=== PATIENT | male | born 1975 | race Caucasian/White ===

== ENCOUNTER 2017-02-02 01:02 | Emergency (ER) | payer OTHER ==
[~2017-02-02] VITALS: Ht 182.9 cm; Wt 96.9 kg
[~2017-02-02 01:02] MED LIST: ABL/5 PO; CTP1 PO; INSU100I2 SC; INSUINJ4 SC; INSUINJ4 SQ; KLN1X PO; LISI-787 PO; METF-384 PO; OMEP40CA PO; PRAZ1CAP28 PO; PRZ/40 PO
[2017-02-02 01:06] VITALS: TEMP 36.8; Ht 182.9 cm; Wt 96.9 kg
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
[2017-02-02 03:45] VITALS: BP 154/105; PULSE 104; O2SAT 98
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
== END 2017-02-02 03:46 | disposition home or self-care (01) ==
LOC: C.EDB 01:04
DX: S89.91XA Unspecified injury of right lower leg, initial encounter (principal); V39.3XXA Occupant (driver) (passenger) of three-wheeled motor vehicle injured in unspecified nontraffic accident, initial encounter; H53.8 Other visual disturbances; E11.9 Type 2 diabetes mellitus without complications; I10 Essential (primary) hypertension; E78.5 Hyperlipidemia, unspecified; F31.9 Bipolar disorder, unspecified; G89.29 Other chronic pain; F17.200 Nicotine dependence, unspecified, uncomplicated; Z86.73 Personal history of transient ischemic attack (TIA), and cerebral infarction without residual deficits; Z86.19 Personal history of other infectious and parasitic diseases; Z87.828 Personal history of other (healed) physical injury and trauma; Z91.81 History of falling; Z79.4 Long term (current) use of insulin; Z79.899 Other long term (current) drug therapy; Z83.3 Family history of diabetes mellitus; Z80.9 Family history of malignant neoplasm, unspecified; Z82.49 Family history of ischemic heart disease and other diseases of the circulatory system

== ENCOUNTER 2017-07-01 21:52 | Emergency (ER) | payer OTHER ==
[~2017-07-01] VITALS: Ht 182.9 cm; Wt 83.1 kg
[2017-07-01 21:54] VITALS: TEMP 36.8; Ht 182.9 cm; Wt 83.1 kg
[2017-07-01] MEDS ORDERED: KETOROLAC TROMETHAMINE 30 MG/ML VIAL IV STA (22:16)
[2017-07-01] MEDS ORDERED: MAGNESIUM SULFATE 1GM / D5W 1 GM BAG IV STA (22:16)
[2017-07-01] MEDS ORDERED: DiphenhydrAMINE HCL 50 MG/ML VIAL IV STA (22:16)
[2017-07-01] MEDS ORDERED: PROCHLORPERAZINE 5 MG/ML 2 ML VIAL IV STA (22:16)
[2017-07-01] MEDS ORDERED: ASPI-390 PO (22:47)
[2017-07-01] MEDS ORDERED: PRLSR20 PO (22:47)
[2017-07-01] MEDS ORDERED: DIPH25CA5 PO (22:47)
[2017-07-01] MEDS ORDERED: MELA1CAP PO (22:47)
[2017-07-01] MEDS ORDERED: PROCHLORPERAZINE INJ 10 MG in SYRINGE 8 ML IV STA (22:51)
[2017-07-01] MEDS ORDERED: DEXAMETHASONE INJ 10 MG in SYRINGE 0 ML IV STA (23:35)
[2017-07-01] MEDS ORDERED: DEXAMETHASONE **PF** INJ 10 MG/ML VIAL ONE (23:48)
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
[2017-07-02 00:01] VITALS: BP 161/106; PULSE 104; O2SAT 96
== END 2017-07-02 00:02 | disposition home or self-care (01) ==
LOC: C.EDB 21:52 → C.EDC 07-02 00:02
DX: R51 Headache (principal); Z86.73 Personal history of transient ischemic attack (TIA), and cerebral infarction without residual deficits; E11.49 Type 2 diabetes mellitus with other diabetic neurological complication; I10 Essential (primary) hypertension; G45.9 Transient cerebral ischemic attack, unspecified; Z83.3 Family history of diabetes mellitus; Z82.49 Family history of ischemic heart disease and other diseases of the circulatory system; Z79.82 Long term (current) use of aspirin

== ENCOUNTER 2017-08-28 12:37 | Emergency (ER) | payer OTHER ==
[~2017-08-28] VITALS: Ht 182.9 cm; Wt 84.0 kg
[~2017-08-28 12:37] MED LIST changes: -ABL/5 PO; +ASPI-390 PO; -CTP1 PO; +DIPH25CA5 PO; -INSU100I2 SC; -INSUINJ4 SC; -INSUINJ4 SQ; -KLN1X PO; -LISI-787 PO; +MELA1CAP PO; -METF-384 PO; -OMEP40CA PO; -PRAZ1CAP28 PO; +PRLSR20 PO; -PRZ/40 PO
[2017-08-28 12:39] VITALS: TEMP 36.7; Ht 182.9 cm; Wt 84.0 kg
--- NOTE | 2017-08-28 14:25 | DIAGNOSTIC IMAGING REPORT ---
ABDOMEN LIMITED (US) HISTORY: Mass Left flank. COMPARISON: None. FINDINGS: Ultrasonic evaluation of the posterior left flank confirms presence of a slightly heterogeneous 7 x 6 x 3 cm masslike process. This is reasonably well-circumscribed. It potentially relates to a lipoma. IMPRESSION: Palpable nodule relates to a 7 x 6 x 3 cm masslike process in the subcutaneous tissues. This potentially relates to a lipoma The above report was generated using voice recognition software. It may contain grammatical, syntax or spelling errors. Electronically signed by: Teofilo Colvin M.D. 08/28/2017 2:23 PM Dictated Date/Time: 08/28/2017 2:22 PM
[2017-08-28 14:49] VITALS: BP 139/102; PULSE 118; O2SAT 96
--- NOTE | 2017-08-28 17:54 | EMERGENCY ROOM VISIT NOTE ---
History First contact with patient: 12:59 Chief Complaint: BACK PAIN Stated Complaint: PAINFUL LUMP ON BACK History of Present Illness The patient is a 42 year old white male who presents to the Emergency Room with complaints of a painful lump on his left flank. He thinks it has been present for over 2 weeks but it just became painful over the last 2 days. He denies any trauma to the area. He denies any bites or stings. He is not sure what it is. His mother accompanies him today. He notes that it is painful when he lays on it or sits against it. No prior history of similar mass. No other complaints at this time. No treatment yet. Review of Systems REVIEW OF SYSTEM: HEENT: No dizziness, visual problems, hearing loss, or tinnitus. There is no difficulty swallowing and no oral lesions are present. PULMONARY: No cough, shortness of breath, sputum production or hemoptysis. CARDIOVASCULAR: No chest pain, palpitations, shortness of breath or peripheral edema. GASTROINTESTINAL: No diarrhea, constipation, nausea, vomiting, or abdominal pain. GENITOURINARY: No dysuria, frequency, urgency or nocturia. NEUROLOGIC: No weakness, muscle tenderness, epilepsy or history of neurological problems. MUSCULOSKELETAL: No history of joint tenderness/swelling. Positive history of chronic back pain. SKIN: No rashes or lesions. PSYCHIATRIC: Positive history of depression and suicidal ideation. ENDOCRINE: No history of diabetes, thyroid disorders, or abnormal hair growth. Past Medical/Surgical History Medical Problems: (1) Acute CVA (cerebrovascular accident) (2) Ankle pain (3) Back pain (4) Back pain (5) Back pain (6) Back strain (7) Bilateral anterior knee pain (8) Bilateral chronic knee pain (9) Bipolar depression (10) Burn from the sun (11) Cellulitis of arm, right (12) Chronic dental pain (13) Contusion of foot (14) Contusion of right knee and lower leg (15) Contusion of right shoulder (16) Dental caries (17) Depression (18) Depressive Disorder Nec (19) Diabetes mellitus type 2 (20) DM (diabetes mellitus) type II controlled, neurological manifestation (21) Fall (22) Headache (23) Headache (24) Headache (25) Homicidal ideations (26) HTN (hypertension) (27) HTN (hypertension) (28) HTN (hypertension) (29) HTN (hypertension) (30) Hyperglycemia (31) Hyperglycemia (32) Hyperlipidemia Nec/Nos (33) Hypertension (34) Hypertension (35) Hypertension Nos (36) Hypoglycemia (37) Left knee pain (38) Low back pain (39) Migraine (40) Migraine (41) Migraine (42) Migraine (43) Migraine (44) Migraine (45) Migraine (46) Migraine (47) Migraine (48) Migraine Unspecified W/O Intract Mgrn W/O Status Migrainosus (49) Mood disorder (50) Mood disorder (51) Mood disorder (52) Mood disorder (53) Multiple abrasions (54) Nausea vomiting and diarrhea (55) Noncompliance with medication regimen (56) Numbness and tingling (57) Pain, dental (58) Pain, dental (59) Pain, dental (60) Right ankle pain (61) Right knee pain (62) Suicidal ideation (63) Suicidal ideation (64) TIA (transient ischemic attack) (65) Tobacco Use Disorder (66) Uncontrolled hypertension (67) Uncontrolled hypertension (68) Uncontrolled hypertension Family History Diabetes mellitus FH: cancer Hypertension Social History Smoking Status: Never Smoker Smokeless Tobacco Use: No Alcohol Use: none Drug Use: none Marital Status: single Housing Status: lives alone Occupation Status: unemployed Current/Historical Medications Scheduled Wzrcodl-Dmrlnfmmhiewd-Grocksgh (Excedrin Migraine), 2 MG PO DAILY Diphenhydramine Hcl (Benadryl), 25-50 MG PO PRN UD Scheduled PRN Melatonin (Melatonin), 1 CAP PO HS PRN for Sleep Omeprazole (Prilosec), 20 MG PO DAILY PRN for ACID REFLEX Physical Exam Vital Signs Date Time Temp Pulse Resp B/P (MAP) Pulse Ox O2 Delivery O2 Flow Rate FiO2 08/28/17 14:49 118 20 139/102 96 08/28/17 12:39 36.7 125 18 141/101 98 Room Air Physical Exam General: Well-developed, well-nourished, middle-aged white male, in obvious discomfort. No acute distress. Sitting on the bed. Alert and oriented. Skin: Warm and dry with good turgor. Extensive tattoos. No rashes or lesions. No ecchymosis or erythema. The patient is not diaphoretic. No abrasions. He has a large firm mass present over the left flank. It is approximately 8 cm x 8 cm. Firm, tender to touch, feels consistent with lipoma. Nonfluctuant. No central core. It is superficial. Musculoskeletal: Good range of motion of the back. Full range of motion of the upper and lower extremities. No pain with palpation over the left paraspinal musculature. Neurologic: Gross sensation is intact across the left flank by soft touch. Medical Decision & Procedures ER Provider Diagnostic Interpretation: Soft tissue ultrasound obtained today was reviewed by me and read by radiology. He has a soft tissue mass that is 7 cm x 6 cm x 3 cm. It is consistent with lipoma. ED Course Patient and his mother were educated regarding today's findings. Conservative care measures were discussed. He was informed that it is likely a lipoma. Soft tissue ultrasound was obtained that is consistent with this. He was instructed to use oral anti-inflammatories as needed for discomfort. Supplement with Tylenol every 6 hours. Ice to the area intermittently until pain resolves. Follow-up with general surgery if he would like to have it excised. Return to the ED for any other concerns. He is currently hypertensive. This is his baseline. He should have it rechecked with his PCP. Patient is aware. Medical Decision Possibility of lipoma, tumor, abscess, and cyst were considered. Medication Reconcilliation Current Medication List: was personally reviewed by me Blood Pressure Screening Blood pressure disposition: Elevated BP felt to be situational Impression Primary Impression: Lipoma of back Departure Information Dispostion Home / Self-Care Condition FAIR Referrals Juan A Kirkpatrick M.D. Forms HOME CARE DOCUMENTATION FORM, MOTRIN USE, TYLENOL USE, IMPORTANT VISIT INFORMATION Patient Instructions [employer] Additional Instructions Apply ice intermittently as needed for discomfort, 3 days, then use moist heat Motrin every 6 hours as needed for discomfort Avoid prolonged pressure over the area until discomfort resolves Follow-up with your PCP as needed Call Dr. Kirkpatrick to discuss surgical removal if desired
== END 2017-08-28 14:51 | disposition home or self-care (01) ==
LOC: C.EDB 12:38 → C.EDD 14:51
DX: D17.1 Benign lipomatous neoplasm of skin and subcutaneous tissue of trunk (principal); G89.29 Other chronic pain; M54.9 Dorsalgia, unspecified; Z86.73 Personal history of transient ischemic attack (TIA), and cerebral infarction without residual deficits; F31.9 Bipolar disorder, unspecified; E11.9 Type 2 diabetes mellitus without complications; I10 Essential (primary) hypertension; Z83.3 Family history of diabetes mellitus; Z80.9 Family history of malignant neoplasm, unspecified; Z82.49 Family history of ischemic heart disease and other diseases of the circulatory system; Z79.82 Long term (current) use of aspirin

== ENCOUNTER 2022-06-16 08:06 | Observation (INO) ==
[2022-06-16] MEDS ORDERED: MIDAZOLAM HCL 1 MG/ML 2ML VIAL ONE (09:43)
[2022-06-16] MEDS ORDERED: niCARdipine HCL INJ 2.5 MG/ML 10 ML AMP ONE (09:43)
[2022-06-16] MEDS ORDERED: HEPARIN (PORCINE) 1000 UNIT/ML 10 ML (CATH LAB USE ONLY) ONE (09:43)
[2022-06-16] MEDS ORDERED: fentaNYL citrate 100 MCG/2 ML VIAL ONE (09:43)
[2022-06-16] MEDS ORDERED: NITROGLYCERIN/D5W 100MCG/ML 20ML SYR ONE (09:44)
--- NOTE | 2022-06-16 09:44 | History & Physical Bridge Note ---
Date of Service June 16, 2022 History & Physical Bridge Note I have examined the patient, reviewed the History & Physical and in the interval since the performance of the History & Physical I have noted the following changes of clinical significance: no changes noted
--- NOTE | 2022-06-16 09:44 | Pre Anesthesia Assessment ---
Date of Service June 16, 2022 Pre Sedation Assessment Vital Signs Temp Pulse Resp BP Pulse Ox O2 Del Method 06/16/22 08:22 36.8 C 89 16 164/99 H 100 Room Air Cardiovascular RRR, no murmur, no edema + S1 normal and + S2 normal; no murmur + femoral pulses present and + radial pulses present; no JVD Respiratory normal respiratory effort, lungs clear to auscultation Pre-Sedation Airway Assessment Smoking Status: Former smoker Hx Sleep Apnea: No Short, Thick Neck: No Thyromental Distance: > or= 3.5 Finger Breadths Oral Cavity: + WNL Mallampati Class: III ASA: ASA4 NPO Status Date of Last Intake of Fluids: 06/16/22 Time of Last Intake of Fluids: 04:00 Last Oral Intake of Fluids Comment: sip with meds Date of Last Intake of Solid Food: 06/13/22 Notes The planned sedation has been discussed with the patient. Informed Consent was obtained. I have identified the patient, determined the appropriateness of sedation and have assessed the patient immediately prior to the procedure. All medicine(s) and interventions are by my order.
--- NOTE | 2022-06-16 10:30 | Cardiac Catheterization ---
Cardiac Cath Procedure Brief Procedure Date June 16, 2022 Pre-Procedure Diagnosis Pre-Procedure Diagnosis: Angina AUC Score AUC Score: 7 Post-Procedure Diagnosis Post-Procedure Diagnosis: Severe CAD Procedure(s) Performed Procedure(s) Performed: Coronary Angiography, Left Heart Cath and LV Angiography Room Service Clerk Andrea Alford MD Senior Java Developer(s) Joelle Ignacio Estimated Blood Loss Estimated Blood Loss: <15cc Medication(s) Medication(s): Fentanyl (12.5 mcg IV), Heparin (5000 units IV), Lidocaine 1% (Local infiltration access site), Nicardipine (250 mcg intra-arterial after arterial sheath insertion) and Versed (1 mg IV) Preliminary Findings Impression: Right dominant coronary anatomy Coronary artery disease moderate diffuse with 90% circumflex obtuse marginal, large vessel likely symptom culprit vessel. Left anterior descending has a smooth 6070 % stenosis possibly more significant after first diagonal Minimal hypokinesis inferior wall with preserved LV function otherwise EF greater than 55% Recommendations Recommendations: PCI without planned CABG Specimens Specimens: None Fluids (cc crystalloids) Fluids (cc crystalloids): 50 Anesthesia Start time: 956, stop time: 1015 Procedural Complication(s) None Disposition Patient referred for PCI same setting
[2022-06-16] MEDS ORDERED: ADENOSINE IV SOLN 3 MG/ML 20 ML VIAL IV ONE (10:46)
[2022-06-16] MEDS ORDERED: hydrALAZINE HCL 20 MG/ML VIAL ONE (10:52)
--- NOTE | 2022-06-16 10:56 | Cardiac Catheterization ---
Cardiac Cath Procedure Full Procedure Date June 16, 2022 Pre-Procedure Diagnosis Pre-Procedure Diagnosis: Angina AUC Score AUC Score: 7 Post-Procedure Diagnosis Post-Procedure Diagnosis: Severe CAD Procedure(s) Performed Procedure(s) Performed: Coronary Angiography, Left Heart Cath and LV Angiography Industrial Hygiene Manager Andrea Alford MD Short Filler Bunch Machine Operator(s) Joelle Ignacio Estimated Blood Loss Estimated Blood Loss: <15cc Medication(s) Medication(s): Fentanyl (12.5 mcg IV), Heparin (5000 units IV), Lidocaine 1% (Local infiltration access site), Nicardipine (250 mcg intra-arterial after arterial sheath insertion) and Versed (1 mg IV) Summary of Findings Impression: Right dominant coronary anatomy Coronary artery disease moderate diffuse with 90% circumflex obtuse marginal, large vessel likely symptom culprit vessel. Left anterior descending has a smooth 6070 % stenosis possibly more significant after second diagonal Minimal hypokinesis inferior wall with preserved LV function otherwise EF greater than 55% Recommendations: Patient referred for coronary intervention left circumflex and FFR interrogation left anterior descending Procedure: Left heart catheterization coronary, LV angiography Access: Right radial Catheters: 6 Czech long glide sheath, 5 Czech [place] 5 Czech straight pigtail Complications: None Coronary angiography: Right dominant anatomy Left main: Moderate caliber and length with minimal calcification Left anterior descending: Type III in distribution. It gives rise to an early diagonal branch followed by a larger second diagonal branch all within its very proximal third. It then courses giving rise to a trivial third diagonal branch before reaching beyond the apex. Within the left anterior descending there is diffuse luminal irregularities with a long 60 to 70% stenosis after the second diagonal branch. The apical segment has serial stenoses of 70 to 80% with thin caliber vessel. Left circumflex: Large but nondominant vessel. Gives rise to a large multi branching obtuse marginal then continues as a very modest caliber vessel giving rise to a single posterolateral branch. The obtuse marginal has a 90% discrete stenosis in its proximal portion. There is an additional 50% stenosis in its midportion Right coronary artery: Moderately large dominant vessel. Gives rise to 2 trivial RV branches in its midportion. At the AV groove it gives rise to a long posterior descending artery modest in caliber and along the AV groove 3 posterior ventricular branches. There is mild luminal irregularities in the proximal midportion of the right coronary artery and a long 60% stenosis at the AV groove. The origin of the posterior descending artery is narrowed by 50%. There is a 6070 % stenosis in its very distal portion (thin caliber) LV angiography: There is very subtle hypokinesis of the inferior wall EF 60% there is no mitral sufficiency Hemodynamics Rest Ao:: 167/101/134 Final Ao: 169/94/122 LV: 169/0/16 Recommendations Recommendations: PCI without planned CABG Specimens Specimens: None Radiation Exposure (mGy) 549 Contrast (mls) 75 Fluids (cc crystalloids) Fluids (cc crystalloids): 50 Anesthesia Start time: 956, stop time: 1015 Procedural Complication(s) None Disposition Patient referred for PCI same setting I attest to the content of the Intraoperative Record and any orders documented therein. Any exceptions are noted below. ACC Data: Senior Grants Officer Cardiac Status Clinical evaluation leading to the procedure 46-year-old male diabetic with multiple cardiovascular risk factors of hypertension and hyperlipidemia in addition to above who presented with symptoms consistent with exertional angina and an increasing pattern. Echocardiogram d emonstrated wall motion abnormality/cardiomyopathy. Patient referred for coronary angiography CAD Presenation: Stable angina Anginal Classification: CCS III Heart Failure: No Cardiogenic Shock within 24 Hours: No Cardiac Arrest within 24 Hours: No Imaging Studies Past 6 Months: Yes Stress Studies Past 6 Months: No Standard Exercise Test: No Stress Echocardiogram: No Stress Testing w/SPECT MPI: No Cardiac CTA: No Coronary Anatomy Dominant: Right Left Main (% Stenosis): Mid (Minimal luminal irregularities) LAD (% Stenosis): Mid (60-70) and Distal (Serial 70-80 in its apical portion, thin caliber) D1 (% Stenosis): Normal D2 (% Stenosis): Proximal (50) Circumflex (% Stenosis): Mid (Moderate irregularities with modest caliber vessel after large obtuse marginal) OM1 (% Stenosis): Proximal (90%) and Mid (50%) RCA (% Stenosis): Distal (60) R PDA (% Stenosis): Ostial (50) and Distal (60) R PL1 (% Stenosis): Normal R PL2 (% Stenosis): Normal Left Ventricular Angiography EF (%): 60 Mitral Regurgitation: None Diagnostic Physicians Name: Andrea Alford MD Status: Elective Closure Device Percutaneous Entry Location: Radial Recommendations: PCI without planned CABG
[2022-06-16] MEDS ORDERED: TICAGRELOR 90 MG TAB ONE (10:59)
--- NOTE | 2022-06-16 11:20 | Post Anesthesia Assessment ---
Date of Service June 16, 2022 Post Sedation Assessment Vital Signs Temp Pulse Resp BP Pulse Ox O2 Del Method 06/16/22 08:22 36.8 C 89 16 164/99 H 100 Room Air Recovery Score Activity: Moves 4 extremities Respiration: Deep Breath/Cough Circulation: +/-20% PreAnes Value Consciousness: Fully Awake Oxygen Saturation: > 92% On Room Air Discharge Sedation Level of Care: Phase I Post Sedation Plan On clinical assessment, the patient appears to have tolerated the sedation without complications. Patient is recovering as anticipated. Patient will continue to be monitored by nursing and may be discharged when carrington tion discharge criteria are met per below protocol. Upon Completions of procedure up to 15 minutes continue every 5 minute vital signs and the P.A.R. score; then discharge to a Phase I or Fast Track to Phase II per the following guidelines: * Discharge Patient to appropriate Phase II area if PAR is 8 or greater or return to pre- procedure baseline. The post - procedure orders will be as directed. * If PAR score is less than 8 or not return to pre-procedure baseline then patient will follow Phase I monitoring till PAR is reached for Phase II. The Phase I may be done in procedure room or may call to secure a Phase I area. * If naloxone or flumazenil are used for reversal, hold in Phase I for continued monitoring from when last reversal dose was given for a minimum of 60 minutes or longer pending the nurse and/or physician discretion of patient condition before discharge to Phase II. Please call the Sedation Physician to re-evaluate and complete post-note for discharge to Phase II area. Do NOT discharge from procedure sedation or Phase 1 until post- sedation evaluation note is complete by procedure /sedation MD Sedation Discharge Instructions to be given to the patient at discharge to home. [facility] Procedure Codes (Charges) Indication for Procedure Indication for procedure: unstable angina Sedation/Anesthesia Procedure 1: Sedation/Anesthesia: 85859 Mod Sedation by a different physician ;Init15 Min Child Age 5&Up (15 mins) Total Sedation Time (minutes): 15
--- NOTE | 2022-06-16 11:23 | Cardiac Catheterization ---
ACC Data: Long Lines Operator Cardiac Status Clinical evaluation leading to the procedure CAD Presenation: Unstable angina Anginal Classification: CCS III Heart Failure: No Cardiogenic Shock within 24 Hours: No Cardiac Arrest within 24 Hours: No Coronary Anatomy LAD (% Stenosis): Mid (Late mid through early distal long eccentric 50 to 70% stenosis) OM1 (% Stenosis): Proximal (90%) and Mid (50%) Diagnostic Physicians Name: Juan Carlos Rojas MD, PhD Closure Device Percutaneous Entry Location: Radial Closure Device: Radial Band Recommendations: PCI without planned CABG PCI Indication: Unstable Angina Lesion Segment Name: Proximal through mid OM1. Culprit Artery: Yes Stenosis Prior to Rx (%): 90% Chronic Total Occlusion: No Pre-Procedure SARTHAK Flow: 3 Previously Treated Lesion: No Lesion Complexity: Non-High/Non-C Lesion Length (mm): 18 mm Thrombus Present: No Bifurcation Lesion: No Guidewire Across Lesion: Yes Lesion #2 Segment Name: Mid to distal LAD Culprit Artery: No Stenosis Prior to Rx (%): 50 to 70% Chronic Total Occlusion: No FFR: Yes Ratio: greater than 0.75% Guidewire Across Lesion: Yes Cardiac Cath Procedure Full Procedure Date June 16, 2022 Pre-Procedure Diagnosis Pre-Procedure Diagnosis: Acute Coronary Syndrome (unstable angina) AUC Score AUC Score: 7 Post-Procedure Diagnosis Post-Procedure Diagnosis: Severe CAD and Successful PCI Procedure(s) Performed Procedure(s) Performed: Drug Eluting Stent and Fractional Flow [place] Sewing Machine Operator Juan Carlos Rojas MD, PhD Freight Handler(s) RT Brina Estimated Blood Loss Estimated Blood Loss: <15cc Medication(s) Medication(s): Fentanyl, Heparin, Hydralazine and Versed Summary of Findings Brief description: Patient had just undergone diagnostic coronary angiography performed by Dr. Andrea Alford. See his report for details. Patient was provided additional sedation including IV fentanyl and Versed. He was provided IV hydralazine for hypertension. An ACT was checked and additional IV heparin was provided as needed to maintain therapeutic anticoagulation. PCI was undertaken using a 6 [place] EBU 3.0 guide catheter. Through this, a BMW reversal guidewire was advanced and positioned distally in the obtuse marginal branch of the circumflex. Lesion was predilated with a 2.0 x 12 mm balloon up to 12 sophy multiple times. Balloon was removed. A 2.25 x 15 mm drug-eluting stent was then advanced and positioned such that its distal end was beyond the distal portion of the lesion. This was then deployed at 12 sophy. Stent balloon was removed. A 2.5 x 8 mm Scott drug-eluting stent was then advanced over the guidewire and positioned just proximal to the initial stent with its distal edge overlapped with the proximal portion of the initial stent. This was then deployed at 14 sophy. Balloon was removed. The entire stent train (except the most distal portion)was postdilated using a 2.5 x 9 mm NC sprinter balloon in order to taper the proximal to distal diame ter. Balloon was removed and sales vice president angiography was performed. Guidewire was pulled back into the guide catheter and we next proceeded with FFR analysis of the LAD lesion. Transaq versa guidewire was redirected into the LAD and positioned in the distal vessel. Over this, the Navvus catheter was advanced and positioned with its transducer just distal to the guide catheter tip. Pressures were equalized. The Navvus catheter was then advanced and positioned distal to the LAD lesion. Adenosine was then infused at 140 mcg/kg/min for 3 minutes. Continuous FFR analysis was performed. Peak FFR was recorded. Adenosine was discontinued and the FFR catheter was then removed. The guidewire was removed and final angiographic evaluation was performed. The guide catheter was then removed. Radial artery sheath was removed and hemostasis was obtained using a TR band. Patient was hemodynamically stable and asymptomatic. He was returned to the recovery area. This ended the case. FFR and PCI findings: 1. FFR of LAD equals 0.82., Therefore, this is not hemodynamically significant. 2. PCI of OM (90% stenosis) with 2 overlapped drug-eluting stents resulting in 0% residual stenosis post PCI 3. SARTHAK-3 flow post PCI 4. There is no evidence of dissection or perforation in the LAD or the OM post FFR and PCI respectively. Summary: 1. Successful PCI with implantation of 2 overlapped drug-eluting stents to the OM. FFR analysis of the angiographically borderline LAD stenosis reveals this does not meet hemodynamic significance. 2. Patient will remain on dual antiplatelet therapy for 1 to 2 years. 3. Guideline directed medical therapy for secondary prevention of coronary disease to include; low-dose aspirin, high intensity statin therapy, beta- vera, plus or minus REJI inhibitor/ARB as tolerated. Hemodynamics Rest Ao:: 180/105 mmHg, mean 137 mmHg Final Ao: 126/76 mmHg, mean 99 mmHg LV: Performed during diagnostic by Dr. Alford Recommendations Recommendations: PCI without planned CABG Specimens Specimens: None Radiation Exposure (mGy) 2006 mGy, 14.6 minutes fluoroscopy time (combined diagnostic and interventi Contrast (mls) 215 mL (combined diagnostic and interventional procedures) Procedural Complication(s) None Disposition Recovery Room\PACU I attest to the content of the Intraoperative Record and any orders documented therein. Any exceptions are noted below. [facility] Card Cath Procedure Codes Cardiac Catheterization Procedure 1: Cardiovascular Cath Procedures: 23513 (Doppler) Pressure Wire (LAD) Procedure 2: Cardiovascular Cath Procedures: 00130 Pharmacologic agent admin & hemodynamics Moderate Sedation Procedure 1: Sedation/Anesthesia: 93297 Mod Sedation by a different physician ;Init15 Min Child Age 5&Up (15 minutes) Stenting Procedure 1: Cardiovascular Stent Procedures: 68087 Perc transcatheter placement of intracoronary stent(s), with ang (Left circumflex) PG Care Time/CCT Total # of Minutes Spent Total Time Spent with Patient: Total time spent is greater than 50% in coordination of care (as documented) at patient's floor/unit and/or counseling patient:
--- NOTE | 2022-06-16 15:37 | Electrocardiogram Report ---
Test Reason : Blood Pressure : / mmHG Vent. Rate : 100 BPM Atrial Rate : 100 BPM P-R Int : 156 ms QRS Dur : 092 ms QT Int : 364 ms P-R-T Axes : 029 -08 035 degrees QTc Int : 469 ms Normal sinus rhythm Normal ECG When compared with ECG of 13-JUL-2015 12:21, No significant change was found Confirmed by Yosi Flores ([id number]) on 06/16/2022 3:37:24 PM Referred By: Zach Arevalo Confirmed By:Yosi Flores
[2022-06-16] MEDS ORDERED: GLUCOSE 40% GEL 15 GM TUBE PO PRN (16:28)
[2022-06-16] MEDS ORDERED: DEXTROSE 50% 50 ML SYRINGE IV PRN (16:28)
[2022-06-16] MEDS ORDERED: GLUCAGON FOR INJ 1 MG VIAL SQ PRN (16:28)
[2022-06-16] MEDS ORDERED: CARBOHYDRATES FOR HYPOGLYCEMIA PO PRN (16:28)
[2022-06-16] MEDS ORDERED: GLUCOSE 10 TAB/TUBE PO PRN (16:28)
--- NOTE | 2022-06-16 16:34 | Hospitalist Consultation ---
Date of Consultation June 16, 2022 Assessment & Plan (1) S/P cardiac catheterization: (2) History of percutaneous coronary intervention: (3) Type 2 diabetes mellitus: (4) Hypertension: (5) Hyperlipidemia: (6) Systolic congestive heart failure: (7) Mood disorder: This is a 46-year-old male with PMH of hypertension, type 2 diabetes, dyslipidemia, HFrEF, mood disorder, history of noncompliance and other medical problems listed below who presented this morning as a scheduled cardiac catheterization and is s/p PCI with POLY x [address] Rojas. Follows with Dr. Arevalo in clinic was found to have an abnormal stress echocardiogram in May 2022 showing mild global hypokinesis with an EF of 45% Underwent diagnostic cardiac catheterization today by Dr. Alford and then required intervention by Dr. Rojas with POLY x2 to OM History of Present Illness Reason for Consultation: Post cath medical management Attending Physician: Andrea Alford MD History of Present Illness This is a 46-year-old male with PMH of hypertension, type 2 diabetes, dyslipidemia, HFrEF, mood disorder, history of noncompliance and other medical problems listed below who presented this morning as a scheduled cardiac catheterization. Follows with Dr. Arevalo in clinic was found to have an abnormal stress echocardiogram in May 2022 showing mild global hypokinesis with an EF of 45%. Had been having some left-sided chest and shoulder pain for the past few months. Underwent diagnostic cardiac catheterization today by Dr. Alford and then required intervention by Dr. Rojas with POLY x2 to OM. Allergies Allergy/AdvReac Type Severity Reaction Status Date / Time adhesive Allergy Intermediate Contact Verified 06/16/22 08:39 dermatitis latex Allergy Mild RASH Verified 06/16/22 08:39 tramadol Allergy Unknown n/v Verified 06/16/22 08:39 Home Medications Medication Instructions Recorded Confirmed Type amlodipine 5 mg-benazepril 20 mg 1 cap PO DAILY 06/16/22 06/16/22 History capsule (Lotrel) aspirin 81 mg tablet,delayed 81 mg PO DAILY 06/16/22 06/16/22 History release atorvastatin 20 mg tablet 20 mg PO DAILY 06/16/22 06/16/22 History duloxetine 30 mg capsule,delayed 30 mg PO DAILY 06/16/22 06/16/22 History release gabapentin 300 mg capsule 300 mg PO TID 06/16/22 06/16/22 History insulin degludec 100 unit/mL (3 10 unit subcut BID 06/16/22 06/16/22 History mL) subcutaneous pen (Tresiba FlexTouch U-100 insulin) inulin 2,500 mg-vitamin D3 500 1 tab PO DAILY 06/16/22 06/16/22 History unit chewable tablet (Fiber Gummies with Vitamin D3) metformin 500 mg tablet 1,000 mg PO BID 06/16/22 06/16/22 History metoprolol succinate 50 mg 50 mg PO DAILY 06/16/22 06/16/22 History tablet,extended release 24 hr montelukast 10 mg tablet 10 mg PO DAILY 06/16/22 06/16/22 History pantoprazole 40 mg tablet,delayed 40 mg PO DAILY 06/16/22 06/16/22 History release Patient History Medical History (Updated 06/16/22 @ 16:41 by Carly Jones PA-C) Bipolar 1 disorder, depressed Central retinal artery occlusion, left eye Diabetic peripheral neuropathy Hyperlipidemia Hypertension Ischemic cardiomyopathy Mood disorder Noncompliance Systolic congestive heart failure Type 2 diabetes mellitus Surgical History History of dental surgery S/P arthroscopic knee surgery Family History Other Cancer Diabetes Hypertension Social History Smoking Status: Former smoker Smoking End Date: 2019; Hx Alcohol Use: No Hx Substance Use: No Preferred Language: [place] Rican Current Living Situation: Family Feels Safe at Home: Yes Review of Systems Review of Systems: At least ten systems reviewed and negative except as noted in the HPI. Results & Data Results & Data ([facility]) Vital Signs (Past 12 Hours) Vital Signs Temp Pulse Resp BP Pulse Ox O2 Del Method 06/16/22 16:15 95 H 14 170/98 H 98 Room Air 06/16/22 15:30 98 H 16 174/122 H 98 Room Air 06/16/22 15:00 98 H 16 174/122 H 98 Room Air 06/16/22 14:50 98 H 14 147/120 H 98 Room Air 06/16/22 14:30 99 H 14 172/108 H 99 Room Air 06/16/22 14:15 99 H 16 143/113 H 99 Room Air 06/16/22 14:00 102 H 14 153/99 H 98 Room Air 06/16/22 13:45 103 H 14 179/113 H 98 Room Air 06/16/22 13:30 100 H 14 154/104 H 98 Room Air 06/16/22 13:15 101 H 14 163/112 H 98 Room Air 06/16/22 13:00 101 H 14 166/106 H 98 Room Air 06/16/22 12:45 73 14 148/101 H 98 Room Air 06/16/22 12:13 75 14 162/108 H 98 Room Air 06/16/22 11:45 72 16 155/118 H 98 Room Air 06/16/22 11:30 70 16 170/107 H 98 Room Air 06/16/22 11:15 70 16 176/107 H 98 Room Air 06/16/22 11:04 70 16 105/54 L 98 Room Air 06/16/22 08:22 36.8 C 89 16 164/99 H 100 Room Air
--- NOTE | 2022-06-16 17:17 | History & Physical Report ---
Date of Service June 16, 2022 Assessment & Plan (1) S/P cardiac catheterization: (2) Ischemic cardiomyopathy: (3) History of percutaneous coronary intervention: Plan: This is a 46-year-old male with PMH of hypertension, type 2 diabetes, dyslipidemia, HFrEF, mood disorder, history of noncompliance and other medical problems listed below who presented this morning as a scheduled cardiac catheterization and is s/p POLY x [address] Rojas. History 3 months constant left upper CP, had abnormal stress echocardiogram in May 2022 showing mild global hypokinesis with an EF of 45% Underwent diagnostic cardiac catheterization today by Dr. Alford and then requi red intervention by Dr. Rojas with POLY x2 to OM Resting comfortably post procedure Will remain on dual antiplatelet therapy for 1 to 2 years, per cards Continue baby aspirin, beta vera, increase to high intensity statin, plus or minus REJI inhibitor/ARB as tolerated Cardiology consulted (4) Type 2 diabetes mellitus: Plan: May 2022 a1c 7.5 Hold home agents Basal/bolus insulin while admitted [facility] (5) Hypertension: Plan: BP currently 142/78. Reportedly has been elevated around 160s/100s at home. Current BP regimen amlodipine-benazepril and Topril 50mg daily, also currently on 0.5" ntg paste Q6H (6) Hyperlipidemia: Plan: Increasing atorvastatin to 40mg daily (7) Mood disorder: Plan: H/o bipolar disorder and MED. Stable mood, per patient. Currently on Cymbalta, looking to establish with psychiatrist Code status: FULL PCP: Dr. Gordillo Dispo: Observation PCU Patient seen in collaboration with Dr. Damon. Please see addendum. Admission and Anticipated Discharge Date Admission Date: June 16, 2022 History of Present Illness Chief Complaint: Status post cath Primary Care Provider: NO PCP This is a 46-year-old male with PMH of hypertension, type 2 diabetes, dyslipidemia, HFrEF, mood disorder, history of noncompliance and other medical problems listed below who presented this morning as a scheduled cardiac catheterization. Was referred to Dr. Arevalo last month due to ongoing upper left chest/shoulder pain that was constant in nature and aching. States that pain did radiate into his upper back but not down his arm or jaw. Denies any associated shortness of breath, nausea or vomiting. Was found to have an abnormal stress echocardiogram in May 2022 showing mild global hypokinesis with an EF of 45%. Underwent diagnostic cardiac catheterization today by Dr. Alford and then required intervention by Dr. Rojas with POLY x2 to OM. Currently feeling comfortable with pain in left upper chest almost completely resolved. No shortness of breath, nausea or vomiting. No fever, chills, lightheadedness, nausea, vomiting, abdominal pain, dysuria, diarrhea constipation. Patient lives with his parents manages his own medication. Been less anxious now after procedure. History of bipolar disorder, taking Cymbalta. Quit smoking cigarettes in 2019 but smokes marijuana daily. Allergies Allergy/AdvReac Type Severity Reaction Status Date / Time adhesive Allergy Intermediate Contact Verified 06/16/22 08:39 dermatitis latex Allergy Mild RASH Verified 06/16/22 08:39 tramadol Allergy Unknown n/v Verified 06/16/22 08:39 Home Medications Medication Instructions Recorded Confirmed Type amlodipine 5 mg-benazepril 20 mg 1 cap PO DAILY 06/16/22 06/16/22 History capsule (Lotrel) aspirin 81 mg tablet,delayed 81 mg PO DAILY 06/16/22 06/16/22 History release atorvastatin 20 mg tablet 20 mg PO DAILY 06/16/22 06/16/22 History duloxetine 30 mg capsule,delayed 30 mg PO DAILY 06/16/22 06/16/22 History release gabapentin 300 mg capsule 300 mg PO TID 06/16/22 06/16/22 History insulin degludec 100 unit/mL (3 10 unit subcut BID 06/16/22 06/16/22 History mL) subcutaneous pen (Tresiba FlexTouch U-100 insulin) inulin 2,500 mg-vitamin D3 500 1 tab PO DAILY 06/16/22 06/16/22 History unit chewable tablet (Fiber Gummies with Vitamin D3) metformin 500 mg tablet 1,000 mg PO BID 06/16/22 06/16/22 History metoprolol succinate 50 mg 50 mg PO DAILY 06/16/22 06/16/22 History tablet,extended release 24 hr montelukast 10 mg tablet 10 mg PO DAILY 06/16/22 06/16/22 History pantoprazole 40 mg tablet,delayed 40 mg PO DAILY 06/16/22 06/16/22 History release Past Med/Surg History Medical History Bipolar 1 disorder, depressed Central retinal artery occlusion, left eye Diabetic peripheral neuropathy Hyperlipidemia Hypertension Ischemic cardiomyopathy Mood disorder Noncompliance Systolic congestive heart failure Type 2 diabetes mellitus Surgical History History of dental surgery S/P arthroscopic knee surgery Family History Other Cancer Diabetes Hypertension Social History Smoking Status: Former smoker Smoking End Date: 2019; Hx Alcohol Use: No Hx Substance Use: No Preferred Language: Latvian Current Living Situation: Family Feels Safe at Home: Yes Review of Systems Review of Systems: At least ten systems reviewed and negative except as noted in the HPI. Physical Exam Physical Exam: General Appearance: WD/WN, vitals as above, NAD, sitting up in bed, pleasant, conversing easily Head: normocephalic, atraumatic Eyes: normal inspection, PERRL, conjunctivae normal, anicteric sclerae ENT: external ear and nose normal, oropharynx normal Neck: normal visual inspection, trachea midline, no thyromegaly Respiratory: normal respiratory effort, lungs clear to auscultation, no wheeze, rales, rhonchi. No accessory muscle use Cardiovascular: Tachycardic rate, regular rhythm, no murmur, normal peripheral pulses, no BLE edema. Vessels: no JVD Chest: normal inspection of chest Abdomen/GI: normal bowel sounds, soft, nontender, no hepatosplenomegaly Extremities/Musculoskeletal: no cyanosis or clubbing, extremities motor strength 5/5 Neurologic: PERRL, EOMI, accommodation nl, no face palsy, no dysarthria, CN's II-XI intact bilaterally and moves all extremities Psychiatric: A+Ox3, euthymic affect Skin: no rashes, normal color, warm/dry Results & Data Results & Data ([facility]) Vital Signs (Past 12 Hours) Vital Signs Temp Pulse Resp BP Pulse Ox O2 Del Method 06/16/22 16:15 95 H 14 170/98 H 98 Room Air 06/16/22 15:30 98 H 16 174/122 H 98 Room Air 06/16/22 15:00 98 H 16 174/122 H 98 Room Air 06/16/22 14:50 98 H 14 147/120 H 98 Room Air 06/16/22 14:30 99 H 14 172/108 H 99 Room Air 06/16/22 14:15 99 H 16 143/113 H 99 Room Air 06/16/22 14:00 102 H 14 153/99 H 98 Room Air 06/16/22 13:45 103 H 14 179/113 H 98 Room Air 06/16/22 13:30 100 H 14 154/104 H 98 Room Air 06/16/22 13:15 101 H 14 163/112 H 98 Room Air 06/16/22 13:00 101 H 14 166/106 H 98 Room Air 06/16/22 12:45 73 14 148/101 H 98 Room Air 06/16/22 12:13 75 14 162/108 H 98 Room Air 06/16/22 11:45 72 16 155/118 H 98 Room Air 06/16/22 11:30 70 16 170/107 H 98 Room Air 06/16/22 11:15 70 16 176/107 H 98 Room Air 06/16/22 11:04 70 16 105/54 L 98 Room Air 06/16/22 08:22 36.8 C 89 16 164/99 H 100 Room Air Medications Administered Current Inpatient Medications Amlodipine Besylate (Amlodipine Besylate 5 Mg Tab) 5 mg PO DAILY MAE Stop: 07/17/22 08:59 Aspirin (Aspirin 81 Mg Ectab) 81 mg PO DAILY MAE Stop: 07/17/22 08:59 Atorvastatin Calcium (Atorvastatin 40 Mg Tab) 40 mg PO DAILY MAE Stop: 07/17/22 08:59 Calcium Polycarbophil (Calcium Polycarbophil 625mg Tab) 625 mg PO DAILY MAE Stop: 07/17/22 08:59 Clopidogrel Bisulfate (Clopidogrel Bisulfate 300 Mg Tab) 300 mg PO NOW ONE Stop: 06/17/22 01:01 Dextrose (Dextrose 50% 50 Ml Syringe) 25 - 50 ml IV UD PRN; Protocol PRN Reason: Hypoglycemia Protocol Stop: 07/16/22 16:27 Duloxetine HCl (Duloxetine Hcl 30 Mg Cap) 30 mg PO DAILY MAE Stop: 07/17/22 08:59 Enalapril Maleate (Enalapril Maleate 10 Mg Tab) 20 mg PO DAILY MAE Stop: 07/17/22 08:59 Gabapentin (Gabapentin 300 Mg Cap) 300 mg PO BID [facility] Stop: 07/16/22 20:59 Glucagon (Glucagon For Inj 1 Mg Vial) 1 mg SQ UD PRN; Protocol PRN Reason: Hypoglycemia Protocol Stop: 07/16/22 16:27 Glucose (Glucose 40% Gel 15 Gm Tube) 15 - 30 gm PO UD PRN; Protocol PRN Reason: Hypoglycemia Protocol Stop: 07/16/22 16:27 Glucose (Glucose 10 Tab/Tube) 4 - 8 tab PO UD PRN; Protocol PRN Reason: Hypoglycemia Treatment Stop: 07/16/22 16:27 Insulin Aspart (Insulin Aspart Per Unit) 0 units SC ACHS MAE Stop: 07/16/22 16:29 Last Admin: 06/16/22 17:20 Dose: Not Given Insulin Glargine (Lantus Per Unit Charge) 0 - 10 units SQ BID MAE Stop: 07/16/22 20:59 Miscellaneous (Carbohydrates For Hypoglycemia ) 15 - 30 gm PO UD PRN PRN Reason: Hypoglycemia Protocol Stop: 07/16/22 16:27 Montelukast Sodium (Montelukast Sodium 10 Mg Tablet) 10 mg PO DAILY MAE Stop: 07/17/22 08:59 Nitroglycerin (Nitroglycerin 2% Ointment 30gm Tube) 0.5 inch EXT Q6H MAE Stop: 07/16/22 12:14 Last Admin: 06/16/22 18:36 Dose: 0.5 inch Pantoprazole Sodium (Pantoprazole 40 Mg Tab) 40 mg PO DAILY MAE Stop: 07/17/22 08:59 Vitamin D (Cholecalciferol 1,000 Units 25 Mcg Tab) 1,000 units PO DAILY MAE Stop: 07/17/22 08:59 Code Status & VTE Plan VTE Prophylaxis Plan VTE Prophylaxis will be ordered: No Reason for no VTE drug order: Treatment not indicated Supervising Physician Co-Signing Physician Notes I have seen and examined the patient and have discussed the case with the provider above. I agree with the assessment and plan as stated. The patient is a 46-year-old man With type 2 diabetes who actively smokes marijuana presents with persistent chest discomfort and further work-up with a cardiac catheterization after an abnormal stress echocardiogram in the outpatient setting. The resting study revealed mild global hypokinesis with an EF of 45% and the stress portion was canceled. His pain before the catheterization was described as left chest pain with radiation to the back that have been ongoing for 5 months. Post catheterization he reports no chest pain trouble breathing or other issues. He denies any pain in his right wrist after a right radial artery approach. He denies any pain in his back. We discussed the importance of quitting smoking altogether and he verbalized understanding. Physical exam reveals a well-nourished well-developed man in no acute distress. He has normal respiratory effort and clear lungs throughout. Cardiac auscultation reveals S1/S2 with no evidence of murmurs gallops or rubs. He has no peripheral edema and is euvolemic. Extremities are warm and well-perfused and right radial pulse is 2+. There is no gross focal neuromuscular deficits and abdomen exam is unremarkable. Cardiac catheterization today required intervention with 2 drug-eluting stents to the OM. He continues on medical management including clopidogrel with load, Nitropaste every 6 hours, baby aspirin, atorvastatin 40 mg daily, enalapril 20 mg daily. His glucose is around goal at 185 and he continues on basal bolus insulin in the hospital with metformin held. Most recent A1c is 7.5 on 06/02/2022 per outpatient record review. Continue monitoring in PCU setting wi th a.m. labs in a.m. and discharge when appropriate per cardiology. DO Nelson
[2022-06-16] MEDS: NITROGLYCERIN 2% OINTMENT 30GM TUBE EXT SCH ×2 (17:19→18:36)
[2022-06-16] MEDS: INSULIN ASPART PER UNIT SC SCH ×2 (17:20→20:51)
[2022-06-16] MEDS: LANTUS PER UNIT CHARGE SQ SCH (20:52)
[2022-06-16] MEDS: GABAPENTIN 300 MG CAP PO SCH (20:58)
[2022-06-17] MEDS: NITROGLYCERIN 2% OINTMENT 30GM TUBE EXT SCH ×3 (00:11→12:38)
[2022-06-17] MEDS ORDERED: METOPROLOL TARTRATE 1 MG/ML VIAL IV STA (00:23)
[2022-06-17] MEDS ORDERED: CLOPIDOGREL BISULFATE 300 MG TAB PO ONE (01:00)
[2022-06-17 06:03] LABS: Hematocrit (blood only) 38.6 % (40.1-51.0); Hemoglobin 13.4 g/dl (14.0-18.0); Mean Corpuscular Hemoglobin 28.7 pg (25.0-34.0); Mean Corpuscular Hgb Conc 34.7 g/dL (32.0-36.0); Mean Corpuscular Volume 82.7 fL (80.0-100.0); Mean Platelet Volume 10.3 fL (9.4-12.4); Platelet Count 356 K/uL (130-400); RDW Coefficient of Variation 12.3 % (11.5-14.5); RDW Standard Deviation 37.5 fL (36.4-46.3); Red Blood Count 4.67 M/uL (4.63-6.08); White Blood Count 11.89 K/ul (4.8-10.8)
[2022-06-17 06:49] LABS: BUN Creatinine Ratio 12.5 (10-20); Calcium 8.9 mg/dl (8.5-10.1); Est GFR (Non-African American) 107.9 ml/min; Potassium 3.6 mmol/L (3.5-5.1)
[2022-06-17] MEDS: INSULIN ASPART PER UNIT SC SCH ×2 (08:31→12:30)
[2022-06-17] MEDS: LANTUS PER UNIT CHARGE SQ SCH (08:31)
[2022-06-17] MEDS: GABAPENTIN 300 MG CAP PO SCH (08:32)
[2022-06-17] MEDS ORDERED: CHOLECALCIFEROL 1,000 UNITS 25 MCG TAB PO SCH (09:00)
[2022-06-17] MEDS ORDERED: ATORVASTATIN 40 MG TAB PO SCH (09:00)
[2022-06-17] MEDS ORDERED: DULoxetine HCL 30 MG CAP PO SCH (09:00)
[2022-06-17] MEDS ORDERED: ASPIRIN 81 MG ECTAB PO SCH (09:00)
[2022-06-17] MEDS ORDERED: CALCIUM POLYCARBOPHIL 625MG TAB PO SCH (09:00)
[2022-06-17] MEDS ORDERED: ENALAPRIL MALEATE 10 MG TAB PO SCH ×2 (09:00)
[2022-06-17] MEDS ORDERED: AMLODIPINE BENAZEPRIL PO SCH (09:00)
[2022-06-17] MEDS ORDERED: PANTOprazole 40 MG TAB PO SCH (09:00)
[2022-06-17] MEDS ORDERED: MONTELUKAST SODIUM 10 MG TABLET PO SCH (09:00)
[2022-06-17] MEDS ORDERED: amLODIPine BESYLATE 5 MG TAB PO SCH (09:00)
--- NOTE | 2022-06-17 09:05 | Cardiology Progress Note ---
Date of Service June 17, 2022 Assessment & Plan (1) CAD (coronary artery disease): Plan S/p PCI to large OM branch nonobstructive LAD lesion with FFR of 0.82 will require outpatient stress testing as an outpatient in 1 month to determine if ischemia is present in the LAD territory DAPT for 12 months then asa lifelong ok to d/c to home from cardiac standpoint, my office will call to arrange f/u Patient's mother reports that he's been suffering from recurrent syncope which the patient denied previously they appear to be orthostatic with patient admitting to not drinking fluids regularly increased fluid intake recommended will start metoprolol succinate 25 mg daily and obtain outpatient zio patch monitor will decrease amlodipine to 2.5 mg daily continue enalapril and atorvastatin Admission and Anticipated Discharge Date Admission Date: June 16, 2022 Subjective Pt seen and examined. Chart reviewed. Telemetry reviewed. Review of Systems Review of Systems: All systems reviewed & are unremarkable except as noted in HPI & below Physical Exam Physical Exam: General: Awake, alert and oriented x 3. No acute distress. HEENT: Normocephalic, atraumatic. Pupils equal, round and reactive to light and accommodation. Extraocular muscles are intact. Anicteric sclera. Moist mucous membranes. Neck: No JVD. No bruit. Cardiovascular: Regular. Positive S-4. Normal S-1 and S-2. No S-3. No murmurs or rubs. Pulmonary: Clear to auscultation B/L. No rales, rhonchi or wheezing Abdomen: Bowel sounds x 4, soft. No rebound, guarding or tenderness. No organomegaly. Extremities: No clubbing, cyanosis or edema. +2 pedal pulses bilaterally. Skin: Warm and dry. Results & Data ([facility]) Vital Signs (Past 12 Hours) Vital Signs Temp Pulse Pulse Resp BP BP Pulse Ox 06/17/22 07:40 37.1 C 101 H 18 103/72 96 06/17/22 07:38 102 H 06/17/22 05:47 103 H 96/62 L 06/17/22 02:16 37.0 C 98 H 18 129/80 97 06/17/22 01:16 104 H 122/89 06/17/22 00:42 105 H 170/110 H 06/17/22 00:41 105 H 170/110 H 06/17/22 00:18 101 H 190/130 H 06/16/22 22:10 102 H 06/16/22 22:26 36.8 C 101 H 18 136/91 99 O2 Del Method 06/17/22 07:40 Room Air 06/17/22 07:38 06/17/22 05:47 06/17/22 02:16 Room Air 06/17/22 01:16 06/17/22 00:42 06/17/22 00:41 06/17/22 00:18 06/16/22 22:10 06/16/22 22:26 Room Air
[2022-06-17] MEDS ORDERED: CLOPIDOGREL BISULFATE 75 MG TAB PO ONE (13:35)
--- NOTE | 2022-06-17 13:41 | Discharge Summary ---
Date of Service June 17, 2022 Admission HPI Per Admitting Provider This is a 46-year-old male with PMH of hypertension, type 2 diabetes, dyslipidemia, HFrEF, mood disorder, history of noncompliance and other medical problems listed below who presented this morning as a scheduled cardiac catheterization. Was referred to Dr. Arvealo last month due to ongoing upper left chest/shoulder pain that was constant in nature and aching. States that pain did radiate into his upper back but not down his arm or jaw. Denies any associated shortness of breath, nausea or vomiting. Was found to have an abnormal stress echocardiogram in May 2022 showing mild global hypokinesis with an EF of 45%. Underwent diagnostic cardiac catheterization today by Dr. Alford and then required intervention by Dr. Rojas with POLY x2 to OM. Currently feeling comfortable with pain in left upper chest almost completely resolved. No shortness of breath, nausea or vomiting. No fever, chills, lightheadedness, nausea, vomiting, abdominal pain, dysuria, diarrhea constipation. Patient lives with his parents manages his own medication. Been less anxious now after procedure. History of bipolar disorder, taking Cymbalta. Quit smoking cigarettes in 2019 but smokes marijuana daily. Admission Exam Per Admitting Provider General Appearance:WD/WN, vitals as above, NAD, sitting up in bed, pleasant, conversing easily Head: normocephalic, atraumatic Eyes:normal inspection, PERRL, conjunctivae normal, anicteric sclerae ENT: external ear and nose normal, oropharynx normal Neck: normal visual inspection, trachea midline, no thyromegaly Respiratory:normal respiratory effort, lungs clear to auscultation, no wheeze, rales, rhonchi. No accessory muscle use Cardiovascular:Tachycardic rate, regular rhythm, no murmur, normal peripheral pulses, no BLE edema. Vessels: no JVD Chest: normal inspection of chest Abdomen/GI: normal bowel sounds, soft, nontender, no hepatosplenomegaly Extremities/Musculoskeletal: no cyanosis or clubbing, extremities motor strength 5/5 Neurologic: PERRL, EOMI, accommodation nl, no face palsy, no dysarthria, CN's II-XI intact bilaterally and moves all extremities Psychiatric:A+Ox3, euthymic affect Skin: no rashes, normal color, warm/dry Principal Diagnosis Status postcardiac catheterization Ischemic cardiomyopathy Severe Coronary artery disease Discharge Exam GENERAL: Alert and oriented x3. NAD, on RA. HEENT: No pallor, no icterus. Pupils equal, round and reactive to light. Oral mucosa moist. NECK: No JVD, no neck masses. HEART: S1 and S2 heard. Regular rate and rhythm. No murmur, no gallop. RESPIRATORY SYSTEM: Normal AP diameter. No accessory muscle use. No wheezing, no crackles. ABDOMEN: Soft, bowel sounds present, nontender, no distention. CENTRAL NERVOUS SYSTEM: No facial droop. Speech is clear. Obeys simple commands. Moves extremities. EXTREMITIES: No edema, no erythema seen. Discharge Data Allergies Allergy/AdvReac Type Severity Reaction Status Date / Time adhesive Allergy Intermediate Contact Verified 06/16/22 08:39 dermatitis latex Allergy Mild RASH Verified 06/16/22 08:39 tramadol Allergy Unknown n/v Verified 06/16/22 08:39 Consultations 06/16/22 12:05 Consult Hospitalist Routine 06/16/22 17:15 Consult Cardiology Routine Procedures Performed Operation Date: 06/16/22 09:30 Actual Procedures p Cineradiography w/Routine Exam - Andrea Alford MD p Cath, Left with Cors and Vent - Andrea Alford MD s Drug Eluting Stent SGl Vessel - Juan Carlos Rojas MD, PhD s Fraction Flow [place] SGL Ves - Juan Carlos Rojas MD, PhD Ordered Studies 06/16/22 09:30 CL Cath Imgs for PACS use only Routine Hospital Course (1) S/P cardiac catheterization: (2) Ischemic cardiomyopathy: (3) History of percutaneous coronary intervention: This is a 46-year-old male with PMH of hypertension, type 2 diabetes, dyslipidemia, HFrEF, mood disorder, history of noncompliance and other medical problems listed below who presented this morning as a scheduled cardiac cat heterization and is s/p POLY x [address] Rojas on 06/16/2022. He was managed for the following: Status postcardiac catheterization Ischemic cardiomyopathy Severe Coronary artery disease History 3 months constant left upper CP, had abnormal stress echocardiogram in May 2022 showing mild global hypokinesis with an EF of 45% Underwent diagnostic cardiac catheterization today by Dr. Alford and then required intervention by Dr. Rojas with POLY x2 to OM on 06/16/2022 Resting comfortably and no chest pain. Will remain on dual antiplatelet therapy for 1 years f/b asa lifelong. Continue baby aspirin, beta vera, increase to high intensity statin, plus REJI inhibitor Cardio f/u as OP, stress test and zio patch monitoring as OP. (4) Type 2 diabetes mellitus: May 2022 a1c 7.5 Hold home agents Basal/bolus insulin while admitted [facility] (5) Hypertension: BP currently 142/78. Reportedly has been elevated around 160s/100s at home. Current BP regimen amlodipine-benazepril and Topril 50mg daily, also currently on 0.5" ntg paste Q6H (6) Hyperlipidemia: Increasing atorvastatin to 40mg daily (7) Mood disorder: H/o bipolar disorder and MED. Stable mood, per patient. Currently on Cymbalta, looking to establish with psychiatrist Code status: FULL PCP: Dr. Rand Lei: Observation PCU Plan Patient being discharged home with following instruction at the point of discharge: Follow-up with your primary care physician within a week time and likely you will need labs CBC/CMP/magnesium/phosphorus. Follow-up with your cardiology as an outpatient in 1 to 2 weeks time, you might need outpatient stress testing in a month time. Encourage fluid intake and protein intake. You will likely need outpatient Zio patch monitoring, coordinate with the cardiology office. After you underwent cardiac catheterization, you received 2 stents to your heart artery by the name of " OM". Take your medications as prescribed. Home Health Attestation I certify that this patient is under my care and that I, or a physicians information assistant working with me, had a face to-face encounter that meets the home health [id number] encounter requirements with this patient. The encounter with the patient was in whole, or in part, for the following medical condition, which is the primary reason for home health care (list medical condition): I certify that, based on my findings, the following services are medically necessary home health services: My clinical findings support the need for the above services because: Further, I certify that my clinical findings support that this patient is homebound (i.e. absences from home require considerable and taxing effort and are for medical reasons or cheondoism services or infrequently or of short duration when for other reasons) because: Certification for Home Health Services: Based on the above findings, I certify that this patient is confined to the home and needs intermittent fdc care, physical therapy and/or speech therapy or continues to need occupational therapy. The patient is under my care, and I have initiated the establishment of the plan of care. This patient will be followed by a physician who will periodically review the plan of care. Total Time Total Time Spent Total Time Spent (In Minutes): 45 Discharge Plan Discharge Items Patient Disposition: Home - Self-Care Reason For Visit: STATUS POST CORE INTERVENTION Discharge Diagnosis: Status postcardiac catheterization Ischemic cardiomyopathy Severe Coronary artery disease Activity: As commented below Non-emergency contact: Primary Care Provider Call non-emergency contact if: you have any medication questions, your symptoms worsen and your temperature is above 101 Follow-up/Referrals: Ruben Gordillo MD [Primary Care Provider] - (Date & Time 06/23/2022 11:20 AM Provider Ruben Gordillo MD [facility] ) Diet: Heart Healthy and Low Sodium (2gm) Addtl Attending Provider Instructions: Follow-up with your primary care physician within a week time and likely you will need labs CBC/CMP/magnesium/phosphorus. Follow-up with your cardiology as an outpatient in 1 to 2 weeks time, you might need outpatient stress testing in a month time. Encourage fluid intake and protein intake. You will likely need outpatient Zio patch monitoring, coordinate with the cardiology office. After you underwent cardiac catheterization, you received 2 stents to your heart artery by the name of " OM". Take your medications as prescribed. Addtl Floor Representative Provider Instructions: ACTIVITY RECOMMENDATIONS: Excess manipulation of the wrist should be avoided for the next 24-48 hours. * No lifting over 2 pounds (approximately a 1/2 gallon of milk) with the utilized arm for 24 hours. * No strenuous activity such as bowling or tennis for 3 days. * Keep the site of the procedure covered with a bandage for 24 hours. *You may shower the day after the procedure. Do not take a tub bath or submerge the puncture site in water for the next 3 days. *Do not operate any motorized equipment for 3 days. SPECIAL CARE INSTRUCTIONS: The site may be slightly bruised and sore following your procedure. Should any of the following occur, contact the Dr. who performed your procedure. 1. Redness/inflammation, swelling, chills, or fever, or colored drainage at procedure site within 3-7 days after your procedure. 2. Coldness, discoloration, ongoing numbness, severe pain, or swelling. Expect mild tingling of hand and tenderness at the puncture site for up to three days. If this persists beyond three days, or other symptoms develop, notify the Dr. who performed your procedure. BLEEDING: If the procedure site on your wrist begins to bleed, do not panic 1. Place 1 or 2 fingers firmly just slightly above the insertion site to stop the bleeding. You may be able to feel your pulse as you hold pressure. 2. Lift your finger after 5 minutes to see if the bleeding has stopped. 3. Once the bleeding has stopped, gently wipe the wrist area clean with a bandage. * If the bleeding from your wrist does not stop after 10 minutes, or if there is a large amount of bleeding or spurting, call 911 (do not drive yourself to the hospital). SKIN IRRITATION: * You may experience some redness and/or swelling in the area where radiation was administered. If any skin irritation occurs, please contact your family physician. FOLLOW UP VISIT: Keep any scheduled doctor appointments. Pending Studies at Discharge: No Stand-Alone Forms: [facility], Smoking Cessation Medications and DC Order Prescriptions: New atorvastatin 40 mg Tablet 40 mg PO DAILY Qty: 30 0RF metoprolol succinate 25 mg tablet extended release 24 hr 25 mg PO DAILY Qty: 30 0RF amlodipine 2.5 mg tablet 2.5 mg PO DAILY Qty: 30 0RF enalapril maleate 10 mg Tablet 20 mg PO DAILY Qty: 60 0RF clopidogrel 75 mg tablet 75 mg PO DAILY Qty: 30 0RF Continued metformin 500 mg Tablet 1,000 mg PO BID pantoprazole 40 mg Tablet,Delayed Release (Dr/Ec) 40 mg PO DAILY gabapentin 300 mg Capsule 300 mg PO TID montelukast 10 mg Tablet 10 mg PO DAILY duloxetine 30 mg Capsule,Delayed Release(Dr/Ec) 30 mg PO DAILY insulin degludec [Tresiba FlexTouch U-100] 100 unit/mL (3 mL) Insulin Pen 10 unit SUBCUT BID Fiber Gummies with Vitamin D3 2,500 mg- 500 unit Tablet,Chewable 1 tab PO DAILY aspirin 81 mg Tablet,Delayed Release (Dr/Ec) 81 mg PO DAILY Qty: 30 0RF Discontinued atorvastatin 20 mg Tablet 20 mg PO DAILY metoprolol succinate 50 mg Tablet Extended Release 24 Hr 50 mg PO DAILY amlodipine-benazepril [Lotrel] 5-20 mg Capsule 1 cap PO DAILY Discharge Orders: Discharge Order (Routine); Ordered 06/17/22 Ordered By: Carol Nielsen Admission Data Admit Date/Time: 06/16/22 12:00 Attending Provider: Andrea Alford Admit Provider: Andrea Alford Primary Care Provider: Ruben Gordillo Other Providers: Stephanie Walker ; Brandy Green I. ; Jonathan Terrazas ; Radha Gunter ; Dahiana Mcdaniel ; Constnace Tapia ; Carly Jones ; Yovanny Lo ; Israel Issa ; Maged Mauricio ; Nadia Damon ; Daron Negron ; Mary Laboy ; Mari Montgomery ; Jose Dietrich ; Nancy Weinberg ; Willa Mccloud ; Zoya Reddy ; Barby Christy I. ; Po Verma ; Max Grier ; Carol Nielsen ; Ishan Ocampo ; Freeman Townsend ; Erwin Colindres ; Juan Carlos Purvis ; Duran Soto ; Jessica Jauregui ; Andrea Alford
== END 2022-06-17 14:35 | disposition home or self-care (01) ==
LOC: CC 08:06 → 2E 08:06

== ENCOUNTER 2022-12-28 10:10 | Inpatient (IN) ==
[2022-12-28 12:35] LABS: Basophils # (auto) 0.17 K/uL (0-0.2); Eosinophils # (auto) 0.91 K/uL (0-0.50); Eosinophils % (auto) 5.6 %; Hematocrit (blood only) 39.3 % (42.0-52.0); Hemoglobin 13.3 g/dl (14.0-18.0); Immature Granulocytes # (auto) 0.14 K/uL (0.01-0.20); Immature Granulocytes % (auto) 0.9 %; Lymphocytes % (auto) 27.5 %; Mean Corpuscular Hemoglobin 28.7 pg (25.0-34.0); Mean Corpuscular Hgb Conc 33.8 g/dL (32.0-36.0); Mean Corpuscular Volume 84.7 fL (80.0-100.0); Monocytes # (auto) 1.42 K/uL (0.11-0.59); Monocytes % (auto) 8.7 %; Neutrophils % (auto) 56.3 %; Platelet Count 370 K/uL (130-400); RDW Coefficient of Variation 13.4 % (11.5-14.5); RDW Standard Deviation 41.3 fL (36.4-46.3); Red Blood Count 4.64 M/uL (4.70-6.10); White Blood Count 16.34 K/ul (4.8-10.8)
[2022-12-28 12:50] LABS: Alanine Aminotransferase 12 U/L (7-52); Albumin Globulin Ratio 1.4 (0.9-2); Albumin Level 4.1 gm/dl (3.4-5.0); Alkaline Phosphatase 119 U/L (34-104); Anion Gap 9 (3-11); Aspartate Aminotransferase 11 U/L (13-39); BUN Creatinine Ratio 22.1 (10-20); Bilirubin,Total 1.3 mg/dl (0.2-1.0); Blood Urea Nitrogen 19 mg/dl (6-23); Calcium 9.7 mg/dl (8.6-10.3); Carbon Dioxide 27 mmol/L (21-32); Chloride 102 mmol/L (98-107); Est GFR (African American) 120.5 ml/min; Glucose 140 mg/dl (70-99(Fasting)); Potassium 4.2 mmol/L (3.5-5.1); Sodium 138 mmol/L (136-145); Total Protein 7.1 gm/dl (6.0-8.3)
--- NOTE | 2022-12-28 13:29 | XRay Report ---
XR lumbar spine min 4V routine CLINICAL HISTORY: Fall. Low back pain. COMPARISON STUDY: Lumbar spine 02/02/2017. FINDINGS: Minimal anterior wedging at T12 and L1 remains unchanged. This is likely chronic. No acute fracture or subluxation within the lumbar spine. Disc spaces are preserved. Moderate to severe facet degenerative changes again noted within the lower lumbar spine. This remains unchanged. The visualize d sacrum is intact. Increased density overlying the right sacroiliac joint is likely due to the overl jorge bowel. IMPRESSION: No acute fracture or subluxation within the lumbar spine. ACT 112: Negative or not required by law. Electronically signed by: Quinton Cooper M.D. 12/28/2022 1:28 PM
--- NOTE | 2022-12-28 13:49 | XRay Report ---
XR hip LT 2V w pelvis CLINICAL HISTORY: Fall, hip pain COMPARISON: CT of the abdomen and pelvis February 15, 2018. FINDINGS: Sacroiliac joints and symphysis pubis are intact. The left femoral neck is foreshortened. There is a band of sclerosis within the left femoral neck. This is new since CT of February 15, 2018 . This suggests an impacted left femoral subcapital fracture. There is moderate bilateral hip osteoar thritis. No additional fractures are present. IMPRESSION: 1. Impacted left femoral subcapital fracture. This fracture may be subacute given sclerosis. A CT of the left hip could be obtained for confirmation. 2. Moderate bilateral hip osteoarthritis. ACT 112: Negative or not required by law. Electronically signed by: German Hood M.D. 12/28/2022 1:47 PM
[2022-12-28] MEDS ORDERED: ALUMINUM/MAGNESIUM SUSP 30 ML UDC PO PRN (14:09)
[2022-12-28] MEDS ORDERED: MAGNESIUM HYDROXIDE SUSP 30 ML UDC PO PRN ×2 (14:09→14:40)
[2022-12-28] MEDS ORDERED: POLYETHYLENE (MIRALAX) 17 GM PACK PO PRN (14:09)
[2022-12-28] MEDS ORDERED: ONDANSETRON INJ 2 MG/ML 2 ML VIAL IV PRN (14:09)
--- NOTE | 2022-12-28 14:15 | History & Physical Report ---
Date of Service December 28, 2022 Assessment & Plan (1) Closed left femoral fracture: (2) Type 2 diabetes mellitus with diabetic neuropathy, unspecified: (3) Hypertension: (4) Hyperlipidemia: (5) CAD (coronary artery disease): (6) Systolic congestive heart failure: (7) Mood disorder: Plan Mr. Moctezuma is a 47 year old male that presents to the ED today for uncontrolled pain in his left hip. He was walking to the kitchen two weeks ago when he fell and blacked out. He did not hit his head. His mother got him a wheelchair and he has been sedentary for the past few weeks but the pain became unbearable. Head CT negative; Hip pelvis X-ray indicates left femoral subcapital fracture. He had a recent admission in June where he had a scheduled cardiac catheterization by Dr. Rojas with 2 POLY and is now on Plavix. hip/pelvis x-ray did indicate to obtain a hip CT to further evaluate the fracture; results indicate: Impacted nondisplaced left femoral subcapital fracture. This fracture is subacute to acute. Ortho consult with pain control Close left femoral fracture: Hip pelvis X-ray indicates left femoral subcapital fracture Hip CT: Impacted nondisplaced left femoral subcapital fracture. This fracture is subacute to acute. Ortho Consult for evaluation Pain control with Tramadol Will hold Plavix until eval by Ortho today Type II by diabetes mellitus with diabetic neuropathy: Takes Jardiance and Metformin; hold while inpt Last A1C 05/28: 7.5; recheck while here FSBS ACHS SSI HTN: Takes amlodipine, enalapril, metoprolol; continue Did not take any antihypertensives this morning BP at home 160/90-100 HLD: Takes atorvastatin; continue CAD: Systolic HFrEF: Echo May 2022 showing mild global hypokinesis with an EF of 45% Takes ASA; continue Mood disorder: Challenges with MED and bipolar disorder Takes Cymbalta; continue Disposition: PCP:Dr. Gordillo CODE STATUS: Full code VTE prophylaxis: Sc Heparin- hold after midnight for possible procedure tomorrow. I spent a total of 88 minutes coordinating, documenting, and providing care for this patient excluding time spent in the performance of separately billed services. All of the aforementioned completed while collaborating with the assigned attending physician for a full treatment plan. Please see their addendum for further details. History of Present Illness Chief Complaint: Fall Primary Care Provider: Ruben Gordillo MD Mr. Moctezuma is a 47 year old male that presents to the ED today for uncontrolled pain in his left hip. He was walking to the kitchen two weeks ago when he fell and blacked out. He did not hit his head. His mother got him a wheelchair and he has been sedentary for the past few weeks but the pain became unbearable. Head CT negative; Hip pelvis X-ray indicates left femoral subcapital fracture. He had a recent admission in June where he had a scheduled cardiac catheterization by Dr. Rojas with 2 POLY and is now on Plavix. hip/pelvis x-ray did indicate to obtain a hip CT to further evaluate the fracture; results indicate: Impacted nondisplaced left femoral subcapital fracture. This fracture is subacute to acute. PMH of hypertension, type 2 diabetes, dyslipidemia, HFrEF, mood disorder, history of noncompliance. Some leukocytosis noted WBC 16.34; otherwise labs unremarkable. HTN in ED; did not take his AM medications. Pt will be admitted for further evaluation and management. Please see A/P for further details. Allergies Allergy/AdvReac Type Severity Reaction Status Date / Time adhesive Allergy Intermediate Contact Verified 12/28/22 08:48 dermatitis latex Allergy Mild RASH Verified 12/28/22 08:48 tramadol Allergy Unknown n/v Verified 12/28/22 08:48 Home Medications Medication Instructions Recorded Confirmed Type duloxetine 30 mg capsule,delayed 30 mg PO DAILY 06/16/22 12/28/22 History release gabapentin 300 mg capsule 300 mg PO TID 06/16/22 12/28/22 History inulin 2,500 mg-vitamin D3 500 1 tab PO DAILY 06/16/22 12/28/22 History unit chewable tablet (Fiber Gummies with Vitamin D3) metformin 500 mg tablet 1,000 mg PO BID 06/16/22 12/28/22 History montelukast 10 mg tablet 10 mg PO DAILY 06/16/22 12/28/22 History pantoprazole 40 mg tablet,delayed 40 mg PO DAILY 06/16/22 12/28/22 History release amlodipine 2.5 mg tablet 2.5 mg PO DAILY #30 tabs 06/17/22 12/28/22 Rx aspirin 81 mg tablet,delayed 81 mg PO DAILY #30 tabs 06/17/22 12/28/22 Rx release atorvastatin 40 mg tablet 40 mg PO DAILY #30 tabs 06/17/22 12/28/22 Rx clopidogrel 75 mg tablet 75 mg PO DAILY #30 tabs 06/17/22 12/28/22 Rx enalapril maleate 10 mg tablet 20 mg PO DAILY #60 tabs 06/17/22 12/28/22 Rx metoprolol succinate 25 mg 25 mg PO DAILY #30 tabs 06/17/22 12/28/22 Rx tablet,extended release 24 hr empagliflozin 25 mg tablet 25 mg PO DAILY 11/23/22 12/28/22 History (Jardiance) Past Med/Surg History Medical History Bipolar 1 disorder, depressed Central retinal artery occlusion, left eye Closed left femoral fracture Diabetic peripheral neuropathy Hyperlipidemia Hypertension Ischemic cardiomyopathy Mood disorder Noncompliance Systolic congestive heart failure Type 2 diabetes mellitus Surgical History History of dental surgery S/P arthroscopic knee surgery Family History Other Cancer Diabetes Hypertension Social History Smoking Status: Never smoker Hx Alcohol Use: No Hx Substance Use: No Preferred Language: Spanish Communication Ability: Effective Current Living Situation: Family Feels Safe at Home: Yes Assistive Devices: Cane Review of Systems Review of Systems: Neuro: (-) Falls, trauma, slurred speech HEENT: (-) SMART, dizziness, dysphagia, visual or auditory changes CV: (-) CP, palpitations, swelling Resp: (-) SOB GI: (-) appetite changes, N/V/D, bowel changes : (-) urinary changes Skin: (-) rashes Psych: (-) anxiety, depression Physical Exam Physical Exam: Neuro: AAOx4, PERRLA, no aphagia, memory changes, CNII-XII grossly intact HEENT: head normocephalic, moist mucus membranes CV: S1/S2, (-) M/G/R, (-) edema, cap refill < 3 seconds Resp: Lungs CTA in all choi. On RA GI: Abdomen S/NT/ND, Ax4 bowel sounds, (-) CVA tenderness Musculoskeletal: 5/5 B/L UE strength, 5/5 B/L LE strength. No gait disturbance Skin: (-) rashes , (-) erythema. Psych: euthymic mood Results & Data Results & Data Vital Signs (Past 12 Hours) Vital Signs Temp Pulse Pulse Resp BP BP Pulse Ox 12/28/22 14:09 93 H 18 165/111 H 96 12/28/22 11:55 88 18 158/105 H 98 12/28/22 10:14 36.8 C 100 H 20 104/79 97 O2 Del Method 12/28/22 14:09 Room Air 12/28/22 11:55 12/28/22 10:14 Room Air Laboratory Results Short CBC 12/28/22 Range/Units 11:51 WBC 16.34 H (4.8-10.8) K/ul Hgb 13.3 L (14.0-18.0) g/dl Hct 39.3 L (42.0-52.0) % Plt Count 370 (130-400) K/uL BMP 12/28/22 11:51 Sodium 138 Potassium 4.2 Chloride 102 Carbon Dioxide 27 BUN 19 Creatinine 0.86 Glucose 140 H Calcium 9.7 Liver Function 12/28/22 Range/Units 11:51 Total Bilirubin 1.3 H (0.2-1.0) mg/dl AST 11 L (13-39) U/L ALT 12 (7-52) U/L Alkaline Phosphatase 119 H (34-104) U/L Albumin 4.1 (3.4-5.0) gm/dl Diagnostic Findings Hip/Pelvis X-Ray 12/28/22 11:08 XR hip LT 2V w pelvis CLINICAL HISTORY: Fall, hip pain COMPARISON: CT of the abdomen and pelvis February 15, 2018. FINDINGS: Sacroiliac joints and symphysis pubis are intact. The left femoral neck is foreshortened. There is a band of sclerosis within the left femoral neck. This is new since CT of February 15, 2018. This suggests an impacted left femoral subcapital fracture. There is moderate bilateral hip osteoarthritis. No additional fractures are present. IMPRESSION: 1. Impacted left femoral subcapital fracture. This fracture may be subacute given sclerosis. A CT of the left hip could be obtained for confirmation. 2. Moderate bilateral hip osteoarthritis. ACT 112: Negative or not required by law. Electronically signed by: German Hood M.D. 12/28/2022 1:47 PM Lumbar Spine X-Ray 12/28/22 11:08 XR lumbar spine min 4V routine CLINICAL HISTORY: Fall. Low back pain. COMPARISON STUDY: Lumbar spine 02/02/2017. FINDINGS: Minimal anterior wedging at T12 and L1 remains unchanged. This is likely chronic. No acute fracture or subluxation within the lumbar spine. Disc spaces are preserved. Moderate to severe facet degenerative changes again noted within the lower lumbar spine. This remains unchanged. The visualized sacrum is intact. Increased density overlying the right sacroiliac joint is likely due to the overlying bowel. IMPRESSION: No acute fracture or subluxation within the lumbar spine. ACT 112: Negative or not required by law. Electronically signed by: Quinton Cooper M.D. 12/28/2022 1:28 PM Code Status & VTE Plan Code Status Full Code in the event of cardiac or respiratory arrest VTE Prophylaxis Plan VTE Prophylaxis will be ordered: Yes Supervising Physician Co-Signing Physician Notes Patient was seen and examined independently at bedside. Chart reviewed. Case discussed with Brandy CUMMINS and agree with the documentation above. In summary, this is a 47 year old male who presented to the ED today for evaluation of left hip pain. He fell down two weeks ago and has been using crutches since. He states he was seen by ortho couple days after the fall for steroid injection of his knees but the hip did not bother him and he did not mention about the hip. He was at the wound care clinic today and they recommended his left hip evaluation for which he came to the ED. He takes aleve 1-2 times a day for the past 2 weeks for the hip pain. He states his BP was low due to dehydration and poor oral intake prompting the fall. He had fallx2, the last one was witnessed by his mom. No seizure like activities. No chest pain, palpitations, SOB, N/V. Denies drinking alcohol recently- last drink was 6 months ago. Quit smoking many years back. Uses marijuana once weekly but denies any other drug use. On exam, vitals stable. AAO. Lying comfortably in bed, not in acute distress, chest clear, heart sounds normal,abd benign, no ecchymoses noted. Imaging show non displaced subcapital left hip fracture. Agree with tele monitoring, bed rest, analgesics, ortho eval. Agree with holding plavix and continuing aspirin (he is 6 months out of his stent in June). NPO after midnight.Rest as per the note above.
[2022-12-28] MEDS ORDERED: NALOXONE HCL 0.4 MG/1 ML VIAL/CARP IV PRN (14:40)
[2022-12-28] MEDS ORDERED: bisacodyL 10 MG SUPP PR PRN (14:40)
--- NOTE | 2022-12-28 14:52 | Electrocardiogram Report ---
Test Reason : Blood Pressure : / mmHG Vent. Rate : 093 BPM Atrial Rate : 093 BPM P-R Int : 164 ms QRS Dur : 092 ms QT Int : 346 ms P-R-T Axes : 030 000 046 degrees QTc Int : 430 ms Normal sinus rhythm Normal ECG When compared with ECG of 16-JUN-2022 11:50, No significant change was found Confirmed by Yosi Flores ([id number]) on 12/28/2022 2:51:39 PM Referred By: REFERRED SELF Confirmed By:Yosi Flores
--- NOTE | 2022-12-28 16:13 | CT Scan Report ---
LEFT HIP CT WITHOUT CONTRAST CLINICAL HISTORY: Left femoral fracture. COMPARISON STUDY: Pelvis and left hip radiographs performed earlier today. TECHNIQUE: Axial images of the left hip were obtained without IV contrast. Sagittal and coronal recon structions were viewed. Automated exposure control was utilized for the study. A dose lowering techn ique was utilized adhering to the principles of ALARA. FINDINGS: The bladder is moderately distended. There is fluid within the left iliopsoas bursa. Note i s made of an impacted nondisplaced left femoral subcapital fracture. The fracture margins are sclerot ic. No additional fractures are identified on this exam. There is moderate left hip osteoarthritis. T here is no left inguinal lymphadenopathy. IMPRESSION: 1. Impacted nondisplaced left femoral subcapital fracture. This fracture is subacute to acute. 2. Moderate left hip osteoarthritis. ACT 112: Negative or not required by law. Electronically signed by: German Hood M.D. 12/28/2022 4:12 PM
[2022-12-28] MEDS ORDERED: CARBOHYDRATES FOR HYPOGLYCEMIA PO PRN (16:34)
[2022-12-28] MEDS ORDERED: GLUCAGON FOR INJ 1 MG VIAL SQ PRN (16:34)
[2022-12-28] MEDS ORDERED: PHARMACY GLYCEMIC MGMT CONSULT PRN (16:34)
[2022-12-28] MEDS ORDERED: GLUCOSE 10 TAB/TUBE PO PRN (16:34)
[2022-12-28] MEDS ORDERED: GLUCOSE 40% GEL 15 GM TUBE PO PRN (16:34)
[2022-12-28] MEDS ORDERED: DEXTROSE 50% 50 ML SYRINGE IV PRN (16:34)
[2022-12-28] MEDS: METOPROLOL SUCC 25MG EXT REL TAB PO SCH (17:16)
[2022-12-28] MEDS: ENALAPRIL MALEATE 10 MG TAB PO SCH (17:16)
[2022-12-28] MEDS: INSULIN ASPART PER UNIT CHARGE SC SCH ×2 (17:17→21:06)
--- NOTE | 2022-12-28 18:26 | Pharmacy Report ---
Pharmacy Glycemic Short Note 2 - Date of Service December 28, 2022 - Glycemic Short BSG Results (Last 24 hours): 12/28/22 12/28/22 11:51 17:10 Glucose 140 H POC Glucose 125 H OUTPATIENT ANTIDIABETIC REGIMEN: * Metformin 1000 mg PO BID * Jardiance 25 mg PO AM * HbA1c pending ASSESSMENT: * 47 yo M admitted on 12/28/22 secondary to left hip pain and found to have subacute to acute fracture. Pharmacy has been consulted to assist with inpatient glycemic management. Patient is a controlled Type 2 diabetic as an outpatient. Please refer to outpatient regimen and most recent HbA1c above. * BSG in the ED was 140 mg/dL. Upon transfer to the floor, BSG was was 125 mg/dL. Confirmed with floor RN that patient was going to eat dinner. * For now, will order bolus insulin only based on weight/stress of 2. Hold off on basal insulin. Possibility that patient goes NPO after midnight for surgery tomorrow. PLAN FOR INPATIENT GLYCEMIC CONTROL: * Hold outpatient oral diabetes medications * Basal insulin * Hold * Bolus insulin * NovoLog per scale ACHS or Q6hrs while NPO * Goal Range: Low 110 mg/dL - High 140 mg/dL * Correction Factor: 30 mg/dL/unit * Nutritional / Prandial insulin per carb ratio of 1 unit per 10 grams CHO consumed
--- NOTE | 2022-12-28 19:20 | Emergency Department Note ---
Impression & Plan Fracture of femoral neck, left, closed ED Provider Note CHIEF COMPLAINT: Left hip pain HISTORY OF PRESENT ILLNESS: This 47-year-old male patient , bipolar disorder, CHF, ischemic cardiomyopathy, hyperlipidemia, hypertension, diabetes past medical history of CAD presents to the emergency department with complaints of left hip pain. He states 2 weeks ago his "blood pressure dropped" and he fell x2. He did fall onto a hardwood floor. His mother was able to come help him up and "clean up the mess." Patient has been experiencing left hip pain since this time. He has been using a wheelchair around his apartment. He presented to the wound care clinic today due to diabetic foot ulcer and was advised to come to the emergency department for evaluation as he had not yet had x-rays. The left hip is mostly painful when bearing weight. Patient did experience some vomiting several days ago which resolved in 24 hours. He denies hitting his head but does take Plavix and aspirin. REVIEW OF SYSTEMS: A review of systems was performed with positives and pertinent negatives listed in the history of present illness. 10 systems were reviewed and are otherwise negative. ALLERGIES: see below MEDICATIONS: see below PMH: see below SOCIAL HISTORY: see below DDx: Fracture, subluxation, dislocation, contusion, ligamentous injury, neurovascular, compartment syndrome, rhabdomyolysis, as well as other pathologies. PHYSICAL EXAM: Vital signs reviewed. General: Chronically ill-appearing 47-year-old male, in no significant distress. HEENT: No scleral icterus, PERRLA, neck supple. Atraumatic. Cardiovascular: Regular rate and rhythm, no extra sounds. Pulmonary: Clear to auscultation bilaterally, normal work of breathing. Abdomen: Soft, nontender, nondistended, positive bowel sounds. Musculoskeletal: Atraumatic, no peripheral edema. Pain to palpation of the left hip and proximal femur. Pain with straight leg raise. Neurovascularly intact distally. Neurologic: Patient awake alert and oriented x 3, speech is clear Skin: Warm, dry, no rash. Multiple tattoos to the bilateral upper extremities/hands. EMERGENCY DEPARTMENT COURSE/MDM: This patient was evaluated and appeared to be in no significant distress. IV access was obtained and laboratory work was drawn. External medical records were reviewed. The patient was placed on the acupressure therapist noted to be in a normal sinus rhythm. Patient was hydrated with normal saline solution. Analgesics were not required at the time of my evaluation as the patient was resting and did not have significant pain. X-ray of the left hip and LS-spine were performed, revealing a left impacted femoral neck fracture. Case was discussed with the hospitalist service who will evaluate the patient for admission, orthopedic consultation and further management. Patient is aware of the plan and agrees. RADIOLOGY: X-ray of the left hip to my interpretation reveals an impacted left femoral neck fracture. Otherwise defer to radiology. Lumbar spine x-rays to my interpretation reveal no evidence of acute fracture or malalignment. Otherwise defer to radiology. EKG: To my interpretation reveals a normal sinus rhythm at 93 bpm. QTc is 430. No PVC, no PAC. No significant change was found from previous dated June 16, 2022. DISPOSITION: Admission Past Med/Surg History Medical History Bipolar 1 disorder, depressed Central retinal artery occlusion, left eye Closed left femoral fracture Diabetic peripheral neuropathy Hyperlipidemia Hypertension Ischemic cardiomyopathy Mood disorder Noncompliance Systolic congestive heart failure Type 2 diabetes mellitus Surgical History History of dental surgery S/P arthroscopic knee surgery Family History Other Cancer Diabetes Hypertension Social History Smoking Status: Never smoker Hx Alcohol Use: No Hx Substance Use: No Preferred Language: Amharic Communication Ability: Effective Current Living Situation: Family Feels Safe at Home: Yes Assistive Devices: Crutches Allergies Allergies Allergy/AdvReac Type Severity Reaction Status Date / Time adhesive Allergy Intermediate Contact Verified 12/28/22 08:48 dermatitis latex Allergy Mild RASH Verified 12/28/22 08:48 tramadol Allergy Unknown n/v Verified 12/28/22 08:48 Home Meds Home Medications Medication Instructions Recorded Confirmed duloxetine 30 mg capsule,delayed 30 mg PO DAILY 06/16/22 12/28/22 release gabapentin 300 mg capsule 300 mg PO TID 06/16/22 12/28/22 inulin 2,500 mg-vitamin D3 500 1 tab PO DAILY 06/16/22 12/28/22 unit chewable tablet (Fiber Gummies with Vitamin D3) metformin 500 mg tablet 1,000 mg PO BID 06/16/22 12/28/22 montelukast 10 mg tablet 10 mg PO DAILY 06/16/22 12/28/22 pantoprazole 40 mg tablet,delayed 40 mg PO DAILY 06/16/22 12/28/22 release empagliflozin 25 mg tablet 25 mg PO DAILY 11/23/22 12/28/22 (Jardiance) Previous Rx's Medication Instructions Recorded amlodipine 2.5 mg tablet 2.5 mg PO DAILY #30 tabs 06/17/22 aspirin 81 mg tablet,delayed 81 mg PO DAILY #30 tabs 06/17/22 release atorvastatin 40 mg tablet 40 mg PO DAILY #30 tabs 06/17/22 clopidogrel 75 mg tablet 75 mg PO DAILY #30 tabs 06/17/22 enalapril maleate 10 mg tablet 20 mg PO DAILY #60 tabs 06/17/22 metoprolol succinate 25 mg 25 mg PO DAILY #30 tabs 06/17/22 tablet,extended release 24 hr Results & Data (ED) Vital Signs Vital Signs - 24 hr 12/28/22 10:14 12/28/22 11:55 Temperature 36.8 C Temperature Source Temporal Artery Scan Pulse Rate 100 H Pulse Rate [Right Finger] 88 Respiratory Rate 20 18 Respiratory Effort / Characteristics Non-Labored Spontaneous Respiratory Depth Normal Blood Pressure 104/79 Blood Pressure [Right Arm] 158/105 H Blood Pressure Mean 87 Blood Pressure Mean [Right Arm] 122 Pulse Oximetry 97 98 Oxygen Delivery Method Room Air Sepsis Recent Fever Within 48 Hours No Sepsis New/Unexplained Change in Mental Status No Sepsis Action Taken by Nursing No Action Required Home Medications Current Medication List: was personally reviewed by me Laboratory Data Attestation: I reviewed the patient's lab results. 12/28/22 11:51 12/28/22 11:51 Lab Results 12/28/22 12/28/22 12/28/22 Range/Units 11:51 11:51 14:00 WBC 16.34 H (4.8-10.8) K/ul RBC 4.64 L (4.70-6.10) M/uL Hgb 13.3 L (14.0-18.0) g/dl Hct 39.3 L (42.0-52.0) % MCV 84.7 (80.0-100.0) fL MCH 28.7 (25.0-34.0) pg MCHC 33.8 (32.0-36.0) g/dL RDW Std Deviation 41.3 (36.4-46.3) fL RDW Coeff of Pancho 13.4 (11.5-14.5) % Plt Count 370 (130-400) K/uL MPV 11.0 (9.4-12.4) fL Immature Gran % (Auto) 0.9 % Neut % (Auto) 56.3 % Lymph % (Auto) 27.5 % Benson % (Auto) 8.7 % Eos % (Auto) 5.6 % Baso % (Auto) 1.0 % Neut # (Auto) 9.20 H (1.40-6.50) K/uL Lymph # (Auto) 4.50 H (1.2-3.4) K/uL Benson # (Auto) 1.42 H (0.11-0.59) K/uL Eos # (Auto) 0.91 H (0-0.50) K/uL Baso # (Auto) 0.17 (0-0.2) K/uL Immature Gran # (Auto) 0.14 (0.01-0.20) K/uL Sodium 138 (136-145) mmol/L Potassium 4.2 (3.5-5.1) mmol/L Chloride 102 (98-107) mmol/L Carbon Dioxide 27 (21-32) mmol/L Anion Gap 9 (3-11) BUN 19 (6-23) mg/dl Creatinine 0.86 (0.6-1.4) mg/dl Est Cr Clr Drug Dosing Not Reportable Est GFR ( Amer) 120.5 ml/min Est GFR (Non-Af Amer) 104.0 ml/min BUN/Creatinine Ratio 22.1 H (10-20) Glucose 140 H (70-99(Fasting)) mg/dl Calcium 9.7 (8.6-10.3) mg/dl Total Bilirubin 1.3 H (0.2-1.0) mg/dl AST 11 L (13-39) U/L ALT 12 (7-52) U/L Alkaline Phosphatase 119 H (34-104) U/L Total Protein 7.1 (6.0-8.3) gm/dl Albumin 4.1 (3.4-5.0) gm/dl Globulin 3.0 (2.5-4.0) gm/dl Albumin/Globulin Ratio 1.4 (0.9-2) SARS-CoV-2, RNA, NAAT NEGATIVE (NEGATIVE) Administered Medications Acetaminophen (Acetaminophen 325 Mg Tab) 650 mg PO Q4H PRN PRN Reason: Pain or Fever Stop: 01/27/23 14:08 Last Admin: 12/28/22 21:07 Dose: 650 mg Documented By: TNK Amlodipine Besylate (Amlodipine Besylate 5 Mg Tab) 2.5 mg PO DAILY [facility] Stop: 01/28/23 08:59 Last Admin: 12/29/22 08:30 Dose: 2.5 mg Documented By: [id number] Aspirin (Aspirin 81 Mg Ectab) 81 mg PO DAILY [facility] Stop: 01/28/23 08:59 Last Admin: 12/29/22 08:30 Dose: 81 mg Documented By: [id number] Atorvastatin Calcium (Atorvastatin 40 Mg Tab) 40 mg PO DAILY [facility] Stop: 01/28/23 08:59 Last Admin: 12/29/22 08:30 Dose: 40 mg Documented By: [id number] Duloxetine HCl (Duloxetine Hcl 30 Mg Cap) 30 mg PO DAILY [facility] Stop: 01/28/23 08:59 Last Admin: 12/29/22 08:30 Dose: 30 mg Documented By: [id number] Enalapril Maleate (Enalapril Maleate 10 Mg Tab) 20 mg PO DAILY [facility] Stop: 01/27/23 16:14 Last Admin: 12/29/22 08:30 Dose: 20 mg Documented By: [id number] Admin: 12/28/22 17:16 Dose: 20 mg Documented By: WILL Gabapentin (Gabapentin 300 Mg Cap) 300 mg PO TID [facility] Stop: 01/27/23 20:59 Last Admin: 12/29/22 08:29 Dose: 300 mg Documented By: [id number] Admin: 12/28/22 21:08 Dose: 300 mg Documented By: TNK Insulin Aspart (Insulin Aspart Per Unit Charge) [address] [facility]; Protocol Stop: 01/27/23 16:59 Last Admin: 12/29/22 12:07 Dose: Not Given Documented By: [id number] Admin: 12/29/22 08:27 Dose: Not Given Documented By: [id number] Admin: 12/28/22 21:06 Dose: 2 units Documented By: SARAH Co-signed By: ADOLFO Admin: 12/28/22 17:17 Dose: Not Given Documented By: WILL Co-signed By: MORENITA Metoprolol Succinate (Metoprolol Succ 25mg Ext Rel Tab) 25 mg PO DAILY MAE Stop: 01/27/23 16:14 Last Admin: 12/29/22 08:30 Dose: 25 mg Documented By: [id number] Admin: 12/28/22 17:16 Dose: 25 mg Documented By: WILL Montelukast Sodium (Montelukast Sodium 10 Mg Tablet) 10 mg PO DAILY MAE Stop: 01/28/23 08:59 Last Admin: 12/29/22 08:30 Dose: 10 mg Documented By: [id number] Morphine Sulfate (Morphine Sulfate 2 Mg/Ml Carp) 2 mg IV Q4H PRN PRN Reason: Pain Stop: 01/11/23 21:20 Last Admin: 12/29/22 11:59 Dose: 2 mg Documented By: [id number] Pantoprazole Sodium (Pantoprazole 40 Mg Tab) 40 mg PO DAILY MAE Stop: 01/28/23 08:59 Last Admin: 12/29/22 08:30 Dose: 40 mg Documented By: [id number] Senna/Docusate Sodium (Docusate Sodium/Senna 50/8.6mg Tab) 2 tab PO HS MAE Stop: 01/27/23 20:59 Last Admin: 12/28/22 21:08 Dose: 2 tab Documented By: SARAH Discontinued Medications Heparin Sodium (Porcine) (Heparin Sod 5,000 Unit/0.5 Ml Vial) 5,000 units SQ Q8 MAE Stop: 12/29/22 00:01 Last Admin: 12/28/22 21:08 Dose: 5,000 units Documented By: SARAH Morphine Sulfate (Morphine Sulfate 2 Mg/Ml Carp) 1 mg IV Q6H PRN PRN Reason: Pain Stop: 01/11/23 21:20 Last Admin: 12/29/22 08:38 Dose: 1 mg Documented By: [id number] Admin: 12/28/22 23:32 Dose: 1 mg Documented By: SARAH Morphine Sulfate (Morphine Sulfate 2 Mg/Ml Carp) 2 mg IV NOW STA Stop: 12/29/22 03:59 Last Admin: 12/29/22 04:03 Dose: 2 mg Documented By: TNK Imaging Data Radiologist's Impression: Hip/Pelvis X-Ray 12/28/22 11:08 XR hip LT 2V w pelvis CLINICAL HISTORY: Fall, hip pain COMPARISON: CT of the abdomen and pelvis February 15, 2018. FINDINGS: Sacroiliac joints and symphysis pubis are intact. The left femoral neck is foreshortened. There is a band of sclerosis within the left femoral neck. This is new since CT of February 15, 2018. This suggests an impacted left femoral subcapital fracture. There is moderate bilateral hip osteoarthritis. No additional fractures are present. IMPRESSION: 1. Impacted left femoral subcapital fracture. This fracture may be subacute given sclerosis. A CT of the left hip could be obtained for confirmation. 2. Moderate bilateral hip osteoarthritis. ACT 112: Negative or not required by law. Electronically signed by: German Hood M.D. 12/28/2022 1:47 PM Lumbar Spine X-Ray 12/28/22 11:08 XR lumbar spine min 4V routine CLINICAL HISTORY: Fall. Low back pain. COMPARISON STUDY: Lumbar spine 02/02/2017. FINDINGS: Minimal anterior wedging at T12 and L1 remains unchanged. This is likely chronic. No acute fracture or subluxation within the lumbar spine. Disc spaces are preserved. Moderate to severe facet degenerative changes again noted within the lower lumbar spine. This remains unchanged. The visualized sacrum is intact. Increased density overlying the right sacroiliac joint is likely due to the overlying bowel. IMPRESSION: No acute fracture or subluxation within the lumbar spine. ACT 112: Negative or not required by law. Electronically signed by: Quinton Cooper M.D. 12/28/2022 1:28 PM Discharge Plan Visit Data Chief Complaint: Leg Injury/Pain Stated Complaint: LT LEG PAIN ED Provider: Sharita Leonard Discharge Problem: Fracture of femoral neck, left, closed Patient Disposition: Admitted As Inpatient Discharge Instructions Interventions: ED Discharge Assessment Last Done: 12/28/22 15:53
[2022-12-28] MEDS ORDERED: LANTUS PER UNIT CHARGE SQ SCH (21:00)
[2022-12-28] MEDS: ACETAMINOPHEN 325 MG TAB PO PRN (21:07)
[2022-12-28] MEDS: DOCUSATE SODIUM/SENNA 50/8.6MG TAB PO SCH (21:08)
[2022-12-28] MEDS: GABAPENTIN 300 MG CAP PO SCH (21:08)
[2022-12-28] MEDS ORDERED: HEPARIN SOD 5,000 UNIT/0.5 ML VIAL SQ SCH (22:00)
[2022-12-28] MEDS: MoRPHine SULFATE 2 MG/ML CARP IV PRN (23:32)
[2022-12-29] MEDS ORDERED: MoRPHine SULFATE 2 MG/ML CARP IV STA (03:58)
[2022-12-29] MEDS ORDERED: TRANEXAMIC ACID / 0.7% NACL 1,000 MG/100 ML BAG IV SCH ×2 (06:00→06:30)
--- NOTE | 2022-12-29 07:20 | Hospitalist Progress Note ---
Date of Service December 29, 2022 Assessment & Plan (1) Closed left femoral fracture: (2) Type 2 diabetes mellitus with diabetic neuropathy, unspecified: (3) Hypertension: (4) Hyperlipidemia: (5) CAD (coronary artery disease): (6) Systolic congestive heart failure: (7) Mood disorder: Plan Mr. Moctezuma is a 47 year old male that presents to the ED today for uncontrolled pain in his left hip. He was walking to the kitchen two weeks ago when he fell and blacked out. He did not hit his head. His mother got him a wheelchair and he has been sedentary for the past few weeks but the pain became unbearable. Head CT negative; Hip pelvis X-ray indicates left femoral subcapital fracture. He had a recent admission in June where he had a scheduled cardiac catheterization by Dr. Rojas with 2 POLY and is now on Plavix. hip/pelvis x-ray did indicate to obtain a hip CT to further evaluate the fracture; results indicate: Impacted nondisplaced left femoral subcapital fracture. This fracture is subacute to acute. Ortho consult with pain control Close left femoral fracture: Hip pelvis X-ray indicates left femoral subcapital fracture Hip CT: Impacted nondisplaced left femoral subcapital fracture. This fracture is subacute to acute. Ortho Consult for evaluation Pain control with morphine Will hold Plavix until eval by Ortho Per orthopedics - plan for ORIF of the left subcapital femur fx with the Synthes femoral neck system tmrw 12/30/22 NPO after MN His Plavix is currently being held but he is still on aspirin. Medicine and potentially cardiology input on anticoagulation from cardiac stents done in June appreciated. Type II by diabetes mellitus with diabetic neuropathy: Takes Jardiance and Metformin; hold while inpt Last A1C 05/28: 7.5; recheck while here FSBS ACHS SSI HTN: Takes amlodipine, enalapril, metoprolol; continue monitor BP HLD: Takes atorvastatin; continue CAD: Systolic HFrEF: POLY x2 in June on ASA and plavix, now plavix held (he is 6 months out of his stent in June) Echo May 2022 showing mild global hypokinesis with an EF of 45% Pt had 2 falls / pre-syncopal episodes - will check echo pre-op Mood disorder: Challenges with MED and bipolar disorder Takes Cymbalta; continue Disposition: PCP:Dr. Gordillo CODE STATUS: Full code VTE prophylaxis: Sc Heparin- hold after midnight for possible procedure tomorrow. Admission and Anticipated Discharge Date Admission Date: December 28, 2022 Subjective Pt seen in follow up of hip fracture Patient states he fell twice, he feels that he was dehydrated and his blood pressure was low and that is why he fell Denies any chest pain or shortness of breath He did have cardiac cath and POLY placed in June. Currently lying in bed, in no acute distress, besides some hip pain. Denies fevers chills, denies chest pain or shortness of breath, denies abdominal pain nausea vomiting Review of Systems Review of Systems: All systems reviewed & are unremarkable except as noted in Subjective Physical Exam Physical Exam: General: WD/WN M i n NAD HEENT: head normocephalic, rosa m st mucus membranes CV: S1/S2, (-) M/ G/R, (-) edema Res p: Lungs CTA in al l choi. On RA GI : Abdomen S/NT/ND, Ax4 bowel sounds, (-) CVA tendernes s Musculoskeletal: moves extremities Neuro: AAOx3, PER RL, speech fluent, no facial asymmet ry, answers approp riately, moves ext remities Skin: (-) rashes , (-) eryt radha. multiple tat toos Results & Data Results & Data Vital Signs (Past 12 Hours) Vital Signs Temp Pulse Pulse Resp BP Pulse Ox O2 Del Method 12/29/22 04:09 36.9 C 87 18 163/100 H 98 Room Air 12/29/22 01:15 96 H 12/28/22 22:45 36.9 C 97 H 18 159/106 H 96 Room Air 12/28/22 19:38 36.7 C 91 H 18 150/101 H 99 Room Air Laboratory Results 12/29/22 12/29/22 12/29/22 Range/Units 16:40 12:06 07:00 WBC (4.8-10.8) K/ul RBC (4.70-6.10) M/uL Hgb (14.0-18.0) g/dl Hct (42.0-52.0) % MCV (80.0-100.0) fL MCH (25.0-34.0) pg MCHC (32.0-36.0) g/dL RDW Std Deviation (36.4-46.3) fL RDW Coeff of Pancho (11.5-14.5) % Plt Count (130-400) K/uL MPV (9.4-12.4) fL Sodium 139 (136-145) mmol/L Potassium 4.2 (3.5-5.1) mmol/L Chloride 102 (98-107) mmol/L Carbon Dioxide 27 (21-32) mmol/L Anion Gap 10 (3-11) BUN 18 (6-23) mg/dl Creatinine 0.79 (0.6-1.4) mg/dl Est Cr Clr Drug Dosing 128.2 ml/min Est GFR ( Amer) 124.8 ml/min Est GFR (Non-Af Amer) 107.7 ml/min BUN/Creatinine Ratio 22.8 H (10-20) Glucose 98 (70-99(Fasting)) mg/dl POC Glucose 152 H 88 (70-99) mg/dl Estimat Average Glucose mg/dl Hemoglobin A1c (4.5-5.6) % Calcium 9.2 (8.6-10.3) mg/dl Total Bilirubin 1.5 H (0.2-1.0) mg/dl AST 10 L (13-39) U/L ALT 10 (7-52) U/L Alkaline Phosphatase 109 H (34-104) U/L Total Protein 6.5 (6.0-8.3) gm/dl Albumin 3.8 (3.4-5.0) gm/dl Globulin 2.7 (2.5-4.0) gm/dl Albumin/Globulin Ratio 1.4 (0.9-2) 12/29/22 12/29/22 12/29/22 Range/Units 07:00 07:00 06:18 WBC 14.54 H (4.8-10.8) K/ul RBC 4.58 L (4.70-6.10) M/uL Hgb 13.0 L (14.0-18.0) g/dl Hct 39.1 L (42.0-52.0) % MCV 85.4 (80.0-100.0) fL MCH 28.4 (25.0-34.0) pg MCHC 33.2 (32.0-36.0) g/dL RDW Std Deviation 41.4 (36.4-46.3) fL RDW Coeff of Pancho 13.4 (11.5-14.5) % Plt Count 367 (130-400) K/uL MPV 11.0 (9.4-12.4) fL Sodium (136-145) mmol/L Potassium (3.5-5.1) mmol/L Chloride (98-107) mmol/L Carbon Dioxide (21-32) mmol/L Anion Gap (3-11) BUN (6-23) mg/dl Creatinine (0.6-1.4) mg/dl Est Cr Clr Drug Dosing ml/min Est GFR ( Amer) ml/min Est GFR (Non-Af Amer) ml/min BUN/Creatinine Ratio (10-20) Glucose (70-99(Fasting)) mg/dl POC Glucose 97 (70-99) mg/dl Estimat Average Glucose 163 mg/dl Hemoglobin A1c 7.3 H (4.5-5.6) % Calcium (8.6-10.3) mg/dl Total Bilirubin (0.2-1.0) mg/dl AST (13-39) U/L ALT (7-52) U/L Alkaline Phosphatase (34-104) U/L Total Protein (6.0-8.3) gm/dl Albumin (3.4-5.0) gm/dl Globulin (2.5-4.0) gm/dl Albumin/Globulin Ratio (0.9-2) // Range/Units 20:21 WBC (4.8-10.8) K/ul RBC (4.70-6.10) M/uL Hgb (14.0-18.0) g/dl Hct (42.0-52.0) % MCV (80.0-100.0) fL MCH (25.0-34.0) pg MCHC (32.0-36.0) g/dL RDW Std Deviation (36.4-46.3) fL RDW Coeff of Pancho (11.5-14.5) % Plt Count (130-400) K/uL MPV (9.4-12.4) fL Sodium (136-145) mmol/L Potassium (3.5-5.1) mmol/L Chloride (98-107) mmol/L Carbon Dioxide (21-32) mmol/L Anion Gap (3-11) BUN (6-23) mg/dl Creatinine (0.6-1.4) mg/dl Est Cr Clr Drug Dosing ml/min Est GFR ( Amer) ml/min Est GFR (Non-Af Amer) ml/min BUN/Creatinine Ratio (10-20) Glucose (70-99(Fasting)) mg/dl POC Glucose 113 H (70-99) mg/dl Estimat Average Glucose mg/dl Hemoglobin A1c (4.5-5.6) % Calcium (8.6-10.3) mg/dl Total Bilirubin (0.2-1.0) mg/dl AST (13-39) U/L ALT (7-52) U/L Alkaline Phosphatase (34-104) U/L Total Protein (6.0-8.3) gm/dl Albumin (3.4-5.0) gm/dl Globulin (2.5-4.0) gm/dl Albumin/Globulin Ratio (0.9-2) Medications Administered Current Inpatient Medications Acetaminophen (Acetaminophen 325 Mg Tab) 650 mg PO Q4H PRN PRN Reason: Pain or Fever Stop: 01/27/23 14:08 Last Admin: 12/28/22 21:07 Dose: 650 mg Al Hydrox/Mg Hydrox/Simethicone (Aluminum/Magnesium Susp 30 Ml Udc) 15 ml PO Q4H PRN PRN Reason: Dyspepsia Stop: 01/27/23 14:08 Amlodipine Besylate (Amlodipine Besylate 5 Mg Tab) 2.5 mg PO DAILY MAE Stop: 01/28/23 08:59 Aspirin (Aspirin 81 Mg Ectab) 81 mg PO DAILY [facility]E Stop: 01/28/23 08:59 Atorvastatin Calcium (Atorvastatin 40 Mg Tab) 40 mg PO DAILY [facility]E Stop: 01/28/23 08:59 Bisacodyl (Bisacodyl 10 Mg Supp) 10 mg OH DAILY PRN PRN Reason: Constipation Stop: 01/27/23 14:39 Dextrose (Dextrose 50% 50 Ml Syringe) 25 - 50 ml IV UD PRN; Protocol PRN Reason: Hypoglycemia Protocol Stop: 01/27/23 16:33 Duloxetine HCl (Duloxetine Hcl 30 Mg Cap) 30 mg PO DAILY MAE Stop: 01/28/23 08:59 Enalapril Maleate (Enalapril Maleate 10 Mg Tab) 20 mg PO DAILY [facility] Stop: 01/27/23 16:14 Last Admin: 12/28/22 17:16 Dose: 20 mg Gabapentin (Gabapentin 300 Mg Cap) 300 mg PO TID [facility] Stop: 01/27/23 20:59 Last Admin: 12/28/22 21:08 Dose: 300 mg Glucagon (Glucagon For Inj 1 Mg Vial) 1 mg SQ UD PRN; Protocol PRN Reason: Hypoglycemia Protocol Stop: 01/27/23 16:33 Glucose (Glucose 10 Tab/Tube) 4 - 8 tab PO UD PRN; Protocol PRN Reason: Hypoglycemia Treatment Stop: 01/27/23 16:33 Glucose (Glucose 40% Gel 15 Gm Tube) 15 - 30 gm PO UD PRN; Protocol PRN Reason: Hypoglycemia Protocol Stop: 01/27/23 16:33 Insulin Aspart (Insulin Aspart Per Unit Charge) 0 units SC ACHS [facility]; Protocol Stop: 01/27/23 16:59 Last Admin: 12/28/22 21:06 Dose: 2 units Magnesium Hydroxide (Magnesium Hydroxide Susp 30 Ml Udc) 30 ml PO Q12H PRN PRN Reason: Constipation Stop: 01/27/23 14:08 Magnesium Hydroxide (Magnesium Hydroxide Susp 30 Ml Udc) 30 ml PO DAILY PRN PRN Reason: Constipation Stop: 01/27/23 14:39 Metoprolol Succinate (Metoprolol Succ 25mg Ext Rel Tab) 25 mg PO DAILY [facility] Stop: 01/27/23 16:14 Last Admin: 12/28/22 17:16 Dose: 25 mg Miscellaneous (Carbohydrates For Hypoglycemia ) 15 - 30 gm PO UD PRN PRN Reason: Hypoglycemia Protocol Stop: 01/27/23 16:33 Miscellaneous Information (Pharmacy Glycemic Mgmt Consult) 1 each N/A UD PRN PRN Reason: Consult Stop: 01/27/23 16:33 Montelukast Sodium (Montelukast Sodium 10 Mg Tablet) 10 mg PO DAILY [facility] Stop: 01/28/23 08:59 Morphine Sulfate (Morphine Sulfate 2 Mg/Ml Carp) 1 mg IV Q6H PRN PRN Reason: Pain Stop: 01/11/23 21:20 Last Admin: 12/28/22 23:32 Dose: 1 mg Naloxone HCl (Naloxone Hcl 0.4 Mg/1 Ml Vial/Carp) 0.1 mg IV UD PRN PRN Reason: Opiate Overdose Stop: 01/27/23 14:39 Ondansetron HCl (Ondansetron Inj 2 Mg/Ml 2 Ml Vial) 4 mg IV Q6H PRN PRN Reason: Nausea Stop: 01/27/23 14:08 Pantoprazole Sodium (Pantoprazole 40 Mg Tab) 40 mg PO DAILY MAE Stop: 01/28/23 08:59 Polyethylene Glycol (Polyethylene (Miralax) 17 Gm Pack) 17 gm PO DAILY PRN PRN Reason: Constipation Stop: 01/27/23 14:08 Senna/Docusate Sodium (Docusate Sodium/Senna 50/8.6mg Tab) 2 tab PO HS [facility] Stop: 01/27/23 20:59 Last Admin: 12/28/22 21:08 Dose: 2 tab
[2022-12-29 07:53] LABS: Estimated Average Glucose 163 mg/dl; Hemoglobin A1C 7.3 % (4.5-5.6)
[2022-12-29 07:55] LABS: Hematocrit (blood only) 39.1 % (42.0-52.0); Mean Corpuscular Hemoglobin 28.4 pg (25.0-34.0); Mean Corpuscular Hgb Conc 33.2 g/dL (32.0-36.0); Mean Corpuscular Volume 85.4 fL (80.0-100.0); Platelet Count 367 K/uL (130-400); RDW Coefficient of Variation 13.4 % (11.5-14.5); RDW Standard Deviation 41.4 fL (36.4-46.3); Red Blood Count 4.58 M/uL (4.70-6.10); White Blood Count 14.54 K/ul (4.8-10.8)
[2022-12-29] MEDS: INSULIN ASPART PER UNIT CHARGE SC SCH ×4 (08:27→20:52)
[2022-12-29 08:29] LABS: Albumin Globulin Ratio 1.4 (0.9-2); Albumin Level 3.8 gm/dl (3.4-5.0); BUN Creatinine Ratio 22.8 (10-20); Bilirubin,Total 1.5 mg/dl (0.2-1.0); Calcium 9.2 mg/dl (8.6-10.3); Creatinine Clr Calc Pharmacy 128.2 ml/min; Est GFR (African American) 124.8 ml/min; Est GFR (Non-African American) 107.7 ml/min; Globulin 2.7 gm/dl (2.5-4.0); Potassium 4.2 mmol/L (3.5-5.1); Total Protein 6.5 gm/dl (6.0-8.3)
[2022-12-29] MEDS: GABAPENTIN 300 MG CAP PO SCH ×3 (08:29→20:53)
[2022-12-29] MEDS: DULoxetine HCL 30 MG CAP PO SCH (08:30)
[2022-12-29] MEDS: MONTELUKAST SODIUM 10 MG TABLET PO SCH (08:30)
[2022-12-29] MEDS: METOPROLOL SUCC 25MG EXT REL TAB PO SCH (08:30)
[2022-12-29] MEDS: ASPIRIN 81 MG ECTAB PO SCH (08:30)
[2022-12-29] MEDS: ENALAPRIL MALEATE 10 MG TAB PO SCH (08:30)
[2022-12-29] MEDS: amLODIPine BESYLATE 5 MG TAB PO SCH (08:30)
[2022-12-29] MEDS: PANTOprazole 40 MG TAB PO SCH (08:30)
[2022-12-29] MEDS: ATORVASTATIN 40 MG TAB PO SCH (08:30)
[2022-12-29] MEDS: MoRPHine SULFATE 2 MG/ML CARP IV PRN ×4 (08:38→20:52)
--- NOTE | 2022-12-29 11:31 | Communication Note ---
Date of Service: December 29, 2022 I reviewed radiographs and history and physical examination notes. It's likely he would benefit from cannulated screw fixation. Discuss with Dr. Colunga who may consider Surgical fixation tomorrow.Would appreciate input from the hospitalist as the whether or not he is cleared for surgery given recent stents. . Would also appreciate advice on whether or not he's able to hold his anticoagulation.
--- NOTE | 2022-12-29 12:54 | Orthopedic Consultation ---
Date of Consultation December 29, 2022 Assessment & Plan (1) Subcapital fracture of left femur: CT results were reviewed with the patient. I have also discussed the findings with Dr. Vasquez and Dr. Colunga. The plan will be for ORIF of the left subcapital femur fx with the Synthes femoral neck system on 12.30.[address] Colunga's clinic day. All potential risks, benefits, complications, alternatives, and rehab have been discussed with the patient and he wishes to proceed. He will be given his diet today and be kept NPO after midnight tonight. His Plavix is currently being held but he is still on aspirin. Medicine and potentially cardiology input on anticoagulation from cardiac stents done in [place] appreciated. We will follow with the patient post operatively. History of Present Illness Reason for Consultation: Left hip pain Attending Physician: Po Verma MD History of Present Illness This is a patient with a hx of a fall ~2-3 weeks ago. States he had some left hip and a lot of bruising after the fall but figured it was just a bruise of the area that hit the ground. Over the past couple of weeks, he has had some worsening left hip pain and difficulty with ambulation. He was using a wheelchair to get around. He then came to [facility] ER where x-rays noted a subcapital left femur fx. Orthopedics was consulted for evaluation. Allergies Allergy/AdvReac Type Severity Reaction Status Date / Time adhesive Allergy Intermediate Contact Verified 12/28/22 08:48 dermatitis latex Allergy Mild RASH Verified 12/28/22 08:48 tramadol Allergy Unknown n/v Verified 12/28/22 08:48 Home Medications Medication Instructions Recorded Confirmed Type duloxetine 30 mg capsule,delayed 30 mg PO DAILY 06/16/22 12/28/22 History release gabapentin 300 mg capsule 300 mg PO TID 06/16/22 12/28/22 History inulin 2,500 mg-vitamin D3 500 1 tab PO DAILY 06/16/22 12/28/22 History unit chewable tablet (Fiber Gummies with Vitamin D3) metformin 500 mg tablet 1,000 mg PO BID 06/16/22 12/28/22 History montelukast 10 mg tablet 10 mg PO DAILY 06/16/22 12/28/22 History pantoprazole 40 mg tablet,delayed 40 mg PO DAILY 06/16/22 12/28/22 History release amlodipine 2.5 mg tablet 2.5 mg PO DAILY #30 tabs 06/17/22 12/28/22 Rx aspirin 81 mg tablet,delayed 81 mg PO DAILY #30 tabs 06/17/22 12/28/22 Rx release atorvastatin 40 mg tablet 40 mg PO DAILY #30 tabs 06/17/22 12/28/22 Rx clopidogrel 75 mg tablet 75 mg PO DAILY #30 tabs 06/17/22 12/28/22 Rx enalapril maleate 10 mg tablet 20 mg PO DAILY #60 tabs 06/17/22 12/28/22 Rx metoprolol succinate 25 mg 25 mg PO DAILY #30 tabs 06/17/22 12/28/22 Rx tablet,extended release 24 hr empagliflozin 25 mg tablet 25 mg PO DAILY 11/23/22 12/28/22 History (Jardiance) Patient History Medical History Bipolar 1 disorder, depressed Central retinal artery occlusion, left eye Closed left femoral fracture Diabetic peripheral neuropathy Hyperlipidemia Hypertension Ischemic cardiomyopathy Mood disorder Noncompliance Systolic congestive heart failure Type 2 diabetes mellitus Surgical History History of dental surgery S/P arthroscopic knee surgery Family History Other Cancer Diabetes Hypertension Social History Smoking Status: Never smoker Hx Alcohol Use: No Hx Substance Use: No Preferred Language: Kyrgyz Communication Ability: Effective Current Living Situation: Family Feels Safe at Home: Yes Assistive Devices: Crutches Physical Exam Constitutional: WD/WN, vitals as above no acute distress (lying comfortably in bed.) ENMT: external ear and nose normal, oropharynx normal Neck: trachea midline Musculoskeletal: Hip: + joint line tenderness (left groin and lateral hip), + DAR test positive (left) and + log roll test positive (left); no skin erythema, no ecchymosis and no surgical incision Skin: no rashes, warm and dry Trauma: no evidence of skin trauma Neurologic: normal touch/pain/proprioception Psychiatric: A+Ox3, euthymic affect Speech: normal rate/rhythm/volume of speech Results & Data Vital Signs (Past 12 Hours) Vital Signs Temp Pulse Pulse Resp BP Pulse Ox O2 Del Method 12/29/22 11:26 37 C 94 H 20 158/100 H 98 Room Air 12/29/22 08:10 36.9 C 89 19 155/95 H 97 Room Air 12/29/22 07:33 86 12/29/22 04:09 36.9 C 87 18 163/100 H 98 Room Air 12/29/22 01:15 96 H Diagnostic Findings Plain film x-rays and CT of the left hip reviewed. CT suggests subacute subc apital left femur fx. There is impaction of the fx.
[2022-12-29] MEDS: ACETAMINOPHEN 325 MG TAB PO PRN ×2 (13:21→18:15)
--- NOTE | 2022-12-29 17:30 | Anesthesiology Consultation ---
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 initiated History Surgery Operation Date: 12/30/22 08:10 Proposed Procedures p Left Hip Femoral Neck Bruce - Franklin Colunga DO Height/Weight Height: 6 ft Weight: 84.5 kg Allergies Allergy/AdvReac Type Severity Reaction Status Date / Time adhesive Allergy Intermediate Contact Verified 12/28/22 08:48 dermatitis latex Allergy Mild RASH Verified 12/28/22 08:48 tramadol Allergy Unknown n/v Verified 12/28/22 08:48 Medications Home Medications Medication Instructions Recorded Confirmed Last Taken duloxetine 30 mg capsule,delayed 30 mg PO DAILY 06/16/22 12/28/22 Unknown release gabapentin 300 mg capsule 300 mg PO TID 06/16/22 12/28/22 Unknown inulin 2,500 mg-vitamin D3 500 1 tab PO DAILY 06/16/22 12/28/22 Unknown unit chewable tablet (Fiber Gummies with Vitamin D3) metformin 500 mg tablet 1,000 mg PO BID 06/16/22 12/28/22 06/13/22 montelukast 10 mg tablet 10 mg PO DAILY 06/16/22 12/28/22 Unknown pantoprazole 40 mg tablet,delayed 40 mg PO DAILY 06/16/22 12/28/22 Unknown release amlodipine 2.5 mg tablet 2.5 mg PO DAILY #30 tabs 06/17/22 12/28/22 Unknown aspirin 81 mg tablet,delayed 81 mg PO DAILY #30 tabs 06/17/22 12/28/22 Unknown release atorvastatin 40 mg tablet 40 mg PO DAILY #30 tabs 06/17/22 12/28/22 Unknown clopidogrel 75 mg tablet 75 mg PO DAILY #30 tabs 06/17/22 12/28/22 Unknown enalapril maleate 10 mg tablet 20 mg PO DAILY #60 tabs 06/17/22 12/28/22 Unknown metoprolol succinate 25 mg 25 mg PO DAILY #30 tabs 06/17/22 12/28/22 Unknown tablet,extended release 24 hr empagliflozin 25 mg tablet 25 mg PO DAILY 11/23/22 12/28/22 Unknown (Jardiance) Active Medications Generic Name Dose Route Start Last Admin Trade Name Freq PRN Reason Stop Dose Admin Acetaminophen 650 mg 12/28/22 14:09 07/25/23 13:21 Acetaminophen 325 Mg Tab PO 08/23/23 14:08 650 mg Q4H PRN Administration Pain or Fever Amlodipine Besylate 2.5 mg 12/29/22 09:00 12/29/22 08:30 Amlodipine Besylate 5 Mg Tab PO 01/28/23 08:59 2.5 mg DAILY MAE Administration Aspirin 81 mg 12/29/22 09:00 12/29/22 08:30 Aspirin 81 Mg Ectab PO 01/28/23 08:59 81 mg DAILY MAE Administration Atorvastatin Calcium 40 mg 12/29/22 09:00 12/29/22 08:30 Atorvastatin 40 Mg Tab PO 01/28/23 08:59 40 mg DAILY MAE Administration Duloxetine HCl 30 mg 12/29/22 09:00 12/29/22 08:30 Duloxetine Hcl 30 Mg Cap PO 01/28/23 08:59 30 mg DAILY MAE Administration Enalapril Maleate 20 mg 12/28/22 16:15 12/29/22 08:30 Enalapril Maleate 10 Mg Tab PO 01/27/23 16:14 20 mg DAILY MAE Administration Gabapentin 300 mg 12/28/22 21:00 12/29/22 13:21 Gabapentin 300 Mg Cap PO 01/27/23 20:59 300 mg TID MAE Administration Insulin Aspart 0 units 12/28/22 17:00 12/29/22 17:07 Insulin Aspart Per Unit Charge SC 01/27/23 16:59 8 units ACHS MAE Administration Protocol Metoprolol Succinate 25 mg 12/28/22 16:15 12/29/22 08:30 Metoprolol Succ 25mg Ext Rel Tab PO 01/27/23 16:14 25 mg DAILY MAE Administration Montelukast Sodium 10 mg 12/29/22 09:00 12/29/22 08:30 Montelukast Sodium 10 Mg Tablet PO 01/28/23 08:59 10 mg DAILY MAE Administration Morphine Sulfate 2 mg 12/29/22 11:46 12/29/22 16:02 Morphine Sulfate 2 Mg/Ml Carp IV 01/11/23 21:20 2 mg Q4H PRN Administration Pain Pantoprazole Sodium 40 mg 12/29/22 09:00 12/29/22 08:30 Pantoprazole 40 Mg Tab PO 01/28/23 08:59 40 mg DAILY MAE Administration Senna/Docusate Sodium 2 tab 12/28/22 21:00 12/28/22 21:08 Docusate Sodium/Senna 50/8.6mg Tab PO 01/27/23 20:59 2 tab HS MAE Administration Past Medical History Medical History Bipolar 1 disorder, depressed Central retinal artery occlusion, left eye Closed left femoral fracture Diabetic peripheral neuropathy Hyperlipidemia Hypertension Ischemic cardiomyopathy Mood disorder Noncompliance Systolic congestive heart failure Type 2 diabetes mellitus Past Family History Family History Other Cancer Diabetes Hypertension Past Surgical History Surgical History History of dental surgery S/P arthroscopic knee surgery Social History Smoking Status: Never smoker Hx Alcohol Use: No Hx Substance Use: No substance use type: does not use and marijuana Physical Exam Vital Signs Last Vital Signs Temp 98.8 F 12/29/22 15:47 Pulse 93 H 12/29/22 15:47 Resp 20 12/29/22 15:47 BP 150/95 H 12/29/22 15:47 Pulse Ox 97 12/29/22 15:47 O2 Del Method Room Air 12/29/22 15:47 Testing Laboratory Results 12/29/22 07:00 12/29/22 07:00 Hemoglobin A1c 7.3 % (4.5-5.6) H 12/29/22 07:00 12/29/22 12/29/22 12/29/22 16:40 12:06 06:18 POC Glucose 152 H 88 97 Electrocardiogram Date: 12/28/22 Normal sinus rhythm, rate 93 bpm Normal ECG When compared with ECG of 16-JUN-2022 11:50, No significant change was found Confirmed by Yosi Flores ([id number]) on 12/28/2022 2:51:39 PM Echocardiogram Date: 05/20/22 EF 45% Mild diffuse LV hypokinesis LV wall thickness is moderately increased No significant valvular disease is present A small left pleural effusion is present Cardiac Catheterization Date: 06/16/22 Summary: 1. Successful PCI with implantation of 2 overlapped drug-eluting stents to the OM. FFR analysis of the angiographically borderline LAD stenosis reveals this does not meet hemodynamic significance. 2. Patient will remain on dual antiplatelet therapy for 1 to 2 years. 3. Guideline directed medical therapy for secondary prevention of coronary disease to include; low-dose aspirin, high intensity statin therapy, beta- vera, plus or minus REJI inhibitor/ARB as tolerated.
[2022-12-29] MEDS: DOCUSATE SODIUM/SENNA 50/8.6MG TAB PO SCH (20:53)
[2022-12-30] MEDS: MoRPHine SULFATE 2 MG/ML CARP IV PRN ×4 (02:58→22:16)
[2022-12-30] MEDS: ACETAMINOPHEN 325 MG TAB PO PRN (06:08)
[2022-12-30 06:50] LABS: Hematocrit (blood only) 37.8 % (42.0-52.0); Mean Corpuscular Hgb Conc 34.4 g/dL (32.0-36.0); Mean Corpuscular Volume 84.2 fL (80.0-100.0); Mean Platelet Volume 10.6 fL (9.4-12.4); Platelet Count 358 K/uL (130-400); RDW Coefficient of Variation 13.4 % (11.5-14.5); RDW Standard Deviation 41.6 fL (36.4-46.3); Red Blood Count 4.49 M/uL (4.70-6.10); White Blood Count 13.96 K/ul (4.8-10.8)
[2022-12-30 07:15] LABS: BUN Creatinine Ratio 21.4 (10-20); Calcium 9.1 mg/dl (8.6-10.3); Creatinine Clr Calc Pharmacy 120.6 ml/min; Est GFR (African American) 121.7 ml/min; Magnesium 1.7 mg/dl (1.7-2.4); Phosphorus 3.7 mg/dl (2.5-4.9); Potassium 4.1 mmol/L (3.5-5.1)
[2022-12-30] MEDS: INSULIN ASPART PER UNIT CHARGE SC SCH ×4 (08:22→21:00)
[2022-12-30] MEDS: amLODIPine BESYLATE 5 MG TAB PO SCH (08:26)
[2022-12-30] MEDS: ATORVASTATIN 40 MG TAB PO SCH (08:29)
[2022-12-30] MEDS: DULoxetine HCL 30 MG CAP PO SCH (08:30)
[2022-12-30] MEDS: ENALAPRIL MALEATE 10 MG TAB PO SCH (08:31)
[2022-12-30] MEDS: GABAPENTIN 300 MG CAP PO SCH ×3 (08:34→21:05)
[2022-12-30] MEDS: METOPROLOL SUCC 25MG EXT REL TAB PO SCH (08:37)
[2022-12-30] MEDS: MONTELUKAST SODIUM 10 MG TABLET PO SCH (08:38)
[2022-12-30] MEDS: PANTOprazole 40 MG TAB PO SCH (08:39)
[2022-12-30] MEDS: ASPIRIN 81 MG ECTAB PO SCH ×2 (08:52→21:04)
[2022-12-30] MEDS: D5W AND NSS 1,000 ML IV SCH ×2 (10:04→22:19)
--- NOTE | 2022-12-30 12:33 | Hospitalist Progress Note ---
Date of Service December 30, 2022 Assessment & Plan (1) Closed left femoral fracture: (2) Type 2 diabetes mellitus with diabetic neuropathy, unspecified: (3) Hypertension: (4) Hyperlipidemia: (5) CAD (coronary artery disease): (6) Systolic congestive heart failure: (7) Mood disorder: Plan per Dr. Verma's notes with addendum: Mr. Moctezuma is a 47 year old male that presents to the ED today for uncontrolled pain in his left hip. He was walking to the kitchen two weeks ago when he fell and blacked out. He did not hit his head. His mother got him a wheelchair and he has been sedentary for the past few weeks but the pain became unbearable. Head CT negative; Hip pelvis X-ray indicates left femoral subcapital fracture. He had a recent admission in June where he had a scheduled cardiac catheterization by Dr. Rojas with 2 POLY and is now on Plavix. hip/pelvis x-ray did indicate to obtain a hip CT to further evaluate the fracture; results indicate: Impacted nondisplaced left femoral subcapital fracture. This fracture is subacute to acute. Ortho consult with pain control Close left femoral fracture: Hip pelvis X-ray indicates left femoral subcapital fracture Hip CT: Impacted nondisplaced left femoral subcapital fracture. This fracture is subacute to acute. Ortho Consult for evaluation Pain control with morphine Will hold Plavix until eval by Ortho Per orthopedics - plan for ORIF of the left subcapital femur fx with the Synthes femoral neck system tmrw 12/30/22 NPO after MN His Plavix is currently being held but he is still on aspirin. Medicine and potentially cardiology input on anticoagulation from cardiac stents done in June appreciated. 12/30 stable overall for ORIF today Syncopal Episode likely from Dehydration IV fluids ordered will benefit from Zio Patch monitor also to r/o arrythmia Type II by diabetes mellitus with diabetic neuropathy: Takes Jardiance and Metformin; hold while inpt Last A1C 05/28: 7.5; recheck while here FSBS ACHS SSI a1c 7.3 HTN: Takes amlodipine, enalapril, metoprolol; continue monitor BP HLD: Takes atorvastatin CAD: Systolic HFrEF: POLY x2 in June on ASA and plavix, now plavix held (he is 6 months out of his stent in June) Echo May 2022 showing mild global hypokinesis with an EF of 45% Pt had 2 falls / pre-syncopal episodes echo noted: Gr 1 Diastolic CHF Mood disorder: Challenges with MED and bipolar disorder Takes Cymbalta; continue Disposition: PCP:Dr. Gordillo CODE STATUS: Full code VTE prophylaxis: Sc Heparin Admission and Anticipated Discharge Date Admission Date: December 28, 2022 Subjective ff up for L femoral fracture, etc seen resting in bed, comfortable hungry L hip pain well controlled no chest pain, dyspnea, palpitations, dizziness no other new symptoms Review of Systems Review of Systems: all noted and negative except for above Physical Exam Physical Exam: General- oriented x 3, not in distress, speaks in sentences with no effort or accessory muscle use Eyes- anicteric Neck- no JVD Lungs- clear breath sounds bilaterally, no rales/wheezes Heart- normal rate, regular rhythm; no murmurs Abdomen- normal bowel sounds, nondistended, soft, nontender Extremities- no pretibial edema, no calf tenderness L hip- no hematoma, erythema; mild tenderness Neuro- alert, oriented x 3; no gross focal neurologic deficits Skin- warm & dry Results & Data Results & Data Vital Signs (Past 12 Hours) Vital Signs Temp Pulse Pulse Pulse Resp BP Pulse Ox 12/30/22 11:30 36.5 C 97 H 18 144/82 H 99 12/30/22 07:56 89 12/30/22 07:34 37.0 C 93 H 18 140/93 99 12/30/22 03:00 36.8 C 79 20 149/94 H 99 O2 Del Method 12/30/22 11:30 Room Air 12/30/22 07:56 12/30/22 07:34 Room Air 12/30/22 03:00 Room Air all noted and reviewed including below
[2022-12-30] MEDS ORDERED: LIDOCAINE 2% 2 ML VIAL/AMP(20MG/ML) INFIL ONE (15:39)
[2022-12-30] MEDS ORDERED: ONDANSETRON INJ 2 MG/ML 2 ML VIAL ONE (15:39)
[2022-12-30] MEDS ORDERED: fentaNYL citrate PF 100 MCG/2 ML VIAL ONE ×2 (15:39→17:35)
[2022-12-30] MEDS ORDERED: MIDAZOLAM HCL 1 MG/ML 2ML VIAL ONE (15:39)
[2022-12-30] MEDS ORDERED: PROPOFOL IV EMULSION 10 MG/ML 20 ML VIAL IV ONE (15:39)
[2022-12-30] MEDS ORDERED: ceFAZolin 2,000 MG/15 ML IV PUSH IV ONE (16:08)
[2022-12-30] MEDS ORDERED: ceFAZolin 330 MG/ML 1 GM VIAL IM STA (16:09)
[2022-12-30] MEDS ORDERED: ceFAZolin 2000MG 2,000 MG/15 ML SYR IV SCH (16:15)
[2022-12-30] MEDS ORDERED: ePHEDrine sulfate 50 MG/ML AMP IV PRN (16:19)
[2022-12-30] MEDS ORDERED: fentaNYL citrate PF 100 MCG/2 ML VIAL IV PRN (16:19)
[2022-12-30] MEDS ORDERED: ATROPINE SULFATE 0.1 MG/ML 10ML SYR IV PRN (16:19)
[2022-12-30] MEDS ORDERED: ONDANSETRON INJ 2 MG/ML 2 ML VIAL IV PRN (16:19)
--- NOTE | 2022-12-30 16:19 | History & Physical Bridge Note ---
Date of Service December 30, 2022 History & Physical Bridge Note I have examined the patient, reviewed the History & Physical and in the interval since the performance of the History & Physical I have noted the following changes of clinical significance: no changes noted. Met with pateint discussed risks/benefits of left femoral neck system/orif. After reviewing he elected to procedure with surgery and written consent was obtained.
--- NOTE | 2022-12-30 17:41 | Post Operative Brief Note ---
Immediate Post Op Note v1 Date of Surgery December 30, 2022 Pre & Post Diagnosis Operation Date: 12/30/22 08:10 Pre-Op Diagnosis: Closed left femoral fracture Post-Op Diagnosis: Closed left femoral fracture I identified the patient and participated in the time-out.: Yes Procedure Operation Date: 12/30/22 08:10 Actual Procedures p Left Hip Femoral Neck System(Left) - Franklin Colunga DO Surgeon Franklin Colunga DO Radiation Therapist none Estimated Blood Loss 20 Findings Consistent with Post-Op Diagnosis see dictation Complications none
[2022-12-30] MEDS ORDERED: SODIUM CHLORIDE 0.9% 1000ML 1,000 ML IV SCH (17:45)
--- NOTE | 2022-12-30 17:46 | Operative Report ---
Post Operative Report Pre & Post Diagnosis Operation Date: 12/30/22 08:10 Pre-Op Diagnosis: Closed left femoral fracture Post-Op Diagnosis: Closed left femoral fracture I identified the patient and participated in the time-out.: Yes Procedure Operation Date: 12/30/22 08:10 Actual Procedures p Left Hip Femoral Neck System(Left) - Franklin Colunga DO Surgeon Franklin Colunga DO Video Editor none Estimated Blood Loss 20 Findings Consistent with Post-Op Diagnosis see dictation Specimens none Complications none Indications 47-year-old male presenting 2 weeks after sustaining a fall onto his left side with difficulty ambulating and pain. Radiographs were obtained and demonstrated a nondisplaced left femoral neck fracture. Patient was admitted to medical service and orthopedics was consulted for operative management. I met with the patient preoperatively and we had a lengthy discussion regarding risk benefits potential complications of left femoral neck system for his femoral neck fracture. After reviewing risk benefits and complications he elected proceed with surgical intervention and written consent was obtained. Description of Procedure Implants: Synthes Femoral System plate 1 hole, 100 mm antirotational screw, 100 mm bolt, 5 mm x 46 mm starDrive locking screw Patient was appropriate identified in the preoperative holding area and the left lower extremity was marked. He was then taken back to the operative suite where he received antibiotics per protocol as well as anesthesia. He was positioned on the manual fracture table in the supine position. Using the assistance of C arm fluoroscopy he was positioned in a satisfactory position. Fracture was noted to be nondisplaced. Morphology of the femur did somewhat resemble changes that could be seen with an untreated slipped capital femoral epiphysis. Patient was then prepped and draped in the standard orthopedic fashion and timeout was then performed. A 3 cm incision over the lateral aspect of the femur was then made through the skin subcutaneous tissue and IT band fascia. A 130 degree guide was then placed next to bone and a threaded guidewire was inserted into the lateral cortex and advanced into the femoral head and a center center position. Position was confirmed on AP and lateral fluoroscopy and was noted to be satisfactory. Length was then measured and 100 mm was selected for the implant. Bold reamer was then used to ream over the guidewire. 100 mm bolt and 1 hole plate was then inserted over the guidewire and tapped into position. Guidewire was then removed. A sleeve was then attached for the locking screw and a drill was used to drill bicortically. A 5 mm x 46 mm locking screw was then inserted through the hole in the plate. Lastly drill was then used to drill for the antirotation open and 100 mm antirotation hole screw was then placed and locked into the plate. Outrigger was then removed and final radiographs were obtained demonstrating satisfactory position of the implant. Wounds were then copiously irrigated using normal saline solution. Deep fascia was closed using 1-0 Vicryl followed by 2-0 Vicryl for subcutaneous tissue and diana for skin. Sterile dressing of Xeroform 4 x 4 gauze and Tegaderm was then applied. The patient tolerated the procedure well and was taken the recovery room in hemodynamically stable condition. I attest to the content of the Intraoperative Record and any orders documented therein. Any exceptions are noted below.
--- NOTE | 2022-12-30 18:06 | Anesthesiology Progress Note ---
Date of Service December 30, 2022 Anesthesia Post Procedure Vital Signs Vital Signs: Temp Pulse Pulse Pulse Resp BP Pulse Ox 12/30/22 18:00 102 H 17 138/102 H 100 12/30/22 17:50 101 H 16 158/83 H 100 12/30/22 17:41 36.6 C 106 H 15 130/97 100 12/30/22 15:56 37 C 97 H 18 154/112 H 100 12/30/22 15:31 37 C 97 H 20 147/104 H 98 12/30/22 11:30 36.5 C 97 H 18 144/82 H 99 12/30/22 07:56 89 12/30/22 07:34 37.0 C 93 H 18 140/93 99 12/30/22 03:00 36.8 C 79 20 149/94 H 99 12/30/22 00:23 89 12/29/22 22:00 36.7 C 100 H 20 106/73 97 12/29/22 19:41 36.9 C 93 H 18 129/83 98 O2 Del Method O2 Flow Rate 12/30/22 18:00 Oxymask 2 12/30/22 17:50 Oxymask 4 12/30/22 17:41 Oxymask 6 12/30/22 15:56 Room Air 12/30/22 15:31 Room Air 12/30/22 11:30 Room Air 12/30/22 07:56 12/30/22 07:34 Room Air 12/30/22 03:00 Room Air 12/30/22 00:23 12/29/22 22:00 Room Air 12/29/22 19:41 Room Air Pain Intensity Left Hip: Pain Intensity: 3 Transfer of Care Handoff Completed per policy Notes Mental Status: alert / awake / arousable Patient Amnestic to Procedure: Yes Nausea / Vomiting: adequately controlled Pain: adequately controlled Airway Patency, RR, SpO2: stable & adequate BP & HR: stable & adequate Hydration State: stable & adequate Anesthetic Complications: no major complications apparent and Pt Satisfied with anesthetic care
--- NOTE | 2022-12-30 19:02 | Fluoroscopy Report ---
FL hip LT 2-3V CLINICAL HISTORY: LEFT HIP FEMORAL NECK PINNING COMPARISON STUDY: Left hip radiographs and CT of the left hip December 28, 2022. FLUOROSCOPY TIME: 42.8 seconds. Ka, r: 8.82 mGy FLUOROSCOPIC IMAGES: 4 FINDINGS: Fluoroscopy was provided during fixation of the left femoral neck fracture with femoral nec k pinning. The hardware is intact. Fracture alignment appears anatomic. IMPRESSION: Fluoroscopy provided during fixation of the left femoral neck fracture. ACT 112: Negative or not required by law. Electronically signed by: German Hood M.D. 12/30/2022 7:00 PM
[2022-12-30] MEDS: DOCUSATE SODIUM/SENNA 50/8.6MG TAB PO SCH (21:05)
[2022-12-31] MEDS: ceFAZolin 2000MG 2,000 MG/15 ML SYR IV SCH ×2 (00:33→08:25)
[2022-12-31] MEDS: ACETAMINOPHEN 325 MG TAB PO PRN ×2 (00:39→23:12)
[2022-12-31] MEDS: MoRPHine SULFATE 2 MG/ML CARP IV PRN ×4 (04:35→20:38)
[2022-12-31 06:58] LABS: Basophils # (auto) 0.14 K/uL (0-0.2); Basophils % (auto) 0.9 %; Eosinophils # (auto) 0.56 K/uL (0-0.50); Eosinophils % (auto) 3.7 %; Hematocrit (blood only) 33.6 % (42.0-52.0); Hemoglobin 11.2 g/dl (14.0-18.0); Immature Granulocytes # (auto) 0.11 K/uL (0.01-0.20); Immature Granulocytes % (auto) 0.7 %; Lymphocytes # (auto) 4.42 K/uL (1.2-3.4); Lymphocytes % (auto) 29.6 %; Mean Corpuscular Hemoglobin 28.3 pg (25.0-34.0); Mean Corpuscular Hgb Conc 33.3 g/dL (32.0-36.0); Mean Corpuscular Volume 84.8 fL (80.0-100.0); Mean Platelet Volume 10.5 fL (9.4-12.4); Monocytes % (auto) 16.1 %; Neutrophils # (auto) 7.32 K/uL (1.40-6.50); Platelet Count 320 K/uL (130-400); RDW Coefficient of Variation 13.3 % (11.5-14.5); RDW Standard Deviation 41.1 fL (36.4-46.3); Red Blood Count 3.96 M/uL (4.70-6.10); White Blood Count 14.95 K/ul (4.8-10.8)
[2022-12-31 07:16] LABS: BUN Creatinine Ratio 16.9 (10-20); Calcium 8.6 mg/dl (8.6-10.3); Creatinine Clr Calc Pharmacy 113.8 ml/min; Est GFR (African American) 118.8 ml/min; Est GFR (Non-African American) 102.5 ml/min; Potassium 3.8 mmol/L (3.5-5.1)
[2022-12-31] MEDS: INSULIN ASPART PER UNIT CHARGE SC SCH ×4 (08:24→20:37)
[2022-12-31] MEDS: ENALAPRIL MALEATE 10 MG TAB PO SCH (08:29)
[2022-12-31] MEDS: DULoxetine HCL 30 MG CAP PO SCH (08:29)
[2022-12-31] MEDS: GABAPENTIN 300 MG CAP PO SCH ×3 (08:30→20:37)
[2022-12-31] MEDS: MONTELUKAST SODIUM 10 MG TABLET PO SCH (08:30)
[2022-12-31] MEDS: ASPIRIN 81 MG ECTAB PO SCH ×2 (08:30→20:36)
[2022-12-31] MEDS: PANTOprazole 40 MG TAB PO SCH (08:30)
[2022-12-31] MEDS: amLODIPine BESYLATE 5 MG TAB PO SCH (08:30)
[2022-12-31] MEDS: ATORVASTATIN 40 MG TAB PO SCH (08:30)
[2022-12-31] MEDS: METOPROLOL SUCC 25MG EXT REL TAB PO SCH (08:31)
[2022-12-31] MEDS ORDERED: LANTUS PER UNIT CHARGE SC SCH (09:00)
--- NOTE | 2022-12-31 10:49 | Pharmacy Report ---
Pharmacy Glycemic Short Note 2 - Date of Service December 31, 2022 - Glycemic Short BSG Results (Last 24 hours): 12/30/22 12/30/22 12/30/22 11:52 15:56 17:43 Glucose POC Glucose 121 H 140 H 125 H 12/30/22 12/31/22 12/31/22 20:10 06:41 07:32 Glucose 163 H POC Glucose 210 H 151 H OUTPATIENT ANTIDIABETIC REGIMEN: * Metformin 1000 mg PO BID * Jardiance 25 mg PO AM * HbA1c = 7.3% ON 12/29/22 ASSESSMENT: 12/31/22: * Patient had hip surgery yesterday. He was NPO but diet resumed with dinner yesterday. * BSGs yesterday were [phone] mg/dl. BSG above 200 mg/dl at HS yesterday is most likely from having dinner late yesterday and not covered by insulin. * Basal insulin low dose initiated this morning. Novolog carb ratio tightened slightly as well. 12/28/22: * 47 yo M admitted on 12/28/22 secondary to left hip pain and found to have subacute to acute fracture. Pharmacy has been consulted to assist with inpatient glycemic management. Patient is a controlled Type 2 diabetic as an outpatient. Please refer to outpatient regimen and most recent HbA1c above. * BSG in the ED was 140 mg/dL. Upon transfer to the floor, BSG was was 125 mg/dL. Confirmed with floor RN that patient was going to eat dinner. * For now, will order bolus insulin only based on weight/stress of 2. Hold off on basal insulin. Possibility that patient goes NPO after midnight for surgery tomorrow. PLAN FOR INPATIENT GLYCEMIC CONTROL: * Hold outpatient oral diabetes medications * Basal insulin * Lantus 5 units SQ QAM * Bolus insulin * NovoLog per scale ACHS or Q6hrs while NPO * Goal Range: Low 110 mg/dL - High 140 mg/dL * Correction Factor: 30 mg/dL/unit * Nutritional / Prandial insulin per carb ratio of 1 unit per 9 grams CHO c onsumed
[2022-12-31] MEDS: D5W AND NSS 1,000 ML IV SCH (11:51)
--- NOTE | 2022-12-31 16:38 | Hospitalist Progress Note ---
Date of Service December 31, 2022 Assessment & Plan (1) Closed left femoral fracture: (2) Type 2 diabetes mellitus with diabetic neuropathy, unspecified: (3) Hypertension: (4) Hyperlipidemia: (5) CAD (coronary artery disease): (6) Systolic congestive heart failure: (7) Mood disorder: Plan per Dr. Verma's notes with addendum: Mr. Moctezuma is a 47 year old male that presents to the ED today for uncontrolled pain in his left hip. He was walking to the kitchen two weeks ago when he fell and blacked out. He did not hit his head. His mother got him a wheelchair and he has been sedentary for the past few weeks but the pain became unbearable. Head CT negative; Hip pelvis X-ray indicates left femoral subcapital fracture. He had a recent admission in June where he had a scheduled cardiac catheterization by Dr. Rojas with 2 POLY and is now on Plavix. hip/pelvis x-ray did indicate to obtain a hip CT to further evaluate the fracture; results indicate: Impacted nondisplaced left femoral subcapital fracture. This fracture is subacute to acute. Ortho consult with pain control Close left femoral fracture: Hip pelvis X-ray indicates left femoral subcapital fracture Hip CT: Impacted nondisplaced left femoral subcapital fracture. This fracture is subacute to acute. Ortho Consult for evaluation Pain control with morphine Will hold Plavix until eval by Ortho Per orthopedics - plan for ORIF of the left subcapital femur fx with the Synthes femoral neck system tmrw 12/30/22 NPO after MN His Plavix is currently being held but he is still on aspirin. Medicine and potentially cardiology input on anticoagulation from cardiac stents done in June appreciated. 12/31 Postop day #1 Continue pain control Continue PT OT Aspirin 81 mg twice daily started Resume Plavix tomorrow Syncopal Episode likely from Dehydration IV fluids ordered will benefit from Zio Patch monitor also to r/o arrythmia Type II by diabetes mellitus with diabetic neuropathy: Takes Jardiance and Metformin; hold while inpt Last A1C 05/28: 7.5; recheck while here FSBS ACHS SSI a1c 7.3 HTN: Takes amlodipine, enalapril, metoprolol; continue monitor BP HLD: Takes atorvastatin CAD: Systolic HFrEF: POLY x2 in June on ASA and plavix, now plavix held (he is 6 months out of his stent in June) Echo May 2022 showing mild global hypokinesis with an EF of 45% Pt had 2 falls / pre-syncopal episodes echo noted: Gr 1 Diastolic CHF Resume Plavix tomorrow Mood disorder: Challenges with MED and bipolar disorder Takes Cymbalta; continue Disposition: PCP:Dr. Gordillo CODE STATUS: Full code VTE prophylaxis: Sc Heparin Admission and Anticipated Discharge Date Admission Date: December 28, 2022 Subjective Follow-up for status post left hip fracture surgery, etc. Seen resting in bed, comfortable, not in distress States his left hip pain is well controlled no chest pain, dyspnea, palpitations, dizziness No other new symptom Review of Systems Review of Systems: all noted and negative except for above Physical Exam Physical Exam: General- oriented x 3, not in distress, speaks in sentences with no effort or accessory muscle use Eyes- anicteric Neck- no JVD Lungs- clear breath sounds bilaterally, no rales/wheezes Heart- normal rate, regular rhythm; no murmurs Abdomen- normal bowel sounds, nondistended, soft, nontender Extremities- no pretibial edema, no calf tenderness Left hip: Mild edema, no no hematoma Dressing placed-no bleeding or discharge Neuro- alert, oriented x 3; no gross focal neurologic deficits Skin- warm & dry Results & Data Results & Data Vital Signs (Past 12 Hours) Vital Signs Temp Pulse Pulse Resp BP Pulse Ox O2 Del Method 12/31/22 14:55 36.6 C 81 16 130/87 96 Room Air 12/31/22 15:14 102 H 12/31/22 12:06 37.0 C 105 H 16 152/91 H 99 Room Air 12/31/22 08:00 Room Air 12/31/22 08:15 36.7 C 99 H 16 143/87 H 97 Room Air 12/31/22 07:18 97 H all noted and reviewed including below
[2022-12-31] MEDS: DOCUSATE SODIUM/SENNA 50/8.6MG TAB PO SCH (20:37)
[2023-01-01] MEDS: MoRPHine SULFATE 2 MG/ML CARP IV PRN (03:56)
[2023-01-01] MEDS: amLODIPine BESYLATE 5 MG TAB PO SCH (08:16)
[2023-01-01] MEDS: ASPIRIN 81 MG ECTAB PO SCH (08:27)
[2023-01-01] MEDS: ATORVASTATIN 40 MG TAB PO SCH (08:28)
[2023-01-01] MEDS: ENALAPRIL MALEATE 10 MG TAB PO SCH (08:29)
[2023-01-01] MEDS: DULoxetine HCL 30 MG CAP PO SCH (08:29)
[2023-01-01] MEDS: GABAPENTIN 300 MG CAP PO SCH ×2 (08:31→13:23)
[2023-01-01] MEDS: METOPROLOL SUCC 25MG EXT REL TAB PO SCH (08:32)
[2023-01-01] MEDS: MONTELUKAST SODIUM 10 MG TABLET PO SCH (08:33)
[2023-01-01] MEDS: PANTOprazole 40 MG TAB PO SCH (08:34)
[2023-01-01] MEDS ORDERED: CLOPIDOGREL BISULFATE 75 MG TAB PO SCH (09:00)
[2023-01-01] MEDS ORDERED: LANTUS PER UNIT CHARGE SC SCH (09:00)
[2023-01-01] MEDS ORDERED: CHOLECALCIFEROL 1,000 UNITS 25 MCG TAB PO SCH (09:00)
[2023-01-01] MEDS: INSULIN ASPART PER UNIT CHARGE SC SCH ×2 (09:07→12:32)
--- NOTE | 2023-01-01 09:38 | Pharmacy Report ---
Pharmacy Glycemic Short Note 2 - Date of Service January 01, 2023 - Glycemic Short BSG Results (Last 24 hours): 12/31/22 12/31/22 12/31/22 11:31 16:55 19:54 POC Glucose 154 H 165 H 96 01/01/23 07:45 POC Glucose 166 H OUTPATIENT ANTIDIABETIC REGIMEN: * Metformin 1000 mg PO BID * Jardiance 25 mg PO AM * HbA1c = 7.3% ON 12/29/22 ASSESSMENT: 01/01/23: * BSGs yesterday were [phone] mg/dl. Patient received 5 units of basal insulin and 22 units of bolus. * Fasting BSG today = 166 mg/dl. Basal insulin dose increased to 10 units daily this AM. * Novolog parameters continued the same as yesterday. 12/31/22: * Patient had hip surgery yesterday. He was NPO but diet resumed with dinner yesterday. * BSGs yesterday were [phone] mg/dl. BSG above 200 mg/dl at HS yesterday is most likely from having dinner late yesterday and not covered by insulin. * Basal insulin low dose initiated this morning. Novolog carb ratio tightened slightly as well. 12/28/22: * 47 yo M admitted on 12/28/22 secondary to left hip pain and found to have subacute to acute fracture. Pharmacy has been consulted to assist with inpatient glycemic management. Patient is a controlled Type 2 diabetic as an outpatient. Please refer to outpatient regimen and most recent HbA1c above. * BSG in the ED was 140 mg/dL. Upon transfer to the floor, BSG was was 125 mg/dL. Confirmed with floor RN that patient was going to eat dinner. * For now, will order bolus insulin only based on weight/stress of 2. Hold off on basal insulin. Possibility that patient goes NPO after midnight for surgery tomorrow. PLAN FOR INPATIENT GLYCEMIC CONTROL: * Hold outpatient oral diabetes medications * Basal insulin * Lantus 10 units SQ QAM * Bolus insulin * NovoLog per scale ACHS or Q6hrs while NPO * Goal Range: Low 110 mg/dL - High 140 mg/dL * Correction Factor: 30 mg/dL/unit * Nutritional / Prandial insulin per carb ratio of 1 unit per 9 grams CHO consumed
[2023-01-01] MEDS: HYDROCODONE/ACETAMOPHEN 5/325MG TAB PO PRN ×2 (09:57→15:09)
--- NOTE | 2023-01-01 12:39 | Hospitalist Progress Note ---
Date of Service January 01, 2023 Assessment & Plan (1) Closed left femoral fracture: (2) Type 2 diabetes mellitus with diabetic neuropathy, unspecified: (3) Hypertension: (4) Hyperlipidemia: (5) CAD (coronary artery disease): (6) Systolic congestive heart failure: (7) Mood disorder: Plan per Dr. Verma's notes with addendum: Mr. Moctezuma is a 47 year old male that presents to the ED today for uncontrolled pain in his left hip. He was walking to the kitchen two weeks ago when he fell and blacked out. He did not hit his head. His mother got him a wheelchair and he has been sedentary for the past few weeks but the pain became unbearable. Head CT negative; Hip pelvis X-ray indicates left femoral subcapital fracture. He had a recent admission in June where he had a scheduled cardiac catheterization by Dr. Rojas with 2 POLY and is now on Plavix. hip/pelvis x-ray did indicate to obtain a hip CT to further evaluate the fracture; results indicate: Impacted nondisplaced left femoral subcapital fracture. This fracture is subacute to acute. Ortho consult with pain control Close left femoral fracture: Hip pelvis X-ray indicates left femoral subcapital fracture Hip CT: Impacted nondisplaced left femoral subcapital fracture. This fracture is subacute to acute. Ortho Consult for evaluation Pain control with morphine Will hold Plavix until eval by Ortho Per orthopedics - plan for ORIF of the left subcapital femur fx with the Synthes femoral neck system tmrw 12/30/22 NPO after MN His Plavix is currently being held but he is still on aspirin. Medicine and potentially cardiology input on anticoagulation from cardiac stents done in June appreciated. 01/01 Postop day #2 Patient doing well overall Continue pain control, PT and OT Aspirin 81 mg twice daily x1 month then resume usual daily dose Follow-up with orthopedic surgeon Dr. Franklin Colunga in 1 week Syncopal Episode likely from Dehydration IV fluids ordered will benefit from Zio Patch monitor also to r/o arrhythmia Type II by diabetes mellitus with diabetic neuropathy: Takes Jardiance and Metformin a1c 7.3 HTN: Continue amlodipine, enalapril, metoprolol monitor BP HLD: Takes atorvastatin CAD: Systolic HFrEF: POLY x2 in June on ASA and plavix, now plavix held (he is 6 months out of his stent in June) Echo May 2022 showing mild global hypokinesis with an EF of 45% Pt had 2 falls / pre-syncopal episodes echo noted: Gr 1 Diastolic CHF Plavix resumed Mood disorder: Challenges with MED and bipolar disorder Takes Cymbalta; continue Disposition: PCP:Dr. Gordillo CODE STATUS: Full code VTE prophylaxis: Aspirin twice daily per orthopedic service Follow-up with orthopedic surgeon Dr. Franklin Colunga in 1 week Admission and Anticipated Discharge Date Admission Date: December 28, 2022 Subjective Follow-up for status post left hip fracture surgery, etc. Seen resting in bed, comfortable, not in distress States he feels fine overall Left hip pain improving, well controlled no chest pain, dyspnea, palpitations, dizziness No other symptoms Review of Systems Review of Systems: all noted and negative except for above Physical Exam Physical Exam: General- oriented x 3, not in distress, speaks in sentences with no effort or accessory muscle use Eyes- anicteric Neck- no JVD Lungs- clear breath sounds bilaterally, no rales/wheezes Heart- normal rate, regular rhythm; no murmurs Abdomen- normal bowel sounds, nondistended, soft, nontender Extremities- no pretibial edema, no calf tenderness Left hip: Mild edema, small area of hematoma, no active bleeding or discharge Neuro- alert, oriented x 3; no gross focal neurologic deficits Skin- warm & dry Results & Data Results & Data Vital Signs (Past 12 Hours) Vital Signs Temp Pulse Pulse Pulse Resp BP BP 01/01/23 12:01 36.5 C 104 H 93 H 16 144/92 H 144/94 H 01/01/23 11:40 36.5 C 104 H 16 144/94 H 01/01/23 08:00 101 H 01/01/23 08:00 01/01/23 08:06 36.7 C 102 H 18 144/92 H 01/01/23 04:00 37.0 C 92 H 18 143/84 H 01/01/23 00:59 94 H Pulse Ox O2 Del Method 01/01/23 12:01 97 01/01/23 11:40 97 Room Air 01/01/23 08:00 01/01/23 08:00 Room Air 01/01/23 08:06 98 Room Air 01/01/23 04:00 98 Room Air 01/01/23 00:59 all noted and reviewed including below
--- NOTE | 2023-01-01 12:52 | Discharge Summary ---
Discharge Summary Date of Service January 01, 2023 Notes For Next Care Provider Medication Changes From Visit Aspirin 81 mg increased to twice daily x1 month then resume daily dosing Bath as needed Docusate at bedtime Admission HPI Per Admitting Provider Mr. Moctezuma is a 47 year old male that presents to the ED today for uncontrolled pain in his left hip. He was walking to the kitchen two weeks ago when he fell and blacked out. He did not hit his head. His mother got him a wheelchair and he has been sedentary for the past few weeks but the pain became unbearable. Head CT negative; Hip pelvis X-ray indicates left femoral subcapital fracture. He had a recent admission in June where he had a scheduled cardiac catheterization by Dr. Rojas with 2 POLY and is now on Plavix. hip/pelvis x-ray did indicate to obtain a hip CT to further evaluate the fracture; results indicate: Impacted nondisplaced left femoral subcapital fracture. This fracture is subacute to acute. PMH of hypertension, type 2 diabetes, dyslipidemia, HFrEF, mood disorder, history of noncompliance. Some leukocytosis noted WBC 16.34; otherwise labs unremarkable. HTN in ED; did not take his AM medications. Pt will be admitted for further evaluation and management. Please see A/P for further details. Admission Exam Per Admitting Provider Neuro: AAOx4, PERRLA, no aphagia, memory changes, CNII-XII grossly intact HEENT: head normocephalic, moist mucus membranes CV: S1/S2, (-) M/G/R, (-) edema, cap refill < 3 seconds Resp: Lungs CTA in all choi. On RA GI: Abdomen S/NT/ND, Ax4 bowel sounds, (-) CVA tenderness Musculoskeletal: 5/5 B/L UE strength, 5/5 B/L LE strength. No gait disturbance Skin: (-) rashes , (-) erythema. Psych: euthymic mood Principal Dx & Hospital Course #1 = Principal Diagnosis (1) Closed left femoral fracture: (2) Type 2 diabetes mellitus with diabetic neuropathy, unspecified: (3) Hypertension: (4) Hyperlipidemia: (5) CAD (coronary artery disease): (6) Systolic congestive heart failure: (7) Mood disorder: Plan per Dr. Verma's notes with addendum: Mr. Moctezuma is a 47 year old male that presents to the ED today for uncontrolled pain in his left hip. He was walking to the kitchen two weeks ago when he fell and blacked out. He did not hit his head. His mother got him a wheelchair and he has been sedentary for the past few weeks but the pain became unbearable. Head CT negative; Hip pelvis X-ray indicates left femoral subcapital fracture. He had a recent admission in June where he had a scheduled cardiac catheterization by Dr. Rojas with 2 POLY and is now on Plavix. hip/pelvis x-ray did indicate to obtain a hip CT to further evaluate the fracture; results indicate: Impacted nondisplaced left femoral subcapital fracture. This fracture is subacute to acute. Ortho consult with pain control Close left femoral fracture: Hip pelvis X-ray indicates left femoral subcapital fracture Hip CT: Impacted nondisplaced left femoral subcapital fracture. This fracture is subacute to acute. 12/30 status post Left Hip Femoral Neck System(Left) - Franklin Colunga, DO 01/01 Postop day #2 Patient doing well overall Continue pain control, PT and OT Aspirin 81 mg twice daily x1 month then resume usual daily dose Follow-up with orthopedic surgeon Dr. Franklin Colunga in 1 week Syncopal Episode likely from Dehydration IV fluids ordered will benefit from Zio Patch monitor also to r/o arrhythmia Type II by diabetes mellitus with diabetic neuropathy: Takes Jardiance and Metformin a1c 7.3 HTN: Continue amlodipine, enalapril, metoprolol monitor BP HLD: Takes atorvastatin CAD: Systolic HFrEF: POLY x2 in June on ASA and plavix, now plavix held (he is 6 months out of his stent in June) Echo May 2022 showing mild global hypokinesis with an EF of 45% Pt had 2 falls / pre-syncopal episodes echo noted: Gr 1 Diastolic CHF Plavix resumed Mood disorder: Challenges with MED and bipolar disorder Takes Cymbalta; continue Disposition: PCP:Dr. Gordillo CODE STATUS: Full code VTE prophylaxis: Aspirin twice daily per orthopedic service Follow-up with orthopedic surgeon Dr. Franklin Colunga in 1 week Discharge Exam General- oriented x 3, not in distress, speaks in sentences with no effort or accessory muscle use Eyes- anicteric Neck- no JVD Lungs- clear breath sounds bilaterally, no rales/wheezes Heart- normal rate, regular rhythm; no murmurs Abdomen- normal bowel sounds, nondistended, soft, nontender Extremities- no pretibial edema, no calf tenderness Left hip: Mild edema, small area of hematoma, no active bleeding or discharge Neuro- alert, oriented x 3; no gross focal neurologic deficits Skin- warm & dry Updated Medication List Medication Instructions Recorded Confirmed Type duloxetine 30 mg capsule,delayed 30 mg PO DAILY 06/16/22 12/28/22 History release gabapentin 300 mg capsule 300 mg PO TID 06/16/22 12/28/22 History inulin 2,500 mg-vitamin D3 500 1 tab PO DAILY 06/16/22 12/28/22 History unit chewable tablet (Fiber Gummies with Vitamin D3) metformin 500 mg tablet 1,000 mg PO BID 06/16/22 12/28/22 History montelukast 10 mg tablet 10 mg PO DAILY 06/16/22 12/28/22 History pantoprazole 40 mg tablet,delayed 40 mg PO DAILY 06/16/22 12/28/22 History release amlodipine 2.5 mg tablet 2.5 mg PO DAILY #30 tabs 06/17/22 12/28/22 Rx aspirin 81 mg tablet,delayed 81 mg PO DAILY #30 tabs 06/17/22 12/28/22 Rx release atorvastatin 40 mg tablet 40 mg PO DAILY #30 tabs 06/17/22 12/28/22 Rx clopidogrel 75 mg tablet 75 mg PO DAILY #30 tabs 06/17/22 12/28/22 Rx enalapril maleate 10 mg tablet 20 mg PO DAILY #60 tabs 06/17/22 12/28/22 Rx metoprolol succinate 25 mg 25 mg PO DAILY #30 tabs 06/17/22 12/28/22 Rx tablet,extended release 24 hr empagliflozin 25 mg tablet 25 mg PO DAILY 11/23/22 12/28/22 History (Jardiance) cholecalciferol (vitamin D3) 25 1,000 unit PO QAM 60 days #60 caps 01/01/23 Rx mcg (1,000 unit) capsule hydrocodone 5 mg-acetaminophen 325 1 tab PO Q4H PRN pain #10 tabs 01/01/23 Rx mg tablet sennosides 8.6 mg-docusate sodium 2 tab PO HS 14 days #28 tabs 07/28/23 Rx 50 mg tablet (Senokot-S) Hospital Stay Data Consultations 12/28/22 14:40 Consult Orthopedic Surgery Routine Procedures Performed Operation Date: 12/30/22 08:10 Actual Procedures p Left Hip Femoral Neck System(Left) - Franklin Colunga DO Diagnostic Imagining Performed Hip/Pelvis X-Ray 12/28/22 11:08 XR hip LT 2V w pelvis CLINICAL HISTORY: Fall, hip pain COMPARISON: CT of the abdomen and pelvis February 15, 2018. FINDINGS: Sacroiliac joints and symphysis pubis are intact. The left femoral neck is foreshortened. There is a band of sclerosis within the left femoral neck. This is new since CT of February 15, 2018. This suggests an impacted left femoral subcapital fracture. There is moderate bilateral hip osteoarthritis. No additional fractures are present. IMPRESSION: 1. Impacted left femoral subcapital fracture. This fracture may be subacute given sclerosis. A CT of the left hip could be obtained for confirmation. 2. Moderate bilateral hip osteoarthritis. ACT 112: Negative or not required by law. Electronically signed by: German Hood M.D. 12/28/2022 1:47 PM Lumbar Spine X-Ray 12/28/22 11:08 XR lumbar spine min 4V routine CLINICAL HISTORY: Fall. Low back pain. COMPARISON STUDY: Lumbar spine 02/02/2017. FINDINGS: Minimal anterior wedging at T12 and L1 remains unchanged. This is likely chronic. No acute fracture or subluxation within the lumbar spine. Disc spaces are preserved. Moderate to severe facet degenerative changes again noted within the lower lumbar spine. This remains unchanged. The visualized sacrum is intact. Increased density overlying the right sacroiliac joint is likely due to the overlying bowel. IMPRESSION: No acute fracture or subluxation within the lumbar spine. ACT 112: Negative or not required by law. Electronically signed by: Quinton Cooper M.D. 12/28/2022 1:[address] 12/28/22 14:[address] WITHOUT CONTRAST CLINICAL HISTORY: Left femoral fracture. COMPARISON STUDY: Pelvis and left hip radiographs performed earlier today. TECHNIQUE: Axial images of the left hip were obtained without IV contrast. Sagittal and coronal reconstructions were viewed. Automated exposure control was utilized for the study. A dose lowering technique was utilized adhering to the principles of ALARA. FINDINGS: The bladder is moderately distended. There is fluid within the left i liopsoas bursa. Note is made of an impacted nondisplaced left femoral subcapital fracture. The fracture margins are sclerotic. No additional fractures are identified on this exam. There is moderate left hip osteoarthritis. There is no left inguinal lymphadenopathy. IMPRESSION: 1. Impacted nondisplaced left femoral subcapital fracture. This fracture is subacute to acute. 2. Moderate left hip osteoarthritis. ACT 112: Negative or not required by law. Electronically signed by: German Hood M.D. 12/28/2022 4:12 PM Hip X-Ray 12/30/22 00:00 FL hip LT 2-3V CLINICAL HISTORY: LEFT HIP FEMORAL NECK PINNING COMPARISON STUDY: Left hip radiographs and CT of the left hip December 28, 2022. FLUOROSCOPY TIME: 42.8 seconds. Ka, r: 8.82 mGy FLUOROSCOPIC IMAGES: 4 FINDINGS: Fluoroscopy was provided during fixation of the left femoral neck fracture with femoral neck pinning. The hardware is intact. Fracture alignment appears anatomic. IMPRESSION: Fluoroscopy provided during fixation of the left femoral neck fracture. ACT 112: Negative or not required by law. Electronically signed by: German Hood M.D. 12/30/2022 7:00 PM Pending Results Patient Have Any Pending Studies at Discharge: No Discharge Instructions Given to Patient (Per Discharging Provider) Please refer to accompanying hospital discharge summary for further details. Total Time Total Time Spent Total Time Spent (In Minutes): >30 minutes
--- NOTE | 2023-01-01 13:31 | Orthopedic Progress Note ---
Date of Service January 01, 2023 Assessment & Plan (1) Subcapital fracture of left femur: Plan: POD 2 ORIF left Subcap hip fx Progressing well with PT DVT prophylaxis - ASA bid Pain management as written. Pt planning for dc. Ortho signing off at this time. Instructions placed in dc section. Admission and Anticipated Discharge Date Admission Date: December 28, 2022 Subjective POD 2 Pt just starting his PT session when seen this AM. Doing very well. State he has been ambulating in the hallways. Pain is controlled. No complaints at this time. Physical Exam Physical Exam: Dressings are C/D/I. No erythema around the dressing area. Minimal swelling. NV intact. Currenlty ambulating in room with walker. Results & Data Vital Signs (Past 12 Hours) Vital Signs Temp Pulse Pulse Pulse Resp BP BP 01/01/23 12:01 36.5 C 104 H 93 H 16 144/92 H 144/94 H 01/01/23 11:40 36.5 C 104 H 16 144/94 H 01/01/23 08:00 101 H 01/01/23 08:00 01/01/23 08:06 36.7 C 102 H 18 144/92 H 01/01/23 04:00 37.0 C 92 H 18 143/84 H Pulse Ox O2 Del Method 01/01/23 12:01 97 01/01/23 11:40 97 Room Air 01/01/23 08:00 01/01/23 08:00 Room Air 01/01/23 08:06 98 Room Air 01/01/23 04:00 98 Room Air
== END 2023-01-01 15:30 | DRG 481 ==
LOC: ED 10:10 → 2N 14:04 → SUATTDRO 14:04 → 2N 15:53

== ENCOUNTER 2023-01-31 17:25 | Inpatient (IN) ==
[2023-01-31] MEDS ORDERED: ONDANSETRON INJ 2 MG/ML 2 ML VIAL IV STA (17:32)
--- NOTE | 2023-01-31 17:38 | Emergency Department Note ---
History of Present Illness General Chief complaint: Illness Time Seen by Provider: 01/31/23 17:29 History of Present Illness 47-year-old male presents to the emergency department via EMS with a 2-day history of nausea vomiting diarrhea. Patient denies abdominal pain. Patient is status post hip surgery 2 months ago he states he is been doing very well. Patient denies any diabetic foot ulcers. Patient denies any lesions on his skin. Patient denies fever or sick contacts. Patient denies specific abdominal pain chest pain shortness of breath. Patient states general malaise. Feels like he was dehydrated. There are no other mitigating or alleviating factors. Patient does state that he is been taking his insulin and his oral hypoglycemics Home Medications Medication Instructions Recorded Confirmed Type gabapentin 300 mg capsule 300 mg PO TID 06/16/22 01/31/23 History inulin 2,500 mg-vitamin D3 500 1 tab PO DAILY 06/16/22 01/31/23 History unit chewable tablet (Fiber Gummies with Vitamin D3) montelukast 10 mg tablet 10 mg PO DAILY 06/16/22 01/31/23 History pantoprazole 40 mg tablet,delayed 40 mg PO DAILY 06/16/22 01/31/23 History release atorvastatin 40 mg tablet 40 mg PO DAILY #30 tabs 06/17/22 01/31/23 Rx clopidogrel 75 mg tablet 75 mg PO DAILY #30 tabs 06/17/22 01/31/23 Rx hydrocodone 5 mg-acetaminophen 325 1 tab PO Q4H PRN pain #10 tabs 01/01/23 01/31/23 Rx mg tablet amlodipine 10 mg-benazepril 20 mg 1 cap PO DAILY 01/31/23 01/31/23 History capsule aspirin 81 mg tablet,delayed 81 mg PO BID 01/31/23 01/31/23 History release bupropion HCl 150 mg 24 hr tablet, 150 mg PO DAILY 01/31/23 01/31/23 History extended release buspirone 10 mg tablet 10 mg PO BID 01/31/23 01/31/23 History cholecalciferol (vitamin D3) 25 25 mcg PO DAILY 01/31/23 01/31/23 History mcg (1,000 unit) capsule (Vitamin D3) duloxetine 60 mg capsule,delayed 60 mg PO QAM 01/31/23 01/31/23 History release empagliflozin 10 mg tablet 10 mg PO DAILY 01/31/23 01/31/23 History (Jardiance) insulin degludec 100 unit/mL (3 0 unit subcut DAILY PRN BLOOD 01/31/23 01/31/23 History mL) subcutaneous pen (Tresiba SUGER HIGHER THAN 200 FlexTouch U-100 insulin) metformin 500 mg tablet,extended 1,000 mg PO BID 01/31/23 01/31/23 History release 24 hr metoprolol succinate 25 mg 25 mg PO BID 01/31/23 01/31/23 History tablet,extended release 24 hr naloxone 4 mg/actuation nasal spray 1 spray intranasal DIRECTED 01/31/23 01/31/23 History nystatin 100,000 unit/gram topical 1 applic topical DAILY PRN Rash 01/31/23 01/31/23 History powder (Nyamy) Allergies Allergy/AdvReac Type Severity Reaction Status Date / Time adhesive Allergy Intermediate Contact Verified 01/31/23 18:10 dermatitis latex Allergy Mild RASH Verified 01/31/23 18:10 tramadol Allergy Unknown n/v Verified 01/31/23 18:10 Past Med/Surg History Medical History Bipolar 1 disorder, depressed Central retinal artery occlusion, left eye Closed left femoral fracture Diabetic peripheral neuropathy Hyperlipidemia Hypertension Ischemic cardiomyopathy Mood disorder Noncompliance Systolic congestive heart failure Type 2 diabetes mellitus Surgical History History of dental surgery S/P arthroscopic knee surgery Family History Other Cancer Diabetes Hypertension Social History Smoking Status: Former smoker Hx Alcohol Use: No Hx Substance Use: No Preferred Language: Armenian Communication Ability: Effective Current Living Situation: Family Feels Safe at Home: Yes Assistive Devices: Crutches Review of Systems A total of 10 systems reviewed and were otherwise negative Gastrointestinal: + nausea, + vomiting and + diarrhea/loose stools Physical Exam Vital Signs Vital Signs - 24 hr 01/31/23 17:48 01/31/23 17:07 01/31/23 18:32 Temperature 36.9 C Temperature Source Oral Pulse Rate 106 H 107 H 110 H Pulse Rhythm Regular Regular Pulse Strength Normal Respiratory Rate 18 19 Respiratory Effort / Characteristics Non-Labored Spontaneous Respiratory Depth Normal Respiratory Pattern Regular Blood Pressure 174/107 H Blood Pressure Mean 129 Blood Pressure Position Lying Pulse Oximetry 98 100 Oxygen Delivery Method Room Air Room Air Sepsis Recent Fever Within 48 Hours No Sepsis New/Unexplained Change in Mental Status N/A Sepsis Action Taken by Nursing No Action Required GENERAL: Patient is awake alert in no acute distress patient is resting comfortably and showing no signs of anxiety EYES: The conjunctivae are clear. The pupils are round and reactive. EARS, NOSE, MOUTH AND THROAT: The nose is without any evidence of any deformity. Mucous membranes are moist. Tongue is midline. NECK: The neck is nontender and supple. RESPIRATORY: Normal respiratory effort is noted there is no evidence of wheezing rhonchi or rales CARDIOVASCULAR: Regular rate and rhythm noted there no murmurs rubs or gallops normal S1 normal S2. GASTROINTESTINAL: The abdomen is soft. Abdomen is nontender. No rebound rigidity or guarding BACK: No midline tenderness or or step-off noted range of motion in flexion extension as well as rotation no signs of muscle spasm noted MUSCULOSKELETAL/EXTREMITIES: There is no evidence of gross deformity full range of motion is noted in the hips and shoulders. SKIN: There is no obvious evidence of any rash. There are no petechiae, pallor or cyanosis noted. NEUROLOGIC: Patient is awake alert and oriented x3 strength is symmetric Course Reevaluation(s) Reevaluation #1: Patient on my repeat examination states he still has some nausea he still feels dehydrated. He states that he lives with his parents and does not think that he is going to be able to take care of them and himself. Patient has no other complaints such as abdominal pain at this time. Time: 19:05 Consultations Consultation #1: Case was discussed with the [facility] at 1900 hrs. for admission Time: 19:06 Administered Medications Discontinued Medications Sodium Chloride (Nss 1000ml) 1,000 mls @ 999 mls/hr IV .Q1H1M MAE Stop: 01/31/23 18:45 Last Infusion: 01/31/23 18:48 Dose: 0 mls/hr Documented By: Admin: 01/31/23 17:43 Dose: 999 mls/hr Documented By: ERNESTO Ondansetron HCl (Ondansetron Inj 2 Mg/Ml 2 Ml Vial) 4 mg IV NOW STA Stop: 01/31/23 17:33 Last Admin: 01/31/23 17:43 Dose: 4 mg Documented By: ERNESTO Medical Decision Making Medical Records Attestation: I reviewed the patient's medical records. Home Medications Current Medication List: was personally reviewed by wi Laboratory Data Attestation: I reviewed the patient's lab results. Lab results interpreted by me patient has a leukocytosis he typically does have a leukocytosis on further review of his prior labs, patient has a an elevated BUN of 34 and a bicarb of 17 which are new in review of his old labs as well as hyperglycemia 01/31/23 17:38 01/31/23 17:38 Lab Results 01/31/23 01/31/23 01/31/23 Range/Units 17:37 17:38 17:38 WBC 14.34 H (4.8-10.8) K/ul RBC 4.77 (4.70-6.10) M/uL Hgb 13.8 L (14.0-18.0) g/dl Hct 40.5 L (42.0-52.0) % MCV 84.9 (80.0-100.0) fL MCH 28.9 (25.0-34.0) pg MCHC 34.1 (32.0-36.0) g/dL RDW Std Deviation 41.1 (36.4-46.3) fL RDW Coeff of Pancho 13.2 (11.5-14.5) % Plt Count 288 (130-400) K/uL MPV 10.9 (9.4-12.4) fL Immature Gran % (Auto) 0.7 % Neut % (Auto) 76.8 % Lymph % (Auto) 16.9 % [place] % (Auto) 4.7 % Eos % (Auto) 0.1 % Baso % (Auto) 0.8 % Neut # (Auto) 11.01 H (1.40-6.50) K/uL Lymph # (Auto) 2.43 (1.20-3.40) K/uL [place] # (Auto) 0.67 H (0.11-0.59) K/uL Eos # (Auto) 0.02 (0.00-0.50) K/uL Baso # (Auto) 0.11 (0.00-0.20) K/uL Immature Gran # (Auto) 0.10 (0.01-0.20) K/uL Sodium 136 (136-145) mmol/L Potassium 3.8 (3.5-5.1) mmol/L Chloride 100 (98-107) mmol/L Carbon Dioxide 17 L (21-32) mmol/L Anion Gap 19 H (3-11) BUN 34 H (6-23) mg/dl Creatinine 0.85 (0.6-1.4) mg/dl Est Cr Clr Drug Dosing 119.2 ml/min Est GFR ( Amer) 121.1 ml/min Est GFR (Non-Af Amer) 104.5 ml/min BUN/Creatinine Ratio 40.0 H (10-20) Glucose 226 H (70-99(Fasting)) mg/dl POC Glucose 196 H (70-99) mg/dl Calcium 9.0 (8.6-10.3) mg/dl Total Bilirubin 2.0 H (0.2-1.0) mg/dl AST 11 L (13-39) U/L ALT 10 (7-52) U/L Alkaline Phosphatase 104 (34-104) U/L Total Protein 7.0 (6.0-8.3) gm/dl Albumin 4.1 (3.4-5.0) gm/dl Globulin 2.9 (2.5-4.0) gm/dl Albumin/Globulin Ratio 1.4 (0.9-2) Lipase 26 (11-82) U/L Urine Color Urine Appearance (Clear) Urine pH (4.5-7.5) Ur Specific [place] (1.000-1.030) Urine Protein (Negative) Urine Glucose (UA) (Negative) Urine Ketones (Negative) Urine Blood (Negative) Urine Nitrite (Negative) Urine Bilirubin (Negative) Urine Urobilinogen (Negative) Ur Leukocyte Esterase (Negative) SARS-CoV-2, RNA, NAAT (NEGATIVE) 01/31/23 01/31/23 Range/Units 18:40 18:55 WBC (4.8-10.8) K/ul RBC (4.70-6.10) M/uL Hgb (14.0-18.0) g/dl Hct (42.0-52.0) % MCV (80.0-100.0) fL MCH (25.0-34.0) pg MCHC (32.0-36.0) g/dL RDW Std Deviation (36.4-46.3) fL RDW Coeff of Pancho (11.5-14.5) % Plt Count (130-400) K/uL MPV (9.4-12.4) fL Immature Gran % (Auto) % Neut % (Auto) % Lymph % (Auto) % [place] % (Auto) % Eos % (Auto) % Baso % (Auto) % Neut # (Auto) (1.40-6.50) K/uL Lymph # (Auto) (1.20-3.40) K/uL [place] # (Auto) (0.11-0.59) K/uL Eos # (Auto) (0.00-0.50) K/uL Baso # (Auto) (0.00-0.20) K/uL Immature Gran # (Auto) (0.01-0.20) K/uL Sodium (136-145) mmol/L Potassium (3.5-5.1) mmol/L Chloride (98-107) mmol/L Carbon Dioxide (21-32) mmol/L Anion Gap (3-11) BUN (6-23) mg/dl Creatinine (0.6-1.4) mg/dl Est Cr Clr Drug Dosing ml/min Est GFR ( Amer) ml/min Est GFR (Non-Af Amer) ml/min BUN/Creatinine Ratio (10-20) Glucose (70-99(Fasting)) mg/dl POC Glucose (70-99) mg/dl Calcium (8.6-10.3) mg/dl Total Bilirubin (0.2-1.0) mg/dl AST (13-39) U/L ALT (7-52) U/L Alkaline Phosphatase (34-104) U/L Total Protein (6.0-8.3) gm/dl Albumin (3.4-5.0) gm/dl Globulin (2.5-4.0) gm/dl Albumin/Globulin Ratio (0.9-2) Lipase (11-82) U/L Urine Color Yellow Urine Appearance Clear (Clear) Urine pH 5.5 (4.5-7.5) Ur Specific [place] 1.037 H (1.000-1.030) Urine Protein Negative (Negative) Urine Glucose (UA) 3+ H (Negative) Urine Ketones 3+ H (Negative) Urine Blood Negative (Negative) Urine Nitrite Negative (Negative) Urine Bilirubin Negative (Negative) Urine Urobilinogen Negative (Negative) Ur Leukocyte Esterase Negative (Negative) SARS-CoV-2, RNA, NAAT NEGATIVE (NEGATIVE) MDM Narrative Medical decision making differential diagnosis includes gastroenteritis, dehydration, electrolyte abnormality, viral syndrome, diabetic ketoacidosis, hyperglycemia Plan is to check labs, give IV fluids, Zofran External medical records were reviewed by me Patient was started on IV fluids patient has an elevated BUN patient has dehydra tion elevated blood sugar and anion gap however I do not the patient to be in diabetic ketoacidosis at this time Plan is to admit Impression & Plan Dehydration, Nausea vomiting and diarrhea, Acute hyperglycemia Discharge Plan Visit Data Chief Complaint: Illness ED Provider: Zach Murry Discharge Problem: Dehydration, Nausea vomiting and diarrhea, Acute hyperglycemia Patient Disposition: Admitted As Inpatient Forms Stand Alone Forms: My [facility] Prescriptions Prescriptions: No Action hydrocodone-acetaminophen 5-325 mg Tablet 1 tab PO Q4H PRN (Reason: pain) Qty: 10 0RF pantoprazole 40 mg Tablet,Delayed Release (Dr/Ec) 40 mg PO DAILY gabapentin 300 mg Capsule 300 mg PO TID montelukast 10 mg Tablet 10 mg PO DAILY Fiber Gummies with Vitamin D3 2,500 mg- 500 unit Tablet,Chewable 1 tab PO DAILY atorvastatin 40 mg Tablet 40 mg PO DAILY Qty: 30 0RF clopidogrel 75 mg tablet 75 mg PO DAILY Qty: 30 0RF buspirone 10 mg tablet 10 mg PO BID nystatin [Nyamyc] 100,000 unit/gram powder 1 applic TOPICAL DAILY PRN (Reason: Rash) metformin 500 mg tablet extended release 24 hr 1,000 mg PO BID cholecalciferol (vitamin D3) [Vitamin D3] 25 mcg (1,000 unit) capsule 25 mcg PO DAILY amlodipine-benazepril 10-20 mg capsule 1 cap PO DAILY bupropion HCl 150 mg tablet extended release 24 hr 150 mg PO DAILY duloxetine 60 mg capsule,delayed release(DR/EC) 60 mg PO QAM insulin degludec [Tresiba FlexTouch U-100] 100 unit/mL (3 mL) insulin pen 0 unit SUBCUT DAILY PRN (Reason: BLOOD SUGER HIGHER THAN 200) Rx Instructions: Pt doesn't remember the max unit he's allowed to inject Jardiance 10 mg tablet 10 mg PO DAILY naloxone 4 mg/actuation spray,non-aerosol 1 spray INTRANASAL DIRECTED aspirin 81 mg tablet,delayed release (DR/EC) 81 mg PO BID Rx Instructions: Twice a day x1 month then daily metoprolol succinate 25 mg tablet extended release 24 hr 25 mg PO BID Referrals Referrals: Ruben Gordillo MD [Primary Care Provider] -
[2023-01-31] MEDS ORDERED: SODIUM CHLORIDE 0.9% 1000ML 1,000 ML IV SCH (17:45)
[2023-01-31 17:53] LABS: Basophils # (auto) 0.11 K/uL (0.00-0.20); Basophils % (auto) 0.8 %; Eosinophils # (auto) 0.02 K/uL (0.00-0.50); Eosinophils % (auto) 0.1 %; Hematocrit (blood only) 40.5 % (42.0-52.0); Hemoglobin 13.8 g/dl (14.0-18.0); Immature Granulocytes % (auto) 0.7 %; Lymphocytes # (auto) 2.43 K/uL (1.20-3.40); Lymphocytes % (auto) 16.9 %; Mean Corpuscular Hemoglobin 28.9 pg (25.0-34.0); Mean Corpuscular Hgb Conc 34.1 g/dL (32.0-36.0); Mean Corpuscular Volume 84.9 fL (80.0-100.0); Mean Platelet Volume 10.9 fL (9.4-12.4); Monocytes # (auto) 0.67 K/uL (0.11-0.59); Monocytes % (auto) 4.7 %; Neutrophils # (auto) 11.01 K/uL (1.40-6.50); Neutrophils % (auto) 76.8 %; Platelet Count 288 K/uL (130-400); RDW Coefficient of Variation 13.2 % (11.5-14.5); RDW Standard Deviation 41.1 fL (36.4-46.3); Red Blood Count 4.77 M/uL (4.70-6.10); White Blood Count 14.34 K/ul (4.8-10.8)
[2023-01-31 18:14] LABS: Albumin Globulin Ratio 1.4 (0.9-2); Albumin Level 4.1 gm/dl (3.4-5.0); Creatinine Clr Calc Pharmacy 119.2 ml/min; Est GFR (African American) 121.1 ml/min; Est GFR (Non-African American) 104.5 ml/min; Globulin 2.9 gm/dl (2.5-4.0); Potassium 3.8 mmol/L (3.5-5.1)
[2023-01-31 19:23] LABS: Appearance Urine Clear (Clear); Bilirubin Urine Negative (Negative); Blood Urine Negative (Negative); Color Urine Yellow; Glucose Urine UA 3+ (Negative); Ketones Urine 3+ (Negative); Leukocyte Esterase Urine Negative (Negative); Nitrite Urine Negative (Negative); Protein Urine Negative (Negative); Specific Gravity Urine 1.037 (1.000-1.030); Urobilinogen Urine Negative (Negative); pH Urine 5.5 (4.5-7.5)
--- NOTE | 2023-01-31 19:32 | History & Physical Report ---
Date of Service January 31, 2023 Assessment & Plan (1) Nausea vomiting and diarrhea: (2) Dehydration: Plan: Patient is 47 y/o M with PMH HTN, dyslipidemia, CAD s/p stent, DM II, anxiety, bipolar disorder presented to ER with c/o N/V/D x 2 days. Denies fever/chills, abdominal pain In ER afebrile, P: 107, RR: 18, BP 174/107, 98% on room air WBC: 14. (Baseline WBC 14-16), BUN: 34,Cr: 0.8, T. bili: 2.0 (baseline 1.5 per chart review), AST ALT alk phos without elevation In ER given 1L NSS, Zofran without any recurrent vomiting and reported improved nausea DDx: Gastroenteritis, cholecystitis Continue gentle IVF Antiemetics as needed Stool cultures, C. difficile if recurrent diarrhea Clear liquid diet as tolerated Patient without abdominal pain and no pain on palpation. RUQ ultrasound pending to rule out cholecystitis, choledocholithiasis with elevated T. bili, however is chronically elevated If would develop abdominal pain consider further abdominal imaging CBC, CMP in a.m. (3) Sinus tachycardia: Plan: EKG: Sinus tachycardia, rate [address] changes per my interpretation Sinus tachycardia likely secondary to dehydration and missed beta-blockers IV fluids and resuming beta-blockers as above Monitor on telemetry (4) Hyperglycemia: (5) Type 2 diabetes mellitus: Plan: Random glucose: 226 A1c: 7.3 on 12/29/2022 Hold home Jardiance metformin Basal bolus insulin per protocol (6) Hypertension: Plan: Hypertensive in ER. Has missed medications for 2 days Resume home amlodipine, enalapril, metoprolol succinate (7) Hyperlipidemia: Plan: Continue atorvastatin (8) CAD (coronary artery disease): Plan: S/p POLY x2 in 06/2022 History systolic heart failure Echo 12/29/2022: EF: 65-70%, grade 1 diastolic dysfunction Continue aspirin, Plavix, metoprolol succinate Monitor volume status, currently dehydrated (9) Bipolar 1 disorder, depressed: (10) Mood disorder: Plan: Continue duloxetine, bupropion, buspirone DVT Prophylaxis SCDs Full Code as per discussion with pt Follows with Dr Gordillo for routine care Pt was seen and care coordinated with Dr Damon. See addendum (11) Metabolic acidosis: History of Present Illness Chief Complaint: N/V/D Primary Care Provider: Ruben Gordillo MD Patient is 47 y/o M with PMH HTN, dyslipidemia, CAD s/p stent, DM II, anxiety, bipolar disorder presented to ER with c/o N/V/D x 2 days. History obtained from patient as well as inpatient and outpatient chart review states onset of nausea 2 days ago with numerous episodes vomiting. Describes emesis as yellowish in coloration. When tried to drink would vomit. Didn't take medications for 2 days secondary to nausea and fear of vomiting. 2 episodes watery diarrhea reported. Denies hematemesis, abdominal pain. Denies prior food intolerances, indigestion. States been on Jardiance for 2-3 months. Denies ill contacts, recent travel, eating undercooked foods. Denies fever/chills, diaphoresis, SMART, dizziness, recent syncope, vision changes, neck pain, CP, SOB, palpitations, cough, sore throat, choking, otalgia, rhinorrhea, paresthesias, weakness, extremity edema, rashes, urinary symptoms. History left femoral fracture s/p repair 12/2022. Denied ETOH or drug use to this provider. Allergies Allergy/AdvReac Type Severity Reaction Status Date / Time adhesive Allergy Intermediate Contact Verified 01/31/23 18:10 dermatitis latex Allergy Mild RASH Verified 01/31/23 18:10 tramadol Allergy Unknown n/v Verified 01/31/23 18:10 Home Medications Medication Instructions Recorded Confirmed Type gabapentin 300 mg capsule 300 mg PO TID 06/16/22 01/31/23 History inulin 2,500 mg-vitamin D3 500 1 tab PO DAILY 06/16/22 01/31/23 History unit chewable tablet (Fiber Gummies with Vitamin D3) montelukast 10 mg tablet 10 mg PO DAILY 06/16/22 01/31/23 History pantoprazole 40 mg tablet,delayed 40 mg PO DAILY 06/16/22 01/31/23 History release atorvastatin 40 mg tablet 40 mg PO DAILY #30 tabs 06/17/22 01/31/23 Rx clopidogrel 75 mg tablet 75 mg PO DAILY #30 tabs 06/17/22 01/31/23 Rx hydrocodone 5 mg-acetaminophen 325 1 tab PO Q4H PRN pain #10 tabs 01/01/23 01/31/23 Rx mg tablet amlodipine 10 mg-benazepril 20 mg 1 cap PO DAILY 01/31/23 01/31/23 History capsule aspirin 81 mg tablet,delayed 81 mg PO BID 01/31/23 01/31/23 History release bupropion HCl 150 mg 24 hr tablet, 150 mg PO DAILY 01/31/23 01/31/23 History extended release buspirone 10 mg tablet 10 mg PO BID 01/31/23 01/31/23 History cholecalciferol (vitamin D3) 25 25 mcg PO DAILY 01/31/23 01/31/23 History mcg (1,000 unit) capsule (Vitamin D3) duloxetine 60 mg capsule,delayed 60 mg PO QAM 01/31/23 01/31/23 History release empagliflozin 10 mg tablet 10 mg PO DAILY 01/31/23 01/31/23 History (Jardiance) insulin degludec 100 unit/mL (3 0 unit subcut DAILY PRN BLOOD 01/31/23 01/31/23 History mL) subcutaneous pen (Tresiba SUGER HIGHER THAN 200 FlexTouch U-100 insulin) metformin 500 mg tablet,extended 1,000 mg PO BID 01/31/23 01/31/23 History release 24 hr metoprolol succinate 25 mg 25 mg PO BID 01/31/23 01/31/23 History tablet,extended release 24 hr naloxone 4 mg/actuation nasal spray 1 spray intranasal DIRECTED 01/31/23 01/31/23 History nystatin 100,000 unit/gram topical 1 applic topical DAILY PRN Rash 01/31/23 01/31/23 [facility] Past Med/Surg History Medical History Bipolar 1 disorder, depressed Central retinal artery occlusion, left eye Closed left femoral fracture Diabetic peripheral neuropathy Hyperlipidemia Hypertension Ischemic cardiomyopathy Mood disorder Noncompliance Systolic congestive heart failure Type 2 diabetes mellitus Surgical History History of dental surgery S/P arthroscopic knee surgery Family History Other Cancer Diabetes Hypertension Social History Smoking Status: Former smoker Hx Alcohol Use: No Hx Substance Use: No Preferred Language: Montserratian Communication Ability: Effective Current Living Situation: Family Feels Safe at Home: Yes Assistive Devices: Crutches Review of Systems Review of Systems: All systems reviewed & are unremarkable except as noted in HPI & below Physical Exam Physical Exam: General: no distress, WDWN Head: normocephalic, atraumatic Eyes: PERRL, EOM's intact, conjunctiva non-injected, anicteric ENT: normal inspection external ears, nose, mucous membranes dry Neck: supple, trachea midline, non-tender Lungs: clear, no respiratory distress, no wheezing/rhonchi/rales CV: +tachycardia, regular rhythm, rate 116, no murmur, no pretibial edema Abd: normal BS, soft, non-tender to palpation Ext: no cyanosis, no calf tenderness Neuro: A&O x 3, no focal deficits noted, normal affect Skin: warm, dry Results & Data Results & Data Vital Signs (Past 12 Hours) Vital Signs Temp Pulse Resp BP Pulse Ox O2 Del Method 01/31/23 18:32 110 H 19 100 Room Air 01/31/23 17:07 36.9 C 107 H 18 174/107 H 98 Room Air 01/31/23 17:48 106 H Laboratory Results Short CBC 01/31/23 Range/Units 17:38 WBC 14.34 H (4.8-10.8) K/ul Hgb 13.8 L (14.0-18.0) g/dl Hct 40.5 L (42.0-52.0) % Plt Count 288 (130-400) K/uL BMP 01/31/23 17:38 Sodium 136 Potassium 3.8 Chloride 100 Carbon Dioxide 17 L BUN 34 H Creatinine 0.85 Glucose 226 H Calcium 9.0 Liver Function 01/31/23 Range/Units 17:38 Total Bilirubin 2.0 H (0.2-1.0) mg/dl AST 11 L (13-39) U/L ALT 10 (7-52) U/L Alkaline Phosphatase 104 (34-104) U/L Albumin 4.1 (3.4-5.0) gm/dl Urine 01/31/23 Range/Units 18:55 Urine Color Yellow Urine Appearance Clear (Clear) Urine pH 5.5 (4.5-7.5) Ur Specific [place] 1.037 H (1.000-1.030) Urine Protein Negative (Negative) Urine Glucose (UA) 3+ H (Negative) Supervising Physician Co-Signing Physician Notes I have seen and examined the patient and have discussed the case with the provider above. I agree with the assessment and plan as stated. Patient is a 47-year-old man presenting with nausea vomiting and diarrhea for 2 days. He reports smoking medical marijuana and states he has been vomiting like this once a month. He has not smoked medical marijuana in approximately 1 month since he had his hip surgery. He is still ambulating with his walker. He also reports intermittent syncopal episodes that are possibly related to positional change. He denies any abdominal pain and physical exam reveals a well-nourished well-developed adult man in no acute distress. Intermittent dry heaves are present with no bilious or bloody vomiting noted. Abdomen is soft nontender nondistended. Lungs are clear to auscultation bilaterally. Work-up in the ER today reveals a mild leukocytosis of 14 K, normal H&H of 13.8/40.5. Chemistry panel reveals a high anion gap metabolic acidosis. Evidence of dehydration present with BUN of 34 creatinine of 0.85. Glucose is elevated to 26. He has a mildly elevated total bili of 2.0 with normal LFTs. Urinalysis reveals no evidence of infection with glucosuria and ketonuria. Serum osm, blood pH, lactate, salicylate level, APAP level, and urine tox screen are pending. This was signed out to trade analyst provider to follow-up on. Acute GI symptoms may be multifactorial inclduing viral vs cannabis use vs other. There is no evidence of obstructive jaundice or concerning abdominal findings at this point. There is no evidence of sepsis. Agree [facility] supportive therapies, stool studies as needed for ongoing diarrhea, and rehydration efforts. This will likely fix the acidosis. Although screening for intoxication, he doesn't appear altered or intoxicated at thist delilah and is mentaitng clearly and breathing normally making this low likelihood. Nelson,
[2023-01-31] MEDS ORDERED: METOPROLOL SUCC 25MG EXT REL TAB PO STA (19:48)
[2023-01-31] MEDS ORDERED: amLODIPine BESYLATE 5 MG TAB PO ONE (19:48)
[2023-01-31] MEDS ORDERED: PROMETHAZINE HCL 25 MG in SODIUM CHLORIDE 0.9% 50 ML IV STA (20:26)
[2023-01-31] MEDS ORDERED: FAMOTIDINE 20 MG in SYRINGE 3 ML IV ONE (20:45)
[2023-01-31] MEDS ORDERED: ENALAPRIL MALEATE 5 MG TAB PO STA (21:09)
[2023-01-31 21:32] LABS: Base Excess VBG -4.8 mEq/L; HCO3 VBG 20 mmol/L; Oxygen Saturation VBG < 60.0 %; PCO2 VBG 34 mmHg (38-50); PO2 VBG 28 mmHg; pH VBG 7.37 (7.36-7.41)
[2023-01-31 21:44] LABS: Acetaminophen < 3 ug/ml (10-30); Salicylate < 3.0 mg/dl (3.0-30)
[2023-01-31 21:51] LABS: Amphetamines+Metham, Urine Neg (Neg); Barbiturates, Urine Neg (Neg); Benzodiazepine, Urine Pos (Neg); Cocaine, Urine Neg (Neg); MDMA (Ecstacy), Urine Pos (Neg); Methadone, Urine Neg (Neg); Opiate, Urine Neg (Neg); Phencyclidine, Urine Neg (Neg)
[2023-01-31] MEDS ORDERED: GLUCOSE 10 TAB/TUBE PO PRN (22:46)
[2023-01-31] MEDS ORDERED: GLUCAGON FOR INJ 1 MG VIAL SQ PRN (22:46)
[2023-01-31] MEDS ORDERED: GLUCOSE 40% GEL 15 GM TUBE PO PRN (22:46)
[2023-01-31] MEDS ORDERED: DEXTROSE 50% 50 ML SYRINGE IV PRN (22:46)
[2023-01-31] MEDS ORDERED: ACETAMINOPHEN 325 MG TAB PO PRN (22:46)
[2023-01-31] MEDS ORDERED: PROMETHAZINE HCL 12.5 MG in SODIUM CHLORIDE 0.9% 50 ML IV PRN (22:46)
[2023-01-31] MEDS ORDERED: CARBOHYDRATES FOR HYPOGLYCEMIA PO PRN (22:46)
[2023-01-31] MEDS ORDERED: SODIUM CHLOR 0.45% + 20MEQ KCL 20 MEQ/1,000 ML BAG IV SCH (23:00)
[2023-01-31] MEDS: ASPIRIN 81 MG ECTAB PO SCH (23:13)
[2023-01-31] MEDS: INSULIN ASPART PER UNIT CHARGE SC SCH (23:13)
[2023-01-31] MEDS: GABAPENTIN 300 MG CAP PO SCH (23:13)
[2023-01-31] MEDS: busPIRone 5 MG TAB PO SCH (23:13)
[2023-01-31] MEDS: LANTUS PER UNIT CHARGE SQ SCH (23:14)
--- NOTE | 2023-02-01 01:26 | Ultrasound Report ---
Exam(s): US LIVER EXAM: US Abdomen Limited, Right Upper Quadrant CLINICAL HISTORY: Reason for exam: n/v, elevated bili r/o issa/stone. TECHNIQUE: Real-time ultrasound of the right upper quadrant with image documentation. COMPARISON: No relevant prior studies available. FINDINGS: Liver: Unremarkable. No mass. No intrahepatic bile duct dilation. Gallbladder: Gallbladder stones. No wall thickening or pericholecystic fluid. Common bile duct: Common bile duct 2 mm. No stones. No dilation. Pancreas: Pancreas not visualized due to overlying bowel gas. Right kidney: 6 mm right renal cyst. No stones. No hydronephrosis. IMPRESSION: Cholelithiasis without evidence of acute cholecystitis. Electronically signed by: Seema Shukla M.D. 02/01/23 01:25 AM
[2023-02-01 07:08] LABS: Hematocrit (blood only) 35.3 % (42.0-52.0); Hemoglobin 11.9 g/dl (14.0-18.0); Mean Corpuscular Hemoglobin 28.5 pg (25.0-34.0); Mean Corpuscular Hgb Conc 33.7 g/dL (32.0-36.0); Mean Corpuscular Volume 84.4 fL (80.0-100.0); Mean Platelet Volume 10.7 fL (9.4-12.4); Platelet Count 253 K/uL (130-400); RDW Coefficient of Variation 13.4 % (11.5-14.5); RDW Standard Deviation 41.6 fL (36.4-46.3); Red Blood Count 4.18 M/uL (4.70-6.10); White Blood Count 13.64 K/ul (4.8-10.8)
[2023-02-01 07:34] LABS: Albumin Globulin Ratio 1.5 (0.9-2); Albumin Level 3.7 gm/dl (3.4-5.0); BUN Creatinine Ratio 27.6 (10-20); Bilirubin,Total 1.8 mg/dl (0.2-1.0); Calcium 8.5 mg/dl (8.6-10.3); Creatinine Clr Calc Pharmacy 128.3 ml/min; Est GFR (Non-African American) 103.5 ml/min; Globulin 2.5 gm/dl (2.5-4.0); Potassium 3.8 mmol/L (3.5-5.1); Total Protein 6.2 gm/dl (6.0-8.3)
[2023-02-01 07:35] LABS: Acanthocytes 1+; Basophils # (auto) 0.19 K/uL (0.00-0.20); Basophils % (auto) 1.4 %; Eosinophils # (auto) 0.27 K/uL (0.00-0.50); Immature Granulocytes # (auto) 0.06 K/uL (0.01-0.20); Immature Granulocytes % (auto) 0.4 %; Lymphocytes # (auto) 5.66 K/uL (1.20-3.40); Lymphocytes % (auto) 41.5 %; Monocytes # (auto) 1.62 K/uL (0.11-0.59); Monocytes % (auto) 11.9 %; Neutrophils # (auto) 5.84 K/uL (1.40-6.50); Neutrophils % (auto) 42.8 %
[2023-02-01] MEDS: INSULIN ASPART PER UNIT CHARGE SC SCH ×4 (09:41→21:33)
[2023-02-01] MEDS: ASPIRIN 81 MG ECTAB PO SCH ×2 (09:42→21:00)
[2023-02-01] MEDS: ATORVASTATIN 40 MG TAB PO SCH (09:42)
[2023-02-01] MEDS: CLOPIDOGREL BISULFATE 75 MG TAB PO SCH (09:43)
[2023-02-01] MEDS: GABAPENTIN 300 MG CAP PO SCH ×3 (09:43→21:31)
[2023-02-01] MEDS: DULoxetine HCL 60 MG CAP PO SCH (09:43)
[2023-02-01] MEDS: ENALAPRIL MALEATE 10 MG TAB PO SCH (09:43)
[2023-02-01] MEDS: PANTOprazole 40 MG TAB PO SCH (09:44)
[2023-02-01] MEDS: METOPROLOL SUCC 25MG EXT REL TAB PO SCH ×2 (09:44→21:00)
[2023-02-01] MEDS: amLODIPine BESYLATE 5 MG TAB PO SCH (09:44)
[2023-02-01] MEDS: MONTELUKAST SODIUM 10 MG TABLET PO SCH (09:44)
[2023-02-01] MEDS: buPROPion XL 150 MG TABCR PO SCH (09:44)
[2023-02-01] MEDS: busPIRone 5 MG TAB PO SCH ×2 (09:45→21:01)
[2023-02-01] MEDS: LANTUS PER UNIT CHARGE SQ SCH ×2 (09:53→21:33)
--- NOTE | 2023-02-01 16:50 | Hospitalist Progress Note ---
Date of Service February 01, 2023 Assessment & Plan (1) Nausea vomiting and diarrhea: (2) Dehydration: Plan: Patient is a 47 yr male with H/O HTN, dyslipidemia, CAD s/p stent, DM II, anxiety, bipolar disorder presented to ER with c/o N/V/D x 2 days. Denies fever/chills, abdominal pain Nausea, vomiting, diarrhea DDx: Gastroenteritis Vs marijuana use Toxicology screen positive for benzodiazepines, marijuana Stool studies pending Continue IV fluids as needed Advance diet as tolerated Hold antibiotics for now Needs abstinence from drug use Cholelithiasis -Liver USD:Cholelithiasis without evidence of acute cholecystitis. Normal LFTs Denies any abdominal pain Chronic leukocytosis Elevated lymphocytes, monocytes on differential Check peripheral smear Drug abuse Continuous Improvement Intern to quit marijuana use Mood Disorder Continue home meds (3) Sinus tachycardia: Plan: Missed metoprolol due to nausea, vomiting Resume metoprolol Monitor (4) Hyperglycemia: (5) Type 2 diabetes mellitus: Plan: Random glucose: 226 A1c: 7.3 on 12/29/2022 Hold home Jardiance metformin Continue insulin while hospitalized Monitor blood glucose levels (6) Hypertension: Plan: Hypertensive in ER. Has missed medications for 2 days Resume amlodipine, enalapril, metoprolol succinate Monitor BP (7) Hyperlipidemia: Plan: Continue atorvastatin (8) CAD (coronary artery disease): Plan: S/p POLY x2 in 06/2022 History systolic heart failure Echo 12/29/2022: EF: 65-70%, grade 1 diastolic dysfunction Continue aspirin, Plavix, metoprolol succinate (9) Bipolar 1 disorder, depressed: (10) Mood disorder: Plan: Continue duloxetine, bupropion, buspirone DVT Px SCDs for now Encouraged to ambulate CODE STATUS Full Code (11) Metabolic acidosis: Admission and Anticipated Discharge Date Admission Date: January 31, 2023 Subjective Patient is seen and examined at bedside Nausea, vomiting, diarrhea resolved Denies any abdominal pain, dizziness, chest pain, dyspnea Tolerating current diet No other complaints Review of Systems Review of Systems: All systems reviewed & are unremarkable except as noted in Subjective Physical Exam Physical Exam: Physical Exam: Vitals signs as noted above General Appearance:Moderately built and nourished, no apparent distress Head: normocephalic, Atraumatic Eyes: normal inspection, EOMI Neck: supple, Trachea midline Respiratory/Chest: Normal breath sounds, CTA, No accessory muscle use Cardiovascular: S1, S2, No murmur Abdomen/GI:Soft, Non tender, Bowel sounds present Extremities/Musculoskeletal:normal inspection, no edema Neurologic/Psych:AAOX3, grossly no focal neurological deficits Skin: normal color, warm,+ multiple tattoos Results & Data Results & Data Vital Signs (Past 12 Hours) Vital Signs Temp Pulse Pulse Resp BP Pulse Ox O2 Del Method 02/01/23 15:42 85 02/01/23 15:16 36.7 C 88 16 119/79 99 Room Air 02/01/23 11:18 37.4 C 87 16 112/61 98 Room Air 02/01/23 10:06 93 H 02/01/23 07:30 37.4 C 83 16 155/94 H 97 Room Air Laboratory Results Short CBC 01/31/23 02/01/23 Range/Units 17:38 06:32 WBC 14.34 H 13.64 H (4.8-10.8) K/ul Hgb 13.8 L 11.9 L (14.0-18.0) g/dl Hct 40.5 L 35.3 L (42.0-52.0) % Plt Count 288 253 (130-400) K/uL BMP 01/31/23 02/01/23 17:38 06:32 Sodium 136 137 Potassium 3.8 3.8 Chloride 100 105 Carbon Dioxide 17 L 27 BUN 34 H 24 H Creatinine 0.85 0.87 Glucose 226 H 154 H Calcium 9.0 8.5 L Liver Function 01/31/23 02/01/23 Range/Units 17:38 06:32 Total Bilirubin 2.0 H 1.8 H (0.2-1.0) mg/dl AST 11 L 10 L (13-39) U/L ALT 10 8 (7-52) U/L Alkaline Phosphatase 104 86 (34-104) U/L Albumin 4.1 3.7 (3.4-5.0) gm/dl Urine 01/31/23 Range/Units 18:55 Urine Color Yellow Urine Appearance Clear (Clear) Urine pH 5.5 (4.5-7.5) Ur Specific [place] 1.037 H (1.000-1.030) Urine Protein Negative (Negative) Urine Glucose (UA) 3+ H (Negative)
--- NOTE | 2023-02-01 21:57 | Electrocardiogram Report ---
Test Reason : Blood Pressure : / mmHG Vent. Rate : 114 BPM Atrial Rate : 114 BPM P-R Int : 156 ms QRS Dur : 086 ms QT Int : 346 ms P-R-T Axes : 027 004 071 degrees QTc Int : 476 ms Sinus tachycardia Otherwise normal ECG When compared with ECG of 28-DEC-2022 11:31, No significant change was found Confirmed by Erwin Boggs ([id number]) on 02/01/2023 9:57:05 PM Referred By: REFERRED SELF Confirmed By:Erwin Boggs
[2023-02-02 06:36] LABS: Hematocrit (blood only) 37.3 % (42.0-52.0); Hemoglobin 12.8 g/dl (14.0-18.0); Mean Corpuscular Hemoglobin 28.4 pg (25.0-34.0); Mean Corpuscular Hgb Conc 34.3 g/dL (32.0-36.0); Mean Corpuscular Volume 82.7 fL (80.0-100.0); Platelet Count 271 K/uL (130-400); RDW Coefficient of Variation 13.2 % (11.5-14.5); RDW Standard Deviation 39.8 fL (36.4-46.3); Red Blood Count 4.51 M/uL (4.70-6.10); White Blood Count 12.46 K/ul (4.8-10.8)
[2023-02-02 06:58] LABS: BUN Creatinine Ratio 22.5 (10-20); Calcium 9.3 mg/dl (8.6-10.3); Creatinine Clr Calc Pharmacy 138.7 ml/min; Est GFR (African American) 124.2 ml/min; Est GFR (Non-African American) 107.1 ml/min; Magnesium 1.8 mg/dl (1.7-2.4); Potassium 3.9 mmol/L (3.5-5.1)
[2023-02-02] MEDS: busPIRone 5 MG TAB PO SCH (09:01)
[2023-02-02] MEDS: amLODIPine BESYLATE 5 MG TAB PO SCH (09:01)
[2023-02-02] MEDS: GABAPENTIN 300 MG CAP PO SCH ×2 (09:01→13:00)
[2023-02-02] MEDS: MONTELUKAST SODIUM 10 MG TABLET PO SCH (09:02)
[2023-02-02] MEDS: buPROPion XL 150 MG TABCR PO SCH (09:03)
[2023-02-02] MEDS: ASPIRIN 81 MG ECTAB PO SCH (09:03)
[2023-02-02] MEDS: CLOPIDOGREL BISULFATE 75 MG TAB PO SCH (09:03)
[2023-02-02] MEDS: DULoxetine HCL 60 MG CAP PO SCH (09:03)
[2023-02-02] MEDS: METOPROLOL SUCC 25MG EXT REL TAB PO SCH (09:03)
[2023-02-02] MEDS: ATORVASTATIN 40 MG TAB PO SCH (09:03)
[2023-02-02] MEDS: PANTOprazole 40 MG TAB PO SCH (09:03)
[2023-02-02] MEDS: ENALAPRIL MALEATE 10 MG TAB PO SCH (09:04)
[2023-02-02] MEDS: INSULIN ASPART PER UNIT CHARGE SC SCH ×2 (09:14→12:59)
[2023-02-02] MEDS: LANTUS PER UNIT CHARGE SQ SCH (09:15)
[2023-02-02] MEDS ORDERED: hydrALAZINE HCL 20 MG/ML VIAL IV PRN (09:41)
--- NOTE | 2023-02-02 12:33 | Hospitalist Progress Note ---
Date of Service February 02, 2023 Assessment & Plan (1) Nausea vomiting and diarrhea: (2) Dehydration: Plan: Patient is a 47 yr male with H/O HTN, dyslipidemia, CAD s/p stent, DM II, anxiety, bipolar disorder presented to ER with c/o N/V/D x 2 days. Denies fever/chills, abdominal pain Nausea, vomiting, diarrhea DDx: Gastroenteritis Vs marijuana use Toxicology screen positive for benzodiazepines, marijuana Stool studies pending Continue IV fluids as needed Hold antibiotics for now Needs abstinence from drug use GI symptoms resolved Tolerated regular diet Plan to discharge home today Cholelithiasis -Liver USD:Cholelithiasis without evidence of acute cholecystitis. Normal LFTs Denies any abdominal pain Chronic leukocytosis Elevated lymphocytes, monocytes on differential Peripheral smear reviewed Flow cytometry testing pending Advised to follow-up with oncology as outpatient Drug abuse Sec Accountant to quit marijuana use Mood Disorder Continue home meds (3) Sinus tachycardia: Plan: Missed metoprolol due to nausea, vomiting Resume metoprolol Monitor (4) Hyperglycemia: (5) Type 2 diabetes mellitus: Plan: Random glucose: 226 A1c: 7.3 on 12/29/2022 Hold home Jardiance metformin Continue insulin while hospitalized Monitor blood glucose levels (6) Hypertension: Plan: Hypertensive in ER. Has missed medications for 2 days Resumed amlodipine, enalapril, metoprolol succinate Monitor BP (7) Hyperlipidemia: Plan: Continue atorvastatin (8) CAD (coronary artery disease): Plan: S/p POLY x2 in 06/2022 History systolic heart failure Echo 12/29/2022: EF: 65-70%, grade 1 diastolic dysfunction Continue aspirin, Plavix, metoprolol succinate (9) Bipolar 1 disorder, depressed: (10) Mood disorder: Plan: Continue duloxetine, bupropion, buspirone DVT Px SCDs for now Encouraged to ambulate CODE STATUS Full Code (11) Metabolic acidosis: Admission and Anticipated Discharge Date Admission Date: January 31, 2023 Subjective Patient is seen and examined at bedside States feeling well today No new complaints No recurrence of Nausea, vomiting, diarrhea Tolerated regular diet Denies any abdominal pain, dizziness, chest pain, dyspnea Plan to discharge home Review of Systems Review of Systems: All systems reviewed & are unremarkable except as noted in Subjective Physical Exam Physical Exam: Physical Exam: Vitals signs as noted above General Appearance:Moderately built and nourished, no apparent distress Head: normocephalic, Atraumatic Eyes: normal inspection, EOMI Neck: supple, Trachea midline Respiratory/Chest: Normal breath sounds, CTA, No accessory muscle use Cardiovascular: S1, S2, No murmur Abdomen/GI:Soft, Non tender, Bowel sounds present Extremities/Musculoskeletal:normal inspection, no edema Neurologic/Psych:AAOX3, grossly no focal neurological deficits Skin: normal color, warm,+ multiple tattoos Results & Data Results & Data Vital Signs (Past 12 Hours) Vital Signs Temp Pulse Resp BP Pulse Ox O2 Del Method 02/02/23 11:10 36.9 C 83 18 142/96 H 100 Room Air 02/02/23 07:36 36.7 C 81 18 173/116 H 99 Room Air 02/02/23 04:51 36.7 C 84 20 157/106 H 98 Room Air Laboratory Results Short CBC 02/02/23 Range/Units 05:59 WBC 12.46 H (4.8-10.8) K/ul Hgb 12.8 L (14.0-18.0) g/dl Hct 37.3 L (42.0-52.0) % Plt Count 271 (130-400) K/uL BMP 02/02/23 05:59 Sodium 138 Potassium 3.9 Chloride 105 Carbon Dioxide 27 BUN 18 Creatinine 0.80 Glucose 160 H Calcium 9.3
--- NOTE | 2023-02-02 12:38 | Discharge Summary ---
Date of Service February 02, 2023 Admission HPI Per Admitting Provider Patient is 47 y/o M with PMH HTN, dyslipidemia, CAD s/p stent, DM II, anxiety, bipolar disorder presented to ER with c/o N/V/D x 2 days. History obtained from patient as well as inpatient and outpatient chart review states onset of nausea 2 days ago with numerous episodes vomiting. Describes emesis as yellowish in coloration. When tried to drink would vomit. Didn't take medications for 2 days secondary to nausea and fear of vomiting. 2 episodes watery diarrhea reported. Denies hematemesis, abdominal pain. Denies prior food intolerances, indigestion. States been on Jardiance for 2-3 months. Denies ill contacts, recent travel, eating undercooked foods. Denies fever/chills, diaphoresis, SMART, dizziness, recent syncope, vision changes, neck pain, CP, SOB, palpitations, cough, sore throat, choking, otalgia, rhinorrhea, paresthesias, weakness, extremity edema, rashes, urinary symptoms. History left femoral fracture s/p repair 12/2022. Denied ETOH or drug use to this provider. Principal Diagnosis Nausea, vomiting, diarrhea Elevated white blood cell count Marijuana use Discharge Exam General: no distress, WDWN Head: normocephalic, atraumatic Eyes: PERRL, EOM's intact, conjunctiva non-injected, anicteric ENT: normal inspection external ears, nose, mucous membranes dry Neck: supple, trachea midline, non-tender Lungs: clear, no respiratory distress, no wheezing/rhonchi/rales CV: +tachycardia, regular rhythm, rate 116, no murmur, no pretibial edema Abd: normal BS, soft, non-tender to palpation Ext: no cyanosis, no calf tenderness Neuro: A&O x 3, no focal deficits noted, normal affect Skin: warm, dry Discharge Data Allergies Allergy/AdvReac Type Severity Reaction Status Date / Time adhesive Allergy Intermediate Contact Verified 01/31/23 18:10 dermatitis latex Allergy Mild RASH Verified 01/31/23 18:10 tramadol Allergy Unknown n/v Verified 01/31/23 18:10 Consultations 01/31/23 19:04 ED Decision to Admit Stat Procedures Performed Laboratory Results WBC 12.46 K/ul (4.8-10.8) H 02/02/23 05:59 RBC 4.51 M/uL (4.70-6.10) L 02/02/23 05:59 Hgb 12.8 g/dl (14.0-18.0) L 02/02/23 05:59 Hct 37.3 % (42.0-52.0) L 02/02/23 05:59 MCV 82.7 fL (80.0-100.0) 02/02/23 05:59 MCH 28.4 pg (25.0-34.0) 02/02/23 05:59 MCHC 34.3 g/dL (32.0-36.0) 02/02/23 05:59 RDW Std Deviation 39.8 fL (36.4-46.3) 02/02/23 05:59 RDW Coeff of [place] 13.2 % (11.5-14.5) 02/02/23 05:59 Plt Count 271 K/uL (130-400) 02/02/23 05:59 MPV 11.0 fL (9.4-12.4) 02/02/23 05:59 Immature Gran % (Auto) 0.4 % 02/01/23 06:32 Neut % (Auto) 42.8 % 02/01/23 06:32 Lymph % (Auto) 41.5 % 02/01/23 06:32 [place] % (Auto) 11.9 % 02/01/23 06:32 Eos % (Auto) 2.0 % 02/01/23 06:32 Baso % (Auto) 1.4 % 02/01/23 06:32 Neut # (Auto) 5.84 K/uL (1.40-6.50) 02/01/23 06:32 Lymph # (Auto) 5.66 K/uL (1.20-3.40) H 02/01/23 06:32 [place] # (Auto) 1.62 K/uL (0.11-0.59) H 02/01/23 06:32 Eos # (Auto) 0.27 K/uL (0.00-0.50) 02/01/23 06:32 Baso # (Auto) 0.19 K/uL (0.00-0.20) 02/01/23 06:32 Immature Gran # (Auto) 0.06 K/uL (0.01-0.20) 02/01/23 06:32 Acanthocytes (Spur) 1+ 02/01/23 06:32 Peripher Smr Path Cons 02/02/23 05:59 VBG pH 7.37 (7.36-7.41) 01/31/23 21:03 VBG pCO2 34 mmHg (38-50) L 01/31/23 21:03 VBG pO2 28 mmHg 01/31/23 21:03 VBG HCO3 20 mmol/L 01/31/23 21:03 VBG O2 Saturation < 60.0 % 01/31/23 21:03 VBG Base Excess -4.8 mEq/L 01/31/23 21:03 Sodium 138 mmol/L (136-145) 02/02/23 05:59 Potassium 3.9 mmol/L (3.5-5.1) 02/02/23 05:59 Chloride 105 mmol/L (98-107) 02/02/23 05:59 Carbon Dioxide 27 mmol/L (21-32) 02/02/23 05:59 Anion Gap 6 (3-11) 02/02/23 05:59 BUN 18 mg/dl (6-23) 02/02/23 05:59 Creatinine 0.80 mg/dl (0.6-1.4) 02/02/23 05:59 Est Cr Clr Drug Dosing 138.7 ml/min 02/02/23 05:59 Est GFR ( Amer) 124.2 ml/min 02/02/23 05:59 Est GFR (Non-Af Amer) 107.1 ml/min 02/02/23 05:59 BUN/Creatinine Ratio 22.5 (10-20) H 02/02/23 05:59 Glucose 160 mg/dl (70-99(Fasting)) H 02/02/23 05:59 POC Glucose 125 mg/dl (70-99) H 02/02/23 11:56 Osmolality 296 mOsm/kg (280-300) 01/31/23 21:03 Lactate 1.4 mmol/L (0.4-2.0) 01/31/23 21:03 Calcium 9.3 mg/dl (8.6-10.3) 02/02/23 05:59 Magnesium 1.8 mg/dl (1.7-2.4) 02/02/23 05:59 Total Bilirubin 1.8 mg/dl (0.2-1.0) H 02/01/23 06:32 AST 10 U/L (13-39) L 02/01/23 06:32 ALT 8 U/L (7-52) 02/01/23 06:32 Alkaline Phosphatase 86 U/L (34-104) 02/01/23 06:32 Total Protein 6.2 gm/dl (6.0-8.3) 02/01/23 06:32 Albumin 3.7 gm/dl (3.4-5.0) 02/01/23 06:32 Globulin 2.5 gm/dl (2.5-4.0) 02/01/23 06:32 Albumin/Globulin Ratio 1.5 (0.9-2) 02/01/23 06:32 Lipase 26 U/L (11-82) 01/31/23 17:38 Urine Color Yellow 01/31/23 18:55 Urine Appearance Clear (Clear) 01/31/23 18:55 Urine pH 5.5 (4.5-7.5) 01/31/23 18:55 Ur Specific [place] 1.037 (1.000-1.030) H 01/31/23 18:55 Urine Protein Negative (Negative) 01/31/23 18:55 Urine Glucose (UA) 3+ (Negative) H 01/31/23 18:55 Urine Ketones 3+ (Negative) H 01/31/23 18:55 Urine Blood Negative (Negative) 01/31/23 18:55 Urine Nitrite Negative (Negative) 01/31/23 18:55 Urine Bilirubin Negative (Negative) 01/31/23 18:55 Urine Urobilinogen Negative (Negative) 01/31/23 18:55 Ur Leukocyte Esterase Negative (Negative) 01/31/23 18:55 Salicylates < 3.0 mg/dl (3.0-30) L 01/31/23 21:03 Urine Opiates Screen Neg (Neg) 01/31/23 18:55 Ur Methadone, Qual Neg (Neg) 01/31/23 18:55 Acetaminophen < 3 ug/ml (10-30) L 01/31/23 21:03 Urine Barbiturates Neg (Neg) 01/31/23 18:55 Ur Phencyclidine (PCP) Neg (Neg) 01/31/23 18:55 U Amphetamin/Meth Scrn Neg (Neg) 01/31/23 18:55 MDMA (Ecstasy) Screen Pos (Neg) H 01/31/23 18:55 U Benzodiazepines Scrn Pos (Neg) H 01/31/23 18:55 Ur Cocaine Metabolite Neg (Neg) 01/31/23 18:55 U Marijuana (THC) Screen Pos (Neg) H 01/31/23 18:55 SARS-CoV-2, RNA, NAAT NEGATIVE (NEGATIVE) 01/31/23 18:40 Impressions Liver Ultrasound 01/31/23 22:46 Exam(s): US LIVER EXAM: US Abdomen Limited, Right Upper Quadrant CLINICAL HISTORY: Reason for exam: n/v, elevated bili r/o issa/stone. TECHNIQUE: Real-time ultrasound of the right upper quadrant with image documentation. COMPARISON: No relevant prior studies available. FINDINGS: Liver: Unremarkable. No mass. No intrahepatic bile duct dilation. Gallbladder: Gallbladder stones. No wall thickening or pericholecystic fluid. Common bile duct: Common bile duct 2 mm. No stones. No dilation. Pancreas: Pancreas not visualized due to overlying bowel gas. Right kidney: 6 mm right renal cyst. No stones. No hydronephrosis. IMPRESSION: Cholelithiasis without evidence of acute cholecystitis. Electronically signed by: Seema Shukla M.D. 02/01/23 01:25 AM Ordered Studies 01/31/23 22:46 US RUQ [US liver] Urgent Hospital Course (1) Nausea vomiting and diarrhea: (2) Dehydration: Patient is a 47 yr male with H/O HTN, dyslipidemia, CAD s/p stent, DM II, anxiety, bipolar disorder presented to ER with c/o N/V/D x 2 days. Denies fever/chills, abdominal pain Nausea, vomiting, diarrhea DDx: Gastroenteritis Vs marijuana use Toxicology screen positive for benzodiazepines, marijuana Stool studies pending Continue IV fluids as needed Hold antibiotics for now Needs abstinence from drug use GI symptoms resolved Tolerated regular diet Plan to discharge home today Cholelithiasis -Liver USD:Cholelithiasis without evidence of acute cholecystitis. 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 Has missed medications for 2 days Resumed amlodipine, enalapril, metoprolol succinate Monitor BP (7) Hyperlipidemia: Continue atorvastatin (8) CAD (coronary artery disease): S/p POLY x2 in 06/2022 History systolic heart failure Echo 12/29/2022: EF: 65-70%, grade 1 diastolic dysfunction Continue aspirin, Plavix, metoprolol succinate (9) Bipolar 1 disorder, depressed: (10) Mood disorder: Continue duloxetine, bupropion, buspirone DVT Px SCDs for now Encouraged to ambulate CODE STATUS Full Code (11) Metabolic acidosis: Total Time Total Time Spent Total Time Spent (In Minutes): 56 minutes Discharge Plan Discharge Items Patient Disposition: Home - Self-Care Reason For Visit: DEHYDRATION Discharge Diagnosis: Nausea, vomiting, diarrhea Elevated white blood cell count Marijuana use Activity: Per Instructions section Exercise/Sports: Gradually increase as tolerated Non-emergency contact: Primary Care Provider Call non-emergency contact if: you have any medication questions, your symptoms worsen, your pain is concerning for you and you have a fever Follow-up/Referrals: Ruben Gordillo MD [Primary Care Provider] - (Date & Time 02/09/2023 11:20 AM Provider Ruben Gordillo MD [facility] ) Diet: Carb Consistent or DM2 Addtl Attending Provider Instructions: Follow-up with your primary care physician Dr. Gordillo in 1 week --Your Blood test:Flow cytometry study is pending at the time of discharge. Follow-up with your physician for results. -- Quit using marijuana as advised. Seek immediate medical attention if your symptoms reoccur or worsen Please take all medications as instructed on discharge list below. Please call if you have any questions or problems. You can reach a [facility] hospitalist on duty at [facility] 24 hours a day by calling [phone] Pending Studies at Discharge: Yes (Flow cytometry study ) Stand-Alone Forms: My [facility], Smoking Cessation Medications and DC Order Prescriptions: Continued hydrocodone-acetaminophen 5-325 mg Tablet 1 tab PO Q4H PRN (Reason: pain) Qty: 10 0RF pantoprazole 40 mg Tablet,Delayed Release (Dr/Ec) 40 mg PO DAILY gabapentin 300 mg Capsule 300 mg PO TID montelukast 10 mg Tablet 10 mg PO DAILY Fiber Gummies with Vitamin D3 2,500 mg- 500 unit Tablet,Chewable 1 tab PO DAILY atorvastatin 40 mg Tablet 40 mg PO DAILY Qty: 30 0RF clopidogrel 75 mg tablet 75 mg PO DAILY Qty: 30 0RF buspirone 10 mg tablet 10 mg PO BID nystatin [Nyamyc] 100,000 unit/gram powder 1 applic TOPICAL DAILY PRN (Reason: Rash) metformin 500 mg tablet extended release 24 hr 1,000 mg PO BID cholecalciferol (vitamin D3) [Vitamin D3] 25 mcg (1,000 unit) capsule 25 mcg PO DAILY amlodipine-benazepril 10-20 mg capsule 1 cap PO DAILY bupropion HCl 150 mg tablet extended release 24 hr 150 mg PO DAILY duloxetine 60 mg capsule,delayed release(DR/EC) 60 mg PO QAM insulin degludec [Tresiba FlexTouch U-100] 100 unit/mL (3 mL) insulin pen 0 unit SUBCUT DAILY PRN (Reason: BLOOD SUGER HIGHER THAN 200) Rx Instructions: Pt doesn't remember the max unit he's allowed to inject Jardiance 10 mg tablet 10 mg PO DAILY naloxone 4 mg/actuation spray,non-aerosol 1 spray INTRANASAL DIRECTED aspirin 81 mg tablet,delayed release (DR/EC) 81 mg PO BID Rx Instructions: Twice a day x1 month then daily metoprolol succinate 25 mg tablet extended release 24 hr 25 mg PO BID Discharge Orders: Discharge Order (Routine); Ordered 02/02/23 Ordered By: Daron Negron Admission Data Admit Date/Time: 01/31/23 19:46 Attending Provider: Daron Negron Admit Provider: Nadia Damon Primary Care Provider: Ruben Gordillo Other Providers: Nadia Damon
== END 2023-02-02 13:45 | disposition home health service (06) | DRG 392 ==
LOC: ED 17:25 → SUATTDRO 19:46 → 2N 19:46
DX: E86.0 Dehydration; Z82.49 Family history of ischemic heart disease and other diseases of the circulatory system; Z79.82 Long term (current) use of aspirin; E11.65 Type 2 diabetes mellitus with hyperglycemia; I11.0 Hypertensive heart disease with heart failure; D72.829 Elevated white blood cell count, unspecified; Z87.891 Personal history of nicotine dependence; Z79.899 Other long term (current) drug therapy; K80.20 Calculus of gallbladder without cholecystitis without obstruction; Z79.4 Long term (current) use of insulin; Z83.3 Family history of diabetes mellitus; I25.10 Atherosclerotic heart disease of native coronary artery without angina pectoris; Z79.02 Long term (current) use of antithrombotics/antiplatelets; Z88.5 Allergy status to narcotic agent; E87.20 Acidosis, unspecified; Z91.048 Other nonmedicinal substance allergy status; F12.90 Cannabis use, unspecified, uncomplicated; R00.0 Tachycardia, unspecified; F31.9 Bipolar disorder, unspecified; Z91.138 Patient's unintentional underdosing of medication regimen for other reason; Z95.5 Presence of coronary angioplasty implant and graft; Z79.84 Long term (current) use of oral hypoglycemic drugs; E11.42 Type 2 diabetes mellitus with diabetic polyneuropathy; K52.9 Noninfective gastroenteritis and colitis, unspecified; E78.5 Hyperlipidemia, unspecified; Z91.040 Latex allergy status; I50.20 Unspecified systolic (congestive) heart failure; I25.5 Ischemic cardiomyopathy

== ENCOUNTER 2023-10-19 11:56 | Inpatient (IN) ==
[2023-10-19 12:43] LABS: Basophils # (auto) 0.14 K/uL (0.00-0.20); Basophils % (auto) 1.2 %; Eosinophils # (auto) 0.41 K/uL (0.00-0.50); Eosinophils % (auto) 3.4 %; Hematocrit (blood only) 42.8 % (42.0-52.0); Hemoglobin 13.7 g/dl (14.0-18.0); Immature Granulocytes # (auto) 0.12 K/uL (0.01-0.20); Lymphocytes # (auto) 2.63 K/uL (1.20-3.40); Lymphocytes % (auto) 21.9 %; Mean Corpuscular Hemoglobin 27.4 pg (25.0-34.0); Mean Corpuscular Volume 85.6 fL (80.0-100.0); Mean Platelet Volume 11.5 fL (9.4-12.4); Monocytes # (auto) 1.21 K/uL (0.11-0.59); Monocytes % (auto) 10.1 %; Neutrophils % (auto) 62.4 %; Platelet Count 334 K/uL (130-400); RDW Coefficient of Variation 13.7 % (11.5-14.5); RDW Standard Deviation 42.8 fL (36.4-46.3); White Blood Count 12.01 K/ul (4.8-10.8)
[2023-10-19 12:54] LABS: Alanine Aminotransferase 26 U/L (7-52); Albumin Globulin Ratio 1.4 (0.9-2); Albumin Level 4.1 gm/dl (3.4-5.0); Alkaline Phosphatase 93 U/L (34-104); Anion Gap 8 (3-11); Aspartate Aminotransferase 16 U/L (13-39); BUN Creatinine Ratio 12.8 (10-20); Bilirubin,Total 0.8 mg/dl (0.2-1.0); Blood Urea Nitrogen 30 mg/dl (6-23); Calcium 8.8 mg/dl (8.6-10.3); Carbon Dioxide 27 mmol/L (21-32); Chloride 102 mmol/L (98-107); Est GFR (African American) 36.8 ml/min; Est GFR (Non-African American) 31.8 ml/min; Glucose 252 mg/dl (70-99(Fasting)); Potassium 4.4 mmol/L (3.5-5.1); Sodium 137 mmol/L (136-145); Total Protein 7.1 gm/dl (6.0-8.3)
[2023-10-19 12:59] LABS: Appearance Urine Cloudy (Clear); Bacteria Urine Automated None Seen (None Seen); Bilirubin Urine Negative (Negative); Blood Urine 3+ (Negative); Color Urine Dark Yellow; Glucose Urine UA 3+ (Negative); Ketones Urine Negative (Negative); Leukocyte Esterase Urine 1+ (Negative); Nitrite Urine Negative (Negative); Protein Urine 2+ (Negative); RBC Urine Automated >20 /hpf (0-2); Specific Gravity Urine 1.019 (1.000-1.030); Urobilinogen Urine Negative (Negative); WBC Urine Automated 21-50 /hpf (0-5)
--- NOTE | 2023-10-19 14:34 | Emergency Department Note ---
Impression & Plan SAMANTHA (acute kidney injury), Acute urinary retention, Leukocytosis ED Provider Note NAME: LISANDRA VALENZUELA AGE: 48 SEX: M : 1975 ARRIVES VIA: Walk-In INFORMANT: Patient ED PROVIDER(S): Alon Arredondo DO CHIEF COMPLAINT: Urinary incontinence HPI: Patient is a 48-year-old male with past medical history of diabetes, CAD, ischemic cardiomyopathy, hypertension hyperlipidemia who presents to the ER referred in by his PCP for urinary incontinence. He notes this has been going on for quite some time where he has been waking up and being covered in urine. He notes he has this throughout the day as well. No new back pain. No new weakness or numbness in the arms or legs. No chest pain or shortness of breath. No nausea, vomiting, or diarrhea. No dysuria, urgency, or frequency. ADDITIONAL HISTORY OBTAINED: Per HPI Chronic Medical/Social Conditions Affecting Care: Per HPI PAST MEDICAL HISTORY:See Below PAST SURGICAL HISTORY:See Below FAMILY HISTORY:See Below SOCIAL HISTORY:See Below HOME MEDICATIONS:See Below ALLERGIES:See Below VITALS:See Below PHYSICAL EXAMINATION: GENERAL: Sitting up in bed, alert, well appearing, well nourished, no distress, non-toxic EYE EXAM: normal conjunctiva. PERRL and EOM's grossly intact. OROPHARYNX: mucous membranes are moist NECK: supple, no nuchal rigidity, no adenopathy, non-tender LUNGS: Clear to auscultation. Normal chest wall mechanics HEART: no murmurs, S1 normal and S2 normal ABDOMEN: abdomen soft, non-tender, normo-active bowel sounds, no masses, no rebound or guarding. UPPER EXTREMITIES: upper extremities are grossly normal. LOWER EXTREMITIES: No pitting edema. NEURO EXAM: Normal sensorium, cranial nerves II-XII grossly intact, normal speech, no gross weakness of arms, no gross weakness of legs. MEDICAL DECISION MAKING: Patient is a 48-year-old male who presents ER for above-stated complaint. IV was established blood was obtained. Labs show mild leukocytosis 12,000. No significant anemia. BMP with creatinine 2.3 up from baseline of 1. LFTs bilirubin was unremarkable. UA was contaminated. Bladder scan was greater than 700. Medrano was placed. Do favor the SAMANTHA is likely secondary to urinary retention. CT abdomen pelvis showed no acute pathology. Patient was updated bedside and given 2 L of IV fluids and discussed case with the hospitalist for further evaluation management treatment. Consults/Care Managements Discussions: Per MDM Triage Nursing notes reviewed. Limited review of prior medical records performed Vital Signs: reviewed and remarkable for no significant abnormalities Differential diagnosis: Differential diagnoses includes but is not limited to gastritis, peptic ulcer disease, GERD, gallbladder disease, pancreatitis, small bowel obstruction, appendicitis, diverticulitis, hernia, urinary tract infection, torsion, perforation, trauma, infectious. ER treatment provided: See below Diagnostics interpreted by me include EKG and cardiac monitoring as listed below: -Cardiac Monitoring: An order was placed for continuous cardiac monitoring. The monitor shows a rate of 90 with sinus rhythm. -ECG: none -Laboratory studies:Interpreted by me as stated above in MDM and shown below. Imaging studies: Xrays: As interpreted by me:none CTs show: CT abdomen pelvis per my prelim interpretation shows no obvious bowel obstruction CT of the pelvis per radiology shows no acute Procedures:none Critical Care: None Past Med/Surg History Problem List (Updated 10/19/23 @ 18:18 by Alon Arredondo DO) Leukocytosis (Acute) Acute urinary retention (Acute) SAMANTHA (acute kidney injury) (Acute) SAMANTHA (acute kidney injury) Hydronephrosis Urinary retention Lumbar spinal stenosis Metabolic acidosis Hyperglycemia Sinus tachycardia Dehydration (Acute) Nausea vomiting and diarrhea (Acute) Acute hyperglycemia (Acute) Subcapital fracture of left femur Closed left femoral fracture Personal history of diabetic foot ulcer Type 2 diabetes mellitus with diabetic neuropathy, unspecified CAD (coronary artery disease) Mood disorder History of percutaneous coronary intervention S/P cardiac catheterization Bipolar 1 disorder, depressed Systolic congestive heart failure Ischemic cardiomyopathy Hyperlipidemia Hypertension Type 2 diabetes mellitus Medical History Noncompliance Central retinal artery occlusion, left eye Diabetic peripheral neuropathy Surgical History S/P arthroscopic knee surgery History of dental surgery Family History Other Cancer Diabetes Hypertension Social History (Updated 10/19/23 @ 15:30 by Mari Montgomery PA-C) Smoking Status: Former smoker Do You Dip or Chew Tobacco: Yes; Hx Alcohol Use: No Hx Substance Use: Yes Last Used Substance Other:: Urine tox came back positive for ecstasy, benzos, and marijuana Preferred Language: [place]i Communication Ability: Effective Clinical Social Work Therapist Required: No Beliefs That Will Affect Care: None Current Living Situation: Parent Current Living Situation Comment: Lives at home with mom Feels Safe at Home: Yes Assistive Devices: Walker Allergies Allergies Allergy/AdvReac Type Severity Reaction Status Date / Time adhesive Allergy Intermediate Contact Verified 10/19/23 15:10 dermatitis latex Allergy Mild RASH Verified 10/19/23 15:10 tramadol Allergy Unknown n/v Verified 10/19/23 15:10 Home Meds Home Medications Medication Instructions Recorded Confirmed gabapentin 300 mg capsule 300 mg PO TID 06/16/22 10/19/23 montelukast 10 mg tablet 10 mg PO QAM 06/16/22 10/19/23 pantoprazole 40 mg tablet,delayed 40 mg PO QAM 06/16/22 10/19/23 release aspirin 81 mg tablet,delayed 81 mg PO QAM 01/31/23 10/19/23 release buspirone 10 mg tablet 10 mg PO BID 01/31/23 10/19/23 cholecalciferol (vitamin D3) 25 25 mcg PO QDL 01/31/23 10/19/23 mcg (1,000 unit) capsule (Vitamin D3) duloxetine 60 mg capsule,delayed 60 mg PO QAM 01/31/23 10/19/23 release empagliflozin 10 mg tablet 10 mg PO QAM 01/31/23 10/19/23 (Jardiance) naloxone 4 mg/actuation nasal spray 1 spray intranasal DIRECTED 01/31/23 10/19/23 amlodipine 5 mg-benazepril 20 mg 1 cap PO DAILY 10/19/23 10/19/23 capsule atorvastatin 40 mg tablet 40 mg PO QAM 10/19/23 10/19/23 bupropion HCl 450 mg 24 hr tablet, 450 mg PO QAM 10/19/23 10/19/23 extended release clonazepam 0.5 mg tablet 0.5 mg PO BID PRN Anxiety 10/19/23 10/19/23 clopidogrel 75 mg tablet 75 mg PO DAILYBL 10/19/23 10/19/23 dulaglutide 1.5 mg/0.5 mL 1.5 mg subcut TU 10/19/23 10/19/23 subcutaneous pen injector (Trulicity) duloxetine 30 mg capsule,delayed 30 mg PO QAM 10/19/23 10/19/23 release magnesium oxide 400 mg (241.3 mg 400 mg PO QAM 10/19/23 10/19/23 magnesium) tablet metformin 500 mg tablet,extended 500 mg PO BID 10/19/23 10/19/23 release 24 hr metoprolol succinate 25 mg 25 mg PO BID 10/19/23 10/19/23 tablet,extended release 24 hr oxybutynin chloride 10 mg 10 mg PO QAM 10/19/23 10/19/23 tablet,extended release 24 hr ramelteon 8 mg tablet 8 mg PO HS PRN Sleep 10/19/23 10/19/23 Results & Data (ED) Vital Signs Vital Signs - 24 hr 10/19/23 12:07 10/19/23 14:52 10/19/23 15:35 Temperature 36.9 C Temperature Source Oral Pulse Rate 93 H 93 H Pulse Rate [Left Finger] 91 H Respiratory Rate 20 20 Respiratory Effort / Characteristics Non-Labored Spontaneous Respiratory Depth Normal Blood Pressure 102/63 Blood Pressure [Left Arm] 134/93 Blood Pressure Mean 76 Blood Pressure Mean [Left Arm] 106 Pulse Oximetry 97 97 Oxygen Delivery Method Room Air Room Air Sepsis Recent Fever Within 48 Hours No Sepsis New/Unexplained Change in Mental Status No Sepsis Action Taken by Nursing No Action Required Laboratory Data 10/19/23 12:15 10/19/23 12:15 Lab Results 10/19/23 10/19/23 10/19/23 Range/Units 12:15 12:20 14:45 WBC 12.01 H (4.8-10.8) K/ul RBC 5.00 (4.70-6.10) M/uL Hgb 13.7 L (14.0-18.0) g/dl Hct 42.8 (42.0-52.0) % MCV 85.6 (80.0-100.0) fL MCH 27.4 (25.0-34.0) pg MCHC 32.0 (32.0-36.0) g/dL RDW Std Deviation 42.8 (36.4-46.3) fL RDW Coeff of Pancho 13.7 (11.5-14.5) % Plt Count 334 (130-400) K/uL MPV 11.5 (9.4-12.4) fL Immature Gran % (Auto) 1.0 % Neut % (Auto) 62.4 % Lymph % (Auto) 21.9 % Gregory % (Auto) 10.1 % Eos % (Auto) 3.4 % Baso % (Auto) 1.2 % Neut # (Auto) 7.50 H (1.40-6.50) K/uL Lymph # (Auto) 2.63 (1.20-3.40) K/uL Gregory # (Auto) 1.21 H (0.11-0.59) K/uL Eos # (Auto) 0.41 (0.00-0.50) K/uL Baso # (Auto) 0.14 (0.00-0.20) K/uL Immature Gran # (Auto) 0.12 (0.01-0.20) K/uL Sodium 137 (136-145) mmol/L Potassium 4.4 (3.5-5.1) mmol/L Chloride 102 (98-107) mmol/L Carbon Dioxide 27 (21-32) mmol/L Anion Gap 8 (3-11) BUN 30 H (6-23) mg/dl Creatinine 2.35 H (0.6-1.4) mg/dl Est Cr Clr Drug Dosing Not Reportable Est GFR ( Amer) 36.8 ml/min Est GFR (Non-Af Amer) 31.8 ml/min BUN/Creatinine Ratio 12.8 (10-20) Glucose 252 H (70-99(Fasting)) mg/dl Calcium 8.8 (8.6-10.3) mg/dl Total Bilirubin 0.8 (0.2-1.0) mg/dl AST 16 (13-39) U/L ALT 26 (7-52) U/L Alkaline Phosphatase 93 (34-104) U/L Total Protein 7.1 (6.0-8.3) gm/dl Albumin 4.1 (3.4-5.0) gm/dl Globulin 3.0 (2.5-4.0) gm/dl Albumin/Globulin Ratio 1.4 (0.9-2) Urine Color Dark Yellow Urine Appearance Cloudy A (Clear) Urine pH 6.0 (4.5-7.5) Ur Specific Vowinckel 1.019 (1.000-1.030) Urine Protein 2+ H (Negative) Urine Glucose (UA) 3+ H (Negative) Urine Ketones Negative (Negative) Urine Blood 3+ H (Negative) Urine Nitrite Negative (Negative) Urine Bilirubin Negative (Negative) Urine Urobilinogen Negative (Negative) Ur Leukocyte Esterase 1+ H (Negative) Urine WBC (Auto) 21-50 H (0-5) /hpf Urine RBC (Auto) >20 H (0-2) /hpf U Hyaline Cast (Auto) 6-10 H (0-2) /lpf U Epithel Cells (Auto) 3-5 H (0-2) /hpf Urine Bacteria (Auto) None Seen (None Seen) Ur Random Creatinine 31.2 mg/dl U Random Total Protein 517.1 H (0-11.9) mg/dl Protein/Creatinin Ratio 16.6 H (0-0.2) Administered Medications Discontinued Medications Sodium Chloride (Nss) 1,000 mls @ 999 mls/hr IV .Q1H1M MAE Stop: 10/19/23 16:45 Last Infusion: 10/19/23 15:48 Dose: Infused Documented By: Admin: 10/19/23 14:48 Dose: 999 mls/hr Documented By: Infusion: 10/19/23 14:48 Dose: Infused Documented By: Admin: 10/19/23 14:48 Dose: 999 mls/hr Documented By: ML Imaging Data Radiologist's Impression: Abdomen/Pelvis CT 10/19/23 16:[address] WITHOUT CONTRAST CT DOSE: 1315.23 mGy.cm HISTORY: Acute kidney injury with reported renal retention SAMANTHA, retention TECHNIQUE: Multiaxial CT images of the abdomen and pelvis were performed without contrast. A dose lowering technique was utilized adhering to the principles of ALARA. COMPARISON STUDY: CT abdomen and pelvis 02/15/2018 FINDINGS: No acute lower thoracic abnormality. There is no free air. Unremarkable unenhanced spleen, pancreas and adrenal glands. Cholelithiasis. The liver is within normal limits. There is symmetric moderate bilateral hydroureteronephrosis with bilateral perinephric stranding. No renal or ureteral calculi identified. Decompressed urinary bladder with circumferential wall thickening and Medrano catheter in place. Debris and air within the bladder lumen. Perivesicular inflammatory stranding. The prostate is mildly enlarged.. Atherosclerosis of aorta and branch vessels. No lymphadenopathy. Debris-filled stomach. No bowel obstruction or bowel wall thickening. Moderate colonic fecal retention. Noninflamed appendix. Left proximal femoral ORIF hardware. No acute fracture. IMPRESSION: 1. A Medrano catheter is present within a decompressed urinary bladder. Circumferential urinary bladder wall thickening with intraluminal debris/possible blood products. Correlate with urinalysis. 2. Moderate generally symmetric bilateral hydroureteronephrosis may be secondary to the reported urinary bladder retention. No urolith identified. 3. No bowel obstruction or bowel wall thickening. 4. Cholelithiasis. ACT 112: Negative or not required by law. The above report was generated using voice recognition software. It may contain grammatical, syntax or spelling errors. Electronically signed by: Franklin Polanco M.D. 10/19/2023 4:31 PM Discharge Plan Visit Data Chief Complaint: Urinary Symptoms Stated Complaint: CATHETER PUT IN, KIDNEY CHECK, UTI ED Provider: Alon Arredondo Discharge Problem: SAMANTHA (acute kidney injury), Acute urinary retention, Leukocytosis Forms Stand Alone Forms: My [facility] Prescriptions Prescriptions: No Action pantoprazole 40 mg Tablet,Delayed Release (Dr/Ec) 40 mg PO QAM gabapentin 300 mg Capsule 300 mg PO TID montelukast 10 mg Tablet 10 mg PO QAM buspirone 10 mg tablet 10 mg PO BID cholecalciferol (vitamin D3) [Vitamin D3] 25 mcg (1,000 unit) capsule 25 mcg PO QDL duloxetine 60 mg capsule,delayed release(DR/EC) 60 mg PO QAM Jardiance 10 mg tablet 10 mg PO QAM naloxone 4 mg/actuation spray,non-aerosol 1 spray INTRANASAL DIRECTED aspirin 81 mg tablet,delayed release (DR/EC) 81 mg PO QAM duloxetine 30 mg capsule,delayed release(DR/EC) 30 mg PO QAM Trulicity 1.5 mg/0.5 mL pen injector 1.5 mg SUBCUT TU Rx Instructions: take on TUESDAYS bupropion HCl 450 mg tablet extended release 24 hr 450 mg PO QAM clonazepam 0.5 mg tablet 0.5 mg PO BID PRN (Reason: Anxiety) magnesium oxide 400 mg (241.3 mg magnesium) tablet 400 mg PO QAM oxybutynin chloride 10 mg tablet extended release 24hr 10 mg PO QAM atorvastatin 40 mg tablet 40 mg PO QAM clopidogrel 75 mg tablet 75 mg PO DAILYBL ramelteon 8 mg tablet 8 mg PO HS PRN (Reason: Sleep) metoprolol succinate 25 mg tablet extended release 24 hr 25 mg PO BID metformin 500 mg tablet extended release 24 hr 500 mg PO BID amlodipine-benazepril 5-20 mg capsule 1 cap PO DAILY Referrals Referrals: Ruben Gordillo MD [Primary Care Provider] - Discharge Problem: Leukocytosis Qualifiers: Leukocytosis type: unspecified Qualified Code(s): D72.829 - Elevated white blood cell count, unspecified
[2023-10-19] MEDS: SODIUM CHLORIDE 0.9% 1,000 ML IV SCH ×2 (14:48→19:39)
--- NOTE | 2023-10-19 14:56 | History & Physical Report ---
Date of Service October 19, 2023 Assessment & Plan (1) Lumbar spinal stenosis: (2) Urinary retention: (3) Hydronephrosis: (4) SAMANTHA (acute kidney injury): (5) Type 2 diabetes mellitus with diabetic neuropathy, unspecified: (6) CAD (coronary artery disease): (7) Bipolar 1 disorder, depressed: Plan This is a 48-year-old male who has significant past medical history of CAD with hx of POLY x 2 06/2022, T2DM, diabetic neuropathy, HTN, HLD, chronic HFrEF, history of ischemic cardiomyopathy, history of left central retinal artery occlusion, bipolar depression, generalized anxiety, history of tobacco abuse who presents to ED at the referral of PCP due to abnormal MRI results. Urinary retention Hydronephrosis SAMANTHA admit to med tele under OBS pierce placed in ED, now with hematuria ? if due to trauma of insertion Bladder/renal US ordered consult urology pt prescribed oxybutnin 2 months ago due to incontinence w/o improvement, will d/c for now Pt with chronic back pain Outpt MRI revealed LSS "Mild multilevel, multifactorial degenerative changes of the lumbar spine superimposed on congenital spinal canal stenosis with varying degrees of spinal canal and neural foraminal stenosis as described, most prominent at L3-L4 and L4-L5." Uncertain if retention in setting of LSS, diabetic neuropathy or other Discussed with Joselyn who was going to push images of L spine to [place] SAMANTHA likely post renal in setting of hydronephrosis outpt chart review revealed cr in august was 2.2 IVF given in ED, will continue gentle hydration and repeat bmp in am. 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 Jade on Asa, statin, metoprolol and benazepril as OP T2DM controlled on metformin, trulicity and jardiance will hold OP meds in favor of lantus/novolog scale last a1c 5.9 in June, update a1c in a.m. Bipolar depression EMD continue cymbalta, wellbutrin, buspar Diabetic neuropathy continue gabapentin follows Joselyn neurology DVT ppx: SCds fro now given hematuria FULL CODE PCP: Ruben Gordillo Dispo: admit under obs to med tele Pt was seen and examined in collaboration with Dr. walker, please see addendum A total of 65 minutes was spent coordinating, documenting, and providing care for this patient excluding time spent in the performance of separately billed services. This included personally viewing all current laboratories and imaging studies, medication reconciliation, outpatient chart review, and discussion with specialists. History of Present Illness Chief Complaint: Referral by PCP due to abnormal MRI. Primary Care Provider: Ruben Gordillo MD This is a 48-year-old male who has significant past medical history of CAD with hx of POLY x 2 06/2022, T2DM, diabetic neuropathy, HTN, HLD, chronic HFrEF, history of ischemic cardiomyopathy, history of left central retinal artery occlusion, bipolar depression, generalized anxiety, history of tobacco abuse who presents to ED at the referral of PCP due to abnormal MRI results. He recently underwent an MRI of his lumbar spine per neurology due to progressing urinary incontinence which showed spinal stenosis, distended bladder and hydronephrosis. MRI was performed in early October. He also had abnormal lab work in August which showed an elevated creatinine at 2.2. Outpatient provider reached out to ask a doc urology who recommended patient have a Pierce placed.Of note patient is following with neurology due to diabetic neuropathy, gait and balance and now with new urinary incontinence. He was last hospitalized in January 2023 due to gastroenteritis versus GI symptoms in setting of marijuana use. He reports he has been experiencing falls for a few months. He has been working with [facility] for therapy. The past few months he legs would go completely and he would fall. His left is worse than his right. It goes down to his toes. It starts from his back down to toes. He has also been having incontinence. He would not know it was even coming out. His urine would just leak out. He denies any dysuria or urgency. He has noticed some blood. He has been on oxybutynin for a few months w/o improvement. He has chronic back pain in his lower back. He has prior hx of back fracture. His pain is getting worse and to the point when he walks he has to take a break. He does have obsessional constipation. He denies f/c/s, chest pain, sob, longo, palpitations, n/v/d, abd pain. He no longer smokes cigarettes but he chews 1/2 can a chew tobacco. He drinks 1- 2 beers a day. He states he has quit marijuana and since then he has drank a little bit more. Allergies Allergy/AdvReac Type Severity Reaction Status Date / Time adhesive Allergy Intermediate Contact Verified 10/19/23 15:10 dermatitis latex Allergy Mild RASH Verified 10/19/23 15:10 tramadol Allergy Unknown n/v Verified 10/19/23 15:10 Home Medications Medication Instructions Recorded Confirmed Type gabapentin 300 mg capsule 300 mg PO TID 06/16/22 10/19/23 History montelukast 10 mg tablet 10 mg PO QAM 06/16/22 10/19/23 History pantoprazole 40 mg tablet,delayed 40 mg PO QAM 06/16/22 10/19/23 History release aspirin 81 mg tablet,delayed 81 mg PO QAM 01/31/23 10/19/23 History release buspirone 10 mg tablet 10 mg PO BID 01/31/23 10/19/23 History cholecalciferol (vitamin D3) 25 25 mcg PO QDL 01/31/23 10/19/23 History mcg (1,000 unit) capsule (Vitamin D3) duloxetine 60 mg capsule,delayed 60 mg PO QAM 01/31/23 10/19/23 History release empagliflozin 10 mg tablet 10 mg PO QAM 01/31/23 10/19/23 History (Jardiance) naloxone 4 mg/actuation nasal spray 1 spray intranasal DIRECTED 01/31/23 10/19/23 History amlodipine 5 mg-benazepril 20 mg 1 cap PO DAILY 10/19/23 10/19/23 History capsule atorvastatin 40 mg tablet 40 mg PO QAM 10/19/23 10/19/23 History bupropion HCl 450 mg 24 hr tablet, 450 mg PO QAM 10/19/23 10/19/23 History extended release clonazepam 0.5 mg tablet 0.5 mg PO BID PRN Anxiety 10/19/23 10/19/23 History clopidogrel 75 mg tablet 75 mg PO DAILYBL 10/19/23 10/19/23 History dulaglutide 1.5 mg/0.5 mL 1.5 mg subcut TU 10/19/23 10/19/23 History subcutaneous pen injector (Trulicity) duloxetine 30 mg capsule,delayed 30 mg PO QAM 10/19/23 10/19/23 History release magnesium oxide 400 mg (241.3 mg 400 mg PO QAM 10/19/23 10/19/23 History magnesium) tablet metformin 500 mg tablet,extended 500 mg PO BID 10/19/23 10/19/23 History release 24 hr metoprolol succinate 25 mg 25 mg PO BID 10/19/23 10/19/23 History tablet,extended release 24 hr oxybutynin chloride 10 mg 10 mg PO QAM 10/19/23 10/19/23 History tablet,extended release 24 hr ramelteon 8 mg tablet 8 mg PO HS PRN Sleep 10/19/23 10/19/23 History Past Med/Surg History Problem List (Updated 10/19/23 @ 15:29 by Mari Montgomery PA-C) SAMANTHA (acute kidney injury) Hydronephrosis Urinary retention Lumbar spinal stenosis Metabolic acidosis Hyperglycemia Sinus tachycardia Dehydration (Acute) Nausea vomiting and diarrhea (Acute) Acute hyperglycemia (Acute) Subcapital fracture of left femur Closed left femoral fracture Personal history of diabetic foot ulcer Type 2 diabetes mellitus with diabetic neuropathy, unspecified CAD (coronary artery disease) Mood disorder History of percutaneous coronary intervention S/P cardiac catheterization Bipolar 1 disorder, depressed Systolic congestive heart failure Ischemic cardiomyopathy Hyperlipidemia Hypertension Type 2 diabetes mellitus Medical History Noncompliance Central retinal artery occlusion, left eye Diabetic peripheral neuropathy Surgical History S/P arthroscopic knee surgery History of dental surgery Family History Other Cancer Diabetes Hypertension Social History (Updated 10/19/23 @ 15:30 by Mari Montgomery PA-C) Smoking Status: Former smoker Do You Dip or Chew Tobacco: Yes; Hx Alcohol Use: No Hx Substance Use: Yes Last Used Substance Other:: Urine tox came back positive for ecstasy, benzos, and marijuana Preferred Language: Bruneian Communication Ability: Effective Toe Laster Required: No Beliefs That Will Affect Care: None Current Living Situation: Parent Current Living Situation Comment: Lives at home with mom Feels Safe at Home: Yes Assistive Devices: Walker Review of Systems Review of Systems: All systems reviewed & are unremarkable except as noted in HPI & below Physical Exam Physical Exam: please refer to Dr. walker addendum for physical exam findings. Results & Data Results & Data Vital Signs (Past 12 Hours) Vital Signs Temp Pulse Resp BP Pulse Ox O2 Del Method 10/19/23 12:07 36.9 C 93 H 20 102/63 97 Room Air Diagnostic Findings Lumbar Spine MRI 10/08/23: 1. Mild multilevel, multifactorial degenerative changes of the lumbar spine superimposed on congenital spinal canal stenosis with varying degrees of spinal canal and neural foraminal stenosis as described, most prominent at L3-L4 and L4-L5. 2. Distended bladder. Bilateral hydroureter and hydronephrosis. Clinical cor relation is recommended. A CT of the abdomen and pelvis may be performed for further evaluation. 3. Additional findings as described above. Medications Administered Medication List Sodium Chloride (Nss) 1,000 mls @ 999 mls/hr IV .Q1H1M MAE Stop: 10/19/23 16:45 Last Admin: 10/19/23 14:48 Dose: 999 mls/hr Documented By: Infusion: 10/19/23 14:48 Dose: Infused Documented By: Admin: 10/19/23 14:48 Dose: 999 mls/hr Documented By: ML COVID-19 Results Results COVID-19 Adm Lab Results: RBC 5.00 M/uL (4.70-6.10) 10/19/23 WBC 12.01 K/ul (4.8-10.8) H 10/19/23 Hgb 13.7 g/dl (14.0-18.0) L 10/19/23 Hct 42.8 % (42.0-52.0) 10/19/23 Plt Count 334 K/uL (130-400) 10/19/23 Neutrophils (%) (Auto) 62.4 % 10/19/23 Lymphocytes (%) (Auto) 21.9 % 10/19/23 Monocytes # (Auto) 1.21 K/uL (0.11-0.59) H 10/19/23 Eosinophils # (Auto) 0.41 K/uL (0.00-0.50) 10/19/23 Immature Granulocyte % (Auto) 1.0 % 10/19/23 Neutrophils # (Auto) 7.50 K/uL (1.40-6.50) H 10/19/23 Lymphocytes # (Auto) 2.63 K/uL (1.20-3.40) 10/19/23 Monocytes # (Auto) 1.21 K/uL (0.11-0.59) H 10/19/23 Eosinophils # (Auto) 0.41 K/uL (0.00-0.50) 10/19/23 Basophils # (Auto) 0.14 K/uL (0.00-0.20) 10/19/23 Immature Granulocyte # (Auto) 0.12 K/uL (0.01-0.20) 4 Na 137 mmol/L (136-145) 10/19/23 K 4.4 mmol/L (3.5-5.1) 10/19/23 Cl 102 mmol/L (98-107) 10/19/23 CO2 27 mmol/L (21-32) 10/19/23 Anion Gap 8 (3-11) 10/19/23 BUN 30 mg/dl (6-23) H 10/19/23 Creatinine 2.35 mg/dl (0.6-1.4) H 10/19/23 BUN/Creatinine Ratio 12.8 (10-20) 10/19/23 Glucose Level 252 mg/dl (70-99(Fasting)) H 10/19/23 Ca 8.8 mg/dl (8.6-10.3) 10/19/23 Total Bilirubin 0.8 mg/dl (0.2-1.0) 10/19/23 AST/SGOT 16 U/L (13-39) 10/19/23 ALT/SGPT 26 U/L (7-52) 10/19/23 Alkaline Phosphatase 93 U/L (34-104) 10/19/23 Total Protein 7.1 gm/dl (6.0-8.3) 10/19/23 Albumin 4.1 gm/dl (3.4-5.0) 10/19/23 Globulin 3.0 gm/dl (2.5-4.0) 10/19/23 Albumin/Globulin Ratio 1.4 (0.9-2) 10/19/23 Code Status & VTE Plan Code Status FULL CODE Supervising Physician Co-Signing Physician Notes I have seen and discussed the case with the collaborating advanced practitioner. I agree with the above H&P. I have reviewed and confirmed the patients medical history, the findings on physical examination, and the patients diagnosis and treatment plan with Valentina CROCKER and agree with the information documented. In short, is a 48 year old gentleman with history of CAD with hx of POLY x 2 06/2022, T2DM, diabetic neuropathy, HTN, HLD, chronic HFrEF, history of ischemic cardiomyopathy, history of left central retinal artery occlusion, bipolar depression, generalized anxiety, history of tobacco abuse who is admitted for management and evelaution of urinary retention, samantha, and spinal stensis contributing. Patient denies saddle anesthesia or bowel incontinence, but reports over 2 weeks of urinary dribbling/incontinence. He states he still feels the sensation of needing to urinate and thinks he has been emptying his bladder. He reports history of back fracture and progressive lumbar pain that was marked by leg weakeness and falls. He denies recent falls, but states he has notable neuropathy, mostly in feet, R>L. GENERAL APPEARANCE: AxOx4, chronically ill appearing gentleman, no acute distress. HEENT: NC, AT. MMM. EOMI, clear conjunctiva, oropharynx clear. NECK: Supple without lymphadenopathy. No stiffness or restricted ROM. HEART: Normal rate and regular rhythm, normal S1/S1, no m/r/g LUNGS: CTAB, moving air well. No crackles or wheezes are heard. ABDOMEN: Soft, nontender, nondistended with good bowel sounds heard. EXTREMITIES: Without cyanosis, clubbing or edema. NEUROLOGICAL: Grossly nonfocal. Alert and oriented, moving all 4 extremities. CN not formally tested but appear grossly intact. strength 5/5 in lower extremities, some back pain elucidated on exam : gross hematuria Skin: Warm and dry without any rash. : #Severe lumbar stenosis -requesting MRI imaging to be fowarded to [facility] -Orthospine consult -Question if neurogenic bladder from severe stenosis #Urinary incontinence #Gross hematuria -started on oxybutinin, no help reports over 2 weeks of dribbling/incontinence pierce in place Hematuria likely iso severe retention/pierce placement urology consult (continue plavix, holding dvt ppx, trend hgb) #SAMANTHA #Bilateral hydroureteronephrosis #Prostatomegaly likely obstructive 2/2 urinary retention Repeat BMP in am for trend, consider Nephrology if uptrending despite resolution of obstruction pierce in place d/c oxybutynin rest of plan as above I spent a total of 35 minutes coordinating, documenting, and providing care for this patient excluding time spent in the performance of separately billed services. All of the aforementioned completed outside of collaborating with the assigned advanced practitioner for a full treatment plan. I have reviewed the advanced practitioner's documentation, and I agree with, and take responsibility for the plan of care
[2023-10-19 16:32] LABS: Creatinine Urine Random 31.2 mg/dl; Protein Creatinine Ratio Urine 16.6 (0-0.2); Total Protein Urine Random 517.1 mg/dl (0-11.9)
--- NOTE | 2023-10-19 16:33 | CT Scan Report ---
ABDOMEN AND PELVIS CT WITHOUT CONTRAST CT DOSE: 1315.23 mGy.cm HISTORY: Acute kidney injury with reported renal retention SAMANTHA, retention TECHNIQUE: Multiaxial CT images of the abdomen and pelvis were performed without contrast. A dose lo wering technique was utilized adhering to the principles of ALARA. COMPARISON STUDY: CT abdomen and pelvis 02/15/2018 FINDINGS: No acute lower thoracic abnormality. There is no free air. Unremarkable unenhanced spleen, pancreas and adrenal glands. Cholelithiasis. The liver is within normal limits. There is symmetric mo derate bilateral hydroureteronephrosis with bilateral perinephric stranding. No renal or ureteral sang culi identified. Decompressed urinary bladder with circumferential wall thickening and Medrano catheter in place. Debris and air within the bladder lumen. Perivesicular inflammatory stranding. The prostat e is mildly enlarged.. Atherosclerosis of aorta and branch vessels. No lymphadenopathy. Debris-filled stomach. No bowel obst ruction or bowel wall thickening. Moderate colonic fecal retention. Noninflamed appendix. Left proxim al femoral ORIF hardware. No acute fracture. IMPRESSION: 1. A Medrano catheter is present within a decompressed urinary bladder. Circumferential urinary bladder wall thickening with intraluminal debris/possible blood products. Correlate with urinalysis. 2. Moderate generally symmetric bilateral hydroureteronephrosis may be secondary to the reported urin carlos bladder retention. No urolith identified. 3. No bowel obstruction or bowel wall thickening. 4. Cholelithiasis. ACT 112: Negative or not required by law. The above report was generated using voice recognition software. It may contain grammatical, syntax o r spelling errors. Electronically signed by: Franklin Polanco M.D. 10/19/2023 4:31 PM
--- NOTE | 2023-10-19 17:25 | Urology Consultation ---
<Statement entered by Martín Lin MD - 10/19/23 18:09> I have discussed Mr. Moctezuma's case with PLACIDO Savage and agree with the above documentation. Unclear etiology for hematuria at this time, may be related to traumatic catheter or rapid decompression of a full bladder. Would be reasonable to consider full hematuria workup in the future. In the short-ter m, would recommend maintaining catheter in place and monitoring output. If catheter becomes obstructed, would hand irrigate to clear from clots. If he has persistent bleeding with clotting, could consider continuous bladder irrigation. Urine culture pending, would consider empiric antibiotics and narrowing coverage as culture data becomes available. -Martín Lin MD. Date of Consultation October 19, 2023 Assessment & Plan (1) Urinary retention: (2) Hydronephrosis: (3) SAMANTHA (acute kidney injury): Plan 48yo/M admitted with acute urinary retention, SAMANTHA, hydronephrosis. CT abdomen pelvis was notable for bilateral hydronephrosis likely secondary to bladder distention and Medrano catheter present within the decompressed urinary bladder with circumferential bladder wall thickening and intraluminal debris. Urology consulted for urinary retention and hematuria. He is afebrile and hemodynamically stable. Labs show mild leukocytosis of 12, hemoglobin 13.7, and creatinine 2.35. Urine culture pending. Medrano catheter placed for management of urinary retention. Patient developed gross hematuria following Medrano catheter placement. The Medrano catheter was manually irrigated at bedside with removal of approximately 30 cc of clot. Medrano catheter currently draining light red urine. Continue to monitor urine output. Bladder scan as needed. Okay to manually irrigate as needed for clots, retention, suprapubic pain. If patient continues to have hematuria with clot, may need to consider upsizing catheter and initiating CBI. Anticoagulation per primary team. Urology can manage hematuria as needed. Urology will follow along. History of Present Illness History of Present Illness 48-year-old male who has significant past medical history of CAD, T2DM, diabetic neuropathy, HTN, HLD, chronic HFrEF, history of ischemic cardiomyopathy, history of left central retinal artery occlusion, bipolar depression, generalized anxiety, history of tobacco abuse who presented to the ED at the referral of PCP due to abnormal MRI results. He recently underwent an MRI of his lumbar spine per neurology due to progressing urinary incontinence which showed spinal stenosis, distended bladder and hydronephrosis. On arrival he was afebrile and hemodynamically stable. Labs showing a leukocytosis of 12, hemoglobin 13.7 and creatinine 2.35. Urinalysis with 3+ blood, >20RBC, negative nitrite, 1+ LE, negative bacteria. Urine culture collected and pending. CT abdomen pelvis notable for bilateral hydronephrosis likely secondary to bladder distention, Medrano catheter present within the decompressed urinary bladder with circumferential bladder wall thickening and intraluminal debris. Patient was admitted to medicine service for further management and care. CT abdomen pelvis- 1. A Medrano catheter is present within a decompressed urinary bladder. Circumferential urinary bladder wall thickening with intraluminal debris/possible blood products. Correlate with urinalysis. 2. Moderate generally symmetric bilateral hydroureteronephrosis may be secondary to the reported urinary bladder retention. No urolith identified. 3. No bowel obstruction or bowel wall thickening. 4. Cholelithiasis. Patient seen at bedside in the ED. Awake, resting bed on arrival. No acute distress. Medrano catheter intact and draining with hematuria and some clots. He denies gross hematuria prior to catheter insertion. Reports some dysuria. Denies suprapubic pain or pressure. Denies flank pain. Denies fever, chills, nausea, vomiting. At baseline, he reports worsening urinary incontinence. He is on aspirin and Plavix. Denies prior hx. Allergies Allergy/AdvReac Type Severity Reaction Status Date / Time adhesive Allergy Intermediate Contact Verified 10/19/23 15:10 dermatitis latex Allergy Mild RASH Verified 10/19/23 15:10 tramadol Allergy Unknown n/v Verified 10/19/23 15:10 Home Medications Medication Instructions Recorded Confirmed Type gabapentin 300 mg capsule 300 mg PO TID 06/16/22 10/19/23 History montelukast 10 mg tablet 10 mg PO QAM 06/16/22 10/19/23 History pantoprazole 40 mg tablet,delayed 40 mg PO QAM 06/16/22 10/19/23 History release aspirin 81 mg tablet,delayed 81 mg PO QAM 01/31/23 10/19/23 History release buspirone 10 mg tablet 10 mg PO BID 01/31/23 10/19/23 History cholecalciferol (vitamin D3) 25 25 mcg PO QDL 01/31/23 10/19/23 History mcg (1,000 unit) capsule (Vitamin D3) duloxetine 60 mg capsule,delayed 60 mg PO QAM 01/31/23 10/19/23 History release empagliflozin 10 mg tablet 10 mg PO QAM 01/31/23 10/19/23 History (Jardiance) naloxone 4 mg/actuation nasal spray 1 spray intranasal DIRECTED 01/31/23 10/19/23 History amlodipine 5 mg-benazepril 20 mg 1 cap PO DAILY 10/19/23 10/19/23 History capsule atorvastatin 40 mg tablet 40 mg PO QAM 10/19/23 10/19/23 History bupropion HCl 450 mg 24 hr tablet, 450 mg PO QAM 10/19/23 10/19/23 History extended release clonazepam 0.5 mg tablet 0.5 mg PO BID PRN Anxiety 10/19/23 10/19/23 History clopidogrel 75 mg tablet 75 mg PO DAILYBL 10/19/23 10/19/23 History dulaglutide 1.5 mg/0.5 mL 1.5 mg subcut TU 10/19/23 10/19/23 History subcutaneous pen injector (Trulicity) duloxetine 30 mg capsule,delayed 30 mg PO QAM 10/19/23 10/19/23 History release magnesium oxide 400 mg (241.3 mg 400 mg PO QAM 10/19/23 10/19/23 History magnesium) tablet metformin 500 mg tablet,extended 500 mg PO BID 10/19/23 10/19/23 History release 24 hr metoprolol succinate 25 mg 25 mg PO BID 10/19/23 10/19/23 History tablet,extended release 24 hr oxybutynin chloride 10 mg 10 mg PO QAM 10/19/23 10/19/23 History tablet,extended release 24 hr ramelteon 8 mg tablet 8 mg PO HS PRN Sleep 10/19/23 10/19/23 History Patient History Medical History Noncompliance Central retinal artery occlusion, left eye Diabetic peripheral neuropathy Surgical History S/P arthroscopic knee surgery History of dental surgery Family History Other Cancer Diabetes Hypertension Social History (Updated 10/19/23 @ 15:30 by Mari Montgomery PA-C) Smoking Status: Former smoker Do You Dip or Chew Tobacco: Yes; Hx Alcohol Use: No Hx Substance Use: Yes Last Used Substance Other:: Urine tox came back positive for ecstasy, benzos, and marijuana Preferred Language: Senegalese Communication Ability: Effective Coverstitch Binder Required: No Beliefs That Will Affect Care: None Current Living Situation: Parent Current Living Situation Comment: Lives at home with mom Feels Safe at Home: Yes Assistive Devices: Walker Review of Systems Review of Systems: All systems reviewed & are unremarkable except as noted in HPI & below Physical Exam Constitutional: well developed and well nourished; no acute distress Respiratory: normal respiratory effort; no respiratory distress and no labored breathing Musculoskeletal: Head/Neck/Chest: normocephalic Skin: No visible rashes or lesions to exposed skin areas Neurologic: moves all extremities and awake Psychiatric: A+Ox3, euthymic affect Genitourinary: Medrano draining w/hematuria Results & Data Vital Signs (Past 12 Hours) Vital Signs Temp Pulse Pulse Resp BP BP Pulse Ox 10/19/23 15:35 93 H 10/19/23 14:52 91 H 20 134/93 97 10/19/23 12:07 36.9 C 93 H 20 102/63 97 O2 Del Method 10/19/23 15:35 10/19/23 14:52 Room Air 10/19/23 12:07 Room Air PG Care Time/CCT Total # of Minutes Spent Total Time Spent with Patient: Total time spent is greater than 50% in coordination of care (as documented) at patient's floor/unit and/or counseling patient: Coding Level of Care Code 12568 IN/OBS CONSULT LVL 4,60M Diagnoses Urinary retention R33.9 Hydronephrosis N13.30 SAMANTHA (acute kidney injury) N17.9
[2023-10-19] MEDS ORDERED: GLUCAGON FOR INJ 1 MG VIAL SQ PRN (19:08)
[2023-10-19] MEDS ORDERED: LORazepam 1 MG TAB PO PRN (19:08)
[2023-10-19] MEDS ORDERED: ONDANSETRON INJ 2 MG/ML 2 ML VIAL IV PRN (19:08)
[2023-10-19] MEDS ORDERED: GLUCOSE 40% GEL 15 GM TUBE PO PRN (19:08)
[2023-10-19] MEDS ORDERED: CARBOHYDRATES FOR HYPOGLYCEMIA PO PRN (19:08)
[2023-10-19] MEDS ORDERED: DEXTROSE 50% 50 ML SYRINGE IV PRN (19:08)
[2023-10-19] MEDS ORDERED: GLUCOSE 10 TAB/TUBE PO PRN (19:08)
[2023-10-19] MEDS: NICOTINE 14 MG/24 HR PATCH TD SCH (19:37)
[2023-10-19] MEDS: CLOPIDOGREL BISULFATE 75 MG TAB PO SCH (19:37)
[2023-10-19] MEDS: INSULIN ASPART PER UNIT CHARGE SC SCH (19:38)
[2023-10-19] MEDS: LANTUS PER UNIT CHARGE SQ SCH (21:25)
[2023-10-19] MEDS: METOPROLOL SUCC 25MG EXT REL TAB PO SCH (21:26)
[2023-10-19] MEDS: GABAPENTIN 300 MG CAP PO SCH (21:26)
[2023-10-19] MEDS: busPIRone 5 MG TAB PO SCH (21:27)
[2023-10-20 06:25] LABS: Basophils # (auto) 0.16 K/uL (0.00-0.20); Eosinophils % (auto) 3.1 %; Hematocrit (blood only) 37.9 % (42.0-52.0); Hemoglobin 12.3 g/dl (14.0-18.0); Immature Granulocytes # (auto) 0.17 K/uL (0.01-0.20); Immature Granulocytes % (auto) 1.1 %; Lymphocytes # (auto) 3.79 K/uL (1.20-3.40); Lymphocytes % (auto) 23.9 %; Mean Corpuscular Hemoglobin 27.8 pg (25.0-34.0); Mean Corpuscular Hgb Conc 32.5 g/dL (32.0-36.0); Mean Corpuscular Volume 85.7 fL (80.0-100.0); Mean Platelet Volume 11.1 fL (9.4-12.4); Monocytes # (auto) 1.96 K/uL (0.11-0.59); Monocytes % (auto) 12.3 %; Neutrophils % (auto) 58.6 %; Platelet Count 301 K/uL (130-400); RDW Coefficient of Variation 13.7 % (11.5-14.5); RDW Standard Deviation 43.1 fL (36.4-46.3); Red Blood Count 4.42 M/uL (4.70-6.10); White Blood Count 15.88 K/ul (4.8-10.8)
[2023-10-20 06:38] LABS: Albumin Globulin Ratio 1.3 (0.9-2); Albumin Level 3.3 gm/dl (3.4-5.0); BUN Creatinine Ratio 11.5 (10-20); Bilirubin,Total 0.6 mg/dl (0.2-1.0); Calcium 7.6 mg/dl (8.6-10.3); Creatinine Clr Calc Pharmacy 52.2 ml/min; Est GFR (Non-African American) 40.6 ml/min; Globulin 2.6 gm/dl (2.5-4.0); Magnesium 1.7 mg/dl (1.7-2.4); Potassium 4.1 mmol/L (3.5-5.1); Total Protein 5.9 gm/dl (6.0-8.3)
[2023-10-20 07:34] LABS: Estimated Average Glucose 180 mg/dl; Hemoglobin A1C 7.9 % (4.5-5.6)
[2023-10-20] MEDS: cefTRIAXone SODIUM 2,000 MG/50 ML BAG IV SCH (07:55)
[2023-10-20] MEDS: ASPIRIN 81 MG ECTAB PO SCH (08:31)
[2023-10-20] MEDS: PANTOprazole 40 MG TAB PO SCH (08:31)
[2023-10-20] MEDS: ATORVASTATIN 40 MG TAB PO SCH (08:31)
[2023-10-20] MEDS: DULoxetine HCL 60 MG CAP PO SCH (08:32)
[2023-10-20] MEDS: buPROPion XL 150 MG TABCR PO SCH (08:32)
[2023-10-20] MEDS: DULoxetine HCL 30 MG CAP PO SCH (08:32)
[2023-10-20] MEDS: amLODIPine BESYLATE 5 MG TAB PO SCH (08:32)
--- OUTSIDE RECORDS SUMMARY | 2023-10-20 08:57 | External Medical Summary | Summary of Care ---
Author Name Unknown Organization [facility] Address [address] [place] [address] Phone [phone] Care Team Providers Care Judge Clerk Name Role Phone Ruben Gordillo MD Primary Care Provider [phone] Reason for Visit * Reason Onset Date Comments Test Results 10/11/2023 MRI L SPINE WO C ONTRAST Encounter Details Date Type Department Care Team (Late st Contact Info) Description 10/11/2023 Telephone Neurology [facility] [address] [place] [address] Vanessa Eid PA-C [address] [place] [address] Test Results (MRI L SPINE WO CONTRAST) Allergies Active Allergy Reactions Criticality Noted Date Comments Adhesive Tape 02/09/2023 Latex Rash 02/05/2022 Tramadol Nausea/vomiting 12/02/2014 documented as of this encounter (statuses as of 10/15/2023) Medications Medication Sig Dispensed Refills Start Date End Date Status GLUCOMETER ELITE CLASSIC KITIndications:DM type 2, not at goal (HCC) check blood sugar every morning when you get up 1 Kit 3 2 Active FreeStyle Sadiq 14 Day [place] Device Use as directed . 1 Each 1 2 Active FreeStyle Sadiq 14 Day Sensor Use as directed . 1 Each 11 2 Active Fiber/D3 Adult Gummies 2.5-500 GM-UNIT Oral Tablet Chewable (Inulin-Cholecalcif venessa) Take by mouth. 0 Active Metoprolol Succinate ER 25 MG Oral Tablet Extended Release 24 Hour (toPROL XL) Take 1 Tablet by mouth in the morning and 1 Tablet before bedtime. 180 Tablet 3 3 Active Montelukast Sodium 10 MG Oral Tablet (Singulair) TAKE ONE TABLET BY MOUTH IN THE MORNING 90 Tablet 3 3 Active Nystatin 901646 UNIT/GM External Cream Apply 1 g topically to affected area in the morning and 1 g before bedtime. To affacted area for two weeks.. 30 g 5 3 Active Aspirin Low Dose 81 MG Oral Tablet Delayed Release (aspirin enteric coated)Indications: DM type 2, not at goal (HCC),HTN, goal below 130/80 TAKE 1 TABLET BY MOUTH EVERY MORNING 90 Tablet 1 3 Active Dulaglutide 1.5 MG/0.5ML Subcutaneous Solution Pen-injector (Trulicity)Indicati ons:Type 2 diabetes mellitus with hemoglobin A1c goal of less than 7.0% (HCC) Inject 1.5 mg under the skin once a week. 2 mL 11 3 Active metFORMIN HCl ER 500 MG Oral Tablet Extended Release 24 Hour (Glucophage XR) TAKE 2 TABLETS BY MOUTH TWICE DAILY WITH MORNING AND EVENING MEALS 360 Tablet 3 3 Active Additional Information Patient taking differently: 500 mg Oral BID (799,1999), Reported on 06/29/2023 amLODIPine Besy-Benazepril HCl 5-20 MG Oral Capsule (Lotrel) Take 1 Capsule by mouth in the morning. 90 Capsule 3 4 Active Clopidogrel Bisulfate 75 MG Oral Tablet (pLAVix)Indications :Ischemic cardiomyopathy Take 1 Tablet by mouth every afternoon. 90 Tablet 3 4 Active Atorvastatin Calcium 40 MG Oral Tablet (Lipitor)Indication s:Dyslipidemia, goal LDL below 100 Take 1 Tablet by mouth in the morning. 90 Tablet 3 4 Active Jardiance 10 MG Oral Tablet (Empagliflozin)Nancy cations:Type 2 diabetes mellitus with hemoglobin A1c goal of less than 7.0% (HCC) TAKE 1 TABLET BY MOUTH EVERY MORNING 30 Tablet 11 4 Active buPROPion HCl ER (XL) 450 MG Oral Tablet Extended Release 24 Hour (Forvifo XL) TAKE 1 TABLET BY MOUTH EVERY MORNING 30 Tablet 3 4 Active Ramelteon 8 MG Oral Tablet (Rozerem) Take 1 Tablet by mouth at bedtime. 90 Tablet 1 4 Active BD Pen Needle Mini U/F 31G X 5 MM (Insulin Pen Needle)Indications: DM type 2, not at goal (HCC) USE WITH INSULIN PEN 100 Each 3 4 Active Additional Information Patient not taking.Reported on 09/02/2023 oxyBUTYnin Chloride ER 10 MG Oral Tablet Extended Release 24 Hour (Ditropan XL) Take 1 Tablet by mouth in the morning. Do not cut, crush or chew. 30 Tablet 11 4 Active DULoxetine HCl 60 MG Oral Capsule Delayed Release Particles (Cymbalta) Take 1 Capsule by mouth in the morning. Do not cut, crush or chew. 90 Capsule 3 4 Active Magnesium Oxide -Mg Supplement 400 (240 Mg) MG Oral Tablet (Mag-Ox) TAKE 1 TABLET BY MOUTH EVERY MORNING 90 Tablet 0 4 Active Riboflavin 400 MG Oral Tablet TAKE 1 TABLET BY MOUTH EVERY MORNING 90 Tablet 3 4 Active Pantoprazole Sodium 40 MG Oral Tablet Delayed Release (Protonix) TAKE 1 TABLET BY MOUTH EVERY 30 MINUTES BEFORE THE FIRST MEAL OF THE DAY. DO NOT CRUSH, CHEW OR SPLIT TABLET 30 Tablet 5 4 Active DULoxetine HCl 30 MG Oral Capsule Delayed Release Particles (Cymbalta) Take 1 Capsule by mouth in the morning. Take with the 60 mg capsule, for a total of 90 mg a day. 30 Capsule 3 4 Active clonazePAM 0.5 MG Oral Tablet (KlonoPIN) TAKE ONE TABLET BY MOUTH TWICE DAILY NEEDED FOR ANXIETY 60 Tablet 0 4 Active busPIRone HCl 10 MG Oral Tablet (Buspar) TAKE ONE TABLET BY MOUTH IN THE MORNING AND ONE BEFORE BEDTIME 60 Tablet 5 4 Active Gabapentin 300 MG Oral Capsule (Neurontin) Take 1 Capsule by mouth in the morning and 1 Capsule at noon and 1 Capsule before bedtime. 270 Capsule 1 3 10/14/19 24 Discontinued documented as of this encounter (statuses as of 10/15/2023) Active Problems Problem Noted Date Diagnosed Date History of hip surgery 02/09/2023 Non healing left heel wound 11/10/2022 S/P angioplasty with stent 06/23/2022 Coronary artery disease of n ative artery of [place] heart with stable angina pectoris 06/23/2022 Ischemic cardiomyopathy 05/22/2022 Systolic congestive heart failure 05/22/2022 Diabetic peripheral neuropathy 04/10/2022 Retinal artery occlusion, central, left 02/06/20 22 Bilateral knee pain 03/01/2015 Sleep disturbance 03/01/2015 HTN, goal below 140/90 09/05/2014 Type 2 diabetes mellitus wit h hemoglobin A1c goal of less than 7.0% 02/19/2014 Overview: ICD-10 update of inactive term History of smoking 02/23/2012 Generalized anxiety disorder 07/08/2011 OA (osteoarthritis) of knee 07/08/2011 Family history of diabetes mellitus (DM) 012 Dyslipidemia, goal LDL below 100 Bipolar 1 disorder, depressed documented as of this encounter (statuses as of 10/15/2023) Resolved Problems Problem Noted Date Diagnosed Date Resolved Date Food insecurity 11/16/2022 06/17/2023 Overview: Per [facility] Protocol Dyslipidemia, goal LDL below 100 12/03/2014 02/05/2022 Severe obesity with body mas s index (BMI) of 35.0 to 39.9 with serious comorbidity 11/30/2014 Overview: bmi= 35.1 11/30/14 ICD-10 update of inactive diagnosis Noncompliance 11/30/2014 06/29/2023 Severe obesity with body mas s index (BMI) of 35.0 to 39.9 with serious comorbidity 08/31/2013 Overview: bmi= 35.94 08/31/13 ICD-10 update of inactive diagnosis DM type 2, not at goal 08/31/201302/05 Need for hepatitis B vaccination 08/31/2013 02/05/2022 Type 2 diabetes mellitus wit h hemoglobin A1c goal of less than 7.0% 08/03/2013 08/31/2013 Overview: ICD-10 update of inactive term Severe obesity with body mas s index (BMI) of 35.0 to 39.9 with serious comorbidity 02/23/2012 Overview: BMI= 37.30 02/23/12 ICD-10 update of inactive diagnosis HTN, goal below 140/80 01/25/201202/22 Overview: Per [facility]N Protocol #27. Abscess of arm, right 07/21/20112021 Cellulitis of arm 07/21/2011 03/10/2022 Severe obesity with body mas s index (BMI) of 35.0 to 39.9 with serious comorbidity 07/08/2011 Overview: ICD-10 update of inactive diagnosis Hyperglycemia 07/08/2011 07/21/2011 Insomnia 10/12/2008 03/01/2015 Overview: ICD-10 update of inactive term HTN, goal below 140/90 10/12/200807/21 Adjustment disorder with depressed mood 10/12/2008 02/23/2012 DM type 2, not at goal 04/10 HTN, goal below 130/80 01/27 Overview: Per HTN Protocol #27. HTN, goal below 140/80 09/05 documented as of this encounter (statuses as of 10/15/2023) Immunizations Name Administration Dates Next Due Hepatitis B, 20+ yrs 08/31/2013 Pneumococcal Polysaccharide PPV23 (Pneumovax) Season Influenza, Cell Cultu re, 18+ Yrs, With Preserv (Flucelvax) 05/02/2013 Seasonal Influenza, Split, IIV3, With Preserve, Inj 02/25/2015,02/23/2012 02/26/2016 TD - Tetanus/Diptheria (ADULT) 06/07/2007 TDAP (age 10 and older)(Boostrix) 10/30/2022 documented as of this encounter Social History Tobacco Use Types Packs/Day Years Used Date Smoking Tobacco: Former Cigarettes 2 20 0 01/06/2020 - 01/09/2020 Passive Smoke Exposure: Past Smokeless Tobacco: Current Chew Comments:1 pack every 3 days Alcohol Use Standard Drinks/Week Comments Never 0 (1 standard drink = 0.6 oz pur e alcohol) PHQ-2 Answer Date Recorded PHQ Adult Total Score 7 09/02/2023 Hunger Vital Sign Answer Date Recorded Within the past 12 months, y ou worried that your food would run out before you got the money to buy more. Never true 05/24/20 23 Within the past 12 months, t he food you bought just didn't last and you didn't have money to get more. Never true 05/24/2023 Sex and Gender Information Value Date Recorded Sex Assigned at Male 02/05/2022 4:45 PM EDT Gender Identity Male 02/05/2022 4:45 PM EDT Sexual Orientation Straight 02/05/2022 4: 45 PM EDT Job Start Date Occupation Industry Not on file Not on file Not on file documented as of this encounter Miscellaneous Notes * Telephone Encounter - Malgorzata Damon OSA - 10/15/2023 11:32 AM EDT Reason for patient's call: test results Caller hung up before being transferred * Telephone Encounter - Ruben Gordillo MD - 10/15/2023 9:22 AM EDT Called pt and mother several times since wed but no answer still , left a VM to mother's phone number No call back yet Pt's VM is full, can't leave a message * Telephone Encounter - Marzena Apple TECH - 10/11/2023 5:03 PM EDT Hello- The radiologist discovered an unexpected or indeterminate finding on Shashi Moctezuma Jr. ([id number]) and asks that you review the following report. Study Type:MRI L SPINE WO CONTRAST Date of Study: 10/11/2023 IMPRESSION 1. Mild multilevel, multifactorial degenerative changes of the lumbar spine superimposed on congenital spinal canal stenosis with varying degrees of spinal canal and neural foraminal stenosis as described, most prominent at L3-L4 and L4-L5. 2. Distended bladder. Bilateral hydroureter and hydronephrosis. Clinical correlation is recommended. A CT of the abdomen and pelvis may be performed for further evaluation. Please respond to this encounter to acknowledge receipt of this message and take responsibility to ensure this report is reviewed. Thank you, NICOLAS Burgos Client Service Rep [facility] Medicine [place] documented in this encounter Plan of Treatment Upcoming Encounters Date Type Department Care Team (Late st Contact Info) Description 10/26/2023 1:30 PM EDT Telemedicine Psychiatry [place] [place] [address] [place] [address] Mauri Macias DO [address] [place] [facility] [place] [address] 10/28/2023 6:10 PM EDT Pharmacy Pharmacy, [place] [address] [place] [address] [facility] [address] [place] [address] 12/02/2023 3:20 PM EDT Office Visit Neurology [facility] [address] [facility] [place] [address] Vanessa Eid PA-C [address] [facility] [place] [address] 12/06/2023 1:20 PM EDT Office Visit Family Practice, [place] [address] [place] [phone] Ruben Gordillo MD [address] [place] [address] Health Maintenance Due Date Last Done Comments Pneumococcal Vaccine: Pediatrics (0 to 5 Years) and At-Risk Patients (6 to 64 Years) (2 of 2 - PCV) 02/22/2013 02/23/2012 Diabetic Foot Exam 12/01/2015 11/30/2014, 0 01/29/2014, 01/11/2013, Additional history exists Cologuard 2021 Colonoscopy 2021 Colorectal Cancer Screening 2021 Fecal Occult Blood Test 2021 Sigmoidoscopy 2021 COVID-19 Vaccine ( season) 2023 HbA1c 12/17/2023 06/18/2023, 11/0 12/2022, 01/11/2023, Additional history exists Diabetic Eye Exam 12/22/2023 12/21/2022, , 01/11/2013, Additional history exists Albumin/Creatinine Ratio 01/12/2024 023, 11/30/2014, 01/11/2013, Additional history exists Influenza Vaccine (FLU shot) (Season Ended) 2024 02/25/2015, 05/02/2013, 02/23/2012 GFR 09/01/2024 09/02/2023, 06/07, 04/13/2023, Additional history exists DTaP,Tdap,and Td Vaccines (2 - Td or Tdap) 10/30/2032 10/30/2022, 06/07/2007 Hepatitis B Discontinued 08/31/2013 GARDASIL-HPV IMMUNIZATION SERIES Aged Out No longer eligible based on patient's age to complete this topic HIV Screening Discontinued Hepatitis C Screening Discontinued MENINGOCOCCAL (MENACTRA/MENVEO) Aged Out No longer eligible based on patient's age to complete this topic documented as of this encounter Medical Devices Not on filedocumented as of this encounter Care Teams Judge Clerk Relationship Specialty Start Date End Date Ruben Gordillo MD [address] [place] [facility] [place] [address] PCP - General Internal Medicine 02/05/22 documented as of this encounter
--- OUTSIDE RECORDS SUMMARY | 2023-10-20 08:57 | External Medical Summary | Summary of Care ---
Author Name Unknown Organization [facility] Address [address] [place] [address] Phone [phone] Care Team Providers Care Straight Edger Name Role Phone Ruben Gordillo MD Primary Care Provider [phone] Reason for Visit * Reason Onset Date Comments Test Results 10/11/2023 MRI L SPINE WO C ONTRAST Encounter Details Date Type Department Care Team (Late st Contact Info) Description 10/11/[address] [facility] [address] [place] [address] Vanessa Eid PA-C [address] [place] [address] Test Results (MRI L SPINE WO CONTRAST) [...] 3 2 Active FreeStyle Sadiq 14 Day [place] Device Use as directed . 1 Each [...] MORNING 90 Tablet 3 3 Active Nystatin 551785 UNIT/GM External Cream Apply 1 g topically [...] artery disease of n ative artery of [place] heart with stable angina pectoris 06/23/2022 Ischemic [...] Reason for patient's call: test results Caller was transferred to [facility] at the nurse line. * Telephone Encounter - Ruben Gordillo MD [...] or indeterminate finding on Shashi Moctezuma Jr. ([id number]) and asks that you review the following [...] Thank you, NICOLAS Burgos Client Service Rep [facility] Medicine [place] documented in this encounter Plan of Treatment Upcoming Encounters Date Type Department Care Team (Late st Contact Info) Description 10/26/2023 1:30 PM EDT Telemedicine Psychiatry [facility] [address] [place] [phone] Mauri Macias DO [address] [place] [facility] [place] [address] 10/28/2023 6:10 PM EDT Pharmacy Pharmacy, [place] [address] [place] [address] [place] [facility] [address] [place] [address] 12/02/2023 3:20 PM EDT Office Visit Neurology [facility] [address] [facility] [address] Vanessa Eid PA-C [address] [facility] [address] 12/06/2023 1:20 PM EDT Office Visit Family Practice, [place] [address] [place] [phone] Ruben Gordillo MD [address] [place] [address] Health Maintenance Due Date Last Done Comments Pneumococcal Vaccine: Pediatrics (0 to 5 Years) and At-Risk Patients (6 to 64 Years) (2 of 2 - PCV) 02/22/2013 02/23/2012 Diabetic Foot Exam 12/01/2015 11/30/2014, 0 01/29/2014, 01/11/2013, Additional history exists Cologuard 2021 Colonoscopy 2021 Colorectal Cancer Screening 2021 Fecal Occult Blood Test 2021 Sigmoidoscopy 2021 COVID-19 Vaccine ( season) 2023 HbA1c 12/17/2023 06/18/2023, 11/12/2022, 01/11/2023, Additional history exists Diabetic Eye Exam [...] filedocumented as of this encounter Care Teams Straight Edger Relationship Specialty Start Date End Date Ruben Gordillo MD [address] [place] [facility] [place] [facility] [place] [address] PCP - General Internal Medicine 02/05/22 documented as of this encounter
--- OUTSIDE RECORDS SUMMARY | 2023-10-20 08:57 | External Medical Summary | Summary of Care ---
Author Name Unknown Organization [facility] Address [address] [place] [address] Phone [phone] Care Team Providers Care Inside Technical Sales Representative Name Role Phone Ruben Gordillo MD Primary Care Provider [phone] Reason for Visit * Reason Onset Date Comments Test Results 10/11/2023 MRI L SPINE WO C ONTRAST Encounter Details Date Type Department Care Team (Late st Contact Info) Description 10/11/2023 Telephone Neurology [facility] [address] [place] [address] Vanessa Eid PA-C [address] [place] [address] Test Results (MRI L SPINE WO CONTRAST) [...] 3 2 Active FreeStyle Sadiq 14 Day [place] Device Use as directed . 1 Each [...] MORNING 90 Tablet 3 3 Active Nystatin 825436 UNIT/GM External Cream Apply 1 g topically [...] artery disease of n ative artery of [place] heart with stable angina pectoris 06/23/2022 Ischemic [...] encounter Miscellaneous Notes * Telephone Encounter - Ruben Gordillo MD [...] unexpected or indeterminate finding on Shashi Moctezuma . ([id number]) and asks that you review the following [...] reviewed. Thank you, NICOLAS Burgos Client Service [facility] documented in this encounter Plan of Treatment Upcoming Encounters Date Type Department Care Team (Late st Contact Info) Description 10/26/2023 1:30 PM EDT Telemedicine Psychiatry [facility] [address] [phone] Colleen Kellymaury, [address] [place] [address] 10/28/2023 6:10 PM EDT Pharmacy Pharmacy, [place] [address] [place] [address] [facility] [address] [place] [address] 12/02/2023 3:20 PM EDT Office Visit Neurology [facility] [address] [facility] [place] [address] Vanessa Eid PA-C [address] [facility] [place] [address] 12/06/2023 1:20 PM EDT Office Visit Family Practice, [place] [address] [place] [phone] Ruben Gordillo MD [address] [place], [place] [phone] Health Maintenance Due Date Last Done Comments [...] filedocumented as of this encounter Care Teams Inside Technical Sales Representative Relationship Specialty Start Date End Date Ruben Gordillo MD [address] [place] [address] PCP - General Internal Medicine 02/05/22 documented as of this encounter
--- OUTSIDE RECORDS SUMMARY | 2023-10-20 08:57 | External Medical Summary | Summary of Care ---
Author Name Unknown Organization [facility] Address [address] [place] [address] Phone [phone] Care Team Providers Care Graphic Designer Name Role Phone Ruben Gordillo MD Primary Care Provider [phone] Reason for Visit * Reason Onset Date Comments Test Results 10/11/2023 MRI L SPINE WO C ONTRAST Encounter Details Date Type Department Care Team (Late st Contact Info) Description 10/11/2023 Telephone Neurology [facility] [address] [place] [address] Vanessa Eid PA-C [address] [place] [address] Test Results (MRI L SPINE WO CONTRAST) [...] 3 2 Active FreeStyle Sadiq 14 Day [place] Device Use as directed . 1 Each [...] MORNING 90 Tablet 3 3 Active Nystatin 858001 UNIT/GM External Cream Apply 1 g topically [...] artery disease of n ative artery of [place] heart with stable angina pectoris 06/23/2022 Ischemic [...] or indeterminate finding on Shashi Moctezuma . ([id number]) and asks that you review the following [...] reviewed. Thank you, NICOLAS Burgos Client Service [facility] documented in this encounter Plan of Treatment Upcoming Encounters Date Type Department Care Team (Late st Contact Info) Description 10/26/2023 1:30 PM EDT Telemedicine Psychiatry [facility] [address] [place] [phone] Colleen Kellymaury, [address] [place] [address] 10/28/2023 6:10 PM EDT Pharmacy Pharmacy, [place] [address] [place] [address] [facility] [address] [place] [address] 12/02/2023 3:20 PM EDT Office Visit Neurology [facility] [address] [facility] [place] [address] Vanessa Eid PA-C [address] [facility] [place] [address] 12/06/2023 1:20 PM EDT Office Visit Family Practice, [place] [address] [place] [phone] Ruben Gordillo MD [address], [place] [phone] Health Maintenance Due Date Last Done Comments [...] filedocumented as of this encounter Care Teams Graphic Designer Relationship Specialty Start Date End Date Ruben Gordillo MD [address] [place] [address] PCP - General Internal Medicine 02/05/22 documented as of this encounter
--- OUTSIDE RECORDS SUMMARY | 2023-10-20 08:57 | External Medical Summary | Summary of Care ---
Author Name Unknown Organization [facility] Address [address] [place] [address] Phone [phone] Care Team Providers Care Machine Brush Maker Name Role Phone Ruben Gordillo MD Primary Care Provider [phone] Reason for Visit * Reason Comments eRx-Medication Refill Encounter Details Date Type Department Care Team (Late st Contact Info) Description 10/12/2023 Refill [facility] [address] [place] [address] Ruben Gordillo MD [address] [place] [address] Allergies Active Allergy Reactions Criticality Noted Date Comments Adhesive Tape 02/09/2023 Latex Rash 02/05/2022 Tramadol Nausea/vomiting 12/02/2014 documented as of this encounter (statuses as of 10/14/2023) Medications Medication Sig Dispensed Refills Start Date End Date Status GLUCOMETER ELITE CLASSIC KITIndications:DM type 2, not at goal (HCC) check blood sugar every morning when you get up 1 Kit 3 2 Active FreeStyle Sadiq 14 Day [place] Device Use as directed . 1 Each [...] MORNING 90 Tablet 3 3 Active Nystatin 241204 UNIT/GM External Cream Apply 1 g topically [...] Patient taking differently: 500 mg Oral BID (0800,1999), Reported on 06/29/2023 amLODIPine Besy-Benazepril HCl 5-20 [...] Active Gabapentin 300 MG Oral Capsule (Neurontin) TAKE 1 CAPSULE BY MOUTH THREE TIMES DAILY EVERY MORNING, AT NOON, AND BEFORE BEDTIME 270 Capsule 1 4 Active Gabapentin 300 MG Oral Capsule (Neurontin) Take 1 Capsule by mouth in the morning and 1 Capsule at noon and 1 Capsule before bedtime. 270 Capsule 1 3 10/14/19 24 Discontinued documented as of this encounter (statuses as of 10/14/2023) Active Problems Problem Noted Date Diagnosed Date History of hip surgery 02/09/2023 Non healing left heel wound 11/10/2022 S/P angioplasty with stent 06/23/2022 Coronary artery disease of n ative artery of [place] heart with stable angina pectoris 06/23/2022 Ischemic cardiomyopathy 05/22/2022 Systolic congestive heart failure 05/22/2022 Diabetic peripheral neuropathy 04/10/2022 Retinal artery occlusion, central, left 02/06/20 Bilateral knee pain 03/01/2015 Sleep disturbance 03/01/2015 [...] as of this encounter (statuses as of 10/14/2023) Resolved Problems Problem Noted Date Diagnosed Date [...] as of this encounter (statuses as of 10/14/2023) Immunizations Name Administration Dates Next Due Hepatitis [...] Telephone Encounter - Ruben Gordillo MD - 10/14/2023 7:31 AM EDTSigned Prescriptions: Disp Refills Gabapentin 300 MG Oral Capsule (Neurontin) 270 Ca*1 Sig: TAKE 1 CAPSULE BY MOUTH THREE TIMES DAILY EVERY MORNING, AT NOON, AND BEFORE BEDTIME Authorizing Provider: RUBEN GORDILLO * Telephone Encounter - Interface, E-[facility] S[facility] Inbound - 10/14/2023 6:04 AM EDT Pending Prescriptions: Disp Refills Gabapentin 300 MG Oral Capsule [Pharmacy M*270 Ca*0 Sig: TAKE 1 CAPSULE BY MOUTH THREE TIMES DAILY EVERY MORNING, AT NOON, AND BEFORE BEDTIME * Telephone Encounter - Aliza Weber LPN - 10/13/2023 7:20 AM EDTPending Prescriptions: Disp Refills Gabapentin 300 MG Oral Capsule [Pharmacy M*270 Ca*0 Sig: TAKE 1 CAPSULE BY MOUTH THREE TIMES DAILY EVERY MORNING, AT NOON, AND BEFORE BEDTIME * Telephone Encounter - Zoë Hopson - 10/13/2023 6:05 AM EDTPending Prescriptions: Disp Refills Gabapentin 300 MG Oral Capsule [Pharmacy M*270 Ca*0 Sig: TAKE 1CAPSULE BY MOUTH THREE TIMES DAILY EVERY MORNING, AT NOON, AND BEFORE BEDTIME documented in this encounter Plan of Treatment Upcoming Encounters Date Type Department Care Team (Late st Contact Info) Description 10/26/2023 1:30 PM EDT Telemedicine Psychiatry Clarice Young [address] [phone] [facility] Macias [facility] [address] [facility] [address] 12/02/2023 3:20 PM EDT Office Visit Neurology [facility] [place] [address] [place] [address] Vanessa Eid PA-C [address] [place] [address] 12/06/2023 1:20 PM EDT Office Visit [facility] [address] [place] [address] Ruben Gordillo MD [address] [place] [address] Health Maintenance Due Date Last Done Comments [...] filedocumented as of this encounter Care Teams Machine Brush Maker Relationship Specialty Start Date End Date Ruben Gordillo MD [address] [place] [address] PCP - General Internal Medicine 02/05/22 documented as of this encounter
--- OUTSIDE RECORDS SUMMARY | 2023-10-20 08:57 | External Medical Summary | Summary of Care ---
Author Name Unknown Organization [facility] Address [address] [place] [address] Phone [phone] Care Team Providers Care Supervisor Shuttle Fitting Name Role Phone Ruben Gordillo MD Primary Care Provider [phone] Reason for Visit * Reason Onset Date Comments Test Results 10/11/2023 MRI L SPINE WO C ONTRAST Encounter Details Date Type Department Care Team (Late st Contact Info) Description 10/11/2023 Telephone Neurology [facility] [address] [place] [address] Vanessa Eid PA-C [address] [place] [address] Test Results (MRI L SPINE WO CONTRAST) Allergies Active Allergy Reactions Criticality Noted Date Comments Adhesive Tape 02/09/2023 Latex Rash 02/05/2022 Tramadol Nausea/vomiting 12/02/2014 documented as of this encounter (statuses as of 10/12/2023) Medications Medication Sig Dispensed Refills Start Date End Date Status GLUCOMETER ELITE CLASSIC KITIndications:DM type 2, not at goal (HCC) check blood sugar every morning when you get up 1 Kit 3 07/31/2011 Active FreeStyle Sadiq 14 Day [place] Device Use as directed . 1 Each 1 02/13/2022 Active FreeStyle Sadiq 14 Day Sensor Use as directed . 1 Each 11 02/13/2022 Active Fiber/D3 Adult Gummies 2.5-500 GM-UNIT Oral Tablet Chewable (Inulin-Cholecalcife rol) Take by mouth. 0 Active Metoprolol Succinate ER 25 MG Oral Tablet Extended Release 24 Hour (toPROL XL) Take 1 Tablet by mouth in the morning and 1 Tablet before bedtime. 180 Tablet 3 01/11/2023 Active Montelukast Sodium 10 MG Oral Tablet (Singulair) TAKE ONE TABLET BY MOUTH IN THE MORNING 90 Tablet 3 02/09/2023 Active Nystatin 803742 UNIT/GM External Cream Apply 1 g topically to affected area in the morning and 1 g before bedtime. To affacted area for two weeks.. 30 g 5 04/13/2023 Active Gabapentin 300 MG Oral Capsule (Neurontin) Take 1 Capsule by mouth in the morning and 1 Capsule at noon and 1 Capsule before bedtime. 270 Capsule 1 04/19/2023 Active Aspirin Low Dose 81 MG Oral Tablet Delayed Release (aspirin enteric coated)Indications:D M type 2, not at goal (HCC),HTN, goal below 130/80 TAKE 1 TABLET BY MOUTH EVERY MORNING 90 Tablet 1 04/22/2023 Active Dulaglutide 1.5 MG/0.5ML Subcutaneous Solution Pen-injector (Trulicity)Indicatio ns:Type 2 diabetes mellitus with hemoglobin A1c goal of less than 7.0% (HCC) Inject 1.5 mg under the skin once a week. 2 mL 11 04/28/2023 Active metFORMIN HCl ER 500 MG Oral Tablet Extended Release 24 Hour (Glucophage XR) TAKE 2 TABLETS BY MOUTH TWICE DAILY WITH MORNING AND EVENING MEALS 360 Tablet 3 05/04/2023 Active Additional Information Patient taking differently: 500 mg Oral BID (799,1999), Reported on 06/29/2023 amLODIPine Besy-Benazepril HCl 5-20 MG Oral Capsule (Lotrel) Take 1 Capsule by mouth in the morning. 90 Capsule 3 06/29/2023 Active Clopidogrel Bisulfate 75 MG Oral Tablet (pLAVix)Indications: Ischemic cardiomyopathy Take 1 Tablet by mouth every afternoon. 90 Tablet 3 07/21/2023 Active Atorvastatin Calcium 40 MG Oral Tablet (Lipitor)Indications :Dyslipidemia, goal LDL below 100 Take 1 Tablet by mouth in the morning. 90 Tablet 3 07/21/2023 Active Jardiance 10 MG Oral Tablet (Empagliflozin)Indic ations:Type 2 diabetes mellitus with hemoglobin A1c goal of less than 7.0% (HCC) TAKE 1 TABLET BY MOUTH EVERY MORNING 30 Tablet 11 07/22/2023 Active buPROPion HCl ER (XL) 450 MG Oral Tablet Extended Release 24 Hour (Forvifo XL) TAKE 1 TABLET BY MOUTH EVERY MORNING 30 Tablet 3 08/19/2023 Active Ramelteon 8 MG Oral Tablet (Rozerem) Take 1 Tablet by mouth at bedtime. 90 Tablet 1 08/24/2023 Active BD Pen Needle Mini U/F 31G X 5 MM (Insulin Pen Needle)Indications:D M type 2, not at goal (HCC) USE WITH INSULIN PEN 100 Each 3 08/31/2023 Active Additional Information Patient not taking.Reported on 09/02/2023 oxyBUTYnin Chloride ER 10 MG Oral Tablet Extended Release 24 Hour (Ditropan XL) Take 1 Tablet by mouth in the morning. Do not cut, crush or chew. 30 Tablet 11 09/02/2023 Active DULoxetine HCl 60 MG Oral Capsule Delayed Release Particles (Cymbalta) Take 1 Capsule by mouth in the morning. Do not cut, crush or chew. 90 Capsule 3 09/08/2023 Active Magnesium Oxide -Mg Supplement 400 (240 Mg) MG Oral Tablet (Mag-Ox) TAKE 1 TABLET BY MOUTH EVERY MORNING 90 Tablet 0 09/13/2023 Active Riboflavin 400 MG Oral Tablet TAKE 1 TABLET BY MOUTH EVERY MORNING 90 Tablet 3 09/14/2023 Active Pantoprazole Sodium 40 MG Oral Tablet Delayed Release (Protonix) TAKE 1 TABLET BY MOUTH EVERY 30 MINUTES BEFORE THE FIRST MEAL OF THE DAY. DO NOT CRUSH, CHEW OR SPLIT TABLET 30 Tablet 5 09/21/2023 Active DULoxetine HCl 30 MG Oral Capsule Delayed Release Particles (Cymbalta) Take 1 Capsule by mouth in the morning. Take with the 60 mg capsule, for a total of 90 mg a day. 30 Capsule 3 09/21/2023 Active clonazePAM 0.5 MG Oral Tablet (KlonoPIN) TAKE ONE TABLET BY MOUTH TWICE DAILY NEEDED FOR ANXIETY 60 Tablet 0 09/28/2023 Active busPIRone HCl 10 MG Oral Tablet (Buspar) TAKE ONE TABLET BY MOUTH IN THE MORNING AND ONE BEFORE BEDTIME 60 Tablet 5 10/11/2023 Active documented as of this encounter (statuses as of 10/12/2023) Active Problems Problem Noted Date Diagnosed Date History of hip surgery 02/09/2023 Non healing left heel wound 11/10/2022 S/P angioplasty with stent 06/23/2022 Coronary artery disease of n ative artery of [place] heart with stable angina pectoris 06/23/2022 Ischemic [...] as of this encounter (statuses as of 10/12/2023) Resolved Problems Problem Noted Date Diagnosed Date [...] as of this encounter (statuses as of 10/12/2023) Immunizations Name Administration Dates Next Due Hepatitis [...] encounter Miscellaneous Notes * Telephone Encounter - Marzena Apple TECH - 10/11/2023 5:03 PM EDT Hello- The radiologist discovered an unexpected or indeterminate finding on Shashi Moctezuma Jr. ([id number]) and asks that you review the following [...] Thank you, NICOLAS Burgos Client Service Rep Diagnostic [facility] [place] documented in this encounter Plan of Treatment Upcoming Encounters Date Type Department Care Team (Late st Contact Info) Description 10/26/2023 1:30 PM EDT Telemedicine Psychiatry Clarice Young [address] [phone] Mauri Macias DO [address] [facility] [place] [address] 12/02/2023 3:20 PM EDT Office Visit Neurology [employer] [address] [place] [address] Vanessa Eid PA-C [address] [place] [address] 12/06/2023 1:20 PM EDT Office Visit [facility] [address] [place] [facility] [place] [address] Ruben Gordillo MD [address] [place] [address] Health Maintenance Due Date Last Done Comments [...] filedocumented as of this encounter Care Teams Supervisor Shuttle Fitting Relationship Specialty Start Date End Date Ruben Gordillo MD [address] [place] [address] PCP - General Internal Medicine 02/05/22 documented as of this encounter
--- OUTSIDE RECORDS SUMMARY | 2023-10-20 08:58 | External Medical Summary | Summary of Care ---
Author Name Unknown Organization [facility] Address [address] [place] [address] Phone [phone] Care Team Providers Care Bat Lathe Operator Name Role Phone Ruben Gordillo MD Primary Care Provider [phone] Reason for Visit * Reason Comments eRx-Medication Refill Encounter Details Date Type Department Care Team ([facility] st Contact Info) Description 10/10/[address] [phone] Ruben Gordillo MD [address] [place] [address] Allergies Active Allergy Reactions Criticality Noted Date Comments Adhesive Tape 02/09/2023 Latex Rash 02/05/2022 Tramadol Nausea/vomiting 12/02/2014 documented as of this encounter (statuses as of 10/11/2023) Medications Medication Sig Dispensed Refills Start Date End Date Status GLUCOMETER ELITE CLASSIC KITIndications:DM type 2, not at goal (HCC) check blood sugar every morning when you get up 1 Kit 3 2 Active FreeStyle Sadiq 14 Day [place] Device Use as directed . 1 Each [...] MORNING 90 Tablet 3 3 Active Nystatin 009709 UNIT/GM External Cream Apply 1 g topically to affected area in the morning and 1 g before bedtime. To affacted area for two weeks.. 30 g 5 3 Active Gabapentin 300 MG Oral Capsule (Neurontin) Take 1 Capsule by mouth in the morning and 1 Capsule at noon and 1 Capsule before bedtime. 270 Capsule 1 3 Active Aspirin Low Dose 81 MG [...] BEFORE BEDTIME 60 Tablet 5 4 Active busPIRone HCl 10 MG Oral Tablet (Buspar) TAKE ONE TABLET BY MOUTH IN THE MORNING AND ONE BEFORE BEDTIME 60 Tablet 5 3 10/11/19 24 Discontinued documented as of this encounter (statuses as of 10/11/2023) Active Problems Problem Noted Date Diagnosed Date History of hip surgery 02/09/2023 Non healing left heel wound 11/10/2022 S/P angioplasty with stent 06/23/2022 Coronary artery disease of n ative artery of [place] heart with stable angina pectoris 06/23/2022 Ischemic [...] as of this encounter (statuses as of 10/11/2023) Resolved Problems Problem Noted Date Diagnosed Date [...] as of this encounter (statuses as of 10/11/2023) Immunizations Name Administration Dates Next Due Hepatitis [...] Telephone Encounter - Ruben Gordillo MD - 10/11/2023 2:58 PM EDTSigned Prescriptions: Disp Refills busPIRone HCl 10 MG Oral Tablet (Buspar) 60 Tab*5 Sig: TAKE ONE TABLET BY MOUTH IN THE MORNING AND ONE BEFORE BEDTIME Authorizing Provider: RUBEN GORDILLO * Telephone Encounter - Yosi Ellis RPh - 10/11/2023 2:13 PM EDT Refill pharmacists currently not authorized to approve refills for this class of medication per refill protocol. Please approve if appropriate. Thanks, Yosi Ellis, PharmD Clinical Pharmacist [facility] [phone] 10/11/2023, 2:13 PM * Telephone Encounter - Yosi Ellis RPh - 10/11/2023 2:13 PM EDT Pending Prescriptions: Disp Refills busPIRone HCl 10 MG Oral Tablet [Pharmacy *60 Tab*0 Sig: TAKE ONE TABLET BY MOUTH IN THE MORNING AND ONE BEFORE BEDTIME documented in this encounter Plan of Treatment Upcoming Encounters Date Type Department Care Team (Late st Contact Info) Description 10/26/2023 1:30 PM EDT Telemedicine Psychiatry [place] [address] [place] [phone] Mauri Macias DO [address] [place] [address] 12/02/2023 3:20 PM EDT Office Visit [facility] [address] [facility] [place] [address] Vanessa Eid PA-C [address] [facility] [place] [address] 12/06/2023 1:20 PM EDT Office Visit [facility] [address] [place] [address] Ruben Gordillo MD [address] [place] [address] Health Maintenance Due Date Last Done Comments [...] filedocumented as of this encounter Care Teams Bat Lathe Operator Relationship Specialty Start Date End Date Ruben Gordillo MD [address] [place] [address] PCP - General Internal Medicine 02/05/22 documented as of this encounter
--- OUTSIDE RECORDS SUMMARY | 2023-10-20 08:58 | External Medical Summary | Summary of Care ---
Author Name Unknown Organization [facility] Address [address] [place] [address] Phone [phone] Care Team Providers Care Size Tester Name Role Phone Ruben Gordillo MD Primary Care Provider [phone] Reason for Visit * Reason Comments eRx-Medication Refill Encounter Details Date Type Department Care Team (Late st Contact Info) Description 09/20/2023 Refill [facility] [address] [place] [address] Ruben Gordillo MD [address] [place] [address] Encounter for long-term (current) use of medications* Allergies Active Allergy Reactions Criticality Noted Date Comments Adhesive Tape 02/09/2023 Latex Rash 02/05/2022 Tramadol Nausea/vomiting 12/02/2014 documented as of this encounter (statuses as of 09/21/2023) Medications Medication Sig Dispensed Refills Start Date End Date Status GLUCOMETER ELITE CLASSIC KITIndications:DM type 2, not at goal (HCC) check blood sugar every morning when you get up 1 Kit 3 2 Active FreeStyle Sadiq 14 Day [place] Device Use as directed . 1 Each [...] THE MORNING 90 Tablet 3 3 Active busPIRone HCl 10 MG Oral Tablet (Buspar) TAKE ONE TABLET BY MOUTH IN THE MORNING AND ONE BEFORE BEDTIME 60 Tablet 5 3 Active Nystatin 791868 UNIT/GM External Cream Apply 1 g topically [...] hemoglobin A1c goal of less than 7.0% ([facility]) Inject 1.5 mg under the skin once a week. 2 mL 11 3 Active metFORMIN HCl ER 500 MG Oral Tablet Extended Release 24 Hour (Glucophage XR) TAKE 2 TABLETS BY MOUTH TWICE DAILY WITH MORNING AND EVENING MEALS 360 Tablet 3 3 Active Additional Information Patient taking differently: 500 mg Oral BID (799,1999), Reported on 06/29/2023 clonazePAM 0.5 MG Oral Tablet (KlonoPIN) Take 1 Tablet by mouth 2 times a day as needed for Anxiety. 60 Tablet 0 4 Active amLODIPine Besy-Benazepril HCl 5-20 MG Oral Capsule [...] hemoglobin A1c goal of less than 7.0% ([facility]) TAKE 1 TABLET BY MOUTH EVERY MORNING 30 Tablet 11 4 Active buPROPion HCl ER (XL) 450 MG Oral Tablet Extended Release 24 Hour (Forvifo XL) TAKE 1 TABLET BY MOUTH EVERY MORNING 30 Tablet 3 4 Active DULoxetine HCl 30 MG Oral Capsule Delayed Release Particles (Cymbalta) Take 1 Capsule by mouth in the morning. Take with the 60 mg capsule, for a total of 90 mg a day. 30 Capsule 0 4 Active Ramelteon 8 MG Oral Tablet (Rozerem) Take 1 Tablet by mouth at bedtime. 90 Tablet 1 4 Active BD Pen Needle Mini U/F 31G X 5 MM (Insulin Pen Needle)Indications: DM type 2, not at goal ([facility]) USE WITH INSULIN PEN 100 Each 3 [...] SPLIT TABLET 30 Tablet 5 4 Active Pantoprazole Sodium 40 MG Oral Tablet Delayed Release (Protonix) TAKE 1 TABLET BY MOUTH EVERY MORNING 30 minutes before the first meal of the day. do not crush, chew, or split tablet 30 Tablet 5 3 09/21/19 24 Discontinued documented as of this encounter (statuses as of 09/21/2023) Active Problems Problem Noted Date Diagnosed Date History of hip surgery 02/09/2023 Non healing left heel wound 11/10/2022 S/P angioplasty with stent 06/23/2022 Coronary artery disease of n ative artery of [place] heart with stable angina pectoris 06/23/2022 Ischemic [...] as of this encounter (statuses as of 09/21/2023) Resolved Problems Problem Noted Date Diagnosed Date [...] as of this encounter (statuses as of 09/21/2023) Immunizations Name Administration Dates Next Due Hepatitis [...] encounter Miscellaneous Notes * Telephone Encounter - Natasha Sams [facility] - 09/21/2023 12:42 PM EDTSigned Prescriptions: Disp Refills Pantoprazole Sodium 40 MG Oral Tablet Cris*30 Tab*5 Sig: TAKE 1TABLET BY MOUTH EVERY 30 MINUTES BEFORE THE FIRST MEAL OF THE DAY. DO NOT CRUSH, CHEW OR SPLIT TABLETAuthorizing Provider: Elsa GORDILLO User: NATASHA SAMS documented in this encounter Plan of Treatment Upcoming Encounters Date Type Department Care Team (Late st Contact Info) Description 10/08/2023 4:15 PM EDT Imaging Radiology [address] [place] [id number] 10/26/2023 1:30 PM EDT Telemedicine Psychiatry, [address] [place] [address] Mauri Macias DO [address] [place] [address] 12/02/2023 3:20 PM EDT Office Visit Neurology [facility] [place] [address] [facility] [place] [address] Vanessa Eid PA-C [address] [facility] [place] [address] 12/06/2023 1:20 PM EDT Office Visit [facility] [address] [place] [address] Ruben Gordillo MD [address] [place], [place] [phone] Scheduled Orders Name Type Priority Associated Diagnoses Orde r Schedule VITAMIN B12 Lab Routine Encounter for long-term (current) use of medications Expected: 09/21/2023 (Approximate), Expires: 09/20/2024 MAGNESIUM Lab Routine Encounter for long-term (current) use of medications Expected: 09/21/2023 (Approximate), Expires: 09/20/2024 Health Maintenance Due Date Last Done Comments [...] Not on filedocumented as of this encounter Visit Diagnoses Diagnosis Encounter for long-term (current) use of medications- Primary Encounter for long-term (current) use of other medications documented in this encounter Care Teams Size Tester Relationship Specialty Start Date End Date Ruben Gordillo MD [address] [place] [address] PCP - General Internal Medicine 02/05/22 documented as of this encounter
--- OUTSIDE RECORDS SUMMARY | 2023-10-20 08:58 | External Medical Summary | Summary of Care ---
Author Name Unknown Organization [facility] Address [address] [place] [address] Phone [phone] Care Team Providers Care Fisher Eel Spear Name Role Phone Ruben Gordillo MD Primary Care Provider [phone] Reason for Referral * Evaluate & Treat - Unlimited Visits (Within 10 days (routine)) - Authorized Specialty Diagnoses / Procedures Referred By Kike roberts Referred To Contact CARDIAC REHAB / Cardiology Diagnoses Coronary artery disease of [place]osh[place] artery of [place]osh[place] heart with stable angina pectoris (HCC) Rod Jones DO [address] [place] [address] Referral ID Status Reason Start Date Expiration Date Visits Requested Visits Authorized [id number] Authorized Specialty Services Required 09/27/[phone] Question Answer Referral Priority Within 10 days (routine) Where should this appointment be scheduled? [facility] Cardiac Rehabilitation Modality Virtual Based Cardiac Rehab Only Encounter Details Date Type Department Care Team (Late st Contact Info) Description 09/27/2023 Orders Only Cardiac Rehab Advanced, Virtual [address] [place] [address] [place] [address] Rod [facility] [address] [facility] [address] Coronary artery disease of [place] artery of [place]osh[place] heart with stable angina pectoris (HCC)* Allergies Active Allergy Reactions Criticality Noted Date Comments Adhesive Tape 02/09/2023 Latex Rash 02/05/2022 Tramadol Nausea/vomiting 12/02/2014 documented as of this encounter (statuses as of 09/27/2023) Medications Medication Sig Dispensed Refills Start Date End Date Status GLUCOMETER ELITE CLASSIC KITIndications:DM type 2, not at goal ([facility]) check blood sugar every morning when you get up 1 Kit 3 07/31/2011 Active FreeStyle Sadiq 14 Day [place] Device Use as directed . 1 Each [...] THE MORNING 90 Tablet 3 02/09/2023 Active busPIRone HCl 10 MG Oral Tablet (Buspar) TAKE ONE TABLET BY MOUTH IN THE MORNING AND ONE BEFORE BEDTIME 60 Tablet 5 04/12/2023 Active Nystatin 436974 UNIT/GM External Cream Apply 1 g topically [...] coated)Indications:D M type 2, not at goal ([facility]),HTN, goal below 130/80 TAKE 1 TABLET BY MOUTH EVERY MORNING 90 Tablet 1 04/22/2023 Active Dulaglutide 1.5 MG/0.5ML Subcutaneous Solution Pen-injector (Trulicity)Indicatio ns:Type 2 diabetes mellitus with hemoglobin A1c goal of less than 7.0% ([facility]) Inject 1.5 mg under the skin [...] as needed for Anxiety. 60 Tablet 0 06/29/2023 Active amLODIPine Besy-Benazepril HCl 5-20 MG Oral [...] a day. 30 Capsule 3 09/21/2023 Active documented as of this encounter (statuses as of 09/27/2023) Active Problems Problem Noted Date Diagnosed Date History of hip surgery 02/09/2023 Non healing left heel wound 11/10/2022 S/P angioplasty with stent 06/23/2022 Coronary artery disease of n ative artery of pai[place]shoshone heart with stable angina pectoris 06/23/2022 Ischemic [...] as of this encounter (statuses as of 09/27/2023) Resolved Problems Problem Noted Date Diagnosed Date [...] as of this encounter (statuses as of 09/27/2023) Immunizations Name Administration Dates Next Due Hepatitis [...] on file documented as of this encounter Progress Notes * Gogo Smalls, KEO - 09/27/2023 6:31 PM EDT Images from the original note were not included. 09/27/2023 Good Afternoon, We would like to let you know that your patient has chosen to participate in [employer]'s Virtual Cardiac Rehab program in partnership with [employer]. [employer] is a specialized company that specializes in providing cardiac rehab service. Our program is supervised by [employer] clinicians and includes all the diana of our in-person rehab programs, such as exercise training and heart healthy education. During the 12-week program, patients meet with an chocolate maker over video to work on their recovery 2-3 times per week to help support them and strengthen their heart. To begin the process of enrollment, Dr. Rod Jones, [facility] Dump Truck Driver has placed an outpatient cardiac rehabilitation referral for your patient to participate in our virtual program with [employer]. If you have any questions or concerns about this program, please contact Celia MCKENNA ACS EP-C Thank you, Cardiac Rehabilitation Staff [facility] [address] [place] [address] [email or web address] documented in this encounter Plan of Treatment Upcoming Encounters Date Type Department Care Team (Late st Contact Info) Description 10/08/2023 4:15 PM EDT Imaging Radiology [facility]st [facility], [place] [address] [facility] [place] [address] 10/26/2023 1:30 PM EDT [facility] [address] [place] [address] Mauri Macias DO [address] [place] [address] 12/02/2023 3:20 PM EDT Office Visit Neurology [facility] [address] [place] [address] Vanessa Eid PA-C [address] [place] [address] 12/06/2023 1:20 PM EDT Office Visit [facility] [address] [place] [phone] Ruben Gordillo MD [address], [place] [phone] Scheduled Referrals Name Type Priority Associated Diagnoses Orde r Schedule CARDIAC REHAB REFERRAL OP Referral Within 10 days (routine) Coronary artery disease of [place]osh[place] artery of [place]osh[place] heart with stable angina pectoris (HCC) Ordered: 09/27/2023 Health Maintenance Due Date Last Done Comments [...] as of this encounter Visit Diagnoses Diagnosis Coronary artery disease of [place]osh[place] artery of [place]shosh[place] heart with stable angina pectoris (HCC)- Primary documented in this encounter Care Teams Fisher Eel Spear Relationship Specialty Start Date End Date Ruben Gordillo MD [address] [place] [address] PCP - General Internal Medicine 02/05/22 documented as of this encounter
--- OUTSIDE RECORDS SUMMARY | 2023-10-20 08:58 | External Medical Summary | Summary of Care ---
Author Name Unknown Organization [facility] Address [address] [place] [address] Phone [phone] Care Team Providers Care Major General Name Role Phone Ruben Gordillo MD Primary Care Provider [phone] Reason for Visit * Reason Onset Date Comments Medication Refill 09/21/2023 Encounter Details Date Type Department Care Team (Late st Contact Info) Description 09/21/2023 Refill Psychiatry, [place] [address] [place], [place] [id number] Mauri De Leon, [address] [place], [place] [phone] Allergies Active Allergy Reactions Criticality Noted Date [...] 3 07/31/2011 Active FreeStyle Sadiq 14 Day [place] Device Use as directed . 1 Each [...] BEDTIME 60 Tablet 5 04/12/2023 Active Nystatin 462827 UNIT/GM External Cream Apply 1 g topically [...] mg Oral BID (0800,1999), Reported on 06/29/2023 clonazePAM 0.5 MG Oral [...] 07/21/2023 Active Jardiance 10 MG Oral Tablet (Empagliflozin)Nancy [...] Needle)Indications: DM type 2, not at goal ([facility]) USE WITH INSULIN PEN 100 Each 3 [...] a day. 30 Capsule 3 09/21/2023 Active DULoxetine HCl 30 MG Oral Capsule Delayed Release Particles (Cymbalta) Take 1 Capsule by mouth in the morning. Take with the 60 mg capsule, for a total of 90 mg a day. 30 Capsule 0 08/22/2023 09/21/19 24 Discontinu ed(Refill) documented as of this encounter (statuses as of 09/21/2023) Active Problems Problem Noted Date Diagnosed Date History of hip surgery 02/09/2023 Non healing left heel wound 11/10/2022 S/P angioplasty with stent 06/23/2022 Coronary artery disease of n ative artery of [place] heart with stable angina pectoris 06/23/2022 Ischemic [...] encounter Miscellaneous Notes * Telephone Encounter - Mauri De Leon DO - 09/21/2023 11:19 PM EDTSigned Prescriptions: Disp Refills DULoxetine HCl 30 MG Oral Capsule Delayed *30 Cap*3 Sig: Take 1Capsule by mouth in the morning. Take with the 60 mg capsule, for a total of 90 mg a day.Authorizing Provider: MAURI DE LEON * Telephone Encounter - Jessica Palmer LPN - 09/21/2023 2:49 PM EDT Pharmacy requesting refill on Cymbalta. Medication was last filled on 08/22/2023 with 0 refills. Patient last seen on 09/08/2023 with return appointment scheduled for 10/26/2023. Patient had 0 cancelled appointments and 0 NO SHOW appointments. documented in this encounter Plan of Treatment Upcoming Encounters Date Type Department Care Team (Late st Contact Info) Description 10/08/2023 4:15 PM EDT Imaging Radiology [facility]st [facility] [address] [facility] [place] [address] 10/26/2023 1:30 PM EDT Telemedicine Psychiatry, [place] [address] [place] [address] Mauri De Leon, [address] [place] [address] 12/02/2023 3:20 PM EDT Office Visit Neurology [facility] [address] [place] [address] Vanessa Eid PA-C [address] [place] [address] 12/06/2023 1:20 PM EDT Office Visit [place] [address] [place] [address] Ruben Gordillo MD [address] [place] [address] Health Maintenance Due Date Last Done Comments [...] filedocumented as of this encounter Care Teams Major General Relationship Specialty Start Date End Date Ruben Gordillo MD [address] [place] [address] PCP - General Internal Medicine 02/05/22 documented as of this encounter
--- OUTSIDE RECORDS SUMMARY | 2023-10-20 08:58 | External Medical Summary | Summary of Care ---
Author Name Unknown Organization [facility] Address [address] [place] [address] Phone [phone] Care Team Providers Care Hair Worker Name Role Phone Ruben Gordillo MD Primary Care Provider [phone] Reason for Visit * Reason Comments eRx-Medication Refill Encounter Details Date Type Department Care Team (Late st Contact Info) Description 09/28/2023 Refill [facility], [place] [address] [place], [place] [phone] Mauri Macias, [address] [place], [place] [phone] Allergies Active Allergy Reactions Criticality Noted Date Comments Adhesive Tape 02/09/2023 Latex Rash 02/05/2022 Tramadol Nausea/vomiting 12/02/2014 documented as of this encounter (statuses as of 09/28/2023) Medications Medication Sig Dispensed Refills Start Date End Date Status GLUCOMETER ELITE CLASSIC KITIndications:DM type 2, not at goal (HCC) check blood sugar every morning when you get up 1 Kit 3 2 Active FreeStyle Sadiq 14 Day [place] Device Use as directed . 1 Each [...] BEDTIME 60 Tablet 5 3 Active Nystatin 223535 UNIT/GM External Cream Apply 1 g topically [...] FOR ANXIETY 60 Tablet 0 4 Active clonazePAM 0.5 MG Oral Tablet (KlonoPIN) Take 1 Tablet by mouth 2 times a day as needed for Anxiety. 60 Tablet 0 4 09/28/19 24 Discontinued documented as of this encounter (statuses as of 09/28/2023) Active Problems Problem Noted Date Diagnosed Date History of hip surgery 02/09/2023 Non healing left heel wound 11/10/2022 S/P angioplasty with stent 06/23/2022 Coronary artery disease of n ative artery of [place] heart with stable angina pectoris 06/23/2022 Ischemic [...] as of this encounter (statuses as of 09/28/2023) Resolved Problems Problem Noted Date Diagnosed Date [...] as of this encounter (statuses as of 09/28/2023) Immunizations Name Administration Dates Next Due Hepatitis [...] money to buy more. Never true 05/24/20 Within the past 12 months, t he [...] encounter Miscellaneous Notes * Telephone Encounter - Cristal Adamson MD - 09/28/2023 9:33 AM EDT Signed Prescriptions: Disp Refills clonazePAM 0.5 MG Oral Tablet (KlonoPIN) 60 Tab*0 Sig: TAKE ONE TABLET BY MOUTH TWICE DAILY NEEDED FOR ANXIETYAuthorizing Provider: CRISTAL ADAMSON------ documented in this encounter Plan of Treatment Upcoming Encounters Date Type Department Care Team (Late st Contact Info) Description 10/08/2023 4:15 PM EDT Imaging Radiology [address] [facility] [place] [address] 10/26/2023 1:30 PM EDT Telemedicine Psychiatry, [place] [address] [place], [place] [phone] Mauri Macias DO [address] [place] [address] 12/02/2023 3:20 PM EDT Office Visit Neurology [facility] [place] [address] [facility] [place] [address] Vanessa Eid PA-C [address] [facility] [place] [address] 12/06/2023 1:20 PM EDT Office Visit [facility] [address] [place] [address] Ruben Gordillo MD [address] [place] [address] Health Maintenance Due Date Last Done Comments [...] filedocumented as of this encounter Care Teams Hair Worker Relationship Specialty Start Date End Date Ruben Gordillo MD [address] [place] [address] PCP - General Internal Medicine 02/05/22 documented as of this encounter
--- OUTSIDE RECORDS SUMMARY | 2023-10-20 08:59 | External Medical Summary | Summary of Care ---
Author Name Unknown Organization [facility] Address [address] [place] [address] Phone [phone] Care Team Providers Care Fun House Attendant Name Role Phone Ruben Gordillo MD Primary Care Provider [phone] Reason for Visit * Reason Comments eRx-Medication Refill Encounter Details Date Type Department Care Team (Late st Contact Info) Description 09/11/2023 Refill Neurology [facility] [place] [address] [place] [address] Naomi Duke PA-C [address] [place] [address] Allergies Active Allergy Reactions Criticality Noted Date Comments Adhesive Tape 02/09/2023 Latex Rash 02/05/2022 Tramadol Nausea/vomiting 12/02/2014 documented as of this encounter (statuses as of 09/14/2023) Medications Medication Sig Dispensed Refills Start Date End Date Status GLUCOMETER ELITE CLASSIC KITIndications:DM type 2, not at goal (HCC) check blood sugar every morning when you get up 1 Kit 3 2 Active FreeStyle Sadiq 14 Day [place] Device Use as directed . 1 Each [...] THE MORNING 90 Tablet 3 3 Active Pantoprazole Sodium 40 MG Oral Tablet Delayed Release (Protonix) TAKE 1 TABLET BY MOUTH EVERY MORNING 30 minutes before the first meal of the day. do not crush, chew, or split tablet 30 Tablet 5 3 Active busPIRone HCl 10 MG Oral Tablet (Buspar) TAKE ONE TABLET BY MOUTH IN THE MORNING AND ONE BEFORE BEDTIME 60 Tablet 5 3 Active Nystatin 796133 UNIT/GM External Cream Apply 1 g topically [...] coated)Indications: DM type 2, not at goal ([facility]),HTN, goal below 130/80 TAKE 1 TABLET BY MOUTH EVERY MORNING 90 Tablet 1 3 Active Dulaglutide 1.5 MG/0.5ML Subcutaneous Solution Pen-injector (Trulicity)Indicati ons:Type 2 diabetes mellitus with hemoglobin A1c goal of less than 7.0% ([facility]) Inject 1.5 mg under the skin once [...] Needle)Indications: DM type 2, not at goal ([facility]) USE WITH INSULIN PEN 100 Each 3 [...] or chew. 90 Capsule 3 4 Active Riboflavin 400 MG Oral Tablet TAKE 1 TABLET BY MOUTH EVERY MORNING 90 Tablet 3 4 Active Riboflavin 400 MG Oral Tablet TAKE 1 TABLET BY MOUTH EVERY MORNING 90 Tablet 2 3 09/14/19 24 Discontinued Magnesium Oxide -Mg Supplement 400 (240 Mg) MG Oral Tablet (Mag-Ox) TAKE 1 TABLET BY MOUTH EVERY MORNING 90 Tablet 2 3 09/13/19 24 Discontinued documented as of this encounter (statuses as of 09/14/2023) Active Problems Problem Noted Date Diagnosed Date History of hip surgery 02/09/2023 Non healing left heel wound 11/10/2022 S/P angioplasty with stent 06/23/2022 Coronary artery disease of n ative artery of [place] heart with stable angina pectoris 06/23/2022 Ischemic [...] as of this encounter (statuses as of 09/14/2023) Resolved Problems Problem Noted Date Diagnosed Date [...] as of this encounter (statuses as of 09/14/2023) Immunizations Name Administration Dates Next Due Hepatitis [...] encounter Miscellaneous Notes * Telephone Encounter - Geneva Houston RPh - 09/14/2023 11:50 AM EDTSigned Prescriptions: Disp Refills Riboflavin 400 MG Oral Tablet 90 Tab*3 Sig: TAKE 1 TABLET BY MOUTH EVERY MORNINGAuthorizing Provider: NAOMI DUKE User: GENEVA HOUSTON * Telephone Encounter - Shayne E-Rx Ss Inbound - 09/13/2023 6:09 AM EDT Pending Prescriptions: Disp Refills Riboflavin 400 MG Oral Tablet [Pharmacy Me*90 Tab*0 Sig: TAKE 1TABLET BY MOUTH EVERY MORNING documented in this encounter Plan of Treatment Upcoming Encounters Date Type Department Care Team (Late st Contact Info) Description 09/20/2023 2:30 PM EDT Office Visit [facility], [place] [address] [facility] [address] [place], [facility] [address] [facility] [address] 09/24/2023 3:30 PM EDT Imaging Radiology [facility] 1st [facility] [place] [address] [facility] [place] [address] 10/26/2023 1:30 PM EDT Telemedicine Psychiatry, [place] [address] [place] [address] Mauri Macias DO [address] [place] [address] 12/02/2023 3:20 PM EDT Office Visit Neurology [facility] [address] [place] [address] Naomi Duke PA-C [address] [place] [address] 12/06/2023 1:20 PM EDT Office Visit Family Practice, [place] [address] [facility] [phone] Ruben Gordillo MD [address] [place] [address] Health Maintenance Due Date Last Done Comments Pneumococcal Vaccine: Pediatrics (0 to 5 Years) and At-Risk Patients (6 to 64 Years) (2 of 2 - PCV) 02/22/2013 02/23/2012 Diabetic Foot Exam 12/01/2015 11/30/2014, 0 01/29/2014, 01/11/2013, Additional history exists Cologuard 2021 Colonoscopy 2021 Colorectal Cancer Screening 2021 Fecal Occult Blood Test 2021 Sigmoidoscopy 2021 COVID-19 Vaccine ( season) 2023 HbA1c 12/17/2023 06/18/2023, 1112/2022, 01/11/2023, Additional history exists Diabetic Eye Exam [...] filedocumented as of this encounter Care Teams Fun House Attendant Relationship Specialty Start Date End Date Ruben Gordillo MD [address] [place] [address] PCP - General Internal Medicine 02/05/22 documented as of this encounter
--- OUTSIDE RECORDS SUMMARY | 2023-10-20 08:59 | External Medical Summary | Summary of Care ---
Author Name Unknown Organization [facility] Address [address] [place] [address] Phone [phone] Care Team Providers Care Retail Service Representative Name Role Phone Ruben Gordillo MD Primary Care Provider [phone] Reason for Visit * Reason Onset Date Comments Appointment 09/07/2023 PT order Encounter Details Date Type Department Care Team ([facility] st Contact Info) Description 09/07/2023 Telephone [facility] [address] [place] [address] Ruben Gordillo MD [address] [place], [place] [phone] Appointment (PT order) Allergies Active Allergy Reactions Criticality Noted Date Comments Adhesive Tape 02/09/2023 Latex Rash 02/05/2022 Tramadol Nausea/vomiting 12/02/2014 documented as of this encounter (statuses as of 09/13/2023) Medications Medication Sig Dispensed Refills Start Date End Date Status GLUCOMETER ELITE CLASSIC KITIndications:DM type 2, not at goal (HCC) check blood sugar every morning when you get up 1 Kit 3 2 Active FreeStyle Sadiq 14 Day [place] Device Use as directed . 1 Each 1 2 Active FreeStyle Sadiq 14 Day Sensor Use as directed . 1 Each 11 2 Active Fiber/D3 Adult Gummies 2.5-500 GM-UNIT Oral Tablet Chewable (Inulin-Cholecalci ferol) Take by mouth. 0 Active Riboflavin 400 MG Oral Tablet TAKE 1 TABLET BY MOUTH EVERY MORNING 90 Tablet 2 3 Active Metoprolol Succinate ER 25 MG Oral [...] BEDTIME 60 Tablet 5 3 Active Nystatin 849170 UNIT/GM External Cream Apply 1 g topically [...] MG Oral Tablet Delayed Release (aspirin enteric coated)Indications :DM type 2, not at goal ([facility]),HTN, goal below 130/80 TAKE 1 TABLET BY MOUTH EVERY MORNING 90 Tablet 1 3 Active Dulaglutide 1.5 MG/0.5ML Subcutaneous Solution Pen-injector (Trulicity)Indicat ions:Type 2 diabetes mellitus with hemoglobin A1c goal of less than 7.0% ([facility]) Inject 1.5 mg under the skin once a week. 2 mL 3 Active metFORMIN HCl ER 500 MG [...] Active Clopidogrel Bisulfate 75 MG Oral Tablet (pLAVix)Indication s:Ischemic cardiomyopathy Take 1 Tablet by mouth every afternoon. 90 Tablet 3 4 Active Atorvastatin Calcium 40 MG Oral Tablet (Lipitor)Indicatio ns:Dyslipidemia, goal LDL below 100 Take 1 Tablet by mouth in the morning. 90 Tablet 3 4 Active Jardiance 10 MG Oral Tablet (Empagliflozin)Ind ications:Type 2 diabetes mellitus with hemoglobin A1c goal [...] U/F 31G X 5 MM (Insulin Pen Needle)Indications :DM type 2, not at goal ([facility]) USE WITH INSULIN PEN 100 Each 3 [...] cut, crush or chew. 90 Capsule 3 3 024 Discontinued(Re fill) Magnesium Oxide -Mg Supplement 400 (240 Mg) MG Oral Tablet (Mag-Ox) TAKE 1 TABLET BY MOUTH EVERY MORNING 90 Tablet 2 3 024 Discontinued documented as of this encounter (statuses as of 09/13/2023) Active Problems Problem Noted Date Diagnosed Date History of hip surgery 02/09/2023 Non healing left heel wound 11/10/2022 S/P angioplasty with stent 06/23/2022 Coronary artery disease of n ative artery of [place] heart with stable angina pectoris 06/23/2022 Ischemic [...] as of this encounter (statuses as of 09/13/2023) Resolved Problems Problem Noted Date Diagnosed Date [...] as of this encounter (statuses as of 09/13/2023) Immunizations Name Administration Dates Next Due Hepatitis [...] encounter Miscellaneous Notes * Telephone Encounter - Constance Burk OSA - 09/13/2023 8:45 AM EDT LMOM to schedule. Letter sent with copy of Physical Therapy order. 09/13/2023 * Telephone Encounter - Constance Burk OSA - 09/09/2023 10:08 AM EDT Myg sent. 09/09/2023 * Telephone Encounter - Constance Burk OSA - 09/07/2023 2:42 PM EDT LMOM asking to patient where he wants to go to for Physical Therapy. 09/07/2023 documented in this encounter Plan of Treatment Upcoming Encounters Date Type Department Care Team (Late st Contact Info) Description 09/20/2023 2:30 PM EDT Office Visit Pharmacy, [place] [address] [facility] [address] [place], [facility] [address] [place] [address] 09/24/2023 3:30 PM EDT Imaging Radiology [facility] 1st [facility] [place] [address] [place] [address] 10/26/2023 1:30 PM EDT Telemedicine Psychiatry, [place] [address] [place] [address] Mauri Macias, [address] [place] [address] 12/02/2023 3:20 PM EDT Office Visit Neurology [facility] [address] [place] [address] Vanessa Eid PA-C [address] [place] [address] 12/06/2023 1:20 PM EDT [facility] [address] [place] [facility] [place] [address] Ruben Gordillo MD [address] [place] [address] Health Maintenance Due Date Last Done Comments Pneumococcal Vaccine: Pediatrics (0 to 5 Years) and At-Risk Patients (6 to 64 Years) (2 of 2 - PCV) 02/22/2013 02/23/2012 Diabetic Foot Exam 12/01/2015 11/30/2014, 0 01/29/2014, 01/11/2013, Additional history exists Cologuard 2021 Colonoscopy 2021 Colorectal Cancer Screening 2021 Fecal Occult Blood Test 2021 Sigmoidoscopy 2021 COVID-19 Vaccine (2022- season) 2023 HbA1c 12/17/2023 06/18/2023, 11/0 12/2022, 01/11/2023, Additional history exists Diabetic Eye Exam 12/22/2023 12/21/2022, , 01/11/2013, Additional history exists Albumin/Creatinine Ratio 01/12/2024 023, 11/30/2014, 01/11/2013, Additional history exists Influenza Vaccine (FLU shot) (Season Ended) 2024 02/25/2015, 05/02/2013, 02/23/2012 Depression Screening 09/01/2024 09/02/2023 GFR 09/01/2024 09/02/2023, 06/07, 04/13/2023, Additional history [...] filedocumented as of this encounter Care Teams Retail Service Representative Relationship Specialty Start Date End Date Ruben Gordillo MD [address] [place] [address] PCP - General Internal Medicine 02/05/22 documented as of this encounter
--- OUTSIDE RECORDS SUMMARY | 2023-10-20 08:59 | External Medical Summary | Summary of Care ---
Author Name Unknown Organization [facility] Address [address] [place] [address] Phone [phone] Care Team Providers Care Certified Tower Climber Name Role Phone Ruben Gordillo MD Primary Care Provider [phone] Reason for Visit * Reason Comments eRx-Medication Refill Encounter Details Date Type Department Care Team (Late st Contact Info) Description 09/09/2023 Refill Neurology [facility] [place] [address] [place] [address] Vanessa Duke PA-C [address] [place] [address] Allergies Active Allergy Reactions Criticality Noted Date [...] 3 2 Active FreeStyle Sadiq 14 Day Bunker Device Use as directed . 1 Each 1 2 Active FreeStyle Sadiq 14 Day Sensor Use as directed . 1 Each 11 2 Active Fiber/D3 Adult Gummies 2.5-500 GM-UNIT Oral Tablet Chewable (Inulin-Cholecalcif venessa) Take by mouth. 0 Active Riboflavin 400 [...] BEDTIME 60 Tablet 5 3 Active Nystatin 141098 UNIT/GM External Cream Apply 1 g topically [...] than 7.0% (FORMERLY [facility]) Inject 1.5 mg under the skin once [...] EVERY MORNING 90 Tablet 0 4 Active Magnesium Oxide -Mg Supplement 400 [...] artery disease of n ative artery of [place] heart with stable angina pectoris 06/23/2022 Ischemic [...] encounter Miscellaneous Notes * Telephone Encounter - Vanessa Duke PA-C - 09/13/2023 7:51 AM EDT Signed Prescriptions: Disp Refills Magnesium Oxide -Mg Supplement 400 (240 Mg*90 Tab*0 Sig: TAKE 1 TABLET BY MOUTH EVERY MORNING Authorizing Provider: VANESSA DUKE * Telephone Encounter - Interface, E-Rx Ss Inbound - 09/13/2023 6:04 AM EDT Pending Prescriptions: Disp Refills Magnesium Oxide -Mg Supplement 400 (240 Mg*90 Tab*0 Sig: TAKE 1 TABLET BY MOUTH EVERY MORNING * Telephone Encounter - Shayne, E-Rx Ss Inbound - 09/11/2023 6:03 AM EDT Pending Prescriptions: Disp Refills Magnesium Oxide -Mg Supplement 400 (240 Mg*90 Tab*0 Sig: TAKE 1 TABLET BY MOUTH EVERY MORNING * Telephone Encounter - Debbie Valencia, MED ASSIST - 09/10/2023 7:52 AM EDT Pending Prescriptions: Disp Refills Magnesium Oxide -Mg Supplement 400 (240 Mg*90 Tab*0 Sig: TAKE 1 TABLET BY MOUTH EVERY MORNING * Telephone Encounter - Zoë Hopson - 09/09/2023 9:14 PM EDTPending Prescriptions: Disp Refills Magnesium Oxide -Mg Supplement 400 (240 Mg*90 Tab*0 Sig: TAKE 1 TABLET BY MOUTH EVERY MORNING * Telephone Encounter - Zoë Hopson - 09/09/2023 9:12 PM EDT Did you pend patient's preferred pharmacy and medication before forwarding?yes Pharmacy: [id number] Pending Prescriptions: Disp Refills Magnesium Oxide -Mg Supplement 400 (240 M*90 Tab*0 Sig: TAKE 1 TABLET BY MOUTH EVERY MORNING Last Visit: 09/01/2023 (in office), Visit date not found (telemedicine) Next Visit: 12/02/2023 If no future appointments scheduled, and last appointment is greater than a year ago, please schedule patient for a follow-up appointment Last date the medication was ordered: 12/18/2022 Is this request for a controlled substance?No Urine Drug Screen:No results found for this or any previous visit. Patient Phone Numbers Labs: Lab Results Component Value Date/Time CREAT 2.2 (H) 09/02/2023 01:57 PM CREAT 0.80 02/02/2023 12:00 AM CREAT 0.7 11/30/2014 03:41 PM POTASSIUM 4.9 09/02/2023 01:57 PM POTASSIUM 3.9 02/02/2023 12:00 AM POTASSIUM 4.0 11/30/2014 03:41 PM TSH 1.55 03/11/2022 01:37 PM LDLCALC 59 06/18/2023 09:53 AM LDLCALC UNINTERPRETABLE RESULT 01/11/2013 08:54 AM LDLDIRECT 217 (H) 11/30/2014 03:41 PM ALT 39 09/02/2023 01:57 PM ALT 35 07/13/2015 12:00 AM ALT 24 11/30/2014 03:41 PM HGBA1C 5.9 (H) 06/18/2023 09:53 AM HGBA1C 12.2 (H) 11/30/2014 03:41 PM documented in this encounter Plan of Treatment Upcoming Encounters Date Type Department Care Team (Late st Contact Info) Description 09/20/2023 2:30 PM EDT Office Visit Pharmacy, [facility] [address] [id number] [facility] [address] [place] [address] 09/24/2023 3:30 PM EDT Imaging Radiology [facility], [place] [address] [place] [address] 10/26/2023 1:30 PM EDT Telemedicine Psychiatry, [place] [address] [place] [address] Mauri Macias, [address] [place] [address] 12/02/2023 3:20 PM EDT [facility] [address] [place] [address] Vanessa Duke PA-C [address] [place] [address] 12/06/2023 1:20 PM EDT Office Visit [facility] [address] [place] [address] Ruben Gordillo MD [address] [place] [address] Health Maintenance Due Date Last Done Comments [...] filedocumented as of this encounter Care Teams Certified Tower Climber Relationship Specialty Start Date End Date Ruben Gordillo MD [address] [place] [address] PCP - General Internal Medicine 02/05/22 documented as of this encounter
[2023-10-20] MEDS: ACETAMINOPHEN 325 MG TAB PO PRN (09:45)
[2023-10-20] MEDS: clonazePAM 0.5 MG TAB PO PRN (09:45)
[2023-10-20] MEDS: MONTELUKAST SODIUM 10 MG TABLET PO SCH (09:46)
--- NOTE | 2023-10-20 09:55 | Nephrology Consultation ---
Date of Consultation October 20, 2023 Assessment & Plan (1) SAMANTHA (acute kidney injury): He had normal kidney function with a creatinine of 1.1 as of June 2023. He was already starting to have abnormal creatinine in August with a outpatient blood work showing creatinine of 2.2. no follow-up blood work after that. at this point given the bilateral hydronephrosis the etiology of worsened kidney function has to be obstructive uropathy from bladder outlet obstruction causing bilateral hydronephrosis. creatinine today is slightly better than yesterday after placement of Pierce catheter. for now continue Pierce catheter reviewed Urology note. I expect his kidney function to be somewhat better in the coming days and even may get back to normal. however with his underlying diabetes and complications related with diabetes his long-term renal prognosis is still bad. he does need to be followed with Nephrology. he has massive amount of proteinuria at this time but he has not acting like a patient with nephrotic syndrome -- albumin normal at 4.1 on admission yesterday and he does not have any edema at all. also with gross hematuria and urinary retention with bilateral hydronephrosis it is hard to accurately interpret the urine finding. will address this proteinuria as an outpatient. he is eating and drinking very normally and so no need of IV fluid. (2) Acute urinary retention: (3) Hydronephrosis: significant bladder outlet obstruction causing urinary retention with bilateral hydronephrosis and now requiring Pierce catheter. already evaluated by Urology. etiology of bladder outlet obstruction could be spinal stenosis with neurological complications and/or complications related with diabetic neurogenic bladder. given his very young age will have to consider alternate method of urinary drainage. Will defer this to Urology. he does have significant gross hematuria at this time and may need continuous bladder irrigation. Plan plan discussed with hospitalist. Urology note reviewed. Outpatient MRI as well as course of events noted and reviewed. History of Present Illness Reason for Consultation: SAMANTHA Attending Physician: Daron Negron MD History of Present Illness 48/M with many medical issues despite young age. he has CAD with hx of POLY x 2 06/2022, T2DM, diabetic neuropathy, HTN, HLD, chronic HFrEF, history of ischemic cardiomyopathy, history of left central retinal artery occlusion, bipolar depression, generalized anxiety, history of tobacco abuse who presented to ED at the referral of PCP due to abnormal MRI results. He recently underwent an MRI of his lumbar spine per neurology due to progressing urinary incontinence which showed spinal stenosis, distended bladder and hydronephrosis. MRI was performed in early October. He also had abnormal lab work in August which showed an elevated creatinine at 2.2. Outpatient provider reached out to ask a doc urology who recommended patient have a Pierce placed. Creat on admission was 2.35 and this AM is down to 1.9. He has pierce placed after CT abdomen showed b/l Hydronephrosis with MARTINEZ. urology have seen the patient. Also having some gross hematuria with pierce. ROS--see HPI. 12 systems reviewed otherwise. +ve for urinary frequency and incontinence Physical Exam Constitutional: well developed and well nourished; no acute distress Respiratory: normal respiratory effort; no respiratory distress and no labored breathing Musculoskeletal: Head/Neck/Chest: normocephalic CVC RRR. no murmur. no edema Neurologic: moves all extremities and awake alert. normal speech Psychiatric: euthymic affect Genitourinary: Pierce draining w/hematuria Allergies Allergy/AdvReac Type Severity Reaction Status Date / Time adhesive Allergy Intermediate Contact Verified 10/19/23 15:10 dermatitis latex Allergy Mild RASH Verified 10/19/23 15:10 tramadol Allergy Unknown n/v Verified 10/19/23 15:10 Home Medications Medication Instructions Recorded Confirmed Type gabapentin 300 mg capsule 300 mg PO TID 06/16/22 10/19/23 History montelukast 10 mg tablet 10 mg PO QAM 06/16/22 10/19/23 History pantoprazole 40 mg tablet,delayed 40 mg PO QAM 06/16/22 10/19/23 History release aspirin 81 mg tablet,delayed 81 mg PO QAM 01/31/23 10/19/23 History release buspirone 10 mg tablet 10 mg PO BID 01/31/23 10/19/23 History cholecalciferol (vitamin D3) 25 25 mcg PO QDL 01/31/23 10/19/23 History mcg (1,000 unit) capsule (Vitamin D3) duloxetine 60 mg capsule,delayed 60 mg PO QAM 01/31/23 10/19/23 History release empagliflozin 10 mg tablet 10 mg PO QAM 01/31/23 10/19/23 History (Jardiance) naloxone 4 mg/actuation nasal spray 1 spray intranasal DIRECTED 01/31/23 10/19/23 History amlodipine 5 mg-benazepril 20 mg 1 cap PO DAILY 10/19/23 10/19/23 History capsule atorvastatin 40 mg tablet 40 mg PO QAM 10/19/23 10/19/23 History bupropion HCl 450 mg 24 hr tablet, 450 mg PO QAM 10/19/23 10/19/23 History extended release clonazepam 0.5 mg tablet 0.5 mg PO BID PRN Anxiety 10/19/23 10/19/23 History clopidogrel 75 mg tablet 75 mg PO DAILYBL 10/19/23 10/19/23 History dulaglutide 1.5 mg/0.5 mL 1.5 mg subcut TU 10/19/23 10/19/23 History subcutaneous pen injector (Trulicity) duloxetine 30 mg capsule,delayed 30 mg PO QAM 10/19/23 10/19/23 History release magnesium oxide 400 mg (241.3 mg 400 mg PO QAM 10/19/23 10/19/23 History magnesium) tablet metformin 500 mg tablet,extended 500 mg PO BID 10/19/23 10/19/23 History release 24 hr metoprolol succinate 25 mg 25 mg PO BID 10/19/23 10/19/23 History tablet,extended release 24 hr oxybutynin chloride 10 mg 10 mg PO QAM 10/19/23 10/19/23 History tablet,extended release 24 hr ramelteon 8 mg tablet 8 mg PO HS PRN Sleep 10/19/23 10/19/23 History Patient History Medical History Noncompliance Central retinal artery occlusion, left eye Diabetic peripheral neuropathy Surgical History S/P arthroscopic knee surgery History of dental surgery Family History Other Cancer Diabetes Hypertension Social History Smoking Status: Former smoker Second Hand Exposure: No; Do You Dip or Chew Tobacco: Yes; Hx Alcohol Use: Yes Alcohol type: beer Hx Substance Use: No Preferred Language: Italian Communication Ability: Effective Rounding Machine Tender Required: No Beliefs That Will Affect Care: None Current Living Situation: Family Current Living Situation Comment: Lives with parents Feels Safe at Home: Yes Assistive Devices: Cane, Glasses and Wheelchair Results & Data Vital Signs (Past 12 Hours) Vital Signs Temp Pulse Pulse Resp BP BP Pulse Ox 10/20/23 07:35 36.7 C 90 14 112/78 98 10/20/23 06:30 90 10/20/23 03:11 36.5 C 89 18 136/93 98 10/20/23 01:15 90 10/20/23 00:54 36.5 C 87 18 130/85 99 10/19/23 23:30 88 17 99 10/19/23 23:30 128/91 10/19/23 23:00 139/97 10/19/23 23:00 87 14 99 10/19/23 23:00 10/19/23 23:00 88 17 128/91 100 10/19/23 22:30 144/100 H 10/19/23 22:30 87 16 99 10/19/23 22:00 88 16 99 Pulse Ox O2 Del Method O2 Del Method 10/20/23 07:35 Room Air 10/20/23 06:30 10/20/23 03:11 Room Air 10/20/23 01:15 10/20/23 00:54 Room Air 10/19/23 23:30 10/19/23 23:30 10/19/23 23:00 10/19/23 23:00 10/19/23 23:00 100 Room Air 10/19/23 23:00 Room Air 10/19/23 22:30 10/19/23 22:30 10/19/23 22:00 Laboratory Results reviewed Diagnostic Findings Reviewed.
--- NOTE | 2023-10-20 10:12 | Urology Progress Note ---
Date of Service October 20, 2023 Assessment & Plan (1) Urinary retention: (2) Hydronephrosis: (3) SAMANTHA (acute kidney injury): Plan 48yo/M admitted with acute urinary retention, SAMANTHA, hydronephrosis. CT abdomen pelvis was notable for bilateral hydronephrosis likely secondary to bladder distention and Medrano catheter present within the decompressed urinary bladder with circumferential bladder wall thickening and intraluminal debris. Urology consulted for urinary retention and hematuria. He is afebrile and hemodynamically stable. Labs show leukocytosis 15.88, hemoglobin 12.3, and creatinine downtrending 2.35 -1.92 today. Urine culture pending. He is on empiric ceftriaxone. Unclear etiology for hematuria at this time, may be related to traumatic catheter or rapid decompression of a full bladder. Medrano catheter currently draining light red urine. Pt required manual irr igation earlier this morning. Continue to monitor urine output. Bladder scan as needed. Okay to manually irrigate as needed for clots, retention, suprapubic pain. If patient continues to have hematuria with clot, may need to consider upsizing catheter and initiating CBI. Consider addition of oxybutynin PRN and Pyridium PRN bladder pain/spasms. No plan for acute urological intervention at this time. He will need full hematuria work-up with cystoscopy in the future but this can be completed as outpatient. Anticoagulation per primary team. Urology can manage hematuria as needed. Urology will follow along. Admission and Anticipated Discharge Date Admission Date: October 19, 2023 Subjective Patient seen at bedside this morning No acute distress Medrano draining light red urine He did require manual irrigation of the catheter by nursing earlier this morning Denies f/c/n/v Reports some LLQ discomfort No suprapubic pressure/pain Review of Systems Constitutional: as per Subjective / HPI Genitourinary: + as per Subjective / HPI Physical Exam Constitutional: no acute distress Respiratory: no respiratory distress and no labored breathing Skin: No visible rashes or lesions to exposed skin areas Neurologic: awake Psychiatric: A+Ox3, euthymic affect Genitourinary: Medrano intact and draining w/hematuria Results & Data Vital Signs (Past 12 Hours) Vital Signs Temp Pulse Pulse Resp BP BP Pulse Ox 10/20/23 08:00 10/20/23 07:35 36.7 C 90 14 112/78 98 10/20/23 06:30 90 10/20/23 03:11 36.5 C 89 18 136/93 98 10/20/23 01:15 90 10/20/23 00:54 36.5 C 87 18 130/85 99 10/19/23 23:30 88 17 99 10/19/23 23:30 128/91 10/19/23 23:00 139/97 10/19/23 23:00 87 14 99 10/19/23 23:00 10/19/23 23:00 88 17 128/91 100 10/19/23 22:30 144/100 H 10/19/23 22:30 87 16 99 Pulse Ox O2 Del Method O2 Del Method 10/20/23 08:00 Room Air 10/20/23 07:35 Room Air 10/20/23 06:30 10/20/23 03:11 Room Air 10/20/23 01:15 10/20/23 00:54 Room Air 10/19/23 23:30 10/19/23 23:30 10/19/23 23:00 10/19/23 23:00 10/19/23 23:00 100 Room Air 10/19/23 23:00 Room Air 10/19/23 22:30 10/19/23 22:30 PG Care Time/CCT Total # of Minutes Spent Total Time Spent with Patient: Total time spent is greater than 50% in coordination of care (as documented) at patient's floor/unit and/or counseling patient: Coding Level of Care Code 65465 SUB INP/OBS CARE 2/35MIN Diagnoses Urinary retention R33.9 Hydronephrosis N13.30 SAMANTHA (acute kidney injury) N17.9
[2023-10-20] MEDS: CHOLECALCIFEROL 25 MCG (1000 UNITS) TAB PO SCH (11:10)
--- NOTE | 2023-10-20 11:20 | Orthopedic Consultation ---
Date of Consultation October 20, 2023 Assessment & Plan (1) Chronic back pain greater than 3 months duration: Assessment chronic back pain. Plan I had the opportunity to review his recent MRI performed at [facility] lumbar spine. I appreciate no gross neural compression or spinal disease. Any evidence of stenosis is subtle at best. At this point his symptoms appear to be more axial in nature. He again has had a history of narcotic dependence and does not want to repeat any utilization of narcotics for pain. I discussed possible consultation with pain management. He will consider this. Otherwise I recommend physical therapy activity as tolerated but there is no surgical indication at this time. History of Present Illness Reason for Consultation: Chronic back pain Attending Physician: Daron Negron MD History of Present Illness This is a pleasant 48-year-old male who presents the emergency room with multiple medical issues. He also has a history of chronic persistent back pain for over 10 years. He has also had describes episodes of his legs getting weak and giving out. He states it has been several months since he is experienced the symptoms. He does describe in detail history of undergoing medical management for back pain approximately 9 years ago. He was on significant doses of oxycodone at this time. He is very concerned that he not repeat this form of treatment. He has not used narcotics since that time. At this point he denies any radicular complaints. He notes a history of neuropathy. His symptoms are predominantly in the lumbosacral junction and cervical region are not related to any specific activity. They do wake him up from sleep. Allergies Allergy/AdvReac Type Severity Reaction Status Date / Time adhesive Allergy Intermediate Contact Verified 10/19/23 15:10 dermatitis latex Allergy Mild RASH Verified 10/19/23 15:10 tramadol Allergy Unknown n/v Verified 10/19/23 15:10 Home Medications Medication Instructions Recorded Confirmed Type gabapentin 300 mg capsule 300 mg PO TID 06/16/22 10/19/23 History montelukast 10 mg tablet 10 mg PO QAM 06/16/22 10/19/23 History pantoprazole 40 mg tablet,delayed 40 mg PO QAM 06/16/22 10/19/23 History release aspirin 81 mg tablet,delayed 81 mg PO QAM 01/31/23 10/19/23 History release buspirone 10 mg tablet 10 mg PO BID 01/31/23 10/19/23 History cholecalciferol (vitamin D3) 25 25 mcg PO QDL 01/31/23 10/19/23 History mcg (1,000 unit) capsule (Vitamin D3) duloxetine 60 mg capsule,delayed 60 mg PO QAM 01/31/23 10/19/23 History release empagliflozin 10 mg tablet 10 mg PO QAM 01/31/23 10/19/23 History (Jardiance) naloxone 4 mg/actuation nasal spray 1 spray intranasal DIRECTED 01/31/23 10/19/23 History amlodipine 5 mg-benazepril 20 mg 1 cap PO DAILY 10/19/23 10/19/23 History capsule atorvastatin 40 mg tablet 40 mg PO QAM 10/19/23 10/19/23 History bupropion HCl 450 mg 24 hr tablet, 450 mg PO QAM 10/19/23 10/19/23 History extended release clonazepam 0.5 mg tablet 0.5 mg PO BID PRN Anxiety 10/19/23 10/19/23 History clopidogrel 75 mg tablet 75 mg PO DAILYBL 10/19/23 10/19/23 History dulaglutide 1.5 mg/0.5 mL 1.5 mg subcut TU 10/19/23 10/19/23 History subcutaneous pen injector (Trulicity) duloxetine 30 mg capsule,delayed 30 mg PO QAM 10/19/23 10/19/23 History release magnesium oxide 400 mg (241.3 mg 400 mg PO QAM 10/19/23 10/19/23 History magnesium) tablet metformin 500 mg tablet,extended 500 mg PO BID 10/19/23 10/19/23 History release 24 hr metoprolol succinate 25 mg 25 mg PO BID 10/19/23 10/19/23 History tablet,extended release 24 hr oxybutynin chloride 10 mg 10 mg PO QAM 10/19/23 10/19/23 History tablet,extended release 24 hr ramelteon 8 mg tablet 8 mg PO HS PRN Sleep 10/19/23 10/19/23 History Patient History Medical History Noncompliance Central retinal artery occlusion, left eye Diabetic peripheral neuropathy Surgical History S/P arthroscopic knee surgery History of dental surgery Family History Other Cancer Diabetes Hypertension Social History (Updated 10/19/23 @ 15:30 by Mari Montgomery PA-C) Smoking Status: Former smoker Second Hand Exposure: No; Do You Dip or Chew Tobacco: Yes; Hx Alcohol Use: Yes Alcohol type: beer Hx Substance Use: No Preferred Language: Filipino Communication Ability: Effective Personalized Living Manager Nurse Required: No Beliefs That Will Affect Care: None Current Living Situation: Family Current Living Situation Comment: Lives with parents Feels Safe at Home: Yes Assistive Devices: Cane, Glasses and Wheelchair Physical Exam Physical Exam: On exam patient is alert cooperative. He has reasonable strength testing extremities. Sensory appears to be symmetric and intact. There is no abnormal skin markings lumbar spine or tenderness. Results & Data Vital Signs (Past 12 Hours) Vital Signs Temp Pulse Pulse Resp BP BP Pulse Ox 10/20/23 11:07 36.8 C 95 H 16 110/74 97 10/20/23 08:00 10/20/23 07:35 36.7 C 90 14 112/78 98 10/20/23 06:30 90 10/20/23 03:11 36.5 C 89 18 136/93 98 10/20/23 01:15 90 10/20/23 00:54 36.5 C 87 18 130/85 99 10/19/23 23:30 88 17 99 10/19/23 23:30 128/91 O2 Del Method 10/20/23 11:07 Room Air 10/20/23 08:00 Room Air 10/20/23 07:35 Room Air 10/20/23 06:30 10/20/23 03:11 Room Air 10/20/23 01:15 10/20/23 00:54 Room Air 10/19/23 23:30 10/19/23 23:30
[2023-10-20] MEDS: oxyCODONE/ACETAMINOPHEN 5mg/325mg TAB PO PRN (14:43)
[2023-10-20] MEDS: PHENAZOPYRIDINE HCL 100 MG TAB PO PRN (15:17)
--- NOTE | 2023-10-20 16:06 | Hospitalist Progress Note ---
Date of Service October 20, 2023 Assessment & Plan (1) Lumbar spinal stenosis: (2) Urinary retention: (3) Hydronephrosis: (4) SAMANTHA (acute kidney injury): (5) Type 2 diabetes mellitus with diabetic neuropathy, unspecified: (6) CAD (coronary artery disease): (7) Bipolar 1 disorder, depressed: Plan Patient is a 48 yr male who has significant past medical history of CAD with hx of POLY x 2 06/2022, T2DM, diabetic neuropathy, HTN, HLD, chronic HFrEF, history of ischemic cardiomyopathy, history of left central retinal artery occlusion, bipolar depression, generalized anxiety, history of tobacco abuse who presents to ED at the referral of PCP due to abnormal MRI results. Urinary retention Obstructive uropathy with bilateral hydroureteronephrosis Acute kidney injury due to above --CT ABD: A Medrano catheter is present within a decompressed urinary bladder. Circumferential urinary bladder wall thickening with intraluminal debris/possible blood products. Correlate with urinalysis. Moderate generally symmetric bilateral hydroureteronephrosis may be secondary to the reported urinary bladder retention. No urolith identified. No bowel obstruction or bowel wall thickening. Cholelithiasis. -- Urine culture likely contaminated -- Oxybutynin discontinued Continue Medrano catheter Empirically on Rocephin Continue Flomax Urology on board Hematuria ? Traumatic catheter Monitor CBC Appreciate urology input May need continuous bladder irrigation if hematuria worsens Will eventually need cystoscopy as outpatient Hold Plavix Hematuria slowly improving, will need to hold Aspirin if hematuria worsens Acute kidney injury Proteinuria Outpt chart review revealed Cr in august was 2.2 Hold metformin and benazepril Avoid nephrotoxic agents as able Monitor renal function Appreciate nephrology input Needs follow-up with nephrology on discharge Chronic leukocytosis Follows with hematology as outpatient Chronic Back Pain Lumbar Spinal stenosis on prior imaging Appreciate orthopedics input No significant gross neurological compression or spinal disease per Ortho No surgical indication currently as per Ortho 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 Yasmany Merlos on Asa, statin, metoprolol Benazepril on hold due to SAMANTHA DM II HbA1c 7.9 Controlled on metformin, Trulicity and Jardiance hold OP meds Continue insulin while hospitalized Monitor BGs Bipolar depression MED continue Cymbalta, Wellbutrin, Buspar Diabetic neuropathy continue gabapentin follows [facility] DVT Px: SCDs Re:hematuria Code Status FULL CODE Admission and Anticipated Discharge Date Admission Date: October 20, 2023 Subjective Patient is seen and examined at bedside Reports bladder pressure/lower abdominal discomfort, dysuria and hematuria Also reports chronic back pain Denies any chest pain, dyspnea, nausea, vomiting No other complaints Review of Systems Review of Systems: All systems reviewed & are unremarkable except as noted in Subjective Physical Exam Physical Exam: Physical Exam: Vitals signs as noted above General Appearance:Moderately built and nourished, no apparent distress Head: normocephalic, Atraumatic Eyes: normal inspection, EOMI Neck: supple, Trachea midline Respiratory/Chest: Normal breath sounds, CTA, No accessory muscle use Cardiovascular: S1, S2, No murmur Abdomen/GI:Soft, Non tender, Bowel sounds present Extremities/Musculoskeletal:normal inspection, no edema Neurologic/Psych:AAOX3, grossly no focal neurological deficits Skin: normal color, warm, +tattoos Results & Data Results & Data Vital Signs (Past 12 Hours) Vital Signs Temp Pulse Pulse Resp BP Pulse Ox O2 Del Method 10/20/23 15:25 36.8 C 92 H 14 107/76 97 Room Air 10/20/23 15:00 92 H 10/20/23 11:07 36.8 C 95 H 16 110/74 97 Room Air 10/20/23 08:00 Room Air 10/20/23 07:35 36.7 C 90 14 112/78 98 Room Air 10/20/23 06:30 90 Laboratory Results Short CBC 10/20/23 Range/Units 05:58 WBC 15.88 H (4.8-10.8) K/ul Hgb 12.3 L (14.0-18.0) g/dl Hct 37.9 L (42.0-52.0) % Plt Count 301 (130-400) K/uL BMP 10/20/23 05:58 Sodium 140 Potassium 4.1 Chloride 108 H Carbon Dioxide 27 BUN 22 Creatinine 1.92 H D Glucose 143 H Calcium 7.6 L Liver Function 10/20/23 Range/Units 05:58 Total Bilirubin 0.6 (0.2-1.0) mg/dl AST 13 (13-39) U/L ALT 18 (7-52) U/L Alkaline Phosphatase 73 (34-104) U/L Albumin 3.3 L (3.4-5.0) gm/dl
[2023-10-20 20:23] LABS: Hematocrit (blood only) 35.3 % (42.0-52.0); Hemoglobin 11.3 g/dl (14.0-18.0)
--- OUTSIDE RECORDS SUMMARY | 2023-10-20 22:09 | External Medical Summary | Summary of Care ---
Author Name Unknown Organization [facility] Address [address] [place] [address] Phone [phone] Care Team Providers Care Outpatient Phlebotomist Name Role Phone Ruben Gordillo MD Primary Care Provider [phone] Reason for Visit * Reason Comments eRx-Medication Refill Encounter Details Date Type Department Care Team (Late st Contact Info) Description 10/18/2023 Refill [facility] [address] [place] [address] Ruben Gordillo MD [address] [place] [address] DM type 2, not at goal (HCC); HTN, goal below 130/80 Allergies Active Allergy Reactions Criticality Noted Date Comments Adhesive Tape 02/09/2023 Latex Rash 02/05/2022 Tramadol Nausea/vomiting 12/02/2014 documented as of this encounter (statuses as of 10/19/2023) Medications Medication Sig Dispensed Refills Start Date End Date Status GLUCOMETER ELITE CLASSIC KITIndications:DM type 2, not at goal (HCC) check blood sugar every morning when you get up 1 Kit 3 2 Active FreeStyle Sadiq 14 Day [place] Device Use as directed . 1 Each [...] MORNING 90 Tablet 3 3 Active Nystatin 327544 UNIT/GM External Cream Apply 1 g topically to affected area in the morning and 1 g before bedtime. To affacted area for two weeks.. 30 g 5 3 Active Dulaglutide 1.5 MG/0.5ML Subcutaneous Solution [...] BEFORE BEDTIME 270 Capsule 1 4 Active Aspirin Low Dose 81 MG Oral Tablet Delayed Release (aspirin enteric coated)Indications: DM type 2, not at goal (HCC),HTN, goal below 130/80 TAKE 1 TABLET BY MOUTH EVERY MORNING 90 Tablet 1 4 Active Aspirin Low Dose 81 MG Oral Tablet Delayed Release (aspirin enteric coated)Indications: DM type 2, not at goal (HCC),HTN, goal below 130/80 TAKE 1 TABLET BY MOUTH EVERY MORNING 90 Tablet 1 3 10/19/19 24 Discontinued documented as of this encounter (statuses as of 10/19/2023) Active Problems Problem Noted Date Diagnosed Date History of hip surgery 02/09/2023 Non healing left heel wound 11/10/2022 S/P angioplasty with stent 06/23/2022 Coronary artery disease of n ative artery of [place] heart with stable angina pectoris 06/23/2022 [...] as of this encounter (statuses as of 10/19/2023) Resolved Problems Problem Noted Date Diagnosed Date [...] as of this encounter (statuses as of 10/19/2023) Immunizations Name Administration Dates Next Due Hepatitis [...] encounter Miscellaneous Notes * Telephone Encounter - Adi Alatorre RPh - 10/19/2023 11:51 AM EDTSigned Prescriptions: Disp Refills Aspirin Low Dose 81 MG Oral Tablet Delayed*90 Tab*1 Sig: TAKE 1 TABLET BY MOUTH EVERY MORNINGAuthorizing Provider: Elsa GORDILLO User: ADI ALATORRE------ documented in this encounter Plan of Treatment Upcoming Encounters Date Type Department Care Team (Late st Contact Info) Description 10/26/2023 1:30 PM EDT Telemedicine Psychiatry [facility] Young [address] [phone] Mauri Macias DO [address] [facility] [place] [address] 10/28/2023 6:10 PM EDT Pharmacy Pharmacy, [place] [address] [place] [address] [place] [facility] [address] [place] [address] 12/02/2023 3:20 PM EDT Office Visit Neurology [facility] [address] [facility] [place] [address] Vanessa Eid PA-C [address] [facility] [place] [address] 12/06/2023 1:20 PM EDT Office Visit Family Practice, [place] [address] [place] [phone] Ruben Gordillo MD [address], [place] [phone] Health Maintenance Due Date Last Done Comments [...] as of this encounter Visit Diagnoses Diagnosis DM type 2, not at goal (HCC) Type II or unspecified type diabetes mellitus without mention of complication, not stated as uncontrolled HTN, goal below 130/80 Unspecified essential hypertension documented in this encounter Care Teams Outpatient Phlebotomist Relationship Specialty Start Date End Date Ruben Gordillo MD [address] [place] [address] PCP - General Internal Medicine 02/05/22 documented as of this encounter
--- OUTSIDE RECORDS SUMMARY | 2023-10-21 03:01 | External Medical Summary | Summary of Care ---
Author Name Unknown Organization [facility] Address [address] [place] [address] Phone [phone] Care Team Providers Care Airplane Electrical Repairer Name Role Phone Ruben Gordillo MD Primary Care Provider [phone] Reason for Visit * Reason Onset Date Comments Films 10/19/2023 Encounter Details Date Type Department Care Team (Late st Contact Info) Description 10/19/2023 Telephone Radiology [facility] [address], [place] [phone] Vanessa Eid PA-C [address] [place] [address] Films Allergies Active Allergy Reactions Criticality Noted Date [...] 3 07/31/2011 Active FreeStyle Sadiq 14 Day [place] Device Use as directed . 1 Each [...] MORNING 90 Tablet 3 02/09/2023 Active Nystatin 542598 UNIT/GM External Cream Apply 1 g topically to affected area in the morning and 1 g before bedtime. To affacted area for two weeks.. 30 g 5 04/13/2023 Active Dulaglutide 1.5 MG/0.5ML Subcutaneous Solution Pen-injector [...] Patient taking differently: 500 mg Oral BID (0800,2000), Reported on 06/29/2023 amLODIPine Besy-Benazepril HCl 5-20 [...] BEFORE BEDTIME 60 Tablet 5 10/11/2023 Active Gabapentin 300 MG Oral Capsule (Neurontin) TAKE 1 CAPSULE BY MOUTH THREE TIMES DAILY EVERY MORNING, AT NOON, AND BEFORE BEDTIME 270 Capsule 1 10/14/2023 Active Aspirin Low Dose 81 MG Oral Tablet Delayed Release (aspirin enteric coated)Indications:D M type 2, not at goal (HCC),HTN, goal below 130/80 TAKE 1 TABLET BY MOUTH EVERY MORNING 90 Tablet 1 10/19/2023 Active documented as of this encounter (statuses as of 10/19/2023) Active Problems Problem Noted Date Diagnosed Date History of hip surgery 02/09/2023 Non healing left heel wound 11/10/2022 S/P angioplasty with stent 06/23/2022 Coronary artery disease of n ative artery of [place] heart with stable angina pectoris 06/23/2022 Ischemic [...] encounter Miscellaneous Notes * Telephone Encounter - Agnieszka Luna OSA - 10/19/2023 4:19 PM EDT [facility] requesting 10-08-23 MRI images be pushed through PACS. [place] Authorization to Release on file. Images pushed to [facility] PACS external connection. Associated report(s) not needed. documented in this encounter Plan of Treatment Upcoming Encounters Date Type Department Care Team (Late st Contact Info) Description 10/26/2023 1:30 PM EDT Telemedicine Psychiatry Clarice Young [address] [phone] Mauri Macias DO [address] [facility] [place] [address] 10/28/2023 6:10 PM EDT Pharmacy Pharmacy, [place] [address] [place] [address] [place] [address] [place] [address] 12/02/2023 3:20 PM EDT Office Visit [facility] [address] [place] [address] Vanessa Eid PA-C [address] [place] [address] 12/06/2023 1:20 PM EDT Office Visit [facility] [address] [place] [facility] [place] [address] Ruben Gordillo MD [address] [place] [address] Health Maintenance Due Date Last [...] filedocumented as of this encounter Care Teams Airplane Electrical Repairer Relationship Specialty Start Date End Date Ruben Gordillo MD [address] [address] PCP - General Internal Medicine 02/05/22 documented as of this encounter
[2023-10-21 06:35] LABS: Hematocrit (blood only) 34.6 % (42.0-52.0); Hemoglobin 11.3 g/dl (14.0-18.0); Mean Corpuscular Hemoglobin 27.5 pg (25.0-34.0); Mean Corpuscular Hgb Conc 32.7 g/dL (32.0-36.0); Mean Corpuscular Volume 84.2 fL (80.0-100.0); Mean Platelet Volume 11.3 fL (9.4-12.4); Platelet Count 287 K/uL (130-400); RDW Coefficient of Variation 13.8 % (11.5-14.5); RDW Standard Deviation 42.9 fL (36.4-46.3); Red Blood Count 4.11 M/uL (4.70-6.10)
[2023-10-21 07:04] LABS: BUN Creatinine Ratio 14.4 (10-20); Calcium 7.7 mg/dl (8.6-10.3); Creatinine Clr Calc Pharmacy 51.4 ml/min; Est GFR (African American) 46.1 ml/min; Est GFR (Non-African American) 39.8 ml/min
--- NOTE | 2023-10-21 10:03 | Nephrology Progress Note ---
Date of Service October 21, 2023 Assessment & Plan Admission and Anticipated Discharge Date Admission Date: October 20, 2023 Subjective Assessment & Plan (1) SAMANTHA (acute kidney injury): He had normal kidney function with a creatinine of 1.1 as of June 2023. He was already starting to have abnormal creatinine in August with a outpatient blood work showing creatinine of 2.2. no follow-up blood work after that. at this point given the bilateral hydronephrosis the etiology of worsened kidney function has to be obstructive uropathy from bladder outlet obstruction causing bilateral hydronephrosis. for now continue Pierce catheter reviewed Urology note. Creat today about same as yesterday even though massive increase in urine output. hgb stable despite Hematuria. Sometime SAMANTHA recovery may take a longer time but can be followed outpt for this. Nephrology f/u within 1 week of Discharge with CBC and renal Panel, UA and prot/creat he does need to be followed with Nephrology. he has massive amount of proteinuria at this time but he has not acting like a patient with nephrotic syndrome -- albumin normal at 4.1 on admission yesterday and he does not have any edema at all. also with gross hematuria and urinary retention with bilateral hydronephrosis it is hard to accurately interpret the urine finding. will address this proteinuria as an outpatient. he is eating and drinking very normally and so no need of IV fluid. (2) Acute urinary retention: (3) Hydronephrosis: significant bladder outlet obstruction causing urinary retention with bilateral hydronephrosis and now requiring Pierce catheter. already evaluated by Urology. etiology of bladder outlet obstruction could be spinal stenosis with neurological complications and/or complications related with diabetic neurogenic bladder. given his very young age will have to consider alternate method of urinary drainage. Will defer this to Urology. he does have significant gross hematuria at this time and may need continuous bladder irrigation. S--no new issues. made 4200ml urine is still bloody. Has pierce. Hgb stable though Physical Exam Constitutional: well developed and well nourished; no acute distress Respiratory: normal respiratory effort; no respiratory distress and no labored breathing Musculoskeletal: Head/Neck/Chest: normocephalic CVC RRR. no murmur. no edema Neurologic: moves all extremities and awake alert. normal speech Psychiatric: euthymic affect Genitourinary: Pierce draining w/hematuria Results & Data Vital Signs (Past 12 Hours) Vital Signs Temp Pulse Pulse Resp BP Pulse Ox O2 Del Method 10/21/23 08:00 Room Air 10/21/23 07:33 36.6 C 95 H 16 133/87 97 Room Air 10/21/23 06:30 92 H 10/21/23 03:01 36.6 C 90 16 119/80 96 Room Air 10/20/23 23:50 94 H 10/20/23 23:03 36.8 C 93 H 16 99/66 L 96 Room Air
--- NOTE | 2023-10-21 10:13 | Urology Progress Note ---
Date of Service October 21, 2023 Assessment & Plan (1) Urinary retention: (2) Hydronephrosis: (3) SAMANTHA (acute kidney injury): Plan 48yo/M admitted with acute urinary retention, SAMANTHA, hydronephrosis. CT abdomen pelvis was notable for bilateral hydronephrosis likely secondary to bladder distention and Medrano catheter present within the decompressed urinary bladder with circumferential bladder wall thickening and intraluminal debris. Urology consulted for urinary retention and hematuria. He is afebrile and hemodynamically stable. Labs show leukocytosis up to 18.90 (hx chronic leukocytosis per notes), hemoglobin 11.3, and creatinine 1.95 today. Urine culture final with more than 3 types of organisms, all high counts. Repeat collection recommended. He is on empiric ceftriaxone. Unclear etiology for hematuria at this time, may be related to traumatic catheter or rapid decompression of a full bladder. Medrano catheter currently draining light red urine. Continue to monitor urine output. Bladder scan as needed. Okay to manually irrigate as needed for clots, retention, suprapubic pain. If patient continues to have hematuria with clot, may need to consider upsizing catheter and initiating CBI. Can consider addition of oxybutynin PRN bladder pain/spasms. Continue antibiotic therapy. Continue to trend labs. He will need full hematuria work-up with cystoscopy in the future but this can be completed as outpatient. Anticoagulation per primary team. Urology can manage hematuria as needed. Urology will follow along. Admission and Anticipated Discharge Date Admission Date: October 20, 2023 Subjective Patient seen at bedside this morning No acute distress Medrano draining light red urine He has not required manual catheter irrigation Denies f/c/n/v Reports some bladder discomfort/spasms, improved some from yesterday Review of Systems Constitutional: as per Subjective / HPI Genitourinary: + as per Subjective / HPI Physical Exam Constitutional: well developed and well nourished; no acute distress Respiratory: normal respiratory effort; no respiratory distress and no labored breathing Neurologic: awake Psychiatric: A+Ox3, euthymic affect Genitourinary: Medrano draining w/hematuria Results & Data Vital Signs (Past 12 Hours) Vital Signs Temp Pulse Pulse Resp BP Pulse Ox O2 Del Method 10/21/23 08:00 Room Air 10/21/23 07:33 36.6 C 95 H 16 133/87 97 Room Air 10/21/23 06:30 92 H 10/21/23 03:01 36.6 C 90 16 119/80 96 Room Air 10/20/23 23:50 94 H 10/20/23 23:03 36.8 C 93 H 16 99/66 L 96 Room Air PG Care Time/CCT Total # of Minutes Spent Total Time Spent with Patient: Total time spent is greater than 50% in coordination of care (as documented) at patient's floor/unit and/or counseling patient: Coding Level of Care Code 59596 SUB INP/OBS CARE 2/35MIN Diagnoses Urinary retention R33.9 Hydronephrosis N13.30 SAMANTHA (acute kidney injury) N17.9
--- NOTE | 2023-10-21 16:01 | Hospitalist Progress Note ---
Date of Service October 21, 2023 Assessment & Plan (1) Lumbar spinal stenosis: (2) Urinary retention: (3) Hydronephrosis: (4) SAMANTHA (acute kidney injury): (5) Type 2 diabetes mellitus with diabetic neuropathy, unspecified: (6) CAD (coronary artery disease): (7) Bipolar 1 disorder, depressed: Plan Patient is a 48 yr male who has significant past medical history of CAD with hx of POLY x 2 06/2022, T2DM, diabetic neuropathy, HTN, HLD, chronic HFrEF, history of ischemic cardiomyopathy, history of left central retinal artery occlusion, bipolar depression, generalized anxiety, history of tobacco abuse who presents to ED at the referral of PCP due to abnormal MRI results. Urinary retention Obstructive uropathy with bilateral hydroureteronephrosis Acute kidney injury due to above --CT ABD: A Medrano catheter is present within a decompressed urinary bladder. Circumferential urinary bladder wall thickening with intraluminal debris/possible blood products. Correlate with urinalysis. Moderate generally symmetric bilateral hydroureteronephrosis may be secondary to the reported urinary bladder retention. No urolith identified. No bowel obstruction or bowel wall thickening. Cholelithiasis. -- Urine culture likely contaminated -- Oxybutynin on hold Continue Medrano catheter Empirically on Rocephin Continue Medrano Appreciate urology input Urine culture not contributory Still has hematuria Needs follow-up with urology on discharge Hematuria ? Traumatic catheter Monitor CBC Appreciate urology input May need continuous bladder irrigation if hematuria worsens Will eventually need cystoscopy as outpatient Hold Plavix for now Will need to hold Aspirin if hematuria worsens Hb 11.3 today Urology following Acute kidney injury Proteinuria Outpt chart review revealed Cr in august was 2.2 Hold metformin and benazepril Avoid nephrotoxic agents as able Monitor renal function Appreciate nephrology input Needs follow-up with nephrology on discharge Cr 1.9 today Chronic leukocytosis Was considered reactive leukocytosis in the past Follows with hematology as outpatient No obvious source of infection found currently Monitor CBC Chronic Back Pain Lumbar Spinal stenosis on prior imaging Appreciate orthopedics input No significant gross neurological compression or spinal disease per Ortho No surgical indication currently as per Ortho CAD S/O POLY in 06/2022 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 Yasmany Merlos on Asa, statin, metoprolol Benazepril on hold due to SAMANTHA Resume Plavix as able DM II HbA1c 7.9 Controlled on metformin, Trulicity and Jardiance hold OP meds Continue insulin while hospitalized Monitor BGs Bipolar depression MED continue Cymbalta, Wellbutrin, Buspar Diabetic neuropathy continue gabapentin follows [facility] neurology DVT Px: SCDs Re:hematuria Code Status FULL CODE Disposition PT OT prior to discharge Admission and Anticipated Discharge Date Admission Date: October 20, 2023 Subjective Patient is seen and examined at bedside Bladder pressure/spasms slightly better when compared to yesterday Still has some hematuria Reports chronic back/Neck pain Denies any chest pain, dyspnea, nausea, vomiting Review of Systems Review of Systems: All systems reviewed & are unremarkable except as noted in Subjective Physical Exam Physical Exam: Physical Exam: Vitals signs as noted above General Appearance:Moderately built and nourished, no apparent distress Head: normocephalic, Atraumatic Eyes: normal inspection, EOMI Neck: supple, Trachea midline Respiratory/Chest: Normal breath sounds, CTA, No accessory muscle use Cardiovascular: S1, S2, No murmur Abdomen/GI:Soft, Non tender, Bowel sounds present Extremities/Musculoskeletal:normal inspection, no edema Neurologic/Psych:AAOX3, grossly no focal neurological deficits Skin: normal color, warm, +tattoos Results & Data Results & Data Vital Signs (Past 12 Hours) Vital Signs Temp Pulse Pulse Resp BP Pulse Ox O2 Del Method 10/21/23 15:24 36.8 C 104 H 16 132/79 96 Room Air 10/21/23 14:00 103 H 10/21/23 11:02 36.8 C 88 14 120/79 97 Room Air 10/21/23 08:00 Room Air 10/21/23 07:33 36.6 C 95 H 16 133/87 97 Room Air 10/21/23 06:30 92 H Laboratory Results Short CBC 10/20/23 10/21/23 Range/Units 19:50 06:03 WBC 18.90 H (4.8-10.8) K/ul Hgb 11.3 L 11.3 L (14.0-18.0) g/dl Hct 35.3 L 34.6 L (42.0-52.0) % Plt Count 287 (130-400) K/uL BMP 10/21/23 06:03 Sodium 139 Potassium 4.0 Chloride 108 H Carbon Dioxide 25 BUN 28 H Creatinine 1.95 H Glucose 187 H Calcium 7.7 L
[2023-10-21] MEDS: bisacodyL 5 MG TABEC PO PRN (17:10)
[2023-10-22 06:48] LABS: Hemoglobin 10.8 g/dl (14.0-18.0); Mean Corpuscular Hemoglobin 27.6 pg (25.0-34.0); Mean Corpuscular Hgb Conc 32.7 g/dL (32.0-36.0); Mean Corpuscular Volume 84.4 fL (80.0-100.0); Mean Platelet Volume 11.5 fL (9.4-12.4); Platelet Count 261 K/uL (130-400); RDW Coefficient of Variation 13.9 % (11.5-14.5); RDW Standard Deviation 43.2 fL (36.4-46.3); Red Blood Count 3.91 M/uL (4.70-6.10); White Blood Count 21.69 K/ul (4.8-10.8)
[2023-10-22 07:06] LABS: BUN Creatinine Ratio 14.3 (10-20); Calcium 7.8 mg/dl (8.6-10.3); Creatinine Clr Calc Pharmacy 57.3 ml/min; Est GFR (African American) 52.6 ml/min; Est GFR (Non-African American) 45.4 ml/min
[2023-10-22 07:10] LABS: Basophils % (auto) 0.9 %; Eosinophils # (auto) 0.88 K/uL (0.00-0.50); Eosinophils % (auto) 4.1 %; Immature Granulocytes # (auto) 0.22 K/uL (0.01-0.20); Lymphocytes # (auto) 4.36 K/uL (1.20-3.40); Lymphocytes % (auto) 20.1 %; Monocytes # (auto) 3.14 K/uL (0.11-0.59); Monocytes % (auto) 14.5 %; Neutrophils # (auto) 12.89 K/uL (1.40-6.50); Neutrophils % (auto) 59.4 %
--- NOTE | 2023-10-22 08:41 | Nephrology Progress Note ---
Date of Service October 22, 2023 Assessment & Plan Admission and Anticipated Discharge Date Admission Date: October 20, 2023 Subjective Assessment & Plan (1) SAMANTHA (acute kidney injury): He had normal kidney function with a creatinine of 1.1 as of June 2023. He was already starting to have abnormal creatinine in August with a outpatient blood work showing creatinine of 2.2. no follow-up blood work after that. at this point given the bilateral hydronephrosis the etiology of worsened kidney function has to be obstructive uropathy from bladder outlet obstruction causing bilateral hydronephrosis. for now continue Pierce catheter reviewed Urology note. Creat today slightly better than yesterday with lot of urine output. hgb stable despite Hematuria. Sometime SAMANTHA recovery may take a longer time but can be followed outpt for this. Nephrology f/u within 1 week of Discharge with CBC and renal Panel, UA and prot/creat he does need to be followed with Nephrology. he has massive amount of proteinuria at this time but he is not acting like a patient with nephrotic syndrome -- albumin normal at 4.1 on admission and he does not have any edema at all. Also with gross hematuria and urinary retention with bilateral hydronephrosis it is hard to accurately interpret the urine finding. will address this proteinuria as an outpatient. he is eating and drinking very normally and so no need of IV fluid. (2) Acute urinary retention: (3) Hydronephrosis: significant bladder outlet obstruction causing urinary retention with bilateral hydronephrosis and now requiring Pierce catheter. already evaluated by Urology. etiology of bladder outlet obstruction could be spinal stenosis with neurological complications and/or complications related with diabetic neurogenic bladder. given his very young age will have to consider alternate method of urinary drainage. Will defer this to Urology. he does have significant gross hematuria at this time and may need continuous bladder irrigation. WBC went higher. Complex urine C/s report. getting Abx. S--no new issues. Lot of urine and less bloody. Has pierce. Hgb stable though Physical Exam Constitutional: well developed and well nourished; no acute distress Respiratory: normal respiratory effort; no respiratory distress and no labored breathing Musculoskeletal: Head/Neck/Chest: normocephalic CVC RRR. no murmur. no edema Neurologic: moves all extremities and awake alert. normal speech Psychiatric: euthymic affect Genitourinary: Pierce draining w/hematuria Results & Data Vital Signs (Past 12 Hours) Vital Signs Temp Pulse Pulse Resp BP Pulse Ox O2 Del Method 10/22/23 07:57 37.7 C H 86 18 113/77 95 Room Air 10/22/23 07:00 98 H 10/22/23 03:49 36.7 C 98 H 18 138/87 94 Room Air 10/21/23 23:14 37.3 C 101 H 16 117/75 95 Room Air 10/21/23 22:54 103 H 10/21/23 21:46 Room Air
[2023-10-22] MEDS: PIPERACILLIN/TAZOBACTAM 4.5 GM in DEXTROSE 5% MINI-B 100 ML IV ONE (10:35)
--- NOTE | 2023-10-22 14:27 | Urology Progress Note ---
Date of Service October 22, 2023 Assessment & Plan (1) Urinary retention: (2) Hydronephrosis: (3) SAMANTHA (acute kidney injury): Plan 48yo/M admitted with acute urinary retention, SAMANTHA, hydronephrosis. CT abdomen pelvis was notable for bilateral hydronephrosis likely secondary to bladder distention and Medrano catheter present within the decompressed urinary bladder with circumferential bladder wall thickening and intraluminal debris. Urology consulted for urinary retention and hematuria. Tmax 37.8C. Normotensive. Mildly tachycardic. Labs show leukocytosis up to 21.69 (hx chronic leukocytosis per notes), hemoglobin 10.8, and creatinine downtrending 1.75 today. Urine culture final with more than 3 types of organisms, all high counts. Repeat pending. Blood cultures pending. Antibiotics broadened to Zosyn given worsening leukocytosis and low grade temp. Unclear etiology for retention (?BPH, ?neurogenic) and hematuria (? traumatic catheter or rapid bladder decompression). Hematuria is improving. Medrano catheter currently draining pink urine without clot. Continue to monitor urine output. Bladder scan as needed. Okay to manually irrigate as needed for clots, retention, suprapubic pain. Continue supportive care and antibiotic therapy. Continue to trend labs. He will need full hematuria work-up with cystoscopy in the future but this can be completed as outpatient. Anticoagulation per primary team. Urology can manage hematuria as needed. Urology will follow along. Admission and Anticipated Discharge Date Admission Date: October 20, 2023 Subjective Patient seen at bedside this morning No acute distress Medrano draining light red/pink urine without clot He has not required manual catheter irrigation Denies f/c/n/v Tmax 37.8C Reports some dysuria and bladder spasms Review of Systems Constitutional: as per Subjective / HPI Genitourinary: + as per Subjective / HPI Physical Exam Constitutional: no acute distress Respiratory: normal respiratory effort; no respiratory distress and no labored breathing Gastrointestinal (Abdomen): Inspection/Auscultation: abdomen not distended Percussion/Palpation: abdomen soft Musculoskeletal: Head/Neck/Chest: normocephalic Neurologic: awake Psychiatric: A+Ox3, euthymic affect Genitourinary: Medrano catheter intact, draining with hematuria Results & Data Vital Signs (Past 12 Hours) Vital Signs Temp Pulse Pulse Resp BP Pulse Ox O2 Del Method 10/22/23 11:30 37.8 C H 97 H 20 112/76 95 Room Air 10/22/23 08:00 Room Air 10/22/23 07:57 37.7 C H 86 18 113/77 95 Room Air 10/22/23 07:00 98 H 10/22/23 03:49 36.7 C 98 H 18 138/87 94 Room Air PG Care Time/CCT Total # of Minutes Spent Total Time Spent with Patient: Total time spent is greater than 50% in coordination of care (as documented) at patient's floor/unit and/or counseling patient: Coding Level of Care Code 99389 SUB INP/OBS CARE 2/35MIN Diagnoses Urinary retention R33.9 Hydronephrosis N13.30 SAMANTHA (acute kidney injury) N17.9
[2023-10-22] MEDS: PIPERACILLIN/TAZOBACTAM 4.5 GM in DEXTROSE 5% MINI-B 100 ML IV SCH (16:08)
[2023-10-22] MEDS: POLYETHYLENE (MIRALAX) 17 GM PACK PO PRN (16:18)
--- NOTE | 2023-10-22 17:14 | Hospitalist Progress Note ---
Date of Service October 22, 2023 Assessment & Plan (1) Lumbar spinal stenosis: (2) Urinary retention: (3) Hydronephrosis: (4) SAMANTHA (acute kidney injury): (5) Type 2 diabetes mellitus with diabetic neuropathy, unspecified: (6) CAD (coronary artery disease): (7) Bipolar 1 disorder, depressed: Plan Patient is a 48 yr male who has significant past medical history of CAD with hx of POLY x 2 06/2022, T2DM, diabetic neuropathy, HTN, HLD, chronic HFrEF, history of ischemic cardiomyopathy, history of left central retinal artery occlusion, bipolar depression, generalized anxiety, history of tobacco abuse who presents to ED at the referral of PCP due to abnormal MRI results. Urinary retention Obstructive uropathy with bilateral hydroureteronephrosis Acute kidney injury due to above Suspected Complicated UTI --CT ABD: A Medrano catheter is present within a decompressed urinary bladder. Circumferential urinary bladder wall thickening with intraluminal debris/possible blood products. Correlate with urinalysis. Moderate generally symmetric bilateral hydroureteronephrosis may be secondary to the reported urinary bladder retention. No urolith identified. No bowel obstruction or bowel wall thickening. Cholelithiasis. -- Urine culture likely contaminated -- Oxybutynin on hold Continue Medrano catheter Empirically on Rocephin>> transition to Zosyn on 10/21 Continue Medrano Appreciate urology input Urine culture not contributory Needs follow-up with urology on discharge Hematuria slowly improving Repeat urine culture pending Given febrile, will obtain blood cultures as well Hematuria ? Traumatic catheter Monitor CBC Appreciate urology input May need continuous bladder irrigation if hematuria worsens Will eventually need cystoscopy as outpatient Hold Plavix for now (discussed with cardiology, agrees with holding Plavix given > 1 year of DAPT) Continue Aspirin for now Hb 10.8 today Urology following Hematuria slowly improving Acute kidney injury Proteinuria Outpt chart review revealed Cr in august was 2.2 Hold metformin and benazepril Avoid nephrotoxic agents as able Monitor renal function Appreciate nephrology input Needs follow-up with nephrology on discharge Cr 1.75 today Chronic leukocytosis Was considered reactive leukocytosis in the past Follows with hematology as outpatient No obvious source of infection found currently Monitor CBC Leukocytosis worsening Broadened antibiotics given fever Obtain peripheral smear Blood, urine cultures pending Chronic Back Pain Lumbar Spinal stenosis on prior imaging Appreciate orthopedics input No significant gross neurological compression or spinal disease per Ortho No surgical indication currently as per Ortho CAD S/O POLY in 06/2022 Ischemic [employer] stress echo 05/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 Yasmany Merlos on Asa, statin, metoprolol Benazepril on hold due to SAMANTHA Hold Plavix for now DM II HbA1c 7.9 Controlled on metformin, Trulicity and Jardiance hold OP meds Continue insulin while hospitalized Monitor BGs Bipolar depression MED continue Cymbalta, Wellbutrin, Buspar HTN Hold amlodipine, and benazepril for now as BP low Continue beta-vera with holding parameters Monitor BP Diabetic neuropathy continue gabapentin follows [facility] neurology DVT Px: SCDs Re:hematuria Code Status FULL CODE Disposition PT OT prior to discharge Admission and Anticipated Discharge Date Admission Date: October 20, 2023 Subjective Patient is seen and examined at bedside Less hematuria today Noted to be febrile today Leukocytosis worsening Abdominal/groin pain is controlled Denies any chest pain, dyspnea, nausea, vomiting Review of Systems Review of Systems: All systems reviewed & are unremarkable except as noted in Subjective Physical Exam Physical Exam: Physical Exam: Vitals signs as noted above General Appearance:Moderately built and nourished, no apparent distress Head: normocephalic, Atraumatic Eyes: normal inspection, EOMI Neck: supple, Trachea midline Respiratory/Chest: Normal breath sounds, CTA, No accessory muscle use Cardiovascular: S1, S2, No murmur Abdomen/GI:Soft, Non tender, Bowel sounds present Extremities/Musculoskeletal:normal inspection, no edema Neurologic/Psych:AAOX3, grossly no focal neurological deficits Skin: normal color, warm, +tattoos Results & Data Results & Data Vital Signs (Past 12 Hours) Vital Signs Temp Pulse Pulse Resp BP Pulse Ox Pulse Ox 10/22/23 15:14 37.7 C H 97 H 20 106/72 96 10/22/23 14:31 101 H 10/22/23 14:26 95 10/22/23 11:30 37.8 C H 97 H 20 112/76 95 10/22/23 08:00 10/22/23 07:57 37.7 C H 86 18 113/77 95 10/22/23 07:00 98 H O2 Del Method O2 Flow Rate 10/22/23 15:14 Room Air 10/22/23 14:31 10/22/23 14:26 0 10/22/23 11:30 Room Air 10/22/23 08:00 Room Air 10/22/23 07:57 Room Air 10/22/23 07:00 Laboratory Results Short CBC 10/22/23 Range/Units 05:35 WBC 21.69 H (4.8-10.8) K/ul Hgb 10.8 L (14.0-18.0) g/dl Hct 33.0 L (42.0-52.0) % Plt Count 261 (130-400) K/uL BMP 10/22/23 05:35 Sodium 135 L Potassium 4.0 Chloride 103 Carbon Dioxide 25 BUN 25 H Creatinine 1.75 H Glucose 142 H Calcium 7.8 L
[2023-10-23 06:35] LABS: Calcium 7.8 mg/dl (8.6-10.3); Creatinine Clr Calc Pharmacy 53.9 ml/min; Est GFR (African American) 48.8 ml/min; Est GFR (Non-African American) 42.1 ml/min; Potassium 4.1 mmol/L (3.5-5.1)
[2023-10-23 07:08] LABS: Hematocrit (blood only) 30.9 % (42.0-52.0); Hemoglobin 10.1 g/dl (14.0-18.0); Mean Corpuscular Hemoglobin 27.7 pg (25.0-34.0); Mean Corpuscular Hgb Conc 32.7 g/dL (32.0-36.0); Mean Corpuscular Volume 84.7 fL (80.0-100.0); Mean Platelet Volume 11.5 fL (9.4-12.4); Platelet Count 252 K/uL (130-400); RDW Coefficient of Variation 13.6 % (11.5-14.5); RDW Standard Deviation 42.5 fL (36.4-46.3); Red Blood Count 3.65 M/uL (4.70-6.10); White Blood Count 16.34 K/ul (4.8-10.8)
[2023-10-23 08:24] LABS: Basophils # (auto) 0.16 K/uL (0.00-0.20); Echinocytes 1+; Eosinophils # (auto) 0.88 K/uL (0.00-0.50); Eosinophils % (auto) 5.4 %; Immature Granulocytes # (auto) 0.23 K/uL (0.01-0.20); Immature Granulocytes % (auto) 1.4 %; Lymphocytes # (auto) 3.65 K/uL (1.20-3.40); Lymphocytes % (auto) 22.3 %; Monocytes # (auto) 2.44 K/uL (0.11-0.59); Monocytes % (auto) 14.9 %; Neutrophils # (auto) 8.98 K/uL (1.40-6.50)
--- NOTE | 2023-10-23 08:31 | Urology Progress Note ---
Date of Service October 23, 2023 Assessment & Plan (1) Acute urinary retention: (2) Gross hematuria: Plan 48yo/M admitted with acute urinary retention, SAMANTHA, hydronephrosis. CT abdomen pelvis was notable for bilateral hydronephrosis likely secondary to bladder distention and Medrano catheter present within the decompressed urinary bladder with circumferential bladder wall thickening and intraluminal debris. Urology consulted for urinary retention and hematuria. No acute urologic intervention necessary Creatinine downtrending, hemoglobin stable Urine culture final with more than 3 types of organisms, all high counts. Repeat pending. Blood cultures pending. Antibiotics broadened to Zosyn given worsening leukocytosis and low grade temp. Unclear etiology for retention (?BPH, ?neurogenic) and hematuria (? traumatic catheter or rapid bladder decompression). Hematuria is improving. Medrano catheter currently draining pink urine without clot. Continue to monitor urine output. Bladder scan as needed. Okay to manually irrigate as needed for clots, retention, suprapubic pain. Continue supportive care and antibiotic therapy. Continue to trend labs. He will need full hematuria work-up with cystoscopy in the future but this can be completed as outpatient. Anticoagulation per primary team. Urology can manage hematuria as needed. Not unreasonable to restart so we can further assess urine characterization. Urology will follow along. Admission and Anticipated Discharge Date Admission Date: October 20, 2023 Subjective Afebrile with stable vitals. Labs today show a leukocytosis of 16, down from 21, hemoglobin stable at 10.1. Creatinine 1.86, yesterday 1.75. Urine light pink today. Physical Exam Physical Exam: General: Alert and oriented, no acute distress HEENT: Normocephalic, mucous membranes moist Pulmonary: Nonlabored respirations Abdomen: Nondistended : Medrano catheter draining light pink urine Extremities: Moves all 4 spontaneously Neuro: No gross deficits Skin: Warm, dry, no rashes noted Results & Data Vital Signs (Past 12 Hours) Vital Signs Temp Pulse Pulse Resp BP Pulse Ox O2 Del Method 10/23/23 07:31 37.0 C 94 H 15 133/86 96 Room Air 10/23/23 07:17 96 H 10/23/23 04:26 37.0 C 94 H 20 124/82 95 Room Air 10/22/23 23:54 36.7 C 92 H 20 117/79 96 Room Air 10/22/23 22:08 92 H PG Care Time/CCT Total # of Minutes Spent Total Time Spent with Patient: Total time spent is greater than 50% in coordination of care (as documented) at patient's floor/unit and/or counseling patient: Coding Level of Care Code 35675 SUB INP/OBS CARE 2/35MIN Diagnoses Acute urinary retention R33.8 Gross hematuria R31.0
[2023-10-23] MEDS ORDERED: bisacodyL 10 MG SUPP PR PRN (12:11)
[2023-10-23] MEDS: DOCUSATE SODIUM 100 MG CAP PO SCH (13:18)
--- NOTE | 2023-10-23 15:45 | Hospitalist Progress Note ---
Date of Service October 23, 2023 Assessment & Plan (1) Lumbar spinal stenosis: (2) Urinary retention: (3) Hydronephrosis: (4) SAMANTHA (acute kidney injury): (5) Type 2 diabetes mellitus with diabetic neuropathy, unspecified: (6) CAD (coronary artery disease): (7) Bipolar 1 disorder, depressed: Plan Patient is a 48 yr male who has significant past medical history of CAD with hx of POLY x 2 06/2022, T2DM, diabetic neuropathy, HTN, HLD, chronic HFrEF, history of ischemic cardiomyopathy, history of left central retinal artery occlusion, bipolar depression, generalized anxiety, history of tobacco abuse who presents to ED at the referral of PCP due to abnormal MRI results. Urinary retention Obstructive uropathy with bilateral hydroureteronephrosis Acute kidney injury due to above Suspected Complicated UTI --CT ABD: A Medrano catheter is present within a decompressed urinary bladder. Circumferential urinary bladder wall thickening with intraluminal debris/possible blood products. Correlate with urinalysis. Moderate generally symmetric bilateral hydroureteronephrosis may be secondary to the reported urinary bladder retention. No urolith identified. No bowel obstruction or bowel wall thickening. Cholelithiasis. -- Urine culture likely contaminated, repeat urine culture negative to date --Blood culture negative to date -- Oxybutynin on hold Continue Medrano catheter Empirically on Rocephin>> transition to Zosyn on 10/21 Continue Medrano Appreciate urology input Needs follow-up with urology on discharge Continue current management Leukocytosis trending down Hematuria ? Traumatic catheter Monitor CBC Appreciate urology input May need continuous bladder irrigation if hematuria worsens Will eventually need cystoscopy as outpatient Hold Plavix for now (discussed with cardiology, agrees with holding Plavix given > 1 year of DAPT) Continue Aspirin for now Hb 10.1 today Urology following Hematuria slowly improving Acute kidney injury Proteinuria Outpt chart review revealed Cr in august was 2.2 Hold metformin and benazepril Avoid nephrotoxic agents as able Monitor renal function Appreciate nephrology input Needs follow-up with nephrology on discharge Cr 1.86 today Chronic leukocytosis Was considered reactive leukocytosis in the past Follows with hematology as outpatient No obvious source of infection found currently Monitor CBC Peripheral smear--pending Cultures negative to date Empirically on Zosyn Chronic Back Pain Lumbar Spinal stenosis on prior imaging Appreciate orthopedics input No significant gross neurological compression or spinal disease per Ortho No surgical indication currently as per Ortho CAD S/O POLY in 06/2022 Ischemic [employer] stress echo 05/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 Yasmany Merlos on Asa, statin, metoprolol Benazepril on hold due to SAMANTHA Hold Plavix for now DM II HbA1c 7.9 Controlled on metformin, Trulicity and Jardiance hold OP meds Continue insulin while hospitalized Monitor BGs Bipolar depression MED continue Cymbalta, Wellbutrin, Buspar HTN Hold amlodipine, and benazepril for now as BP low Continue beta-vera with holding parameters Monitor BP Diabetic neuropathy continue gabapentin follows [facility] neurology DVT Px: SCDs Re:hematuria Code Status FULL CODE Disposition PT OT prior to discharge Admission and Anticipated Discharge Date Admission Date: October 20, 2023 Subjective Patient is seen and examined at bedside Reports constipation Urine light pink today Discussed with nephrology today Leukocytosis trending down Afebrile today Abdominal/groin pain is controlled Denies any chest pain, dyspnea, nausea, vomiting Review of Systems Review of Systems: All systems reviewed & are unremarkable except as noted in Subjective Physical Exam Physical Exam: Physical Exam: Vitals signs as noted above General Appearance:Moderately built and nourished, no apparent distress Head: normocephalic, Atraumatic Eyes: normal inspection, EOMI Neck: supple, Trachea midline Respiratory/Chest: Normal breath sounds, CTA, No accessory muscle use Cardiovascular: S1, S2, No murmur Abdomen/GI:Soft, Non tender, Bowel sounds present Extremities/Musculoskeletal:normal inspection, no edema Neurologic/Psych:AAOX3, grossly no focal neurological deficits Skin: normal color, warm, +tattoos Results & Data Results & Data Vital Signs (Past 12 Hours) Vital Signs Temp Pulse Pulse Resp BP Pulse Ox O2 Del Method 10/23/23 15:34 37.1 C 95 H 14 135/86 96 Room Air 10/23/23 15:16 98 H 10/23/23 11:17 36.9 C 93 H 15 121/80 96 Room Air 10/23/23 07:31 37.0 C 94 H 15 133/86 96 Room Air 10/23/23 07:17 96 H 10/23/23 04:26 37.0 C 94 H 20 124/82 95 Room Air Laboratory Results Short CBC 10/23/23 Range/Units 05:40 WBC 16.34 H (4.8-10.8) K/ul Hgb 10.1 L (14.0-18.0) g/dl Hct 30.9 L (42.0-52.0) % Plt Count 252 (130-400) K/uL BMP 10/23/23 05:40 Sodium 137 Potassium 4.1 Chloride 107 Carbon Dioxide 21 BUN 26 H Creatinine 1.86 H Glucose 216 H Calcium 7.8 L
[2023-10-23] MEDS: SENNA 8.6 MG TAB PO SCH (20:49)
[2023-10-24 06:06] LABS: BUN Creatinine Ratio 13.5 (10-20); Calcium 8.4 mg/dl (8.6-10.3); Est GFR (African American) 54.5 ml/min; Potassium 4.3 mmol/L (3.5-5.1)
--- NOTE | 2023-10-24 08:03 | Urology Progress Note ---
Date of Service October 24, 2023 Assessment & Plan (1) Acute urinary retention: (2) Gross hematuria: Plan 48yo/M admitted with acute urinary retention, SAMANTHA, hydronephrosis. CT abdomen pelvis was notable for bilateral hydronephrosis likely secondary to bladder distention and Medrano catheter present within the decompressed urinary bladder with circumferential bladder wall thickening and intraluminal debris. Urology consulted for urinary retention and hematuria. No acute urologic intervention necessary Creatinine downtrending -Urine culture final with more than 3 types of organisms, all high counts. Blood cultures no growth -Antibiotics broadened to Zosyn given worsening leukocytosis and low grade temp. -Unclear etiology for retention (?BPH, ?neurogenic) and hematuria (? traumatic catheter or rapid bladder decompression). -Hematuria is improving. Medrano catheter currently draining pink urine without clot. -Continue to monitor urine output. Bladder scan as needed. Okay to manually irrigate as needed for clots, retention, suprapubic pain. -Continue supportive care and antibiotic therapy. -Continue to trend labs. -He will need full hematuria work-up with cystoscopy in the future but this can be completed as outpatient. Anticoagulation per primary team. Urology can manage hematuria as needed. Not unreasonable to restart so we can further assess urine characterization. -Urology will follow along. Admission and Anticipated Discharge Date Admission Date: October 20, 2023 Subjective Afebrile with stable vitals. No labs returned yet today. Urine is light pink. Creatinine slowly downtrending. Yet to restart Plavix. Physical Exam Physical Exam: General: Alert and oriented, no acute distress HEENT: Normocephalic, mucous membranes moist Pulmonary: Nonlabored respirations Abdomen: Nondistended : Medrano catheter draining thin, light pink urine. Extremities: Moves all 4 spontaneously Neuro: No gross deficits Skin: Warm, dry, no rashes noted Results & Data Vital Signs (Past 12 Hours) Vital Signs Temp Pulse Pulse Resp BP Pulse Ox O2 Del Method 10/24/23 07:36 37.1 C 96 H 16 125/79 96 Room Air 10/24/23 07:15 94 H 10/24/23 03:15 36.7 C 95 H 18 116/74 96 Room Air 10/24/23 00:20 97 H 10/24/23 00:05 99 H 10/23/23 23:36 37.1 C 98 H 20 111/72 96 Room Air PG Care Time/CCT Total # of Minutes Spent Total Time Spent with Patient: Total time spent is greater than 50% in coordination of care (as documented) at patient's floor/unit and/or counseling patient: Coding Level of Care Code 20702 SUB INP/OBS CARE 2/35MIN Diagnoses Acute urinary retention R33.8 Gross hematuria R31.0
[2023-10-24 09:29] LABS: Hematocrit (blood only) 29.9 % (42.0-52.0); Hemoglobin 9.7 g/dl (14.0-18.0)
[2023-10-24] MEDS: ADVANCED PROBIOTIC 625 MG CAPSULE PO SCH (10:54)
--- NOTE | 2023-10-24 15:17 | Hospitalist Progress Note ---
Date of Service October 24, 2023 Assessment & Plan (1) Lumbar spinal stenosis: (2) Urinary retention: (3) Hydronephrosis: (4) SAMANTHA (acute kidney injury): (5) Type 2 diabetes mellitus with diabetic neuropathy, unspecified: (6) CAD (coronary artery disease): (7) Bipolar 1 disorder, depressed: Plan Patient is a 48 yr male who has significant past medical history of CAD with hx of POLY x 2 06/2022, T2DM, diabetic neuropathy, HTN, HLD, chronic HFrEF, history of ischemic cardiomyopathy, history of left central retinal artery occlusion, bipolar depression, generalized anxiety, history of tobacco abuse who presents to ED at the referral of PCP due to abnormal MRI results. Urinary retention Obstructive uropathy with bilateral hydroureteronephrosis Acute kidney injury due to above Suspected Complicated UTI --CT ABD: A Medrano catheter is present within a decompressed urinary bladder. Circumferential urinary bladder wall thickening with intraluminal debris/possible blood products. Correlate with urinalysis. Moderate generally symmetric bilateral hydroureteronephrosis may be secondary to the reported urinary bladder retention. No urolith identified. No bowel obstruction or bowel wall thickening. Cholelithiasis. -- Urine culture likely contaminated, repeat urine culture negative to date --Blood culture negative to date -- Oxybutynin on hold Continue Medrano catheter Empirically on Rocephin>> transition to Zosyn on 10/21 Continue Medrano Appreciate urology input Needs follow-up with urology on discharge Continue current management Hematuria ? Traumatic catheter Monitor CBC Appreciate urology input May need continuous bladder irrigation if hematuria worsens Will eventually need cystoscopy as outpatient Hold Plavix for now (discussed with cardiology, agrees with holding Plavix given > 1 year of DAPT) Continue Aspirin for now Hb 9.7 today Urology following Will consider to resume Plavix once hemoglobin more stable Will obtain anemia workup to rule out other causes of hemoglobin drop Acute kidney injury Proteinuria Outpt chart review revealed Cr in august was 2.2 Hold metformin and benazepril Avoid nephrotoxic agents as able Monitor renal function Appreciate nephrology input Needs follow-up with nephrology on discharge Cr 1.7today Renal function stable Chronic leukocytosis Was considered reactive leukocytosis in the past Follows with hematology as outpatient No obvious source of infection found currently Monitor CBC Peripheral smear--pending Cultures remain negative Empirically on Zosyn Will recheck CBC tomorrow Afebrile today Chronic Back Pain Lumbar Spinal stenosis on prior imaging Appreciate orthopedics input No significant gross neurological compression or spinal disease per Ortho No surgical indication currently as per Ortho CAD S/O POLY in 06/2022 Ischemic [employer] stress echo 05/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 Yasmany Merlos on Asa, statin, metoprolol Benazepril on hold due to SAMANTHA Hold Plavix for now DM II HbA1c 7.9 Controlled on metformin, Trulicity and Jardiance hold OP meds Continue insulin while hospitalized Monitor BGs Bipolar depression MED continue Cymbalta, Wellbutrin, Buspar HTN Hold amlodipine, and benazepril for now as BP low Continue beta-vera with holding parameters Monitor BP Diabetic neuropathy continue gabapentin follows [facility] neurology DVT Px: SCDs Re:hematuria Code Status FULL CODE Disposition PT OT prior to discharge Admission and Anticipated Discharge Date Admission Date: October 20, 2023 Subjective Patient is seen and examined at bedside Reports having diarrhea Hematuria continues to improve Discussed with nephrology today Abdominal/groin pain improved Denies any chest pain, dyspnea, nausea, vomiting Review of Systems Review of Systems: All systems reviewed & are unremarkable except as noted in Subjective Physical Exam Physical Exam: Physical Exam: Vitals signs as noted above General Appearance:Moderately built and nourished, no apparent distress Head: normocephalic, Atraumatic Eyes: normal inspection, EOMI Neck: supple, Trachea midline Respiratory/Chest: Normal breath sounds, CTA, No accessory muscle use Cardiovascular: S1, S2, No murmur Abdomen/GI:Soft, Non tender, Bowel sounds present Extremities/Musculoskeletal:normal inspection, no edema Neurologic/Psych:AAOX3, grossly no focal neurological deficits Skin: normal color, warm, +tattoos Results & Data Results & Data Vital Signs (Past 12 Hours) Vital Signs Temp Pulse Pulse Resp BP Pulse Ox O2 Del Method 10/24/23 15:10 91 H 10/24/23 11:53 36.8 C 93 H 16 124/76 96 Room Air 10/24/23 07:36 37.1 C 96 H 16 125/79 96 Room Air 10/24/23 07:15 94 H 10/24/23 03:15 36.7 C 95 H 18 116/74 96 Room Air Laboratory Results Short CBC 10/24/23 Range/Units 05:13 Hgb 9.7 L (14.0-18.0) g/dl Hct 29.9 L (42.0-52.0) % BMP 10/24/23 05:11 Sodium 137 Potassium 4.3 Chloride 107 Carbon Dioxide 24 BUN 23 Creatinine 1.70 H Glucose 160 H Calcium 8.4 L
[2023-10-25 07:05] LABS: Hemoglobin 10.2 g/dl (14.0-18.0); Mean Corpuscular Hemoglobin 27.3 pg (25.0-34.0); Mean Corpuscular Hgb Conc 31.9 g/dL (32.0-36.0); Mean Corpuscular Volume 85.8 fL (80.0-100.0); Platelet Count 333 K/uL (130-400); RDW Coefficient of Variation 14.1 % (11.5-14.5); RDW Standard Deviation 43.9 fL (36.4-46.3); Red Blood Count 3.73 M/uL (4.70-6.10); White Blood Count 13.03 K/ul (4.8-10.8)
[2023-10-25 07:35] LABS: BUN Creatinine Ratio 12.6 (10-20); Calcium 9.1 mg/dl (8.6-10.3); Creatinine Clr Calc Pharmacy 57.3 ml/min; Est GFR (African American) 52.6 ml/min; Est GFR (Non-African American) 45.4 ml/min; Potassium 4.3 mmol/L (3.5-5.1)
[2023-10-25 07:45] LABS: Folate (Folic Acid),Ser orPlas 9.1 ng/ml (>5.38)
[2023-10-25 07:55] LABS: Ferritin 126.8 ng/ml (8-388)
[2023-10-25] MEDS ORDERED: DOCUSATE SODIUM 100 MG CAP PO PRN (08:48)
--- NOTE | 2023-10-25 09:06 | Urology Progress Note ---
Date of Service October 25, 2023 Assessment & Plan (1) Acute urinary retention: (2) Gross hematuria: Plan 48yo/M admitted with acute urinary retention, SAMANTHA, hydronephrosis. CT abdomen pelvis was notable for bilateral hydronephrosis likely secondary to bladder distention and Medrano catheter present within the decompressed urinary bladder with circumferential bladder wall thickening and intraluminal debris. Afebrile, hemodynamically stable Labs reviewedcreatinine 1.75, WBC downtrending (13.03), hemoglobin 10.2 Urine culture final with more than 3 types of organisms, all high counts Blood cultures no growth Antibiotics broadened to Zosyn Unclear etiology for retention (?BPH, ?neurogenic) and hematuria (?traumatic catheter or rapid bladder decompression) Medrano catheter in place for management of retention Hematuria is improving, Medrano catheter currently draining clear urine Okay to manually irrigate as needed for clots, retention, suprapubic pain. Continue supportive care and antibiotic therapy Continue to trend labs He will need full hematuria work-up with cystoscopy in the future but this can be completed as outpatient Anticoagulation per primary team, urology can manage hematuria as needed Not unreasonable to restart anticoagulation so we can further assess urine characterization will follow Admission and Anticipated Discharge Date Admission Date: October 20, 2023 Subjective Patient seen and examined at bedside this morning No acute issues overnight Denies pain Medrano patent and draining appropriately Denies fever, chills, nausea or vomiting Review of Systems Constitutional: as per Subjective / HPI Genitourinary: + as per Subjective / HPI Physical Exam Constitutional: well developed and well nourished; no acute distress Respiratory: normal respiratory effort; no respiratory distress and no labored breathing Gastrointestinal (Abdomen): Inspection/Auscultation: abdomen normal to inspection Musculoskeletal: Head/Neck/Chest: normocephalic Neurologic: moves all extremities and awake Psychiatric: Orientation: alert and oriented x 3 Genitourinary: Medrano patent and draining clear urine Results & Data Vital Signs (Past 12 Hours) Vital Signs Temp Pulse Pulse Resp BP Pulse Ox O2 Del Method 10/25/23 07:55 36.8 C 84 16 144/90 H 98 Room Air 10/25/23 07:00 89 10/25/23 03:01 36.5 C 89 16 137/83 96 Room Air 10/24/23 23:19 37.4 C 90 16 147/88 H 98 Room Air 10/24/23 21:50 91 H 10/24/23 21:01 88 PG Care Time/CCT Total # of Minutes Spent Total Time Spent with Patient: Total time spent is greater than 50% in coordination of care (as documented) at patient's floor/unit and/or counseling patient: Coding Level of Care Code 82189 SUB INP/OBS CARE 1/25MIN Diagnoses Acute urinary retention R33.8 Gross hematuria R31.0
--- NOTE | 2023-10-25 16:21 | Hospitalist Progress Note ---
Date of Service October 25, 2023 Assessment & Plan (1) Lumbar spinal stenosis: (2) Urinary retention: (3) Hydronephrosis: (4) SAMANTHA (acute kidney injury): (5) Type 2 diabetes mellitus with diabetic neuropathy, unspecified: (6) CAD (coronary artery disease): (7) Bipolar 1 disorder, depressed: Plan Patient is a 48 yr male who has significant past medical history of CAD with hx of POLY x 2 06/2022, T2DM, diabetic neuropathy, HTN, HLD, chronic HFrEF, history of ischemic cardiomyopathy, history of left central retinal artery occlusion, bipolar depression, generalized anxiety, history of tobacco abuse who presents to ED at the referral of PCP due to abnormal MRI results. Urinary retention Obstructive uropathy with bilateral hydroureteronephrosis Acute kidney injury due to above Suspected Complicated UTI --CT ABD: A Medrano catheter is present within a decompressed urinary bladder. Circumferential urinary bladder wall thickening with intraluminal debris/possible blood products. Correlate with urinalysis. Moderate generally symmetric bilateral hydroureteronephrosis may be secondary to the reported urinary bladder retention. No urolith identified. No bowel obstruction or bowel wall thickening. Cholelithiasis. -- Urine culture likely contaminated, repeat urine culture negative to date --Blood culture negative to date -- Oxybutynin on hold Continue Medrano catheter Empirically on Rocephin>> transition to Zosyn on 10/21 Continue Medrano Appreciate urology input Needs follow-up with urology on discharge Cultures remain negative, leukocytosis trending down Hematuria ? Traumatic catheter Monitor CBC Appreciate urology input May need continuous bladder irrigation if hematuria worsens Will eventually need cystoscopy as outpatient Hold Plavix for now (discussed with cardiology, agrees with holding Plavix given > 1 year of DAPT) Continue Aspirin for now Hb 10.2 today Urology following Will resume Plavix today. Patient aware and agrees with plan Needs follow-up with urology on discharge Acute kidney injury Proteinuria Outpt chart review revealed Cr in august was 2.2 Hold metformin and benazepril Avoid nephrotoxic agents as able Monitor renal function Appreciate nephrology input Needs follow-up with nephrology on discharge Cr 1.7today Renal function stable Chronic leukocytosis Was considered reactive leukocytosis in the past Follows with hematology as outpatient No obvious source of infection found currently Monitor CBC Peripheral smear--suggestive of nonspecific leukocytosis Cultures remain negative Empirically on Zosyn for now Chronic Back Pain Lumbar Spinal stenosis on prior imaging Appreciate orthopedics input No significant gross neurological compression or spinal disease per Ortho No surgical indication currently as per Ortho CAD S/O POLY in 06/2022 Ischemic [employer] stress echo 05/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 Yasmany Merlos on Asa, statin, metoprolol Benazepril on hold due to SAMANTHA Hold Plavix for now DM II HbA1c 7.9 Controlled on metformin, Trulicity and Jardiance hold OP meds Continue insulin while hospitalized Monitor BGs Bipolar depression MED continue Cymbalta, Wellbutrin, Buspar HTN Hold amlodipine, and benazepril for now BP stable off above medications Continue beta-vera with holding parameters Monitor BP Diabetic neuropathy continue gabapentin follows [facility] neurology DVT Px: SCDs Re:hematuria Code Status FULL CODE Disposition PT OT prior to discharge Admission and Anticipated Discharge Date Admission Date: October 20, 2023 Subjective Patient is seen and examined at bedside No new complaints Diarrhea seem to have resolved Hemoglobin stable Abdominal/groin pain better Denies any chest pain, dyspnea, nausea, vomiting No other complaints Review of Systems Review of Systems: All systems reviewed & are unremarkable except as noted in Subjective Physical Exam Physical Exam: Physical Exam: Vitals signs as noted above General Appearance:Moderately built and nourished, no apparent distress Head: normocephalic, Atraumatic Eyes: normal inspection, EOMI Neck: supple, Trachea midline Respiratory/Chest: Normal breath sounds, CTA, No accessory muscle use Cardiovascular: S1, S2, No murmur Abdomen/GI:Soft, Non tender, Bowel sounds present Extremities/Musculoskeletal:normal inspection, no edema Neurologic/Psych:AAOX3, grossly no focal neurological deficits Skin: normal color, warm, +tattoos Results & Data Results & Data Vital Signs (Past 12 Hours) Vital Signs Temp Pulse Pulse Resp BP Pulse Ox O2 Del Method 10/25/23 15:39 36.8 C 90 16 123/76 98 Room Air 10/25/23 15:00 87 10/25/23 11:33 37.1 C 90 16 134/84 99 Room Air 10/25/23 08:00 Room Air 10/25/23 07:55 36.8 C 84 16 144/90 H 98 Room Air 10/25/23 07:00 89 Laboratory Results Short CBC 10/25/23 Range/Units 06:30 WBC 13.03 H (4.8-10.8) K/ul Hgb 10.2 L (14.0-18.0) g/dl Hct 32.0 L (42.0-52.0) % Plt Count 333 (130-400) K/uL BMP 10/25/23 06:30 Sodium 140 Potassium 4.3 Chloride 107 Carbon Dioxide 27 BUN 22 Creatinine 1.75 H Glucose 260 H Calcium 9.1
--- NOTE | 2023-10-25 16:56 | Nephrology Progress Note ---
Date of Service October 25, 2023 Assessment & Plan (1) SAMANTHA (acute kidney injury): Plan: He had normal kidney function with a creatinine of 1.1 as of June 2023. He was already starting to have abnormal creatinine in August with a outpatient blood work showing creatinine of 2.2. no follow-up blood work after that. at this point given the bilateral hydronephrosis the etiology of worsened kidney function has to be obstructive uropathy from bladder outlet obstruction causing bilateral hydronephrosis. creatinine plateau'd at 1.8 after placement of Medrano catheter. for now continue Medrano catheter >> though urinary retention etiology unclear reviewed Urology note; manual irrigation recommended I expect his kidney function to be somewhat better in the coming days and even may get back to normal. however with his underlying diabetes and complications related with diabetes his long-term renal prognosis is still bad. he does need to be followed with Nephrology. he has massive amount of proteinuria at this time but no evidence of nephrotic syndrome will address this proteinuria as an outpatient. he is eating and drinking very normally and so no need of IV fluid. Admission and Anticipated Discharge Date Admission Date: October 20, 2023 Subjective seen on am rounds. some back pain. no edema or sob Review of Systems 2 Review of Systems: All systems reviewed & are unremarkable except as noted in Subjective Physical Exam 2 Constitutional: well developed and well nourished; no acute distress Eyes: EOM intact bilaterally ENMT: Ears: no external ear abnormality Nose: no external nose abnormality Mouth: + dry oral mucous membranes Neck: no nuchal rigidity Respiratory: normal respiratory effort Auscultation: + diminished lung sounds Cardiovascular: Rate/Rhythm: regular rate and regular rhythm Extremities: n o edema Gastrointestinal (Abdomen): Inspection/Auscultation: normal bowel sounds P ercussion/Palpation: abdomen soft; abdomen nontender Musculoskeletal: Extremities: strength 5/5 throughout Skin: no rashes, warm and dry Neurologic: coats, fluent speech, no tremor Results & Data Vital Signs (Past 12 Hours) Vital Signs Temp Pulse Pulse Resp BP Pulse Ox O2 Del Method 10/25/23 15:39 36.8 C 90 16 123/76 98 Room Air 10/25/23 15:00 87 10/25/23 11:33 37.1 C 90 16 134/84 99 Room Air 10/25/23 08:00 Room Air 10/25/23 07:55 36.8 C 84 16 144/90 H 98 Room Air 10/25/23 07:00 89 Laboratory Results 10/25/23 06:30 10/25/23 06:30
[2023-10-26 06:05] LABS: BUN Creatinine Ratio 11.8 (10-20); Creatinine Clr Calc Pharmacy 53.9 ml/min; Est GFR (African American) 48.8 ml/min; Est GFR (Non-African American) 42.1 ml/min; Potassium 4.1 mmol/L (3.5-5.1)
[2023-10-26 06:20] LABS: Hematocrit (blood only) 30.6 % (42.0-52.0); Hemoglobin 9.9 g/dl (14.0-18.0); Mean Corpuscular Hemoglobin 27.7 pg (25.0-34.0); Mean Corpuscular Hgb Conc 32.4 g/dL (32.0-36.0); Mean Corpuscular Volume 85.5 fL (80.0-100.0); Mean Platelet Volume 10.8 fL (9.4-12.4); Platelet Count 349 K/uL (130-400); RDW Standard Deviation 43.4 fL (36.4-46.3); Red Blood Count 3.58 M/uL (4.70-6.10); White Blood Count 12.59 K/ul (4.8-10.8)
--- NOTE | 2023-10-26 08:32 | Urology Progress Note ---
Date of Service October 26, 2023 Assessment & Plan (1) Acute urinary retention: (2) Gross hematuria: Plan 48yo/M admitted with acute urinary retention, SAMANTHA, hydronephrosis. CT abdomen pelvis was notable for bilateral hydronephrosis likely secondary to bladder distention and Medrano catheter present within the decompressed urinary bladder with circumferential bladder wall thickening and intraluminal debris. Afebrile, hemodynamically stable Labs reviewedcreatinine 1.86, WBC downtrending (12.59), hemoglobin 9.9 Urine culture 10/18 with more than 3 types of organisms, all high counts, repeat UC 10/21 showed no growth Blood cultures no growth Remains on Zosyn Unclear etiology for retention (?BPH, ?neurogenic) and hematuria (?traumatic catheter or rapid bladder decompression) Medrano catheter in place for management of retention Hematuria improved, Medrano catheter currently draining clear yellow urine Okay to manually irrigate as needed for clots, retention, suprapubic pain. Continue supportive care and antibiotic therapy Continue to trend labs He will need full hematuria work-up with cystoscopy in the future but this can be completed as outpatient Recommend keep Medrano catheter upon discharge until urology follow-up Anticoagulation per primary team, urology can manage hematuria as needed Not unreasonable to restart anticoagulation so we can further assess urine characterization Will arrange outpatient follow-up with our service will sign off Admission and Anticipated Discharge Date Admission Date: October 20, 2023 Supervising Physician Co-Signing Physician Notes Patient seen and examined today I also reviewed his chart in detail His hemoglobin A1c is 7.9, current creatinine 1.8 He reports that his urinary retention occurred gradually over a series of weeks where he had dwindling strength of stream and feeling of emptying He currently has clear urine Recommendation for now: 1. Continue Medrano catheter for maximal bladder rest 2. Strict glucose control, my underlying suspicion is that uncontrolled diabetes has contributed/driven his urinary retention This also substantially increases risk of infections as well as CKD He has peripheral neuropathy implying he already has had some neurological compromise from his uncontrolled diabetes 3. Plan for outpatient voiding trialgiven his young age, I think there is a substantial chance that he has chronic voiding issues in the future I have explained this to him and stressed the importance of strict glucose control Can complete his hematuria workup as an outpatient as previously discussed Subjective Patient seen and examined at bedside this morning No acute issues overnight Generally tolerating Medrano catheter Denies fever, chills, nausea or vomiting Review of Systems Constitutional: as per Subjective / HPI Genitourinary: + as per Subjective / HPI Physical Exam Constitutional: well developed and well nourished; no acute distress Respiratory: normal respiratory effort; no respiratory distress and no labored breathing Gastrointestinal (Abdomen): Inspection/Auscultation: abdomen normal to inspection Musculoskeletal: Head/Neck/Chest: normocephalic Neurologic: moves all extremities and awake Psychiatric: Orientation: alert and oriented x 3 Genitourinary: Medrano patent and draining yellow urine Results & Data Vital Signs (Past 12 Hours) Vital Signs Temp Pulse Pulse Resp BP Pulse Ox O2 Del Method 10/26/23 08:06 37.0 C 89 18 154/98 H 97 Room Air 10/26/23 07:00 90 10/26/23 03:04 36.9 C 92 H 16 142/89 H 97 Room Air 10/25/23 23:21 37.2 C 99 H 16 141/93 H 96 Room Air 10/25/23 23:06 96 H PG Care Time/CCT Total # of Minutes Spent Total Time Spent with Patient: Total time spent is greater than 50% in coordination of care (as documented) at patient's floor/unit and/or counseling patient: Coding Level of Care Code 25339 SUB INP/OBS CARE 125MIN Diagnoses Acute urinary retention R33.8 Gross hematuria R31.0
[2023-10-26] MEDS: MICONAZOLE NITRATE POWDER 85 GM EXT PRN (08:39)
[2023-10-26] MEDS: LIDOCAINE 2% JELLY 5 ML TUBE EXT SCH (11:24)
--- NOTE | 2023-10-26 13:07 | Hospitalist Progress Note ---
Date of Service October 26, 2023 Assessment & Plan (1) Lumbar spinal stenosis: (2) Urinary retention: (3) Hydronephrosis: (4) SAMANTHA (acute kidney injury): (5) Type 2 diabetes mellitus with diabetic neuropathy, unspecified: (6) CAD (coronary artery disease): (7) Bipolar 1 disorder, depressed: Plan Patient is a 48 yr male who has significant past medical history of CAD with hx of POLY x 2 06/2022, T2DM, diabetic neuropathy, HTN, HLD, chronic HFrEF, history of ischemic cardiomyopathy, history of left central retinal artery occlusion, bipolar depression, generalized anxiety, history of tobacco abuse who presents to ED at the referral of PCP due to abnormal MRI results. Urinary retention Obstructive uropathy with bilateral hydroureteronephrosis Acute kidney injury due to above Suspected Complicated UTI --CT ABD: A Medrano catheter is present within a decompressed urinary bladder. Circumferential urinary bladder wall thickening with intraluminal debris/possible blood products. Correlate with urinalysis. Moderate generally symmetric bilateral hydroureteronephrosis may be secondary to the reported urinary bladder retention. No urolith identified. No bowel obstruction or bowel wall thickening. Cholelithiasis. -- Urine culture likely contaminated, repeat urine culture negative to date --Blood culture negative to date -- Oxybutynin on hold Continue Medrano catheter Empirically on Rocephin>> transition to Zosyn on 10/21 Continue Medrano Appreciate urology input Needs follow-up with urology on discharge Plan to discharge home today Voiding trial as outpatient Patient refused rehab placement Hematuria ? Traumatic catheter Monitor CBC Appreciate urology input May need continuous bladder irrigation if hematuria worsens Will eventually need cystoscopy as outpatient Plavix initially held (discussed with cardiology, agrees with holding Plavix given > 1 year of DAPT) Continue Aspirin Hb 9.9 today Urology following No hematuria after resuming Plavix Needs follow-up with urology on discharge Acute kidney injury Proteinuria Outpt chart review revealed Cr in august was 2.2 Hold metformin and benazepril Avoid nephrotoxic agents as able Monitor renal function Appreciate nephrology input Needs follow-up with nephrology on discharge Cr 1.8 today Chronic leukocytosis Was considered reactive leukocytosis in the past Follows with hematology as outpatient No obvious source of infection found currently Monitor CBC Peripheral smear--suggestive of nonspecific leukocytosis Cultures remain negative Advised to follow-up with her consumer product advisor as outpatient Chronic Back Pain Lumbar Spinal stenosis on prior imaging Appreciate orthopedics input No significant gross neurological compression or spinal disease per Ortho No surgical indication currently as per Ortho CAD S/O POLY in 06/2022 Ischemic [employer] stress echo 05/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 Yasmany Merlos on Asa, statin, metoprolol, Plavix Benazepril on hold due to SAMANTHA DM II HbA1c 7.9 Controlled on metformin, Trulicity and Jardiance hold OP meds Continue insulin while hospitalized Monitor BGs Bipolar depression MED continue Cymbalta, Wellbutrin, Buspar HTN Hold benazepril for now Continue beta-vera and Amlodipine Monitor BP Diabetic neuropathy continue gabapentin follows [facility] neurology DVT Px: SCDs Re:hematuria Code Status FULL CODE Disposition PT OT prior to discharge Admission and Anticipated Discharge Date Admission Date: October 20, 2023 Subjective Patient is seen and examined at bedside No new complaints Hematuria resolved Renal function stable Denies any chest pain, dyspnea, nausea, vomiting Plan to be discharged home today Review of Systems Review of Systems: All systems reviewed & are unremarkable except as noted in Subjective Physical Exam Physical Exam: Physical Exam: Vitals signs as noted above General Appearance:Moderately built and nourished, no apparent distress Head: normocephalic, Atraumatic Eyes: normal inspection, EOMI Neck: supple, Trachea midline Respiratory/Chest: Normal breath sounds, CTA, No accessory muscle use Cardiovascular: S1, S2, No murmur Abdomen/GI:Soft, Non tender, Bowel sounds present Extremities/Musculoskeletal:normal inspection, no edema Neurologic/Psych:AAOX3, grossly no focal neurological deficits Skin: normal color, warm, +tattoos Results & Data Results & Data Vital Signs (Past 12 Hours) Vital Signs Temp Pulse Pulse Resp BP Pulse Ox O2 Del Method 10/26/23 11:03 37.1 C 95 H 18 161/84 H 98 Room Air 10/26/23 09:00 Room Air 10/26/23 08:06 37.0 C 89 18 154/98 H 97 Room Air 10/26/23 07:00 90 10/26/23 03:04 36.9 C 92 H 16 142/89 H 97 Room Air Laboratory Results Short CBC 10/26/23 Range/Units 05:27 WBC 12.59 H (4.8-10.8) K/ul Hgb 9.9 L (14.0-18.0) g/dl Hct 30.6 L (42.0-52.0) % Plt Count 349 (130-400) K/uL BMP 10/26/23 05:27 Sodium 137 Potassium 4.1 Chloride 106 Carbon Dioxide 26 BUN 22 Creatinine 1.86 H Glucose 276 H Calcium 9.0
--- NOTE | 2023-10-26 13:11 | Nephrology Progress Note ---
Date of Service October 26, 2023 Assessment & Plan (1) SAMANTHA (acute kidney injury): Plan: He had normal kidney function with a creatinine of 1.1 as of June 2023. He was already starting to have abnormal creatinine in August with a outpatient blood work showing creatinine of 2.2. no follow-up blood work after that. at this point given the bilateral hydronephrosis the etiology of worsened kidney function has to be obstructive uropathy from bladder outlet obstruction causing bilateral hydronephrosis. creatinine plateau'd at 1.8 after placement of Pierce catheter. unclear if renal function will improve or not at this point for now continue Pierce catheter >> though urinary retention etiology unclear reviewed Urology note; manual irrigation recommended I expect his kidney function to be somewhat better in the coming days and even may get back to normal. however with his underlying diabetes and complications related with diabetes his long-term renal prognosis is still bad. he does need to be followed with Nephrology. he has massive amount of proteinuria at this time but no evidence of nephrotic syndrome will address this proteinuria as an outpatient. NEPHRO d/c recs: -BMP at pcp visit -hospital d/c visit w/ any physician [facility] in 2-3 wks w/ BMP, ACR, prot/creat, UACM, albumin, PTH, 25 OHD, phos, CBC/diff, trnasferrin sat to be ordered by nephro nurse -no nsaids after d/c -BMP to be drawn one week after pierce [place] [facility] [place] > pls have neph nurse f/u on when that voiding trial appt is and outcome -if pt has home BP cuff, he should bring to NEPHRO f/u visit for cuff check; prefer nephro over PCP cuff check for consistency -hold metformin and jardiance at hospital d/c Care coordinated w/ Dr Negron regarding d/c medications, nephro and pcp f/u and we are in agreement. (2) Orthostatic hypotension dysautonomic syndrome: Plan: noted on PT eval; likeliest cause is uncontrolled DM; refusing rehab; BP labile; pt w/ hx of CAD and PLEATER HAND w/ syncope/falls; sees Dr Jade, due Jun 2024 Admission and Anticipated Discharge Date Admission Date: October 20, 2023 Subjective no interval events; denies sob, n/v; for d/c w/ pierce and for OP cystoscopy; PT notes high risk of fall and + orthostatics Review of Systems 2 Review of Systems: All systems reviewed & are unremarkable except as noted in Subjective Physical Exam 2 Constitutional: well developed and well nourished; no acute distress Eyes: EOM intact bilaterally ENMT: Ears: no external ear abnormality Nose: no external nose abnormality Mouth: + dry oral mucous membranes Neck: no nuchal rigidity Respiratory: normal respiratory effort Auscultation: + diminished lung sounds Cardiovascular: Rate/Rhythm: regular rate and regular rhythm Extremities: n o edema Gastrointestinal (Abdomen): Inspection/Auscultation: normal bowel sounds P ercussion/Palpation: abdomen soft; abdomen nontender Musculoskeletal: Extremities: strength 5/5 throughout Skin: no rashes, warm and dry Results & Data Vital Signs (Past 12 Hours) Vital Signs Temp Pulse Pulse Resp BP Pulse Ox O2 Del Method 10/26/23 11:03 37.1 C 95 H 18 161/84 H 98 Room Air 10/26/23 09:00 Room Air 10/26/23 08:06 37.0 C 89 18 154/98 H 97 Room Air 10/26/23 07:00 90 10/26/23 03:04 36.9 C 92 H 16 142/89 H 97 Room Air Laboratory Results 10/26/23 05:27 10/26/23 05:27
--- NOTE | 2023-10-26 13:23 | Discharge Summary ---
Date of Service October 26, 2023 Admission HPI Per Admitting Provider This is a 48-year-old male who has significant past medical history of CAD with hx of POLY x 2 06/2022, T2DM, diabetic neuropathy, HTN, HLD, chronic HFrEF, history of ischemic cardiomyopathy, history of left central retinal artery occlusion, bipolar depression, generalized anxiety, history of tobacco abuse who presents to ED at the referral of PCP due to abnormal MRI results. He recently underwent an MRI of his lumbar spine per neurology due to progressing urinary incontinence which showed spinal stenosis, distended bladder and hydronephrosis. MRI was performed in early October. He also had abnormal lab work in August which showed an elevated creatinine at 2.2. Outpatient provider reached out to ask a doc urology who recommended patient have a Medrano placed.Of note patient is following with neurology due to diabetic neuropathy, gait and balance and now with new urinary incontinence. He was last hospitalized in January 2023 due to gastroenteritis versus GI symptoms in setting of marijuana use. He reports he has been experiencing falls for a few months. He has been working with [facility] for therapy. The past few months he legs would go completely and he would fall. His left is worse than his right. It goes down to his toes. It starts from his back down to toes. He has also been having incontinence. He would not know it was even coming out. His urine would just leak out. He denies any dysuria or urgency. He has noticed some blood. He has been on oxybutynin for a few months w/o improvement. He has chronic back pain in his lower back. He has prior hx of back fracture. His pain is getting worse and to the point when he walks he has to take a break. He does have obsessional constipation. He denies f/c/s, chest pain, sob, longo, palpitations, n/v/d, abd pain. He no longer smokes cigarettes but he chews 1/2 can a chew tobacco. He drinks 1- 2 beers a day. He states he has quit marijuana and since then he has drank a little bit more. Admission Exam Per Admitting Provider GENERAL APPEARANCE: AxOx4, chronically ill appearing gentleman, no acute distress. HEENT: NC, AT. MMM. EOMI, clear conjunctiva, oropharynx clear. NECK: Supple without lymphadenopathy. No stiffness or restricted ROM. HEART: Normal rate and regular rhythm, normal S1/S1, no m/r/g LUNGS: CTAB, moving air well. No crackles or wheezes are heard. ABDOMEN: Soft, nontender, nondistended with good bowel sounds heard. EXTREMITIES: Without cyanosis, clubbing or edema. NEUROLOGICAL: Grossly nonfocal. Alert and oriented, moving all 4 extremities. C N not formally tested but appear grossly intact. strength 5/5 in lower extremities, some back pain elucidated on exam : gross hematuria Skin: Warm and dry without any rash. Principal Diagnosis Obstructive uropathy with bilateral hydroureteronephrosis Acute kidney injury Suspected Complicated UTI Hematuria Chronic leukocytosis Discharge Data Allergies Allergy/AdvReac Type Severity Reaction Status Date / Time adhesive Allergy Intermediate Contact Verified 10/19/23 15:10 dermatitis latex Allergy Mild RASH Verified 10/19/23 15:10 tramadol Allergy Unknown n/v Verified 10/19/23 15:10 Consultations 10/19/23 14:41 ED Decision to Admit Stat 10/19/23 15:47 Consult Orthopedic Surgery Routine 10/19/23 15:47 Consult Urology Routine 10/20/23 08:16 Consult Nephrology Routine Procedures Performed Laboratory Results WBC 12.59 K/ul (4.8-10.8) H 10/26/23 05:27 RBC 3.58 M/uL (4.70-6.10) L 10/26/23 05:27 Hgb 9.9 g/dl (14.0-18.0) L 10/26/23 05:27 Hct 30.6 % (42.0-52.0) L 10/26/23 05:27 MCV 85.5 fL (80.0-100.0) 10/26/23 05:27 MCH 27.7 pg (25.0-34.0) 10/26/23 05:27 MCHC 32.4 g/dL (32.0-36.0) 10/26/23 05:27 RDW Std Deviation 43.4 fL (36.4-46.3) 10/26/23 05:27 RDW Coeff of Pancho 14.0 % (11.5-14.5) 10/26/23 05:27 Plt Count 349 K/uL (130-400) 10/26/23 05:27 MPV 10.8 fL (9.4-12.4) 10/26/23 05:27 Immature Gran % (Auto) 1.4 % 10/23/23 05:40 Neut % (Auto) 55.0 % 10/23/23 05:40 Lymph % (Auto) 22.3 % 10/23/23 05:40 Beauregard % (Auto) 14.9 % 10/23/23 05:40 Eos % (Auto) 5.4 % 10/23/23 05:40 Baso % (Auto) 1.0 % 10/23/23 05:40 Neut # (Auto) 8.98 K/uL (1.40-6.50) H 10/23/23 05:40 Lymph # (Auto) 3.65 K/uL (1.20-3.40) H 10/23/23 05:40 Beauregard # (Auto) 2.44 K/uL (0.11-0.59) H 10/23/23 05:40 Eos # (Auto) 0.88 K/uL (0.00-0.50) H 10/23/23 05:40 Baso # (Auto) 0.16 K/uL (0.00-0.20) 10/23/23 05:40 Immature Gran # (Auto) 0.23 K/uL (0.01-0.20) H 10/23/23 05:40 Echinocytes 1+ 10/23/23 05:40 Peripher Smr Path Cons 10/23/23 05:40 Sodium 137 mmol/L (136-145) 10/26/23 05:27 Potassium 4.1 mmol/L (3.5-5.1) 10/26/23 05:27 Chloride 106 mmol/L (98-107) 10/26/23 05:27 Carbon Dioxide 26 mmol/L (21-32) 10/26/23 05:27 Anion Gap 5 (3-11) 10/26/23 05:27 BUN 22 mg/dl (6-23) 10/26/23 05:27 Creatinine 1.86 mg/dl (0.6-1.4) H 10/26/23 05:27 Est Cr Clr Drug Dosing 53.9 ml/min 10/26/23 05:27 Est GFR ( Amer) 48.8 ml/min 10/26/23 05:27 Est GFR (Non-Af Amer) 42.1 ml/min 10/26/23 05:27 BUN/Creatinine Ratio 11.8 (10-20) 10/26/23 05:27 Glucose 276 mg/dl (70-99(Fasting)) H 10/26/23 05:27 POC Glucose 188 mg/dl (70-99) H 10/26/23 11:46 Estimat Average Glucose 180 mg/dl 10/20/23 05:58 Hemoglobin A1c 7.9 % (4.5-5.6) H 10/20/23 05:58 Calcium 9.0 mg/dl (8.6-10.3) 10/26/23 05:27 Magnesium 1.7 mg/dl (1.7-2.4) 10/20/23 05:58 Iron 32 mcg/dl (35-175) L 10/25/23 06:30 TIBC 227 mcg/dl (250-450) L 10/25/23 06:30 Unsaturated IBC 195 mcg/dl (155-355) 10/25/23 06:30 Transferrin % Sat 14 % (20-50) L 10/25/23 06:30 Ferritin 126.8 ng/ml (8-388) 10/25/23 06:30 Total Bilirubin 0.6 mg/dl (0.2-1.0) 10/20/23 05:58 AST 13 U/L (13-39) 10/20/23 05:58 ALT 18 U/L (7-52) 10/20/23 05:58 Alkaline Phosphatase 73 U/L (34-104) 10/20/23 05:58 Total Protein 5.9 gm/dl (6.0-8.3) L 10/20/23 05:58 Albumin 3.3 gm/dl (3.4-5.0) L 10/20/23 05:58 Globulin 2.6 gm/dl (2.5-4.0) 10/20/23 05:58 Albumin/Globulin Ratio 1.3 (0.9-2) 10/20/23 05:58 Vitamin B12 205 pg/ml (180-914) 10/25/23 06:30 Folate 9.10 ng/ml (>5.38) 10/25/23 06:30 Urine Color Dark Yellow 10/19/23 12:20 Urine Appearance Cloudy (Clear) A 10/19/23 12:20 Urine pH 6.0 (4.5-7.5) 10/19/23 12:20 Ur Specific [place] 1.019 (1.000-1.030) 10/19/23 12:20 Urine Protein 2+ (Negative) H 10/19/23 12:20 Urine Glucose (UA) 3+ (Negative) H 10/19/23 12:20 Urine Ketones Negative (Negative) 10/19/23 12:20 Urine Blood 3+ (Negative) H 10/19/23 12:20 Urine Nitrite Negative (Negative) 10/19/23 12:20 Urine Bilirubin Negative (Negative) 10/19/23 12:20 Urine Urobilinogen Negative (Negative) 10/19/23 12:20 Ur Leukocyte Esterase 1+ (Negative) H 10/19/23 12:20 Urine WBC (Auto) 21-50 /hpf (0-5) H 10/19/23 12:20 Urine RBC (Auto) >20 /hpf (0-2) H 10/19/23 12:20 U Hyaline Cast (Auto) 6-10 /lpf (0-2) H 10/19/23 12:20 U Epithel Cells (Auto) 3-5 /hpf (0-2) H 10/19/23 12:20 Urine Bacteria (Auto) None Seen (None Seen) 10/19/23 12:20 Ur Random Creatinine 31.2 mg/dl 10/19/23 14:45 U Random Total Protein 517.1 mg/dl (0-11.9) H 10/19/23 14:45 Protein/Creatinin Ratio 16.6 (0-0.2) H 10/19/23 14:45 Stool Occult Bld Scrn Negative (Negative) 10/24/23 15:31 Stl C. diff Tox B Gene (Neg) 10/24/23 12:05 Impressions Abdomen/Pelvis CT 10/19/23 16:[address] WITHOUT CONTRAST CT DOSE: 1315.23 mGy.cm HISTORY: Acute kidney injury with reported renal retention SAMANTHA, retention TECHNIQUE: Multiaxial CT images of the abdomen and pelvis were performed without contrast. A dose lowering technique was utilized adhering to the principles of ALARA. COMPARISON STUDY: CT abdomen and pelvis 02/15/2018 FINDINGS: No acute lower thoracic abnormality. There is no free air. Unremarkable unenhanced spleen, pancreas and adrenal glands. Cholelithiasis. The liver is within normal limits. There is symmetric moderate bilateral hydroureteronephrosis with bilateral perinephric stranding. No renal or ureteral calculi identified. Decompressed urinary bladder with circumferential wall thickening and Medrano catheter in place. Debris and air within the bladder lumen. Perivesicular inflammatory stranding. The prostate is mildly enlarged.. Atherosclerosis of aorta and branch vessels. No lymphadenopathy. Debris-filled stomach. No bowel obstruction or bowel wall thickening. Moderate colonic fecal retention. Noninflamed appendix. Left proximal femoral ORIF hardware. No acute fracture. IMPRESSION: 1. A Medrano catheter is present within a decompressed urinary bladder. Circumferential urinary bladder wall thickening with intraluminal debris/possible blood products. Correlate with urinalysis. 2. Moderate generally symmetric bilateral hydroureteronephrosis may be secondary to the reported urinary bladder retention. No urolith identified. 3. No bowel obstruction or bowel wall thickening. 4. Cholelithiasis. ACT 112: Negative or not required by law. The above report was generated using voice recognition software. It may contain grammatical, syntax or spelling errors. Electronically signed by: Franklin Polanco M.D. 10/19/2023 4:31 PM Ordered Studies 10/19/23 16:03 CT abd pelvis wo con Stat Hospital Course (1) Lumbar spinal stenosis: (2) Urinary retention: (3) Hydronephrosis: (4) SAMANTHA (acute kidney injury): (5) Type 2 diabetes mellitus with diabetic neuropathy, unspecified: (6) CAD (coronary artery disease): (7) Bipolar 1 disorder, depressed: Plan Patient is a 48 yr male who has significant past medical history of CAD with hx of POLY x 2 06/2022, T2DM, diabetic neuropathy, HTN, HLD, chronic HFrEF, history of ischemic cardiomyopathy, history of left central retinal artery occlusion, bipolar depression, generalized anxiety, history of tobacco abuse who presents to ED at the referral of PCP due to abnormal MRI results. Urinary retention Obstructive uropathy with bilateral hydroureteronephrosis Acute kidney injury due to above Suspected Complicated UTI --CT ABD: A Medrano catheter is present within a decompressed urinary bladder. Circumferential urinary bladder wall thickening with intraluminal debris/possible blood products. Correlate with urinalysis. Moderate generally symmetric bilateral hydroureteronephrosis may be secondary to the reported urinary bladder retention. No urolith identified. No bowel obstruction or bowel wall thickening. Cholelithiasis. -- Urine culture likely contaminated, repeat urine culture negative to date --Blood culture negative to date -- Oxybutynin on hold Continue Medrano catheter Empirically on Rocephin>> transition to Zosyn on 10/21 Continue Medrano Appreciate urology input Needs follow-up with urology on discharge Plan to discharge home today Voiding trial as outpatient Patient refused rehab placement Hematuria ? Traumatic catheter Monitor CBC Appreciate urology input May need continuous bladder irrigation if hematuria worsens Will eventually need cystoscopy as outpatient Plavix initially held (discussed with cardiology, agrees with holding Plavix given > 1 year of DAPT) Continue Aspirin Hb 9.9 today Urology following No hematuria after resuming Plavix Needs follow-up with urology on discharge Acute kidney injury Proteinuria Outpt chart review revealed Cr in august was 2.2 Hold metformin and benazepril Avoid nephrotoxic agents as able Monitor renal function Appreciate nephrology input Needs follow-up with nephrology on discharge Cr 1.8 today Chronic leukocytosis Was considered reactive leukocytosis in the past Follows with hematology as outpatient No obvious source of infection found currently Monitor CBC Peripheral smear--suggestive of nonspecific leukocytosis Cultures remain negative Advised to follow-up with her cop examiner as outpatient Chronic Back Pain Lumbar Spinal stenosis on prior imaging Appreciate orthopedics input No significant gross neurological compression or spinal disease per Ortho No surgical indication currently as per Ortho CAD S/O POLY in 06/2022 Ischemic [employer] stress echo 05/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 Yasmany Merlos on Asa, statin, metoprolol, Plavix Benazepril on hold due to SAMANTHA DM II HbA1c 7.9 Controlled on metformin, Trulicity and Jardiance hold OP meds Continue insulin while hospitalized Monitor BGs Bipolar depression MED continue Cymbalta, Wellbutrin, Buspar HTN Hold benazepril for now Continue beta-vera and Amlodipine Monitor BP Diabetic neuropathy continue gabapentin follows [facility] neurology DVT Px: SCDs Re:hematuria Code Status FULL CODE Disposition PT OT prior to discharge Total Time Total Time Spent Total Time Spent (In Minutes): 54 minutes Discharge Plan Discharge Items Patient Disposition: Home - Home Health Services Reason For Visit: SAMANTHA, URINARY RETENTION Discharge Diagnosis: Obstructive uropathy with bilateral hydroureteronephrosis Acute kidney injury Suspected Complicated UTI Hematuria Chronic leukocytosis Activity: Per Instructions section Exercise/Sports: Wait until after follow-up appointment Non-emergency contact: Primary Care Provider, Hemotherapist, Oncologist and Urologist Call non-emergency contact if: you have any medication questions, your symptoms worsen, your pain is concerning for you and you have a fever Follow-up/Referrals: Constance Taylor CRNP [Nurse Practitioner] - (The Urology office will contact you for a follow up appointment.) Rusty Price MD [Surgeon] - (The Nephrology office will contact you for a follow up appointment/lab work.) Ruben Gordillo MD [Primary Care Provider] - (Date & Time 11/02/2023 11:20 AM Provider Ruben Gordillo MD [facility] ) Diet: Carb Consistent or DM2 and Heart Healthy Addtl Attending Provider Instructions: Follow-up with your primary care physician on 11/02/2023 11:20 AM Follow-up with your substitute teacher Dr. Price in 1 to 2 weeks Follow-up with your urologist PLACIDO Savage as recommended Consider following with your oncologist for further evaluation of elevated white blood cell count --Complete the antibiotic course Augmentin for 2 more days as prescribed --Continue Medrano catheter for now. Voiding trial as per your urologist as outpatient -- Final blood cultures are pending at the time of discharge. Follow-up with your physician for results. -- Obtain blood test (basic metabolic panel) in 1 week and follow-up with your physician for further recommendations. Seek immediate medical attention if your symptoms reoccur or worsen Please take all medications as instructed on discharge list below. Please call if you have any questions or problems. You can reach a [facility] hospitalist on duty at [facility] 24 hours a day by calling [phone] Pending Studies at Discharge: Yes Studies:: Blood Cultures Stand-Alone Forms: My [facility] [place], Smoking Cessation Medications and DC Order Prescriptions: New amoxicillin-pot clavulanate 500-125 mg Tablet 1 tab PO BIDM Qty: 5 0RF lidocaine HCl 2 % Jelly In Applicator 0.5 ml EXT BID PRN (Reason: catheter Pain) Qty: 125 0RF Advanced Probiotic 625 mg (10 billion cell) Capsule 1 cap PO DAILY Qty: 7 0RF amlodipine 5 mg tablet 5 mg PO DAILY Qty: 30 0RF Continued pantoprazole 40 mg Tablet,Delayed Release (Dr/Ec) 40 mg PO QAM gabapentin 300 mg Capsule 300 mg PO TID montelukast 10 mg Tablet 10 mg PO QAM buspirone 10 mg tablet 10 mg PO BID cholecalciferol (vitamin D3) [Vitamin D3] 25 mcg (1,000 unit) capsule 25 mcg PO QDL duloxetine 60 mg capsule,delayed release(DR/EC) 60 mg PO QAM Jardiance 10 mg tablet 10 mg PO QAM naloxone 4 mg/actuation spray,non-aerosol 1 spray INTRANASAL DIRECTED aspirin 81 mg tablet,delayed release (DR/EC) 81 mg PO QAM duloxetine 30 mg capsule,delayed release(DR/EC) 30 mg PO QAM Trulicity 1.5 mg/0.5 mL pen injector 1.5 mg SUBCUT Rx Instructions: take on TUESDAYS bupropion HCl 450 mg tablet extended release 24 hr 450 mg PO QAM clonazepam 0.5 mg tablet 0.5 mg PO BID PRN (Reason: Anxiety) magnesium oxide 400 mg (241.3 mg magnesium) tablet 400 mg PO QAM oxybutynin chloride 10 mg tablet extended release 24hr 10 mg PO QAM atorvastatin 40 mg tablet 40 mg PO QAM clopidogrel 75 mg tablet 75 mg PO DAILYBL ramelteon 8 mg tablet 8 mg PO HS PRN (Reason: Sleep) metoprolol succinate 25 mg tablet extended release 24 hr 25 mg PO BID metformin 500 mg tablet extended release 24 hr 500 mg PO BID Held amlodipine-benazepril 5-20 mg capsule 1 cap PO DAILY Hold Instructions: Hold until further recommendations by your substitute teacher/Primary care physician. Discharge Orders: Discharge Order (Routine); Ordered 10/26/23 Ordered By: Daron Hurst/Other Patient Handouts: Managing Type 2 Diabetes, Special Foot Care for Diabetes Admission Data Admit Date/Time: 10/20/23 14:51 Attending Provider: Daron Negron Admit Provider: Linda Carrero Primary Care Provider: Ruben Gordillo Other Providers: Lyle Adamson; Martín Lin; Linda Carrero; Joan Rubalcava; Rusty Price; Baldemar De La Cruz; Christine Schroeder; Marcella Jalloh; [facility] Fax
[2023-10-26] MEDS ORDERED: AMOXICILLIN/CLAVULANATE 500 MG TAB PO SCH (17:00)
== END 2023-10-26 15:10 | disposition home health service (06) | DRG 699 ==
LOC: ED 11:56 → EDINP 11:56 → SUATTDRO 15:08 → 2N 19:08

== ENCOUNTER 2023-11-06 17:26 | Inpatient (IN) ==
[2023-11-06 18:59] LABS: Basophils # (auto) 0.29 K/uL (0.00-0.20); Basophils % (auto) 1.4 %; Eosinophils # (auto) 0.46 K/uL (0.00-0.50); Eosinophils % (auto) 2.3 %; Hematocrit (blood only) 37.2 % (42.0-52.0); Hemoglobin 11.9 g/dl (14.0-18.0); Immature Granulocytes # (auto) 0.45 K/uL (0.01-0.20); Immature Granulocytes % (auto) 2.2 %; Lymphocytes # (auto) 3.06 K/uL (1.20-3.40); Lymphocytes % (auto) 15.2 %; Mean Corpuscular Hemoglobin 27.4 pg (25.0-34.0); Mean Corpuscular Volume 85.7 fL (80.0-100.0); Mean Platelet Volume 10.9 fL (9.4-12.4); Monocytes # (auto) 1.93 K/uL (0.11-0.59); Monocytes % (auto) 9.6 %; Neutrophils # (auto) 13.88 K/uL (1.40-6.50); Neutrophils % (auto) 69.3 %; Platelet Count 505 K/uL (130-400); RDW Coefficient of Variation 13.8 % (11.5-14.5); RDW Standard Deviation 42.8 fL (36.4-46.3); Red Blood Count 4.34 M/uL (4.70-6.10); White Blood Count 20.07 K/ul (4.8-10.8)
[2023-11-06 19:04] LABS: Acetaminophen < 3 ug/ml (10-30); Salicylate < 3.0 mg/dl (3.0-30)
[2023-11-06] MEDS: SODIUM CHLORIDE 0.9% 500 ML IV ONE ×2 (19:11→20:19)
[2023-11-06] MEDS: SODIUM CHLORIDE 0.9% 1,000 ML IV SCH ×2 (19:11→20:25)
[2023-11-06 19:14] LABS: Albumin Globulin Ratio 1.2 (0.9-2); BUN Creatinine Ratio 11.7 (10-20); Bilirubin,Total 0.8 mg/dl (0.2-1.0); Calcium 9.3 mg/dl (8.6-10.3); Creatinine Clr Calc Pharmacy 46.8 ml/min; Est GFR (African American) 41.2 ml/min; Est GFR (Non-African American) 35.6 ml/min; Globulin 3.4 gm/dl (2.5-4.0); Magnesium 1.8 mg/dl (1.7-2.4); Potassium 4.6 mmol/L (3.5-5.1); Total Protein 7.4 gm/dl (6.0-8.3)
--- NOTE | 2023-11-06 19:18 | XRay Report ---
XR chest 1V portable HISTORY: fall COMPARISON: Chest 02/19/2015. FINDINGS: The lungs are clear. Cardiac silhouette is normal in size. No pleural effusions. No pneumot horax. IMPRESSION: No acute process. ACT 112: Negative or not required by law. Electronically signed by: Quinton Cooper M.D. 11/06/2023 7:16 PM
[2023-11-06 19:25] LABS: Partial Thromboplastin Ratio 0.9; Partial Thromboplastin Time 24 Seconds (21-31); Prothrombin Time 10.9 Seconds (9.0-12.0)
[2023-11-06 19:30] LABS: Thyroid Stimulating Hormone 2.761 uIu/ml (0.300-4.500)
[2023-11-06 19:43] LABS: Appearance Urine Turbid (Clear); Bacteria Urine Automated 4+ (None Seen); Bilirubin Urine Negative (Negative); Blood Urine 1+ (Negative); Color Urine Dark Yellow; Glucose Urine UA 3+ (Negative); Ketones Urine Trace (Negative); Leukocyte Esterase Urine 2+ (Negative); Nitrite Urine Positive (Negative); Protein Urine 2+ (Negative); Urobilinogen Urine Negative (Negative); WBC Urine Automated >50 /hpf (0-5); pH Urine 5.5 (4.5-7.5)
[2023-11-06] MEDS: CEFEPIME 2,000 MG/20 ML VIAL IV STA (19:46)
[2023-11-06 19:52] LABS: RBC Urine Automated 0-2 /hpf (0-2)
--- NOTE | 2023-11-06 19:52 | CT Scan Report ---
HEAD CT NONCONTRAST CT DOSE: HISTORY: fall TECHNIQUE: Multiaxial CT images of the head were performed without the use of intravenous contrast. A utomated exposure control was utilized for this study. A dose lowering technique was utilized adheri ng to the principles of ALARA. Comparison: Head CT 07/13/2015. Findings: The paranasal sinuses and mastoid air cells are clear. The calvarium and skull base are int act. The ventricles and sulci are within normal limits. There is no mass, hematoma, midline shift, or acute infarct. Impression: No acute intracranial abnormality. ACT 112: Negative or not required by law. Electronically signed by: Quinton Cooper M.D. 11/06/2023 7:49 PM
--- NOTE | 2023-11-06 19:56 | CT Scan Report ---
CERVICAL SPINE CT CT DOSE: HISTORY: fall TECHNIQUE: Multiaxial CT images of the cervical spine were performed and reformatted in the sagittal and coronal plane without the use of contrast. A dose lowering technique was utilized adhering to th e principles of ALARA. COMPARISON: Cervical spine CT 02/24/2011. FINDINGS: No fractures. No subluxation. Prevertebral soft tissues and the C1-C2 interval are intact. No pneumothorax. IMPRESSION: No fractures within the cervical spine. ACT 112: Negative or not required by law. Electronically signed by: Quinton Cooper M.D. 11/06/2023 7:53 PM
--- NOTE | 2023-11-06 20:13 | CT Scan Report ---
Exam(s): CT ABDOMEN + PELVIS Without Contrast EXAM: CT Abdomen and Pelvis Without Intravenous Contrast CLINICAL HISTORY: Reason for exam: fall. TECHNIQUE: Axial computed tomography images of the abdomen and pelvis without intravenous contrast. CTDI is 25.66 mGy and DLP is 542.27 mGy-cm. Automated exposure control was utilized for the study. A dose lowering technique was utilized adhering to the principles of ALARA. COMPARISON: CT abdomen/pelvis on 10/19/2023 FINDINGS: Lung bases: Mild dependent atelectasis bilaterally. Heart: Coronary artery calcifications. ABDOMEN: Liver: Unremarkable. Gallbladder and bile ducts: Cholelithiasis. No ductal dilation. Pancreas: Unremarkable. No ductal dilation. Spleen: Unremarkable. No splenomegaly. Adrenals: Unremarkable. No mass. Kidneys and ureters: Hydronephrosis or stone. Stomach and bowel: Large amount of stool. No small bowel obstruction. No mucosal thickening. PELVIS: Appendix: No findings to suggest acute appendicitis. Bladder: Medrano catheter in an underdistended bladder limits evaluation. Please correlate with urinalysis to evaluate for cystitis. No stones. Reproductive: Unremarkable as visualized. ABDOMEN and PELVIS: Intraperitoneal space: Unremarkable. No free air. No significant fluid collection. Bones/joints: Screws traversing the left femoral neck. No acute fracture. No dislocation. Soft tissues: Small fat-containing left inguinal hernia. Vasculature: Phleboliths in pelvis. Atherosclerotic changes of the vasculature. No aortic aneurysm. Lymph nodes: Unremarkable. No enlarged lymph nodes. IMPRESSION: 1. Large amount of stool. No small bowel obstruction. 2. Medrano catheter in an underdistended bladder limits evaluation. Please correlate with urinalysis to evaluate for cystitis. 3. Cholelithiasis. 4. No acute traumatic abnormality. Electronically signed by: Richard Lizarraga M.D. 11/06/23 20:12 PM
[2023-11-06 20:31] LABS: Amphetamines+Metham, Urine Neg (Neg); Barbiturates, Urine Neg (Neg); Benzodiazepine, Urine Pos (Neg); Cocaine, Urine Neg (Neg); MDMA (Ecstacy), Urine Pos (Neg); Marijuana, Urine Neg (Neg); Methadone, Urine Neg (Neg); Opiate, Urine Neg (Neg); Phencyclidine, Urine Neg (Neg)
[2023-11-06 20:32] LABS: Fentanyl, Urine Neg (Neg)
--- NOTE | 2023-11-06 21:32 | Emergency Department Note ---
History of Present Illness General Chief complaint: Fall Time Seen by Provider: 11/06/23 18:10 History of Present Illness Provider complaint: Recurrent falls Onset (ago): day(s) 1 Maximum Pain Intensity: 7 48-year-old male presents emergency department for recurrent falls. Patient was brought in by EMS. Initially there was concerns that the patient was having suicidal ideation as they found him lying on the bathroom floor with a knife next to them. Patient adamantly refuses any suicidal or homicidal ideation. He states that he feels very weak and he cannot gain his strength to stand up. He reports a headache. No neck pain. No nausea or vomiting. Home Medications Medication Instructions Recorded Confirmed Type gabapentin 300 mg capsule 300 mg PO TID 06/16/22 11/06/23 History montelukast 10 mg tablet 10 mg PO QAM 06/16/22 11/06/23 History pantoprazole 40 mg tablet,delayed 40 mg PO QAM 06/16/22 11/06/23 History release aspirin 81 mg tablet,delayed 81 mg PO QAM 01/31/23 11/06/23 History release buspirone 10 mg tablet 10 mg PO BID 01/31/23 11/06/23 History cholecalciferol (vitamin D3) 25 25 mcg PO QDL 01/31/23 11/06/23 History mcg (1,000 unit) capsule (Vitamin D3) duloxetine 60 mg capsule,delayed 60 mg PO QAM 01/31/23 11/06/23 History release empagliflozin 10 mg tablet 10 mg PO QAM 01/31/23 11/06/23 History (Jardiance) amlodipine 5 mg-benazepril 20 mg 1 cap PO DAILY 10/19/23 11/06/23 History capsule atorvastatin 40 mg tablet 40 mg PO QAM 10/19/23 11/06/23 History bupropion HCl 450 mg 24 hr tablet, 450 mg PO QAM 10/19/23 11/06/23 History extended release clonazepam 0.5 mg tablet 0.5 mg PO BID PRN Anxiety 10/19/23 11/06/23 History clopidogrel 75 mg tablet 75 mg PO DAILYBL 10/19/23 11/06/23 History dulaglutide 1.5 mg/0.5 mL 1.5 mg subcut TU 10/19/23 11/06/23 History subcutaneous pen injector (Trulicity) duloxetine 30 mg capsule,delayed 30 mg PO QAM 10/19/23 11/06/23 History release magnesium oxide 400 mg (241.3 mg 400 mg PO QAM 10/19/23 11/06/23 History magnesium) tablet metformin 500 mg tablet,extended 500 mg PO BID 10/19/23 11/06/23 History release 24 hr metoprolol succinate 25 mg 25 mg PO BID 10/19/23 11/06/23 History tablet,extended release 24 hr oxybutynin chloride 10 mg 10 mg PO QAM 10/19/23 11/06/23 History tablet,extended release 24 hr ramelteon 8 mg tablet 8 mg PO HS PRN Sleep 10/19/23 11/06/23 History amlodipine 5 mg tablet 5 mg PO DAILY #30 tabs 10/26/23 11/06/23 Rx lidocaine HCl 2 % mucosal jelly in 0.5 ml EXT BID PRN catheter Pain 10/26/23 11/06/23 Rx applicator #125 mL Allergies Allergy/AdvReac Type Severity Reaction Status Date / Time adhesive Allergy Intermediate Contact Verified 11/06/23 21:08 dermatitis latex Allergy Mild RASH Verified 11/06/23 21:08 tramadol Allergy Unknown n/v Verified 11/06/23 21:08 Past Med/Surg History Problem List (Updated 11/06/23 @ 21:38 by Gilbert Felder MD) Acute UTI (Acute) Sepsis (Acute) Orthostatic hypotension dysautonomic syndrome Gross hematuria Chronic back pain greater than 3 months duration Leukocytosis (Acute) Acute urinary retention (Acute) SAMANTHA (acute kidney injury) (Acute) SAMANTHA (acute kidney injury) Hydronephrosis Urinary retention Lumbar spinal stenosis Metabolic acidosis Hyperglycemia Sinus tachycardia Dehydration (Acute) Nausea vomiting and diarrhea (Acute) Acute hyperglycemia (Acute) Subcapital fracture of left femur Closed left femoral fracture Personal history of diabetic foot ulcer Type 2 diabetes mellitus with diabetic neuropathy, unspecified CAD (coronary artery disease) Mood disorder History of percutaneous coronary intervention S/P cardiac catheterization Bipolar 1 disorder, depressed Systolic congestive heart failure Ischemic cardiomyopathy Hyperlipidemia Hypertension Type 2 diabetes mellitus Medical History Noncompliance Central retinal artery occlusion, left eye Diabetic peripheral neuropathy Surgical History S/P arthroscopic knee surgery History of dental surgery Family History Other Cancer Diabetes Hypertension Social History Smoking Status: Light tobacco smoker Tobacco Type: Smokeless Tobacco (Dip or Chew) Second Hand Exposure: No; Do You Dip or Chew Tobacco: Yes; Hx Alcohol Use: Yes Alcohol type: beer Hx Substance Use: No Preferred Language: Norwegian Communication Ability: Effective [employer]r Required: No Beliefs That Will Affect Care: None Current Living Situation: Family Current Living Situation Comment: Lives with parents Feels Safe at Home: Yes Assistive Devices: Cane, Glasses and Wheelchair Physical Exam Vital Signs Vital Signs - 24 hr 11/06/23 17:35 11/06/23 17:45 11/06/23 17:45 Temperature 36.6 C 36.6 C Temperature Source Oral Oral Pulse Rate 102 H 101 H Pulse Rate [Apical] 101 H Respiratory Rate 18 18 Respiratory Effort / Characteristics Non-Labored Spontaneous Non-Labored Spontaneous Respiratory Depth Normal Normal Respiratory Pattern Regular Blood Pressure 97/78 L Blood Pressure [Right Arm] 97/78 L Blood Pressure Mean 84 Blood Pressure Mean [Right Arm] 84 Blood Pressure Position Semi-fowlers Blood Pressure Position [Right Arm] Semi-fowlers Pulse Oximetry 98 98 Oxygen Delivery Method Room Air Room Air Sepsis Recent Fever Within 48 Hours No Sepsis New/Unexplained Change in Mental Status N/A Sepsis Action Taken by Nursing No Action Required Physical Exam GENERAL: Disheveled. Somnolent. HENT: Exam performed. - Head: Normocephalic and atraumatic. - Right Ear: External ear normal. No mastoid erythema - Left Ear: External ear normal. No mastoid erythema - Mouth/Throat: Dry mucous membranes. EYES: Conjunctivae and EOM are normal. Pupils are equal, round, and reactive to light. Right eye exhibits no discharge. Left eye exhibits no discharge. No scleral icterus. NECK: Normal range of motion. Neck supple. No JVD present. No spinous process tenderness present. CV: Normal rate, regular rhythm, normal heart sounds and intact distal pulses. There is no peripheral edema. Palpable radial pulses bue. PULM/CHEST: Effort normal and breath sounds normal. No respiratory distress. No stridor. He has no wheezes. He has no rales. - Chest Wall: He exhibits no tenderness. No crepitus bilaterally. ABD: The abdomen is soft. There is no tenderness. There is no rebound, no guarding : Medrano in place. MUSC/SKEL: Pelvis stable. NEURO: Motor and sensation grossly intact. SKIN: Skin is warm and dry. He is not diaphoretic. PSYCH: Bizarre affect. No suicidal homicidal ideation. Course Course 1809: The patient was evaluated in room B2. A complete history and physical exam was performed Cardiac monitoring: An order was placed for continuous cardiac monitoring. The monitor shows a rate of 100 with sinus rhythm interpreted by ak 1900: Patient lactic acid 4.4. 30 cc/kg of normal saline will be ordered for the patient. Broad-spectrum antibiotics will be ordered for the patient. 2015: Vital signs stable. Imaging shows no traumatic injury. Urine appears to be the source of the patient's infection. White blood cell count 20. [facility]. Administ[facility] Medications Discontinued Medications Sodium Chloride (Nss) 1,000 mls @ 999 mls/hr IV .Q1H1M MAE Stop: 11/06/23 21:00 Last Admin: 11/06/23 20:16 Dose: 999 mls/hr Documented By: Infusion: 11/06/23 20:12 Dose: Infused Documented By: Admin: 11/06/23 19:11 Dose: 999 mls/hr Documented By: JEWEL Sodium Chloride (Nss) 500 mls @ 999 mls/hr IV .Q31M ONE Stop: 11/06/23 19:24 Last Infusion: 11/06/23 20:05 Dose: Infused Documented By: Admin: 11/06/23 19:11 Dose: 999 mls/hr Documented By: JEWEL Cefepime HCl (Maxipime) 2,000 mg in 20 mls @ 5 mls/min IV NOW STA; Protocol Stop: 11/06/23 19:21 Last Admin: 11/06/23 19:46 Dose: 5 mls/min Documented By: JEWEL Sodium Chloride (Nss) 1,000 mls @ 125 mls/hr IV .Q8H [facility] Stop: 12/06/23 20:14 Last Admin: 11/06/23 20:25 Dose: Not Given Documented By: JEWEL Sodium Chloride (Nss) 500 mls @ 999 mls/hr IV .Q31M ONE Stop: 11/06/23 20:45 Last Admin: 11/06/23 20:19 Dose: 999 mls/hr Documented By: JEWEL Critical Care Time Critical Care Time: Yes Total Critical Care Time: 47 I have personally spent greater than 47 minutes of critical care time in the direct management of this patient. This includes bedside care, interpretation of diagnostic studies, and testing, discussion with consultants, patient, and family members, and other required patient management activities. This 47 minutes is in excess of all separately billable procedures. Medical Decision Making Laboratory Data Attestation: I reviewed the patient's lab results. 11/06/23 17:55 11/06/23 17:55 Lab Results 11/06/23 11/06/23 11/06/23 Range/Units 17:55 17:58 18:53 WBC 20.07 H (4.8-10.8) K/ul RBC 4.34 L (4.70-6.10) M/uL Hgb 11.9 L (14.0-18.0) g/dl Hct 37.2 L (42.0-52.0) % MCV 85.7 (80.0-100.0) fL MCH 27.4 (25.0-34.0) pg MCHC 32.0 (32.0-36.0) g/dL RDW Std Deviation 42.8 (36.4-46.3) fL RDW Coeff of Pancho 13.8 (11.5-14.5) % Plt Count 505 H (130-400) K/uL MPV 10.9 (9.4-12.4) fL Immature Gran % (Auto) 2.2 % Neut % (Auto) 69.3 % Lymph % (Auto) 15.2 % [place] % (Auto) 9.6 % Eos % (Auto) 2.3 % Baso % (Auto) 1.4 % Neut # (Auto) 13.88 H (1.40-6.50) K/uL Lymph # (Auto) 3.06 (1.20-3.40) K/uL [place] # (Auto) 1.93 H (0.11-0.59) K/uL Eos # (Auto) 0.46 (0.00-0.50) K/uL Baso # (Auto) 0.29 H (0.00-0.20) K/uL Immature Gran # (Auto) 0.45 H (0.01-0.20) K/uL PT 10.9 (9.0-12.0) Seconds INR 1.0 (0.9-1.1) APTT 24 (21-31) Seconds PTT Ratio 0.9 Sodium 139 (136-145) mmol/L Potassium 4.6 (3.5-5.1) mmol/L Chloride 105 (98-107) mmol/L Carbon Dioxide 22 (21-32) mmol/L Anion Gap 12 H (3-11) BUN 25 H (6-23) mg/dl Creatinine 2.14 H (0.6-1.4) mg/dl Est Cr Clr Drug Dosing 46.8 ml/min Est GFR ( Amer) 41.2 ml/min Est GFR (Non-Af Amer) 35.6 ml/min BUN/Creatinine Ratio 11.7 (10-20) Glucose 132 H (70-99(Fasting)) mg/dl POC Glucose 142 H (70-99) mg/dl Lactate 4.4 H* (0.4-2.0) mmol/L Calcium 9.3 (8.6-10.3) mg/dl Magnesium 1.8 (1.7-2.4) mg/dl Total Bilirubin 0.8 (0.2-1.0) mg/dl AST 15 (13-39) U/L ALT 13 (7-52) U/L Alkaline Phosphatase 93 (34-104) U/L Ammonia (18-72) umol/L Total Creatine Kinase 130 (30-223) U/L Total Protein 7.4 (6.0-8.3) gm/dl Albumin 4.0 (3.4-5.0) gm/dl Globulin 3.4 (2.5-4.0) gm/dl Albumin/Globulin Ratio 1.2 (0.9-2) Procalcitonin 0.03 (0-0.5) ng/ml TSH 2.761 (0.300-4.500) uIu/ml Urine Color Urine Appearance (Clear) Urine pH (4.5-7.5) Ur Specific [place] (1.000-1.030) Urine Protein (Negative) Urine Glucose (UA) (Negative) Urine Ketones (Negative) Urine Blood (Negative) Urine Nitrite (Negative) Urine Bilirubin (Negative) Urine Urobilinogen (Negative) Ur Leukocyte Esterase (Negative) Urine WBC (Auto) (0-5) /hpf Urine RBC (Auto) (0-2) /hpf U Hyaline Cast (Auto) (0-2) /lpf U Epithel Cells (Auto) (0-2) /hpf Urine Bacteria (Auto) (None Seen) Salicylates < 3.0 L (3.0-30) mg/dl Urine Opiates Screen (Neg) Ur Methadone, Qual (Neg) Urine Fentanyl Screen (Neg) Acetaminophen < 3 L (10-30) ug/ml Urine Barbiturates (Neg) Ur Phencyclidine (PCP) (Neg) U Amphetamin/Meth Scrn (Neg) MDMA (Ecstasy) Screen (Neg) U Benzodiazepines Scrn (Neg) Ur Cocaine Metabolite (Neg) U Marijuana (THC) Screen (Neg) Ethyl Alcohol mg/dL (<10.0) mg/dl 11/06/23 11/06/23 11/06/23 Range/Units 19:05 19:16 20:16 WBC (4.8-10.8) K/ul RBC (4.70-6.10) M/uL Hgb (14.0-18.0) g/dl Hct (42.0-52.0) % MCV (80.0-100.0) fL MCH (25.0-34.0) pg MCHC (32.0-36.0) g/dL RDW Std Deviation (36.4-46.3) fL RDW Coeff of Pancho (11.5-14.5) % Plt Count (130-400) K/uL MPV (9.4-12.4) fL Immature Gran % (Auto) % Neut % (Auto) % Lymph % (Auto) % [place] % (Auto) % Eos % (Auto) % Baso % (Auto) % Neut # (Auto) (1.40-6.50) K/uL Lymph # (Auto) (1.20-3.40) K/uL [place] # (Auto) (0.11-0.59) K/uL Eos # (Auto) (0.00-0.50) K/uL Baso # (Auto) (0.00-0.20) K/uL Immature Gran # (Auto) (0.01-0.20) K/uL PT (9.0-12.0) Seconds INR (0.9-1.1) APTT (21-31) Seconds PTT Ratio Sodium (136-145) mmol/L Potassium (3.5-5.1) mmol/L Chloride (98-107) mmol/L Carbon Dioxide (21-32) mmol/L Anion Gap (3-11) BUN (6-23) mg/dl Creatinine (0.6-1.4) mg/dl Est Cr Clr Drug Dosing ml/min Est GFR ( Amer) ml/min Est GFR (Non-Af Amer) ml/min BUN/Creatinine Ratio (10-20) Glucose (70-99(Fasting)) mg/dl POC Glucose (70-99) mg/dl Lactate 1.0 (0.4-2.0) mmol/L Calcium (8.6-10.3) mg/dl Magnesium (1.7-2.4) mg/dl Total Bilirubin (0.2-1.0) mg/dl AST (13-39) U/L ALT (7-52) U/L Alkaline Phosphatase (34-104) U/L Ammonia 14.0 L (18-72) umol/L Total Creatine Kinase (30-223) U/L Total Protein (6.0-8.3) gm/dl Albumin (3.4-5.0) gm/dl Globulin (2.5-4.0) gm/dl Albumin/Globulin Ratio (0.9-2) Procalcitonin (0-0.5) ng/ml TSH (0.300-4.500) uIu/ml Urine Color Dark Yellow Urine Appearance Turbid A (Clear) Urine pH 5.5 (4.5-7.5) Ur Specific [place] 1.030 (1.000-1.030) Urine Protein 2+ H (Negative) Urine Glucose (UA) 3+ H (Negative) Urine Ketones Trace H (Negative) Urine Blood 1+ H (Negative) Urine Nitrite Positive A (Negative) Urine Bilirubin Negative (Negative) Urine Urobilinogen Negative (Negative) Ur Leukocyte Esterase 2+ H (Negative) Urine WBC (Auto) >50 H (0-5) /hpf Urine RBC (Auto) 0-2 (0-2) /hpf U Hyaline Cast (Auto) 3-5 H (0-2) /lpf U Epithel Cells (Auto) 3-5 H (0-2) /hpf Urine Bacteria (Auto) 4+ H (None Seen) Salicylates (3.0-30) mg/dl Urine Opiates Screen Neg (Neg) Ur Methadone, Qual Neg (Neg) Urine Fentanyl Screen Neg (Neg) Acetaminophen (10-30) ug/ml Urine Barbiturates Neg (Neg) Ur Phencyclidine (PCP) Neg (Neg) U Amphetamin/Meth Scrn Neg (Neg) MDMA (Ecstasy) Screen Pos H (Neg) U Benzodiazepines Scrn Pos H (Neg) Ur Cocaine Metabolite Neg (Neg) U Marijuana (THC) Screen Neg (Neg) Ethyl Alcohol mg/dL < 10.0 (<10.0) mg/dl Imaging Data Attestation: I personally reviewed and interpreted this imaging study as follows: My Impression: Chest x-ray negative. Airway clear. No pneumothorax. No consolidation. No cardiomegaly or cephalization.. No free air under the diaphragm. No fractures of the skeletal structures. Radiologist's Impression: Chest X-Ray 11/06/23 18:37 XR chest 1V portable HISTORY: fall COMPARISON: Chest 02/19/2015. FINDINGS: The lungs are clear. Cardiac silhouette is normal in size. No pleural effusions. No pneumothorax. IMPRESSION: No acute process. ACT 112: Negative or not required by law. Electronically signed by: Quinton Cooper M.D. 11/06/2023 7:[address] 11/06/23 18:[address] DOSE: HISTORY: fall TECHNIQUE: Multiaxial CT images of the head were performed without the use of intravenous contrast. Automated exposure control was utilized for this study. A dose lowering technique was utilized adhering to the principles of ALARA. Comparison: Head CT 07/13/2015. Findings: The paranasal sinuses and mastoid air cells are clear. The calvarium and skull base are intact. The ventricles and sulci are within normal limits. There is no mass, hematoma, midline shift, or acute infarct. Impression: No acute intracranial abnormality. ACT 112: Negative or not required by law. Electronically signed by: Quinton Cooper M.D. 11/06/2023 7:49 PM Abdomen/Pelvis CT 11/06/23 18:38 Exam(s): CT ABDOMEN + PELVIS Without Contrast EXAM: CT Abdomen and Pelvis Without Intravenous Contrast CLINICAL HISTORY: Reason for exam: fall. TECHNIQUE: Axial computed tomography images of the abdomen and pelvis without intravenous contrast. CTDI is 25.66 mGy and DLP is 542.27 mGy-cm. Automated exposure control was utilized for the study. A dose lowering technique was utilized adhering to the principles of ALARA. COMPARISON: CT abdomen/pelvis on 10/19/2023 FINDINGS: Lung bases: Mild dependent atelectasis bilaterally. Heart: Coronary artery calcifications. ABDOMEN: Liver: Unremarkable. Gallbladder and bile ducts: Cholelithiasis. No ductal dilation. Pancreas: Unremarkable. No ductal dilation. Spleen: Unremarkable. No splenomegaly. Adrenals: Unremarkable. No mass. Kidneys and ureters: Hydronephrosis or stone. Stomach and bowel: Large amount of stool. No small bowel obstruction. No mucosal thickening. PELVIS: Appendix: No findings to suggest acute appendicitis. Bladder: Medrano catheter in an underdistended bladder limits evaluation. Please correlate with urinalysis to evaluate for cystitis. No stones. Reproductive: Unremarkable as visualized. ABDOMEN and PELVIS: Intraperitoneal space: Unremarkable. No free air. No significant fluid collection. Bones/joints: Screws traversing the left femoral neck. No acute fracture. No dislocation. Soft tissues: Small fat-containing left inguinal hernia. Vasculature: Phleboliths in pelvis. Atherosclerotic changes of the vasculature. No aortic aneurysm. Lymph nodes: Unremarkable. No enlarged lymph nodes. IMPRESSION: 1. Large amount of stool. No small bowel obstruction. 2. Medrano catheter in an underdistended bladder limits evaluation. Please correlate with urinalysis to evaluate for cystitis. 3. Cholelithiasis. 4. No acute traumatic abnormality. Electronically signed by: Richard Lizarraga M.D. 11/06/23 20:[address] 11/06/23 18:[address] DOSE: HISTORY: fall TECHNIQUE: Multiaxial CT images of the cervical spine were performed and reformatted in the sagittal and coronal plane without the use of contrast. A dose lowering technique was utilized adhering to the principles of ALARA. COMPARISON: Cervical spine CT 02/24/2011. FINDINGS: No fractures. No subluxation. Prevertebral soft tissues and the C1-C2 interval are intact. No pneumothorax. IMPRESSION: No fractures within the cervical spine. ACT 112: Negative or not required by law. Electronically signed by: Quinton Cooper M.D. 11/06/2023 7:53 PM ECG Data Attestation: I personally reviewed and interpreted this ECG as follows: Rate (beats per minute): 98 Rhythm: + normal sinus ECG Intervals/blocks: + Normal QRS, + Normal SD and + Normal QT-c ECG ST segments: + Normal ST segments [facility] Narrative 1810: The patient was evaluated in room B2. A complete history and physical exam was performed Cardiac monitoring: An order was placed for continuous cardiac monitoring. The monitor shows a rate of 100 with sinus rhythm interpreted by me 1900: Patient lactic acid 4.4. 30 cc/kg of normal saline will be ordered for the patient. Broad-spectrum antibiotics will be ordered for the patient. 2015: Vital signs stable. Imaging shows no traumatic injury. Urine appears to be the source of the patient's infection. White blood cell count 20. [facility] Impression & Plan Sepsis, Acute UTI Discharge Plan Visit Data Chief Complaint: Fall ED Provider: Gilbert Felder Discharge Problem: Sepsis, Acute UTI Patient Disposition: Admitted As Inpatient Forms Stand Alone Forms: [facility] Prescriptions Prescriptions: No Action pantoprazole 40 mg Tablet,Delayed Release (Dr/Ec) 40 mg PO QAM gabapentin 300 mg Capsule 300 mg PO TID montelukast 10 mg Tablet 10 mg PO QAM buspirone 10 mg tablet 10 mg PO BID cholecalciferol (vitamin D3) [Vitamin D3] 25 mcg (1,000 unit) capsule 25 mcg PO QDL duloxetine 60 mg capsule,delayed release(DR/EC) 60 mg PO QAM Jardiance 10 mg tablet 10 mg PO QAM Hold Instructions: Until further recommendations from your primary care physician/shank faker aspirin 81 mg tablet,delayed release (DR/EC) 81 mg PO QAM duloxetine 30 mg capsule,delayed release(DR/EC) 30 mg PO QAM Trulicity 1.5 mg/0.5 mL pen injector 1.5 mg SUBCUT TU Rx Instructions: take on TUESDAYS bupropion HCl 450 mg tablet extended release 24 hr 450 mg PO QAM clonazepam 0.5 mg tablet 0.5 mg PO BID PRN (Reason: Anxiety) magnesium oxide 400 mg (241.3 mg magnesium) tablet 400 mg PO QAM oxybutynin chloride 10 mg tablet extended release 24hr 10 mg PO QAM atorvastatin 40 mg tablet 40 mg PO QAM clopidogrel 75 mg tablet 75 mg PO DAILYBL ramelteon 8 mg tablet 8 mg PO HS PRN (Reason: Sleep) metoprolol succinate 25 mg tablet extended release 24 hr 25 mg PO BID metformin 500 mg tablet extended release 24 hr 500 mg PO BID Hold Instructions: Until further recommendations from your primary care physician/shank faker amlodipine-benazepril 5-20 mg capsule 1 cap PO DAILY Hold Instructions: Hold until further recommendations by your shank faker/Primary care physician. lidocaine HCl 2 % Jelly In Applicator 0.5 ml EXT BID PRN (Reason: catheter Pain) Qty: 125 0RF amlodipine 5 mg tablet 5 mg PO DAILY Qty: 30 0RF Referrals Referrals: Ruben Gordillo MD [Primary Care Provider] - Discharge Problem: Sepsis Qualifiers: Sepsis type: sepsis due to unspecified organism Sepsis acute organ dysfunction status: without acute organ dysfunction Qualified Code(s): A41.9 - Sepsis, unspecified organism
[2023-11-06 21:43] LABS: HCO3 VBG 24 mmol/L; Oxygen Saturation VBG < 60.0 %; PCO2 VBG 43 mmHg (38-50); PO2 VBG 29 mmHg; pH VBG 7.35 (7.36-7.41)
[2023-11-06] MEDS: MAGNESIUM SULFATE / D5W 1 GM/100 ML BAG IV ONE (21:46)
[2023-11-06] MEDS: LACTATED RINGER'S 1,000 ML IV ONE (21:46)
--- NOTE | 2023-11-06 22:50 | History & Physical Report ---
Date of Service November 06, 2023 Assessment & Plan (1) Sepsis: Plan: Severe sepsis SIRS plus ARF on CKD plus lactic acidosis secondary to complicated UTI, obstipation symptoms predisposing to urinary retention History of bilateral hydronephrosis/obstructive uropathy currently with indwelling Medrano catheter chronic systolic heart failure (EF 45%, TTE 2021), patient on the dry side hx CAD status post stent hyperlipidemia on statin Rx DM2 on oral medications, suboptimal control as of recent hemoglobin A1c of 7.9 last month chronic anemia, hemoglobin better than baseline following recent confinement anxiety/mood disorder, patient somewhat apathetic during exam Recurrent falls, ambulatory dysfunction Impacted cerumen, AD past tobacco abuse Medical telemetry CS, Cefepime Monitor creatinine response/lactic acid response to IVF Appropriate to hold home BP meds for now (beta-vera and amlodipine) Consider discontinuing amlodipine on discharge if with persistent hypotension. Bowel regimen Urology consult Re: Follow-up eval for obstructive uropathy Basal bolus insulin, ISS BG goal 1 10-1 40, carb count coverage PT OT eval Ceruminolytic for impacted cerumen right ear DVT prophylaxis with heparin subcu Full code Text document was generated using babberly voice recognition software. It may contain grammatical or spelling errors. Kindly contact undersigned for clarification of any documentation item in question. History of Present Illness Chief Complaint: Weakness, fall Primary Care Provider: Ruben Gordillo MD History obtained from patient and records. Medical history significant for chronic systolic heart failure (EF 45%, TTE 2021), CAD status post stent, hypertension, hyperlipidemia, CRI (baseline creatinine 1.8), DM2 on oral medications, migraine, chronic anemia (base hemoglobin of 9-10), anxiety/mood disorder, past tobacco abuse. Recent confinement October 19 to 2023 for complicated UTI, ARF in the setting of obstructive uropathy with bilateral hydronephrosis. Serum creatinine at discharge was 1.8. Patient discharged with Medrano catheter for urinary retention. Outpatient urology follow-up recommended. Patient refused rehab placement as per discharge note. Patient with recurrent falls at home since leaving the hospital. No syncope, no chest pain, no SOB. Intermittent right-sided headache/ear pain which is nothing new as per patient. No discharge. Right ear feels like underwater. Patient noted to be increasingly weak the last couple of days. Was found on the bathroom floor. No abdominal or flank pain. Denies head trauma. Last BM was 4 days ago which is unusual for him. SBP 90s upon arrival at the ER. IV cefepime administered at the ER. Medical History as above Surgical History : Dental surgery, knee surgery Family History : Prostate cancer, DM, hypertension Personal/Social history : Past tobacco abuse, no EtOH intake, disabled Allergies Allergy/AdvReac Type Severity Reaction Status Date / Time adhesive Allergy Intermediate Contact Verified 11/06/23 21:08 dermatitis latex Allergy Mild RASH Verified 11/06/23 21:08 tramadol Allergy Unknown n/v Verified 11/06/23 21:08 Home Medications Medication Instructions Recorded Confirmed Type gabapentin 300 mg capsule 300 mg PO TID 06/16/22 11/06/23 History montelukast 10 mg tablet 10 mg PO QAM 06/16/22 11/06/23 History pantoprazole 40 mg tablet,delayed 40 mg PO QAM 06/16/22 11/06/23 History release aspirin 81 mg tablet,delayed 81 mg PO QAM 01/31/23 11/06/23 History release buspirone 10 mg tablet 10 mg PO BID 01/31/23 11/06/23 History cholecalciferol (vitamin D3) 25 25 mcg PO QDL 01/31/23 11/06/23 History mcg (1,000 unit) capsule (Vitamin D3) duloxetine 60 mg capsule,delayed 60 mg PO QAM 01/31/23 11/06/23 History release empagliflozin 10 mg tablet 10 mg PO QAM 01/31/23 11/06/23 History (Jardiance) amlodipine 5 mg-benazepril 20 mg 1 cap PO DAILY 10/19/23 11/06/23 History capsule atorvastatin 40 mg tablet 40 mg PO QAM 10/19/23 11/06/23 History bupropion HCl 450 mg 24 hr tablet, 450 mg PO QAM 10/19/23 11/06/23 History extended release clonazepam 0.5 mg tablet 0.5 mg PO BID PRN Anxiety 10/19/23 11/06/23 History clopidogrel 75 mg tablet 75 mg PO DAILYBL 10/19/23 11/06/23 History dulaglutide 1.5 mg/0.5 mL 1.5 mg subcut TU 10/19/23 11/06/23 History subcutaneous pen injector (Trulicity) duloxetine 30 mg capsule,delayed 30 mg PO QAM 10/19/23 11/06/23 History release magnesium oxide 400 mg (241.3 mg 400 mg PO QAM 10/19/23 11/06/23 History magnesium) tablet metformin 500 mg tablet,extended 500 mg PO BID 10/19/23 11/06/23 History release 24 hr metoprolol succinate 25 mg 25 mg PO BID 10/19/23 11/06/23 History tablet,extended release 24 hr oxybutynin chloride 10 mg 10 mg PO QAM 10/19/23 11/06/23 History tablet,extended release 24 hr ramelteon 8 mg tablet 8 mg PO HS PRN Sleep 10/19/23 11/06/23 History amlodipine 5 mg tablet 5 mg PO DAILY #30 tabs 10/26/23 11/06/23 Rx lidocaine HCl 2 % mucosal jelly in 0.5 ml EXT BID PRN catheter Pain 10/26/23 11/06/23 Rx applicator #125 mL Past Med/Surg History Problem List (Updated 11/07/23 @ 00:58 by Alina Pettit) Acute UTI (Acute) Sepsis (Acute) Orthostatic hypotension dysautonomic syndrome Gross hematuria Chronic back pain greater than 3 months duration Leukocytosis (Acute) Acute urinary retention (Acute) SAMANTHA (acute kidney injury) (Acute) SAMANTHA (acute kidney injury) Hydronephrosis Urinary retention Lumbar spinal stenosis Metabolic acidosis Hyperglycemia Sinus tachycardia Dehydration (Acute) Nausea vomiting and diarrhea (Acute) Acute hyperglycemia (Acute) Subcapital fracture of left femur Closed left femoral fracture Personal history of diabetic foot ulcer Type 2 diabetes mellitus with diabetic neuropathy, unspecified CAD (coronary artery disease) Mood disorder History of percutaneous coronary intervention S/P cardiac catheterization Bipolar 1 disorder, depressed Systolic congestive heart failure Ischemic cardiomyopathy Hyperlipidemia Hypertension Type 2 diabetes mellitus Medical History Noncompliance Central retinal artery occlusion, left eye Diabetic peripheral neuropathy Surgical History S/P arthroscopic knee surgery History of dental surgery Family History Other Cancer Diabetes Hypertension Social History Smoking Status: Never smoker Tobacco Type: Smokeless Tobacco (Dip or Chew) Second Hand Exposure: No; Do You Dip or Chew Tobacco: Yes; Hx Alcohol Use: Yes Alcohol type: beer Hx Substance Use: No Preferred Language: Serbian Communication Ability: Effective 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 Beliefs That Will Affect Care: None Current Living Situation: Family Current Living Situation Comment: Lives with parents Other Information That Helps Us Care for You: No Feels Safe at Home: Yes Safety Concerns: Feels Safe At This Time Assistive Devices: Cane, Glasses and Wheelchair Review of Systems Review of Systems: As per HPI, all other systems reviewed and negative Physical Exam Physical Exam: GENERAL: apathetic, looks older than stated age, no respiratory distress SKIN: Pallor, warm HEENT: Pale palpebral conjunctivae, no ptosis, dry buccal mucosa AD impacted cerumen, TM not fully visualized , retained cerumen NECK : Supple, no tenderness CHEST : CTA, no tenderness HEART : RRR, no obvious murmurs ABDOMEN: Some distention, nontender EXTREMITIES : No LE swelling/tenderness, no other conspicuous deformities noted NEUROLOGIC : Coherent, no facial asymmetry, no other gross focality Results & Data Results & Data Vital Signs (Past 12 Hours) Vital Signs Temp Pulse Pulse Resp BP BP Pulse Ox 11/06/23 22:36 102 H 21 99 11/06/23 22:15 102 H 16 11/06/23 22:00 101 H 13 97 11/06/23 21:48 101 H 15 98 11/06/23 21:33 100 H 17 11/06/23 21:32 101 H 11/06/23 21:24 100 H 17 11/06/23 21:00 99 H 10 L 11/06/23 21:00 154/97 H 11/06/23 20:54 99 H 15 94 11/06/23 20:33 99 H 20 97 11/06/23 20:21 98 H 19 95 11/06/23 20:03 99 H 22 98 11/06/23 19:51 99 H 14 98 11/06/23 19:15 97 H 21 98 11/06/23 19:12 98 H 18 98 11/06/23 18:45 98 H 21 96 11/06/23 18:33 98 H 22 97 11/06/23 18:21 98 H 21 97 11/06/23 18:00 98 H 23 11/06/23 17:45 100 H 20 11/06/23 17:45 36.6 C 101 H 18 97/78 L 98 11/06/23 17:45 36.6 C 101 H 18 97/78 L 98 11/06/23 17:35 102 H O2 Del Method 11/06/23 22:36 Room Air 11/06/23 22:15 11/06/23 22:00 11/06/23 21:48 11/06/23 21:33 11/06/23 21:32 11/06/23 21:24 11/06/23 21:00 11/06/23 21:00 11/06/23 20:54 11/06/23 20:33 11/06/23 20:21 11/06/23 20:03 11/06/23 19:51 11/06/23 19:15 11/06/23 19:12 11/06/23 18:45 11/06/23 18:33 11/06/23 18:21 11/06/23 18:00 11/06/23 17:45 11/06/23 17:45 Room Air 11/06/23 17:45 Room Air 11/06/23 17:35 Laboratory Results Laboratory Results WBC 20.07 K/ul (4.8-10.8) H 11/06/23 17:55 RBC 4.34 M/uL (4.70-6.10) L 11/06/23 17:55 Hgb 11.9 g/dl (14.0-18.0) L 11/06/23 17:55 Hct 37.2 % (42.0-52.0) L 11/06/23 17:55 MCV 85.7 fL (80.0-100.0) 11/06/23 17:55 MCH 27.4 pg (25.0-34.0) 11/06/23 17:55 MCHC 32.0 g/dL (32.0-36.0) 11/06/23 17:55 RDW Std Deviation 42.8 fL (36.4-46.3) 11/06/23 17:55 RDW Coeff of Pancho 13.8 % (11.5-14.5) 11/06/23 17:55 Plt Count 505 K/uL (130-400) H 11/06/23 17:55 MPV 10.9 fL (9.4-12.4) 11/06/23 17:55 Immature Gran % (Auto) 2.2 % 11/06/23 17:55 Neut % (Auto) 69.3 % 11/06/23 17:55 Lymph % (Auto) 15.2 % 11/06/23 17:55 [place] % (Auto) 9.6 % 11/06/23 17:55 Eos % (Auto) 2.3 % 11/06/23 17:55 Baso % (Auto) 1.4 % 11/06/23 17:55 Neut # (Auto) 13.88 K/uL (1.40-6.50) H 11/06/23 17:55 Lymph # (Auto) 3.06 K/uL (1.20-3.40) 11/06/23 17:55 [place] # (Auto) 1.93 K/uL (0.11-0.59) H 11/06/23 17:55 Eos # (Auto) 0.46 K/uL (0.00-0.50) 11/06/23 17:55 Baso # (Auto) 0.29 K/uL (0.00-0.20) H 11/06/23 17:55 Immature Gran # (Auto) 0.45 K/uL (0.01-0.20) H 11/06/23 17:55 PT 10.9 Seconds (9.0-12.0) 11/06/23 17:55 INR 1.0 (0.9-1.1) 11/06/23 17:55 APTT 24 Seconds (21-31) 11/06/23 17:55 PTT Ratio 0.9 11/06/23 17:55 VBG pH 7.35 (7.36-7.41) L 11/06/23 21:21 VBG pCO2 43 mmHg (38-50) 11/06/23 21:21 VBG pO2 29 mmHg 11/06/23 21:21 VBG HCO3 24 mmol/L 11/06/23 21:21 VBG O2 Saturation < 60.0 % 11/06/23 21:21 VBG Base Excess -2.0 mEq/L 11/06/23 21:21 Sodium 139 mmol/L (136-145) 11/06/23 17:55 Potassium 4.6 mmol/L (3.5-5.1) 11/06/23 17:55 Chloride 105 mmol/L (98-107) 11/06/23 17:55 Carbon Dioxide 22 mmol/L (21-32) 11/06/23 17:55 Anion Gap 12 (3-11) H 11/06/23 17:55 BUN 25 mg/dl (6-23) H 11/06/23 17:55 Creatinine 2.14 mg/dl (0.6-1.4) H 11/06/23 17:55 Est Cr Clr Drug Dosing 46.8 ml/min 11/06/23 17:55 Est GFR ( Amer) 41.2 ml/min 11/06/23 17:55 Est GFR (Non-Af Amer) 35.6 ml/min 11/06/23 17:55 BUN/Creatinine Ratio 11.7 (10-20) 11/06/23 17:55 Glucose 132 mg/dl (70-99(Fasting)) H 11/06/23 17:55 POC Glucose 142 mg/dl (70-99) H 11/06/23 18:53 Lactate 1.0 mmol/L (0.4-2.0) 11/06/23 20:16 Calcium 9.3 mg/dl (8.6-10.3) 11/06/23 17:55 Magnesium 1.8 mg/dl (1.7-2.4) 11/06/23 17:55 Total Bilirubin 0.8 mg/dl (0.2-1.0) 11/06/23 17:55 AST 15 U/L (13-39) 11/06/23 17:55 ALT 13 U/L (7-52) 11/06/23 17:55 Alkaline Phosphatase 93 U/L (34-104) 11/06/23 17:55 Ammonia 14.0 umol/L (18-72) L 11/06/23 19:16 Total Creatine Kinase 130 U/L (30-223) 11/06/23 17:55 Total Protein 7.4 gm/dl (6.0-8.3) 11/06/23 17:55 Albumin 4.0 gm/dl (3.4-5.0) 11/06/23 17:55 Globulin 3.4 gm/dl (2.5-4.0) 11/06/23 17:55 Albumin/Globulin Ratio 1.2 (0.9-2) 11/06/23 17:55 Procalcitonin 0.03 ng/ml (0-0.5) 11/06/23 17:55 TSH 2.761 uIu/ml (0.300-4.500) 11/06/23 17:55 Urine Color Dark Yellow 11/06/23 19:05 Urine Appearance Turbid (Clear) A 11/06/23 19:05 Urine pH 5.5 (4.5-7.5) 11/06/23 19:05 Ur Specific [place] 1.030 (1.000-1.030) 11/06/23 19:05 Urine Protein 2+ (Negative) H 11/06/23 19:05 Urine Glucose (UA) 3+ (Negative) H 11/06/23 19:05 Urine Ketones Trace (Negative) H 11/06/23 19:05 Urine Blood 1+ (Negative) H 11/06/23 19:05 Urine Nitrite Positive (Negative) A 11/06/23 19:05 Urine Bilirubin Negative (Negative) 11/06/23 19:05 Urine Urobilinogen Negative (Negative) 11/06/23 19:05 Ur Leukocyte Esterase 2+ (Negative) H 11/06/23 19:05 Urine WBC (Auto) >50 /hpf (0-5) H 11/06/23 19:05 Urine RBC (Auto) 0-2 /hpf (0-2) 11/06/23 19:05 U Hyaline Cast (Auto) 3-5 /lpf (0-2) H 11/06/23 19:05 U Epithel Cells (Auto) 3-5 /hpf (0-2) H 11/06/23 19:05 Urine Bacteria (Auto) 4+ (None Seen) H 11/06/23 19:05 Salicylates < 3.0 mg/dl (3.0-30) L 11/06/23 17:55 Urine Opiates Screen Neg (Neg) 11/06/23 19:05 Ur Methadone, Qual Neg (Neg) 11/06/23 19:05 Urine Fentanyl Screen Neg (Neg) 11/06/23 19:05 Acetaminophen < 3 ug/ml (10-30) L 11/06/23 17:55 Urine Barbiturates Neg (Neg) 11/06/23 19:05 Ur Phencyclidine (PCP) Neg (Neg) 11/06/23 19:05 U Amphetamin/Meth Scrn Neg (Neg) 11/06/23 19:05 MDMA (Ecstasy) Screen Pos (Neg) H 11/06/23 19:05 U Benzodiazepines Scrn Pos (Neg) H 11/06/23 19:05 Ur Cocaine Metabolite Neg (Neg) 11/06/23 19:05 U Marijuana (THC) Screen Neg (Neg) 11/06/23 19:05 Ethyl Alcohol mg/dL < 10.0 mg/dl (<10.0) 11/06/23 19:16 Impressions Chest X-Ray 11/06/23 18:37 XR chest 1V portable HISTORY: fall COMPARISON: Chest 02/19/2015. FINDINGS: The lungs are clear. Cardiac silhouette is normal in size. No pleural effusions. No pneumothorax. IMPRESSION: No acute process. ACT 112: Negative or not required by law. Electronically signed by: Quinton Cooper M.D. 11/06/2023 7:[address] 11/06/23 18:[address] DOSE: HISTORY: fall TECHNIQUE: Multiaxial CT images of the head were performed without the use of intravenous contrast. Automated exposure control was utilized for this study. A dose lowering technique was utilized adhering to the principles of ALARA. Comparison: Head CT 07/13/2015. Findings: The paranasal sinuses and mastoid air cells are clear. The calvarium and skull base are intact. The ventricles and sulci are within normal limits. There is no mass, hematoma, midline shift, or acute infarct. Impression: No acute intracranial abnormality. ACT 112: Negative or not required by law. Electronically signed by: Quinton Cooper M.D. 11/06/2023 7:49 PM Abdomen/Pelvis CT 11/06/23 18:38 Exam(s): CT ABDOMEN + PELVIS Without Contrast EXAM: CT Abdomen and Pelvis Without Intravenous Contrast CLINICAL HISTORY: Reason for exam: fall. TECHNIQUE: Axial computed tomography images of the abdomen and pelvis without intravenous contrast. CTDI is 25.66 mGy and DLP is 542.27 mGy-cm. Automated exposure control was utilized for the study. A dose lowering technique was utilized adhering to the principles of ALARA. COMPARISON: CT abdomen/pelvis on 10/19/2023 FINDINGS: Lung bases: Mild dependent atelectasis bilaterally. Heart: Coronary artery calcifications. ABDOMEN: Liver: Unremarkable. Gallbladder and bile ducts: Cholelithiasis. No ductal dilation. Pancreas: Unremarkable. No ductal dilation. Spleen: Unremarkable. No splenomegaly. Adrenals: Unremarkable. No mass. Kidneys and ureters: Hydronephrosis or stone. Stomach and bowel: Large amount of stool. No small bowel obstruction. No mucosal thickening. PELVIS: Appendix: No findings to suggest acute appendicitis. Bladder: Medrano catheter in an underdistended bladder limits evaluation. Please correlate with urinalysis to evaluate for cystitis. No stones. Reproductive: Unremarkable as visualized. ABDOMEN and PELVIS: Intraperitoneal space: Unremarkable. No free air. No significant fluid collection. Bones/joints: Screws traversing the left femoral neck. No acute fracture. No dislocation. Soft tissues: Small fat-containing left inguinal hernia. Vasculature: Phleboliths in pelvis. Atherosclerotic changes of the vasculature. No aortic aneurysm. Lymph nodes: Unremarkable. No enlarged lymph nodes. IMPRESSION: 1. Large amount of stool. No small bowel obstruction. 2. Medrano catheter in an underdistended bladder limits evaluation. Please correlate with urinalysis to evaluate for cystitis. 3. Cholelithiasis. 4. No acute traumatic abnormality. Electronically signed by: Richard Lizarraga M.D. 11/06/23 20:[address] 11/06/23 18:[address] DOSE: HISTORY: fall TECHNIQUE: Multiaxial CT images of the cervical spine were performed and reformatted in the sagittal and coronal plane without the use of contrast. A dose lowering technique was utilized adhering to the principles of ALARA. COMPARISON: Cervical spine CT 02/24/2011. FINDINGS: No fractures. No subluxation. Prevertebral soft tissues and the C1-C2 interval are intact. No pneumothorax. IMPRESSION: No fractures within the cervical spine. ACT 112: Negative or not required by law. Electronically signed by: Quinton Cooper M.D. 11/06/2023 7:53 PM Diagnostic Findings EKG as per my interpretation : Rate 100, NSR, LAD, LAFB, septal infarct (1) Sepsis Sepsis acute organ dysfunction status: without acute organ dysfunction Sepsis type: sepsis due to unspecified organism Qualified Code(s): A41.9 - Sepsis, unspecified organism
--- OUTSIDE RECORDS SUMMARY | 2023-11-06 23:02 | External Medical Summary | Summary of Care ---
Author Name Unknown Organization [facility] Address [address] [place] [address] Phone [phone] Care Team Providers Care Dental Treatment Coordinator Name Role Phone Ruben Gordillo MD Primary Care Provider Reason for Visit * Reason Onset Date Comments Hospital Follow-Up 10/27/2023 Encounter Details Date Type Department Care Team ([facility] st Contact Info) Description 10/27/2023 Telephone General Internal Medicine [facility] [place] [address] [place] [address] Ruben Gordillo MD [address], [place] [id number] Hospital Follow-Up Allergies Active Allergy Reactions Criticality Noted Date Comments Adhesive Tape 02/09/2023 Latex Rash 02/05/2022 Tramadol Nausea/vomiting 12/02/2014 documented as of this encounter (statuses as of 10/27/2023) Medications Medication Sig Dispensed Refills Start Date End Date Status GLUCOMETER ELITE CLASSIC KITIndications:DM type 2, not at goal (HCC) check blood sugar every morning when you get up 1 Kit 3 07/31/2011 Active FreeStyle Sadiq 14 Day [place] Device Use as directed . 1 Each 1 02/13/2022 Active FreeStyle Sadiq 14 Day Sensor Use as directed . 1 Each 11 02/13/2022 Active Fiber/D3 Adult Gummies 2.5-500 GM-UNIT Oral Tablet Chewable (Inulin-Cholecalcife rol) Take by mouth. Active Metoprolol Succinate ER 25 MG Oral Tablet Extended Release 24 Hour (toPROL XL) Take 1 Tablet by mouth in the morning and 1 Tablet before bedtime. 180 Tablet 3 01/11/2023 Active Montelukast Sodium 10 MG Oral Tablet (Singulair) TAKE ONE TABLET BY MOUTH IN THE MORNING 90 Tablet 3 02/09/2023 Active Nystatin 817217 UNIT/GM External Cream Apply 1 g topically [...] Patient taking differently: 500 mg Oral BID (08,1999), Reported on 06/29/2023 amLODIPine Besy-Benazepril HCl 5-20 [...] TABLET BY MOUTH EVERY MORNING 90 Tablet 09/13/2023 Active Riboflavin 400 MG Oral Tablet [...] TWICE DAILY NEEDED FOR ANXIETY 60 Tablet 09/28/2023 Active busPIRone HCl 10 MG Oral [...] as of this encounter (statuses as of 10/27/2023) Active Problems Problem Noted Date Diagnosed Date History of hip surgery 02/09/2023 Non healing left heel wound 11/10/2022 S/P angioplasty with stent 06/23/2022 Coronary artery disease of n ative artery of [place] heart with stable angina pectoris 06/23/2022 Ischemic [...] as of this encounter (statuses as of 10/27/2023) Resolved Problems Problem Noted Date Diagnosed Date [...] as of this encounter (statuses as of 10/27/2023) Immunizations Name Administration Dates Next Due Hepatitis [...] Miscellaneous Notes * Telephone Encounter - Marzena Perera RN - 10/27/2023 3:16 PM EDT Attempted to call pt. Unable to leave message. Lab orders placed. * Telephone Encounter - Jerrell Galindo RN - 10/27/2023 12:52 PM EDT Patient discharged to home 10/26/23 from [facility]. Nephrology consulted for SAMANTHA and Dr Rubalcava recommends: hospital d/c visit w/ any physician Alphonso Cardozo in 2-3 wks w/ BMP, ACR, prot/creat, UACM, albumin, PTH, 25 OHD, phos, CBC/diff, trnasferrin sat to be ordered by nephro nurse. BMP [place] [facility] [place] > pls have neph nurse f/u on when that voiding trial appt isand outcome -if pt has home BP cuff, he should bring to NEPHRO f/u visit for cuff check; prefer nephro over PCPcuff check for consistency. Please assist with these recommendations. Thank you documented in this encounter Plan of Treatment Upcoming Encounters Date Type Department Care Team (Late st Contact Info) Description 10/28/2023 6:10 PM EDT Pharmacy Pharmacy, [address] [address] [facility] [address] [place] [address] 11/02/2023 11:20 AM EDT Office Visit [facility] [address] [facility] [phone] Ruben Gordillo MD [address] [place] [address] 11/25/2023 8:30 AM EDT Telemedicine Psychiatry [facility] [place] [address] [place] [phone] Mauri Macias, [address] [facility] [place] [address] 12/02/2023 3:20 PM EDT Office Visit [facility] [address] [facility] [address] Vanessa Eid PA-C [address] [facility] [place] [address] 12/06/2023 1:20 PM EDT Office Visit [facility] [address] [phone] Ruben Gordillo MD [address] [facility] [place] [phone] Scheduled Orders Name Type Priority Associated Diagnoses Orde r Schedule BASIC METABOLIC PANEL Lab Routine Acute kidney injury (HCC) Expected: 11/08/2023 (Approximate), Expires: 10/26/2024 ALBUMIN / CREATININE RATIO, URINE Lab Routine Acute kidney injury (HCC) Expected: 11/08/2023 (Approximate), Expires: 10/26/2024 PROTEIN/ CREATININE RATIO, URINE Lab Routine Acute kidney injury (HCC) Expected: 11/08/2023 (Approximate), Expires: 10/26/2024 URINALYSIS WITH MICROSCOPIC EXAM Lab Routine Acute kidney injury (HCC) Expected: 11/08/2023 (Approximate), Expires: 10/26/2024 ALBUMIN Lab Routine Acute kidney injury (HCC) Expected: 11/08/2023 (Approximate), Expires: 10/26/2024 PTH Lab Routine Acute kidney injury (HCC) Expected: 11/08/2023 (Approximate), Expires: 10/26/2024 25-HYDROXY VITAMIN D Lab Routine Acute kidney injury ([facility]) Vitamin D deficiency Expected: 11/08/2023 (Approximate), Expires: 10/26/2024 PHOSPHORUS Lab Routine Acute kidney injury (HCC) Expected: 11/08/2023 (Approximate), Expires: 10/26/2024 CBC WITH WBC DIFFERENTIAL Lab Routine Acute kidney injury ([facility]) Expected: 11/08/2023 (Approximate), Expires: 10/26/2024 IRON SCREEN, INCLUDING TIBC Lab Routine Acute kidney injury (HCC) Expected: 11/08/2023 (Approximate), Expires: 10/26/2024 BASIC METABOLIC PANEL Lab Routine Acute kidney injury ([facility]) Expected: 11/03/2023 (Approximate), Expires: 10/26/2024 Health Maintenance Due Date Last Done Comments [...] 01/11/2013, Additional history exists Albumin/Creatinine Ratio 01/12/2024 08/ 023, 11/30/2014, 01/11/2013, Additional history exists Influenza [...] as of this encounter Visit Diagnoses Diagnosis Acute kidney injury (HCC)- Primary Acute kidney failure, unspecified Vitamin D deficiency Unspecified vitamin D deficiency documented in this encounter Care Teams Dental Treatment Coordinator Relationship Specialty Start Date End Date Ruben Gordillo MD [address] [place] [address] PCP - General Internal Medicine 02/05/22 documented as of this encounter
--- OUTSIDE RECORDS SUMMARY | 2023-11-06 23:02 | External Medical Summary | Summary of Care ---
Author Name Unknown Organization [facility] Address [address] [place] [address] Phone [phone] Care Team Providers Care Event Marketing Specialist Name Role Phone Ruben Gordillo MD Primary Care Provider Reason for Visit * Reason Onset Date Comments Test Results 10/11/2023 MRI L SPINE WO C ONTRAST Encounter Details Date Type Department Care Team (Late st Contact Info) Description 10/11/2023 Telephone Neurology [facility] [address] [place] [address] Vanessa Eid PA-C [address] [place] [address] Test Results (MRI L SPINE WO CONTRAST) Allergies Active Allergy Reactions Criticality Noted Date Comments Adhesive Tape 02/09/2023 Latex Rash 02/05/2022 Tramadol Nausea/vomiting 12/02/2014 documented as of this encounter (statuses as of 10/28/2023) Medications Medication Sig Dispensed Refills Start Date End Date Status GLUCOMETER ELITE CLASSIC KITIndications:DM type 2, not at goal (HCC) check blood sugar every morning when you get up 1 Kit 3 2 Active FreeStyle Sadiq 14 Day [place] Device Use as directed . 1 Each 1 2 Active FreeStyle Sadiq 14 Day Sensor Use as directed . 1 Each 11 2 Active Fiber/D3 Adult Gummies 2.5-500 GM-UNIT Oral Tablet Chewable (Inulin-Cholecalcif venessa) Take by mouth. Active Metoprolol Succinate ER 25 MG Oral Tablet Extended Release 24 Hour (toPROL XL) Take 1 Tablet by mouth in the morning and 1 Tablet before bedtime. 180 Tablet 3 3 Active Montelukast Sodium 10 MG Oral Tablet (Singulair) TAKE ONE TABLET BY MOUTH IN THE MORNING 90 Tablet 3 3 Active Nystatin 838573 UNIT/GM External Cream Apply 1 g topically [...] TABLET BY MOUTH EVERY MORNING 90 Tablet 4 Active Riboflavin 400 MG Oral Tablet [...] TWICE DAILY NEEDED FOR ANXIETY 60 Tablet 4 Active busPIRone HCl 10 MG Oral Tablet (Buspar) TAKE ONE TABLET BY MOUTH IN THE MORNING AND ONE BEFORE BEDTIME 60 Tablet 5 4 Active Gabapentin 300 MG Oral Capsule (Neurontin) Take 1 Capsule by mouth in the morning and 1 Capsule at noon and 1 Capsule before bedtime. 270 Capsule 1 3 10/14/19 24 Discontinued Aspirin Low Dose 81 MG Oral Tablet Delayed Release (aspirin enteric coated)Indications: DM type 2, not at goal (HCC),HTN, goal below 130/80 TAKE 1 TABLET BY MOUTH EVERY MORNING 90 Tablet 1 3 10/19/19 24 Discontinued documented as of this encounter (statuses as of 10/28/2023) Active Problems Problem Noted Date Diagnosed Date History of hip surgery 02/09/2023 Non healing left heel wound 11/10/2022 S/P angioplasty with stent 06/23/2022 Coronary artery disease of n ative artery of [place] heart with stable angina pectoris 06/23/2022 Ischemic [...] as of this encounter (statuses as of 10/28/2023) Resolved Problems Problem Noted Date Diagnosed Date [...] as of this encounter (statuses as of 10/28/2023) Immunizations Name Administration Dates Next Due Hepatitis [...] encounter Miscellaneous Notes * Telephone Encounter - Rosalee Dowell LPN - 10/28/2023 3:41 PM EDT Called and spoke with patient and he states he is aware of MRI results and just got out of the hospital for a distended bladder. Patient states he is seeing Dr. Gordillo for a hospital follow up on 11/02/2023 at 11:20. Patient states that if Dr. Gordillo needs to reach him in the meantime he should be able to answer the phone at any time. * Telephone Encounter - Aliza Weber LPN - 10/22/2023 3:40 PM EDT Attempted to call patient to relay test results. No answer, unable to leave a message. Mailbox is full * Telephone Encounter - Malgorzata Damon OSA [...] or indeterminate finding on Shashi Moctezuma . ([id number]) and asks that you review the following [...] Thank you, NICOLAS Burgos Client Service Rep [facility] [place] documented in this encounter Plan of Treatment Upcoming Encounters Date Type Department Care Team (Late st Contact Info) Description 10/28/2023 6:10 PM EDT Pharmacy Pharmacy, [place] [address] [place] [facility] [place] [address] [place] [facility] [address] [place] [facility] [place] [address] Type 2 diabetes mellitus with hemoglobin A1c goal of less than 7.0% ([facility])* 11/02/2023 11:20 AM EDT Office Visit Family [facility], [place] [address] [place] [facility] [place] [phone] Ruben Gordillo MD [address] [place] [address] 11/25/2023 8:30 AM EDT Telemedicine Psychiatry Yonathan Wallace [place] [address] [place] [phone] ColleenMauri, DO [address] [place] [address] 11/25/2023 6:10 PM EDT Pharmacy Pharmacy, [place] [address] [place] [address] [facility] [address] [place] [address] 12/02/2023 3:20 PM EDT Office Visit Neurology [facility] [address] [place] [address] Vanessa Eid PA-C [address] [facility] [place] [address] 12/06/2023 1:20 PM EDT Office Visit Family Practice, [place] [address] [place] [phone] Ruben Gordillo MD [address] [place] [address] Health Maintenance Due Date Last Done Comments [...] filedocumented as of this encounter Care Teams Event Marketing Specialist Relationship Specialty Start Date End Date Ruben Gordillo MD [address] [place] [address] PCP - General Internal Medicine 02/05/22 documented as of this encounter
--- OUTSIDE RECORDS SUMMARY | 2023-11-06 23:02 | External Medical Summary | Summary of Care ---
Author Name Unknown Organization [facility] Address [address] [place] [address] Phone [phone] Care Team Providers Care Lead Massage Therapist Name Role Phone Ruben Gordillo MD Primary Care Provider [phone] Reason for Visit * Reason Onset Date Comments Test Results 10/11/2023 MRI L SPINE WO C ONTRAST Encounter Details Date Type Department Care Team (Late st Contact Info) Description 10/11/2023 Telephone Neurology [facility] [address] [place] [address] Vanessa Eid PA-C [address] [place] [address] Test Results (MRI L SPINE WO CONTRAST) [...] 3 2 Active FreeStyle Sadiq 14 Day [place] Device Use as directed . 1 Each [...] MORNING 90 Tablet 3 3 Active Nystatin 884609 UNIT/GM External Cream Apply 1 g topically [...] artery disease of n ative artery of [place] heart with stable angina pectoris 06/23/2022 Ischemic [...] encounter Miscellaneous Notes * Telephone Encounter - Aliza Weber LPN [...] or indeterminate finding on Shashi Moctezuma Jr. ([id number]) and asks that you review the following [...] Thank you, NICOLAS Burgos Client Service Rep [facility] documented in this encounter Plan of Treatment Upcoming Encounters Date Type Department Care Team (Late st Contact Info) Description 10/28/2023 6:10 PM EDT Pharmacy Pharmacy, [address] [address] [facility] [address] [place] [address] Type 2 diabetes mellitus with hemoglobin A1c goal of less than 7.0% ([facility])* 11/02/2023 11:20 AM EDT Office Visit [address] [phone] Ruben Gordillo MD [address] [place] [address] 11/25/2023 8:30 AM EDT Telemedicine Psychiatry Clarice Young [address] [phone] Mauri Macias DO [address] [place] [address] 11/25/2023 6:10 PM EDT Pharmacy Pharmacy, [address] [address] [facility] [address] [place] [address] 12/02/2023 3:20 PM EDT Office Visit Neurology [facility] [address] [facility] [place] [address] Vanessa Eid PA-C [address] [facility] [place] [address] 12/06/2023 1:20 PM EDT Office Visit Family [facility] [place] [address] [facility] [phone] Ruben Gordillo MD [address] [place] [address] Health Maintenance Due Date Last Done Comments [...] filedocumented as of this encounter Care Teams Lead Massage Therapist Relationship Specialty Start Date End Date Ruben Gordillo MD [address] [place] [address] PCP - General Internal Medicine 02/05/22 documented as of this encounter
--- OUTSIDE RECORDS SUMMARY | 2023-11-06 23:02 | External Medical Summary | Summary of Care ---
Author Name Unknown Organization [facility] Address [address] [place] [address] Phone [phone] Care Team Providers Care Cellar Pumper Name Role Phone Ruben Gordillo MD Primary Care Provider [phone] Reason for Visit * Reason Comments Appointment Encounter Details Date Type Department Care Team (Late st Contact Info) Description 10/28/2023 6:10 PM EDT Pharmacy Pharmacy, [address] [address] [facility] [address] [place] [address] Type 2 diabetes mellitus with hemoglobin A1c goal of less than 7.0% ([facility])* Allergies Active Allergy Reactions Criticality Noted Date [...] 3 07/31/2011 Active FreeStyle Sadiq 14 Day [place] Device Use as directed . 1 Each 02/13/2022 Active FreeStyle Sadiq 14 Day Sensor [...] MORNING 90 Tablet 3 02/09/2023 Active Nystatin 236071 UNIT/GM External Cream Apply 1 g topically [...] coated)Indications:D M type 2, not at goal ([facility]),HTN, goal below 130/80 TAKE 1 TABLET BY MOUTH EVERY MORNING 90 Tablet 1 10/19/2023 Active documented as of this encounter (statuses as of 10/28/2023) Active Problems Problem Noted Date Diagnosed Date History of hip surgery 02/09/2023 Non healing left heel wound 11/10/2022 S/P angioplasty with stent 06/23/2022 Coronary artery disease of n ative artery of [place] heart with stable angina pectoris 06/23/2022 Ischemic [...] as of this encounter Progress Notes * Carly Lyons PHARM Tech - 10/28/2023 8:37 AM EDT Patient Phone Numbers Sent [employer] message to schedule [facility] appointment for diabetes management. [facility] message sent --yes Clinic will follow up again in 4 week(s). [Attempt # 1] Thank you, Carly Lyons Is Architect [facility] [phone] 10/28/2023,8:37 AM documented in this encounter Plan of Treatment Upcoming Encounters Date Type Department Care Team (Late st Contact Info) Description 11/02/2023 11:20 AM EDT Office Visit [facility] [address] [place] [phone] Ruben Gordillo MD [address] [place] [address] 11/25/2023 8:30 AM EDT Telemedicine Psychiatry Clarice Young [address] [phone] Mauri Macias DO [address] [place] [address] 11/25/2023 6:10 PM EDT Pharmacy Pharmacy, [place] [address] [place] [address] [place] [facility] [address] [place] [address] 12/02/2023 3:20 PM EDT Office Visit Neurology [facility] [place] [address] [facility] [place] [address] Vanessa Eid PA-C [address] [facility] [place] [address] 12/06/2023 1:20 PM EDT Office Visit Family Practice, [place] [address] [place] [facility] [place] [phone] Ruben Gordillo MD [address], [place] [phone] Health Maintenance Due Date Last Done Comments [...] 01/11/2013, Additional history exists Albumin/Creatinine Ratio 01/12/2024 08 023, 11/30/2014, 01/11/2013, Additional history exists Influenza [...] as of this encounter Visit Diagnoses Diagnosis Type 2 diabetes mellitus with hemoglobin A1c goal of less than 7.0% (HCC)- Primary documented in this encounter Care Teams Cellar Pumper Relationship Specialty Start Date End Date Ruben Gordillo MD [address] [place] [address] PCP - General Internal Medicine 02/05/22 documented as of this encounter
--- OUTSIDE RECORDS SUMMARY | 2023-11-06 23:02 | External Medical Summary | Summary of Care ---
Author Name Unknown Organization [facility] Address [address] [place] [address] Phone [phone] Care Team Providers Care High Lift Operator Name Role Phone Ruben Gordillo MD Primary Care Provider [phone] Reason for Visit * - Authorized Specialty Diagnoses / Procedures Referred By Kike roberts Referred To Contact Referral ID Status Reason Start Date Expiration Date V isits Requested Visits Authorized [id number] Authorized 04/07/2023 04/05/2024 [id number] Encounter Details Date Type Department Care Team (Late st Contact Info) Description 10/26/2023 1:30 PM EDT Telemedicine Psychiatry [facility] [address] [place] [id number] Mauri Macias, [address] [place] [address] MED (generalized anxiety disorder)*; Panic disorder; Insomnia due to other mental disorder; Bipolar 2 disorder (HCC) Allergies Active Allergy Reactions Criticality Noted Date Comments Adhesive Tape 02/09/2023 Latex Rash 02/05/2022 Tramadol Nausea/vomiting 12/02/2014 documented as of this encounter (statuses as of 10/26/2023) Medications Medication Sig Dispensed Refills Start Date End Date Status GLUCOMETER ELITE CLASSIC KITIndications:DM type 2, not at goal (HCC) check blood sugar every morning when you get up 1 Kit 3 07/31/2011 Active FreeStyle Sadiq 14 Day Lorain Device Use as directed . 1 Each [...] MORNING 90 Tablet 3 02/09/2023 Active Nystatin 031201 UNIT/GM External Cream Apply 1 g topically to affected area in the morning and 1 g before bedtime. To affacted area for two weeks.. 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 hopi heart with stable angina pectoris 06/23/2022 Ischemic [...] as of this encounter (statuses as of 10/26/2023) Resolved Problems Problem Noted Date Diagnosed Date [...] as of this encounter (statuses as of 10/26/2023) Immunizations Name Administration Dates Next Due Hepatitis [...] as of this encounter Progress Notes * Mauri Macias, - 10/26/2023 1:33 PM EDT OUTPATIENT PSYCHIATRY RETURN VISIT DIVISION OF PSYCHIATRY [place] [address] Name: Shashi Moctezuma : 1975 Date and Time Patient was Seen: 10/26/2023 at 1:33 PM After connecting through televideo, patient was verified with two unique identifiers. Patient (or authorized legal service representative) was then informed that this was a Telemedicine visit and that the exam was being conducted confidentially over secure lines. My office door was closed. No one else was in the room with me. Patient acknowledged consent and understanding of privacy and security of the Telemedicine visit, and gave permission to have a telemedicine presenter stay in the room in order toassist with the history and to conduct the exam as needed. I informed the patient that I have reviewed their record in [facility] and presented the opportunity for them to ask any questions regarding the visit today. The patient agreed to participate. Patient location: HOME. I was not in a hospital or clinic location. After connecting through televideo, patient was verified with two unique identifiers. Patient (or authorized legal service representative) was then informed that this was a Telemedicine visit and being conducted confidentially over secure lines. Methods to assure confidentiality were taken. Patient acknowledged consent and understanding of privacy and security of the Telemedicine visit. The patient agreed to participate. CC: Follow up visit INTERVAL HISTORY: Shashi Moctezuma Jr. is a 47 year old male with PPH of MED, Bipolar II D/O, and PMH of DM2, diabetic neuropathy, dyslipidemia, CAD, HTN, Retinal artery occlusion, ischemic cardiomyopathy, systolic CHF,OA of B/L knees and s/p angioplasty with stent, who presents to telepsych clinic for scheduled follow up. Pt is in the hospital for the past week, admitted medically due to overflowing bladder requiring a catheter. Pt was told that due to DM, his bladder has become neurogenic and not voiding as it used to. He will be discharged today, home with a catheter and f/u with urology. This has affected pt's mood to some degree, but he is hopeful that as he brings the diabetes under better control, some of the bladder function will be restored. Continues to endorse that the mood has overall been better, with the exception of the past week being in the hospital. His medical conditions are the main stressors for him at this point. Looking forward to going home today. Feels that the meds are working better, and would like no further changes at this time. Has been Ramelteon is helping with falling asleep, only uses as needed, does not always need it. Completed eval with Sleep medicine, and plan to do a home sleep study next. Waiting for the home kit. Switching to Clonazepam has been helpful, much better for anxiety. Previous trials: Doxepin--vivid dreams/nightmares, not helpful for sleep Xanax-not adequately covering Psychiatricc ROS Sleep: slightly better, does not need Ramelteon as much much Appetite: Good, increased Suicidal ideation: Denied Homicidal ideation: Denied Psychosis: None reported Rosalie: None reported PTSD: None reported Panic attacks: None reported Memory issues: None reported Side effects: None reported D+A Use Alcohol: None Nicotine: None Other substances: None Medical Issues Acute medical issues at present: None Last PCP Visit: MEDICAL REVIEW OF SYSTEMS: No fever/dizziness/blurred vision/cough/chest pain/shortness of breath/abdominal pain/nausea/vomiting/bladder or bowel problems/headache/weakness/rigidity or pain reported. Any positive symptoms reported by patient are listed in the interval summary. ALLERGIES Review of patient's allergies indicates: Allergen Reactions Adhesive Tape Latex Rash Tramadol Nausea/vomiting CURRENT MEDICATIONS: Current Outpatient Medications Medication Sig Dispense Refill GLUCOMETER ELITE CLASSIC KIT check blood sugar every morning when you get up 1 Kit 3 FreeStyle Sadiq 14 Day Lorain Device Use as directed . 1 Each 1 FreeStyle Sadiq 14 Day Sensor Use as directed . 1 Each 11 Fiber/D3 Adult Gummies 2.5-500 GM-UNIT Oral Tablet Chewable (Inulin- Cholecalciferol) Take by mouth. Metoprolol Succinate ER 25 MG Oral Tablet Extended Release 24 Hour (toPROL XL) Take 1 Tablet by mouth in the morning and 1 Tablet before bedtime. 180 Tablet 3 Montelukast Sodium 10 MG Oral Tablet (Singulair) TAKE ONE TABLET BY MOUTH IN THE MORNING 90 Tablet 3 Nystatin 658654 UNIT/GM External Cream Apply 1 g topically to affected area in the morning and 1 g before bedtime. To affacted area for two weeks.. 30 g 5 Dulaglutide 1.5 MG/0.5ML Subcutaneous Solution Pen-injector ([employer]) Inject 1.5 mg under the skin once a week. 2 mL 11 metFORMIN HCl ER 500 MG Oral Tablet Extended Release 24 Hour (Glucophage XR) TAKE 2 TABLETS BY MOUTH TWICE DAILY WITH MORNING AND EVENING MEALS (Patient taking differently: Take 1 Tablet by mouth in the morning and 1 Tablet in the evening.) 360 Tablet 3 amLODIPine Besy-Benazepril HCl 5-20 MG Oral Capsule (Lotrel) Take 1 Capsule by mouth in the morning. 90 Capsule 3 Clopidogrel Bisulfate 75 MG Oral Tablet (pLAVix) Take 1 Tablet by mouth every afternoon. 90 Tablet 3 Atorvastatin Calcium 40 MG Oral Tablet (Lipitor) Take 1 Tablet by mouth in the morning. 90 Tablet 3 Jardiance 10 MG Oral Tablet (Empagliflozin) TAKE 1 TABLET BY MOUTH EVERY MORNING 30 Tablet 11 buPROPion HCl ER (XL) 450 MG Oral Tablet Extended Release 24 Hour (Forvifo XL) TAKE 1 TABLET BY MOUTH EVERY MORNING 30 Tablet 3 Ramelteon 8 MG Oral Tablet (Rozerem) Take 1 Tablet by mouth at bedtime. 90 Tablet 1 BD Pen Needle Mini U/F 31G X 5 MM (Insulin Pen Needle) USE WITH INSULIN PEN (Patient not taking: Reported on 09/02/2023) 100 Each 3 oxyBUTYnin Chloride ER 10 MG Oral Tablet Extended Release 24 Hour (Ditropan XL) Take 1 Tablet by mouth in the morning. Do not cut, crush or chew. 30 Tablet 11 DULoxetine HCl 60 MG Oral Capsule Delayed Release Particles (Cymbalta) Take 1 Capsule by mouth in the morning. Do not cut, crush or chew. 90 Capsule 3 Magnesium Oxide -Mg Supplement 400 (240 Mg) MG Oral Tablet (Mag-Ox) TAKE 1 TABLET BY MOUTH EVERY MORNING 90 Tablet 0 Riboflavin 400 MG Oral Tablet TAKE 1 TABLET BY MOUTH EVERY MORNING 90 Tablet 3 Pantoprazole Sodium 40 MG Oral Tablet Delayed Release (Protonix) TAKE 1 TABLET BY MOUTH EVERY 30 MINUTES BEFORE THE FIRST MEAL OF THE DAY. DO NOT CRUSH, CHEW OR SPLIT TABLET 30 Tablet 5 DULoxetine HCl 30 MG Oral Capsule Delayed Release Particles (Cymbalta) Take 1 Capsule by mouth in the morning. Take with the 60 mg capsule, for a total of 90 mg a day. 30 Capsule 3 clonazePAM 0.5 MG Oral Tablet (KlonoPIN) TAKE ONE TABLET BY MOUTH TWICE DAILY NEEDED FOR [id number] Tablet 0 busPIRone HCl 10 MG Oral Tablet (Buspar) TAKE ONE TABLET BY MOUTH IN THE MORNING AND ONE BEFORE BEDTIME 60 Tablet 5 Gabapentin 300 MG Oral Capsule (Neurontin) TAKE 1 CAPSULE BY MOUTH THREE TIMES DAILY EVERY MORNING,AT NOON, AND BEFORE BEDTIME 270 Capsule 1 Aspirin Low Dose 81 MG Oral Tablet Delayed Release (aspirin enteric coated) TAKE 1 TABLET BY MOUTH EVERY MORNING 90 Tablet 1 No current facility-administered medications for this visit. RECENT LABS/IMAGING: No results found for this or any previous visit (from the past 672 hour(s)). VITALS There were no vitals filed for this visit. Wt Readings from Last 3 Encounters: 09/02/23 93.9 kg (207 lb) 09/01/23 93.5 kg (206 lb 3.2 oz) 06/29/23 89.4 kg (197 lb) There is no height or weight on file to calculate BMI. CURRENT MEDICATIONS: Current Outpatient Medications Medication Sig Dispense Refill GLUCOMETER ELITE CLASSIC KIT check blood sugar every morning when you get up 1 Kit 3 FreeStyle Sadiq 14 Day Lorain Device Use as directed . 1 Each 1 FreeStyle Sadiq 14 Day Sensor Use as directed . 1 Each 11 Fiber/D3 Adult Gummies 2.5-500 GM-UNIT Oral Tablet Chewable (Inulin- Cholecalciferol) Take by mouth. Metoprolol Succinate ER 25 MG Oral Tablet Extended Release 24 Hour (toPROL XL) Take 1 Tablet by mouth in the morning and 1 Tablet before bedtime. 180 Tablet 3 Montelukast Sodium 10 MG Oral Tablet (Singulair) TAKE ONE TABLET BY MOUTH IN THE MORNING 90 Tablet 3 Nystatin 741515 UNIT/GM External Cream Apply 1 g topically to affected area in the morning and 1 g before bedtime. To affacted area for two weeks.. 30 g 5 Dulaglutide 1.5 MG/0.5ML Subcutaneous Solution Pen-injector ([employer]) Inject 1.5 mg under the skin once a week. 2 mL 11 metFORMIN HCl ER 500 MG Oral Tablet Extended Release 24 Hour (Glucophage XR) TAKE 2 TABLETS BY MOUTH TWICE DAILY WITH MORNING AND EVENING MEALS (Patient taking differently: Take 1 Tablet by mouth in the morning and 1 Tablet in the evening.) 360 Tablet 3 amLODIPine Besy-Benazepril HCl 5-20 MG Oral Capsule (Lotrel) Take 1 Capsule by mouth in the morning. 90 Capsule 3 Clopidogrel Bisulfate 75 MG Oral Tablet (pLAVix) Take 1 Tablet by mouth every afternoon. 90 Tablet 3 Atorvastatin Calcium 40 MG Oral Tablet (Lipitor) Take 1 Tablet by mouth in the morning. 90 Tablet 3 Jardiance 10 MG Oral Tablet (Empagliflozin) TAKE 1 TABLET BY MOUTH EVERY MORNING 30 Tablet 11 buPROPion HCl ER (XL) 450 MG Oral Tablet Extended Release 24 Hour (Forvifo XL) TAKE 1 TABLET BY MOUTH EVERY MORNING 30 Tablet 3 Ramelteon 8 MG Oral Tablet (Rozerem) Take 1 Tablet by mouth at bedtime. 90 Tablet 1 BD Pen Needle Mini U/F 31G X 5 MM (Insulin Pen Needle) USE WITH INSULIN PEN (Patient not taking: Reported on 09/02/2023) 100 Each 3 oxyBUTYnin Chloride ER 10 MG Oral Tablet Extended Release 24 Hour (Ditropan XL) Take 1 Tablet by mouth in the morning. Do not cut, crush or chew. 30 Tablet 11 DULoxetine HCl 60 MG Oral Capsule Delayed Release Particles (Cymbalta) Take 1 Capsule by mouth in the morning. Do not cut, crush or chew. 90 Capsule 3 Magnesium Oxide -Mg Supplement 400 (240 Mg) MG Oral Tablet (Mag-Ox) TAKE 1 TABLET BY MOUTH EVERY MORNING 90 Tablet 0 Riboflavin 400 MG Oral Tablet TAKE 1 TABLET BY MOUTH EVERY MORNING 90 Tablet 3 Pantoprazole Sodium 40 MG Oral Tablet Delayed Release (Protonix) TAKE 1 TABLET BY MOUTH EVERY 30 MINUTES BEFORE THE FIRST MEAL OF THE DAY. DO NOT CRUSH, CHEW OR SPLIT TABLET 30 Tablet 5 DULoxetine HCl 30 MG Oral Capsule Delayed Release Particles (Cymbalta) Take 1 Capsule by mouth in the morning. Take with the 60 mg capsule, for a total of 90 mg a day. 30 Capsule 3 clonazePAM 0.5 MG Oral Tablet (KlonoPIN) TAKE ONE TABLET BY MOUTH TWICE DAILY NEEDED FOR [id number] Tablet 0 busPIRone HCl 10 MG Oral Tablet (Buspar) TAKE ONE TABLET BY MOUTH IN THE MORNING AND ONE BEFORE BEDTIME 60 Tablet 5 Gabapentin 300 MG Oral Capsule (Neurontin) TAKE 1 CAPSULE BY MOUTH THREE TIMES DAILY EVERY MORNING,AT NOON, AND BEFORE BEDTIME 270 Capsule 1 Aspirin Low Dose 81 MG Oral Tablet Delayed Release (aspirin enteric coated) TAKE 1 TABLET BY MOUTH EVERY MORNING 90 Tablet 1 No current facility-administered medications for this visit. FAMILY HISTORY: Family History Problem Relation Name Age of Onset Hypertension Father Hypertension Mother Cancer Father Prostate Diabetes Grandmother (Maternal) PAST MEDICAL HISTORY: Past Medical History: Diagnosis Date Bipolar 1 disorder, depressed ([facility]) new psychiatrist this week at [facility] in [place] DM type 2, not at goal ([facility]) / Dyslipidemia, goal LDL below 100 HTN, goal below 140/80 Renal colic SUMMARY OF/CHANGES TO PAST PSYCHIATRIC, MEDICAL, FAMILY, OR SOCIAL HISTORY: See interval history MENTAL STATUS EXAMINATION: General appearance and behavior: Moderately kempt, calm, cooperative, pleasant, good eye contact, good rapport, no psychomotor abnormalities noted Motor: Normal gait and no abnormal movements noted via tele-medicine encounter Speech: Spontaneous with normal rate, normal volume and normal tone Mood: "still depressed and anxious, but much better overall" Affect: Euthymic, congruent with mood, normal range, appropriate Thought Process: Linear and logical Thought content: Denied suicidal or homicidal ideation. No delusions elicited Perception: Denied any auditory or visual hallucinations Insight: Good Judgment: Good Orientation: Oriented to person, place and time Attention/Concentration: Good Memory: Grossly intact Language: Fluent Fund of Knowledge: Adequate ASSESSMENT AND PLAN: Shashi Moctezuma is a 47 year old male with PPH of MED, Bipolar II D/O, and PMH of DM2, diabetic neuropathy, dyslipidemia, CAD, HTN, Retinal artery occlusion, ischemic cardiomyopathy, systolic CHF,OA of B/L knees and s/p angioplasty with stent, who presents to telepsych clinic for follow up. Pt p resents with improvement of depression and anxiety in the context of recent adjustments in psychotropic treatment. Still stressed out about his medical conditions, but is doing whatever he can to stay on top of all the appointments and recommendations. (Cymbalta was increased, Xanax was switched toKlonopin, Ramelteon was initiated). Recently admitted to the medical service for overflowing, neurogenic bladder, requiring a catheter. MED Panic disorder Insomnia Bipolar type 2 by history -Continue Wellbutrin XL 450 mg daily to further target depression -Continue Cymbalta 90 mg daily for depression, anxiety and neuropathy, switched to HS, in case it is making him tired in the day -Continue Ramelteon 8mg HS for insomnia, PRN, does not take as often -Continue Klonopin from 0.5 mg daily to BID PRN, rarely uses them, anxiety to better control anxiety, as a means to buy some time until Cymbalta shows some response, and pave the way for a slow taperoff of this medication, as tolerated, once the anxiety is better under control with Cymbalta. Discussed the risk associated with chronic Benzo therapy, especially short-acting agents such as Xanax, including seizure, tolerance/addiction, fall risk, and cognitive decline. long-term goal is to keep alow maintenance dose as needed vs complete discontinuation. Plan is to taper off as of next month. -had an eval with the sleep medicine clinic. Plan is to do a home sleep study ; pt was encouraged to reach out to sleep medicine again to inquire about the home kit. -educated on sleep hygiene -educated on importance of complicane with DM meds -will f/u with urology upon d/c Laboratory tests: None Therapy: not currently in therapy RTC: in 4 weeks Treatment options and alternatives reviewed with patient who agrees with the above plan. Information about current medications was provided to the patient including reasons why medications are being used. Patient understood the risks, benefits, side-effects, and potential complications associated with changes in medications being proposed (both medications being started and medications being discontinued or having dose changed). Patient is making an informed medical decision to follow the recommendations outlined in this note. Directed patient to call with any questions or concerns, worseningsymptoms and/or ask for earlier appointment. Their current psychosocial stressors were discussed with the patient. Supportive psychotherapy was provided to help them with better coping with their current stressors. Breathing, relaxation, distraction and behavioral activation techniques were explained to the patient where and when clinically indicated. The importance of medication compliance was reinstated. The importance of heathy diet, regular exercise and daily sleep hygiene/routine was reiterated to the patient. Risk assessment was performed. This is a patient being treated for mental health conditions and/or substance use disorder as characterized above. At the time of this visit, there was no indication that this patient was either a risk to self, others, or gravely disabled by symptoms of a mental illness or substance use disorder. At the time of this evaluation, patient did not appear to be an acute risk to self or others. There were enough protective factors in place and it was deemed safe and appropriate to continue with treatment on a outpatient basis with return to clinic in the timeframe described below. We reviewed previous crisis plan should he/she experience worsening of symptoms before next follow-up appointment, including being aware of what resources to use according to the urgency and severityof symptoms. Shashi Moctezuma Jr. was able to verbalize understanding of the steps necessary to obtain help between appointments should be needed, from requesting a phone call, to requesting an appointment sooner, including reaching clinic after hours, accessing our system, and accessing emergency mental health and medical services, either at a local emergency department or by activating mobile crisis teams andEMS. Time Spent on Visit: 20 minutes Time spent on counseling over and above medication management: 17 minutes Billing code: [id number] and [id number] Treatment plan renewed on 06/29/2023 Mauri Macias DO Psychiatrist, [facility] 10/26/2023 documented in this encounter Plan of Treatment Upcoming Encounters Date Type Department Care Team (Late st Contact Info) Description 10/28/2023 6:10 PM EDT Pharmacy Pharmacy, [address] [place] [address] [facility] [address] [place] [address] 11/02/2023 11:20 AM EDT Office Visit [facility] [address] [place] [phone] Ruben Gordillo MD [address] [place] [address] 11/25/2023 8:30 AM EDT Telemedicine Psychiatry [facility] [address] [place] [address] Mauri Macias DO [address] [place] [address] 12/02/2023 3:20 PM EDT Office Visit Neurology [facility] [address] [facility] [place] [address] Vanessa Eid PA-C [address] [facility] [place] [address] 12/06/2023 1:20 PM EDT Office Visit [facility] [address] [place] [phone] Ruben Gordillo MD [address] [place] [address] Health Maintenance Due Date Last Done Comments [...] as of this encounter Visit Diagnoses Diagnosis MED (generalized anxiety disorder)- Primary Generalized anxiety disorder Panic disorder Panic disorder without agoraphobia Insomnia due to other mental disorder Bipolar 2 disorder (HCC) Other bipolar disorders documented in this encounter Care Teams High Lift Operator Relationship Specialty Start Date End Date Ruben Gordillo MD [address] [place] [address] PCP - General Internal Medicine 02/05/22 documented as of this encounter
--- OUTSIDE RECORDS SUMMARY | 2023-11-06 23:03 | External Medical Summary | Summary of Care ---
Author Name Unknown Organization [facility] Address [address] [place] [address] Phone [phone] Care Team Providers Care Raimann Machine Operator Name Role Phone Ruben Gordillo MD Primary Care Provider [phone] Reason for Visit * Reason Onset Date Comments Test Results 10/11/2023 MRI L SPINE WO C ONTRAST Encounter Details Date Type Department Care Team (Late st Contact Info) Description 10/11/2023 Telephone Neurology [facility] [address] [place] [address] Vanessa Eid PA-C [address] [place] [address] Test Results (MRI L SPINE WO CONTRAST) Allergies Active Allergy Reactions Criticality Noted Date Comments Adhesive Tape 02/09/2023 Latex Rash 02/05/2022 Tramadol Nausea/vomiting 12/02/2014 documented as of this encounter (statuses as of 10/22/2023) Medications Medication Sig Dispensed Refills Start Date End Date Status GLUCOMETER ELITE CLASSIC KITIndications:DM type 2, not at goal (HCC) check blood sugar every morning when you get up 1 Kit 3 2 Active FreeStyle Sadiq 14 Day [place] Device Use as directed . 1 Each [...] MORNING 90 Tablet 3 3 Active Nystatin [id number] UNIT/GM External Cream Apply 1 g topically [...] as of this encounter (statuses as of 10/22/2023) Active Problems Problem Noted Date Diagnosed Date History of hip surgery 02/09/2023 Non healing left heel wound 11/10/2022 S/P angioplasty with stent 06/23/2022 Coronary artery disease of n ative artery of [place] heart with stable angina pectoris 06/23/2022 Ischemic [...] as of this encounter (statuses as of 10/22/2023) Resolved Problems Problem Noted Date Diagnosed Date [...] as of this encounter (statuses as of 10/22/2023) Immunizations Name Administration Dates Next Due Hepatitis [...] unexpected or indeterminate finding on Shashi Moctezuma ([id number]) and asks that you review the following [...] Thank you, NICOLAS Burgos Client Service Rep [facility] [place] documented in this encounter Plan of Treatment Upcoming Encounters Date Type Department Care Team (Late st Contact Info) Description 10/26/2023 1:30 PM EDT Telemedicine Psychiatry Clarice Young [address] [place] [address] Mauri Macias, [address] [place] [address] 10/28/2023 6:10 PM EDT Pharmacy Pharmacy, [address] [address] [facility] [address] [place] [address] 12/02/2023 3:20 PM EDT Office Visit Neurology [facility] [address] [facility] [place] [address] Vanessa Eid PA-C [address] [facility] [place] [address] 12/06/2023 1:20 PM EDT Office Visit [facility] [place] [place] [address] [place] [facility] [place] [phone] Ruben Gordillo MD [address] [place] [facility] [place] [address] Health Maintenance Due Date Last Done Comments [...] filedocumented as of this encounter Care Teams Raimann Machine Operator Relationship Specialty Start Date End Date Ruben Gordillo MD [address] [place] [address] PCP - General Internal Medicine 02/05/22 documented as of this encounter
[2023-11-06] MEDS ORDERED: POLYETHYLENE (MIRALAX) 17 GM PACK PO PRN (23:31)
[2023-11-07] MEDS: POLYETHYLENE (MIRALAX) 17 GM PACK PO STA (00:26)
[2023-11-07] MEDS: DOCUSATE SODIUM/SENNA 50/8.6MG TAB PO STA (00:26)
[2023-11-07] MEDS: LACTATED RINGER'S 1,000 ML IV STA (00:55)
[2023-11-07] MEDS ORDERED: PROMETHAZINE HCL 6.25 MG in SODIUM CHLORIDE 0.9% 50 ML IV PRN (02:05)
[2023-11-07] MEDS ORDERED: GLUCOSE 10 TAB/TUBE PO PRN (02:05)
[2023-11-07] MEDS ORDERED: GLUCAGON FOR INJ 1 MG VIAL SQ PRN (02:05)
[2023-11-07] MEDS ORDERED: DEXTROSE 50% 50 ML SYRINGE IV PRN (02:05)
[2023-11-07] MEDS ORDERED: GLUCOSE 40% GEL 15 GM TUBE PO PRN (02:05)
[2023-11-07] MEDS ORDERED: CARBOHYDRATES FOR HYPOGLYCEMIA PO PRN (02:05)
[2023-11-07] MEDS: INSULIN ASPART PER UNIT CHARGE SC SCH (02:43)
[2023-11-07] MEDS: oxyCODONE HCL IR 5 MG TAB (IMMEDIATE RELEASE) PO PRN (02:55)
[2023-11-07 04:49] LABS: Hematocrit (blood only) 34.1 % (42.0-52.0); Mean Corpuscular Hemoglobin 27.3 pg (25.0-34.0); Mean Corpuscular Hgb Conc 32.3 g/dL (32.0-36.0); Mean Corpuscular Volume 84.6 fL (80.0-100.0); Mean Platelet Volume 10.9 fL (9.4-12.4); Platelet Count 475 K/uL (130-400); RDW Coefficient of Variation 13.9 % (11.5-14.5); Red Blood Count 4.03 M/uL (4.70-6.10); White Blood Count 24.56 K/ul (4.8-10.8)
[2023-11-07 05:02] LABS: BUN Creatinine Ratio 12.8 (10-20); Calcium 8.3 mg/dl (8.6-10.3); Creatinine Clr Calc Pharmacy 61.1 ml/min; Est GFR (African American) 56.9 ml/min; Est GFR (Non-African American) 49.1 ml/min
[2023-11-07 05:17] LABS: Basophils # (auto) 0.21 K/uL (0.00-0.20); Basophils % (auto) 0.9 %; Eosinophils # (auto) 0.19 K/uL (0.00-0.50); Eosinophils % (auto) 0.8 %; Immature Granulocytes % (auto) 0.8 %; Lymphocytes # (auto) 2.37 K/uL (1.20-3.40); Lymphocytes % (auto) 9.6 %; Monocytes # (auto) 3.11 K/uL (0.11-0.59); Monocytes % (auto) 12.7 %; Neutrophils # (auto) 18.48 K/uL (1.40-6.50); Neutrophils % (auto) 75.2 %
[2023-11-07] MEDS: CARBAMIDE PEROXIDE 6.5% 15 ML BTL OTR SCH (05:38)
[2023-11-07] MEDS: HEPARIN SOD 5,000 UNIT/0.5 ML VIAL SQ SCH (06:46)
[2023-11-07] MEDS: ACETAMINOPHEN 325 MG TAB PO PRN (07:26)
[2023-11-07] MEDS: CEFEPIME 2,000 MG in SYRINGE 0 ML IV SCH (07:28)
[2023-11-07] MEDS: ASPIRIN 81 MG ECTAB PO SCH (08:20)
[2023-11-07] MEDS: DULoxetine HCL 60 MG CAP PO SCH (08:21)
[2023-11-07] MEDS: DOCUSATE SODIUM/SENNA 50/8.6MG TAB PO SCH (08:21)
[2023-11-07] MEDS: ATORVASTATIN 40 MG TAB PO SCH (08:21)
[2023-11-07] MEDS: OXYBUTYNIN CHLORIDE XL 5 MG TABCR PO SCH (08:21)
[2023-11-07] MEDS: DULoxetine HCL 30 MG CAP PO SCH (08:21)
[2023-11-07] MEDS: GABAPENTIN 300 MG CAP PO SCH (08:21)
[2023-11-07] MEDS: buPROPion XL 150 MG TABCR PO SCH (08:21)
[2023-11-07] MEDS: busPIRone 5 MG TAB PO SCH (08:21)
[2023-11-07] MEDS: PANTOprazole 40 MG TAB PO SCH (08:22)
--- NOTE | 2023-11-07 08:39 | Urology Consultation ---
Date of Consultation November 07, 2023 Assessment & Plan (1) Acute UTI: (2) Sepsis: (3) Urinary retention: Plan 48-year-old male recently admitted for hematuria, SAMANTHA and bilateral hydronephrosis. He was discharged with a catheter in place. He returns to the hospital after numerous falls and was found to be septic likely from a urinary tract infection. No acute urologic intervention necessary Maintain Medrano catheter Follow-up cultures and tailor antibiotics accordingly. Would recommend 14 days of total treatment Message has already been sent for hospital follow-up from his last visit Urology to sign off History of Present Illness Attending Physician: Daron Negron MD History of Present Illness 48-year-old male who is previously admitted earlier this month for urinary retention, hydronephrosis and gross hematuria. He was hospitalized until 10/26/2023. He was discharged with a catheter in place. He was readmitted due to recurrent falls at home. He was tachycardic upon admission but blood pressures have been stable or hypertensive. Temperature as high as 37.8 Celsius. Labs showed leukocytosis of 20 upon admission which is increased to 24.5 today. Creatinine was elevated at 2.1 but is down trended to 1.6. Urinalysis was grossly positive and urine cultures prelim gram-negative bacilli. He is currently on cefepime. He had a CT scan of the abdomen pelvis which I independently reviewed and does not show any hydronephrosis. Bladder is decompressed with a catheter in place. There does appear to be some air in the bladder and but does not appear to extend into the lumen. Allergies Allergy/AdvReac Type Severity Reaction Status Date / Time adhesive Allergy Intermediate Contact Verified 11/06/23 21:08 dermatitis latex Allergy Mild RASH Verified 11/06/23 21:08 tramadol Allergy Unknown n/v Verified 11/06/23 21:08 Home Medications Medication Instructions Recorded Confirmed Type gabapentin 300 mg capsule 300 mg PO TID 06/16/22 11/06/23 History montelukast 10 mg tablet 10 mg PO QAM 06/16/22 11/06/23 History pantoprazole 40 mg tablet,delayed 40 mg PO QAM 06/16/22 11/06/23 History release aspirin 81 mg tablet,delayed 81 mg PO QAM 01/31/23 11/06/23 History release buspirone 10 mg tablet 10 mg PO BID 01/31/23 11/06/23 History cholecalciferol (vitamin D3) 25 25 mcg PO QDL 01/31/23 11/06/23 History mcg (1,000 unit) capsule (Vitamin D3) duloxetine 60 mg capsule,delayed 60 mg PO QAM 01/31/23 11/06/23 History release empagliflozin 10 mg tablet 10 mg PO QAM 01/31/23 11/06/23 History (Jardiance) amlodipine 5 mg-benazepril 20 mg 1 cap PO DAILY 10/19/23 11/06/23 History capsule atorvastatin 40 mg tablet 40 mg PO QAM 10/19/23 11/06/23 History bupropion HCl 450 mg 24 hr tablet, 450 mg PO QAM 10/19/23 11/06/23 History extended release clonazepam 0.5 mg tablet 0.5 mg PO BID PRN Anxiety 10/19/23 11/06/23 History clopidogrel 75 mg tablet 75 mg PO DAILYBL 10/19/23 11/06/23 History dulaglutide 1.5 mg/0.5 mL 1.5 mg subcut TU 10/19/23 11/06/23 History subcutaneous pen injector (Trulicity) duloxetine 30 mg capsule,delayed 30 mg PO QAM 10/19/23 11/06/23 History release magnesium oxide 400 mg (241.3 mg 400 mg PO QAM 10/19/23 11/06/23 History magnesium) tablet metformin 500 mg tablet,extended 500 mg PO BID 10/19/23 11/06/23 History release 24 hr metoprolol succinate 25 mg 25 mg PO BID 10/19/23 11/06/23 History tablet,extended release 24 hr oxybutynin chloride 10 mg 10 mg PO QAM 10/19/23 11/06/23 History tablet,extended release 24 hr ramelteon 8 mg tablet 8 mg PO HS PRN Sleep 10/19/23 11/06/23 History amlodipine 5 mg tablet 5 mg PO DAILY #30 tabs 10/26/23 11/06/23 Rx lidocaine HCl 2 % mucosal jelly in 0.5 ml EXT BID PRN catheter Pain 10/26/23 11/06/23 Rx applicator #125 mL Patient History Medical History Noncompliance Central retinal artery occlusion, left eye Diabetic peripheral neuropathy Surgical History S/P arthroscopic knee surgery History of dental surgery Family History Other Cancer Diabetes Hypertension Social History Smoking Status: Never smoker Tobacco Type: Smokeless Tobacco (Dip or Chew) Second Hand Exposure: No; Do You Dip or Chew Tobacco: Yes; Hx Alcohol Use: Yes Alcohol type: beer Hx Substance Use: No Preferred Language: Mauritanian Communication Ability: Effective 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: No Beliefs That Will Affect Care: None Current Living Situation: Family Current Living Situation Comment: Lives with parents Other Information That Helps Us Care for You: No Feels Safe at Home: Yes Safety Concerns: Feels Safe At This Time Assistive Devices: Cane, Glasses and Wheelchair Physical Exam Physical Exam: General: Alert and oriented, no acute distress HEENT: Normocephalic, mucous membranes moist Pulmonary: Nonlabored respirations Abdomen: Nondistended : Medrano catheter draining clear urine Extremities: Moves all 4 spontaneously Neuro: No gross deficits Skin: Warm, dry, no rashes noted Results & Data Vital Signs (Past 12 Hours) Vital Signs Temp Pulse Pulse Resp BP BP Pulse Ox 11/07/23 07:17 37.8 C H 116 H 19 140/97 97 11/07/23 07:06 116 H 11/07/23 04:00 121 H 16 139/103 H 96 11/07/23 03:34 37.4 C 119 H 13 188/118 H 95 11/06/23 22:36 102 H 21 99 11/06/23 22:15 102 H 16 11/06/23 22:00 101 H 13 97 11/06/23 21:48 101 H 15 98 11/06/23 21:33 100 H 17 11/06/23 21:32 101 H 11/06/23 21:24 100 H 17 11/06/23 21:00 99 H 10 L 11/06/23 21:00 154/97 H 11/06/23 20:54 99 H 15 94 O2 Del Method 11/07/23 07:17 Room Air 11/07/23 07:06 11/07/23 04:00 Room Air 11/07/23 03:34 Room Air 11/06/23 22:36 Room Air 11/06/23 22:15 11/06/23 22:00 11/06/23 21:48 11/06/23 21:33 11/06/23 21:32 11/06/23 21:24 11/06/23 21:00 11/06/23 21:00 11/06/23 20:54 PG Care Time/CCT Total # of Minutes Spent Total Time Spent with Patient: Total time spent is greater than 50% in coordination of care (as documented) at patient's floor/unit and/or counseling patient: Coding Level of Care Code 51988 IN/OBS CONSULT LVL 3,45M Diagnoses Acute UTI N39.0 Sepsis A41.9 Sepsis acute organ dysfunction status: without acute organ dysfunction Sepsis type: sepsis due to unspecified organism Urinary retention R33.9 (2) Sepsis Sepsis acute organ dysfunction status: without acute organ dysfunction Sepsis type: sepsis due to unspecified organism Qualified Code(s): A41.9 - Sepsis, unspecified organism
[2023-11-07] MEDS: CLOPIDOGREL BISULFATE 75 MG TAB PO SCH (09:31)
[2023-11-07] MEDS: FOLIC ACID 400 MCG TAB PO SCH (09:31)
[2023-11-07] MEDS: THIAMINE HCL 100 MG TAB PO SCH (09:31)
[2023-11-07] MEDS: MONTELUKAST SODIUM 10 MG TABLET PO SCH (09:31)
--- NOTE | 2023-11-07 13:58 | Hospitalist Progress Note ---
Date of Service November 07, 2023 Assessment & Plan (1) Sepsis: Plan: Severe sepsis Complicated urinary tract infection Likely secondary to Medrano catheter H/O B/L hydronephrosis/obstructive uropathy with indwelling Medrano catheter Urinary retention --CT ABD:Medrano catheter in an underdistended bladder limits evaluation. Please correlate with urinalysis to evaluate for cystitis. Cholelithiasis. No acute traumatic abnormality. -- Urine culture growing gram-negative bacilli Continue IV cefepime for now Appreciate urology input Continue Medrano catheter Will need follow-up with urology on discharge Acute Kidney Injury Cr:2.14>1.6 Continue IV fluids Avoid nephrotoxic agents as able Monitor renal function Metformin, Jardiance were discontinued on prior admission as recommended by nephrology Needs follow-up with nephrology on discharge per further workup for proteinuria Obstipation No signs of bowel obstruction on imaging Continue bowel regimen Recurrent falls Ambulatory dysfunction Refused to be discharged to rehab last admission Currently agreeable to go to rehab Fall precautions PT OT Chronic leukocytosis Was evaluated by hematology in the past Monitor CBC Impacted cerumen Continue Debrox CAD S/O POLY in 06/2022 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 Yasmany Haywood continue ASA, statin, metoprolol, Plavix REJI inhibitor discontinued last admission due to SAMANTHA DM II HbA1c 7.9 on Trulicity Metformin, Jardiance discontinued last admission due to worsening renal function Continue insulin while hospitalized Monitor BGs Bipolar depression MED continue Cymbalta, Wellbutrin, Buspar, Klonopin Hyperlipidemia on statin Diabetic neuropathy continue gabapentin Follows [facility] neurology Hypertension Antihypertensives held due to low BP on presentation Resume metoprolol Monitor BP and adjust medications as needed DVT Px: Heparin SQ Code Status Full code Disposition PT OT prior to discharge Admission and Anticipated Discharge Date Admission Date: November 06, 2023 Subjective Patient is seen and examined at bedside Reports chronic bilateral neuropathy of lower extremities associated with numbness Also reports right ear discomfort and constipation Denies any chest pain, dyspnea No other complaints Review of Systems Review of Systems: All systems reviewed & are unremarkable except as noted in Subjective Physical Exam Physical Exam: Physical Exam: Vitals signs as noted above General Appearance:Moderately built and nourished, no apparent distress Head: normocephalic, Atraumatic Eyes: normal inspection, EOMI Neck: supple, Trachea midline Respiratory/Chest: Normal breath sounds, CTA, No accessory muscle use Cardiovascular: S1, S2, No murmur Abdomen/GI:Soft, Non tender, Bowel sounds present Extremities/Musculoskeletal:normal inspection, no edema Neurologic/Psych:AAOX3, grossly no focal neurological deficits Skin: normal color, warm, +tattoos Results & Data Results & Data Vital Signs (Past 12 Hours) Vital Signs Temp Pulse Pulse Resp BP Pulse Ox O2 Del Method 11/07/23 13:24 103 H 14 11/07/23 12:14 37.5 C 106 H 21 135/86 98 Room Air 11/07/23 12:00 106 H 21 11/07/23 11:09 106 H 23 11/07/23 09:54 37.5 C 11/07/23 07:17 37.8 C H 116 H 19 140/97 97 Room Air 11/07/23 07:06 116 H 11/07/23 04:00 121 H 16 139/103 H 96 Room Air 11/07/23 03:34 37.4 C 119 H 13 188/118 H 95 Room Air Laboratory Results Short CBC 11/06/23 11/07/23 Range/Units 17:55 03:58 WBC 20.07 H 24.56 H (4.8-10.8) K/ul Hgb 11.9 L 11.0 L (14.0-18.0) g/dl Hct 37.2 L 34.1 L (42.0-52.0) % Plt Count 505 H 475 H (130-400) K/uL BMP 11/06/23 11/07/23 17:55 03:58 Sodium 139 138 Potassium 4.6 4.0 Chloride 105 107 Carbon Dioxide 22 22 BUN 25 H 21 Creatinine 2.14 H 1.64 H D Glucose 132 H 130 H Calcium 9.3 8.3 L Cardiac Enzymes 11/06/23 Range/Units 17:55 Total Creatine Kinase 130 (30-223) U/L Liver Function 11/06/23 Range/Units 17:55 Total Bilirubin 0.8 (0.2-1.0) mg/dl AST 15 (13-39) U/L ALT 13 (7-52) U/L Alkaline Phosphatase 93 (34-104) U/L Albumin 4.0 (3.4-5.0) gm/dl Urine 11/06/23 Range/Units 19:05 Urine Color Dark Yellow Urine Appearance Turbid A (Clear) Urine pH 5.5 (4.5-7.5) Ur Specific [place] 1.030 (1.000-1.030) Urine Protein 2+ H (Negative) Urine Glucose (UA) 3+ H (Negative) (1) Sepsis Sepsis acute organ dysfunction status: without acute organ dysfunction Sepsis type: sepsis due to unspecified organism Qualified Code(s): A41.9 - Sepsis, unspecified organism
[2023-11-07] MEDS: NICOTINE 21 MG/24 HR TDSY TD SCH (16:35)
[2023-11-07] MEDS: METOPROLOL SUCC 25MG EXT REL TAB PO SCH (21:03)
[2023-11-07] MEDS: clonazePAM 0.5 MG TAB PO PRN (22:56)
[2023-11-08 06:15] LABS: Hematocrit (blood only) 30.7 % (42.0-52.0); Mean Corpuscular Hemoglobin 27.7 pg (25.0-34.0); Mean Corpuscular Hgb Conc 32.6 g/dL (32.0-36.0); Mean Platelet Volume 10.7 fL (9.4-12.4); Platelet Count 407 K/uL (130-400); RDW Standard Deviation 43.1 fL (36.4-46.3); Red Blood Count 3.61 M/uL (4.70-6.10); White Blood Count 18.68 K/ul (4.8-10.8)
[2023-11-08 06:33] LABS: BUN Creatinine Ratio 10.1 (10-20); Calcium 7.8 mg/dl (8.6-10.3); Creatinine Clr Calc Pharmacy 63.4 ml/min; Est GFR (African American) 59.5 ml/min; Est GFR (Non-African American) 51.3 ml/min; Magnesium 1.8 mg/dl (1.7-2.4)
[2023-11-08] MEDS: amLODIPine BESYLATE 5 MG TAB PO ONE (11:05)
[2023-11-08] MEDS: CEFEPIME 2,000 MG in SYRINGE 0 ML IV SCH (17:39)
--- NOTE | 2023-11-08 17:40 | Hospitalist Progress Note ---
Date of Service November 08, 2023 Assessment & Plan (1) Sepsis: Plan: Severe sepsis Complicated urinary tract infection Likely secondary to Medrano catheter H/O B/L hydronephrosis/obstructive uropathy with indwelling Medrano catheter Urinary retention --CT ABD:Medrano catheter in an underdistended bladder limits evaluation. Please correlate with urinalysis to evaluate for cystitis. Cholelithiasis. No acute traumatic abnormality. -- Urine culture --preliminary growing Citrobacter --Blood cultures pending Continue IV cefepime for now Appreciate urology input Continue Medrano catheter Will need follow-up with urology on discharge PT OT recommends rehab placement Acute Kidney Injury Cr:2.14>1.6 Continue IV fluids Avoid nephrotoxic agents as able Monitor renal function Metformin, Jardiance were discontinued on prior admission as recommended by nephrology Needs follow-up with nephrology on discharge per further workup for proteinuria Cr 1.5 today Obstipation No signs of bowel obstruction on imaging Continue bowel regimen Hypertension Antihypertensives held due to low BP on presentation Continue metoprolol Added teds Limited use of antihypertensives given significant orthostatic hypotension Monitor BP Recurrent falls Ambulatory dysfunction Refused to be discharged to rehab last admission Currently agreeable to go to rehab Fall precautions PT OT--Recommends Rehab Chronic leukocytosis Was evaluated by hematology in the past Monitor CBC Impacted cerumen Continue Debrox CAD S/O POLY in 06/2022 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 Yasmany Haywood continue ASA, statin, metoprolol, Plavix REJI inhibitor discontinued last admission due to [facility]THA [facility], Jardiance discontinued last admission due to worsening renal function Continue insulin while hospitalized Monitor BGs Bipolar depression MED continue Cymbalta, Wellbutrin, Buspar, Klonopin Hyperlipidemia on statin Diabetic neuropathy continue gabapentin Follows [facility] neurology DVT Px: Heparin SQ Code Status Full code Disposition Rehab as able Admission and Anticipated Discharge Date Admission Date: November 06, 2023 Subjective Patient is seen and examined at bedside Noted to have orthostatic hypotension today Patient reports having some right ear discomfort Denies any chest pain, dyspnea No other complaints Review of Systems Review of Systems: All systems reviewed & are unremarkable except as noted in Subjective Physical Exam Physical Exam: Physical Exam: Vitals signs as noted above General Appearance:Moderately built and nourished, no apparent distress Head: normocephalic, Atraumatic Eyes: normal inspection, EOMI Neck: supple, Trachea midline Respiratory/Chest: Normal breath sounds, CTA, No accessory muscle use Cardiovascular: S1, S2, No murmur Abdomen/GI:Soft, Non tender, Bowel sounds present Extremities/Musculoskeletal:normal inspection, no edema Neurologic/Psych:AAOX3, grossly no focal neurological deficits Skin: normal color, warm, +tattoos Results & Data Results & Data Vital Signs (Past 12 Hours) Vital Signs Temp Pulse Pulse Resp BP BP Pulse Ox 11/08/23 16:07 101 H 11/08/23 16:01 37.4 C 95 H 18 153/100 H 97 11/08/23 12:34 36.9 C 97 H 18 157/97 H 96 11/08/23 07:43 36.9 C 91 H 18 155/99 H 96 11/08/23 06:35 101 H O2 Del Method 11/08/23 16:07 11/08/23 16:01 Room Air 11/08/23 12:34 Room Air 11/08/23 07:43 Room Air 11/08/23 06:35 Laboratory Results Short CBC 11/08/23 Range/Units 05:42 WBC 18.68 H (4.8-10.8) K/ul Hgb 10.0 L (14.0-18.0) g/dl Hct 30.7 L (42.0-52.0) % Plt Count 407 H (130-400) K/uL BMP 11/08/23 05:42 Sodium 138 Potassium 4.0 Chloride 106 Carbon Dioxide 25 BUN 16 Creatinine 1.58 H Glucose 86 Calcium 7.8 L (1) Sepsis Sepsis acute organ dysfunction status: without acute organ dysfunction Sepsis type: sepsis due to unspecified organism Qualified Code(s): A41.9 - Sepsis, unspecified organism
[2023-11-09 07:04] LABS: Hematocrit (blood only) 32.3 % (42.0-52.0); Hemoglobin 10.4 g/dl (14.0-18.0); Mean Corpuscular Hemoglobin 27.4 pg (25.0-34.0); Mean Corpuscular Hgb Conc 32.2 g/dL (32.0-36.0); Mean Corpuscular Volume 85.2 fL (80.0-100.0); Mean Platelet Volume 10.7 fL (9.4-12.4); Platelet Count 401 K/uL (130-400); Red Blood Count 3.79 M/uL (4.70-6.10); White Blood Count 16.57 K/ul (4.8-10.8)
[2023-11-09 07:20] LABS: BUN Creatinine Ratio 10.4 (10-20); Calcium 8.2 mg/dl (8.6-10.3); Creatinine Clr Calc Pharmacy 65.1 ml/min; Est GFR (African American) 61.4 ml/min; Est GFR (Non-African American) 52.9 ml/min; Potassium 4.2 mmol/L (3.5-5.1)
[2023-11-09] MEDS ORDERED: amLODIPine BESYLATE 5 MG TAB PO SCH (09:00)
[2023-11-09] MEDS: LACTATED RINGER'S 1,000 ML IV ONE (15:06)
--- NOTE | 2023-11-09 15:55 | Hospitalist Progress Note ---
Date of Service November 09, 2023 Assessment & Plan (1) Sepsis: Plan: Severe sepsis Complicated urinary tract infection Likely secondary to Medrano catheter H/O B/L hydronephrosis/obstructive uropathy with indwelling Medrano catheter Urinary retention --CT ABD:Medrano catheter in an underdistended bladder limits evaluation. Please correlate with urinalysis to evaluate for cystitis. Cholelithiasis. No acute traumatic abnormality. -- Urine culture --preliminary growing Citrobacter --Blood cultures pending Continue IV cefepime Appreciate urology input Continue Medrano catheter Will need follow-up with urology on discharge PT OT recommends rehab placement Will give IV fluids today given orthostatic hypotension Plan to discharge to rehab facility as able Acute Kidney Injury Cr:2.14>1.6 Continue IV fluids Avoid nephrotoxic agents as able Monitor renal function Metformin, Jardiance were discontinued on prior admission as recommended by nephrology Needs follow-up with nephrology on discharge per further workup for proteinuria Cr 1.5 today Obstipation No signs of bowel obstruction on imaging Continue bowel regimen Hypertension Antihypertensives held due to low BP and orthostatic hypotension Continue metoprolol with holding parameters Added teds Limited use of antihypertensives given significant orthostatic hypotension Monitor BP Recurrent falls Ambulatory dysfunction Refused to be discharged to rehab last admission Currently agreeable to go to rehab Fall precautions PT OT--Recommends Rehab Chronic leukocytosis Was evaluated by hematology in the past Monitor CBC Leukocytosis trending down Impacted cerumen Continue Debrox Advised to follow-up with ENT as outpatient CAD S/O POLY in 06/2022 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 Yasmany Merlos continue ASA, statin, metoprolol, Plavix REJI inhibitor discontinued last admission due to SAMANTHA DM II HbA1c 7.9 on Trulicity Metformin, Jardiance discontinued last admission due to worsening renal function Continue insulin while hospitalized Monitor BGs Bipolar depression MED continue Cymbalta, Wellbutrin, Buspar, Klonopin Hyperlipidemia on statin Diabetic neuropathy continue gabapentin Follows [facility] DVT Px: Heparin SQ Code Status Full code Disposition Rehab as able Admission and Anticipated Discharge Date Admission Date: November 06, 2023 Subjective Patient is seen and examined at bedside No new complaints Remains orthostatic today No significant right ear pain today Denies any chest pain, dyspnea Review of Systems Review of Systems: All systems reviewed & are unremarkable except as noted in Subjective Physical Exam Physical Exam: Physical Exam: Vitals signs as noted above General Appearance:Moderately built and nourished, no apparent distress Head: normocephalic, Atraumatic Eyes: normal inspection, EOMI Neck: supple, Trachea midline Respiratory/Chest: Normal breath sounds, CTA, No accessory muscle use Cardiovascular: S1, S2, No murmur Abdomen/GI:Soft, Non tender, Bowel sounds present Extremities/Musculoskeletal:normal inspection, no edema Neurologic/Psych:AAOX3, grossly no focal neurological deficits Skin: normal color, warm, +tattoos Results & Data Results & Data Vital Signs (Past 12 Hours) Vital Signs Temp Pulse Pulse Resp BP Pulse Ox O2 Del Method 11/09/23 15:08 37.0 C 101 H 16 143/90 H 94 Room Air 11/09/23 11:52 37.0 C 103 H 18 147/94 H 96 Room Air 11/09/23 07:48 36.7 C 98 H 18 154/94 H 97 Room Air 11/09/23 07:16 98 H Laboratory Results Short CBC 11/09/23 Range/Units 06:31 WBC 16.57 H (4.8-10.8) K/ul Hgb 10.4 L (14.0-18.0) g/dl Hct 32.3 L (42.0-52.0) % Plt Count 401 H (130-400) K/uL BMP 11/09/23 06:31 Sodium 138 Potassium 4.2 Chloride 107 Carbon Dioxide 26 BUN 16 Creatinine 1.54 H Glucose 130 H Calcium 8.2 L (1) Sepsis Sepsis acute organ dysfunction status: without acute organ dysfunction Sepsis type: sepsis due to unspecified organism Qualified Code(s): A41.9 - Sepsis, unspecified organism
--- NOTE | 2023-11-09 21:43 | Electrocardiogram Report ---
Test Reason : Blood Pressure : / mmHG Vent. Rate : 098 BPM Atrial Rate : 098 BPM P-R Int : 174 ms QRS Dur : 090 ms QT Int : 362 ms P-R-T Axes : 027 -11 037 degrees QTc Int : 462 ms Normal sinus rhythm Normal ECG When compared with ECG of 31-JAN-2023 20:04, No significant change was found Confirmed by Erwin Boggs ([id number]) on 11/09/2023 9:43:23 PM Referred By: REFERRED SELF Confirmed By:Erwin Boggs
[2023-11-10 06:12] LABS: Hematocrit (blood only) 33.1 % (42.0-52.0); Hemoglobin 10.5 g/dl (14.0-18.0); Mean Corpuscular Hemoglobin 27.2 pg (25.0-34.0); Mean Corpuscular Hgb Conc 31.7 g/dL (32.0-36.0); Mean Corpuscular Volume 85.8 fL (80.0-100.0); Mean Platelet Volume 11.1 fL (9.4-12.4); Platelet Count 449 K/uL (130-400); RDW Coefficient of Variation 13.8 % (11.5-14.5); RDW Standard Deviation 42.7 fL (36.4-46.3); Red Blood Count 3.86 M/uL (4.70-6.10); White Blood Count 14.68 K/ul (4.8-10.8)
[2023-11-10 06:19] LABS: BUN Creatinine Ratio 11.6 (10-20); Calcium 8.3 mg/dl (8.6-10.3); Creatinine Clr Calc Pharmacy 68.7 ml/min; Est GFR (African American) 65.4 ml/min; Est GFR (Non-African American) 56.5 ml/min; Potassium 4.1 mmol/L (3.5-5.1)
--- NOTE | 2023-11-10 17:07 | Hospitalist Progress Note ---
Date of Service November 10, 2023 Assessment & Plan (1) Sepsis: Plan: Severe sepsis Complicated urinary tract infection Likely secondary to Medrano catheter H/O B/L hydronephrosis/obstructive uropathy with indwelling Medrano catheter Urinary retention --CT ABD:Medrano catheter in an underdistended bladder limits evaluation. Please correlate with urinalysis to evaluate for cystitis. Cholelithiasis. No acute traumatic abnormality. -- Urine culture --positive for Citrobacter and Pseudomonas --Blood cultures pending Continue IV cefepime Appreciate urology input Continue Medrano catheter Will need follow-up with urology on discharge PT OT recommends rehab placement Will give IV fluids today given orthostatic hypotension Plan to discharge to rehab facility as able Acute Kidney Injury Cr:2.14>1.6 Continue IV fluids Avoid nephrotoxic agents as able Monitor renal function Metformin, Jardiance were discontinued on prior admission as recommended by nephrology Needs follow-up with nephrology on discharge per further workup for proteinuria Will discuss w/ nephro regarding labile BP, orthostatics, proteinuria Cr 1.5 today Obstipation No signs of bowel obstruction on imaging Continue bowel regimen Hypertension Antihypertensives held due to low BP and orthostatic hypotension Continue metoprolol with holding parameters Added teds Limited use of antihypertensives given significant orthostatic hypotension Monitor BP, will further discuss w/ nephro Recurrent falls Ambulatory dysfunction Refused to be discharged to rehab last admission Currently agreeable to go to rehab Fall precautions PT OT--Recommends Rehab Chronic leukocytosis Was evaluated by hematology in the past Monitor CBC Leukocytosis trending down Impacted cerumen Continue Debrox Advised to follow-up with ENT as outpatient CAD S/O POLY in 06/2022 Ischemic CAD 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 Yasmany Merlos continue ASA, statin, metoprolol, Plavix REJI inhibitor discontinued last admission due to SAMANTHA DM II HbA1c 7.9 on Trulicity Metformin, Jardiance discontinued last admission due to worsening renal function Continue insulin while hospitalized Monitor BGs Bipolar depression MED continue Cymbalta, Wellbutrin, Buspar, Klonopin Hyperlipidemia on statin Diabetic neuropathy continue gabapentin Follows [facility] neurology DVT Px: Heparin SQ Code Status Full code Disposition Rehab as able Admission and Anticipated Discharge Date Admission Date: November 06, 2023 Subjective Patient is seen and examined at bedside No new complaints Remains orthostatic today however BP now elevated Denies any chest pain, dyspnea Review of Systems Review of Systems: All systems reviewed & are unremarkable except as noted in Subjective Physical Exam Physical Exam: General Appearance:Moderately built and nourished, M in NAD Head: NC/AT Eyes: normal inspection, EOMI Neck: supple Respiratory/Chest: Normal breath sounds, CTA, No accessory muscle use Cardiovascular: S1, S2, No murmur Abdomen/GI:Soft, Non tender, Bowel sounds present Extremities/Musculoskeletal:normal inspection, no edema Neurologic/Psych:AAOX3, grossly no focal neurological deficits Skin: warm, dry, +tattoos Results & Data Results & Data Vital Signs (Past 12 Hours) Vital Signs Temp Pulse Pulse Resp BP Pulse Ox O2 Del Method 11/10/23 15:13 36.9 C 91 H 17 162/111 H 98 Room Air 11/10/23 13:55 95 H 11/10/23 10:54 37.2 C 94 H 19 135/83 96 Room Air 11/10/23 07:24 37.0 C 92 H 18 161/112 H 96 Room Air 11/10/23 06:03 91 H Laboratory Results 11/10/23 11/10/23 11/10/23 Range/Units 12:17 08:13 05:25 WBC 14.68 H (4.8-10.8) K/ul RBC 3.86 L (4.70-6.10) M/uL Hgb 10.5 L (14.0-18.0) g/dl Hct 33.1 L (42.0-52.0) % MCV 85.8 (80.0-100.0) fL MCH 27.2 (25.0-34.0) pg MCHC 31.7 L (32.0-36.0) g/dL RDW Std Deviation 42.7 (36.4-46.3) fL RDW Coeff of Pancho 13.8 (11.5-14.5) % Plt Count 449 H (130-400) K/uL MPV 11.1 (9.4-12.4) fL Sodium 139 (136-145) mmol/L Potassium 4.1 (3.5-5.1) mmol/L Chloride 107 (98-107) mmol/L Carbon Dioxide 24 (21-32) mmol/L Anion Gap 8 (3-11) BUN 17 (6-23) mg/dl Creatinine 1.46 H (0.6-1.4) mg/dl Est Cr Clr Drug Dosing 68.7 ml/min Est GFR ( Amer) 65.4 ml/min Est GFR (Non-Af Amer) 56.5 ml/min BUN/Creatinine Ratio 11.6 (10-20) Glucose 123 H (70-99(Fasting)) mg/dl POC Glucose 157 H 148 H (70-99) mg/dl Calcium 8.3 L (8.6-10.3) mg/dl 11/09/23 11/09/23 Range/Units 19:53 17:22 WBC (4.8-10.8) K/ul RBC (4.70-6.10) M/uL Hgb (14.0-18.0) g/dl Hct (42.0-52.0) % MCV (80.0-100.0) fL MCH (25.0-34.0) pg MCHC (32.0-36.0) g/dL RDW Std Deviation (36.4-46.3) fL RDW Coeff of Pancho (11.5-14.5) % Plt Count (130-400) K/uL MPV (9.4-12.4) fL Sodium (136-145) mmol/L Potassium (3.5-5.1) mmol/L Chloride (98-107) mmol/L Carbon Dioxide (21-32) mmol/L Anion Gap (3-11) BUN (6-23) mg/dl Creatinine (0.6-1.4) mg/dl Est Cr Clr Drug Dosing ml/min Est GFR ( Amer) ml/min Est GFR (Non-Af Amer) ml/min BUN/Creatinine Ratio (10-20) Glucose (70-99(Fasting)) mg/dl POC Glucose 89 144 H (70-99) mg/dl Calcium (8.6-10.3) mg/dl Medications Administered Current Inpatient Medications Acetaminophen (Acetaminophen 325 Mg Tab) 650 mg PO QID PRN PRN Reason: pain/fever Stop: 12/07/23 02:04 Last Admin: 11/07/23 07:26 Dose: 650 mg Amlodipine Besylate (Amlodipine Besylate 5 Mg Tab) 5 mg PO DAILY MAE Stop: 12/10/23 16:44 Aspirin (Aspirin 81 Mg Ectab) 81 mg PO QAM [facility] Stop: 12/07/23 08:59 Last Admin: 11/10/23 07:59 Dose: 81 mg Atorvastatin Calcium (Atorvastatin 40 Mg Tab) 40 mg PO QAM [facility] Stop: 12/07/23 08:59 Last Admin: 11/10/23 07:59 Dose: 40 mg Bupropion HCl (Bupropion Xl 150 Mg Tabcr) 450 mg PO QAM [facility] Stop: 12/07/23 08:59 Last Admin: 11/10/23 07:59 Dose: 450 mg Buspirone HCl (Buspirone 5 Mg Tab) 10 mg PO BID [facility] Stop: 12/07/23 08:59 Last Admin: 11/10/23 07:59 Dose: 10 mg Carbamide Peroxide (Carbamide Peroxide 6.5% 15 Ml Btl) 5 drops OTR BID [facility] Stop: 11/11/23 04:54 Last Admin: 11/10/23 08:04 Dose: 5 drops Clonazepam (Clonazepam 0.5 Mg Tab) 0.5 mg PO BID PRN PRN Reason: Anxiety Stop: 12/07/23 02:04 Last Admin: 11/10/23 15:02 Dose: 0.5 mg Clopidogrel Bisulfate (Clopidogrel Bisulfate 75 Mg Tab) 75 mg PO DAILYBL [facility] Stop: 12/07/23 10:29 Last Admin: 11/10/23 10:52 Dose: 75 mg Dextrose (Dextrose 50% 50 Ml Syringe) 25 - 50 ml IV UD PRN; Protocol PRN Reason: Hypoglycemia Protocol Stop: 12/07/23 02:04 Duloxetine HCl (Duloxetine Hcl 60 Mg Cap) 60 mg PO QAM [facility] Stop: 12/07/23 08:59 Last Admin: 11/10/23 07:59 Dose: 60 mg Duloxetine HCl (Duloxetine Hcl 30 Mg Cap) 30 mg PO QAM [facility] Stop: 12/07/23 08:59 Last Admin: 11/10/23 08:00 Dose: 30 mg Gabapentin (Gabapentin 300 Mg Cap) 300 mg PO TID [facility] Stop: 12/07/23 08:59 Last Admin: 11/10/23 14:13 Dose: 300 mg Glucagon (Glucagon For Inj 1 Mg Vial) 1 mg SQ UD PRN; Protocol PRN Reason: Hypoglycemia Protocol Stop: 12/07/23 02:04 Glucose (Glucose 40% Gel 15 Gm Tube) 15 - 30 gm PO UD PRN; Protocol PRN Reason: Hypoglycemia Protocol Stop: 12/07/23 02:04 Glucose (Glucose 10 Tab/Tube) 4 - 8 tab PO UD PRN; Protocol PRN Reason: Hypoglycemia Treatment Stop: 12/07/23 02:04 Heparin Sodium (Porcine) (Heparin Sod 5,000 Unit/0.5 Ml Vial) 5,000 units SQ Q8 MAE Stop: 12/07/23 05:59 Last Admin: 11/10/23 14:14 Dose: 5,000 units Promethazine HCl 6.25 mg/ (Sodium Chloride) 50.25 mls @ 201 mls/hr IV Q6H PRN PRN Reason: Nausea And Vomiting Stop: 12/07/23 02:04 Cefepime HCl 2,000 mg/ Syringe 20 mls @ 5 mls/min IV Q8H MAE; Protocol Stop: 11/17/23 07:59 Last Admin: 11/10/23 15:57 Dose: 5 mls/min Insulin Aspart (Insulin Aspart Per Unit Charge) 0 units SC ACHS [facility] Stop: 12/07/23 02:04 Last Admin: 11/10/23 12:54 Dose: 5 units Metoprolol Succinate (Metoprolol Succ 25mg Ext Rel Tab) 25 mg PO BID [facility] Stop: 12/07/23 20:59 Last Admin: 11/10/23 07:58 Dose: 25 mg Miscellaneous ([place]~Order Awaiting Action) 1 each N/A QS [facility] Stop: 12/07/23 07:59 Last Admin: 11/10/23 15:27 Dose: Not Given Miscellaneous (Carbohydrates For Hypoglycemia ) 15 - 30 gm PO UD PRN PRN Reason: Hypoglycemia Protocol Stop: 12/07/23 02:04 Miscellaneous (Remove Nicoderm Patch) 1 each N/A DAILY@0859 [facility] Stop: 12/08/23 08:58 Last Admin: 11/10/23 08:01 Dose: 1 each Montelukast Sodium (Montelukast Sodium 10 Mg Tablet) 10 mg PO QAM [facility] Stop: 12/07/23 08:59 Last Admin: 11/10/23 08:00 Dose: 10 mg Nicotine (Nicotine 21 Mg/24 Hr Tdsy) 1 patch TD QAM [facility] Stop: 12/07/23 14:59 Last Admin: 11/10/23 08:00 Dose: 1 patch Oxybutynin Chloride (Oxybutynin Chloride Xl 5 Mg Tabcr) [facility] [place]: 12/07/23 08:59 Last Admin: 11/10/23 07:59 Dose: 10 mg Oxycodone HCl (Oxycodone Hcl Ir 5 Mg Tab (Immediate Release)) 5 mg PO Q4H PRN PRN Reason: Pain Stop: 11/21/23 02:04 Last Admin: 11/10/23 15:02 Dose: 5 mg Pantoprazole Sodium (Pantoprazole 40 Mg Tab) [facility] [place]: 12/07/23 08:59 Last Admin: 11/10/23 08:00 Dose: 40 mg Polyethylene Glycol (Polyethylene (Miralax) 17 Gm Pack) 17 gm PO DAILY PRN PRN Reason: Constipation Stop: 12/06/23 23:30 Senna/Docusate Sodium (Docusate Sodium/Senna 50/8.6mg Tab) 1 tab PO [facility] Stop: 12/07/23 08:59 Last Admin: 11/10/23 08:02 Dose: 1 tab Thiamine HCl (Thiamine Hcl 100 Mg Tab) [facility] Stop: 12/07/23 08:59 Last Admin: 11/10/23 08:00 Dose: 100 mg (1) Sepsis Sepsis acute organ dysfunction status: without acute organ dysfunction Sepsis type: sepsis due to unspecified organism Qualified Code(s): A41.9 - Sepsis, unspecified organism
[2023-11-10] MEDS: amLODIPine BESYLATE 5 MG TAB PO SCH (17:56)
[2023-11-11] MEDS: METOPROLOL SUCC 25MG EXT REL TAB PO STA (01:15)
[2023-11-11 05:55] LABS: Hematocrit (blood only) 35.3 % (42.0-52.0); Hemoglobin 11.5 g/dl (14.0-18.0); Mean Corpuscular Hemoglobin 27.3 pg (25.0-34.0); Mean Corpuscular Hgb Conc 32.6 g/dL (32.0-36.0); Mean Corpuscular Volume 83.8 fL (80.0-100.0); Mean Platelet Volume 10.7 fL (9.4-12.4); Platelet Count 436 K/uL (130-400); RDW Coefficient of Variation 13.9 % (11.5-14.5); RDW Standard Deviation 41.9 fL (36.4-46.3); Red Blood Count 4.21 M/uL (4.70-6.10); White Blood Count 16.45 K/ul (4.8-10.8)
[2023-11-11 06:12] LABS: BUN Creatinine Ratio 16.4 (10-20); Calcium 8.9 mg/dl (8.6-10.3); Creatinine Clr Calc Pharmacy 82.2 ml/min; Est GFR (African American) 81.3 ml/min; Est GFR (Non-African American) 70.2 ml/min; Magnesium 1.7 mg/dl (1.7-2.4); Phosphorus 3.1 mg/dl (2.5-4.9)
[2023-11-11] MEDS: METOPROLOL SUCC 50MG EXT REL TAB PO SCH (08:10)
[2023-11-11] MEDS: MAGNESIUM SULFATE / D5W 1 GM/100 ML BAG IV ONE (09:52)
--- NOTE | 2023-11-11 10:06 | Nephrology Consultation ---
Date of Consultation November 11, 2023 Assessment & Plan (1) Orthostatic hypotension dysautonomic syndrome: 5really no good treatment available. use compression stockings. be careful on standing. BP has to be guided by standing BP measurement only even if supine BP is high.\ Stop amlodipine. Add losartan. for now dont want to add florinef or midodrine. (2) Type 2 diabetes mellitus with diabetic neuropathy, unspecified: (3) Sepsis: from urinary source. getting Abx. urology already evaluated. Since he has pierce we can stop the Oxybutynin. (4) Urinary retention: with Chronic Pierce. Likely permanent (5) Proteinuria due to type 2 diabetes mellitus: 16 gm by the ratio with no edema and normal Alb. Not acting like nephrotic syndrome. r/o paraprotein Dz but almost certainly related with Diabetic nephropathy. he has all classic Complications. Add Losartan 50 daily. stop amlodipine to allow some ARB History of Present Illness Reason for Consultation: proteinuria and orthostatic Hypotensison Attending Physician: Po Verma MD History of Present Illness 48/M with many medical issues despite young age. He has CAD with hx of POLY x 2 06/2022, Long standing T2DM, diabetic neuropathy, HTN, HLD, chronic HFrEF, history of ischemic cardiomyopathy, history of left central retinal artery occlusion, bipolar depression, generalized anxiety, history of tobacco abuse who presented to ED at the referral of PCP due to abnormal MRI results. He recently underwent an MRI of his lumbar spine per neurology due to progressing urinary incontinence which showed spinal stenosis, distended bladder and hydronephrosis. Recent confinement October 19 to 2023 for complicated UTI, ARF in the setting of obstructive uropathy with bilateral hydronephrosis. Serum creatinine at discharge last time was 1.8. Patient discharged with Pierce catheter for urinary retention. Creat now is even better at 1.2. has pierce and made 4 liters urine. he has severe neuropathy. Almost no sensation in his feet b/l upto knees. gets lightheaded on standing with super low BP. Currently on Amlo 5 and BB. has 16 gm proteinuria by the ratio but no edema at all. Also Alb normal at 4. No diuretics. ROS--see HPI. 12 systems reviewed otherwise. +ve for urinary frequency and incontinence Physical Exam Physical Exam: GENERAL: apathetic, looks older than stated age, no respiratory distress SKIN: Pallor, warm HEENT: Pale palpebral conjunctivae, no ptosis, dry buccal mucosa NECK : Supple, no JVD CHEST : CTA, no tenderness HEART : RRR, no obvious murmurs ABDOMEN: No distention, nontender EXTREMITIES : No LE swelling/tenderness, no other conspicuous deformities noted NEUROLOGIC : Coherent, no facial asymmetry, no other gross focality Allergies Allergy/AdvReac Type Severity Reaction Status Date / Time adhesive Allergy Intermediate Contact Verified 11/06/23 21:08 dermatitis latex Allergy Mild RASH Verified 11/06/23 21:08 tramadol Allergy Unknown n/v Verified 11/06/23 21:08 Home Medications Medication Instructions Recorded Confirmed Type gabapentin 300 mg capsule 300 mg PO TID 06/16/22 11/06/23 History montelukast 10 mg tablet 10 mg PO QAM 06/16/22 11/06/23 History pantoprazole 40 mg tablet,delayed 40 mg PO QAM 06/16/22 11/06/23 History release aspirin 81 mg tablet,delayed 81 mg PO QAM 01/31/23 11/06/23 History release buspirone 10 mg tablet 10 mg PO BID 01/31/23 11/06/23 History cholecalciferol (vitamin D3) 25 25 mcg PO QDL 01/31/23 11/06/23 History mcg (1,000 unit) capsule (Vitamin D3) duloxetine 60 mg capsule,delayed 60 mg PO QAM 01/31/23 11/06/23 History release empagliflozin 10 mg tablet 10 mg PO QAM 01/31/23 11/06/23 History (Jardiance) amlodipine 5 mg-benazepril 20 mg 1 cap PO DAILY 10/19/23 11/06/23 History capsule atorvastatin 40 mg tablet 40 mg PO QAM 10/19/23 11/06/23 History bupropion HCl 450 mg 24 hr tablet, 450 mg PO QAM 10/19/23 11/06/23 History extended release clonazepam 0.5 mg tablet 0.5 mg PO BID PRN Anxiety 10/19/23 11/06/23 History clopidogrel 75 mg tablet 75 mg PO DAILYBL 10/19/23 11/06/23 History dulaglutide 1.5 mg/0.5 mL 1.5 mg subcut TU 10/19/23 11/06/23 History subcutaneous pen injector (Trulicity) duloxetine 30 mg capsule,delayed 30 mg PO QAM 10/19/23 11/06/23 History release magnesium oxide 400 mg (241.3 mg 400 mg PO QAM 10/19/23 11/06/23 History magnesium) tablet metformin 500 mg tablet,extended 500 mg PO BID 10/19/23 11/06/23 History release 24 hr metoprolol succinate 25 mg 25 mg PO BID 10/19/23 11/06/23 History tablet,extended release 24 hr oxybutynin chloride 10 mg 10 mg PO QAM 10/19/23 11/06/23 History tablet,extended release 24 hr ramelteon 8 mg tablet 8 mg PO HS PRN Sleep 10/19/23 11/06/23 History amlodipine 5 mg tablet 5 mg PO DAILY #30 tabs 10/26/23 11/06/23 Rx lidocaine HCl 2 % mucosal jelly in 0.5 ml EXT BID PRN catheter Pain 10/26/23 11/06/23 Rx applicator #125 mL Patient History Medical History Noncompliance Central retinal artery occlusion, left eye Diabetic peripheral neuropathy Surgical History S/P arthroscopic knee surgery History of dental surgery Family History Other Cancer Diabetes Hypertension Social History Smoking Status: Never smoker Tobacco Type: Smokeless Tobacco (Dip or Chew) Second Hand Exposure: No; Do You Dip or Chew Tobacco: Yes; Hx Alcohol Use: Yes Alcohol type: beer Hx Substance Use: No Preferred Language: Armenian Communication Ability: Effective Chaplain Required: No Beliefs That Will Affect Care: None Current Living Situation: Family Current Living Situation Comment: Lives with parents Feels Safe at Home: Yes Assistive Devices: Cane and Walker Results & Data Vital Signs (Past 12 Hours) Vital Signs Temp Pulse Pulse Resp BP BP Pulse Ox 11/11/23 07:50 37.0 C 95 H 18 145/93 H 97 11/11/23 07:10 94 H 11/11/23 03:48 36.8 C 94 H 18 148/99 H 96 11/11/23 01:15 96 H 160/98 H 11/10/23 23:37 37 C 96 H 18 163/108 H 98 O2 Del Method 11/11/23 07:50 Room Air 11/11/23 07:10 11/11/23 03:48 Room Air 11/11/23 01:15 11/10/23 23:37 Room Air Laboratory Results reviewed Diagnostic Findings reviewed (3) Sepsis Sepsis acute organ dysfunction status: without acute organ dysfunction Sepsis type: sepsis due to unspecified organism Qualified Code(s): A41.9 - Sepsis, unspecified organism
[2023-11-11] MEDS: LOSARTAN POTASSIUM 50 MG TAB PO SCH (13:42)
--- NOTE | 2023-11-11 14:09 | Hospitalist Progress Note ---
Date of Service November 11, 2023 Assessment & Plan (1) Sepsis: Plan: Severe sepsis Complicated urinary tract infection Likely secondary to Medrano catheter H/O B/L hydronephrosis/obstructive uropathy with indwelling Medrano catheter Urinary retention --CT ABD:Medrano catheter in an underdistended bladder limits evaluation. Please correlate with urinalysis to evaluate for cystitis. Cholelithiasis. No acute traumatic abnormality. -- Urine culture --positive for Citrobacter and Pseudomonas --Blood cultures pending Continue IV cefepime Appreciate urology input Continue Medrano catheter Will need follow-up with urology on discharge PT OT recommends rehab placement Plan to discharge to rehab facility as able Acute Kidney Injury Cr:2.14>1.6 received IV fluids Avoid nephrotoxic agents as able Monitor renal function Metformin, Jardiance were discontinued on prior admission as recommended by nephrology Needs follow-up with nephrology on discharge per further workup for proteinuria Will discuss w/ nephro regarding labile BP, orthostatics, proteinuria Cr 1.2 today Orthostatic hypotension - secondary to diabetes - pt has hx of orthostatic hypotension - teds - stop amlodipine, lisinopril, cont. metoprolol, start florinef - discussed w/nephrology Obstipation No signs of bowel obstruction on imaging Continue bowel regimen Hypertension Antihypertensives held due to low BP and orthostatic hypotension Continue metoprolol with holding parameters Added teds Limited use of antihypertensives given significant orthostatic hypotension Monitor BP, discussed w/ nephro as above Recurrent falls Ambulatory dysfunction Refused to be discharged to rehab last admission Currently agreeable to go to rehab Fall precautions PT OT--Recommends Rehab Chronic leukocytosis Was evaluated by hematology in the past Monitor CBC Leukocytosis trending down Impacted cerumen Continue Debrox Advised to follow-up with ENT as outpatient CAD S/O POLY in 06/2022 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 Yasmany Merlos continue ASA, statin, metoprolol, Plavix REJI inhibitor discontinued last admission due to SAMANTHA DM II HbA1c 7.9 on Trulicity Metformin, Jardiance discontinued last admission due to worsening renal function Continue insulin while hospitalized Monitor BGs Bipolar depression MED continue Cymbalta, Wellbutrin, Buspar, Klonopin Hyperlipidemia on statin Diabetic neuropathy continue gabapentin Follows [facility] neurology DVT Px: Heparin SQ Code Status Full code Disposition Rehab as able Admission and Anticipated Discharge Date Admission Date: November 06, 2023 Subjective Patient is seen and examined at bedside No new complaints Remains orthostatic - discussed w/ nephrology BP, proteinuria - will stop amlodipine, lisinopril. At first considered starting losartan, now starting florinef Denies any chest pain, dyspnea, abd. pain Review of Systems Review of Systems: All systems reviewed & are unremarkable except as noted in Subjective Physical Exam Physical Exam: General Appearance:Moderately built and nourished, M in NAD Head: NC/AT Eyes: normal inspection, EOMI Neck: supple Respiratory/Chest: Normal breath sounds, CTA, No accessory muscle use Cardiovascular: S1, S2, No murmur Abdomen/GI:Soft, Non tender, Bowel sounds present Extremities/Musculoskeletal:normal inspection, no edema Neurologic/Psych:AAOX3, grossly no focal neurological deficits Skin: warm, dry, +tattoos Results & Data Results & Data Vital Signs (Past 12 Hours) Vital Signs Temp Pulse Pulse Resp BP Pulse Ox O2 Del Method 11/11/23 07:50 37.0 C 95 H 18 145/93 H 97 Room Air 11/11/23 07:10 94 H 11/11/23 03:48 36.8 C 94 H 18 148/99 H 96 Room Air Laboratory Results 11/11/23 11/11/23 11/11/23 Range/Units 13:00 07:50 05:23 WBC 16.45 H (4.8-10.8) K/ul RBC 4.21 L (4.70-6.10) M/uL Hgb 11.5 L (14.0-18.0) g/dl Hct 35.3 L (42.0-52.0) % MCV 83.8 (80.0-100.0) fL MCH 27.3 (25.0-34.0) pg MCHC 32.6 (32.0-36.0) g/dL RDW Std Deviation 41.9 (36.4-46.3) fL RDW Coeff of Pancho 13.9 (11.5-14.5) % Plt Count 436 H (130-400) K/uL MPV 10.7 (9.4-12.4) fL Sodium 136 (136-145) mmol/L Potassium 4.0 (3.5-5.1) mmol/L Chloride 106 (98-107) mmol/L Carbon Dioxide 22 (21-32) mmol/L Anion Gap 8 (3-11) BUN 20 (6-23) mg/dl Creatinine 1.22 (0.6-1.4) mg/dl Est Cr Clr Drug Dosing 82.2 ml/min Est GFR ( Amer) 81.3 ml/min Est GFR (Non-Af Amer) 70.2 ml/min BUN/Creatinine Ratio 16.4 (10-20) Glucose 140 H (70-99(Fasting)) mg/dl POC Glucose 150 H 140 H (70-99) mg/dl Calcium 8.9 (8.6-10.3) mg/dl Phosphorus 3.1 (2.5-4.9) mg/dl Magnesium 1.7 (1.7-2.4) mg/dl 11/10/23 11/10/23 Range/Units 20:08 17:18 WBC (4.8-10.8) K/ul RBC (4.70-6.10) M/uL Hgb (14.0-18.0) g/dl Hct (42.0-52.0) % MCV (80.0-100.0) fL MCH (25.0-34.0) pg MCHC (32.0-36.0) g/dL RDW Std Deviation (36.4-46.3) fL RDW Coeff of Pancho (11.5-14.5) % Plt Count (130-400) K/uL MPV (9.4-12.4) fL Sodium (136-145) mmol/L Potassium (3.5-5.1) mmol/L Chloride (98-107) mmol/L Carbon Dioxide (21-32) mmol/L Anion Gap (3-11) BUN (6-23) mg/dl Creatinine (0.6-1.4) mg/dl Est Cr Clr Drug Dosing ml/min Est GFR ( Amer) ml/min Est GFR (Non-Af Amer) ml/min BUN/Creatinine Ratio (10-20) Glucose (70-99(Fasting)) mg/dl POC Glucose 134 H 163 H (70-99) mg/dl Calcium (8.6-10.3) mg/dl Phosphorus (2.5-4.9) mg/dl Magnesium (1.7-2.4) mg/dl Medications Administered Current Inpatient Medications Acetaminophen (Acetaminophen 325 Mg Tab) 650 mg PO QID PRN PRN Reason: pain/fever Stop: 12/07/23 02:04 Last Admin: 11/07/23 07:26 Dose: 650 mg Aspirin (Aspirin 81 Mg Ectab) [facility] [place] Stop: 12/07/23 08:59 Last Admin: 11/11/23 08:11 Dose: 81 mg Atorvastatin Calcium (Atorvastatin 40 Mg Tab) [facility] [place] Stop: 12/07/23 08:59 Last Admin: 11/11/23 08:10 Dose: 40 mg Bupropion HCl (Bupropion Xl 150 Mg Tabcr) 450 mg PO [facility] Stop: 12/07/23 08:59 Last Admin: 11/11/23 08:10 Dose: 450 mg Buspirone HCl (Buspirone 5 Mg Tab) 10 mg PO BID [facility] Stop: 12/07/23 08:59 Last Admin: 11/11/23 08:10 Dose: 10 mg Clonazepam (Clonazepam 0.5 Mg Tab) 0.5 mg PO BID PRN PRN Reason: Anxiety Stop: 12/07/23 02:04 Last Admin: 11/10/23 15:02 Dose: 0.5 mg Clopidogrel Bisulfate (Clopidogrel Bisulfate 75 Mg Tab) 75 mg PO DAILYBL [facility] Stop: 12/07/23 10:29 Last Admin: 11/11/23 08:12 Dose: 75 mg Dextrose (Dextrose 50% 50 Ml Syringe) 25 - 50 ml IV UD PRN; Protocol PRN Reason: Hypoglycemia Protocol Stop: 12/07/23 02:04 Duloxetine HCl (Duloxetine Hcl 60 Mg Cap) [facility] [place] Stop: 12/07/23 08:59 Last Admin: 11/11/23 08:11 Dose: 60 mg Duloxetine HCl (Duloxetine Hcl 30 Mg Cap) 30 mg PO QAM [facility] Stop: 12/07/23 08:59 Last Admin: 11/11/23 08:11 Dose: 30 mg Gabapentin (Gabapentin 300 Mg Cap) 300 mg PO TID [facility] Stop: 12/07/23 08:59 Last Admin: 11/11/23 13:05 Dose: 300 mg Glucagon (Glucagon For Inj 1 Mg Vial) 1 mg SQ UD PRN; Protocol PRN Reason: Hypoglycemia Protocol Stop: 12/07/23 02:04 Glucose (Glucose 40% Gel 15 Gm Tube) 15 - 30 gm PO UD PRN; Protocol PRN Reason: Hypoglycemia Protocol Stop: 12/07/23 02:04 Glucose (Glucose 10 Tab/Tube) 4 - 8 tab PO UD PRN; Protocol PRN Reason: Hypoglycemia Treatment Stop: 12/07/23 02:04 Heparin Sodium (Porcine) (Heparin Sod 5,000 Unit/0.5 Ml Vial) 5,000 units SQ Q8 [facility] Stop: 12/07/23 05:59 Last Admin: 11/11/23 13:05 Dose: 5,000 units Promethazine HCl 6.25 mg/ (Sodium Chloride) 50.25 mls @ 201 mls/hr IV Q6H PRN PRN Reason: Nausea And Vomiting Stop: 12/07/23 02:04 Cefepime HCl 2,000 mg/ Syringe 20 mls @ 5 mls/min IV Q8H [facility]; Protocol Stop: 11/17/23 07:59 Last Admin: 11/11/23 09:07 Dose: 5 mls/min Insulin Aspart (Insulin Aspart Per Unit Charge) 0 units SC ACHS [facility] Stop: 12/07/23 02:04 Last Admin: 11/11/23 13:04 Dose: 4 units Losartan Potassium (Losartan Potassium 50 Mg Tab) 50 mg PO QAM [facility] Stop: 12/11/23 10:14 Last Admin: 11/11/23 13:42 Dose: Not Given Metoprolol Succinate (Metoprolol Succ 50mg Ext Rel Tab) 50 mg PO BID [facility] Stop: 12/11/23 08:59 Last Admin: 11/11/23 08:10 Dose: 50 mg Miscellaneous ([place]~Order Awaiting Action) 1 each N/A QS [facility] Stop: 12/07/23 07:59 Last Admin: 11/11/23 08:13 Dose: Not Given Miscellaneous (Carbohydrates For Hypoglycemia ) 15 - 30 gm PO UD PRN PRN Reason: Hypoglycemia Protocol Stop: 12/07/23 02:04 Miscellaneous (Remove Nicoderm Patch) 1 each N/A DAILY@0859 [facility] Stop: 12/08/23 08:58 Last Admin: 11/11/23 08:13 Dose: 1 each Montelukast Sodium (Montelukast Sodium 10 Mg Tablet) 10 mg PO [facility] Stop: 12/07/23 08:59 Last Admin: 11/11/23 08:11 Dose: 10 mg Nicotine (Nicotine 21 Mg/24 Hr Tdsy) 1 patch TD [facility] Stop: 12/07/23 14:59 Last Admin: 11/11/23 08:12 Dose: 1 patch Oxybutynin Chloride (Oxybutynin Chloride Xl 5 Mg Tabcr) 10 mg PO [facility] Stop: 12/07/23 08:59 Last Admin: 11/11/23 08:10 Dose: 10 mg Oxycodone HCl (Oxycodone Hcl Ir 5 Mg Tab (Immediate Release)) 5 mg PO Q4H PRN PRN Reason: Pain Stop: 11/21/23 02:04 Last Admin: 11/11/23 13:36 Dose: 5 mg Pantoprazole Sodium (Pantoprazole 40 Mg Tab) 40 mg PO [facility] Stop: 12/07/23 08:59 Last Admin: 11/11/23 08:11 Dose: 40 mg Polyethylene Glycol (Polyethylene (Miralax) 17 Gm Pack) 17 gm PO DAILY PRN PRN Reason: Constipation Stop: 12/06/23 23:30 Senna/Docusate Sodium (Docusate Sodium/Senna 50/8.6mg Tab) 1 tab PO [facility] Stop: 12/07/23 08:59 Last Admin: 11/11/23 08:18 Dose: 1 tab Thiamine HCl (Thiamine Hcl 100 Mg Tab) 100 mg PO [facility] Stop: 12/07/23 08:59 Last Admin: 11/11/23 08:10 Dose: 100 mg (1) Sepsis Sepsis acute organ dysfunction status: without acute organ dysfunction Sepsis type: sepsis due to unspecified organism Qualified Code(s): A41.9 - Sepsis, unspecified organism
[2023-11-11] MEDS: FLUDROCORTISONE ACETATE 0.1 MG TAB PO SCH (17:15)
[2023-11-12 06:24] LABS: Hematocrit (blood only) 34.3 % (42.0-52.0); Hemoglobin 11.3 g/dl (14.0-18.0); Mean Corpuscular Hemoglobin 27.4 pg (25.0-34.0); Mean Corpuscular Hgb Conc 32.9 g/dL (32.0-36.0); Mean Corpuscular Volume 83.3 fL (80.0-100.0); Mean Platelet Volume 10.9 fL (9.4-12.4); Platelet Count 473 K/uL (130-400); RDW Coefficient of Variation 14.3 % (11.5-14.5); RDW Standard Deviation 42.5 fL (36.4-46.3); Red Blood Count 4.12 M/uL (4.70-6.10); White Blood Count 18.05 K/ul (4.8-10.8)
[2023-11-12 06:35] LABS: BUN Creatinine Ratio 18.2 (10-20); Calcium 9.4 mg/dl (8.6-10.3); Creatinine Clr Calc Pharmacy 67.7 ml/min; Est GFR (African American) 64.4 ml/min; Est GFR (Non-African American) 55.5 ml/min; Magnesium 1.8 mg/dl (1.7-2.4); Phosphorus 3.5 mg/dl (2.5-4.9); Potassium 4.3 mmol/L (3.5-5.1)
--- NOTE | 2023-11-12 09:38 | Nephrology Progress Note ---
Date of Service November 12, 2023 Assessment & Plan Admission and Anticipated Discharge Date Admission Date: November 06, 2023 Subjective Assessment & Plan (1) Orthostatic hypotension dysautonomic syndrome: Really no good treatment available. Use compression stockings. Be careful on standing. BP has to be guided by standing BP measurement only even if supine BP is high. There is no way treat hypotension and hypertension at the same time Stop amlodipine. wanted to use some Losartan for proteinuria but his Standing BP is dangerously low. Cannot use. Ask Cardiology about metoprolol also. continue or stop ? Add florinef 0.1 bid. Add Midodrine 5 bid. Thigh high compression stockings. Other than this really no good treatment. Can be discharged if patient wishes as not much more can be achieved by inpt (2) Type 2 diabetes mellitus with diabetic neuropathy, unspecified: (3) Sepsis: from urinary source. getting Abx. urology already evaluated. Since he has pierce we can stop the Oxybutynin. (4) Urinary retention: with Chronic Pierce. Likely permanent (5) Proteinuria due to type 2 diabetes mellitus: 16 gm by the ratio with no edema and normal Alb. Not acting like nephrotic syndrome. r/o paraprotein Dz but almost certainly related with Diabetic nephropathy. he has all classic Complications. S---BP drops to very low with symptoms on Standing. Physical Exam Physical Exam: GENERAL: apathetic, looks older than stated age, no respiratory distress SKIN: Pallor, warm HEENT: Pale palpebral conjunctivae, no ptosis, dry buccal mucosa NECK : Supple, no JVD CHEST : CTA, no tenderness HEART : RRR, no obvious murmurs ABDOMEN: No distention, nontender EXTREMITIES : No LE swelling/tenderness, no other conspicuous deformities noted NEUROLOGIC : Coherent, no facial asymmetry, no other gross focality Results & Data Vital Signs (Past 12 Hours) Vital Signs Temp Pulse Pulse Resp BP BP Pulse Ox 11/12/23 07:01 90 11/12/23 04:43 87 129/81 11/12/23 04:14 36.6 C 93 H 18 83/51 L 98 11/11/23 23:31 37 C 93 H 18 134/85 97 11/11/23 23:11 92 H O2 Del Method 11/12/23 07:01 11/12/23 04:43 11/12/23 04:14 Room Air 11/11/23 23:31 Room Air 11/11/23 23:11
--- NOTE | 2023-11-12 10:04 | Hospitalist Progress Note ---
Date of Service November 12, 2023 Assessment & Plan (1) Sepsis: Plan: Severe sepsis Complicated urinary tract infection Likely secondary to Pierce catheter H/O B/L hydronephrosis/obstructive uropathy with indwelling Pierce catheter Urinary retention --CT ABD:Pierce catheter in an underdistended bladder limits evaluation. Please correlate with urinalysis to evaluate for cystitis. Cholelithiasis. No acute traumatic abnormality. -- Urine culture --positive for Citrobacter and Pseudomonas --Blood cultures negat. in 48 hrs Continue IV cefepime Appreciate urology input Continue Pierce catheter Will need follow-up with urology on discharge PT OT recommends rehab placement Plan to discharge to rehab facility as able 11/11 Discussed w/ urology WBC 18 K - will exchange Pierce (placed on 10/18) - and will repeat urine cultx Acute Kidney Injury Cr:2.14>1.6 received IV fluids Avoid nephrotoxic agents as able Monitor renal function Metformin, Jardiance were discontinued on prior admission as recommended by nephrology Nephrology consulted - regarding labile BP, orthostatics, proteinuria - will need outpt follow up Cr 1.4 today Orthostatic hypotension - secondary to diabetes - pt has hx of orthostatic hypotension - teds - stopped amlodipine, lisinopril, cont. metoprolol, started florinef and midodrine - discussed w/nephrology Obstipation No signs of bowel obstruction on imaging Continue bowel regimen Hypertension Antihypertensives held due to low BP and orthostatic hypotension Continue metoprolol with holding parameters Added teds Limited use of antihypertensives given significant orthostatic hypotension Monitor BP, discussed w/ nephro as above Recurrent falls Ambulatory dysfunction Refused to be discharged to rehab last admission Currently agreeable to go to rehab Fall precautions PT OT--Recommends Rehab Chronic leukocytosis Was evaluated by hematology in the past Monitor CBC Leukocytosis flactuates , now 18 K - will change pierce as above, repeat cultx Impacted cerumen Continue Debrox Advised to follow-up with ENT as outpatient CAD S/O OPLY in 06/2022 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 Jade continue ASA, statin, metoprolol, Plavix REJI inhibitor discontinued last admission due to SAMANTHA DM II HbA1c 7.9 on Trulicity Metformin, Jardiance discontinued last admission due to worsening renal function Continue insulin while hospitalized Monitor BGs Bipolar depression MED continue Cymbalta, Wellbutrin, Buspar, Klonopin Hyperlipidemia on statin Diabetic neuropathy continue gabapentin Follows [facility] neurology DVT Px: Heparin SQ Code Status Full code Disposition Rehab as able Admission and Anticipated Discharge Date Admission Date: November 06, 2023 Subjective Patient seen in follow up of UTI, orthostatic hypotension No new complaints Remains orthostatic - discussed w/ nephrology (Dr. Price) BP, proteinuria - starting florinef, midodrine Denies any chest pain, dyspnea, abd. pain WBC up at 18K - discussed w/ urology - last time Pierce placed 10/18 - will exchange Pierce and will repeat urine cultx Review of Systems Review of Systems: All systems reviewed & are unremarkable except as noted in Subjective Physical Exam Physical Exam: General Appearance: Moderately built and nourished M in NAD Head: NC/AT Eyes: normal inspection, EOMI Neck: supple Respiratory/Chest: Normal breath sounds, CTA, No accessory muscle use Cardiovascular: S1, S2, No murmur Abdomen/GI:Soft, Non tender, Bowel sounds present Extremities/Musculoskeletal:normal inspection, no edema Neurologic/Psych:AAOX3, grossly no focal neurological deficits Skin: warm, dry, +tattoos Results & Data Results & Data Vital Signs (Past 12 Hours) Vital Signs Temp Pulse Pulse Resp BP BP Pulse Ox 11/12/23 07:01 90 11/12/23 04:43 87 129/81 11/12/23 04:14 36.6 C 93 H 18 83/51 L 98 11/11/23 23:31 37 C 93 H 18 134/85 97 11/11/23 23:11 92 H O2 Del Method 11/12/23 07:01 11/12/23 04:43 11/12/23 04:14 Room Air 11/11/23 23:31 Room Air 11/11/23 23:11 Laboratory Results 11/12/23 11/12/23 11/11/23 Range/Units 08:16 05:42 20:25 WBC 18.05 H (4.8-10.8) K/ul RBC 4.12 L (4.70-6.10) M/uL Hgb 11.3 L (14.0-18.0) g/dl Hct 34.3 L (42.0-52.0) % MCV 83.3 (80.0-100.0) fL MCH 27.4 (25.0-34.0) pg MCHC 32.9 (32.0-36.0) g/dL RDW Std Deviation 42.5 (36.4-46.3) fL RDW Coeff of Pancho 14.3 (11.5-14.5) % Plt Count 473 H (130-400) K/uL MPV 10.9 (9.4-12.4) fL Sodium 137 (136-145) mmol/L Potassium 4.3 (3.5-5.1) mmol/L Chloride 105 (98-107) mmol/L Carbon Dioxide 23 (21-32) mmol/L Anion Gap 9 (3-11) BUN 27 H (6-23) mg/dl Creatinine 1.48 H (0.6-1.4) mg/dl Est Cr Clr Drug Dosing 67.7 ml/min Est GFR ( Amer) 64.4 ml/min Est GFR (Non-Af Amer) 55.5 ml/min BUN/Creatinine Ratio 18.2 (10-20) Glucose 182 H (70-99(Fasting)) mg/dl POC Glucose 168 H 115 H (70-99) mg/dl Calcium 9.4 (8.6-10.3) mg/dl Phosphorus 3.5 (2.5-4.9) mg/dl Magnesium 1.8 (1.7-2.4) mg/dl Serum Immunofixation Pending 11/11/23 11/11/23 Range/Units 17:08 13:00 WBC (4.8-10.8) K/ul RBC (4.70-6.10) M/uL Hgb (14.0-18.0) g/dl Hct (42.0-52.0) % MCV (80.0-100.0) fL MCH (25.0-34.0) pg MCHC (32.0-36.0) g/dL RDW Std Deviation (36.4-46.3) fL RDW Coeff of Pancho (11.5-14.5) % Plt Count (130-400) K/uL MPV (9.4-12.4) fL Sodium (136-145) mmol/L Potassium (3.5-5.1) mmol/L Chloride (98-107) mmol/L Carbon Dioxide (21-32) mmol/L Anion Gap (3-11) BUN (6-23) mg/dl Creatinine (0.6-1.4) mg/dl Est Cr Clr Drug Dosing ml/min Est GFR ( Amer) ml/min Est GFR (Non-Af Amer) ml/min BUN/Creatinine Ratio (10-20) Glucose (70-99(Fasting)) mg/dl POC Glucose 120 H 150 H (70-99) mg/dl Calcium (8.6-10.3) mg/dl Phosphorus (2.5-4.9) mg/dl Magnesium (1.7-2.4) mg/dl Serum Immunofixation Medications Administered Current Inpatient Medications Acetaminophen (Acetaminophen 325 Mg Tab) 650 mg PO QID PRN PRN Reason: pain/fever Stop: 12/07/23 02:04 Last Admin: 11/07/23 07:26 Dose: 650 mg Aspirin (Aspirin 81 Mg Ectab) [facility] [place] [place]: 12/07/23 08:59 Last Admin: 11/12/23 08:01 Dose: 81 mg Atorvastatin Calcium (Atorvastatin 40 Mg Tab) [facility] [place] Stop: 12/07/23 08:59 Last Admin: 11/12/23 08:00 Dose: 40 mg Bupropion HCl (Bupropion Xl 150 Mg Tabcr) 450 mg PO QAM [facility] Stop: 12/07/23 08:59 Last Admin: 11/12/23 08:01 Dose: 450 mg Buspirone HCl (Buspirone 5 Mg Tab) 10 mg PO BID [facility] Stop: 12/07/23 08:59 Last Admin: 11/12/23 07:59 Dose: 10 mg Clonazepam (Clonazepam 0.5 Mg Tab) 0.5 mg PO BID PRN PRN Reason: Anxiety Stop: 12/07/23 02:04 Last Admin: 11/10/23 15:02 Dose: 0.5 mg Clopidogrel Bisulfate (Clopidogrel Bisulfate 75 Mg Tab) 75 mg PO DAILYBL [facility] Stop: 12/07/23 10:29 Last Admin: 11/12/23 08:00 Dose: 75 mg Dextrose (Dextrose 50% 50 Ml Syringe) 25 - 50 ml IV UD PRN; Protocol PRN Reason: Hypoglycemia Protocol Stop: 12/07/23 02:04 Duloxetine HCl (Duloxetine Hcl 60 Mg Cap) 60 mg PO QAM [facility] Stop: 12/07/23 08:59 Last Admin: 11/12/23 08:02 Dose: 60 mg Duloxetine HCl (Duloxetine Hcl 30 Mg Cap) 30 mg PO QAM [facility] Stop: 12/07/23 08:59 Last Admin: 11/12/23 08:00 Dose: 30 mg Fludrocortisone Acetate (Fludrocortisone Acetate 0.1 Mg Tab) 0.1 mg PO QAM [facility] Stop: 12/11/23 16:29 Last Admin: 11/12/23 08:03 Dose: 0.1 mg Gabapentin (Gabapentin 300 Mg Cap) 300 mg PO TID [facility] Stop: 12/07/23 08:59 Last Admin: 11/12/23 07:58 Dose: 300 mg Glucagon (Glucagon For Inj 1 Mg Vial) 1 mg SQ UD PRN; Protocol PRN Reason: Hypoglycemia Protocol Stop: 12/07/23 02:04 Glucose (Glucose 40% Gel 15 Gm Tube) 15 - 30 gm PO UD PRN; Protocol PRN Reason: Hypoglycemia Protocol Stop: 12/07/23 02:04 Glucose (Glucose 10 Tab/Tube) 4 - 8 tab PO UD PRN; Protocol PRN Reason: Hypoglycemia Treatment Stop: 12/07/23 02:04 Heparin Sodium (Porcine) (Heparin Sod 5,000 Unit/0.5 Ml Vial) 5,000 units SQ Q8 [facility] Stop: 12/07/23 05:59 Last Admin: 11/12/23 06:07 Dose: 5,000 units Promethazine HCl 6.25 mg/ (Sodium Chloride) 50.25 mls @ 201 mls/hr IV Q6H PRN PRN Reason: Nausea And Vomiting Stop: 12/07/23 02:04 Cefepime HCl 2,000 mg/ Syringe 20 mls @ 5 mls/min IV Q8H [facility]; Protocol Stop: 11/17/23 07:59 Last Admin: 11/12/23 08:06 Dose: 5 mls/min Insulin Aspart (Insulin Aspart Per Unit Charge) 0 units SC ACHS [facility] Stop: 12/07/23 02:04 Last Admin: 11/12/23 08:35 Dose: 7 units Metoprolol Succinate (Metoprolol Succ 50mg Ext Rel Tab) 50 mg PO BID [facility] Stop: 12/11/23 08:59 Last Admin: 11/12/23 07:59 Dose: 50 mg Miscellaneous ([place]~Order Awaiting Action) 1 each N/A QS [facility] Stop: 12/07/23 07:59 Last Admin: 11/12/23 08:02 Dose: Not Given Miscellaneous (Carbohydrates For Hypoglycemia ) 15 - 30 gm PO UD PRN PRN Reason: Hypoglycemia Protocol Stop: 12/07/23 02:04 Miscellaneous (Remove Nicoderm Patch) 1 each N/A DAILY@0859 [facility] Stop: 12/08/23 08:58 Last Admin: 11/12/23 08:30 Dose: 1 each Montelukast Sodium (Montelukast Sodium 10 Mg Tablet) [facility] [place] Stop: 12/07/23 08:59 Last Admin: 11/12/23 08:00 Dose: 10 mg Nicotine (Nicotine 21 Mg/24 Hr Tdsy) 1 patch TD [facility] Stop: 12/07/23 14:59 Last Admin: 11/12/23 08:03 Dose: 1 patch Oxybutynin Chloride (Oxybutynin Chloride Xl 5 Mg Tabcr) 10 mg PO [facility] Stop: 12/07/23 08:59 Last Admin: 11/12/23 08:00 Dose: 10 mg Oxycodone HCl (Oxycodone Hcl Ir 5 Mg Tab (Immediate Release)) 5 mg PO Q4H PRN PRN Reason: Pain Stop: 11/21/23 02:04 Last Admin: 11/11/23 21:15 Dose: 5 mg Pantoprazole Sodium (Pantoprazole 40 Mg Tab) [facility] [place] Stop: 12/07/23 08:59 Last Admin: 11/12/23 07:59 Dose: 40 mg Polyethylene Glycol (Polyethylene (Miralax) 17 Gm Pack) 17 gm PO DAILY [facility] Stop: 12/13/23 08:59 Senna/Docusate Sodium (Docusate Sodium/Senna 50/8.6mg Tab) 1 tab PO QAM [facility] Stop: 12/07/23 08:59 Last Admin: 11/12/23 08:06 Dose: 1 tab Thiamine HCl (Thiamine Hcl 100 Mg Tab) [facility] [place] Stop: 12/07/23 08:59 Last Admin: 11/12/23 08:01 Dose: 100 mg (1) Sepsis Sepsis acute organ dysfunction status: without acute organ dysfunction Sepsis type: sepsis due to unspecified organism Qualified Code(s): A41.9 - Sepsis, unspecified organism
[2023-11-12] MEDS: MIDODRINE HCL 2.5 MG TAB PO SCH (11:13)
[2023-11-12 11:44] LABS: Appearance Urine Cloudy (Clear); Bacteria Urine Automated None Seen (None Seen); Bilirubin Urine Negative (Negative); Blood Urine 1+ (Negative); Color Urine Yellow; Epithelial Cell Urine Auto 0-2 /hpf (0-2); Glucose Urine UA 3+ (Negative); Ketones Urine Trace (Negative); Leukocyte Esterase Urine 1+ (Negative); Mucus Urine Present (None Prsent); Nitrite Urine Negative (Negative); Protein Urine 2+ (Negative); Specific Gravity Urine 1.028 (1.000-1.030); Urobilinogen Urine Negative (Negative); WBC Urine Automated >50 /hpf (0-5); pH Urine 5.5 (4.5-7.5)
[2023-11-12 15:11] LABS: 7-Aminoclonaz, Confirm >2000 ng/mL (<25); Hydro-Alp Ur, GC/MS NEGATIVE ng/mL (<25); Hydroxyethylflurazepam, Conf NEGATIVE ng/mL (<50); Hydroxymidazolam Ur, GC/MS NEGATIVE ng/mL (<50); Hydroxytriazolam NEGATIVE ng/mL (<50); Lorazepam, Ur GC/MS NEGATIVE ng/mL (<50); MDA negative; MDEA negative; MDMA (Ecstasy) Urine, Confirm negative; Nordiazepam, Confirm NEGATIVE ng/mL (<50); Oxazepam Ur, GC/MS NEGATIVE ng/mL (<50); Temazepam, Confirm NEGATIVE ng/mL (<50)
[2023-11-13 07:06] LABS: Hematocrit (blood only) 33.8 % (42.0-52.0); Mean Corpuscular Hemoglobin 27.4 pg (25.0-34.0); Mean Corpuscular Hgb Conc 32.5 g/dL (32.0-36.0); Mean Corpuscular Volume 84.3 fL (80.0-100.0); Platelet Count 469 K/uL (130-400); RDW Coefficient of Variation 14.4 % (11.5-14.5); RDW Standard Deviation 43.9 fL (36.4-46.3); Red Blood Count 4.01 M/uL (4.70-6.10); White Blood Count 17.12 K/ul (4.8-10.8)
[2023-11-13 07:20] LABS: Calcium 9.2 mg/dl (8.6-10.3); Creatinine Clr Calc Pharmacy 71.1 ml/min; Est GFR (African American) 68.3 ml/min; Est GFR (Non-African American) 58.9 ml/min; Magnesium 1.8 mg/dl (1.7-2.4); Phosphorus 3.7 mg/dl (2.5-4.9)
--- NOTE | 2023-11-13 07:44 | Hospitalist Progress Note ---
Date of Service November 13, 2023 Assessment & Plan (1) Sepsis: Plan: Severe sepsis Complicated urinary tract infection Likely secondary to Pierce catheter H/O B/L hydronephrosis/obstructive uropathy with indwelling Pierce catheter Urinary retention --CT ABD:Pierce catheter in an underdistended bladder limits evaluation. Please correlate with urinalysis to evaluate for cystitis. Cholelithiasis. No acute traumatic abnormality. -- Urine culture --positive for Citrobacter and Pseudomonas --Blood cultures negat. in 48 hrs Continue IV cefepime Appreciate urology input Continue Pierce catheter Will need follow-up with urology on discharge PT OT recommends rehab placement Plan to discharge to rehab facility as able 11/11 Discussed w/ urology WBC 18 K ->exchanged Pierce (as was originally placed on 10/18) - also repeated urine cultx - currently pending, WBC now 17K Acute Kidney Injury Cr:2.14>1.6 received IV fluids Avoid nephrotoxic agents as able Monitor renal function Metformin, Jardiance were discontinued on prior admission as recommended by nephrology Nephrology consulted - regarding labile BP, orthostatics, proteinuria - will need outpt follow up Cr 1.4 today Orthostatic hypotension - secondary to diabetes - pt has hx of orthostatic hypotension - teds - stopped amlodipine, lisinopril, cont. metoprolol, started florinef and midodrine - discussed w/nephrology Obstipation No signs of bowel obstruction on imaging Continue bowel regimen Hypertension Antihypertensives held due to low BP and orthostatic hypotension Continue metoprolol with holding parameters Added teds Limited use of antihypertensives given significant orthostatic hypotension Monitor BP, discussed w/ nephro as above Recurrent falls Ambulatory dysfunction Refused to be discharged to rehab last admission Currently agreeable to go to rehab Fall precautions PT OT--Recommends Rehab Chronic leukocytosis Was evaluated by hematology in the past Monitor CBC Leukocytosis flactuates , now 18 K ->changed pierce as above, repeat cultx WBC now 17K Impacted cerumen Continue Debrox Advised to follow-up with ENT as outpatient CAD S/O POLY in 06/2022 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 Jade continue ASA, statin, metoprolol, Plavix REJI inhibitor discontinued last admission due to SAMANTHA DM II HbA1c 7.9 on Trulicity Metformin, Jardiance discontinued last admission due to worsening renal function Continue insulin while hospitalized Monitor BGs Bipolar depression MED continue Cymbalta, Wellbutrin, Buspar, Klonopin Hyperlipidemia on statin Diabetic neuropathy continue gabapentin Follows [facility] DVT Px: Heparin SQ Code Status Full code Disposition Rehab as able Admission and Anticipated Discharge Date Admission Date: November 06, 2023 Subjective Patient seen in follow up of UTI, orthostatic hypotension No new complaints Remains orthostatic - discussed w/ nephrology (Dr. Price) BP, proteinuria - started florinef, midodrine Denies any chest pain, dyspnea, abd. pain WBC up at 18K yesterday - and discussed w/ urology - last time Pierce placed 10/18 - exchanged Pierce and repeated urine cultx- currently pending Review of Systems Review of Systems: All systems reviewed & are unremarkable except as noted in Subjective Physical Exam Physical Exam: General Appearance: Moderately built and nourished M in NAD Head: NC/AT Eyes: normal inspection, EOMI Neck: supple Respiratory/Chest: Normal breath sounds, CTA, No accessory muscle use Cardiovascular: S1, S2, No murmur Abdomen/GI:Soft, Non tender, Bowel sounds present Extremities/Musculoskeletal:normal inspection, no edema Neurologic/Psych:AAOX3, grossly no focal neurological deficits Skin: warm, dry, +tattoos Results & Data Results & Data Vital Signs (Past 12 Hours) Vital Signs Temp Pulse Pulse Resp BP Pulse Ox O2 Del Method 11/13/23 03:26 36.5 C 87 16 155/84 H 95 Room Air 11/12/23 23:25 36.6 C 89 18 162/101 H 97 Room Air 11/12/23 22:02 87 11/12/23 20:44 36.5 C 88 18 164/104 H 96 Room Air Laboratory Results 11/13/23 11/12/23 11/12/23 Range/Units 06:26 20:57 17:23 WBC 17.12 H (4.8-10.8) K/ul RBC 4.01 L (4.70-6.10) M/uL Hgb 11.0 L (14.0-18.0) g/dl Hct 33.8 L (42.0-52.0) % MCV 84.3 (80.0-100.0) fL MCH 27.4 (25.0-34.0) pg MCHC 32.5 (32.0-36.0) g/dL RDW Std Deviation 43.9 (36.4-46.3) fL RDW Coeff of Apncho 14.4 (11.5-14.5) % Plt Count 469 H (130-400) K/uL MPV 11.0 (9.4-12.4) fL Sodium 138 (136-145) mmol/L Potassium 4.0 (3.5-5.1) mmol/L Chloride 106 (98-107) mmol/L Carbon Dioxide 24 (21-32) mmol/L Anion Gap 8 (3-11) BUN 31 H (6-23) mg/dl Creatinine 1.41 H (0.6-1.4) mg/dl Est Cr Clr Drug Dosing 71.1 ml/min Est GFR ( Amer) 68.3 ml/min Est GFR (Non-Af Amer) 58.9 ml/min BUN/Creatinine Ratio 22.0 H (10-20) Glucose 162 H (70-99(Fasting)) mg/dl POC Glucose 111 H 157 H (70-99) mg/dl Calcium 9.2 (8.6-10.3) mg/dl Phosphorus 3.7 (2.5-4.9) mg/dl Magnesium 1.8 (1.7-2.4) mg/dl Urine Color Urine Appearance (Clear) Urine pH (4.5-7.5) Ur Specific [place] (1.000-1.030) Urine Protein (Negative) Urine Glucose (UA) (Negative) Urine Ketones (Negative) Urine Blood (Negative) Urine Nitrite (Negative) Urine Bilirubin (Negative) Urine Urobilinogen (Negative) Ur Leukocyte Esterase (Negative) Urine WBC (Auto) (0-5) /hpf Urine RBC (Auto) (0-2) /hpf U Hyaline Cast (Auto) (0-2) /lpf U Epithel Cells (Auto) (0-2) /hpf Urine Bacteria (Auto) (None Seen) Urine Mucus (None Prsent) Urine MDEA MDMA Urine MDMA U OH-Alprazolam Confrm (<25) ng/mL 7-Amino Clonazepam (<25) ng/mL Ur Nordiazepam Confirm (<50) ng/mL U OH-ethylflurazepam (<50) ng/mL U Lorazepam Cnf GC/MS (<50) ng/mL U Oxazepam Confm GC/MS (<50) ng/mL Ur Temazepam Confirm (<50) ng/mL U OH-Triazolam Confirm (<50) ng/mL U OH-Midazolam Confirm (<50) ng/mL Drug Screen Comment 11/12/23 11/12/23 11/12/23 Range/Units 12:25 11:15 08:16 WBC (4.8-10.8) K/ul RBC (4.70-6.10) M/uL Hgb (14.0-18.0) g/dl Hct (42.0-52.0) % MCV (80.0-100.0) fL MCH (25.0-34.0) pg MCHC (32.0-36.0) g/dL RDW Std Deviation (36.4-46.3) fL RDW Coeff of Pancho (11.5-14.5) % Plt Count (130-400) K/uL MPV (9.4-12.4) fL Sodium (136-145) mmol/L Potassium (3.5-5.1) mmol/L Chloride (98-107) mmol/L Carbon Dioxide (21-32) mmol/L Anion Gap (3-11) BUN (6-23) mg/dl Creatinine (0.6-1.4) mg/dl Est Cr Clr Drug Dosing ml/min Est GFR ( Amer) ml/min Est GFR (Non-Af Amer) ml/min BUN/Creatinine Ratio (10-20) Glucose (70-99(Fasting)) mg/dl POC Glucose 129 H 168 H (70-99) mg/dl Calcium (8.6-10.3) mg/dl Phosphorus (2.5-4.9) mg/dl Magnesium (1.7-2.4) mg/dl Urine Color Yellow Urine Appearance Cloudy A (Clear) Urine pH 5.5 (4.5-7.5) Ur Specific [place] 1.028 (1.000-1.030) Urine Protein 2+ H (Negative) Urine Glucose (UA) 3+ H (Negative) Urine Ketones Trace H (Negative) Urine Blood 1+ H (Negative) Urine Nitrite Negative (Negative) Urine Bilirubin Negative (Negative) Urine Urobilinogen Negative (Negative) Ur Leukocyte Esterase 1+ H (Negative) Urine WBC (Auto) >50 H (0-5) /hpf Urine RBC (Auto) 6-10 H (0-2) /hpf U Hyaline Cast (Auto) 11-20 H (0-2) /lpf U Epithel Cells (Auto) 0-2 (0-2) /hpf Urine Bacteria (Auto) None Seen (None Seen) Urine Mucus Present A (None Prsent) Urine MDEA MDMA Urine MDMA U OH-Alprazolam Confrm (<25) ng/mL 7-Amino Clonazepam (<25) ng/mL Ur Nordiazepam Confirm (<50) ng/mL U OH-ethylflurazepam (<50) ng/mL U Lorazepam Cnf GC/MS (<50) ng/mL U Oxazepam Confm GC/MS (<50) ng/mL Ur Temazepam Confirm (<50) ng/mL U OH-Triazolam Confirm (<50) ng/mL U OH-Midazolam Confirm (<50) ng/mL Drug Screen Comment 11/06/23 Range/Units 19:05 WBC (4.8-10.8) K/ul RBC (4.70-6.10) M/uL Hgb (14.0-18.0) g/dl Hct (42.0-52.0) % MCV (80.0-100.0) fL MCH (25.0-34.0) pg MCHC (32.0-36.0) g/dL RDW Std Deviation (36.4-46.3) fL RDW Coeff of Pancho (11.5-14.5) % Plt Count (130-400) K/uL MPV (9.4-12.4) fL Sodium (136-145) mmol/L Potassium (3.5-5.1) mmol/L Chloride (98-107) mmol/L Carbon Dioxide (21-32) mmol/L Anion Gap (3-11) BUN (6-23) mg/dl Creatinine (0.6-1.4) mg/dl Est Cr Clr Drug Dosing ml/min Est GFR ( Amer) ml/min Est GFR (Non-Af Amer) ml/min BUN/Creatinine Ratio (10-20) Glucose (70-99(Fasting)) mg/dl POC Glucose (70-99) mg/dl Calcium (8.6-10.3) mg/dl Phosphorus (2.5-4.9) mg/dl Magnesium (1.7-2.4) mg/dl Urine Color Urine Appearance (Clear) Urine pH (4.5-7.5) Ur Specific [place] (1.000-1.030) Urine Protein (Negative) Urine Glucose (UA) (Negative) Urine Ketones (Negative) Urine Blood (Negative) Urine Nitrite (Negative) Urine Bilirubin (Negative) Urine Urobilinogen (Negative) Ur Leukocyte Esterase (Negative) Urine WBC (Auto) (0-5) /hpf Urine RBC (Auto) (0-2) /hpf U Hyaline Cast (Auto) (0-2) /lpf U Epithel Cells (Auto) (0-2) /hpf Urine Bacteria (Auto) (None Seen) Urine Mucus (None Prsent) Urine MDEA negative MDMA negative Urine MDMA negative U OH-Alprazolam Confrm NEGATIVE (<25) ng/mL 7-Amino Clonazepam >2000 H (<25) ng/mL Ur Nordiazepam Confirm NEGATIVE (<50) ng/mL U OH-ethylflurazepam NEGATIVE (<50) ng/mL U Lorazepam Cnf GC/MS NEGATIVE (<50) ng/mL U Oxazepam Confm GC/MS NEGATIVE (<50) ng/mL Ur Temazepam Confirm NEGATIVE (<50) ng/mL U OH-Triazolam Confirm NEGATIVE (<50) ng/mL U OH-Midazolam Confirm NEGATIVE (<50) ng/mL Drug Screen Comment SEE NOTE Medications Administered Current Inpatient Medications Acetaminophen (Acetaminophen 325 Mg Tab) 650 mg PO QID PRN PRN Reason: pain/fever Stop: 12/07/23 02:04 Last Admin: 11/07/23 07:26 Dose: 650 mg Aspirin (Aspirin 81 Mg Ectab) 81 mg PO [facility] Stop: 12/07/23 08:59 Last Admin: 11/12/23 08:01 Dose: 81 mg Atorvastatin Calcium ([facility] 40 Mg Tab) [facility] [place] Stop: 12/07/23 08:59 Last Admin: 11/12/23 08:00 Dose: 40 mg Bupropion HCl (Bupropion Xl 150 Mg Tabcr) 450 mg PO [facility] Stop: 12/07/23 08:59 Last Admin: 11/12/23 08:01 Dose: 450 mg Buspirone HCl (Buspirone 5 Mg Tab) 10 mg PO BID [facility] Stop: 12/07/23 08:59 Last Admin: 11/12/23 21:21 Dose: 10 mg Clonazepam (Clonazepam 0.5 Mg Tab) 0.5 mg PO BID PRN PRN Reason: Anxiety Stop: 12/07/23 02:04 Last Admin: 11/13/23 01:04 Dose: 0.5 mg Clopidogrel Bisulfate (Clopidogrel Bisulfate 75 Mg Tab) 75 mg PO DAILYBL [facility] Stop: 12/07/23 10:29 Last Admin: 11/12/23 08:00 Dose: 75 mg Dextrose (Dextrose 50% 50 Ml Syringe) 25 - 50 ml IV UD PRN; Protocol PRN Reason: Hypoglycemia Protocol Stop: 12/07/23 02:04 Duloxetine HCl (Duloxetine Hcl 60 Mg Cap) [facility] [place] Stop: 12/07/23 08:59 Last Admin: 11/12/23 08:02 Dose: 60 mg Duloxetine HCl (Duloxetine Hcl 30 Mg Cap) [facility] [place] Stop: 12/07/23 08:59 Last Admin: 11/12/23 08:00 Dose: 30 mg Fludrocortisone Acetate (Fludrocortisone Acetate 0.1 Mg Tab) 0.1 [facility] [place] Stop: 12/11/23 16:29 Last Admin: 11/12/23 08:03 Dose: 0.1 mg Gabapentin (Gabapentin 300 Mg Cap) 300 mg PO TID [facility] Stop: 12/07/23 08:59 Last Admin: 11/12/23 21:21 Dose: 300 mg Glucagon (Glucagon For Inj 1 Mg Vial) 1 mg SQ UD PRN; Protocol PRN Reason: Hypoglycemia Protocol Stop: 12/07/23 02:04 Glucose (Glucose 40% Gel 15 Gm Tube) 15 - 30 gm PO UD PRN; Protocol PRN Reason: Hypoglycemia Protocol Stop: 12/07/23 02:04 Glucose (Glucose 10 Tab/Tube) 4 - 8 tab PO UD PRN; Protocol PRN Reason: Hypoglycemia Treatment Stop: 12/07/23 02:04 Heparin Sodium (Porcine) (Heparin Sod 5,000 Unit/0.5 Ml Vial) 5,000 units SQ Q8 [facility]E Stop: 12/07/23 05:59 Last Admin: 11/13/23 06:01 Dose: 5,000 units Promethazine HCl 6.25 mg/ (Sodium Chloride) 50.25 mls @ 201 mls/hr IV Q6H PRN PRN Reason: Nausea And Vomiting Stop: 12/07/23 02:04 Cefepime HCl 2,000 mg/ Syringe 20 mls @ 5 mls/min IV Q8H [facility]; Protocol Stop: 11/17/23 07:59 Last Admin: 11/13/23 00:12 Dose: 5 mls/min Insulin Aspart (Insulin Aspart Per Unit Charge) 0 units SC ACHS [facility] Stop: 12/07/23 02:04 Last Admin: 11/12/23 21:11 Dose: Not Given Metoprolol Succinate (Metoprolol Succ 50mg Ext Rel Tab) 50 mg PO BID [facility] Stop: 12/11/23 08:59 Last Admin: 11/12/23 21:21 Dose: 50 mg Midodrine (Midodrine Hcl 2.5 Mg Tab) 5 mg PO BID@0800,1600 [facility] Stop: 12/12/23 10:14 Last Admin: 11/12/23 14:56 Dose: 5 mg Miscellaneous ([place]~Order Awaiting Action) 1 each N/A QS [facility] Stop: 12/07/23 07:59 Last Admin: 11/13/23 07:41 Dose: Not Given Miscellaneous (Carbohydrates For Hypoglycemia ) 15 - 30 gm PO UD PRN PRN Reason: Hypoglycemia Protocol Stop: 12/07/23 02:04 Miscellaneous (Remove Nicoderm Patch) 1 each N/A DAILY@0859 [facility] Stop: 12/08/23 08:58 Last Admin: 11/12/23 08:30 Dose: 1 each Montelukast Sodium (Montelukast Sodium 10 Mg Tablet) 10 mg PO QAM [facility] Stop: 12/07/23 08:59 Last Admin: 11/12/23 08:00 Dose: 10 mg Nicotine (Nicotine 21 Mg/24 Hr Tdsy) 1 patch TD QAM [facility] Stop: 12/07/23 14:59 Last Admin: 11/12/23 08:03 Dose: 1 patch Oxybutynin Chloride (Oxybutynin Chloride Xl 5 Mg Tabcr) 10 mg PO QAM [facility] Stop: 12/07/23 08:59 Last Admin: 11/12/23 08:00 Dose: 10 mg Oxycodone HCl (Oxycodone Hcl Ir 5 Mg Tab (Immediate Release)) 5 mg PO Q4H PRN PRN Reason: Pain Stop: 11/21/23 02:04 Last Admin: 11/12/23 17:57 Dose: 5 mg Pantoprazole Sodium (Pantoprazole 40 Mg Tab) 40 mg PO QAM [facility] Stop: 12/07/23 08:59 Last Admin: 11/12/23 07:59 Dose: 40 mg Polyethylene Glycol (Polyethylene (Miralax) 17 Gm Pack) 17 gm PO DAILY [facility] Stop: 12/13/23 08:59 Senna/Docusate Sodium (Docusate Sodium/Senna 50/8.6mg Tab) 1 tab PO QAM [facility] Stop: 12/07/23 08:59 Last Admin: 11/12/23 08:06 Dose: 1 tab Thiamine HCl (Thiamine Hcl 100 Mg Tab) 100 mg PO QAM [facility] Stop: 12/07/23 08:59 Last Admin: 11/12/23 08:01 Dose: 100 mg (1) Sepsis Sepsis acute organ dysfunction status: without acute organ dysfunction Sepsis type: sepsis due to unspecified organism Qualified Code(s): A41.9 - Sepsis, unspecified organism
[2023-11-13] MEDS: POLYETHYLENE (MIRALAX) 17 GM PACK PO SCH (07:56)
[2023-11-14 06:36] LABS: Hematocrit (blood only) 33.4 % (42.0-52.0); Hemoglobin 10.9 g/dl (14.0-18.0); Mean Corpuscular Hemoglobin 27.7 pg (25.0-34.0); Mean Corpuscular Hgb Conc 32.6 g/dL (32.0-36.0); Mean Corpuscular Volume 84.8 fL (80.0-100.0); Mean Platelet Volume 11.1 fL (9.4-12.4); Platelet Count 475 K/uL (130-400); RDW Coefficient of Variation 14.6 % (11.5-14.5); RDW Standard Deviation 44.6 fL (36.4-46.3); Red Blood Count 3.94 M/uL (4.70-6.10); White Blood Count 19.42 K/ul (4.8-10.8)
[2023-11-14 06:56] LABS: BUN Creatinine Ratio 22.4 (10-20); Calcium 9.5 mg/dl (8.6-10.3); Creatinine Clr Calc Pharmacy 68.2 ml/min; Est GFR (African American) 64.9 ml/min; Magnesium 1.7 mg/dl (1.7-2.4); Phosphorus 3.5 mg/dl (2.5-4.9); Potassium 4.1 mmol/L (3.5-5.1)
--- NOTE | 2023-11-14 17:17 | Hospitalist Progress Note ---
Date of Service November 14, 2023 Assessment & Plan (1) Sepsis: Plan: Severe sepsis Complicated urinary tract infection Likely secondary to Medrano catheter H/O B/L hydronephrosis/obstructive uropathy with indwelling Medrano catheter Urinary retention --CT ABD:Medrano catheter in an underdistended bladder limits evaluation. Please correlate with urinalysis to evaluate for cystitis. Cholelithiasis. No acute traumatic abnormality. -- Urine culture --positive for Citrobacter and Pseudomonas --Blood cultures negat. in 48 hrs Continue IV cefepime Appreciate urology input Continue Medrano catheter Will need follow-up with urology on discharge PT OT recommends rehab placement Plan to discharge to rehab facility as able 11/11 Discussed w/ urology WBC 18 K ->exchanged Medrano (as was originally placed on 10/18) - also repeated urine cultx - currently pending, WBC now 17K 11/13 WBC continues to be elevated. repeat ucultx posit. for yeast - discussed w/ ID - no need for treatment of yeast, expected Acute Kidney Injury Cr:2.14>1.6 received IV fluids Avoid nephrotoxic agents as able Monitor renal function Metformin, Jardiance were discontinued on prior admission as recommended by nephrology Nephrology consulted - regarding labile BP, orthostatics, proteinuria - will need outpt follow up Cr 1.4 today Orthostatic hypotension - secondary to diabetes - pt has hx of orthostatic hypotension - teds - stopped amlodipine, lisinopril, cont. metoprolol, started florinef and midodrine - discussed w/nephrology Hypertension Antihypertensives held due to low BP and orthostatic hypotension Continue metoprolol with holding parameters Added teds Limited use of antihypertensives given significant orthostatic hypotension Monitor BP, discussed w/ nephro as above Recurrent falls Ambulatory dysfunction Refused to be discharged to rehab last admission Currently agreeable to go to rehab Fall precautions PT OT--Recommends Rehab Chronic leukocytosis Was evaluated by hematology in the past Monitor CBC Obstipation No signs of bowel obstruction on imaging Continue bowel regimen Impacted cerumen Continue Debrox Advised to follow-up with ENT as outpatient CAD S/O POLY in 06/2022 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 Yasmany Merlos continue ASA, statin, metoprolol, Plavix REJI inhibitor discontinued last admission due to SAMANTHA DM II HbA1c 7.9 on Trulicity Metformin, Jardiance discontinued last admission due to worsening renal function Continue insulin while hospitalized Monitor BGs Bipolar depression MED continue Cymbalta, Wellbutrin, Buspar, Klonopin Hyperlipidemia on statin Diabetic neuropathy continue gabapentin Follows [facility] DVT Px: Heparin SQ Code Status Full code Disposition Rehab as able Admission and Anticipated Discharge Date Admission Date: November 06, 2023 Subjective Patient seen in follow up of UTI, orthostatic hypotension No new complaints Remains orthostatic - discussed w/ nephrology - started florinef, midodrine Denies any chest pain, dyspnea, abd. pain Leukocytosis and repeat ucultx discussed w/ ID today Review of Systems Review of Systems: All systems reviewed & are unremarkable except as noted in Subjective Physical Exam Physical Exam: General Appearance: Moderately built and nourished M in NAD Head: NC/AT Eyes: normal inspection, EOMI Neck: supple Respiratory/Chest: Normal breath sounds, CTA, No accessory muscle use Cardiovascular: S1, S2, No murmur Abdomen/GI:Soft, Non tender, Bowel sounds present Extremities/Musculoskeletal:normal inspection, no edema Neurologic/Psych:AAOX3, grossly no focal neurological deficits Skin: warm, dry, +tattoos Results & Data Results & Data Vital Signs (Past 12 Hours) Vital Signs Temp Pulse Pulse Resp BP Pulse Ox O2 Del Method 11/14/23 15:43 36.8 C 87 18 152/107 H 96 Room Air 11/14/23 14:05 91 H 11/14/23 11:39 36.8 C 91 H 18 153/110 H 98 Room Air 11/14/23 07:50 37.1 C 89 18 163/111 H 97 Room Air 11/14/23 06:40 89 Laboratory Results 11/14/23 11/14/23 11/14/23 Range/Units 16:43 11:59 08:15 WBC (4.8-10.8) K/ul RBC (4.70-6.10) M/uL Hgb (14.0-18.0) g/dl Hct (42.0-52.0) % MCV (80.0-100.0) fL MCH (25.0-34.0) pg MCHC (32.0-36.0) g/dL RDW Std Deviation (36.4-46.3) fL RDW Coeff of Pancho (11.5-14.5) % Plt Count (130-400) K/uL MPV (9.4-12.4) fL Sodium (136-145) mmol/L Potassium (3.5-5.1) mmol/L Chloride (98-107) mmol/L Carbon Dioxide (21-32) mmol/L Anion Gap (3-11) BUN (6-23) mg/dl Creatinine (0.6-1.4) mg/dl Est Cr Clr Drug Dosing ml/min Est GFR ( Amer) ml/min Est GFR (Non-Af Amer) ml/min BUN/Creatinine Ratio (10-20) Glucose (70-99(Fasting)) mg/dl POC Glucose 177 H 173 H 177 H (70-99) mg/dl Calcium (8.6-10.3) mg/dl Phosphorus (2.5-4.9) mg/dl Magnesium (1.7-2.4) mg/dl 11/14/23 11/13/23 11/13/23 Range/Units 05:56 20:15 17:22 WBC 19.42 H (4.8-10.8) K/ul RBC 3.94 L (4.70-6.10) M/uL Hgb 10.9 L (14.0-18.0) g/dl Hct 33.4 L (42.0-52.0) % MCV 84.8 (80.0-100.0) fL MCH 27.7 (25.0-34.0) pg MCHC 32.6 (32.0-36.0) g/dL RDW Std Deviation 44.6 (36.4-46.3) fL RDW Coeff of Pancho 14.6 H (11.5-14.5) % Plt Count 475 H (130-400) K/uL MPV 11.1 (9.4-12.4) fL Sodium 138 (136-145) mmol/L Potassium 4.1 (3.5-5.1) mmol/L Chloride 107 (98-107) mmol/L Carbon Dioxide 24 (21-32) mmol/L Anion Gap 7 (3-11) BUN 33 H (6-23) mg/dl Creatinine 1.47 H (0.6-1.4) mg/dl Est Cr Clr Drug Dosing 68.2 ml/min Est GFR ( Amer) 64.9 ml/min Est GFR (Non-Af Amer) 56.0 ml/min BUN/Creatinine Ratio 22.4 H (10-20) Glucose 185 H (70-99(Fasting)) mg/dl POC Glucose 149 H 162 H (70-99) mg/dl Calcium 9.5 (8.6-10.3) mg/dl Phosphorus 3.5 (2.5-4.9) mg/dl Magnesium 1.7 (1.7-2.4) mg/dl Medications Administered Current Inpatient Medications Acetaminophen (Acetaminophen 325 Mg Tab) 650 mg PO QID PRN PRN Reason: pain/fever Stop: 12/07/23 02:04 Last Admin: 11/07/23 07:26 Dose: 650 mg Aspirin (Aspirin 81 Mg Ectab) 81 mg PO [facility] Stop: 12/07/23 08:59 Last Admin: 11/14/23 08:15 Dose: 81 mg Atorvastatin Calcium ([facility]vastatin 40 Mg Tab) [facility] Stop: 12/07/23 08:59 Last Admin: 11/14/23 08:17 Dose: 40 mg Bupropion HCl (Bupropion Xl 150 Mg Tabcr) 450 mg PO [facility] Stop: 12/07/23 08:59 Last Admin: 11/14/23 08:16 Dose: 450 mg Buspirone HCl (Buspirone 5 Mg Tab) 10 mg PO BID [facility] Stop: 12/07/23 08:59 Last Admin: 11/14/23 08:15 Dose: 10 mg Clonazepam (Clonazepam 0.5 Mg Tab) 0.5 mg PO BID PRN PRN Reason: Anxiety Stop: 12/07/23 02:04 Last Admin: 11/13/23 01:04 Dose: 0.5 mg Clopidogrel Bisulfate (Clopidogrel Bisulfate 75 Mg Tab) 75 mg PO DAILYBL [facility] Stop: 12/07/23 10:29 Last Admin: 11/14/23 10:36 Dose: 75 mg Dextrose (Dextrose 50% 50 Ml Syringe) 25 - 50 ml IV UD PRN; Protocol PRN Reason: Hypoglycemia Protocol Stop: 12/07/23 02:04 Duloxetine HCl (Duloxetine Hcl 60 Mg Cap) 60 [facility] [place] Stop: 12/07/23 08:59 Last Admin: 11/14/23 08:17 Dose: 60 mg Duloxetine HCl (Duloxetine Hcl 30 Mg Cap) 30 mg PO QAM [facility] Stop: 12/07/23 08:59 Last Admin: 11/14/23 08:16 Dose: 30 mg Fludrocortisone Acetate (Fludrocortisone Acetate 0.1 Mg Tab) 0.1 mg PO QAM [facility] Stop: 12/11/23 16:29 Last Admin: 11/14/23 08:16 Dose: 0.1 mg Gabapentin (Gabapentin 300 Mg Cap) 300 mg PO TID [facility] Stop: 12/07/23 08:59 Last Admin: 11/14/23 13:55 Dose: 300 mg Glucagon (Glucagon For Inj 1 Mg Vial) 1 mg SQ UD PRN; Protocol PRN Reason: Hypoglycemia Protocol Stop: 12/07/23 02:04 Glucose (Glucose 40% Gel 15 Gm Tube) 15 - 30 gm PO UD PRN; Protocol PRN Reason: Hypoglycemia Protocol Stop: 12/07/23 02:04 Glucose (Glucose 10 Tab/Tube) 4 - 8 tab PO UD PRN; Protocol PRN Reason: Hypoglycemia Treatment Stop: 12/07/23 02:04 Heparin Sodium (Porcine) (Heparin Sod 5,000 Unit/0.5 Ml Vial) 5,000 units SQ Q8 [facility] Stop: 12/07/23 05:59 Last Admin: 11/14/23 13:55 Dose: 5,000 units Promethazine HCl 6.25 mg/ (Sodium Chloride) 50.25 mls @ 201 mls/hr IV Q6H PRN PRN Reason: Nausea And Vomiting Stop: 12/07/23 02:04 Cefepime HCl 2,000 mg/ Syringe 20 mls @ 5 mls/min IV Q8H [facility]; Protocol Stop: 11/17/23 07:59 Last Admin: 11/14/23 15:36 Dose: 5 mls/min Insulin Aspart (Insulin Aspart Per Unit Charge) 0 units SC ACHS [facility] Stop: 12/07/23 02:04 Last Admin: 11/14/23 12:35 Dose: 5 units Metoprolol Succinate (Metoprolol Succ 50mg Ext Rel Tab) 50 mg PO BID [facility] Stop: 12/11/23 08:59 Last Admin: 11/14/23 08:15 Dose: 50 mg Midodrine (Midodrine Hcl 2.5 Mg Tab) 5 mg PO BID@0800,1600 [facility] Stop: 12/12/23 10:14 Last Admin: 11/14/23 15:36 Dose: 5 mg Miscellaneous ([place]~Order Awaiting Action) 1 each N/A QS [facility] Stop: 12/07/23 07:59 Last Admin: 11/14/23 15:22 Dose: Not Given Miscellaneous (Carbohydrates For Hypoglycemia ) 15 - 30 gm PO UD PRN PRN Reason: Hypoglycemia Protocol Stop: 12/07/23 02:04 Miscellaneous (Remove Nicoderm Patch) 1 each N/A DAILY@0859 [facility] Stop: 12/08/23 08:58 Last Admin: 11/14/23 08:19 Dose: 1 each Montelukast Sodium (Montelukast Sodium 10 Mg Tablet) [facility] [place] Stop: 12/07/23 08:59 Last Admin: 11/14/23 08:17 Dose: 10 mg Nicotine (Nicotine 21 Mg/24 Hr Tdsy) 1 patch TD [facility] Stop: 12/07/23 14:59 Last Admin: 11/14/23 08:19 Dose: 1 patch Oxybutynin Chloride (Oxybutynin Chloride Xl 5 Mg Tabcr) 10 mg PO [facility] Stop: 12/07/23 08:59 Last Admin: 11/14/23 08:16 Dose: 10 mg Oxycodone HCl (Oxycodone Hcl Ir 5 Mg Tab (Immediate Release)) 5 mg PO Q4H PRN PRN Reason: Pain Stop: 11/21/23 02:04 Last Admin: 11/14/23 16:06 Dose: 5 mg Pantoprazole Sodium (Pantoprazole 40 Mg Tab) 40 mg PO QAM [facility] Stop: 12/07/23 08:59 Last Admin: 11/14/23 08:16 Dose: 40 mg Polyethylene Glycol (Polyethylene (Miralax) 17 Gm Pack) 17 gm PO DAILY [facility] Stop: 12/13/23 08:59 Last Admin: 11/14/23 08:21 Dose: Not Given Senna/Docusate Sodium (Docusate Sodium/Senna 50/8.6mg Tab) 1 tab PO QAM [facility] Stop: 12/07/23 08:59 Last Admin: 11/14/23 08:18 Dose: 1 tab Thiamine HCl (Thiamine Hcl 100 Mg Tab) 100 mg PO QAM [facility] Stop: 12/07/23 08:59 Last Admin: 11/14/23 08:16 Dose: 100 mg (1) Sepsis Sepsis acute organ dysfunction status: without acute organ dysfunction Sepsis type: sepsis due to unspecified organism Qualified Code(s): A41.9 - Sepsis, unspecified organism
[2023-11-15 07:59] LABS: BUN Creatinine Ratio 20.8 (10-20); Calcium 9.4 mg/dl (8.6-10.3); Creatinine Clr Calc Pharmacy 67.3 ml/min; Est GFR (African American) 63.9 ml/min; Est GFR (Non-African American) 55.1 ml/min; Potassium 4.3 mmol/L (3.5-5.1)
--- NOTE | 2023-11-15 10:15 | Discharge Summary ---
Date of Service November 15, 2023 Admission HPI Per Admitting Provider History obtained from patient and records. Medical history significant for chronic systolic heart failure (EF 45%, TTE 2021), CAD status post stent, hypertension, hyperlipidemia, CRI (baseline creatinine 1.8), DM2 on oral medications, migraine, chronic anemia (base hemoglobin of 9-10), anxiety/mood disorder, past tobacco abuse. Recent confinement October 19 to 2023 for complicated UTI, ARF in the setting of obstructive uropathy with bilateral hydronephrosis. Serum creatinine at discharge was 1.8. Patient discharged with Medrano catheter for urinary retention. Outpatient urology follow-up recommended. Patient refused rehab placement as per discharge note. Patient with recurrent falls at home since leaving the hospital. No syncope, no chest pain, no SOB. Intermittent right-sided headache/ear pain which is nothing new as per patient. No discharge. Right ear feels like underwater. Patient noted to be increasingly weak the last couple of days. Was found on the bathroom floor. No abdominal or flank pain. Denies head trauma. Last BM was 4 days ago which is unusual for him. SBP 90s upon arrival at the ER. IV cefepime administered at the ER. Medical History as above Surgical History : Dental surgery, knee surgery Family History : Prostate cancer, DM, hypertension Personal/Social history : Past tobacco abuse, no EtOH intake, disabled Admission Exam Per Admitting Provider GENERAL: apathetic, looks older than stated age, no respiratory distress SKIN: Pallor, warm HEENT: Pale palpebral conjunctivae, no ptosis, dry buccal mucosa AD impacted cerumen, TM not fully visualized , retained cerumen NECK : Supple, no tenderness CHEST : CTA, no tenderness HEART : RRR, no obvious murmurs ABDOMEN: Some distention, nontender EXTREMITIES : No LE swelling/tenderness, no other conspicuous deformities noted NEUROLOGIC : Coherent, no facial asymmetry, no other gross focality Principal Diagnosis Sepsis, UTI, Medrano catheter for urinary retention Orthostatic hypotension Discharge Exam General Appearance: Moderately built and nourished M in NAD Head: NC/AT Eyes: normal inspection, EOMI Neck: supple Respiratory/Chest: Normal breath sounds, CTA, No accessory muscle use Cardiovascular: S1, S2, No murmur Abdomen/GI:Soft, Non tender, Bowel sounds present Extremities/Musculoskeletal:normal inspection, no edema Neurologic/Psych:AAOX3, grossly no focal neurological deficits Skin: warm, dry, +tattoos Discharge Data Allergies Allergy/AdvReac Type Severity Reaction Status Date / Time adhesive Allergy Intermediate Contact Verified 11/06/23 21:08 dermatitis latex Allergy Mild RASH Verified 11/06/23 21:08 tramadol Allergy Unknown n/v Verified 11/06/23 21:08 Consultations 11/06/23 20:14 ED Decision to Admit Stat 11/07/23 02:05 Consult Urology Routine 11/10/23 17:00 Consult Nephrology Routine Ordered Studies 11/06/23 18:37 CT head/brain wo con Stat Findings: The paranasal sinuses and mastoid air cells are clear. The calvarium and skull base are intact. The ventricles and sulci are within normal limits. There is no mass, hematoma, midline shift, or acute infarct. Impression: No acute intracranial abnormality. 11/06/23 18:38 CT abd pelvis wo con Stat FINDINGS: Lung bases: Mild dependent atelectasis bilaterally. Heart: Coronary artery calcifications. ABDOMEN: Liver: Unremarkable. Gallbladder and bile ducts: Cholelithiasis. No ductal dilation. Pancreas: Unremarkable. No ductal dilation. Spleen: Unremarkable. No splenomegaly. Adrenals: Unremarkable. No mass. Kidneys and ureters: Hydronephrosis or stone. Stomach and bowel: Large amount of stool. No small bowel obstruction. No mucosal thickening. PELVIS: Appendix: No findings to suggest acute appendicitis. Bladder: Medrano catheter in an underdistended bladder limits evaluation. Please correlate with urinalysis to evaluate for cystitis. No stones. Reproductive: Unremarkable as visualized. ABDOMEN and PELVIS: Intraperitoneal space: Unremarkable. No free air. No significant fluid collection. Bones/joints: Screws traversing the left femoral neck. No acute fracture. No dislocation. Soft tissues: Small fat-containing left inguinal hernia. Vasculature: Phleboliths in pelvis. Atherosclerotic changes of the vasculature. No aortic aneurysm. Lymph nodes: Unremarkable. No enlarged lymph nodes. IMPRESSION: 1. Large amount of stool. No small bowel obstruction. 2. Medrano catheter in an underdistended bladder limits evaluation. Please correlate with urinalysis to evaluate for cystitis. 3. Cholelithiasis. 4. No acute traumatic abnormality. CT cervical spine wo con Stat FINDINGS: No fractures. No subluxation. Prevertebral soft tissues and the C1-C2 interval are intact. No pneumothorax. IMPRESSION: No fractures within the cervical spine. Hospital Course (1) Sepsis: Severe sepsis Complicated urinary tract infection Likely secondary to Medrano catheter H/O B/L hydronephrosis/obstructive uropathy with indwelling Medrano catheter Urinary retention --CT ABD:Medrano catheter in an underdistended bladder limits evaluation. Please correlate with urinalysis to evaluate for cystitis. Cholelithiasis. No acute traumatic abnormality. -- Urine culture --positive for Citrobacter and Pseudomonas --Blood cultures negat. in 48 hrs Continue IV cefepime Appreciate urology input Continue Merdano catheter Will need follow-up with urology on discharge PT OT recommends rehab placement Plan to discharge to rehab facility as able 11/11 Discussed w/ urology WBC 18 K ->exchanged Medrano (as was originally placed on 10/18) - also repeated urine cultx - currently pending, WBC now 17K 11/13 WBC continues to be elevated. repeat ucultx posit. for yeast - discussed w/ ID - no need for treatment of yeast, expected Will dc on cipro to encompass to finish txt for UTI Acute Kidney Injury Cr:2.14>1.6 received IV fluids Avoid nephrotoxic agents as able Monitor renal function Metformin, Jardiance were discontinued on prior admission as recommended by nephrology Nephrology consulted - regarding labile BP, orthostatics, proteinuria - will need outpt follow up Cr 1.4 today Orthostatic hypotension - secondary to diabetes - pt has hx of orthostatic hypotension - teds - stopped amlodipine, lisinopril, cont. metoprolol, started florinef and midodrine - discussed w/nephrology Hypertension Antihypertensives held due to low BP and orthostatic hypotension Continue metoprolol with holding parameters Added teds Limited use of antihypertensives given significant orthostatic hypotension Monitor BP, discussed w/ nephro as above Recurrent falls Ambulatory dysfunction Refused to be discharged to rehab last admission Currently agreeable to go to rehab Fall precautions PT OT--Recommends Rehab Chronic leukocytosis Was evaluated by hematology in the past Monitor CBC Obstipation No signs of bowel obstruction on imaging Continue bowel regimen Impacted cerumen Continue Debrox Advised to follow-up with ENT as outpatient CAD S/O POLY in 06/2022 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 Yasmany continue ASA, statin, metoprolol, Plavix REJI inhibitor discontinued last admission due to SAMANTHA DM II HbA1c 7.9 on Trulicity Metformin, Jardiance discontinued last admission due to worsening renal function Continue insulin while hospitalized Monitor BGs Bipolar depression MED continue Cymbalta, Wellbutrin, Buspar, Klonopin Hyperlipidemia on statin Diabetic neuropathy continue gabapentin Follows [facility] Total Time Total Time Spent Total Time Spent (In Minutes): 40 Discharge Plan Discharge Items Patient Disposition: Transfer Inpatient Rehab Fac Reason For Visit: SEPSIS Discharge Diagnosis: Sepsis, UTI, Medrano catheter for urinary retention Orthostatic hypotension Activity: Per Instructions section Non-emergency contact: Primary Care Provider, Color Drum Worker and Supervisor Evaporator Call non-emergency contact if: you have any medication questions and your sympt oms worsen Follow-up/Referrals: Ruben Gordillo MD [Primary Care Provider] - Diet: Carb Consistent or DM2 Addtl Attending Provider Instructions: Follow up with your primary care doctor, urologist, 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 Finish antibiotic course as prescribed. In addition, you were started on medications - Florinef, and midodrine to help with your orthostatic hypotension. Because of this, your blood pressure medications - amlodipine - benazepril were stopped. Pending Studies at Discharge: No Stand-Alone Forms: My [facility] Skilled Items Patient informed of condition?: Yes DNR: No Discharge Level of Care: Acute rehab Communicable Disease: No Discharge Prognosis: Stable Lines: None Urinary Catheter: Yes Medications and DC Order Prescriptions: New sennosides-docusate sodium [Senokot-S] 8.6-50 mg Tablet 1 tab PO QAM Qty: 30 0RF midodrine 5 mg tablet 5 mg PO BID Qty: 30 0RF Rx Instructions: do not give last dose of day after 6PM or within 4 hrs of bedtime fludrocortisone 0.1 mg Tablet 0.1 mg PO QAM Qty: 30 0RF thiamine HCl (vitamin B1) 100 mg Tablet 100 mg PO QAM Qty: 30 0RF ciprofloxacin HCl 500 mg tablet 500 mg PO BID 3 Days Qty: 6 0RF Advanced Probiotic 625 mg (10 billion cell) Capsule 1 cap PO DAILY Qty: 10 0RF polyethylene glycol 3350 [Miralax] 17 gram Powder In Packet 17 g PO DAILY Qty: 14 0RF Continued pantoprazole 40 mg Tablet,Delayed Release (Dr/Ec) 40 mg PO QAM gabapentin 300 mg Capsule 300 mg PO TID montelukast 10 mg Tablet 10 mg PO QAM buspirone 10 mg tablet 10 mg PO BID cholecalciferol (vitamin D3) [Vitamin D3] 25 mcg (1,000 unit) capsule 25 mcg PO QDL duloxetine 60 mg capsule,delayed release(DR/EC) 60 mg PO QAM aspirin 81 mg tablet,delayed release (DR/EC) 81 mg PO QAM duloxetine 30 mg capsule,delayed release(DR/EC) 30 mg PO QAM Trulicity 1.5 mg/0.5 mL pen injector 1.5 mg SUBCUT Rx Instructions: take on TUESDAYS bupropion HCl 450 mg tablet extended release 24 hr 450 mg PO QAM clonazepam 0.5 mg tablet 0.5 mg PO BID PRN (Reason: Anxiety) magnesium oxide 400 mg (241.3 mg magnesium) tablet 400 mg PO QAM oxybutynin chloride 10 mg tablet extended release 24hr 10 mg PO QAM atorvastatin 40 mg tablet 40 mg PO QAM clopidogrel 75 mg tablet 75 mg PO DAILYBL ramelteon 8 mg tablet 8 mg PO HS PRN (Reason: Sleep) metoprolol succinate 25 mg tablet extended release 24 hr 25 mg PO BID lidocaine HCl 2 % Jelly In Applicator 0.5 ml EXT BID PRN (Reason: catheter Pain) Qty: 125 0RF Discontinued Jardiance 10 mg tablet 10 mg PO QAM Hold Instructions: Until further recommendations from your primary care physician/gravel truck driver metformin 500 mg tablet extended release 24 hr 500 mg PO BID Hold Instructions: Until further recommendations from your primary care physician/gravel truck driver amlodipine-benazepril 5-20 mg capsule 1 cap PO DAILY Hold Instructions: Hold until further recommendations by your gravel truck driver/Primary care physician. amlodipine 5 mg tablet 5 mg PO DAILY Qty: 30 0RF Discharge Orders: Discharge Order (Routine); Ordered 11/15/23 Ordered By: Po Verma Admission Data Admit Date/Time: 11/06/23 22:54 Attending Provider: Po Verma Admit Provider: Yovanny Lo Primary Care Provider: Ruben Gordillo Other Providers: Yovanny Lo; Carlos Torres; Zach Juan; Brian Beatty; Constance Taylor; Cody Tang.; Haley Gracia; Michelle Gunter; Martín Lin; Connie Pineda; Omi Morrison; Aj Samuel; Mark Macias.; [facility]; Daron Negron; Rusty Price
[2023-11-15] MEDS: ADVANCED PROBIOTIC 625 MG CAPSULE PO SCH (10:41)
== END 2023-11-15 15:05 | DRG 698 ==
LOC: ED 17:26 → EDINP 22:54 → SUATTDRO 22:54 → 2N 11-07 14:51

== ENCOUNTER 2024-03-13 19:13 | Inpatient (IN) ==
--- NOTE | 2024-03-13 19:24 | Emergency Department Note ---
Impression & Plan AMS (altered mental status), Leukocytosis, Sepsis, Acute UTI (urinary tract infection), Acute kidney injury superimposed on chronic kidney disease, Acute dehydration, Acute hypernatremia, Elevated lactic acid level, Non-ST elevation [place] (NSTEMI) ED Provider Note HISTORY OF PRESENT ILLNESS: Patient is a 48-year-old male presenting with altered mental status and a fall. Patient reportedly was home alone all weekend and his family returned today and states that they still found him in bed. They report he was very altered. They were able to get him out into the living room but he then suffered a ground- level fall. They called 911. EMS got him up off the ground. Per their report, he is normally alert and oriented. Patient is on Eliquis. On arrival to the ER, patient is unable to give any meaningful history or answer any questions. ROS: as above PHYSICAL EXAM: Vitals: See nursing chart. Constitutional: GCS 13 - confused. HENT: Head: No external signs of trauma. Mouth/Throat: Midface stable. No malocclusion. Eyes: EOMI. Pupils are 3 mm, round and reactive bilaterally. Nose: No nasal septal hematoma. No gross deformity. Neck: No cervical collar in place. No midline C-spine tenderness. No step- offs. Cardiovascular: RRR. Pulses present in all 4 extremities. Pulmonary/Chest: BS equal bilaterally. No tenderness or ecchymosis. Abdomen: No tenderness or ecchymosis. Musculoskeletal: Pelvis: No instability. Back: No midline tenderness. No step-offs. Extremities: No gross deformities. No TTP. Skin: No laceration. No abrasion. Neuro: No focal neurological deficits. GCS as above. MDM: - Vitals signs showed hypertension, tachycardia and fever. - History obtained via EMS, given patient's confusion. History as above. - Chronic conditions affecting care: HLD; HTN; DM-2; bipolar I disorder; ischemic cardiomyopathy - Differential diagnoses include, but are not limited to: CVA; intracranial hemorrhage; ACS; pneumonia; UTI; dysrhythmia; electrolyte abnormality - Order placed for continuous cardiac monitoring. At this time, monitor showed rate of 105 bpm with normal sinus rhythm, per my interpretation. - External medical records reviewed. Discharge summary dated 11/12/2023 was reviewed. Patient was admitted that time for sepsis secondary to UTI. - EKG interpreted by myself showed normal sinus rhythm. Rate tachycardic at 129 bpm. QT 316. No acute ischemic changes. - Laboratory workup interpreted by myself showed leukocytosis (WBC 23.42) with neutrophilic predominance; normal PT/INR; hypernatremia (Na 150); elevated anion gap (15); ASMANTHA on CKD (Cr 2.3); hyperglycemia (glucose 285); elevated troponin (108.8); normal CK; normal procalcitonin; elevated lactate (2.1) - Repeat troponin 122.8. Repeat lactate down to 1.5 - UA positive for infection. Given 2g IV rocephin - Blood cultures obtained - CXR negative for pneumonia - CT head wo contrast negative for acute intracranial pathology - CT cervical spine wo contrast negative for acute injury - CT chest/abdomen/pelvis negative for acute abnormality - Viral respiratory panel negative - Patient given 1L NS and 1g IV tylenol for hydration and fever in ER. - Patient meets sepsis criteria. Will admit to hospital service. - Discussion was had with rn case manager hospice about patient's case and need for admission - Hospitalist, Dr. Lo, consulted for admission - Patient admitted to [facility] service for further evaluation and management. ASSESSMENT AND PLAN: Diagnosis: Altered mental status; sepsis; acute UTI; leukocytosis; SAMANTHA on CKD; NSTEMI; elevated lactic acid level; hypernatremia; acute dehydration Plan: Admit Past Med/Surg History Problem List (Updated 03/13/24 @ 22:55 by Jami Pope MD) Non-ST elevation [place] (NSTEMI) (Acute) Elevated lactic acid level (Acute) Acute hypernatremia (Acute) Acute dehydration (Acute) Acute kidney injury superimposed on chronic kidney disease (Acute) Acute UTI (urinary tract infection) (Acute) Sepsis (Acute) Leukocytosis (Acute) AMS (altered mental status) (Acute) Acute serous otitis media (Acute) Proteinuria due to type 2 diabetes mellitus Sepsis (Acute) Orthostatic hypotension dysautonomic syndrome Gross hematuria Chronic back pain greater than 3 months duration Leukocytosis (Acute) Acute urinary retention (Acute) SAMANTHA (acute kidney injury) (Acute) SAMANTHA (acute kidney injury) Hydronephrosis Urinary retention Lumbar spinal stenosis Metabolic acidosis Hyperglycemia Sinus tachycardia Dehydration (Acute) Nausea vomiting and diarrhea (Acute) Acute hyperglycemia (Acute) Subcapital fracture of left femur Closed left femoral fracture Personal history of diabetic foot ulcer Type 2 diabetes mellitus with diabetic neuropathy, unspecified CAD (coronary artery disease) Mood disorder History of percutaneous coronary intervention S/P cardiac catheterization Bipolar 1 disorder, depressed Systolic congestive heart failure Ischemic cardiomyopathy Hyperlipidemia Hypertension Type 2 diabetes mellitus Medical History Noncompliance Central retinal artery occlusion, left eye Diabetic peripheral neuropathy Surgical History S/P arthroscopic knee surgery History of dental surgery Family History Other Cancer Diabetes Hypertension Social History Smoking Status: Unknown if ever smoked Tobacco Type: Smokeless Tobacco (Dip or Chew) Second Hand Exposure: No; Do You Dip or Chew Tobacco: Yes; Hx Alcohol Use: Yes Alcohol type: beer Hx Substance Use: No Preferred Language: Croatian Communication Ability: Effective Supervisor Coil Winding Required: No Beliefs That Will Affect Care: None Current Living Situation: Family Current Living Situation Comment: Lives with parents Feels Safe at Home: Yes Assistive Devices: Cane and Walker Allergies Allergies Allergy/AdvReac Type Severity Reaction Status Date / Time adhesive Allergy Intermediate Contact Verified 12/23/23 10:39 dermatitis latex Allergy Mild RASH Verified 12/23/23 10:39 tramadol Allergy Unknown n/v Verified 12/23/23 10:39 Home Meds Home Medications Medication Instructions Recorded Confirmed gabapentin 300 mg capsule 300 mg PO TID 06/16/22 03/13/24 montelukast 10 mg tablet 10 mg PO QAM 06/16/22 03/13/24 pantoprazole 40 mg tablet,delayed 40 mg PO QAM 06/16/22 03/13/24 release aspirin 81 mg tablet,delayed 81 mg PO QAM 01/31/23 03/13/24 release buspirone 10 mg tablet 10 mg PO BID 01/31/23 03/13/24 cholecalciferol (vitamin D3) 25 25 mcg PO QDL 01/31/23 03/13/24 mcg (1,000 unit) capsule (Vitamin D3) duloxetine 60 mg capsule,delayed 60 mg PO QAM 08/27/23 10/07/24 release atorvastatin 40 mg tablet 40 mg PO QAM 10/19/23 03/13/24 bupropion HCl 450 mg 24 hr tablet, 450 mg PO QAM 10/19/23 03/13/24 extended release clonazepam 0.5 mg tablet 0.5 mg PO BID PRN Anxiety 10/19/23 03/13/24 clopidogrel 75 mg tablet 75 mg PO DAILYBL 10/19/23 03/13/24 dulaglutide 1.5 mg/0.5 mL 1.5 mg subcut TU 10/19/23 03/13/24 subcutaneous pen injector (Trulicity) duloxetine 30 mg capsule,delayed 30 mg PO QAM 10/19/23 03/13/24 release magnesium oxide 400 mg (241.3 mg 400 mg PO QAM 10/19/23 03/13/24 magnesium) tablet metoprolol succinate 25 mg 25 mg PO BID 10/19/23 03/13/24 tablet,extended release 24 hr oxybutynin chloride 10 mg 10 mg PO QAM 10/19/23 03/13/24 tablet,extended release 24 hr ramelteon 8 mg tablet 8 mg PO HS PRN Sleep 10/19/23 03/13/24 Previous Rx's Medication Instructions Recorded lidocaine HCl 2 % mucosal jelly in 0.5 ml EXT BID PRN catheter Pain 10/26/23 applicator #125 mL L.acidop,casei,lactis,rham-B.lact,ela 1 cap PO DAILY #10 caps 11/15/23 625 mg (10 billion cell) capsule (Advanced Probiotic) fludrocortisone 0.1 mg tablet 0.1 mg PO QAM #30 tabs 11/15/23 midodrine 5 mg tablet 5 mg PO BID #30 tabs 11/15/23 nicotine 14 mg/24 hr daily 1 patch transdermal DAILY #14 ea 11/15/23 transdermal patch polyethylene glycol 3350 17 gram 17 g PO DAILY #14 ea 11/15/23 oral powder packet (Miralax) sennosides 8.6 mg-docusate sodium 1 tab PO QAM #30 tabs 11/15/23 50 mg tablet (Senokot-S) thiamine HCl (vitamin B1) 100 mg 100 mg PO QAM #30 tabs 11/15/23 tablet amoxicillin 875 mg-potassium 1 tab PO BID #20 tabs 03/07/24 clavulanate 125 mg tablet Results & Data (ED) Vital Signs Vital Signs - 24 hr 03/13/24 19:15 03/13/24 19:15 03/13/24 19:15 Temperature 37.9 C H 37.9 C H Temperature Source Oral Pulse Rate 130 H 130 H Pulse Rate [Apical] Pulse Rate from SpO2 Sensor Pulse Rhythm [Apical] Respiratory Rate 16 17 Respiratory Effort / Characteristics Non-Labored Respiratory Depth Normal Normal Blood Pressure 161/107 H 161/107 H Blood Pressure [Right Arm] Blood Pressure Mean 125 Blood Pressure Mean [Right Arm] Pulse Oximetry 97 97 Oxygen Delivery Method Room Air Room Air Oxygen Flow Rate Sepsis Recent Fever Within 48 Hours Yes Sepsis New/Unexplained Change in Mental Status Yes Sepsis Action Taken by Nursing Physician Notified 03/13/24 19:15 03/13/24 19:32 03/13/24 19:32 Temperature Temperature Source Pulse Rate 129 H Pulse Rate [Apical] Pulse Rate from SpO2 Sensor 129 H Pulse Rhythm [Apical] Respiratory Rate 17 Respiratory Effort / Characteristics Non-Labored Respiratory Depth Normal Blood Pressure 168/108 H Blood Pressure [Right Arm] Blood Pressure Mean 128 Blood Pressure Mean [Right Arm] Pulse Oximetry 99 98 Oxygen Delivery Method Room Air Room Air Oxygen Flow Rate Sepsis Recent Fever Within 48 Hours Sepsis New/Unexplained Change in Mental Status Sepsis Action Taken by Nursing 03/13/24 19:37 03/13/24 19:47 03/13/24 19:50 Temperature Temperature Source Pulse Rate 129 H 124 H Pulse Rate [Apical] Pulse Rate from SpO2 Sensor 126 H 124 H Pulse Rhythm [Apical] Respiratory Rate 25 H Respiratory Effort / Characteristics Respiratory Depth Blood Pressure 167/115 H 160/110 H Blood Pressure [Right Arm] Blood Pressure Mean 132 126 Blood Pressure Mean [Right Arm] Pulse Oximetry 97 98 Oxygen Delivery Method Oxygen Flow Rate Sepsis Recent Fever Within 48 Hours Sepsis New/Unexplained Change in Mental Status Sepsis Action Taken by Nursing 03/13/24 19:53 03/13/24 20:02 03/13/24 20:30 Temperature 37.4 C Temperature Source Oral Pulse Rate 124 H Pulse Rate [Apical] 119 H Pulse Rate from SpO2 Sensor 125 H Pulse Rhythm [Apical] Regular Respiratory Rate 23 23 Respiratory Effort / Characteristics Non-Labored Non-Labored Respiratory Depth Normal Normal Blood Pressure 168/117 H Blood Pressure [Right Arm] 158/112 H Blood Pressure Mean 134 Blood Pressure Mean [Right Arm] 127 Pulse Oximetry 98 99 Oxygen Delivery Method Room Air Oxygen Flow Rate Sepsis Recent Fever Within 48 Hours Sepsis New/Unexplained Change in Mental Status Sepsis Action Taken by Nursing 03/13/24 21:00 03/13/24 21:00 03/13/24 22:00 Temperature Temperature Source Pulse Rate Pulse Rate [Apical] 113 H 112 H Pulse Rate from SpO2 Sensor Pulse Rhythm [Apical] Respiratory Rate 19 25 H Respiratory Effort / Characteristics Respiratory Depth Blood Pressure Blood Pressure [Right Arm] 170/102 H 164/107 H Blood Pressure Mean Blood Pressure Mean [Right Arm] 124 126 Pulse Oximetry 98 98 100 Oxygen Delivery Method Room Air Room Air Room Air Oxygen Flow Rate 0 Sepsis Recent Fever Within 48 Hours Sepsis New/Unexplained Change in Mental Status Sepsis Action Taken by Nursing 03/13/24 22:08 03/13/24 22:31 Temperature Temperature Source Pulse Rate 112 H 102 H Pulse Rate [Apical] Pulse Rate from SpO2 Sensor Pulse Rhythm [Apical] Respiratory Rate Respiratory Effort / Characteristics Respiratory Depth Blood Pressure 164/107 H 174/117 H Blood Pressure [Right Arm] Blood Pressure Mean Blood Pressure Mean [Right Arm] Pulse Oximetry Oxygen Delivery Method Oxygen Flow Rate Sepsis Recent Fever Within 48 Hours Sepsis New/Unexplained Change in Mental Status Sepsis Action Taken by Nursing Laboratory Data 03/13/24 19:37 03/13/24 19:37 Lab Results 03/13/24 03/13/24 03/13/24 Range/Units 19:31 19:34 19:35 WBC (4.8-10.8) K/ul RBC (4.70-6.10) M/uL Hgb (14.0-18.0) g/dl POC Hgb 14.6 (14.0-18.0) g/dl Hct (42.0-52.0) % POC Hct 43 (42-52) % MCV (80.0-100.0) fL MCH (25.0-34.0) pg MCHC (32.0-36.0) g/dL RDW Std Deviation (36.4-46.3) fL RDW Coeff of Pancho (11.5-14.5) % Plt Count (130-400) K/uL MPV (9.4-12.4) fL Immature Gran % (Auto) % Neut % (Auto) % Lymph % (Auto) % Granite % (Auto) % Eos % (Auto) % Baso % (Auto) % Neut # (Auto) (1.40-6.50) K/uL Lymph # (Auto) (1.20-3.40) K/uL Granite # (Auto) (0.11-0.59) K/uL Eos # (Auto) (0.00-0.50) K/uL Baso # (Auto) (0.00-0.20) K/uL Immature Gran # (Auto) (0.01-0.20) K/uL Absolute Nucleated RBC (0.00-0.12) K/uL Nucleated RBC % (auto) % PT (9.0-12.0) Seconds INR (0.9-1.1) POC Sodium 151 H (135-144) mmol/L Sodium (136-145) mmol/L POC Potassium 5.3 H (3.3-5.0) mmol/L Potassium (3.5-5.1) mmol/L POC Chloride 120 H (101-112) mmol/L Chloride (98-107) mmol/L Carbon Dioxide (21-32) mmol/L POC Total CO2 20 L (24-31) mmol/L Anion Gap (3-11) POC Anion Gap 17.0 (16-25) mmol/L POC BUN 86 H (7-18) mg/dl BUN (6-23) mg/dl Creatinine (0.6-1.4) mg/dl POC Creatinine 2.3 H (0.6-1.3) mg/dl Est Cr Clr Drug Dosing eGFR BUN/Creatinine Ratio (10-20) Glucose (70-99(Fasting)) mg/dl POC Glucose (other) 282 H (70-99) mg/dl Lactate (0.4-2.0) mmol/L Calcium (8.6-10.3) mg/dl POC Ioniz Calcium Toy 1.09 L (1.12-1.32) mmol/l Magnesium (1.7-2.4) mg/dl Total Bilirubin (0.2-1.0) mg/dl AST (13-39) U/L ALT (7-52) U/L Alkaline Phosphatase (34-104) U/L Total Creatine Kinase (30-223) U/L Troponin I High Sens (0-20) pg/ml Total Protein (6.0-8.3) gm/dl Albumin (3.4-5.0) gm/dl Globulin (2.5-4.0) gm/dl Albumin/Globulin Ratio (0.9-2) Procalcitonin 0.31 (0-0.5) ng/ml Urine Color Urine Appearance (Clear) Urine pH (4.5-7.5) Ur Specific [place] (1.000-1.030) Urine Protein (Negative) Urine Glucose (UA) (Negative) Urine Ketones (Negative) Urine Blood (Negative) Urine Nitrite (Negative) Urine Bilirubin (Negative) Urine Urobilinogen (Negative) Ur Leukocyte Esterase (Negative) Urine WBC (Auto) (0-5) /hpf Urine RBC (Auto) (0-2) /hpf U Hyaline Cast (Auto) (0-2) /lpf U Epithel Cells (Auto) (0-2) /hpf Urine Bacteria (Auto) (None Seen) Urine Yeast (None Prsent) Adenovirus (PCR) Not Detected (NotDetected) B. pertussis DNA (PCR) Not Detected (NotDetected) B.parapertussis DNA PCR Not Detected (NotDetected) C. pneumoniae DNA (PCR) Not Detected (NotDetected) Coronavirus OC43 (PCR) Not Detected (NotDetected) Coronavirus HKU1 (PCR) Not Detected (NotDetected) Coronavirus 229E (PCR) Not Detected (NotDetected) SARS-CoV-2 (PCR) Not Detected (NotDetected) Coronavirus NL63 (PCR) Not Detected (NotDetected) Human Metapneumovir PCR Not Detected (NotDetected) Influenza Type A (PCR) Not Detected (NotDetected) Influenza Type B (PCR) Not Detected (NotDetected) M. pneumoniae (PCR) Not Detected (NotDetected) Parainfluenza 1 (PCR) Not Detected (NotDetected) Parainfluenza 2 (PCR) Not Detected (NotDetected) Parainfluenza 3 (PCR) Not Detected (NotDetected) Parainfluenza 4 (PCR) Not Detected (NotDetected) RSV (PCR) Not Detected (NotDetected) Entero/Rhino (PCR) Not Detected (NotDetected) 03/13/24 03/13/24 03/13/24 Range/Units 19:37 19:40 19:49 WBC 23.42 H (4.8-10.8) K/ul RBC 5.43 (4.70-6.10) M/uL Hgb 14.3 (14.0-18.0) g/dl POC Hgb (14.0-18.0) g/dl Hct 44.0 (42.0-52.0) % POC Hct (42-52) % MCV 81.0 (80.0-100.0) fL MCH 26.3 (25.0-34.0) pg MCHC 32.5 (32.0-36.0) g/dL RDW Std Deviation 41.4 (36.4-46.3) fL RDW Coeff of Pancho 14.3 (11.5-14.5) % Plt Count 541 H (130-400) K/uL MPV 10.8 (9.4-12.4) fL Immature Gran % (Auto) 0.9 % Neut % (Auto) 75.6 % Lymph % (Auto) 11.0 % Granite % (Auto) 12.0 % Eos % (Auto) 0.0 % Baso % (Auto) 0.5 % Neut # (Auto) 17.70 H (1.40-6.50) K/uL Lymph # (Auto) 2.57 (1.20-3.40) K/uL Granite # (Auto) 2.82 H (0.11-0.59) K/uL Eos # (Auto) 0.01 (0.00-0.50) K/uL Baso # (Auto) 0.12 (0.00-0.20) K/uL Immature Gran # (Auto) 0.20 (0.01-0.20) K/uL Absolute Nucleated RBC 0.04 (0.00-0.12) K/uL Nucleated RBC % (auto) 0.2 % PT 11.8 (9.0-12.0) Seconds INR 1.1 (0.9-1.1) POC Sodium (135-144) mmol/L Sodium 150 H (136-145) mmol/L POC Potassium (3.3-5.0) mmol/L Potassium 4.3 (3.5-5.1) mmol/L POC Chloride (101-112) mmol/L Chloride 114 H (98-107) mmol/L Carbon Dioxide 21 (21-32) mmol/L POC Total CO2 (24-31) mmol/L Anion Gap 15 H (3-11) POC Anion Gap (16-25) mmol/L POC BUN (7-18) mg/dl BUN 66 H (6-23) mg/dl Creatinine 2.30 H (0.6-1.4) mg/dl POC Creatinine (0.6-1.3) mg/dl Est Cr Clr Drug Dosing Not Reportable eGFR 34.38 BUN/Creatinine Ratio 28.7 H (10-20) Glucose 285 H (70-99(Fasting)) mg/dl POC Glucose (other) (70-99) mg/dl Lactate 2.1 H* (0.4-2.0) mmol/L Calcium 9.5 (8.6-10.3) mg/dl POC Ioniz Calcium Toy (1.12-1.32) mmol/l Magnesium (1.7-2.4) mg/dl Total Bilirubin 1.1 H (0.2-1.0) mg/dl AST 15 (13-39) U/L ALT 12 (7-52) U/L Alkaline Phosphatase 81 (34-104) U/L Total Creatine Kinase 132 (30-223) U/L Troponin I High Sens 108.8 H* (0-20) pg/ml Total Protein 7.9 (6.0-8.3) gm/dl Albumin 4.1 (3.4-5.0) gm/dl Globulin 3.8 (2.5-4.0) gm/dl Albumin/Globulin Ratio 1.1 (0.9-2) Procalcitonin (0-0.5) ng/ml Urine Color Dark Yellow Urine Appearance Turbid A (Clear) Urine pH 5.5 (4.5-7.5) Ur Specific [place] 1.021 (1.000-1.030) Urine Protein 3+ H (Negative) Urine Glucose (UA) 3+ H (Negative) Urine Ketones 1+ H (Negative) Urine Blood 2+ H (Negative) Urine Nitrite Negative (Negative) Urine Bilirubin 1+ H (Negative) Urine Urobilinogen Negative (Negative) Ur Leukocyte Esterase 3+ H (Negative) Urine WBC (Auto) >50 H (0-5) /hpf Urine RBC (Auto) >20 H (0-2) /hpf U Hyaline Cast (Auto) 6-10 H (0-2) /lpf U Epithel Cells (Auto) 0-2 (0-2) /hpf Urine Bacteria (Auto) 4+ H (None Seen) Urine Yeast Present A (None Prsent) Adenovirus (PCR) (NotDetected) B. pertussis DNA (PCR) (NotDetected) B.parapertussis DNA PCR (NotDetected) C. pneumoniae DNA (PCR) (NotDetected) Coronavirus OC43 (PCR) (NotDetected) Coronavirus HKU1 (PCR) (NotDetected) Coronavirus 229E (PCR) (NotDetected) SARS-CoV-2 (PCR) (NotDetected) Coronavirus NL63 (PCR) (NotDetected) Human Metapneumovir PCR (NotDetected) Influenza Type A (PCR) (NotDetected) Influenza Type B (PCR) (NotDetected) M. pneumoniae (PCR) (NotDetected) Parainfluenza 1 (PCR) (NotDetected) Parainfluenza 2 (PCR) (NotDetected) Parainfluenza 3 (PCR) (NotDetected) Parainfluenza 4 (PCR) (NotDetected) RSV (PCR) (NotDetected) Entero/Rhino (PCR) (NotDetected) 03/13/24 Range/Units 21:38 WBC (4.8-10.8) K/ul RBC (4.70-6.10) M/uL Hgb (14.0-18.0) g/dl POC Hgb (14.0-18.0) g/dl Hct (42.0-52.0) % POC Hct (42-52) % MCV (80.0-100.0) fL MCH (25.0-34.0) pg MCHC (32.0-36.0) g/dL RDW Std Deviation (36.4-46.3) fL RDW Coeff of Pancho (11.5-14.5) % Plt Count (130-400) K/uL MPV (9.4-12.4) fL Immature Gran % (Auto) % Neut % (Auto) % Lymph % (Auto) % Granite % (Auto) % Eos % (Auto) % Baso % (Auto) % Neut # (Auto) (1.40-6.50) K/uL Lymph # (Auto) (1.20-3.40) K/uL Granite # (Auto) (0.11-0.59) K/uL Eos # (Auto) (0.00-0.50) K/uL Baso # (Auto) (0.00-0.20) K/uL Immature Gran # (Auto) (0.01-0.20) K/uL Absolute Nucleated RBC (0.00-0.12) K/uL Nucleated RBC % (auto) % PT (9.0-12.0) Seconds INR (0.9-1.1) POC Sodium (135-144) mmol/L Sodium (136-145) mmol/L POC Potassium (3.3-5.0) mmol/L Potassium (3.5-5.1) mmol/L POC Chloride (101-112) mmol/L Chloride (98-107) mmol/L Carbon Dioxide (21-32) mmol/L POC Total CO2 (24-31) mmol/L Anion Gap (3-11) POC Anion Gap (16-25) mmol/L POC BUN (7-18) mg/dl BUN (6-23) mg/dl Creatinine (0.6-1.4) mg/dl POC Creatinine (0.6-1.3) mg/dl Est Cr Clr Drug Dosing eGFR BUN/Creatinine Ratio (10-20) Glucose (70-99(Fasting)) mg/dl POC Glucose (other) (70-99) mg/dl Lactate 1.5 (0.4-2.0) mmol/L Calcium (8.6-10.3) mg/dl POC Ioniz Calcium Toy (1.12-1.32) mmol/l Magnesium 2.2 (1.7-2.4) mg/dl Total Bilirubin (0.2-1.0) mg/dl AST (13-39) U/L ALT (7-52) U/L Alkaline Phosphatase (34-104) U/L Total Creatine Kinase 123 (30-223) U/L Troponin I High Sens 122.8 H* (0-20) pg/ml Total Protein (6.0-8.3) gm/dl Albumin (3.4-5.0) gm/dl Globulin (2.5-4.0) gm/dl Albumin/Globulin Ratio (0.9-2) Procalcitonin (0-0.5) ng/ml Urine Color Urine Appearance (Clear) Urine pH (4.5-7.5) Ur Specific [place] (1.000-1.030) Urine Protein (Negative) Urine Glucose (UA) (Negative) Urine Ketones (Negative) Urine Blood (Negative) Urine Nitrite (Negative) Urine Bilirubin (Negative) Urine Urobilinogen (Negative) Ur Leukocyte Esterase (Negative) Urine WBC (Auto) (0-5) /hpf Urine RBC (Auto) (0-2) /hpf U Hyaline Cast (Auto) (0-2) /lpf U Epithel Cells (Auto) (0-2) /hpf Urine Bacteria (Auto) (None Seen) Urine Yeast (None Prsent) Adenovirus (PCR) (NotDetected) B. pertussis DNA (PCR) (NotDetected) B.parapertussis DNA PCR (NotDetected) C. pneumoniae DNA (PCR) (NotDetected) Coronavirus OC43 (PCR) (NotDetected) Coronavirus HKU1 (PCR) (NotDetected) Coronavirus 229E (PCR) (NotDetected) SARS-CoV-2 (PCR) (NotDetected) Coronavirus NL63 (PCR) (NotDetected) Human Metapneumovir PCR (NotDetected) Influenza Type A (PCR) (NotDetected) Influenza Type B (PCR) (NotDetected) M. pneumoniae (PCR) (NotDetected) Parainfluenza 1 (PCR) (NotDetected) Parainfluenza 2 (PCR) (NotDetected) Parainfluenza 3 (PCR) (NotDetected) Parainfluenza 4 (PCR) (NotDetected) RSV (PCR) (NotDetected) Entero/Rhino (PCR) (NotDetected) Administered Medications Miscellaneous (Patient's Height &/Or Weight Needed) 1 each N/A Q2H MAE Stop: 03/14/24 03:31 Last Admin: 03/13/24 22:09 Dose: 1 each Documented By: RONNIE Discontinued Medications Sodium Chloride (Nss) 1,000 mls @ 999 mls/hr IV .Q1H1M ONE Stop: 03/13/24 20:29 Last Infusion: 03/13/24 21:29 Dose: Infused Documented By: Admin: 03/13/24 19:35 Dose: 999 mls/hr Documented By: RAISSA Acetaminophen (Ofirmev) 1,000 mg in 100 mls @ 400 mls/hr IV NOW STA Stop: 03/13/24 19:43 Last Infusion: 03/13/24 21:29 Dose: Infused Documented By: Admin: 03/13/24 19:35 Dose: 400 mls/hr Documented By: RAISSA Sodium Chloride (Nss) 1,000 mls @ 999 mls/hr IV .Q1H1M ONE Stop: 03/13/24 20:45 Last Infusion: 03/13/24 22:31 Dose: Infused Documented By: Admin: 03/13/24 20:41 Dose: 999 mls/hr Documented By: RAISSA Ceftriaxone Sodium (Rocephin) 2,000 mg in 50 mls @ 100 mls/hr IV NOW STA Stop: 03/13/24 20:52 Last Infusion: 03/13/24 21:29 Dose: Infused Documented By: Admin: 03/13/24 20:41 Dose: 100 mls/hr Documented By: RAISSA Piperacillin Sod/Tazobactam Sod (Zosyn) 4.5 gm in 100 mls @ 200 mls/hr IV NOW ONE; Protocol Stop: 03/13/24 21:48 Last Admin: 03/13/24 22:08 Dose: 200 mls/hr Documented By: RONNIE Sodium Chloride (1/2 Nss) 1,000 mls @ 999 mls/hr IV .Q1H1M ONE Stop: 03/13/24 22:21 Last Admin: 03/13/24 22:33 Dose: 999 mls/hr Documented By: RONNIE Ioversol (Optiray 320 100ml) 91 ml IV ONCE ONE Stop: 03/13/24 20:21 Last Admin: 03/13/24 20:20 Dose: 91 ml Documented By: KRISH Metoprolol Tartrate (Metoprolol Tartrate 1 Mg/Ml Vial) 2.5 mg IV NOW STA Stop: 03/13/24 21:35 Last Admin: 03/13/24 22:08 Dose: 2.5 mg Documented By: [facility] Imaging Data Radiologist's Impression: Abdomen/Pelvis CT 03/13/24 19:18 Exam(s): CT ABDOMEN + PELVIS With Contrast IV Amt: 91 cc opti 320 EXAM: CT Abdomen and Pelvis With Intravenous Contrast CLINICAL HISTORY: Reason for exam: Trauma. TECHNIQUE: Axial computed tomography images of the abdomen and pelvis with intravenous contrast. CTDI is 37 mGy and DLP is 1238 mGy-cm. Automated exposure control was utilized for the study. A dose lowering technique was utilized adhering to the principles of ALARA. CONTRAST: Patient received 91 cc opti 320 of IV contrast COMPARISON: CT abdomen/pelvis on 12/02/2022 FINDINGS: Lung bases: Unremarkable. No mass. No consolidation. ABDOMEN: Liver: Unremarkable. No mass. Gallbladder and bile ducts: Cholelithiasis. No ductal dilation. Pancreas: Unremarkable. No mass. No ductal dilation. Spleen: Unremarkable. No splenomegaly. Adrenals: Unremarkable. No mass. Kidneys and ureters: Mild bilateral hydroureteronephrosis. No obstructing ureteral stone identified. Mild prominence of the urothelium in the right renal collecting system may represent ureteritis. Bilateral perinephric fat stranding. Small hypodensity in the right kidney is too small to definitively characterize. Stomach and bowel: Evaluation of the stomach is limited by underdistention. No mucosal thickening. No bowel obstruction or inflammation. PELVIS: Appendix: Normal appendix. Bladder: Bladder wall thickening is concerning for cystitis. Please correlate with urinalysis. Reproductive: Unremarkable as visualized. ABDOMEN and PELVIS: Intraperitoneal space: Unremarkable. No free air. No significant fluid collection. Bones/joints: No acute fracture. No dislocation. Surgical fixation of the proximal left femur. Degenerative changes of the spine. Soft tissues: Unremarkable. Vasculature: Phleboliths in the pelvis. Atherosclerotic changes of the vasculature. No abdominal aortic aneurysm. Lymph nodes: Unremarkable. No enlarged lymph nodes. IMPRESSION: 1. Mild bilateral hydroureteronephrosis. No obstructing ureteral stone identified. Mild prominence of the urothelium in the right renal collecting system may represent ureteritis. Bilateral perinephric fat stranding. 2. Bladder wall thickening is concerning for cystitis. Please correlate with urinalysis. 3. Cholelithiasis. 4. No acute fracture. Electronically signed by: Richard Lizarraga M.D. 03/13/24 20:[address] 03/13/24 19:18 Exam(s): CT C SPINE EXAM: CT Cervical Spine Without Intravenous Contrast CLINICAL HISTORY: Reason for exam: Trauma. TECHNIQUE: Axial computed tomography images of the cervical spine without intravenous contrast. CTDI is 37 mGy and DLP is 1238 mGy-cm. Automated exposure control was utilized for the study. A dose lowering technique was utilized adhering to the principles of ALARA. COMPARISON: CT C-spine on 11/06/2023 FINDINGS: Bones: Normal alignment. No acute fracture or bony lesion. Disc spaces: No subluxation. Mild degenerative changes of the spine. Soft tissues: Normal. Other: Atherosclerotic changes of the vasculature. IMPRESSION: No acute traumatic abnormality. Electronically signed by: Richard Lizarraga M.D. 03/13/24 20:[address] 03/13/24 19:18 Exam(s): CT CHEST With Contrast IV Amt: 91 cc opti 320 EXAM: CT Chest With Intravenous Contrast CLINICAL HISTORY: Reason for exam: Trauma. TECHNIQUE: Axial computed tomography images of the chest with intravenous contrast. CTDI is 37 mGy and DLP is 1238 mGy-cm. Automated exposure control was utilized for the study. A dose lowering technique was utilized adhering to the principles of ALARA. CONTRAST: Patient received 91 cc opti 320 of IV contrast COMPARISON: None FINDINGS: Lungs: Unremarkable. No mass. No consolidation. Pleural space: Unremarkable. No pneumothorax. No significant effusion. Heart: Coronary artery calcifications. No cardiomegaly. No significant pericardial effusion. Bones/joints: Mild degenerative changes of the spine. No acute fracture. No dislocation. Soft tissues: Unremarkable. Vasculature: See above. Lymph nodes: Unremarkable. No enlarged lymph nodes. IMPRESSION: No acute findings in the chest. Electronically signed by: Richard Lizarraga M.D. 03/13/24 20:[address] 03/13/24 19:18 Exam(s): CT HEAD Without Contrast EXAM: CT Head Without Intravenous Contrast CLINICAL HISTORY: Reason for exam: Trauma. TECHNIQUE: Axial computed tomography images of the head/brain without intravenous contrast. CTDI is 37 mGy and DLP is 1238 mGy-cm. Automated exposure control was utilized for the study. A dose lowering technique was utilized adhering to the principles of ALARA. COMPARISON: None FINDINGS: Brain: No acute infarct or hemorrhage identified. No extra-axial fluid collection. No mass effect or midline shift. Scattered areas of hypoattenuation in the supratentorial white matter likely represent chronic small vessel ischemic changes. Ventricles and sulci: Prominence of the ventricles and sulci is likely secondary to cerebral volume loss. Bones: Normal. No bony lesion or acute fracture. Subcutaneous tissues: Normal. Sinuses: Normal. No air-fluid levels or mucosal thickening. Mastoid air cells: Normal. Orbits: Grossly unremarkable. Other: Atherosclerotic calcifications in the intracranial vasculature. IMPRESSION: 1. No definite acute intracranial abnormality. Evaluation is limited by motion artifact. 2. Mild chronic small vessel ischemic changes and cerebral volume loss. Electronically signed by: Richard Lizarraga M.D. 03/13/24 20:54 PM Discharge Plan Visit Data Chief Complaint: Trauma Stated Complaint: TRAUMA ALERT ED Provider: Jami Pope Discharge Problem: AMS (altered mental status), Leukocytosis, Sepsis, Acute UTI (urinary tract infection), Acute kidney injury superimposed on chronic kidney disease, Acute dehydration, Acute hypernatremia, Elevated lactic acid level, Non-ST elevation [place] (NSTEMI) Forms Stand Alone Forms: My [facility] Prescriptions Prescriptions: No Action pantoprazole 40 mg Tablet,Delayed Release (Dr/Ec) 40 mg PO QAM gabapentin 300 mg Capsule 300 mg PO TID montelukast 10 mg Tablet 10 mg PO QAM buspirone 10 mg tablet 10 mg PO BID cholecalciferol (vitamin D3) [Vitamin D3] 25 mcg (1,000 unit) capsule 25 mcg PO QDL duloxetine 60 mg capsule,delayed release(DR/EC) 60 mg PO QAM aspirin 81 mg tablet,delayed release (DR/EC) 81 mg PO QAM duloxetine 30 mg capsule,delayed release(DR/EC) 30 mg PO QAM Trulicity 1.5 mg/0.5 mL pen injector 1.5 mg SUBCUT TU Rx Instructions: take on TUESDAYS bupropion HCl 450 mg tablet extended release 24 hr 450 mg PO QAM clonazepam 0.5 mg tablet 0.5 mg PO BID PRN (Reason: Anxiety) magnesium oxide 400 mg (241.3 mg magnesium) tablet 400 mg PO QAM oxybutynin chloride 10 mg tablet extended release 24hr 10 mg PO QAM atorvastatin 40 mg tablet 40 mg PO QAM clopidogrel 75 mg tablet 75 mg PO DAILYBL ramelteon 8 mg tablet 8 mg PO HS PRN (Reason: Sleep) metoprolol succinate 25 mg tablet extended release 24 hr 25 mg PO BID lidocaine HCl 2 % Jelly In Applicator 0.5 ml EXT BID PRN (Reason: catheter Pain) Qty: 125 0RF sennosides-docusate sodium [Senokot-S] 8.6-50 mg Tablet 1 tab PO QAM Qty: 30 0RF midodrine 5 mg tablet 5 mg PO BID Qty: 30 0RF Rx Instructions: do not give last dose of day after 6PM or within 4 hrs of bedtime fludrocortisone 0.1 mg Tablet 0.1 mg PO QAM Qty: 30 0RF thiamine HCl (vitamin B1) 100 mg Tablet 100 mg PO QAM Qty: 30 0RF Advanced Probiotic 625 mg (10 billion cell) Capsule 1 cap PO DAILY Qty: 10 0RF polyethylene glycol 3350 [Miralax] 17 gram Powder In Packet 17 g PO DAILY Qty: 14 0RF nicotine 14 mg/24 hr patch 24 hour 1 patch transdermal DAILY Qty: 14 0RF amoxicillin-pot clavulanate 875-125 mg tablet 1 tab PO BID Qty: 20 0RF Referrals Referrals: Ruben Gordillo MD [Primary Care Provider] -
[2024-03-13] MEDS: SODIUM CHLORIDE 0.9% 1,000 ML IV ONE ×2 (19:35→20:41)
[2024-03-13] MEDS: ACETAMINOPHEN 1,000 MG/100 ML VIAL IV STA (19:35)
[2024-03-13 19:46] LABS: iSTAT Creatinine 2.3 mg/dl (0.6-1.3); iSTAT Hemoglobin 14.6 g/dl (14.0-18.0); iSTAT Ionized Calcium 1.09 mmol/l (1.12-1.32); iSTAT Potassium 5.3 mmol/L (3.3-5.0)
[2024-03-13 20:11] LABS: Basophils # (auto) 0.12 K/uL (0.00-0.20); Basophils % (auto) 0.5 %; Eosinophils # (auto) 0.01 K/uL (0.00-0.50); Hemoglobin 14.3 g/dl (14.0-18.0); Immature Granulocytes % (auto) 0.9 %; Lymphocytes # (auto) 2.57 K/uL (1.20-3.40); Mean Corpuscular Hemoglobin 26.3 pg (25.0-34.0); Mean Corpuscular Hgb Conc 32.5 g/dL (32.0-36.0); Mean Platelet Volume 10.8 fL (9.4-12.4); Monocytes # (auto) 2.82 K/uL (0.11-0.59); Neutrophils % (auto) 75.6 %; Nucleated RBC # (auto) 0.04 K/uL (0.00-0.12); Nucleated RBC % (auto) 0.2 %; Platelet Count 541 K/uL (130-400); RDW Coefficient of Variation 14.3 % (11.5-14.5); RDW Standard Deviation 41.4 fL (36.4-46.3); Red Blood Count 5.43 M/uL (4.70-6.10); White Blood Count 23.42 K/ul (4.8-10.8)
[2024-03-13 20:16] LABS: Alanine Aminotransferase 12 U/L (7-52); Albumin Globulin Ratio 1.1 (0.9-2); Albumin Level 4.1 gm/dl (3.4-5.0); Alkaline Phosphatase 81 U/L (34-104); Anion Gap 15 (3-11); Aspartate Aminotransferase 15 U/L (13-39); BUN Creatinine Ratio 28.7 (10-20); Bilirubin,Total 1.1 mg/dl (0.2-1.0); Blood Urea Nitrogen 66 mg/dl (6-23); Calcium 9.5 mg/dl (8.6-10.3); Carbon Dioxide 21 mmol/L (21-32); Chloride 114 mmol/L (98-107); Creatine Kinase 132 U/L (30-223); Globulin 3.8 gm/dl (2.5-4.0); Glucose 285 mg/dl (70-99(Fasting)); Potassium 4.3 mmol/L (3.5-5.1); Sodium 150 mmol/L (136-145); Total Protein 7.9 gm/dl (6.0-8.3)
[2024-03-13] MEDS: OPTIRAY 320 100ml IV ONE (20:20)
[2024-03-13 20:22] LABS: Appearance Urine Turbid (Clear); Bacteria Urine Automated 4+ (None Seen); Bilirubin Urine 1+ (Negative); Blood Urine 2+ (Negative); Color Urine Dark Yellow; Epithelial Cell Urine Auto 0-2 /hpf (0-2); Glucose Urine UA 3+ (Negative); Ketones Urine 1+ (Negative); Leukocyte Esterase Urine 3+ (Negative); Nitrite Urine Negative (Negative); Protein Urine 3+ (Negative); RBC Urine Automated >20 /hpf (0-2); Specific Gravity Urine 1.021 (1.000-1.030); Urobilinogen Urine Negative (Negative); WBC Urine Automated >50 /hpf (0-5); pH Urine 5.5 (4.5-7.5)
[2024-03-13 20:34] LABS: INR 1.1 (0.9-1.1); Prothrombin Time 11.8 Seconds (9.0-12.0)
[2024-03-13 20:35] LABS: Troponin I High Sensitivity 108.8 pg/ml (0-20)
[2024-03-13] MEDS: cefTRIAXone SODIUM 2,000 MG/50 ML BAG IV STA (20:41)
--- NOTE | 2024-03-13 20:41 | CT Scan Report ---
Exam(s): CT CHEST With Contrast IV Amt: 91 cc opti 320 EXAM: CT Chest With Intravenous Contrast CLINICAL HISTORY: Reason for exam: Trauma. TECHNIQUE: Axial computed tomography images of the chest with intravenous contrast. CTDI is 37 mGy and DLP is 1238 mGy-cm. Automated exposure control was utilized for the study. A dose lowering technique was utilized adhering to the principles of ALARA. CONTRAST: Patient received 91 cc opti 320 of IV contrast COMPARISON: None FINDINGS: Lungs: Unremarkable. No mass. No consolidation. Pleural space: Unremarkable. No pneumothorax. No significant effusion. Heart: Coronary artery calcifications. No cardiomegaly. No significant pericardial effusion. Bones/joints: Mild degenerative changes of the spine. No acute fracture. No dislocation. Soft tissues: Unremarkable. Vasculature: See above. Lymph nodes: Unremarkable. No enlarged lymph nodes. IMPRESSION: No acute findings in the chest. Electronically signed by: Richard Lizarraga M.D. 03/13/24 20:40 PM
[2024-03-13 20:47] LABS: Adenovirus PCR Not Detected (NotDetected); Bordetella parapertussis PCR Not Detected (NotDetected); Bordetella pertussis PCR Not Detected (NotDetected); Chlamydia pneumoniae PCR Not Detected (NotDetected); Coronavirus 229E PCR Not Detected (NotDetected); Coronavirus CoV-2 (COVID19)PCR Not Detected (NotDetected); Coronavirus HKU1 PCR Not Detected (NotDetected); Coronavirus NL63 PCR Not Detected (NotDetected); Coronavirus OC43PCR Not Detected (NotDetected); Human Metapneumovirus PCR Not Detected (NotDetected); Influenza A PCR Not Detected (NotDetected); Influenza B PCR Not Detected (NotDetected); Mycoplasma pneumoniae PCR Not Detected (NotDetected); Parainfluenza Virus 1 PCR Not Detected (NotDetected); Parainfluenza Virus 2 PCR Not Detected (NotDetected); Parainfluenza Virus 3 PCR Not Detected (NotDetected); Parainfluenza Virus 4 PCR Not Detected (NotDetected); Respiratory Syncytial VirusPCR Not Detected (NotDetected); Rhinovirus/Enterovirus PCR Not Detected (NotDetected)
--- NOTE | 2024-03-13 20:47 | CT Scan Report ---
Exam(s): CT ABDOMEN + PELVIS With Contrast IV Amt: 91 cc opti 320 EXAM: CT Abdomen and Pelvis With Intravenous Contrast CLINICAL HISTORY: Reason for exam: Trauma. TECHNIQUE: Axial computed tomography images of the abdomen and pelvis with intravenous contrast. CTDI is 37 mGy and DLP is 1238 mGy-cm. Automated exposure control was utilized for the study. A dose lowering technique was utilized adhering to the principles of ALARA. CONTRAST: Patient received 91 cc opti 320 of IV contrast COMPARISON: CT abdomen/pelvis on 12/02/2022 FINDINGS: Lung bases: Unremarkable. No mass. No consolidation. ABDOMEN: Liver: Unremarkable. No mass. Gallbladder and bile ducts: Cholelithiasis. No ductal dilation. Pancreas: Unremarkable. No mass. No ductal dilation. Spleen: Unremarkable. No splenomegaly. Adrenals: Unremarkable. No mass. Kidneys and ureters: Mild bilateral hydroureteronephrosis. No obstructing ureteral stone identified. Mild prominence of the urothelium in the right renal collecting system may represent ureteritis. Bilateral perinephric fat stranding. Small hypodensity in the right kidney is too small to definitively characterize. Stomach and bowel: Evaluation of the stomach is limited by underdistention. No mucosal thickening. No bowel obstruction or inflammation. PELVIS: Appendix: Normal appendix. Bladder: Bladder wall thickening is concerning for cystitis. Please correlate with urinalysis. Reproductive: Unremarkable as visualized. ABDOMEN and PELVIS: Intraperitoneal space: Unremarkable. No free air. No significant fluid collection. Bones/joints: No acute fracture. No dislocation. Surgical fixation of the proximal left femur. Degenerative changes of the spine. Soft tissues: Unremarkable. Vasculature: Phleboliths in the pelvis. Atherosclerotic changes of the vasculature. No abdominal aortic aneurysm. Lymph nodes: Unremarkable. No enlarged lymph nodes. IMPRESSION: 1. Mild bilateral hydroureteronephrosis. No obstructing ureteral stone identified. Mild prominence of the urothelium in the right renal collecting system may represent ureteritis. Bilateral perinephric fat stranding. 2. Bladder wall thickening is concerning for cystitis. Please correlate with urinalysis. 3. Cholelithiasis. 4. No acute fracture. Electronically signed by: Richard Lizarraga M.D. 03/13/24 20:46 PM
--- NOTE | 2024-03-13 20:55 | CT Scan Report ---
Exam(s): CT HEAD Without Contrast EXAM: CT Head Without Intravenous Contrast CLINICAL HISTORY: Reason for exam: Trauma. TECHNIQUE: Axial computed tomography images of the head/brain without intravenous contrast. CTDI is 37 mGy and DLP is 1238 mGy-cm. Automated exposure control was utilized for the study. A dose lowering technique was utilized adhering to the principles of ALARA. COMPARISON: None FINDINGS: Brain: No acute infarct or hemorrhage identified. No extra-axial fluid collection. No mass effect or midline shift. Scattered areas of hypoattenuation in the supratentorial white matter likely represent chronic small vessel ischemic changes. Ventricles and sulci: Prominence of the ventricles and sulci is likely secondary to cerebral volume loss. Bones: Normal. No bony lesion or acute fracture. Subcutaneous tissues: Normal. Sinuses: Normal. No air-fluid levels or mucosal thickening. Mastoid air cells: Normal. Orbits: Grossly unremarkable. Other: Atherosclerotic calcifications in the intracranial vasculature. IMPRESSION: 1. No definite acute intracranial abnormality. Evaluation is limited by motion artifact. 2. Mild chronic small vessel ischemic changes and cerebral volume loss. Electronically signed by: Richard Lizarraga M.D. 03/13/24 20:54 PM
--- NOTE | 2024-03-13 20:58 | CT Scan Report ---
Exam(s): CT C SPINE EXAM: CT Cervical Spine Without Intravenous Contrast CLINICAL HISTORY: Reason for exam: Trauma. TECHNIQUE: Axial computed tomography images of the cervical spine without intravenous contrast. CTDI is 37 mGy and DLP is 1238 mGy-cm. Automated exposure control was utilized for the study. A dose lowering technique was utilized adhering to the principles of ALARA. COMPARISON: CT C-spine on 11/06/2023 FINDINGS: Bones: Normal alignment. No acute fracture or bony lesion. Disc spaces: No subluxation. Mild degenerative changes of the spine. Soft tissues: Normal. Other: Atherosclerotic changes of the vasculature. IMPRESSION: No acute traumatic abnormality. Electronically signed by: Richard Lizarraga M.D. 03/13/24 20:57 PM
[2024-03-13] MEDS: METOPROLOL TARTRATE 1 MG/ML VIAL IV STA (22:08)
[2024-03-13] MEDS: PIPERACILLIN/TAZOBACTAM 4.5 GM/100 ML BAG IV ONE (22:08)
[2024-03-13] MEDS: Patient's HEIGHT &/or WEIGHT Needed SCH (22:09)
[2024-03-13 22:19] LABS: Magnesium 2.2 mg/dl (1.7-2.4)
[2024-03-13] MEDS: SODIUM CHLORIDE 0.45 % 1,000 ML IV ONE (22:33)
--- NOTE | 2024-03-13 23:12 | History & Physical Report ---
Date of Service March 13, 2024 Assessment & Plan (1) Encephalopathy: Plan: Multifactorial: Severe sepsis (SIRS plus ARF on CKD plus lactic acidosis plus encephalopathy) secondary to complicated UTI, history chronic urinary retention/bilateral hydronephrosis bilateral hydronephrosis/obstructive uropath, Uncontrolled hypertension (fludrocortisone and midodrine for orthostatic hypotension contributory) Hypernatremia Multiple homeless echo tropic medications contributory chronic diastolic heart failure, patient on the dry side hx CAD status post stent hyperlipidemia, on statin Rx DM2 on oral medications, reasonable control as of recent hemoglobin A1c of 7.08 December 2023 chronic anemia, hemoglobin at baseline Functional disability, patient mother feels she cannot care for patient at home given his multiple comorbidities past tobacco abuse. Medical telemetry CS, Zosyn Insert Medrano catheter given history of urinary retention and failed home CIC regimen Monitor creatinine response/lactic acid response to IVF Urology consult Re: Follow-up,r obstructive uropathy Titrate home beta-vera; hold midodrine and fludrocortisone given uncontrolled hypertension, discontinue meds on discharge if BP continues to be uncontrolled during admission Hold neuropsychotropic medications until patient mentation back to baseline Basal bolus insulin adjusted for clear liquid diet, ISS BG goal 1 10-1 40, carb count coverage PT OT eval, possible placement once medically stable DVT prophylaxis with heparin subcu Full code Patient mother requesting updates providers. Ms. Prerna Moctezuma, contact numbers [phone]. Text document was generated using Pixelle voice recognition software. It may contain grammatical or spelling errors. Kindly contact undersigned for clarification of any documentation item in question. History of Present Illness Chief Complaint: I cannot pee as per patient. Confusion as per family Primary Care Provider: Ruben Gordillo MD History obtained from patient, family, and records. Limited history from patient secondary to disorientation. Medical history significant for chronic diastolic heart failure (EF 65-70%, TTE 2022), CAD status post stent, hypertension, hyperlipidemia, orthostatic hypotension on midodrine, CRI (baseline creatinine 1.4), DM2 on oral medications, migraine, chronic anemia (baseline hemoglobin of 10-11), chronic urinary retention, anxiety/mood disorder, past tobacco abuse. Last confinement November 2023 for sepsis secondary to complicated UTI. Urine CS grew Citrobacter and Pseudomonas. Midodrine started for orthostatic hypotension attributed to DM. Patient discharged to rehab facility with Medrano catheter. Medrano catheter discontinued following outpatient [facility] [place] visit last month. Successful voiding trial January 2024 as per documentation. Patient Medrano catheter removed as patient expressed interest in learning CIC. Patient seen at PCPs office last week. Patient complaining of bladder issue and progressive back and leg pain outpatient MRI showed multilevel degenerative disease without significant spinal stenosis or disc herniation as per provider note. Patient prescribed baclofen. Unclear if patient started prescription. Patient seen at the ER last week for right ear pain Discharge on Augmentin course for otitis media. Patient has been sick at home the last 4 days as per mother. Not getting up from bed. More confused than usual. Patient denies headache, chest pain, SOB. Ear pain better as per patient. Patient repeatedly complaining that he cannot pee. Some abdominal discomfort. No EtOH intake as per patient family. Highest SBP of 170s documented at the ER. Ceftriaxone administered at the ER. Medical History as above Surgical History : Dental surgery, knee surgery, vascular procedure Family History : Prostate cancer, DM, hypertension Personal/Social history : Past tobacco abuse, no EtOH intake, disabled Allergies Allergy/AdvReac Type Severity Reaction Status Date / Time adhesive Allergy Intermediate Contact Verified 12/23/23 10:39 dermatitis latex Allergy Mild RASH Verified 12/23/23 10:39 tramadol Allergy Unknown n/v Verified 12/23/23 10:39 Home Medications Medication Instructions Recorded Confirmed Type gabapentin 300 mg capsule 300 mg PO TID 06/16/22 03/13/24 History montelukast 10 mg tablet 10 mg PO QAM 06/16/22 03/13/24 History pantoprazole 40 mg tablet,delayed 40 mg PO QAM 06/16/22 03/13/24 History release aspirin 81 mg tablet,delayed 81 mg PO QAM 01/31/23 03/13/24 History release buspirone 10 mg tablet 10 mg PO BID 01/31/23 03/13/24 History cholecalciferol (vitamin D3) 25 25 mcg PO QDL 01/31/23 03/13/24 History mcg (1,000 unit) capsule (Vitamin D3) duloxetine 60 mg capsule,delayed 60 mg PO QAM 01/31/23 03/13/24 History release atorvastatin 40 mg tablet 40 mg PO QAM 10/19/23 03/13/24 History bupropion HCl 450 mg 24 hr tablet, 450 mg PO QAM 10/19/23 03/13/24 History extended release clonazepam 0.5 mg tablet 0.5 mg PO BID PRN Anxiety 10/19/23 03/13/24 History clopidogrel 75 mg tablet 75 mg PO DAILYBL 10/19/23 03/13/24 History dulaglutide 1.5 mg/0.5 mL 1.5 mg subcut TU 10/19/23 03/13/24 History subcutaneous pen injector (Trulicity) duloxetine 30 mg capsule,delayed 30 mg PO QAM 10/19/23 03/13/24 History release magnesium oxide 400 mg (241.3 mg 400 mg PO QAM 10/19/23 03/13/24 History magnesium) tablet metoprolol succinate 25 mg 25 mg PO BID 10/19/23 03/13/24 History tablet,extended release 24 hr oxybutynin chloride 10 mg 10 mg PO QAM 10/19/23 03/13/24 History tablet,extended release 24 hr ramelteon 8 mg tablet 8 mg PO HS PRN Sleep 10/19/23 03/13/24 History lidocaine HCl 2 % mucosal jelly in 0.5 ml EXT BID PRN catheter Pain 10/26/23 03/13/24 Rx applicator #125 mL L.acidop,casei,lactis,rham-B.lact,ela 1 cap PO DAILY #10 caps 11/15/23 03/13/24 Rx 625 mg (10 billion cell) capsule (Advanced Probiotic) fludrocortisone 0.1 mg tablet 0.1 mg PO QAM #30 tabs 11/15/23 03/13/24 Rx midodrine 5 mg tablet 5 mg PO BID #30 tabs 11/15/23 03/13/24 Rx nicotine 14 mg/24 hr daily 1 patch transdermal DAILY #14 ea 11/15/23 03/13/24 Rx transdermal patch polyethylene glycol 3350 17 gram 17 g PO DAILY #14 ea 11/15/23 03/13/24 Rx oral powder packet (Miralax) sennosides 8.6 mg-docusate sodium 1 tab PO QAM #30 tabs 11/15/23 03/13/24 Rx 50 mg tablet (Senokot-S) thiamine HCl (vitamin B1) 100 mg 100 mg PO QAM #30 tabs 11/15/23 03/13/24 Rx tablet amoxicillin 875 mg-potassium 1 tab PO BID #20 tabs 03/07/24 03/13/24 Rx clavulanate 125 mg tablet Past Med/Surg History Problem List Encephalopathy Non-ST elevation DE (NSTEMI) (Acute) Elevated lactic acid level (Acute) Acute hypernatremia (Acute) Acute dehydration (Acute) Acute kidney injury superimposed on chronic kidney disease (Acute) Acute UTI (urinary tract infection) (Acute) Sepsis (Acute) Leukocytosis (Acute) AMS (altered mental status) (Acute) Acute serous otitis media (Acute) Proteinuria due to type 2 diabetes mellitus Sepsis (Acute) Orthostatic hypotension dysautonomic syndrome Gross hematuria Chronic back pain greater than 3 months duration Leukocytosis (Acute) Acute urinary retention (Acute) SAMANTHA (acute kidney injury) (Acute) SAMANTHA (acute kidney injury) Hydronephrosis Urinary retention Lumbar spinal stenosis Metabolic acidosis Hyperglycemia Sinus tachycardia Dehydration (Acute) Nausea vomiting and diarrhea (Acute) Acute hyperglycemia (Acute) Subcapital fracture of left femur Closed left femoral fracture Personal history of diabetic foot ulcer Type 2 diabetes mellitus with diabetic neuropathy, unspecified CAD (coronary artery disease) Mood disorder History of percutaneous coronary intervention S/P cardiac catheterization Bipolar 1 disorder, depressed Systolic congestive heart failure Ischemic cardiomyopathy Hyperlipidemia Hypertension Type 2 diabetes mellitus Medical History Noncompliance Central retinal artery occlusion, left eye Diabetic peripheral neuropathy Surgical History S/P arthroscopic knee surgery History of dental surgery Family History Other Cancer Diabetes Hypertension Social History Smoking Status: Never smoker Tobacco Type: Smokeless Tobacco (Dip or Chew) Second Hand Exposure: No; Do You Dip or Chew Tobacco: Yes; Hx Alcohol Use: Yes Alcohol type: beer Hx Substance Use: Yes Last Used Substance: Days (ago) Last Used Substance Other:: Urine tox came back positive for ecstasy, benzos, and marijuana Preferred Language: Northern Irish Communication Ability: Effective Bog Cutter Required: No Beliefs That Will Affect Care: None Current Living Situation: Family Current Living Situation Comment: Lives with parents Other Information That Helps Us Care for You: No Feels Safe at Home: Yes Safety Concerns: Feels Safe At This Time Assistive Devices: Cane and Walker Review of Systems Review of Systems: Could not be reliably obtained secondary to disorientation Physical Exam Physical Exam: GENERAL: Disoriented, looks older than stated age, no respiratory distress SKIN: Pallor, warm HEENT: Pale palpebral conjunctivae, no ptosis, dry buccal mucosa NECK : Supple, no tenderness CHEST : CTA, no tenderness HEART : Tachycardic, no obvious murmurs ABDOMEN: Some distention, nontender EXTREMITIES : No LE swelling/tenderness, no other conspicuous deformities noted NEUROLOGIC : Disoriented, no facial asymmetry, no other gross focality Results & Data Results & Data Vital Signs (Past 12 Hours) Vital Signs Temp Pulse Pulse Resp BP BP Pulse Ox 03/13/24 22:31 102 H 174/117 H 03/13/24 22:08 112 H 164/107 H 03/13/24 22:00 112 H 25 H 164/107 H 100 03/13/24 21:00 113 H 19 170/102 H 98 03/13/24 21:00 98 03/13/24 20:30 37.4 C 119 H 23 158/112 H 99 03/13/24 19:53 124 H 23 168/117 H 98 03/13/24 19:50 124 H 25 H 160/110 H 98 03/13/24 19:47 167/115 H 97 03/13/24 19:37 129 H 03/13/24 19:32 129 H 17 168/108 H 98 03/13/24 19:32 99 03/13/24 19:15 03/13/24 19:15 37.9 C H 130 H 17 161/107 H 97 03/13/24 19:15 37.9 C H 130 H 16 161/107 H 97 O2 Del Method O2 Flow Rate 03/13/24 22:31 03/13/24 22:08 03/13/24 22:00 Room Air 03/13/24 21:00 Room Air 03/13/24 21:00 Room Air 0 03/13/24 20:30 Room Air 03/13/24 19:53 03/13/24 19:50 03/13/24 19:47 03/13/24 19:37 03/13/24 19:32 03/13/24 19:32 Room Air 03/13/24 19:15 Room Air 03/13/24 19:15 Room Air 03/13/24 19:15 Room Air Laboratory Results Laboratory Results WBC 23.42 K/ul (4.8-10.8) H 03/13/24 19:37 RBC 5.43 M/uL (4.70-6.10) 03/13/24 19:37 Hgb 14.3 g/dl (14.0-18.0) 03/13/24 19:37 POC Hgb 14.6 g/dl (14.0-18.0) 03/13/24 19:34 Hct 44.0 % (42.0-52.0) 03/13/24 19:37 POC Hct 43 % (42-52) 03/13/24 19:34 MCV 81.0 fL (80.0-100.0) 03/13/24 19:37 MCH 26.3 pg (25.0-34.0) 03/13/24 19:37 MCHC 32.5 g/dL (32.0-36.0) 03/13/24 19:37 RDW Std Deviation 41.4 fL (36.4-46.3) 03/13/24 19:37 RDW Coeff of Pancho 14.3 % (11.5-14.5) 03/13/24 19:37 Plt Count 541 K/uL (130-400) H 03/13/24 19:37 MPV 10.8 fL (9.4-12.4) 03/13/24 19:37 Immature Gran % (Auto) 0.9 % 03/13/24 19:37 Neut % (Auto) 75.6 % 03/13/24 19:37 Lymph % (Auto) 11.0 % 03/13/24 19:37 Bath % (Auto) 12.0 % 03/13/24 19:37 Eos % (Auto) 0.0 % 03/13/24 19:37 Baso % (Auto) 0.5 % 03/13/24 19:37 Neut # (Auto) 17.70 K/uL (1.40-6.50) H 03/13/24 19:37 Lymph # (Auto) 2.57 K/uL (1.20-3.40) 03/13/24 19:37 Bath # (Auto) 2.82 K/uL (0.11-0.59) H 03/13/24 19:37 Eos # (Auto) 0.01 K/uL (0.00-0.50) 03/13/24 19:37 Baso # (Auto) 0.12 K/uL (0.00-0.20) 03/13/24 19:37 Immature Gran # (Auto) 0.20 K/uL (0.01-0.20) 03/13/24 19:37 Absolute Nucleated RBC 0.04 K/uL (0.00-0.12) 03/13/24 19:37 Nucleated RBC % (auto) 0.2 % 03/13/24 19:37 PT 11.8 Seconds (9.0-12.0) 03/13/24 19:37 INR 1.1 (0.9-1.1) 03/13/24 19:37 POC Sodium 151 mmol/L (135-144) H 03/13/24 19:34 Sodium 150 mmol/L (136-145) H 03/13/24 19:37 POC Potassium 5.3 mmol/L (3.3-5.0) H 03/13/24 19:34 Potassium 4.3 mmol/L (3.5-5.1) 03/13/24 19:37 POC Chloride 120 mmol/L (101-112) H 03/13/24 19:34 Chloride 114 mmol/L (98-107) H 03/13/24 19:37 Carbon Dioxide 21 mmol/L (21-32) 03/13/24 19:37 POC Total CO2 20 mmol/L (24-31) L 03/13/24 19:34 Anion Gap 15 (3-11) H 03/13/24 19:37 POC Anion Gap 17.0 mmol/L (16-25) 03/13/24 19:34 POC BUN 86 mg/dl (7-18) H 03/13/24 19:34 BUN 66 mg/dl (6-23) H 03/13/24 19:37 Creatinine 2.30 mg/dl (0.6-1.4) H 03/13/24 19:37 POC Creatinine 2.3 mg/dl (0.6-1.3) H 03/13/24 19:34 Est Cr Clr Drug Dosing Not Reportable 03/13/24 19:37 eGFR 34.38 03/13/24 19:37 BUN/Creatinine Ratio 28.7 (10-20) H 03/13/24 19:37 Glucose 285 mg/dl (70-99(Fasting)) H 03/13/24 19:37 POC Glucose (other) 282 mg/dl (70-99) H 03/13/24 19:34 Lactate 1.5 mmol/L (0.4-2.0) 03/13/24 21:38 Calcium 9.5 mg/dl (8.6-10.3) 03/13/24 19:37 POC Ioniz Calcium Toy 1.09 mmol/l (1.12-1.32) L 03/13/24 19:34 Magnesium 2.2 mg/dl (1.7-2.4) 03/13/24 21:38 Total Bilirubin 1.1 mg/dl (0.2-1.0) H 03/13/24 19:37 AST 15 U/L (13-39) 03/13/24 19:37 ALT 12 U/L (7-52) 03/13/24 19:37 Alkaline Phosphatase 81 U/L (34-104) 03/13/24 19:37 Total Creatine Kinase 123 U/L (30-223) 03/13/24 21:38 Troponin I High Sens 122.8 pg/ml (0-20) H* 03/13/24 21:38 Total Protein 7.9 gm/dl (6.0-8.3) 03/13/24 19:37 Albumin 4.1 gm/dl (3.4-5.0) 03/13/24 19:37 Globulin 3.8 gm/dl (2.5-4.0) 03/13/24 19:37 Albumin/Globulin Ratio 1.1 (0.9-2) 03/13/24 19:37 Procalcitonin 0.31 ng/ml (0-0.5) 03/13/24 19:35 Urine Color Dark Yellow 03/13/24 19:49 Urine Appearance Turbid (Clear) A 03/13/24 19:49 Urine pH 5.5 (4.5-7.5) 03/13/24 19:49 Ur Specific [place] 1.021 (1.000-1.030) 03/13/24 19:49 Urine Protein 3+ (Negative) H 03/13/24 19:49 Urine Glucose (UA) 3+ (Negative) H 03/13/24 19:49 Urine Ketones 1+ (Negative) H 03/13/24 19:49 Urine Blood 2+ (Negative) H 03/13/24 19:49 Urine Nitrite Negative (Negative) 03/13/24 19:49 Urine Bilirubin 1+ (Negative) H 03/13/24 19:49 Urine Urobilinogen Negative (Negative) 03/13/24 19:49 Ur Leukocyte Esterase 3+ (Negative) H 03/13/24 19:49 Urine WBC (Auto) >50 /hpf (0-5) H 03/13/24 19:49 Urine RBC (Auto) >20 /hpf (0-2) H 03/13/24 19:49 U Hyaline Cast (Auto) 6-10 /lpf (0-2) H 03/13/24 19:49 U Epithel Cells (Auto) 0-2 /hpf (0-2) 03/13/24 19:49 Urine Bacteria (Auto) 4+ (None Seen) H 03/13/24 19:49 Urine Yeast Present (None Prsent) A 03/13/24 19:49 Adenovirus (PCR) Not Detected (NotDetected) 03/13/24 19:31 B. pertussis DNA (PCR) Not Detected (NotDetected) 03/13/24 19:31 B.parapertussis DNA PCR Not Detected (NotDetected) 03/13/24 19:31 C. pneumoniae DNA (PCR) Not Detected (NotDetected) 03/13/24 19:31 Coronavirus OC43 (PCR) Not Detected (NotDetected) 03/13/24 19:31 Coronavirus HKU1 (PCR) Not Detected (NotDetected) 03/13/24 19:31 Coronavirus 229E (PCR) Not Detected (NotDetected) 03/13/24 19:31 SARS-CoV-2 (PCR) Not Detected (NotDetected) 03/13/24 19:31 Coronavirus NL63 (PCR) Not Detected (NotDetected) 03/13/24 19:31 Human Metapneumovir PCR Not Detected (NotDetected) 03/13/24 19:31 Influenza Type A (PCR) Not Detected (NotDetected) 03/13/24 19:31 Influenza Type B (PCR) Not Detected (NotDetected) 03/13/24 19:31 M. pneumoniae (PCR) Not Detected (NotDetected) 03/13/24 19:31 Parainfluenza 1 (PCR) Not Detected (NotDetected) 03/13/24 19:31 Parainfluenza 2 (PCR) Not Detected (NotDetected) 03/13/24 19:31 Parainfluenza 3 (PCR) Not Detected (NotDetected) 03/13/24 19:31 Parainfluenza 4 (PCR) Not Detected (NotDetected) 03/13/24 19:31 RSV (PCR) Not Detected (NotDetected) 03/13/24 19:31 Entero/Rhino (PCR) Not Detected (NotDetected) 03/13/24 19:31 Impressions Abdomen/Pelvis CT 03/13/24 19:18 Exam(s): CT ABDOMEN + PELVIS With Contrast IV Amt: 91 cc opti 320 EXAM: CT Abdomen and Pelvis With Intravenous Contrast CLINICAL HISTORY: Reason for exam: Trauma. TECHNIQUE: Axial computed tomography images of the abdomen and pelvis with intravenous contrast. CTDI is 37 mGy and DLP is 1238 mGy-cm. Automated exposure control was utilized for the study. A dose lowering technique was utilized adhering to the principles of ALARA. CONTRAST: Patient received 91 cc opti 320 of IV contrast COMPARISON: CT abdomen/pelvis on 12/02/2022 FINDINGS: Lung bases: Unremarkable. No mass. No consolidation. ABDOMEN: Liver: Unremarkable. No mass. Gallbladder and bile ducts: Cholelithiasis. No ductal dilation. Pancreas: Unremarkable. No mass. No ductal dilation. Spleen: Unremarkable. No splenomegaly. Adrenals: Unremarkable. No mass. Kidneys and ureters: Mild bilateral hydroureteronephrosis. No obstructing ureteral stone identified. Mild prominence of the urothelium in the right renal collecting system may represent ureteritis. Bilateral perinephric fat stranding. Small hypodensity in the right kidney is too small to definitively characterize. Stomach and bowel: Evaluation of the stomach is limited by underdistention. No mucosal thickening. No bowel obstruction or inflammation. PELVIS: Appendix: Normal appendix. Bladder: Bladder wall thickening is concerning for cystitis. Please correlate with urinalysis. Reproductive: Unremarkable as visualized. ABDOMEN and PELVIS: Intraperitoneal space: Unremarkable. No free air. No significant fluid collection. Bones/joints: No acute fracture. No dislocation. Surgical fixation of the proximal left femur. Degenerative changes of the spine. Soft tissues: Unremarkable. Vasculature: Phleboliths in the pelvis. Atherosclerotic changes of the vasculature. No abdominal aortic aneurysm. Lymph nodes: Unremarkable. No enlarged lymph nodes. IMPRESSION: 1. Mild bilateral hydroureteronephrosis. No obstructing ureteral stone identified. Mild prominence of the urothelium in the right renal collecting system may represent ureteritis. Bilateral perinephric fat stranding. 2. Bladder wall thickening is concerning for cystitis. Please correlate with urinalysis. 3. Cholelithiasis. 4. No acute fracture. Electronically signed by: Richard Lizarraga M.D. 03/13/24 20:[address] 03/13/24 19:18 Exam(s): CT C SPINE EXAM: CT Cervical Spine Without Intravenous Contrast CLINICAL HISTORY: Reason for exam: Trauma. TECHNIQUE: Axial computed tomography images of the cervical spine without intravenous contrast. CTDI is 37 mGy and DLP is 1238 mGy-cm. Automated exposure control was utilized for the study. A dose lowering technique was utilized adhering to the principles of ALARA. COMPARISON: CT C-spine on 11/06/2023 FINDINGS: Bones: Normal alignment. No acute fracture or bony lesion. Disc spaces: No subluxation. Mild degenerative changes of the spine. Soft tissues: Normal. Other: Atherosclerotic changes of the vasculature. IMPRESSION: No acute traumatic abnormality. Electronically signed by: Richard Lizarraga M.D. 03/13/24 20:[address] 03/13/24 19:18 Exam(s): CT CHEST With Contrast IV Amt: 91 cc opti 320 EXAM: CT Chest With Intravenous Contrast CLINICAL HISTORY: Reason for exam: Trauma. TECHNIQUE: Axial computed tomography images of the chest with intravenous contrast. CTDI is 37 mGy and DLP is 1238 mGy-cm. Automated exposure control was utilized for the study. A dose lowering technique was utilized adhering to the principles of ALARA. CONTRAST: Patient received 91 cc opti 320 of IV contrast COMPARISON: None FINDINGS: Lungs: Unremarkable. No mass. No consolidation. Pleural space: Unremarkable. No pneumothorax. No significant effusion. Heart: Coronary artery calcifications. No cardiomegaly. No significant pericardial effusion. Bones/joints: Mild degenerative changes of the spine. No acute fracture. No dislocation. Soft tissues: Unremarkable. Vasculature: See above. Lymph nodes: Unremarkable. No enlarged lymph nodes. IMPRESSION: No acute findings in the chest. Electronically signed by: Richard Lizarraga M.D. 03/13/24 20:[address] 03/13/24 19:18 Exam(s): CT HEAD Without Contrast EXAM: CT Head Without Intravenous Contrast CLINICAL HISTORY: Reason for exam: Trauma. TECHNIQUE: Axial computed tomography images of the head/brain without intravenous contrast. CTDI is 37 mGy and DLP is 1238 mGy-cm. Automated exposure control was utilized for the study. A dose lowering technique was utilized adhering to the principles of ALARA. COMPARISON: None FINDINGS: Brain: No acute infarct or hemorrhage identified. No extra-axial fluid collection. No mass effect or midline shift. Scattered areas of hypoattenuation in the supratentorial white matter likely represent chronic small vessel ischemic changes. Ventricles and sulci: Prominence of the ventricles and sulci is likely secondary to cerebral volume loss. Bones: Normal. No bony lesion or acute fracture. Subcutaneous tissues: Normal. Sinuses: Normal. No air-fluid levels or mucosal thickening. Mastoid air cells: Normal. Orbits: Grossly unremarkable. Other: Atherosclerotic calcifications in the intracranial vasculature. IMPRESSION: 1. No definite acute intracranial abnormality. Evaluation is limited by motion artifact. 2. Mild chronic small vessel ischemic changes and cerebral volume loss. Electronically signed by: Richard Lizarraga M.D. 03/13/24 20:54 PM Diagnostic Findings EKG as per my interpretation : Rate 130, sinus tachycardia, normal axis, nonspecific T wave abnormalities
[2024-03-13] MEDS ORDERED: PROMETHAZINE 6.25 MG/50.25 ML BAG IV PRN (23:18)
[2024-03-14 00:29] LABS: Amphetamines+Metham, Urine Neg (Neg); Barbiturates, Urine Neg (Neg); Benzodiazepine, Urine Neg (Neg); Cocaine, Urine Neg (Neg); Fentanyl, Urine Neg (Neg); MDMA (Ecstacy), Urine Neg (Neg); Marijuana, Urine Neg (Neg); Methadone, Urine Neg (Neg); Opiate, Urine Neg (Neg); Phencyclidine, Urine Neg (Neg)
[2024-03-14 00:53] LABS: Base Excess VBG -1.1 mEq/L; HCO3 VBG 24 mmol/L; Oxygen Saturation VBG < 60.0 %; PCO2 VBG 42 mmHg (38-50); PO2 VBG 24 mmHg; pH VBG 7.37 (7.36-7.41)
[2024-03-14] MEDS ORDERED: GLUCAGON FOR INJ 1 MG VIAL SQ PRN (01:35)
[2024-03-14] MEDS ORDERED: GLUCOSE 40% GEL 15 GM TUBE PO PRN (01:35)
[2024-03-14] MEDS ORDERED: GLUCOSE 10 TAB/TUBE PO PRN (01:35)
[2024-03-14] MEDS ORDERED: DEXTROSE 50% 50 ML SYRINGE IV PRN (01:35)
[2024-03-14] MEDS ORDERED: CARBOHYDRATES FOR HYPOGLYCEMIA PO PRN (01:35)
[2024-03-14] MEDS: SODIUM CHLORIDE 0.45 % 1,000 ML IV ONE (02:02)
[2024-03-14] MEDS: METOPROLOL TARTRATE 1 MG/ML VIAL IV STA ×3 (02:03→06:11)
[2024-03-14] MEDS: INSULIN ASPART PER UNIT CHARGE SC SCH (02:03)
[2024-03-14] MEDS: LANTUS PER UNIT CHARGE SQ SCH (02:03)
[2024-03-14] MEDS ORDERED: OLANZapine 10 MG/2.1 ML SDV IM PRN (04:05)
[2024-03-14] MEDS: PIPERACILLIN/TAZOBACTAM 4.5 GM/100 ML BAG IV SCH (04:12)
[2024-03-14] MEDS: OLANZapine 10 MG/2.1 ML SDV IM STA (04:12)
--- NOTE | 2024-03-14 04:43 | Urology Consultation ---
Date of Consultation March 14, 2024 Assessment & Plan (1) Acute UTI (urinary tract infection): Patient has been admitted on the hospital service. From a urologic perspective we recommend the following: Appears of the patient may have obstructive uropathy. His creatinine is above his level of baseline. He has had a Medrano catheter placed and is draining appropriately. Would recommend maintaining his Medrano catheter will follow serial labs to see if his and creatinine improves with this modality. The cause of patient's obstructive uropathy has not been definitively ascertained. As noted in HPI segment of this note the patient has had a recent office cystoscopy for similar problem in the past and tentative cause of his obstructive uropathy was not ascertained. Appears that the patient has an acute urinary tract infection and appropriate antibiotics have been put in place by the admitting service. The patient does have some yeast on his urine specimen we will defer to the hospitalist service that they will place him on any antifungals Appropriate cultures have been sent and these results can be followed and antibiotics be tailored based on these results Consideration be given to performing a voiding trial in the future providing patient's creatinine improves Additional recommendations with forthcoming based on his clinical course as it unfolds History of Present Illness Reason for Consultation: Obstructive uropathy Attending Physician: Mariah Morales MD History of Present Illness This is a 48-year-old male who presented to the emergency department last evening secondary to altered mental status. The patient was discovered by his family being somewhat lethargic and altered and he apparently suffered a ground- level fall at the hospital prompting his visit to the emergency department. At the time of my interview the patient could not provide a great deal of significant information but nursing staff was able to provide some information. The patient was found to be in urinary retention and a Medrano catheter was placed in the emergency department. I did attempt to question the patient on urologic symptomatology and the patient currently denies any fevers, shakes, or chills. He denies any back or flank pain. He notes that he has been attempting to self cath himself at home but could not provide any further details. Of note the patient was seen by [facility] physician group urology in the past. The patient was found to have urinary retention. He was seen by Dr. Macias in the office in December of this year where he had an outpatient cystoscopy that did not identify any cause of patient's urinary retention. The patient did have a Medrano catheter placed temporarily but he did have a voiding trial which he passed. The patient also reportedly has been doing intermittent self catheterizations at home. Since arrival to the emergency department patient has had labs and imaging which independent reviewed. A CT scan of the abdomen pelvis showed mild bilateral hydronephrosis. There is no obstructing kidney stones noted. There is some prominence of the urothelium in the right renal collecting system and some bilateral perinephric fat stranding. The bladder wall was thickened concerning for cystitis. Cervical spine CT scan showed no fractures or subluxations. A CT scan of the chest showed no acute findings in the chest. A CT scan of the head showed no acute intracranial abnormalities. Labs included CBC her white blood cell count was elevated 23.4. Hemoglobin and hematocrit were normal. Platelet count was 541,000. Coagulation studies were normal. Chemistry profile showed sodium was 149 with a potassium of 4.3. BUN and creatinine were 66 and 2.3. Lactic acid level was initially elevated 2.1 but has improved to 1.5. Urinalysis showed turbid urine which was negative for nitrites. There is 3+ leukocyte esterase but there is pyuria with greater than 50 white blood cells per high-power field. There is also bacteria and yeast on the study. A toxicology screen was checked and was negative for all substances tested. Respiratory bio fire was checked and was also negative. At the time of my interview the patient was resting comfortably in bed he was in no distress. Allergies Allergy/AdvReac Type Severity Reaction Status Date / Time adhesive Allergy Intermediate Contact Verified 12/23/23 10:39 dermatitis latex Allergy Mild RASH Verified 12/23/23 10:39 tramadol Allergy Unknown n/v Verified 12/23/23 10:39 Home Medications Medication Instructions Recorded Confirmed Type gabapentin 300 mg capsule 300 mg PO TID 06/16/22 03/13/24 History montelukast 10 mg tablet 10 mg PO QAM 06/16/22 03/13/24 History pantoprazole 40 mg tablet,delayed 40 mg PO QAM 06/16/22 03/13/24 History release aspirin 81 mg tablet,delayed 81 mg PO QAM 01/31/23 03/13/24 History release buspirone 10 mg tablet 10 mg PO BID 01/31/23 03/13/24 History cholecalciferol (vitamin D3) 25 25 mcg PO QDL 01/31/23 03/13/24 History mcg (1,000 unit) capsule (Vitamin D3) duloxetine 60 mg capsule,delayed 60 mg PO QAM 01/31/23 03/13/24 History release atorvastatin 40 mg tablet 40 mg PO QAM 10/19/23 03/13/24 History bupropion HCl 450 mg 24 hr tablet, 450 mg PO QAM 10/19/23 03/13/24 History extended release clonazepam 0.5 mg tablet 0.5 mg PO BID PRN Anxiety 10/19/23 03/13/24 History clopidogrel 75 mg tablet 75 mg PO DAILYBL 10/19/23 03/13/24 History dulaglutide 1.5 mg/0.5 mL 1.5 mg subcut TU 10/19/23 03/13/24 History subcutaneous pen injector (Trulicity) duloxetine 30 mg capsule,delayed 30 mg PO QAM 10/19/23 03/13/24 History release magnesium oxide 400 mg (241.3 mg 400 mg PO QAM 10/19/23 03/13/24 History magnesium) tablet metoprolol succinate 25 mg 25 mg PO BID 10/19/23 03/13/24 History tablet,extended release 24 hr oxybutynin chloride 10 mg 10 mg PO QAM 10/19/23 03/13/24 History tablet,extended release 24 hr ramelteon 8 mg tablet 8 mg PO HS PRN Sleep 10/19/23 03/13/24 History lidocaine HCl 2 % mucosal jelly in 0.5 ml EXT BID PRN catheter Pain 10/26/23 03/13/24 Rx applicator #125 mL L.acidop,casei,lactis,rham-B.lact,ela 1 cap PO DAILY #10 caps 11/15/23 03/13/24 Rx 625 mg (10 billion cell) capsule (Advanced Probiotic) fludrocortisone 0.1 mg tablet 0.1 mg PO QAM #30 tabs 11/15/23 03/13/24 Rx midodrine 5 mg tablet 5 mg PO BID #30 tabs 11/15/23 03/13/24 Rx nicotine 14 mg/24 hr daily 1 patch transdermal DAILY #14 ea 11/15/23 03/13/24 Rx transdermal patch polyethylene glycol 3350 17 gram 17 g PO DAILY #14 ea 11/15/23 03/13/24 Rx oral powder packet (Miralax) sennosides 8.6 mg-docusate sodium 1 tab PO QAM #30 tabs 11/15/23 03/13/24 Rx 50 mg tablet (Senokot-S) thiamine HCl (vitamin B1) 100 mg 100 mg PO QAM #30 tabs 11/15/23 03/13/24 Rx tablet amoxicillin 875 mg-potassium 1 tab PO BID #20 tabs 03/07/24 03/13/24 Rx clavulanate 125 mg tablet Patient History Medical History Noncompliance Central retinal artery occlusion, left eye Diabetic peripheral neuropathy Surgical History S/P arthroscopic knee surgery History of dental surgery Family History Other Cancer Diabetes Hypertension Social History Smoking Status: Never smoker Tobacco Type: Smokeless Tobacco (Dip or Chew) Second Hand Exposure: No; Do You Dip or Chew Tobacco: Yes; Hx Alcohol Use: Yes Alcohol type: beer Hx Substance Use: Yes Last Used Substance: Days (ago) Last Used Substance Other:: Urine tox came back positive for ecstasy, benzos, and marijuana Preferred Language: [place]an Communication Ability: Effective Stamp Machine Servicer Required: No Beliefs That Will Affect Care: None Current Living Situation: Family Current Living Situation Comment: Lives with parents Other Information That Helps Us Care for You: No Feels Safe at Home: Yes Safety Concerns: Feels Safe At This Time Assistive Devices: Cane and Walker Review of Systems Review of Systems: Unobtainable due to cognitive status Physical Exam Constitutional: WD/WN, vitals as above Eyes: no conjunctival abnormality ENMT: Ears: no hearing impairment and no external ear abnormality Mouth: no oropharynx abnormality Neck: trachea midline Respiratory: normal respiratory effort; no respiratory distress and no labored breathing Cardiovascular: Rate/Rhythm: regular rate and regular rhythm Gastrointestinal (Abdomen): Abdomen is soft, nondistended, nontender to palpation Musculoskeletal: No calf tenderness Skin: no rashes Neurologic: Patient is able to move all 4 extremities and follows simple commands without noted focal deficits Psychiatric: At the present time patient is currently alert to person Genitourinary: No CVA tenderness with percussion bilaterally. Medrano catheter is in place and is draining appropriately Results & Data Vital Signs (Past 12 Hours) Vital Signs Temp Pulse Pulse Resp BP BP Pulse Ox 03/14/24 04:27 111 H 160/116 H 03/14/24 04:00 37.0 C 114 H 20 172/125 H 98 03/14/24 02:23 108 H 03/14/24 02:18 103 H 144/90 H 03/14/24 02:03 105 H 174/111 H 03/14/24 01:37 36.8 C 105 H 20 174/111 H 98 03/14/24 00:00 101 H 18 161/120 H 99 03/13/24 23:38 103 H 03/13/24 23:00 100 H 18 173/116 H 99 03/13/24 22:31 102 H 174/117 H 03/13/24 22:08 112 H 164/107 H 03/13/24 22:00 112 H 25 H 164/107 H 100 03/13/24 21:00 113 H 19 170/102 H 98 03/13/24 21:00 98 03/13/24 20:30 37.4 C 119 H 23 158/112 H 99 03/13/24 19:53 124 H 23 168/117 H 98 03/13/24 19:50 124 H 25 H 160/110 H 98 03/13/24 19:47 167/115 H 97 03/13/24 19:37 129 H 03/13/24 19:32 129 H 17 168/108 H 98 03/13/24 19:32 99 03/13/24 19:15 03/13/24 19:15 37.9 C H 130 H 17 161/107 H 97 03/13/24 19:15 37.9 C H 130 H 16 161/107 H 97 O2 Del Method O2 Flow Rate 03/14/24 04:27 03/14/24 04:00 Room Air 03/14/24 02:23 03/14/24 02:18 03/14/24 02:03 03/14/24 01:37 Room Air 03/14/24 00:00 03/13/24 23:38 03/13/24 23:00 03/13/24 22:31 03/13/24 22:08 03/13/24 22:00 Room Air 03/13/24 21:00 Room Air 03/13/24 21:00 Room Air 0 03/13/24 20:30 Room Air 03/13/24 19:53 03/13/24 19:50 03/13/24 19:47 03/13/24 19:37 03/13/24 19:32 03/13/24 19:32 Room Air 03/13/24 19:15 Room Air 03/13/24 19:15 Room Air 03/13/24 19:15 Room Air PG Care Time/CCT Total # of Minutes Spent Total Time Spent with Patient: Total time spent is greater than 50% in coordination of care (as documented) at patient's floor/unit and/or counseling patient: Coding Level of Care Code 42717 IN/OBS CONSULT LVL 4,60M Diagnoses Acute UTI (urinary tract infection) N39.0
--- OUTSIDE RECORDS SUMMARY | 2024-03-14 05:01 | External Medical Summary ---
Author Name Unknown Address Unknown Organization K01:[facility] [place] [address] [facility] [id number] Laboratory Report Ordering Provider Test Date Status TRACE PEARL 03/07/2024 13:36:38 Final Observation Date Value Abnormality Reference (Units ) Status Bacteria identified in Specimen by Culture 03/07/2024 13:36:38 [id number]^KLEBSIELL A PNEUMONIAE Abnormal Final >100,000 colonies/mL Klebsie lla pneumoniae Performing Location [facility] [place] [address] [facility] [id number] Ordering Provider Test Date Status TRACE PEARL 03/07/2024 13:36:38 Final Observation Date Value Abnormality Reference (Units ) Status Ampicillin + Sulbactam 03/07/2024 13:36:38 16 Intermediate Final Cefazolin 03/07/2024 13:36:38 <=4 Susceptible Final Cefepime susceptibility 03/07/2024 13:36:38 <=1 Susceptible Final Ceftriaxone suceptibility 03/07/2024 13:36:38 <=1 Susceptible Final Ciprofloxacin 03/07/2024 13:36:38 <=0.25 Susceptible Final Due to serious side effects, the FDA has advised against using Ciprofloxacin to treat uncomplicated UTIs and respiratory tract infections unless there are no alternative treatment options. Gentamicin susceptibility 03/07/2024 13:36:38 <=1 Susc eptible Final Levofloxacin susceptibility 03/07/2024 13:36:38 1 In termediate Final Due to serious side effects, the FDA has advised against using Levofloxacin to treat uncomplicated UTIs and respiratory tract infections unless there are no alternative treatment options. Nitrofurantoin susceptibility 03/07/2024 13:36:38 128 Resistant Final Piperacillin + Tazobactamsusceptibility 03/07/2024 13:36:38 <=4 Susceptible Final TMP-SMZ susceptibility 03/07/2024 13:36:38 >=320 Resista nt Final Test: Culture, Urine, Quanti tative
Specimen Source: Urine, Clean Catch
Specimen Type: Urine
Specimen Date: 03/07/2024 1336
Result Date: 03/10/2024 1614
Result Status: Final result
Abnormal: Yes
Resulting Lab: [facility] [place]
[address]
[place] [id number]

CULTURE

>100,000 colonies/mL Klebsiella pneumoniae (Abnormal)

SUSCEPTIBILITY

Klebsiella
pneumoniae
METHOD MICROBROTH DILUTIONS

AMPICILLIN/SULBACTAM 16 Intermediate
CEFAZOLIN <=4 Susceptible
CEFEPIME <=1 Susceptible
CEFTRIAXONE <=1 Susceptible
CIPROFLOXACIN <=0.25 Susceptible
[1]
GENTAMICIN <=1 Susceptible
LEVOFLOXACIN 1 Intermediate
[2]
NITROFURANTOIN 128 Resistant
PIPERACILLIN TAZOBACTAM <=4 Susceptible
TRIMETH/SULFAMETHOXAZOLE >=320 Resistant

[1] Due to serious side effects, the FDA has advised against using
Ciprofloxacin to treat uncomplicated UTIs and respiratory tract infections
unless there are no alternative treatment options.

[2] Due to serious side effects, the FDA has advised against using
Levofloxacin to treat uncomplicated UTIs and respiratory tract infections
unless there are no alternative treatment options.

null Performing Location [facility] [place] - [address] [facility] [id number]
--- OUTSIDE RECORDS SUMMARY | 2024-03-14 05:01 | External Medical Summary | Summary of Care ---
Author Name Unknown Organization [facility] Address [address] [place] [address] Phone [phone] Care Team Providers Care Infusion Nurse Name Role Phone Ruben Gordillo MD Primary Care Provider [phone] Reason for Referral * Evaluate & Treat - Unlimited Visits (Within 10 days (routine)) - Authorized Specialty Diagnoses / Procedures [facility] To Contact Neuro/Ortho Surgery - Spine. / Neurological Surgery Diagnoses DDD (degenerative disc disease), lumbar Ruben Gordillo MD [address] [place] [address] Referral ID Status Reason Start Date Expiration Date Visits Requested Visits Authorized [id number] Authorized Specialty Services Required 03/06/2024 [id number] Question Answer Referral Priority Within 10 days (routine) Where should this appointment be scheduled? [facility] spine region: Back - Thoracic/Lumbar Do you have any recent complete loss of bladder or bowel function? Yes - Submit as Urgent * Evaluate & Treat - Unlimited Visits (Within 10 days (routine)) - Authorized Specialty Diagnoses / Procedures [facility] Referred To Contact Pain Management / Pain Medicine Diagnoses DDD (degenerative disc disease), lumbar Ruben Gordillo MD [address] [place] [address] Referral ID Status Reason Start Date Expiration Date Visits Requested Visits Authorized [id number] Authorized Specialty Services Required 03/06/2024 [id number] Question Answer Referral Priority Within 10 days (routine) Where should this appointment be scheduled? [facility] Reason for referral? Interventional Pain Management - (Injection) What condition is the patient being referred for? Lumbar Radiculopathy What is the preferred location to have this test performed? [facility] Patient Name: Shashi Moctezuma Jr. Date of : 1975 Department Phone Number: : [phone] (if unable to have a MRI) is recommended if any of the following apply: 1. Patient has neck or back pain with radiation to extremities. A previous MRI will be accepted if symptoms unchanged since prior MRI. 2. Spinal surgery since last MRI. If yes, order a MRI with and without contrast. 3. Hx or ongoing cancer treatment. Patient will need spine x-ray (Ap/Lat) for axial neck or back pain if not done previously. Fax No. [facility] [phone] or contact manager front [phone] Fax No. [facility] [phone] or contact manager front [phone] Fax No. [facility] [phone] or contact manager front [phone] Reason for Visit * Reason Comments Follow Up Pt here today for 3 month follow up Encounter Details Date Type Department Care Team (Late st Contact Info) Description 03/06/2024 1:00 PM EDT Office Visit [facility] [address] [place] [address] Ruben Gordillo MD [address] [place] [address] DDD (degenerative disc disease), lumbar*; Diabetic peripheral neuropathy (HCC); Atonic neurogenic bladder; Chronic systolic congestive heart failure (HCC); Type 2 diabetes mellitus with hemoglobin A1c goal of less than 7.0% (HCC); HTN, goal below 140/90; Coronary artery disease of [place] artery of [place] heart with stable angina pectoris (HCC); Screening for prostate cancer; Generalized anxiety disorder Allergies Active Allergy Reactions Criticality Noted Date Comments Adhesive Tape 02/09/2023 Latex Rash 02/05/2022 Tramadol Nausea/vomiting 12/02/2014 documented as of this encounter (statuses as of 03/10/2024) Medications Medication Sig Dispensed Refills Start Date End Date Status GLUCOMETER ELITE CLASSIC KITIndications:DM type 2, not at goal (HCC) check blood sugar every morning when you get up 1 Kit 3 2 Active FreeStyle Sadiq 14 Day [place] Device Use as directed . 1 Each 1 2 Active FreeStyle Sadiq 14 Day Sensor Use as directed . 1 Each 11 2 Active Nystatin 477413 UNIT/GM External Cream Apply 1 g topically [...] mg Oral BID (799,1999), Reported on 06/29/2023 Clopidogrel Bisulfate 75 MG Oral Tablet (pLAVix)Indication [...] EVERY MORNING 30 Tablet 11 4 Active BD Pen Needle Mini U/F 31G X 5 MM (Insulin Pen Needle)Indications :DM type 2, not at goal (HCC) USE WITH INSULIN PEN 100 Each 3 4 Active Additional Information Patient not taking.Reported on 09/02/2023 DULoxetine HCl 60 MG Oral Capsule Delayed Release Particles (Cymbalta) Take 1 Capsule by mouth in the morning. Do not cut, crush or chew. 90 Capsule 3 4 Active Riboflavin 400 MG Oral Tablet TAKE 1 TABLET BY MOUTH EVERY MORNING 90 Tablet 3 4 Active Gabapentin 300 MG Oral Capsule (Neurontin) TAKE 1 CAPSULE BY MOUTH THREE TIMES DAILY EVERY MORNING, AT NOON, AND BEFORE BEDTIME 270 Capsule 1 4 Active Aspirin Low Dose 81 MG Oral Tablet Delayed Release (aspirin enteric coated)Indications :DM type 2, not at goal (HCC),HTN, goal below 130/80 TAKE 1 TABLET BY MOUTH EVERY MORNING 90 Tablet 1 4 Active Saccharomyces boulardii 250 MG Oral Capsule (Florastor) Take 1 Capsule by mouth in the morning and 1 Capsule before bedtime. 4 Active Nicotine 14 MG/24HR Transdermal Patch 24 Hour (Nicoderm CQ) Place 1 Patch over 24 hours topically on the skin in the morning. On upper body/outer arm, change once a day for two weeks.. 28 Patch 5 4 Active Midodrine HCl 5 MG Oral Tablet (Proamatine) Take 1 Tablet by mouth at noon and 1 Tablet in the evening. 180 Tablet 3 4 Active Benazepril HCl 10 MG Oral Tablet (Lotensin)Indicati ons:Diabetic nephropathy associated with type 2 diabetes mellitus (HCC) Take 1 Tablet by mouth in the morning. 30 Tablet 5 4 Active clonazePAM 0.5 MG Oral Tablet (KlonoPIN) TAKE ONE TABLET BY MOUTH TWICE DAILY NEEDED FOR ANXIETY 60 Tablet 1 4 Active DULoxetine HCl 30 MG Oral Capsule Delayed Release Particles (Cymbalta) Take 1 Capsule by mouth in the morning. Take with the 60 mg capsule, for a total of 90 mg a day. 30 Capsule 3 4 Active Montelukast Sodium 10 MG Oral Tablet (Singulair) TAKE 1 TABLET BY MOUTH EVERY MORNING 90 Tablet 3 4 Active buPROPion HCl ER (XL) 450 MG Oral Tablet Extended Release 24 Hour (Forvifo XL) TAKE 1 TABLET BY MOUTH EVERY MORNING 30 Tablet 2 4 Active Ramelteon 8 MG Oral Tablet (Rozerem) Take 1 Tablet by mouth at bedtime. 90 Tablet 1 4 Active Magnesium Oxide -Mg Supplement 400 (240 Mg) MG Oral Tablet (Mag-Ox) TAKE 1 TABLET BY MOUTH EVERY MORNING 90 Tablet 1 4 Active Baclofen 20 MG Oral Tablet Take 1 Tablet by mouth in the morning and 1 Tablet before bedtime. 60 Tablet 3 4 Active Fiber/D3 Adult Gummies 2.5-500 GM-UNIT Oral Tablet Chewable (Inulin-Cholecalci ferol) Take by mouth. 024 Discontinued(Noah corbin preference/disc ontinuation) Pantoprazole Sodium 40 MG Oral Tablet Delayed Release (Protonix) TAKE 1 TABLET BY MOUTH EVERY 30 MINUTES BEFORE THE FIRST MEAL OF THE DAY. DO NOT CRUSH, CHEW OR SPLIT TABLET 30 Tablet 5 4 024 Discontinued busPIRone HCl 10 MG Oral Tablet (Buspar) TAKE ONE TABLET BY MOUTH IN THE MORNING AND ONE BEFORE BEDTIME 60 Tablet 5 4 024 Discontinued Fludrocortisone Acetate 0.1 MG Oral Tablet (Florinef) TAKE 1 TABLET BY MOUTH ONCE DAILY 30 Tablet 4 024 Discontinued Metoprolol Succinate ER 25 MG Oral Tablet Extended Release 24 Hour (toPROL XL) TAKE 1 TABLET BY MOUTH TWICE DAILY every morning and before bedtime 180 Tablet 3 4 024 Discontinued documented as of this encounter (statuses as of 03/10/2024) Active Problems Problem Noted Date Diagnosed Date History of hip surgery 02/09/2023 Non healing left heel wound 11/10/2022 S/P angioplasty with stent 06/23/2022 Coronary artery disease of n ative artery of [place] heart with stable angina pectoris 06/23/2022 Ischemic cardiomyopathy 05/22/2022 Systolic congestive heart failure 05/22/2022 Diabetic peripheral neuropathy 04/10/2022 Retinal artery occlusion, central, left 02/06/20 Bilateral knee pain 03/01/2015 Sleep disturbance 03/01/2015 HTN, goal below 140/90 09/05/2014 Type 2 diabetes mellitus wit h hemoglobin A1c goal of less than 7.0% 02/19/2014 Overview: ICD-10 update of inactive term History of smoking 02/23/2012 MED (generalized anxiety disorder) 07/08/2011 OA (osteoarthritis) of knee 07/08/2011 Family history of diabetes mellitus (DM) 012 Insomnia due to other mental disorder 10/12/2008 Overview: ICD-10 update of inactive term Dyslipidemia, goal LDL below 100 Bipolar 1 disorder, depressed documented as of this encounter (statuses as of 03/10/2024) Resolved Problems Problem Noted Date Diagnosed Date [...] update of inactive diagnosis Hyperglycemia 07/08/2011 07/21/2011 HTN, goal below 140/90 10/12/200807/21 Adjustment disorder with depressed mood 10/12/2008 02/23/2012 DM type 2, not at goal 04/10 HTN, goal below 130/80 01/27 Overview: Per HTN Protocol #27. HTN, goal below 140/80 09/05 documented as of this encounter (statuses as of 03/10/2024) Immunizations Name Administration Dates Next Due Hepatitis B, 20+ yrs 08/31/2013 Pneumococcal Polysaccharide PPV23 (Pneumovax) Seasonal Influenza Vac., MDV, IM, 0.5 mL (Fluzon e) 02/25/2015,02/23/2012 02/26/2016 Seasonal Influenza, MDCK, Trivalent, PF, (Flucel vax) 05/02/2013 TD - Tetanus/Diptheria (ADULT) 06/07/2007 TDAP (age [...] the money to buy more. Never true 01/07/20 24 Within the past 12 months, t he food you bought just didn't last and you didn't have money to get more. Never true 01/07/2024 Childcare Answer Date Recorded Do you feel overwhelmed with taking care of a child, family member or friend? No 01/07/2024 Does your family need help f inding childcare? (Household - for ages 0-17 years) Not on file 01/07/2024 Clothing Answer Date Recorded Have you been unable to get clothing when it was really needed? No 01/07/2024 Is your family able to get c lothes or diapers when needed? (Household - for ages 0-17 years) Not on file 01/07/2024 Personal Safety Answer Date Recorded Do you feel unsafe or have concerns for your saf ety? No 01/07/2024 Do you have concerns for you r family's safety? (Household - for ages 0-17 years) Not on file 01/07/2024 Utilities Answer Date Recorded Do you have trouble paying y our heating, water, or electric bill? No 01/07/2024 Is your family able to pay t he heat, water, or electric bill? (Household - for ages 0-17 years) Not on file 01/07/2024 Does your family have access to good internet? (Household - for ages 0-17 years) Not on file 01/07/2024 Employment Status Answer Date Recorded Are you unemployed or without regular income? No 01/07/2024 Does the household have a [facility] source of income? (Household - for ages 0-17 years) Not on file 01/07/2024 Social Connections Answer Date Recorded How often do you feel lonely or isolated from th ose around you? Often 01/07/2024 Financial Resource Strain Answer Date R ecorded Do you have any trouble payi ng for your medications, or do you think you might in the future? No 01/07/2024 Does your family have troubl e paying for medicine? (Household - for ages 0-17 years) Not on file 01/07/2024 Transportation Needs Answer Date Record ed READ ONLY Do you have troubl e getting a ride to medical visits or work? Never True 01/07/2024 Does your family have a hard time getting a ride to doctors visits? (Household - for ages 0-17 years) Not on file 01/07/2024 Has lack of transportation k ept you from medical appointments, meetings, work, or from getting things needed for daily living? Check all that apply. No 01/07/2024 Do you (or your family) have trouble finding or paying for a ride (transportation)? (Household - for ages 0-17 years) Not on file 01/07/2024 Housing Stability Answer Date Recorded Do you currently live in a s helter or have no steady place to sleep at night? No 01/07/2024 READ ONLY Do you think you a re at risk of becoming homeless? No 01/07/2024 Does your family worry about paying for your home or becoming homeless? (Household - for ages 0-17 years) Not on file 0 01/07/2024 Are you homeless or worried that you might be in the future? No 01/07/2024 Are you (or your family) yulisa eless or worried that you might be in the future? (Household - for ages 0-17 years) Not on file Food Insecurity Answer Date Recorded Do you need food for this week? No 01/07/2024 Are you able to get enough f ood for your family? (Household - for ages 0-17 years) Not on file 01/07/2024 Does your family need food t his week? (Household - for ages 0-17 years) Not on file 01/07/2024 Do you always have enough fo od for your family? (Household - for ages 0-17 years) Not on file 01/07/2024 Sex and Gender Information Value Date Recorded Sex Assigned at Male 02/05/2022 4:45 PM EDT Gender Identity Male 02/05/2022 4:45 PM EDT Sexual Orientation Straight 02/05/2022 4: 45 PM EDT Job Start Date Occupation Industry Not on file Not on file Not on file documented as of this encounter Last Filed Vital Signs Vital Sign Reading Time Taken Comments Blood Pressure 128/82 03/06/2024 12:53 PM EDT Pulse 104 03/06/2024 12:53 PM EDT Temperature 36.6 C (97.8 F) 03/06/2024 12:53 PM E DT Respiratory Rate 18 03/06/2024 12:53 PM EDT Oxygen Saturation 97% 03/06/2024 12:53 PM EDT Inhaled Oxygen Concentration - - Weight 88.9 kg (196 lb) 03/06/2024 12:53 PM EDT Height - - Body Mass Index 26.58 02/19/2023 3:44 PM EDT documented in this encounter Progress Notes * Ruben Gordillo MD - 03/06/2024 1:06 PM EDT Subjective Shashi Moctezuma Jr. is a 48 year old male. Chief Complaint Patient presents with Follow Up Pt here today for 3 month follow up HPI: Here for routine check up C/p bladder issue and chronic progressing legs pain, back pain Had MRI lumbar done in october which showed multilevel DDD but not significant spinal stenosis or disc herniation Will refer to pain medicine and spinal surgery Type 2 DM, taking meds F/u with ophth Diet - encouraged Known CAD, ischemic CMP, HTN , orthostatic hypotension , systolic CHF< stable Taking meds and f/u with cardio Stopped beta vera due to hypotension Depression anxiety PMH: Patient Active Problem List Diagnosis Generalized anxiety disorder OA (osteoarthritis) of knee Family history of diabetes mellitus (DM) Dyslipidemia, goal LDL below 100 Bipolar 1 disorder, depressed (HCC) History of smoking Type 2 diabetes mellitus with hemoglobin A1c goal of less than 7.0% (HCC) HTN, goal below 140/90 Bilateral knee pain Sleep disturbance Retinal artery occlusion, central, left Diabetic peripheral neuropathy (HCC) Ischemic cardiomyopathy Systolic congestive heart failure (HCC) S/P angioplasty with stent Coronary artery disease of [place] artery of [place] heart with stable angina pectoris (HCC) Non healing left heel wound History of hip surgery Current Outpatient Medications Medication Sig Dispense Refill GLUCOMETER ELITE CLASSIC KIT check blood sugar every morning when you get up 1 Kit 3 FreeStyle Sadiq 14 Day [place] Device Use as directed . 1 Each 1 FreeStyle Sadiq 14 Day Sensor Use as directed . 1 Each 11 Nystatin 352628 UNIT/GM External Cream Apply 1 g topically to affected area in the morning and 1 g before bedtime. To affacted area for two weeks.. 30 g 5 Dulaglutide 1.5 MG/0.5ML Subcutaneous Solution Pen-injector ([employer]) Inject 1.5 mg under the skin once a week. 2 mL 11 metFORMIN HCl ER 500 MG Oral Tablet Extended Release 24 Hour (Glucophage XR) TAKE 2 TABLETS BY MOUTH TWICE DAILY WITH MORNING AND EVENING MEALS (Patient taking differently: Take 1 Tablet by mouth in the morning and 1 Tablet in the evening.) 360 Tablet 3 Clopidogrel Bisulfate 75 MG Oral Tablet (pLAVix) Take 1 Tablet by mouth every afternoon. 90 Tablet 3 Atorvastatin Calcium 40 MG Oral Tablet (Lipitor) Take 1 Tablet by mouth in the morning. 90 Tablet 3 Jardiance 10 MG Oral Tablet (Empagliflozin) TAKE 1 TABLET BY MOUTH EVERY MORNING 30 Tablet 11 DULoxetine HCl 60 MG Oral Capsule Delayed Release Particles (Cymbalta) Take 1 Capsule by mouth in the morning. Do not cut, crush or chew. 90 Capsule 3 Riboflavin 400 MG Oral Tablet TAKE 1 TABLET BY MOUTH EVERY MORNING 90 Tablet 3 Pantoprazole Sodium 40 MG Oral Tablet Delayed Release (Protonix) TAKE 1 TABLET BY MOUTH EVERY 30 MINUTES BEFORE THE FIRST MEAL OF THE DAY. DO NOT CRUSH, CHEW OR SPLIT TABLET 30 Tablet 5 busPIRone HCl 10 MG Oral Tablet (Buspar) [...] BY MOUTH EVERY MORNING 90 Tablet 1 Nicotine 14 MG/24HR Transdermal Patch 24 Hour (Nicoderm CQ) Place 1 Patch over 24 hours topically on the skin in the morning. On upper body/outer arm, change once a day for two weeks.. 28 Patch 5 Midodrine HCl 5 MG Oral Tablet (Proamatine) Take 1 Tablet by mouth at noon and 1 Tablet in the evening. 180 Tablet 3 Benazepril HCl 10 MG Oral Tablet (Lotensin) Take 1 Tablet by mouth in the morning. 30 Tablet 5 clonazePAM 0.5 MG Oral Tablet (KlonoPIN) TAKE ONE TABLET BY MOUTH TWICE DAILY NEEDED FOR [id number] Tablet 1 DULoxetine HCl 30 MG Oral Capsule Delayed Release Particles (Cymbalta) Take 1 Capsule by mouth in the morning. Take with the 60 mg capsule, for a total of 90 mg a day. 30 Capsule 3 Montelukast Sodium 10 MG Oral Tablet (Singulair) TAKE 1 TABLET BY MOUTH EVERY MORNING 90 Tablet 3 Fludrocortisone Acetate 0.1 MG Oral Tablet (Florinef) TAKE 1 TABLET BY MOUTH ONCE DAILY 30 Tablet 0 buPROPion HCl ER (XL) 450 MG Oral Tablet Extended Release 24 Hour (Forvifo XL) TAKE 1 TABLET BY MOUTH EVERY MORNING 30 Tablet 2 Ramelteon 8 MG Oral Tablet (Rozerem) Take 1 Tablet by mouth at bedtime. 90 Tablet 1 Magnesium Oxide -Mg Supplement 400 (240 Mg) MG Oral Tablet (Mag-Ox) TAKE 1 TABLET BY MOUTH EVERY MORNING 90 Tablet 1 Baclofen 20 MG Oral Tablet Take 1 Tablet by mouth in the morning and 1 Tablet before bedtime. 60 Tablet 3 BD Pen Needle Mini U/F 31G X 5 MM (Insulin Pen Needle) USE WITH INSULIN PEN (Patient not taking: Reported on 09/02/2023) 100 Each 3 Saccharomyces boulardii 250 MG Oral Capsule (Florastor) Take 1 Capsule by mouth in the morning and 1 Capsule before bedtime. (Patient not taking: Reported on 03/06/2024) No current facility-administered medications for this visit. Past Medical History: Diagnosis Date Bipolar 1 disorder, depressed ([facility]) new psychiatrist this week at [facility] in [place] DM type 2, not at goal ([facility]) 07/19 Dyslipidemia, goal LDL below 100 HTN, goal below 140/80 Renal colic Past Surgical History: Procedure Laterality Date DENTAL SURGERY PROCEDURE NEC Teeth Top pulled out KNEE ARTHROSCOPY EDU AR TRANSCATH STENT INIT VESSEL,PERCUT Review of patient's allergies indicates: Allergen Reactions Adhesive Tape Latex Rash Tramadol Nausea/vomiting Family History Problem Relation Name Age of Onset Hypertension Father Hypertension Mother Cancer Father Prostate Diabetes Grandmother (Maternal) Family Status Relation Status Fa (Not Specified) Mo (Not Specified) MGMA (Not Specified) Social History Socioeconomic History Marital status: Spouse name: Not on file Number of children: Not on file Years of education: Not on file Highest education level: Not on file Occupational History Not on file Tobacco Use Smoking status: Former Current packs/day: 0.00 Average packs/day: 2.0 packs/day for 20.0 years (40.0 ttl pk-yrs) Types: Cigarettes Start date: 01/06/2020 Quit date: 01/09/2020 Years since quittin.1 Passive exposure: Past Smokeless tobacco: Current Types: Chew Tobacco comments: 1 pack every 3 days Vaping Use Vaping status: Never Used Substance and Sexual Activity Alcohol use: Never Drug use: Not Currently Frequency: 7.0 times per week Types: Marijuana, Heroin 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 (Adult - for ages 18 years and over): No Does your family have trouble paying for medicine? (Household - for ages 0-17 years): Not on file Food Insecurity: No Food Insecurity (01/07/2024) Food Insecurity Do you need food for this week? (Adult - for ages 18 years and over): No Are you able to get enough food for your family? (Household - for ages 0-17 years): Not on file Does your family need food this week? (Household - for ages 0-17 years): Not on file Do you always have enough food for your family? (Household - for ages 0-17 years): Not on file Transportation Needs: No Transportation Needs (01/07/2024) Transportation Needs Do you have trouble getting a ride to medical visits or work? (Adult - for ages 18 years and over):Never True Does your family have a hard time getting a ride to doctors visits? (Household - for ages 0-17 years): Not on file Has lack of transportation kept you from medical appointments, meetings, work, or from getting things needed for daily living? Check all that apply. (Adult - for ages 18 years and over): No Do you (or your family) have trouble finding or paying for a ride (transportation)? (Household - for ages 0-17 years): Not on file Social Connections: Socially Isolated (01/07/2024) Social Connections How often do you feel lonely or isolated from those around you? (Adult - for ages 18 years and over): Often Housing Stability: Low Risk (01/07/2024) Housing Stability Do you currently live in a halfway or have no steady place to sleep at night? (Adult - for ages 18 years and over): No Do you think you are at risk of becoming homeless? (Adult - for ages 18 years and over): No Does your family worry about paying for your home or becoming homeless? (Household - for ages 0-17 years): Not on file Are you homeless or worried that you might be in the future? (Adult - for ages 18 years and over): No Are you (or your family) homeless or worried that you might be in the future? (Household - for ages0-17 years): Not on file Review of Systems Constitutional: Positive for activity change (declining) and fatigue. Negative for appetite change,chills, diaphoresis, fever and unexpected weight change. HENT: Negative for hearing loss. Respiratory: Positive for shortness of breath (on exertion occ). Negative for cough, chest tightness and wheezing. Cardiovascular: Positive for palpitations. Negative for chest pain and leg swelling. Gastrointestinal: Negative for abdominal distention and abdominal pain. Endocrine: Negative. Genitourinary: Positive for difficulty urinating. Musculoskeletal: Positive for arthralgias, back pain and gait problem. Allergic/Immunologic: Positive for environmental allergies. Neurological: Positive for dizziness, weakness (legs), light-headedness and numbness. Psychiatric/Behavioral: Positive for dysphoric mood and sleep disturbance. Negative for agitation and behavioral problems. The patient is nervous/anxious. Objective BP 128/82 | Pulse 104 | Temp 36.6 C (97.8 F) (Tympanic) | Resp 18 | Wt 88.9 kg (196 lb) | SpO2 97% | BMI 26.58 kg/m | BSA 2.13 m Physical Exam Constitutional: General: He is not in acute distress. Appearance: Normal appearance. He is not ill-appearing, toxic-appearing or diaphoretic. HENT: Head: Normocephalic and atraumatic. Nose: Nose normal. Eyes: Extraocular Movements: Extraocular movements intact. Cardiovascular: Rate and Rhythm: Normal rate and regular rhythm. Pulses: Normal pulses. Heart sounds: Normal heart sounds. No murmur heard. Pulmonary: Effort: Pulmonary effort is normal. No respiratory distress. Breath sounds: Normal breath sounds. No stridor. No wheezing, rhonchi or rales. Chest: Chest wall: No tenderness. Musculoskeletal: General: Tenderness present. Cervical back: Normal range of motion. Right lower leg: No edema. Left lower leg: No edema. Neurological: General: No focal deficit present. Mental Status: He is alert and oriented to person, place, and time. Psychiatric: Behavior: Behavior normal. Comments: Depression anxiety ASSESSMENT/PLAN: DDD (degenerative disc disease), lumbar (Primary) - PAIN MEDICINE REFERRAL OP - SPINE SURGERY REFERRAL OP Diabetic peripheral neuropathy (HCC) - HEMOGLOBIN A1C; Future; Expected date: 03/06/2024 - COMPREHENSIVE METABOLIC PANEL; Future; Expected date: 03/06/2024 - CBC WITH WBC DIFFERENTIAL; Future; Expected date: 03/06/2024 Atonic neurogenic bladder Chronic systolic congestive heart failure (HCC) Type 2 diabetes mellitus with hemoglobin A1c goal of less than 7.0% (HCC) - HEMOGLOBIN A1C; Future; Expected date: 03/06/2024 HTN, goal below 140/90 Coronary artery disease of [place] artery of [place] heart with stable angina pectoris (HCC) Screening for prostate cancer - PSA; Future; Expected date: 03/06/2024 Generalized anxiety disorder Other orders - Baclofen 20 MG Oral Tablet; Take 1 Tablet by mouth in the morning and 1 Tablet before bedtime. Follow Up: Return in about 3 months (around 06/05/2024) for Clinic Visit. | For: Clinic Visit | Check-out note: Pain medicine and spinal surgery referral Baclofen, back brace F/u with pain medicine F/u labs Cont meds Diet Ruben Gordillo MD documented in this encounter Nursing Notes * Sandra Haddad LPN - 03/06/2024 12:45 PM EDT Chief Complaint Patient presents with Follow Up Pt here today for 3 month follow up documented in this encounter Plan of Treatment Upcoming Encounters Date Type Department Care Team (Late st Contact Info) Description 04/04/2024 1:30 PM EDT Office Visit Orthopaedics Spine Surgery, [facility] [address] [phone] Enoch Garrison MD [address] [place] [place] [phone] 04/13/2024 2:15 PM EST Office Visit Interventional Pain Center, [facility] [address] [place] [phone] Lee Torres DO [address] [place] [phone] 05/03/2024 1:00 PM EST PulmDiagnostic Sleep Lab Anurag Bunch [address] [facility] [place] [id number] Bunch, Sleep Med Home Study Anurag [address] [facility] [place] [phone] 05/05/2024 9:30 AM EST Telemedicine Psychiatry [facility] [place] [address] [place] [phone] Mauri Macias DO [address] [place] [phone] 06/05/2024 1:00 PM EST Office Visit [facility] [address] [place] [phone] Ruben Gordillo MD [address] [place] [address] 06/13/2024 3:40 PM EST Office Visit Neurology [facility] [address] [place] [address] Ernie Asif, DO [address] [place] [address] Scheduled Referrals Name Type Priority Associated Diagnoses Orde r Schedule PAIN MEDICINE REFERRAL OP Referral Within 10 days (routine) DDD (degenerative disc disease), lumbar Ordered: 03/06/2024 SPINE SURGERY REFERRAL OP Referral Within 10 days (routine) DDD (degenerative disc disease), lumbar Ordered: 03/06/2024 Health Maintenance Due Date Last Done Comments Pneumococcal Vaccine: Pediatrics (0 to 5 Years) and At-Risk Patients (6 to 64 Years) (2 of 2 - PCV) 02/22/2013 02/23/2012 Cologuard 2021 Colonoscopy 2021 Colorectal Cancer Screening 2021 Fecal Occult Blood Test 2021 Sigmoidoscopy 2021 COVID-19 Vaccine ( season) 2024 Influenza Vaccine (FLU shot) (#1) 2024 02/25/2015, 05/02/2013, 02/23/2012 Depression Monitoring 09/01/2024 09/02/2023 HbA1c 09/03/2024 03/06/2024, 11/05, 06/18/2023, Additional history exists Albumin/Creatinine Ratio 12/06/2024 024, 01/11/2023, 11/30/2014, Additional history exists GFR 03/06/2025 03/06/2024, 11/05, 11/16/2023, Additional history exists DTap/Tdap Vaccines (2 - Td or Tdap) 10/30/2032 10/30/2022, 06/07/2007 Hepatitis B Vaccine Discontinued 08/31/2013 Diabetic Foot Exam Discontinued 11/30/2014, 0 01/29/2014, 01/11/2013, Additional history exists Diabetic Eye Exam Discontinued 12/21/2022, , 02/17/2013 HIV Screening Discontinued HPV (Gardasil) Vaccine Aged Out No lo nger eligible based on patient's age to complete this topic Hepatitis C Screening Discontinued MENINGOCOCCAL (MENACTRA/MENVEO) Aged Out No longer eligible based on patient's age to complete this topic documented as of this encounter Medical Devices Not on filedocumented as of this encounter Results * (ABNORMAL) COMPREHENSIVE METABOLIC PANEL (03/06/2024 1:29 PM EDT) BUN 14 6 - 20 mg/dL 03/07/2024 1:00 AM EDT [facility] CREATININE 1.4(H) 0.6 - 1.2 mg/dL 03/07/2024 1:00 AM EDT [facility] EGFR 61 >=60 mL/min 03/07/2024 1:00 AM EDT [facility] Comment:eGFR is calculated b ased on the CKD-EPI 2020 equation. SODIUM 139 135 - 146 mmol/L 03/07/2024 1:00 AM EDT [facility] POTASSIUM 4.4 3.5 - 5.1 mmol/L 03/07/2024 1:00 AM EDT [facility] CHLORIDE 102 98 - 107 mmol/L 03/07/2024 1:00 AM EDT [facility] CO2 25 22 - 32 mmol/L 03/07/2024 1:00 AM EDT [facility] ANION GAP 12 7 - 15 mmol/L 03/07/2024 1:00 AM EDT [facility] GLUCOSE 119 70 - 120 mg/dL 03/07/2024 1:00 AM EDT [facility] Albumin 4.1 3.8 - 5.0 g/dL 03/07/2024 1:00 AM EDT [facility] AST 14 10 - 50 U/L 03/07/2024 1:00 AM EDT [facility] Alkaline Phosphatase 80 35 - 130 U/L 03/07/2024 1:00 AM EDT [facility] Bilirubin, Total 0.8 <=1.2 mg/dL 03/07/2024 1:00 AM EDT [facility] CALCIUM 9.4 8.4 - 10.2 mg/dL 03/07/2024 1:00 AM EDT [facility] Protein 6.5 6.0 - 8.3 g/dL 03/07/2024 1:00 AM EDT [facility] ALT 14 10 - 50 U/L 03/07/2024 1:00 AM EDT [facility] Blood Venous blood specimen / Unknown Venipuncture / Unknown 03/06/2024 1:29 PM EDT 03/06/2024 1:29 PM EDT Ruben Gordillo MD LAB BLOOD ORDERABLES [facility] [address] [place] [address] * (ABNORMAL) PSA (03/06/2024 1:29 PM EDT) PSA 7.74(H) <2.00 ng/mL 03/07/2024 1:02 AM EDT [facility] Blood Venous blood specimen / Unknown Venipuncture / Unknown 03/06/2024 1:29 PM EDT 03/06/2024 1:29 PM EDT Ruben Gordillo MD LAB BLOOD ORDERABLES [facility] [address] [place] [address] * (ABNORMAL) HEMOGLOBIN A1C (03/06/2024 1:29 PM EDT) Hemoglobin A1C 7.3(H) 4.0 - 5.6 % 03/07/2024 1:03 AM EDT [facility] Comment:The use of HbA1c to monitor glycemic status is based on normal hemoglobin and HbA composition. This test should not be used in patients with abnormal hemoglobin that affects the half life of the red blood cell or the in vivo glycation rates. Estimated Average Glucose 163(H) <126 mg/dL 03/07/2024 1:03 AM EDT [facility] Blood Venous blood specimen / Unknown Venipuncture / Unknown 03/06/2024 1:29 PM EDT 03/06/2024 1:29 PM EDT Ruben Gordillo MD LAB BLOOD ORDERABLES Performing Organization Address [facility] de Phone Number [facility] [address] [place] [address] documented in this encounter Visit Diagnoses Diagnosis DDD (degenerative disc disease), lumbar- Primary Degeneration of lumbar or lumbosacral intervertebral disc Diabetic peripheral neuropathy (HCC) Type II or unspecified type diabetes mellitus with neurological manifestations, not stated as uncontrolled Atonic neurogenic bladder Neurogenic bladder, NOS Chronic systolic congestive heart failure (HCC) Chronic systolic heart failure Type 2 diabetes mellitus with hemoglobin A1c goal of less than 7.0% (HCC) HTN, goal below 140/90 Unspecified essential hypertension Coronary artery disease of [place] artery of [place] heart with stable angina pectoris (HCC) Screening for prostate cancer Special screening for malignant neoplasm of prostate Generalized anxiety disorder documented in this encounter Care Teams Infusion Nurse Relationship Specialty Start Date End Date Ruben Gordillo MD [address] [place] [id number] PCP - General Internal Medicine 02/05/22 documented as of this encounter"
--- OUTSIDE RECORDS SUMMARY | 2024-03-14 05:01 | External Medical Summary ---
Author Name Unknown Address Unknown Organization K01:[facility] [place] [address] [facility] [address] Laboratory Report Ordering Provider Test Date Status TRACE PEARL 03/07/2024 13:36:38 Final Observation Date Value Abnormality Reference (Units ) Status Color of Urine by Auto 03/07/2024 13:36:38 Light Yellow Colorless, Light Yellow, Yellow, Dark Yellow Final Clarity, Urine 03/07/2024 13:36:38 Clear Clear Final Glucose [Mass/volume] in Urine by Automated test strip 03/07/2024 13:36:38 >=1000 Abnormal Negative (mg/dL) Final Bilirubin.total [Presence] in Urine by Automated test strip 03/07/2024 13:36:38 Negative Negative Final Ketones [Mass/volume] in Urine by Automated test strip 03/07/2024 13:36:38 Negative Negative (mg/dL) Final Specific gravity, Urine 03/07/2024 13:36:38 1.018 1.003-1.030 Final Hemoglobin [Presence] in Urine by Automated test strip 03/07/2024 13:36:38 Negative Negative Final pH, Urine 03/07/2024 13:36:38 6.0 5.0-7.5 (Units) Final Protein [Mass/volume] in Urine by Automated test strip 03/07/2024 13:36:38 Trace Abnormal Negative (mg/dL) Final Urobilinogen [Mass/volume] in Urine by Automated test strip 03/07/2024 13:36:38 Normal Normal (mg/dL) Final Nitrite [Presence] in Urine by Automated test strip 03/07/2024 13:36:38 Negative Negative Final Leukocyte esterase [Presence] in Urine by Automated test strip 03/07/2024 13:36:38 Moderate Abnormal Negative Final RBC, Urine 03/07/2024 13:36:38 0-2 0-2 (/HPF) Final WBC, Urine 03/07/2024 13:36:38 50+ Abnormal 0-2 (/HPF) Final Bacteria [#/area] in Urine sediment by Microscopy high power field 03/07/2024 13:36:38 >200 Abnormal 0-25 (/HPF) Final Performing Location [facility] [place] [facility] [address] [facility] [id number]
--- OUTSIDE RECORDS SUMMARY | 2024-03-14 05:01 | External Medical Summary | Summary of Care ---
Author Name Unknown Organization [facility] Address [address] [place] [address] Phone [phone] Care Team Providers Care Java Systems Analyst Name Role Phone Ruben Gordillo MD Primary Care Provider [phone] Reason for Visit * - Pending Review Specialty Diagnoses / Procedures Referred By Kike roberts Referred To Contact Referral ID Status Reason Start Date Expiration Date V isits Requested Visits Authorized [id number] Pending Review 04/07/2023 04/05/[phone] Encounter Details Date Type Department Care Team (Late st Contact Info) Description 03/09/2024 1:30 PM EDT Telemedicine Psychiatry [facility] [address] [place] [address] Mauri Macias DO [address] [place] [address] MED (generalized anxiety disorder)*; Panic disorder; Major depressive disorder, recurrent episode, moderate (HCC); Insomnia due to other mental disorder Allergies Active Allergy Reactions Criticality Noted Date Comments Adhesive Tape 02/09/2023 Latex Rash 02/05/2022 Tramadol Nausea/vomiting 12/02/2014 documented as of this encounter (statuses as of 03/09/2024) Medications Medication Sig Dispensed Refills Start Date End Date Status GLUCOMETER ELITE CLASSIC KITIndications:DM type 2, not at goal (HCC) check blood sugar every morning when you get up 1 Kit 3 2 Active FreeStyle Sadiq 14 Day [place] Device Use as directed . 1 Each 1 2 Active FreeStyle Sadiq 14 Day Sensor Use as directed . 1 Each 11 09/202 2 Active Nystatin 366093 UNIT/GM External Cream Apply 1 g topically [...] 06/29/2023 Clopidogrel Bisulfate 75 MG Oral Tablet (pLAVix)Indications [...] Active Benazepril HCl 10 MG Oral Tablet (Lotensin)Indicatio ns:Diabetic nephropathy associated with type 2 diabetes mellitus [...] EVERY MORNING 90 Tablet 1 4 Active Fludrocortisone Acetate 0.1 MG Oral Tablet (Florinef) TAKE 1 TABLET BY MOUTH ONCE DAILY 30 Tablet 4 Active Baclofen 20 MG Oral Tablet Take 1 Tablet by mouth in the morning and 1 Tablet before bedtime. 60 Tablet 3 4 Active Pantoprazole Sodium 40 MG Oral Tablet Delayed Release (Protonix) TAKE 1 TABLET BY MOUTH EVERY 30 MINUTES BEFORE THE FIRST MEAL OF THE DAY. DO NOT CRUSH, CHEW OR SPLIT TABLET 90 Tablet 2 4 Active busPIRone HCl 15 MG Oral Tablet (Buspar) Take 1 Tablet by mouth in the morning and 1 Tablet before bedtime. 60 Tablet 2 4 Active busPIRone HCl 10 MG Oral Tablet (Buspar) TAKE ONE TABLET BY MOUTH IN THE MORNING AND ONE BEFORE BEDTIME 60 Tablet 5 4 03/09/20 24 Discontinued documented as of this encounter (statuses as of 03/09/2024) Active Problems Problem Noted Date Diagnosed Date Panic disorder 03/09/2024 Major depressive disorder, recurrent episode, mo derate 03/09/2024 History of hip surgery 02/09/2023 Non healing left heel wound 11/10/2022 S/P angioplasty with stent 06/23/2022 Coronary artery disease of n ative artery of [place] heart with stable angina pectoris 06/23/2022 Ischemic [...] as of this encounter (statuses as of 03/09/2024) Resolved Problems Problem Noted Date Diagnosed Date [...] as of this encounter (statuses as of 03/09/2024) Immunizations Name Administration Dates Next Due Hepatitis [...] No 01/07/2024 Does the household have a re gular source of income? (Household - for ages [...] this encounter Progress Notes * Mauri Macias, DO - 03/09/2024 1:47 PM EDT OUTPATIENT PSYCHIATRY RETURN VISIT DIVISION OF PSYCHIATRY [place] [address] Name: Shashi Moctezuma : 1975 Date and Time Patient was Seen: 03/09/2024 at 1:47 PM Patient location: HOME. I was not in a hospital or clinic location. After connecting through televideo, patient was verified with two unique identifiers. Patient (or authorized legal union contract representative) was then informed that this was a Telemedicine visit and being conducted confidentially over secure lines. Methods to assure confidentiality were taken. Patient acknowledged consent and understanding of privacy and security of the Telemedicine visit. The patient agreed to participate. After connecting through televideo, patient was verified with two unique identifiers. Patient (or authorized legal union contract representative) was then informed that this was [...] that I have reviewed their record in [facility] and presented the opportunity for them to ask any questions regarding the visit today. The patient agreed to participate. CC: Follow up visit INTERVAL HISTORY: Shashi Moctezuma Jr. is a 47 year old male with PPH of MED, Bipolar II D/O, and PMH of DM2, diabetic neuropathy, dyslipidemia, CAD, HTN, Retinal artery occlusion, ischemic cardiomyopathy, systolic CHF,OA of B/L knees and s/p angioplasty with stent, who presents to telepsych clinic for scheduled follow up. Pt has been diagnosed with swimmer's ear, currently on antibiotics. Recently was put on baclofen for the back pain, plans to f/u with his neurosurgeon regarind his pain and whether he needs back surgery or not. Mood continues to be stable, no changes. Except Anxiety has gotten worse over the past 2 months DM is a bit better under control. Has been using Ramelteon, it is helping with falling asleep, only uses as needed, does not always need it. Completed eval with Sleep medicine, and plan to do a home sleep study next. Waiting for the home kit. Switching from Xanax to Clonazepam has been helpful, much better for anxiety. Previous trials: Doxepin--vivid dreams/nightmares, not helpful for sleep Xanax-not adequately covering Psychiatricc ROS Sleep:a bit better lately. Appetite: Good, increased, weight remains stable Suicidal ideation: Denied Homicidal ideation: Denied Psychosis: [...] 1 Kit 3 FreeStyle Sadiq 14 Day [place] Device Use as directed . 1 Each 1 FreeStyle Sadiq 14 Day Sensor Use as directed . 1 Each 11 Nystatin 945783 UNIT/GM External Cream Apply 1 g topically to affected area in the morning and 1 g before bedtime. To affacted area for two weeks.. 30 g 5 Dulaglutide 1.5 MG/0.5ML Subcutaneous Solution Pen-injector (Finanzchef24) Inject 1.5 mg under the skin once [...] BY MOUTH EVERY MORNING 30 Tablet 11 BD Pen Needle Mini U/F 31G X 5 MM (Insulin Pen Needle) USE WITH INSULIN PEN (Patient not taking: Reported on 09/02/2023) 100 Each 3 DULoxetine HCl 60 MG Oral Capsule Delayed Release Particles (Cymbalta) Take 1 Capsule by mouth in the morning. Do not cut, crush or chew. 90 Capsule 3 Riboflavin 400 MG Oral Tablet TAKE 1 TABLET BY MOUTH EVERY MORNING 90 Tablet 3 busPIRone HCl 10 MG Oral Tablet (Buspar) [...] BY MOUTH EVERY MORNING 90 Tablet 1 Saccharomyces boulardii 250 MG Oral Capsule (Florastor) Take 1 Capsule by mouth in the morning and 1 Capsule before bedtime. (Patient not taking: Reported on 03/06/2024) Nicotine 14 MG/24HR Transdermal Patch 24 Hour [...] TABLET BY MOUTH TWICE DAILY NEEDED FOR [id number] Tablet 1 DULoxetine HCl 30 MG Oral Capsule Delayed Release Particles (Cymbalta) Take 1 Capsule by mouth in the morning. Take with the 60 mg capsule, for a total of 90 mg a day. 30 Capsule 3 Montelukast Sodium 10 MG Oral Tablet (Singulair) TAKE 1 TABLET BY MOUTH EVERY MORNING 90 Tablet 3 buPROPion HCl ER (XL) 450 MG Oral Tablet Extended Release 24 Hour (Forvifo XL) TAKE 1 TABLET BY MOUTH EVERY MORNING 30 Tablet 2 Ramelteon 8 MG Oral Tablet (Rozerem) Take 1 Tablet by mouth at bedtime. 90 Tablet 1 Magnesium Oxide -Mg Supplement 400 (240 Mg) MG Oral Tablet (Mag-Ox) TAKE 1 TABLET BY MOUTH EVERY MORNING 90 Tablet 1 Fludrocortisone Acetate 0.1 MG Oral Tablet (Florinef) TAKE 1 TABLET BY MOUTH ONCE DAILY 30 Tablet 0 Baclofen 20 MG Oral Tablet Take 1 Tablet by mouth in the morning and 1 Tablet before bedtime. 60 Tablet 3 Pantoprazole Sodium 40 MG Oral Tablet Delayed Release (Protonix) TAKE 1 TABLET BY MOUTH EVERY 30 MINUTES BEFORE THE FIRST MEAL OF THE DAY. DO NOT CRUSH, CHEW OR SPLIT TABLET 90 Tablet 2 No current facility-administered medications for this visit. RECENT LABS/IMAGING: Recent Results (from the past 672 hour(s)) HEMOGLOBIN A1C Collection Time: 03/06/24 1:29 PM Result Value Ref Range Hemoglobin A1C 7.3 (H) 4.0 - 5.6 % Estimated Average Glucose 163 (H) <126 mg/dL PSA Collection Time: 03/06/24 1:29 PM Result Value Ref Range PSA 7.74 (H) <2.00 ng/mL COMPREHENSIVE METABOLIC PANEL Collection Time: 03/06/24 1:29 PM Result Value Ref Range BUN 14 6 - 20 mg/dL CREATININE 1.4 (H) 0.6 - 1.2 mg/dL EGFR 61 >=60 mL/min SODIUM 139 135 - 146 mmol/L POTASSIUM 4.4 3.5 - 5.1 mmol/L CHLORIDE 102 98 - 107 mmol/L CO2 25 22 - 32 mmol/L ANION GAP 12 7 - 15 mmol/L GLUCOSE 119 70 - 120 mg/dL Albumin 4.1 3.8 - 5.0 g/dL AST 14 10 - 50 U/L Alkaline Phosphatase 80 35 - 130 U/L Bilirubin, Total 0.8 <=1.2 mg/dL CALCIUM 9.4 8.4 - 10.2 mg/dL Protein 6.5 6.0 - 8.3 g/dL ALT 14 10 - 50 U/L CBC Collection Time: 03/06/24 1:29 PM Result Value Ref Range WBC 13.81 (H) 4.00 - 10.80 K/uL RBC 4.85 4.50 - 5.25 M/uL HGB 12.9 (L) 14.0 - 16.8 g/dL HCT 41.5 40.0 - 48.4 % MCV 85.6 82.0 - 99.5 fL MCH 26.6 27.0 - 34.0 pg MCHC 31.1 32.0 - 36.0 g/dL RDW 13.6 11.5 - 15.5 % PLT 363 140 - 400 K/uL MPV 11.4 6.6 - 11.1 fL nRBCs 0 <=0 /100 WBCs DIFFERENTIAL, AUTOMATED Collection Time: 03/06/24 1:29 PM Result Value Ref Range WBC 13.81 (H) 4.00 - 10.80 K/uL Neutrophils % 67.2 40.0 - 75.0 % Lymphocytes % 14.7 (L) 18.0 - 42.0 % Monocytes % 14.3 (H) 1.0 - 11.0 % Eosinophils % 2.1 0.0 - 6.0 % Basophils % 1.3 0.0 - 2.0 % Immature Granulocytes % 0.4 0.0 - 2.0 % Absolute Neutrophils 9.28 (H) 1.80 - 7.70 K/uL Absolute Lymphocytes 2.03 1.00 - 4.80 K/ul Absolute Monocytes 1.97 (H) 0.00 - 1.10 K/uL Absolute Eosinophils 0.29 0.00 - 0.70 K/uL Absolute Basophils 0.18 0.00 - 0.20 K/uL Absolute Immature Granulocytes 0.06 0.00 - 0.20 K/uL CULTURE, URINE, QUANTITATIVE Collection Time: 03/07/24 1:36 PM Specimen: Urine, Clean Catch Result Value Ref Range Culture Growth (A) >100,000 colonies/mL Lactose fermenting gram negative bacilli URINALYSIS, REFLEX TO MICROSCOPIC Collection Time: 03/07/24 1:36 PM Result Value Ref Range Color, Urine Light Yellow Colorless, Light Yellow, Yellow, Dark Yellow Clarity, Urine Clear Clear Glucose, Urine >=1000 (A) Negative mg/dL Bilirubin, Urine Negative Negative Ketone, Urine Negative Negative mg/dL Specific [place], Urine 1.018 1.003 - 1.030 Blood, Urine Negative Negative pH, Urine 6.0 5.0 - 7.5 Units Protein, Urine Trace (A) Negative mg/dL Urobilinogen, Urine Normal Normal mg/dL Nitrite, Urine Negative Negative Esterase, Urine Moderate (A) Negative RBC, Urine 0-2 0 - 2 /HPF WBC, Urine 50+ (A) 0 - 2 /HPF Bacteria, Urine >200 (A) 0 - 25 /HPF VITALS There were no vitals filed for this visit. Wt Readings from Last 3 Encounters: 03/06/24 88.9 kg (196 lb) 12/07/23 88.9 kg (196 lb) 12/02/23 87.1 kg (192 lb) There is no height or weight on file to calculate BMI. CURRENT MEDICATIONS: Current Outpatient Medications Medication Sig Dispense Refill GLUCOMETER ELITE CLASSIC KIT check blood sugar every morning when you get up 1 Kit 3 FreeStyle Sadiq 14 Day [place] Device Use as directed . 1 Each 1 FreeStyle Sadiq 14 Day Sensor Use as directed . 1 Each 11 Nystatin 511111 UNIT/GM External Cream Apply 1 g topically to affected area in the morning and 1 g before bedtime. To affacted area for two weeks.. 30 g 5 Dulaglutide 1.5 MG/0.5ML Subcutaneous Solution Pen-injector (Finanzchef24) Inject 1.5 mg under the skin once [...] BY MOUTH EVERY MORNING 30 Tablet 11 BD Pen Needle Mini U/F 31G X 5 MM (Insulin Pen Needle) USE WITH INSULIN PEN (Patient not taking: Reported on 09/02/2023) 100 Each 3 DULoxetine HCl 60 MG Oral Capsule Delayed Release Particles (Cymbalta) Take 1 Capsule by mouth in the morning. Do not cut, crush or chew. 90 Capsule 3 Riboflavin 400 MG Oral Tablet TAKE 1 TABLET BY MOUTH EVERY MORNING 90 Tablet 3 busPIRone HCl 10 MG Oral Tablet (Buspar) [...] BY MOUTH EVERY MORNING 90 Tablet 1 Saccharomyces boulardii 250 MG Oral Capsule (Florastor) Take 1 Capsule by mouth in the morning and 1 Capsule before bedtime. (Patient not taking: Reported on 03/06/2024) Nicotine 14 MG/24HR Transdermal Patch 24 Hour [...] TABLET BY MOUTH TWICE DAILY NEEDED FOR [id number] Tablet 1 DULoxetine HCl 30 MG Oral Capsule Delayed Release Particles (Cymbalta) Take 1 Capsule by mouth in the morning. Take with the 60 mg capsule, for a total of 90 mg a day. 30 Capsule 3 Montelukast Sodium 10 MG Oral Tablet (Singulair) TAKE 1 TABLET BY MOUTH EVERY MORNING 90 Tablet 3 buPROPion HCl ER (XL) 450 MG Oral Tablet Extended Release 24 Hour (Forvifo XL) TAKE 1 TABLET BY MOUTH EVERY MORNING 30 Tablet 2 Ramelteon 8 MG Oral Tablet (Rozerem) Take 1 Tablet by mouth at bedtime. 90 Tablet 1 Magnesium Oxide -Mg Supplement 400 (240 Mg) MG Oral Tablet (Mag-Ox) TAKE 1 TABLET BY MOUTH EVERY MORNING 90 Tablet 1 Fludrocortisone Acetate 0.1 MG Oral Tablet (Florinef) TAKE 1 TABLET BY MOUTH ONCE DAILY 30 Tablet 0 Baclofen 20 MG Oral Tablet Take 1 Tablet by mouth in the morning and 1 Tablet before bedtime. 60 Tablet 3 Pantoprazole Sodium 40 MG Oral Tablet Delayed Release (Protonix) TAKE 1 TABLET BY MOUTH EVERY 30 MINUTES BEFORE THE FIRST MEAL OF THE DAY. DO NOT CRUSH, CHEW OR SPLIT TABLET 90 Tablet 2 No current facility-administered medications for this visit. FAMILY HISTORY: Family History Problem Relation Name Age of Onset Hypertension Father Hypertension Mother Cancer Father Prostate Diabetes Grandmother (Maternal) PAST MEDICAL HISTORY: Past Medical History: Diagnosis Date Bipolar 1 disorder, depressed ([facility]) new psychiatrist this week at [facility] in [place] DM type 2, not at goal ([facility]) / Dyslipidemia, goal LDL below 100 HTN, [...] normal volume and normal tone Mood: "still stable, considering all the medical issues" Affect: Euthymic, congruent with mood, normal range, [...] top of all the appointments and recommendations. Continues to maintain stable mood. MED Panic disorder Insomnia Bipolar type 2 by history -Continue Wellbutrin XL 450 mg daily to further target depression -Continue Cymbalta 90 mg daily for depression, anxiety and neuropathy, switched to HS, in case it is making him tired in the day -Increase Buspirone to 15 mg BID to further address anxiety -Continue Ramelteon 8mg HS for insomnia, PRN, [...] seizure, tolerance/addiction, fall risk, and cognitive decline. skilled nursing goal is to keep alow maintenance dose as needed vs complete discontinuation. Plan is to taper off as of next month. -had an eval with the sleep medicine clinic. Sleep study pending on 05/03/2024 -educated on sleep hygiene -educated on importance of compliance with DM meds -will f/u with urology and neurology, as well as neurosurgeon for his back pain Laboratory tests: None Therapy: not currently in therapy RTC: in 6 weeks Treatment options and alternatives reviewed with [...] crisis teams andEMS. Time Spent on Visit: 10 minutes Time spent on counseling over and above medication management: 17 minutes Billing code: [id number] Treatment plan renewed on 06/29/2023 Mauri Macias DO Psychiatrist, [facility] 03/09/2024 documented in this encounter Plan of Treatment Upcoming Encounters Date Type Department Care Team (Late st Contact Info) Description 04/04/2024 1:30 PM EDT Office Visit Orthopaedics Spine Surgery, [facility] [address] [address] Enoch Garrison MD [address] [place] [address] 04/13/2024 2:15 PM EST Office Visit Interventional Pain Center, [facility] [address] [place] [address] Lee Torres DO [address] [phone] 05/03/2024 1:00 PM EST PulmDiagnostic Sleep Lab [facility] [address] [place] [address] [facility], Sleep Med Home Study Anurag [address] [place] [address] 05/05/2024 9:30 AM EST Telemedicine Psychiatry Yonathan Wallace, [place] [address] [place] [address] Mauri Macias, DO [address] [place] [address] 06/05/2024 1:00 PM EST Office Visit Located Within [facility] [address] [place] [address] Ruben Gordillo MD [address] [place] [address] 06/13/2024 3:40 PM EST Office Visit [facility] [address] [place] [address] Ernie Asif, DO [address] [place] [address] Health Maintenance Due Date Last Done Comments Pneumococcal Vaccine: Pediatrics (0 to 5 Years) and At-Risk Patients (6 to 64 Years) (2 of 2 - PCV) 02/22/2013 02/23/2012 Cologuard 2021 Colonoscopy 2021 Colorectal Cancer Screening 2021 Fecal Occult Blood Test 2021 Sigmoidoscopy 2021 COVID-19 Vaccine ( season) 2024 Influenza Vaccine (FLU shot) (#1) 2024 02/25/2015, 05/02/2013, 02/23/2012 HbA1c 09/03/2024 03/06/2024, 11/05, 06/18/2023, Additional history exists Albumin/Creatinine Ratio 12/06/2024 07 024, 01/11/2023, 11/30/2014, Additional history exists GFR [...] disorder Panic disorder Panic disorder without agoraphobia Major depressive disorder, recurrent episode, moderate (HCC) Major depressive disorder, recurrent episode, moderate Insomnia due to other mental disorder documented in this encounter Care Teams Java Systems Analyst Relationship Specialty Start Date End Date Ruben Gordillo MD [address] [place] [address] PCP - General Internal Medicine 02/05/22 documented as of this encounter
--- OUTSIDE RECORDS SUMMARY | 2024-03-14 05:01 | External Medical Summary | Summary of Care ---
Author Name Unknown Organization [facility] Address [address] [place] [address] Phone [phone] Care Team Providers Care Assembler And Tester Electronics Name Role Phone Ruben Gordillo MD Primary Care Provider [phone] Reason for Visit * Reason Comments eRx-Medication Refill Encounter Details Date Type Department Care Team (Late st Contact Info) Description 03/07/2024 Refill Merged With [facility] [address] [place] [address] Ruben Gordillo MD [address] [place] [address] Allergies Active Allergy Reactions Criticality Noted Date Comments Adhesive Tape 02/09/2023 Latex Rash 02/05/2022 Tramadol Nausea/vomiting 12/02/2014 documented as of this encounter (statuses as of 03/08/2024) Medications Medication Sig Dispensed Refills Start Date End Date Status GLUCOMETER ELITE CLASSIC KITIndications:DM type 2, not at goal (HCC) check blood sugar every morning when you get up 1 Kit 3 2 Active FreeStyle Sadiq 14 Day [place] Device Use as directed . 1 Each 1 2 Active FreeStyle Sadiq 14 Day Sensor Use as directed . 1 Each 11 2 Active Nystatin 859794 UNIT/GM External Cream Apply 1 g topically [...] mg Oral BID (0800,1999), Reported on 06/29/2023 Clopidogrel Bisulfate 75 MG [...] EVERY MORNING 90 Tablet 3 4 Active busPIRone HCl 10 MG Oral [...] SPLIT TABLET 90 Tablet 2 4 Active Pantoprazole Sodium 40 MG Oral Tablet Delayed Release (Protonix) TAKE 1 TABLET BY MOUTH EVERY 30 MINUTES BEFORE THE FIRST MEAL OF THE DAY. DO NOT CRUSH, CHEW OR SPLIT TABLET 30 Tablet 5 4 03/08/20 24 Discontinued documented as of this encounter (statuses as of 03/08/2024) Active Problems Problem Noted Date Diagnosed Date History of hip surgery 02/09/2023 Non healing left heel wound 11/10/2022 S/P angioplasty with stent 06/23/2022 Coronary artery disease of n ative artery of [place] heart with stable angina pectoris 06/23/2022 Ischemic [...] as of this encounter (statuses as of 03/08/2024) Resolved Problems Problem Noted Date Diagnosed Date [...] as of this encounter (statuses as of 03/08/2024) Immunizations Name Administration Dates Next Due Hepatitis [...] encounter Miscellaneous Notes * Telephone Encounter - Martín Rodriguez [facility] - 03/08/2024 11:29 AM EDT Signed Prescriptions: Disp Refills Pantoprazole Sodium 40 MG Oral Tablet Cris*90 Tab*2 Sig: TAKE 1 TABLET BY MOUTH EVERY 30 MINUTES BEFORE THE FIRST MEAL OF THE DAY. DO NOT CRUSH, CHEW OR SPLIT TABLETAuthorizing Provider: Elsa GORDILLO User: MARTÍN RODRIGUEZ documented in this encounter Plan of Treatment Upcoming Encounters Date Type Department Care Team (Late st Contact Info) Description 03/09/2024 1:30 PM EDT Telemedicine Psychiatry Clarice Young [address] [phone] Mauri Macias DO [address] [address] 04/04/2024 1:30 PM EDT Office Visit Orthopaedics Spine Surgery, [facility] [address] [address] Enoch Garrison MD [address] [phone] 04/13/2024 2:15 PM EST Office Visit Interventional Pain Center, [facility] [address] [place] [address] Lee Torres, DO [address] [place] [phone] 05/03/2024 1:00 PM EST PulmDiagnostic Sleep Lab [address] [place] [address] [facility], Sleep Med Home Study [place] [address] [facility] [place] [phone] 06/05/2024 1:00 PM EST Office Visit Merged With [facility] [address] [place] [phone] Ruben Gordillo MD [address] [place] [address] 06/13/2024 3:40 PM EST Office Visit Neurology [facility] [address] [facility] [place] [address] Ernie Asif, DO [address] [facility] [place] [address] Health Maintenance Due Date Last Done Comments [...] filedocumented as of this encounter Care Teams Assembler And Tester Electronics Relationship Specialty Start Date End Date Ruben Gordillo MD [address] [place] [address] PCP - General Internal Medicine 02/05/22 documented as of this encounter
--- OUTSIDE RECORDS SUMMARY | 2024-03-14 05:01 | External Medical Summary | Summary of Care ---
Author Name Unknown Organization [facility] Address [address] [place] [address] Phone [phone] Care Team Providers Care Twister Hand Name Role Phone Ruben Gordillo MD Primary Care Provider [phone] Reason for Visit * Reason Comments Outpatient Testing Encounter Details Date Type Department Care Team (Late st Contact Info) Description 03/07/2024 1:40 PM EDT Laboratory Laboratory, [address] [address] [address], Specimen Drop Off [address] [address] Hematuria, unspecified type Allergies Active Allergy Reactions Criticality Noted Date Comments Adhesive Tape 02/09/2023 Latex Rash 02/05/2022 Tramadol Nausea/vomiting 12/02/2014 documented as of this encounter (statuses as of 03/07/2024) Medications Medication Sig Dispensed Refills Start Date End Date Status GLUCOMETER ELITE CLASSIC KITIndications:DM type 2, not at goal (HCC) check blood sugar every morning when you get up 1 Kit 3 07/31/2011 Active FreeStyle Sadiq 14 Day [place] Device Use as directed . 1 Each 02/13/2022 Active FreeStyle Sadiq 14 Day Sensor Use as directed . 1 Each 11 02/13/2022 Active Nystatin 140518 UNIT/GM External Cream Apply 1 g topically [...] 06/29/2023 Clopidogrel Bisulfate 75 MG Oral Tablet (pLAVix)Indications: Ischemic cardiomyopathy Take 1 Tablet by mouth every afternoon. 90 Tablet 07/21/2023 Active Atorvastatin Calcium 40 MG Oral Tablet (Lipitor)Indications :Dyslipidemia, goal LDL below 100 Take 1 Tablet by mouth in the morning. 90 Tablet 07/21/2023 Active Jardiance 10 MG Oral Tablet (Empagliflozin)Indic ations:Type 2 diabetes mellitus with hemoglobin A1c goal of less than 7.0% (HCC) TAKE 1 TABLET BY MOUTH EVERY MORNING 30 Tablet 07/22/2023 Active BD Pen Needle Mini U/F 31G X 5 MM (Insulin Pen Needle)Indications:D M type 2, not at goal (HCC) USE WITH INSULIN PEN 100 Each 3 08/31/2023 Active Additional Information Patient not taking.Reported on 09/02/2023 DULoxetine HCl 60 MG Oral Capsule Delayed Release Particles (Cymbalta) Take 1 Capsule by mouth in the morning. Do not cut, crush or chew. 90 Capsule 09/08/2023 Active Riboflavin 400 MG Oral Tablet TAKE 1 TABLET BY MOUTH EVERY MORNING 90 Tablet 09/14/2023 Active Pantoprazole Sodium 40 MG Oral Tablet Delayed Release (Protonix) TAKE 1 TABLET BY MOUTH EVERY 30 MINUTES BEFORE THE FIRST MEAL OF THE DAY. DO NOT CRUSH, CHEW OR SPLIT TABLET 30 Tablet 09/21/2023 Active busPIRone HCl 10 MG Oral Tablet (Buspar) TAKE ONE TABLET BY MOUTH IN THE MORNING AND ONE BEFORE BEDTIME 60 Tablet 10/11/2023 Active Gabapentin 300 MG Oral Capsule (Neurontin) TAKE 1 CAPSULE BY MOUTH THREE TIMES DAILY EVERY MORNING, AT NOON, AND BEFORE BEDTIME 270 Capsule 10/14/2023 Active Aspirin Low Dose 81 MG Oral Tablet Delayed Release (aspirin enteric coated)Indications:D M type 2, not at goal (HCC),HTN, goal below 130/80 TAKE 1 TABLET BY MOUTH EVERY MORNING 90 Tablet 1 10/19/2023 Active Saccharomyces boulardii 250 MG Oral Capsule (Florastor) Take 1 Capsule by mouth in the morning and 1 Capsule before bedtime. 11/15/2023 Active Nicotine 14 MG/24HR Transdermal Patch 24 Hour (Nicoderm CQ) Place 1 Patch over 24 hours topically on the skin in the morning. On upper body/outer arm, change once a day for two weeks.. 28 Patch 5 12/02/2023 Active Midodrine HCl 5 MG Oral Tablet (Proamatine) Take 1 Tablet by mouth at noon and 1 Tablet in the evening. 180 Tablet 3 12/02/2023 Active Benazepril HCl 10 MG Oral Tablet (Lotensin)Indication s:Diabetic nephropathy associated with type 2 diabetes mellitus (HCC) Take 1 Tablet by mouth in the morning. 30 Tablet 5 12/07/2023 Active clonazePAM 0.5 MG Oral Tablet (KlonoPIN) TAKE ONE TABLET BY MOUTH TWICE DAILY NEEDED FOR ANXIETY 60 Tablet 1 12/21/2023 Active DULoxetine HCl 30 MG Oral Capsule Delayed Release Particles (Cymbalta) Take 1 Capsule by mouth in the morning. Take with the 60 mg capsule, for a total of 90 mg a day. 30 Capsule 3 01/10/2024 Active Montelukast Sodium 10 MG Oral Tablet (Singulair) TAKE 1 TABLET BY MOUTH EVERY MORNING 90 Tablet 3 01/26/2024 Active buPROPion HCl ER (XL) 450 MG Oral Tablet Extended Release 24 Hour (Forvifo XL) TAKE 1 TABLET BY MOUTH EVERY MORNING 30 Tablet 2 02/08/2024 Active Ramelteon 8 MG Oral Tablet (Rozerem) Take 1 Tablet by mouth at bedtime. 90 Tablet 1 02/17/2024 Active Magnesium Oxide -Mg Supplement 400 (240 Mg) MG Oral Tablet (Mag-Ox) TAKE 1 TABLET BY MOUTH EVERY MORNING 90 Tablet 1 02/28/2024 Active Fludrocortisone Acetate 0.1 MG Oral Tablet (Florinef) TAKE 1 TABLET BY MOUTH ONCE DAILY 30 Tablet 03/06/2024 Active Baclofen 20 MG Oral Tablet Take 1 Tablet by mouth in the morning and 1 Tablet before bedtime. 60 Tablet 3 03/06/2024 Active documented as of this encounter (statuses as of 03/07/2024) Active Problems Problem Noted Date Diagnosed Date History of hip surgery 02/09/2023 Non healing left heel wound 11/10/2022 S/P angioplasty with stent 06/23/2022 Coronary artery disease of n ative artery of [place] heart with stable angina pectoris 06/23/2022 Ischemic [...] as of this encounter (statuses as of 03/07/2024) Resolved Problems Problem Noted Date Diagnosed Date [...] as of this encounter (statuses as of 03/07/2024) Immunizations Name Administration Dates Next Due Hepatitis [...] on file documented as of this encounter Plan of Treatment Upcoming Encounters Date Type Department Care Team (Late st Contact Info) Description 03/09/2024 1:30 PM EDT Telemedicine Psychiatry Clarice Young [address] [phone] Mauri Macias DO [address] [address] 04/04/2024 1:30 PM EDT Office Visit Orthopaedics Spine Surgery, [facility] [address] [place] [address] Enoch Garrison MD [address] [place] [address] 04/13/2024 2:15 PM EST Office Visit [facility], [facility] [address] [place] [address] Lee Torres DO [address] [place] [phone] 05/03/2024 1:00 PM EST PulmDiagnostic Sleep Lab [facility] [place] [address] [facility], Sleep Med Home Study [facility] [address] [facility] [place] [address] 06/05/2024 1:00 PM EST Office Visit [facility] [address] [place] [phone] Ruben Gordillo MD [address] [place] [address] 06/13/2024 3:40 PM EST Office Visit Neurology [facility] Abdirahman Villanueva [address] [facility] [place] [address] Ernie Asif, [address] [facility] [place] [address] Pending Results Name Type Priority Associated Diagnoses Date /Time CULTURE, URINE, QUANTITATIVE Lab Routine Hematuria, unspecified type 03/07/2024 1:36 PM EDT URINALYSIS, REFLEX TO MICROSCOPIC Lab Routine Hematuria, unspecified type 03/07/2024 1:36 PM EDT Health Maintenance Due Date Last Done Comments [...] as of this encounter Visit Diagnoses Diagnosis Hematuria, unspecified type documented in this encounter Care Teams Twister Hand Relationship Specialty Start Date End Date Ruben Gordillo MD [address] [place] [address] PCP - General Internal Medicine 02/05/22 documented as of this encounter
--- OUTSIDE RECORDS SUMMARY | 2024-03-14 05:01 | External Medical Summary | Summary of Care ---
Author Name Unknown Organization [facility] Address [address] [place] [address] Phone [phone] Care Team Providers Care Sports Nutritionist Name Role Phone Ruben Gordillo MD Primary Care Provider [phone] Reason for Visit * Reason Onset Date Comments Pre Cert/Prior Auth 03/10/2024 Trulicity Encounter Details Date Type Department Care Team (Late st Contact Info) Description 03/10/2024 Telephone [facility] [address] [place] [address] Ruben Gordillo MD [address], [place] [id number] Pre Cert/Prior Auth (Trulicity ) Allergies Active Allergy Reactions Criticality Noted Date [...] 3 07/31/2011 Active FreeStyle Sadiq 14 Day [place] Device Use as directed . 1 Each 02/13/2022 Active FreeStyle Sadiq 14 Day Sensor Use as directed . 1 Each 11 02/13/2022 Active Nystatin 268284 UNIT/GM External Cream Apply 1 g topically [...] mg Oral BID (08,1999), Reported on 06/29/2023 Clopidogrel Bisulfate 75 MG [...] EVERY MORNING 30 Tablet 11 07/22/2023 Active BD Pen Needle Mini U/F [...] or chew. 90 Capsule 3 09/08/2023 Active Riboflavin 400 MG Oral Tablet TAKE 1 TABLET BY MOUTH EVERY MORNING 90 Tablet 3 09/14/2023 Active Gabapentin 300 MG Oral Capsule (Neurontin) [...] before bedtime. 60 Tablet 3 03/06/2024 Active Pantoprazole Sodium 40 MG Oral Tablet Delayed Release (Protonix) TAKE 1 TABLET BY MOUTH EVERY 30 MINUTES BEFORE THE FIRST MEAL OF THE DAY. DO NOT CRUSH, CHEW OR SPLIT TABLET 90 Tablet 2 03/08/2024 Active busPIRone HCl 15 MG Oral Tablet (Buspar) Take 1 Tablet by mouth in the morning and 1 Tablet before bedtime. 60 Tablet 2 03/09/2024 Active documented as of this encounter (statuses as of 03/10/2024) Active Problems Problem Noted Date Diagnosed Date Panic disorder 03/09/2024 Major depressive disorder, recurrent episode, mo derate 03/09/2024 History of hip surgery 02/09/2023 Non healing left heel wound 11/10/2022 S/P angioplasty with stent 06/23/2022 Coronary artery disease of n ative artery of [place] heart with stable angina pectoris 06/23/2022 Ischemic [...] encounter Miscellaneous Notes * Telephone Encounter - Sandra Haddad LPN - 03/10/2024 10:17 AM EDT Prior auth started with CMM[employer] for Trulicity Fontanez # [id number] documented in this encounter Plan of Treatment Upcoming Encounters Date Type Department Care Team (Late st Contact Info) Description 04/04/2024 1:30 PM EDT Office Visit Orthopaedics Spine Surgery, [facility] [address] [place] [address] Enoch Garrison MD [address] [place] [address] 04/13/2024 2:15 PM EST Office Visit Interventional Pain Center, [facility] [address] [place] [address] Lee Torres DO [address] [place] [phone] 05/03/2024 1:00 PM EST PulmDiagnostic Sleep Lab [facility] [address] [place] [address] [facility] Sleep Med Home Study [facility] [address] [facility] [place] [address] 05/05/2024 9:30 AM EST Telemedicine Psychiatry Clarice Young [address] [phone] [facility] [phone] 06/05/2024 1:00 PM EST Office Visit [facility] [place] [address] [place] [phone] Ruben Gordillo MD [address] [place] [address] 06/13/2024 3:40 PM EST Office Visit Neurology [facility] [address] [facility] [place] [address] Ernie Asif, [address] [facility] [place] [address] Health Maintenance Due Date Last Done Comments [...] 06/18/2023, Additional history exists Albumin/Creatinine Ratio 12/06/2024 07/2 024, 01/11/2023, 11/30/2014, Additional history exists GFR [...] filedocumented as of this encounter Care Teams Sports Nutritionist Relationship Specialty Start Date End Date Ruben Gordillo MD [address] [place] [address] PCP - General Internal Medicine 02/05/22 documented as of this encounter
[2024-03-14] MEDS: HEPARIN SOD 5,000 UNIT/0.5 ML VIAL SQ SCH (05:04)
--- NOTE | 2024-03-14 06:53 | XRay Report ---
XR chest 1V portable HISTORY: 48 years-old Male fall from standing acute chest trauma status post fall COMPARISON: Chest CT of same day TECHNIQUE: AP view of the chest FINDINGS: Cardiac silhouette is enlarged. No pneumothorax, pleural effusion or airspace consolidation. The bone s of the chest appear grossly intact. IMPRESSION: No acute process. ACT 112: Negative or not required by law. The above report was generated using voice recognition software. It may contain grammatical, syntax o r spelling errors. Electronically signed by: Franklin Polanco M.D. 03/14/2024 6:52 AM
[2024-03-14 06:59] LABS: Basophils # (auto) 0.13 K/uL (0.00-0.20); Basophils % (auto) 0.7 %; Eosinophils # (auto) 0.18 K/uL (0.00-0.50); Eosinophils % (auto) 0.9 %; Hematocrit (blood only) 38.7 % (42.0-52.0); Hemoglobin 12.3 g/dl (14.0-18.0); Immature Granulocytes # (auto) 0.15 K/uL (0.01-0.20); Immature Granulocytes % (auto) 0.8 %; Lymphocytes % (auto) 17.1 %; Mean Corpuscular Hemoglobin 26.1 pg (25.0-34.0); Mean Corpuscular Hgb Conc 31.8 g/dL (32.0-36.0); Mean Platelet Volume 10.5 fL (9.4-12.4); Monocytes % (auto) 13.1 %; Neutrophils # (auto) 13.42 K/uL (1.40-6.50); Neutrophils % (auto) 67.4 %; Nucleated RBC # (auto) 0.03 K/uL (0.00-0.12); Nucleated RBC % (auto) 0.2 %; Platelet Count 473 K/uL (130-400); RDW Coefficient of Variation 14.4 % (11.5-14.5); RDW Standard Deviation 42.4 fL (36.4-46.3); Red Blood Count 4.72 M/uL (4.70-6.10); White Blood Count 19.88 K/ul (4.8-10.8)
[2024-03-14 07:15] LABS: BUN Creatinine Ratio 30.2 (10-20); Calcium 8.4 mg/dl (8.6-10.3); Potassium 3.6 mmol/L (3.5-5.1)
[2024-03-14 07:24] LABS: Troponin I High Sensitivity 125.1 pg/ml (0-20)
[2024-03-14] MEDS: ACETAMINOPHEN 325 MG TAB PO PRN (07:45)
[2024-03-14] MEDS: METOPROLOL SUCC 50MG EXT REL TAB PO STA (07:45)
[2024-03-14] MEDS: NICOTINE 14 MG/24 HR PATCH TD SCH (08:24)
[2024-03-14] MEDS: ASPIRIN 81 MG ECTAB PO SCH (08:24)
[2024-03-14] MEDS: ADVANCED PROBIOTIC 625 MG CAPSULE PO SCH (08:24)
[2024-03-14] MEDS: DOCUSATE SODIUM/SENNA 50/8.6MG TAB PO SCH (08:24)
[2024-03-14] MEDS: POLYETHYLENE (MIRALAX) 17 GM PACK PO SCH (08:24)
[2024-03-14] MEDS: ATORVASTATIN 40 MG TAB PO SCH (08:24)
[2024-03-14] MEDS: OXYBUTYNIN CHLORIDE XL 5 MG TABCR PO SCH (08:25)
[2024-03-14] MEDS: THIAMINE HCL 100 MG TAB PO SCH (08:25)
[2024-03-14] MEDS: PANTOprazole 40 MG TAB PO SCH (08:25)
[2024-03-14] MEDS: MONTELUKAST SODIUM 10 MG TABLET PO SCH (08:25)
--- NOTE | 2024-03-14 08:45 | Electrocardiogram Report ---
Test Reason : Blood Pressure : */* mmHG Vent. Rate : 129 BPM Atrial Rate : 129 BPM P-R Int : 128 ms QRS Dur : 82 ms QT Int : 316 ms P-R-T Axes : 37 44 54 degrees QTcB Int : 462 ms Sinus tachycardia Septal infarct , age undetermined Nonspecific ST and T wave abnormality Abnormal ECG When compared with ECG of 06-Nov-2023 18:56, Septal infarct is now Present ST now depressed in Lateral leads Nonspecific T wave abnormality now evident in Lateral leads Confirmed by Lazaro Arthur ([id number]) on 03/14/2024 8:45:09 AM Referred By: REFERRED SELF Confirmed By: Lazaro Arthur
[2024-03-14] MEDS ORDERED: METOPROLOL SUCC 25MG EXT REL TAB PO SCH (09:00)
[2024-03-14] MEDS ORDERED: MIDODRINE HCL 2.5 MG TAB PO SCH (09:00)
[2024-03-14] MEDS ORDERED: buPROPion XL 150 MG TABCR PO SCH (09:00)
[2024-03-14] MEDS ORDERED: LANTUS PER UNIT CHARGE SQ SCH (09:00)
[2024-03-14] MEDS: CLOPIDOGREL BISULFATE 75 MG TAB PO SCH (09:31)
[2024-03-14] MEDS: ACETAMINOPHEN 1,000 MG/100 ML VIAL IV STA (11:17)
--- NOTE | 2024-03-14 12:02 | Hospitalist Progress Note ---
Date of Service March 14, 2024 Assessment & Plan (1) Encephalopathy: Plan Pt is a 48yoM with PMHx significant for chronic diastolic heart failure (EF 65- 70%, TTE 2022), CAD status post stent, hypertension, hyperlipidemia, orthostatic hypotension on midodrine, CKD (baseline creatinine 1.4), DMII on oral medications, migraine, chronic anemia (baseline hemoglobin of 10-11), chronic urinary retention, anxiety/mood disorder, past tobacco abuse presenting with severe sepsis once more in the setting of a urinary tract infection. Severe Sepsis Complicated urinary tract Infection Bilateral hydroureteronephrosis Patient presenting acutely altered, with chronic leukocytosis, tachycardia and fevers noted Blood pressure has been stable and within normal limits UA suggestive of infection with noted yeast Urine culture currently growing gram-negative bacilli Blood cultures 2 sets with no growth to date CT abdomen pelvis noting bilateral hydroureteronephrosis, possible ureteritis as well as possible cystitis Lactate elevated and down trended after fluid resuscitation Urology consulted, appreciate recs Continue with IV Zosyn Started on empiric IV fluconazole for noted yeast on urinalysis Continue to monitor Acute Metabolic/toxic Encephalopathy Patient presenting acutely altered Likely in setting of severe sepsis noted above with UTI Patient also hypernatremic Also multiple psychotropic medications, Holding neuropsychotropic medications until patient mentation back to baseline Tox screen negative Head CT unremarkable Consider brain MRI if persistent or no improvement Continue to monitor, anticipate improvement with improvement with infection Hypernatremia Sodium 150 on admission Has since down trended to 148 after receiving a liter of half-normal saline D5W ordered to run @ 60, pt NPO with altered mental status Avoid overcorrection Glycemic consult Nephrology consulted, appreciate further recs Closely monitor sodium with q4h BMPs Elevated troponin Demand ischemia versus NSTEMI Troponin elevated at 108.8 to 122.8 to 125.1 EKG noting sinus tach Likely elevated in setting of above and acute infection Echo ordered and pending continue to trend trop to peak Continue to monitor on telemetry Uncontrolled hypertension On admission fludrocortisone and midodrine for orthostatic hypotension contributory and were held On home betablocker Toprol 25mg BID, consider holding for low BP (has parameters) BP has been on lower end in setting of severe sepsis Will resume midodrine, holding florinef at this time Continue to monitor Chronic anemia Hgb stable at this time Continue to monitor SAMANTHA on CKD creatinine acutely elevated at 2.3 on admission Baseline of 1.4 Has been downtrending Continue to monitor Hypocalcemia POC ionized calcium of 1.09 replete as needed chronic diastolic heart failure hx CAD status post stent hyperlipidemia on statin Rx DMII on oral medications reasonable control as of recent hemoglobin A1c of 7.08 December 2023 Basal/bolus per protocol Glycemic consult while on d5w Functional disability patient mother feels she cannot care for patient at home given his multiple comorbidities PT/OT, consider placement Diet: clears as tolerated while altered DVT prophylaxis with heparin subcu Dispo: PT/OT for further recs once medically stable Admission and Anticipated Discharge Date Admission Date: March 13, 2024 Subjective patient was seen multiple times during the day In the a.m. repeating the same word "name" Lethargic Review of Systems Review of Systems: All systems reviewed & are unremarkable except as noted in Subjective Physical Exam Physical Exam: General: lethargic Psych:mood and affect could not be determined Neuro: lethargic HEENT: NC/AT CV: RRR Resp: no increased effort of breathing Abdomen: Soft, nontender Extremities: no edema in lower extremities bilaterally. Results & Data Results & Data Vital Signs (Past 12 Hours) Vital Signs Temp Pulse Pulse Resp BP BP BP 03/14/24 11:41 37.1 C 98 H 18 116/78 03/14/24 10:51 39.2 C H 105 H 16 100/69 03/14/24 10:12 36.8 C 03/14/24 09:34 38.9 C H 03/14/24 07:38 39.2 C H 113 H 20 164/105 H 03/14/24 07:38 03/14/24 07:15 114 H 03/14/24 06:30 111 H 168/104 H 03/14/24 06:11 116 H 162/116 H 03/14/24 05:44 116 H 162/116 H 03/14/24 04:47 110 H 152/95 H 03/14/24 04:27 111 H 160/116 H 03/14/24 04:00 37.0 C 114 H 20 172/125 H 03/14/24 02:23 108 H 03/14/24 02:18 103 H 144/90 H 03/14/24 02:03 105 H 174/111 H 03/14/24 01:37 36.8 C 105 H 20 174/111 H Pulse Ox O2 Del Method 03/14/24 11:41 98 Room Air 03/14/24 10:51 98 Room Air 03/14/24 10:12 03/14/24 09:34 03/14/24 07:38 97 Room Air 03/14/24 07:38 Room Air 03/14/24 07:15 03/14/24 06:30 03/14/24 06:11 03/14/24 05:44 03/14/24 04:47 03/14/24 04:27 03/14/24 04:00 98 Room Air 03/14/24 02:23 03/14/24 02:18 03/14/24 02:03 03/14/24 01:37 98 Room Air Diagnostic Findings Abdomen/Pelvis CT 03/13/24 19:18 Exam(s): CT ABDOMEN + PELVIS With Contrast IV Amt: 91 cc opti 320 EXAM: CT Abdomen and Pelvis With Intravenous Contrast CLINICAL HISTORY: Reason for exam: Trauma. TECHNIQUE: Axial computed tomography images of the abdomen and pelvis with intravenous contrast. CTDI is 37 mGy and DLP is 1238 mGy-cm. Automated exposure control was utilized for the study. A dose lowering technique was utilized adhering to the principles of ALARA. CONTRAST: Patient received 91 cc opti 320 of IV contrast COMPARISON: CT abdomen/pelvis on 12/02/2022 FINDINGS: Lung bases: Unremarkable. No mass. No consolidation. ABDOMEN: Liver: Unremarkable. No mass. Gallbladder and bile ducts: Cholelithiasis. No ductal dilation. Pancreas: Unremarkable. No mass. No ductal dilation. Spleen: Unremarkable. No splenomegaly. Adrenals: Unremarkable. No mass. Kidneys and ureters: Mild bilateral hydroureteronephrosis. No obstructing ureteral stone identified. Mild prominence of the urothelium in the right renal collecting system may represent ureteritis. Bilateral perinephric fat stranding. Small hypodensity in the right kidney is too small to definitively characterize. Stomach and bowel: Evaluation of the stomach is limited by underdistention. No mucosal thickening. No bowel obstruction or inflammation. PELVIS: Appendix: Normal appendix. Bladder: Bladder wall thickening is concerning for cystitis. Please correlate with urinalysis. Reproductive: Unremarkable as visualized. ABDOMEN and PELVIS: Intraperitoneal space: Unremarkable. No free air. No significant fluid collection. Bones/joints: No acute fracture. No dislocation. Surgical fixation of the proximal left femur. Degenerative changes of the spine. Soft tissues: Unremarkable. Vasculature: Phleboliths in the pelvis. Atherosclerotic changes of the vasculature. No abdominal aortic aneurysm. Lymph nodes: Unremarkable. No enlarged lymph nodes. IMPRESSION: 1. Mild bilateral hydroureteronephrosis. No obstructing ureteral stone identified. Mild prominence of the urothelium in the right renal collecting system may represent ureteritis. Bilateral perinephric fat stranding. 2. Bladder wall thickening is concerning for cystitis. Please correlate with urinalysis. 3. Cholelithiasis. 4. No acute fracture. Electronically signed by: Richard Lizarraga M.D. 03/13/24 20:[address] 03/13/24 19:18 Exam(s): CT C SPINE EXAM: CT Cervical Spine Without Intravenous Contrast CLINICAL HISTORY: Reason for exam: Trauma. TECHNIQUE: Axial computed tomography images of the cervical spine without intravenous contrast. CTDI is 37 mGy and DLP is 1238 mGy-cm. Automated exposure control was utilized for the study. A dose lowering technique was utilized adhering to the principles of ALARA. COMPARISON: CT C-spine on 11/06/2023 FINDINGS: Bones: Normal alignment. No acute fracture or bony lesion. Disc spaces: No subluxation. Mild degenerative changes of the spine. Soft tissues: Normal. Other: Atherosclerotic changes of the vasculature. IMPRESSION: No acute traumatic abnormality. Electronically signed by: Richard Lizarraga M.D. 03/13/24 20:[address] 03/13/24 19:18 Exam(s): CT CHEST With Contrast IV Amt: 91 cc opti 320 EXAM: CT Chest With Intravenous Contrast CLINICAL HISTORY: Reason for exam: Trauma. TECHNIQUE: Axial computed tomography images of the chest with intravenous contrast. CTDI is 37 mGy and DLP is 1238 mGy-cm. Automated exposure control was utilized for the study. A dose lowering technique was utilized adhering to the principles of ALARA. CONTRAST: Patient received 91 cc opti 320 of IV contrast COMPARISON: None FINDINGS: Lungs: Unremarkable. No mass. No consolidation. Pleural space: Unremarkable. No pneumothorax. No significant effusion. Heart: Coronary artery calcifications. No cardiomegaly. No significant pericardial effusion. Bones/joints: Mild degenerative changes of the spine. No acute fracture. No dislocation. Soft tissues: Unremarkable. Vasculature: See above. Lymph nodes: Unremarkable. No enlarged lymph nodes. IMPRESSION: No acute findings in the chest. Electronically signed by: Richard Lizarraga M.D. 03/13/24 20:40 PM Chest X-Ray 03/13/24 19:18 XR chest 1V portable HISTORY: 48 years-old Male fall from standing acute chest trauma status post fall COMPARISON: Chest CT of same day TECHNIQUE: AP view of the chest FINDINGS: Cardiac silhouette is enlarged. No pneumothorax, pleural effusion or airspace consolidation. The bones of the chest appear grossly intact. IMPRESSION: No acute process. ACT 112: Negative or not required by law. The above report was generated using voice recognition software. It may contain grammatical, syntax or spelling errors. Electronically signed by: Franklin Polanco M.D. 03/14/2024 6:[address] 03/13/24 19:18 Exam(s): CT HEAD Without Contrast EXAM: CT Head Without Intravenous Contrast CLINICAL HISTORY: Reason for exam: Trauma. TECHNIQUE: Axial computed tomography images of the head/brain without intravenous contrast. CTDI is 37 mGy and DLP is 1238 mGy-cm. Automated exposure control was utilized for the study. A dose lowering technique was utilized adhering to the principles of ALARA. COMPARISON: None FINDINGS: Brain: No acute infarct or hemorrhage identified. No extra-axial fluid collection. No mass effect or midline shift. Scattered areas of hypoattenuation in the supratentorial white matter likely represent chronic small vessel ischemic changes. Ventricles and sulci: Prominence of the ventricles and sulci is likely secondary to cerebral volume loss. Bones: Normal. No bony lesion or acute fracture. Subcutaneous tissues: Normal. Sinuses: Normal. No air-fluid levels or mucosal thickening. Mastoid air cells: Normal. Orbits: Grossly unremarkable. Other: Atherosclerotic calcifications in the intracranial vasculature. IMPRESSION: 1. No definite acute intracranial abnormality. Evaluation is limited by motion artifact. 2. Mild chronic small vessel ischemic changes and cerebral volume loss. Electronically signed by: Richard Lizarraga M.D. 03/13/24 20:54 PM
[2024-03-14] MEDS ORDERED: PHARMACY GLYCEMIC MGMT CONSULT PRN (15:21)
[2024-03-14] MEDS: DEXTROSE 5% 1,000 ML IV SCH (15:24)
[2024-03-14] MEDS: FLUCONAZOLE 200 MG/100 ML BAG IV SCH (16:06)
[2024-03-14] MEDS: POTASSIUM CHLORIDE 20 MEQ in DEXTROSE 5% 1,000 ML IV SCH (16:26)
[2024-03-14 17:16] LABS: BUN Creatinine Ratio 24.7 (10-20); Calcium 8.5 mg/dl (8.6-10.3); Creatinine Clr Calc Pharmacy 63.4 ml/min; Potassium 3.8 mmol/L (3.5-5.1)
[2024-03-14] MEDS: MIDODRINE HCL 2.5 MG TAB PO SCH (17:33)
[2024-03-14 17:50] LABS: Troponin I High Sensitivity 110.6 pg/ml (0-20)
[2024-03-14] MEDS: METOPROLOL SUCC 25MG EXT REL TAB PO SCH (20:10)
[2024-03-14] MEDS: oxyCODONE HCL IR 5 MG TAB (IMMEDIATE RELEASE) PO PRN (20:59)
[2024-03-14] MEDS: LANTUS PER UNIT CHARGE SQ ONE (21:15)
[2024-03-14 21:21] LABS: BUN Creatinine Ratio 23.3 (10-20); Potassium 3.6 mmol/L (3.5-5.1)
[2024-03-15] MEDS: INSULIN ASPART PER UNIT CHARGE SC SCH (00:36)
[2024-03-15 01:20] LABS: BUN Creatinine Ratio 21.4 (10-20); Calcium 8.3 mg/dl (8.6-10.3); Potassium 3.7 mmol/L (3.5-5.1)
[2024-03-15 07:14] LABS: Basophils # (auto) 0.14 K/uL (0.00-0.20); Eosinophils # (auto) 0.17 K/uL (0.00-0.50); Eosinophils % (auto) 1.2 %; Hematocrit (blood only) 37.9 % (42.0-52.0); Hemoglobin 12.2 g/dl (14.0-18.0); Immature Granulocytes # (auto) 0.13 K/uL (0.01-0.20); Immature Granulocytes % (auto) 0.9 %; Lymphocytes # (auto) 4.61 K/uL (1.20-3.40); Lymphocytes % (auto) 32.4 %; Mean Corpuscular Hgb Conc 32.2 g/dL (32.0-36.0); Mean Corpuscular Volume 80.8 fL (80.0-100.0); Mean Platelet Volume 10.9 fL (9.4-12.4); Monocytes # (auto) 1.47 K/uL (0.11-0.59); Monocytes % (auto) 10.3 %; Neutrophils # (auto) 7.71 K/uL (1.40-6.50); Neutrophils % (auto) 54.2 %; Nucleated RBC # (auto) 0.02 K/uL (0.00-0.12); Nucleated RBC % (auto) 0.1 %; Platelet Count 372 K/uL (130-400); RDW Coefficient of Variation 14.2 % (11.5-14.5); Red Blood Count 4.69 M/uL (4.70-6.10); White Blood Count 14.23 K/ul (4.8-10.8)
[2024-03-15 08:12] LABS: Albumin Globulin Ratio 1.1 (0.9-2); Albumin Level 3.2 gm/dl (3.4-5.0); BUN Creatinine Ratio 21.2 (10-20); Bilirubin,Total 1.4 mg/dl (0.2-1.0); Calcium 7.9 mg/dl (8.6-10.3); Creatinine Clr Calc Pharmacy 75.9 ml/min; Globulin 2.9 gm/dl (2.5-4.0); Magnesium 1.7 mg/dl (1.7-2.4); Phosphorus 1.9 mg/dl (2.5-4.9); Potassium 3.6 mmol/L (3.5-5.1); Total Protein 6.1 gm/dl (6.0-8.3)
--- NOTE | 2024-03-15 08:56 | Urology Progress Note ---
Date of Service March 15, 2024 Assessment & Plan (1) Urinary retention: (2) Acute UTI (urinary tract infection): (3) Hydronephrosis: Plan: 48-year-old male admitted for sepsis, complicated UTI, encephalopathy, and SAMANTHA on CKD. Patient febrile yesterday (Tmax 39.5), afebrile this morning Labs reviewedcreatinine improved to 1.32, WBC downtrending (14.23) Urine culture prelim with Klebsiella Blood cultures no growth x 24 hours Continue broad-spectrum antibiotics and narrow per sensitivity data when available Medrano catheter in place for management of urinary retention and maximize drainage in setting of bilateral hydronephrosis Creatinine has improved Recommend maintain Medraon catheter upon discharge Will arrange outpatient follow-up for catheter removal and ongoing management Continue antibiotics, supportive care and medical management per medicine team will sign off, please contact our service with any additional questions or concerns Admission and Anticipated Discharge Date Admission Date: March 13, 2024 Subjective Patient seen and examined at bedside this morning. He is sitting up resting in bed. He is somewhat somnolent, but answers questions. Reports fevers yesterday. Denies fever or chills at present. Medrano intact. Denies pain. He reports he had been performing CIC 4-5 times per day at home. Review of Systems Constitutional: as per Subjective / HPI Genitourinary: + as per Subjective / HPI Physical Exam Constitutional: no acute distress chronically ill appearing Respiratory: no respiratory distress and no labored breathing Musculoskeletal: Head/Neck/Chest: normocephalic Neurologic: moves all extremities and awake Psychiatric: Orientation: oriented x 3 and cooperative Genitourinary: Medrano patent and draining clear yellow urine Results & Data Vital Signs (Past 12 Hours) Vital Signs Temp Pulse Pulse Resp BP BP Pulse Ox 03/15/24 07:39 103 H 03/15/24 07:30 37.0 C 96 H 18 126/86 92 03/15/24 03:25 36.7 C 102 H 18 141/97 H 98 03/14/24 22:36 103 H 03/14/24 22:25 38.1 C H 104 H 19 125/87 99 O2 Del Method 03/15/24 07:39 03/15/24 07:30 Room Air 03/15/24 03:25 Room Air 03/14/24 22:36 03/14/24 22:25 Room Air PG Care Time/CCT Total # of Minutes Spent Total Time Spent with Patient: Total time spent is greater than 50% in coordination of care (as documented) at patient's floor/unit and/or counseling patient: Coding Level of Care Code 61241 SUB INP/OBS CARE /25MIN Diagnoses Urinary retention R33.9 Acute UTI (urinary tract infection) N39.0 Hydronephrosis N13.30
--- NOTE | 2024-03-15 08:57 | Pharmacy Report ---
Pharmacy Glycemic Short Note 2 - Date of Service March 15, 2024 - Glycemic Short BSG Results (Last 24 hours): 03/14/24 03/14/24 03/14/24 16:08 16:41 20:16 Glucose 153 H POC Glucose 135 H 282 H 03/14/24 03/15/24 03/15/24 20:17 00:26 00:38 Glucose 324 H* 186 H POC Glucose 179 H 03/15/24 03/15/24 03/15/24 04:02 06:31 07:28 Glucose 238 H POC Glucose 125 H 143 H OUTPATIENT ANTIDIABETIC REGIMEN: * Dulaglutide 1.5mg SQ qTues ASSESSMENT: * Pt admitted for complicated UTI, started on Zosyn and Fluconazole. * Type 2 DM managed on non-insulin regimen * A1c 7.3% from 12/2023 from notes * Pharmacy consulted for glycemic management * Pt received total of 29 units of insulin * 15 units insulin glargine * 14 units insulin aspart * Fasting BSG 143, within goal, therefore continuing similar basal today * BSG trending down overnight, will continue same parameters today * Of note, d5w started on admit for hypernatremia PLAN FOR INPATIENT GLYCEMIC CONTROL: * Hold outpatient oral diabetes medications * Basal insulin * Lantus 0-15 units SQ BID (see EMR for protocol details) * Bolus insulin * NovoLog per scale ACHS or Q6hrs while NPO * Goal Range: Low 110 mg/dL - High 140 mg/dL * Correction Factor: 25 mg/dL/unit * Nutritional / Prandial insulin per carb ratio of 1 unit per 15 grams CHO consumed
[2024-03-15] MEDS ORDERED: FLUDROCORTISONE ACETATE 0.1 MG TAB PO SCH (09:00)
[2024-03-15] MEDS: LANTUS PER UNIT CHARGE SQ SCH (09:11)
[2024-03-15] MEDS: cefTRIAXone SODIUM 2,000 MG/50 ML BAG IV SCH (12:07)
--- NOTE | 2024-03-15 14:06 | Hospitalist Progress Note ---
Date of Service March 15, 2024 Assessment & Plan (1) Encephalopathy: Plan Pt is a 48yoM with PMHx significant for chronic diastolic heart failure (EF 65- 70%, TTE 2022), CAD status post stent, hypertension, hyperlipidemia, orthostatic hypotension on midodrine, CKD (baseline creatinine 1.4), DMII on oral medications, migraine, chronic anemia (baseline hemoglobin of 10-11), chronic urinary retention, anxiety/mood disorder, past tobacco abuse presenting with severe sepsis once more in the setting of a urinary tract infection. Severe Sepsis Complicated urinary tract Infection Bilateral hydroureteronephrosis Patient presents with altered mental status Urine culture currently growing gram-negative bacilli Blood cultures 2 sets with no growth to date CT abdomen pelvis noting bilateral hydroureteronephrosis, possible ureteritis as well as possible cystitis Lactate elevated and down trended after fluid resuscitation Patient reports he does self cath at home. He has currently urinary catheter placed on admission. Urology recommends to continue it and follow-up as outpatient Antibiotics changed to cefazolin as per infectious disease committee recommendation. Fluconazole discontinued as per recommendation as well. Acute Metabolic/toxic Encephalopathy- Resolved likely due to sepsis/SAMANTHA on CKD and hypernatremia Likely in setting of severe sepsis noted above with UTI Patient also hypernatremic Also multiple psychotropic medications, Holding neuropsychotropic medications until patient mentation back to baseline Head CT unremarkable Hypernatremia Sodium 150 on admission Resolved with D5 administration Florinef likely contributed; on hold Elevated troponin Demand ischemia Hx of CAD s/p Stent Troponin elevated at 108.8 to 122.8 to 125.1, then downtrended EKG noting sinus tach Likely elevated in setting of above and acute infection Echo shows borderline to mild diffuse LV hypokinesis. EF of 50-55%; EF of 65-70% reported in echo in 12/27; Continue aspirin, Plavix, metoprolol and Lipitor. Uncontrolled hypertension On admission fludrocortisone and midodrine for orthostatic hypotension contributory and were held On home betablocker Toprol 25mg BID, consider holding for low BP (has parameters) resume midodrine, DC florinef for now. Chronic anemia Hgb stable at this time Continue to monitor SAMANTHA on CKD creatinine acutely elevated at 2.3 on admission downtrended to baseline chronic diastolic heart failure hx CAD status post stent hyperlipidemia on statin Rx DMII on oral medications reasonable control as of recent hemoglobin A1c of 7.08 December 2023 Basal/bolus per protocol Glycemic consult while on d5w Functional disability patient mother feels she cannot care for patient at home given his multiple comorbidities PT/OT ordered Diet: diabetic DVT prophylaxis with heparin subcu Dispo: PT/OT Time spent evaluating patient, direct bedside care, chart review, placing orders, interpretation of diagnostic studies, discussion with consultants, patient, and family members, as well as other required patient management activities is 50 minutes Please note the above document was generated using voice recognition software. It may contain grammatical, syntax or spelling errors. Any formal questions or concerns about the content, text or information contained within the body of this dictation should be directly addressed to the provider for clarification Admission and Anticipated Discharge Date Admission Date: March 13, 2024 Subjective Patient seen and examined at bedside. He is awake and interactive He is oriented x 3 He reports generalized fatigue and weakness No other significant events overnight Review of Systems Review of Systems: All systems reviewed & are unremarkable except as noted in Subjective Physical Exam Physical Exam: Constitutional: Alert oriented x 3; appears tired. Respiratory: normal respiratory effort, lungs clear to auscultation, no wheeze, rales, rhonchi. Normal insp/exp effort, no accessory muscle use Cardiovascular: RRR, no murmur, no edema Vessels: no JVD or carotid bruit Chest: normal inspection of chest Abdomen: normal bowel sounds, soft, nontender, no hepatosplenomegaly Musculoskeletal: no cyanosis or clubbing, extremities motor strength 5/5 Skin: no rashes, warm and dry normal turgor Neurologic: PERRL, EOMI, accommodation nl, no face palsy, no dysarthria CN's II- XI intact bilaterally and moves all extremities Psychiatric: A+Ox3, euthymic affect Results & Data Results & Data Vital Signs (Past 12 Hours) Vital Signs Temp Pulse Pulse Resp BP Pulse Ox O2 Del Method 03/15/24 11:15 36.8 C 93 H 18 135/94 97 Room Air 03/15/24 09:58 Room Air 03/15/24 07:39 103 H 03/15/24 07:30 37.0 C 96 H 18 126/86 92 Room Air 03/15/24 03:25 36.7 C 102 H 18 141/97 H 98 Room Air
[2024-03-15] MEDS: ceFAZolin 2000MG 2,000 MG/15 ML SYR IV SCH (14:37)
[2024-03-15] MEDS ORDERED: POTASSIUM PHOS 3 MMOL/1 ML INFUSION IV STA (15:24)
--- NOTE | 2024-03-15 15:36 | Cardiology Consultation ---
Date of Consultation March 15, 2024 Assessment & Plan (1) Sepsis: (2) Myocardial strain: Patient with no cardiac complaints. Denies recent or current chest pain or shortness of breath. Patient with mild elevation in high-sensitivity troponin with relatively flat trend, 108, 122, 122, 110 PG per mL respectively as obtained from 03/13/2024 to 03/14/2024. Suspect myocardial strain in the setting of fixed underlying coronary heart disease (known to be incompletely revascularized in the distal LAD territory which was a small vessel) in the setting of sepsis and sinus tachycardia. Discontinue metoprolol succinate 25 mg twice daily for now and will start him on short acting metoprolol to tartrate to allow for titration, 25 mg p.o. x 1 followed by 37.5 mg 2 times per day. Continue chronic dual antiplatelet therapy with aspirin, clopidogrel. Patient is on midodrine for blood pressure support while hospitalized. I anticipate that as he recovers from his infection he may not need this anymore as he historically has had difficult to control high blood pressure. Continue atorvastatin 40 mg daily. History of Present Illness Attending Physician: Duran Soto MD History of Present Illness Mr Moctezuma is a 48 year old male seen in cardiology consultation per the request of Dr Soto for the evaluation of sinus tachycardia, elevation in troponin, and mild diffuse left ventricular hypokinesis on echocardiogram. Patient had been hospitalized in November, with a complicated urinary tract infection, obstructive uropathy, sepsis, and acute kidney injury. He was discharged with a Medrano catheter which was subsequently removed as an outpatient and urology follow-up. He presented again via the emergency department two days ago on 03/13/2024 with complaints of generalized illness for four days prior to presentation, he has not been able to get out of bed and had a ground-level fall the day of presentation with noted confusion. CT of the abdomen pelvis performed on 03/13/2024 reveals mild bilateral hydroureteronephrosis without obstructing stone. Bladder wall was thickened and concerning for cystitis per the radiology report. Urinalysis has yielded Klebsiella pneumoniae which was also noted on 03/06/2024. Blood culture x 1 obtained on 03/13/2024 without growth thus far. Sinus tachycardia has been noted on EKG and telemetry since arrival with average heart rate in the 100 220 bpm range. EKG performed on presentation 03/13/2024 revealed sinus tachycardia 129 bpm with poor R wave progression in the anterior precordial leads and therefore an age-indeterminate anterior infarct cannot be excluded. Nonspecific diffuse T wave flattening noted in the lateral leads on presentation. Repeat EKG performed during my assessment reveals sinus tachycardia 109 bpm with slightly improved R wave progression in lead V3. Ongoing diffuse T wave flattening noted. Echocardiogram performed on 03/14/2024 revealed borderline to mild diffuse left ventricular hypokinesis, low normal LVEF in the range of 50 to 55%, grade 1 diastolic dysfunction. Sinus tachycardia noted during echocardiogram. History: 1. CAD, cardiac catheterization -s/p PCI of OM with two overlapping drug eluting stents 06/16/22 -residual 60-70% mid LAD (not hemodynamically significant by FFR - distal LAD with serial 70-80% stenosis 2. Post cath echo 12/2022 LVEF 65-70% 3. Previously noted to have LVEF of 45% however in 2021. 4. Difficult to control HTN 5. Dyslipidemia 6. Bipolar disorder 7. Diabetes Allergies Allergy/AdvReac Type Severity Reaction Status Date / Time adhesive Allergy Intermediate Contact Verified 12/23/23 10:39 dermatitis latex Allergy Mild RASH Verified 12/23/23 10:39 tramadol Allergy Unknown n/v Verified 12/23/23 10:39 Home Medications Medication Instructions Recorded Confirmed Type gabapentin 300 mg capsule 300 mg PO TID 06/16/22 03/13/24 History montelukast 10 mg tablet 10 mg PO QAM 06/16/22 03/13/24 History pantoprazole 40 mg tablet,delayed 40 mg PO QAM 06/16/22 03/13/24 History release aspirin 81 mg tablet,delayed 81 mg PO QAM 01/31/23 03/13/24 History release buspirone 10 mg tablet 10 mg PO BID 01/31/23 03/13/24 History cholecalciferol (vitamin D3) 25 25 mcg PO QDL 01/31/23 03/13/24 History mcg (1,000 unit) capsule (Vitamin D3) duloxetine 60 mg capsule,delayed 60 mg PO QAM 01/31/23 03/13/24 History release atorvastatin 40 mg tablet 40 mg PO QAM 10/19/23 03/13/24 History bupropion HCl 450 mg 24 hr tablet, 450 mg PO QAM 10/19/23 03/13/24 History extended release clonazepam 0.5 mg tablet 0.5 mg PO BID PRN Anxiety 10/19/23 03/13/24 History clopidogrel 75 mg tablet 75 mg PO DAILYBL 10/19/23 03/13/24 History dulaglutide 1.5 mg/0.5 mL 1.5 mg subcut TU 10/19/23 03/13/24 History subcutaneous pen injector (Trulicity) duloxetine 30 mg capsule,delayed 30 mg PO QAM 10/19/23 03/13/24 History release magnesium oxide 400 mg (241.3 mg 400 mg PO QAM 10/19/23 03/13/24 History magnesium) tablet metoprolol succinate 25 mg 25 mg PO BID 10/19/23 03/13/24 History tablet,extended release 24 hr oxybutynin chloride 10 mg 10 mg PO QAM 10/19/23 03/13/24 History tablet,extended release 24 hr ramelteon 8 mg tablet 8 mg PO HS PRN Sleep 10/19/23 03/13/24 History lidocaine HCl 2 % mucosal jelly in 0.5 ml EXT BID PRN catheter Pain 10/26/23 03/13/24 Rx applicator #125 mL L.acidop,casei,lactis,rham-B.lact,ela 1 cap PO DAILY #10 caps 11/15/23 03/13/24 Rx 625 mg (10 billion cell) capsule (Advanced Probiotic) fludrocortisone 0.1 mg tablet 0.1 mg PO QAM #30 tabs 11/15/23 03/13/24 Rx midodrine 5 mg tablet 5 mg PO BID #30 tabs 11/15/23 03/13/24 Rx nicotine 14 mg/24 hr daily 1 patch transdermal DAILY #14 ea 11/15/23 03/13/24 Rx transdermal patch polyethylene glycol 3350 17 gram 17 g PO DAILY #14 ea 11/15/23 03/13/24 Rx oral powder packet (Miralax) sennosides 8.6 mg-docusate sodium 1 tab PO QAM #30 tabs 11/15/23 03/13/24 Rx 50 mg tablet (Senokot-S) thiamine HCl (vitamin B1) 100 mg 100 mg PO QAM #30 tabs 11/15/23 03/13/24 Rx tablet amoxicillin 875 mg-potassium 1 tab PO BID #20 tabs 03/07/24 03/13/24 Rx clavulanate 125 mg tablet Patient History Medical History Noncompliance Central retinal artery occlusion, left eye Diabetic peripheral neuropathy Surgical History S/P arthroscopic knee surgery History of dental surgery Family History Other Cancer Diabetes Hypertension Social History Smoking Status: Never smoker Tobacco Type: Smokeless Tobacco (Dip or Chew) Second Hand Exposure: No; Do You Dip or Chew Tobacco: Yes; Hx Alcohol Use: Yes Alcohol type: beer Hx Substance Use: Yes Last Used Substance: Days (ago) Last Used Substance Other:: Urine tox came back positive for ecstasy, benzos, and marijuana Preferred Language: Dutch Communication Ability: Effective Certified Real Estate Appraiser Required: No Beliefs That Will Affect Care: None Current Living Situation: Family Current Living Situation Comment: Lives with parents Other Information That Helps Us Care for You: No Feels Safe at Home: Yes Safety Concerns: Feels Safe At This Time Assistive Devices: Cane and Walker Review of Systems Review of Systems: All systems reviewed & are unremarkable except as noted in HPI & below Physical Exam Physical Exam: General: no acute distress and stated age Eyes: conjunctiva are pink and non-injected, sclera clear Neck: normal jugular venous pulse, no hepatojugular reflux Chest: normal shape and normal respiratory effort Lungs: clear to auscultation and percussion Cardiac Exam: - regular heart sounds, no murmurs, rubs, or gallops, no jugular venous distention Abdomen: abdomen soft, non-tender, no abnormal masses and no hepatosplenomegaly Musculoskeletal: no gait disturbance, no weakness Extremities: no edema and no cyanosis Neuro:awake, conversant, oriented to date, day, and place, resting tremor noted : Medrano catheter in place draining clear yellow urine Results & Data Vital Signs (Past 12 Hours) Vital Signs Temp Pulse Pulse Resp BP Pulse Ox O2 Del Method 03/15/24 14:10 98 H 03/15/24 11:15 36.8 C 93 H 18 135/94 97 Room Air 03/15/24 09:58 Room Air 03/15/24 07:39 103 H 03/15/24 07:30 37.0 C 96 H 18 126/86 92 Room Air Laboratory Results Cardiac Enzymes 03/14/24 03/15/24 Range/Units 16:41 06:31 AST 22 (13-39) U/L Troponin I High Sens 110.6 H* (0-20) pg/ml CBC 03/15/24 Range/Units 06:31 WBC 14.23 H (4.8-10.8) K/ul RBC 4.69 L (4.70-6.10) M/uL Hgb 12.2 L (14.0-18.0) g/dl Hct 37.9 L (42.0-52.0) % Plt Count 372 (130-400) K/uL Neut # (Auto) 7.71 H (1.40-6.50) K/uL Lymph # (Auto) 4.61 H (1.20-3.40) K/uL [place] # (Auto) 1.47 H (0.11-0.59) K/uL Eos # (Auto) 0.17 (0.00-0.50) K/uL Baso # (Auto) 0.14 (0.00-0.20) K/uL Comprehensive Metabolic Panel 03/14/24 03/14/24 03/15/24 Range/Units 16:41 20:17 00:38 Sodium 148 H 142 142 (136-145) mmol/L Potassium 3.8 3.6 3.7 (3.5-5.1) mmol/L Chloride 114 H 110 H 109 H (98-107) mmol/L Carbon Dioxide 25 24 25 (21-32) mmol/L BUN 39 H 37 H 34 H (6-23) mg/dl Creatinine 1.58 H 1.59 H 1.59 H (0.6-1.4) mg/dl Glucose 153 H 324 H* 186 H (70-99(Fasting)) mg/dl Calcium 8.5 L 8.0 L 8.3 L (8.6-10.3) mg/dl AST (13-39) U/L ALT (7-52) U/L Alkaline Phosphatase (34-104) U/L Total Protein (6.0-8.3) gm/dl Albumin (3.4-5.0) gm/dl 03/15/24 Range/Units 06:31 Sodium 140 (136-145) mmol/L Potassium 3.6 (3.5-5.1) mmol/L Chloride 108 H (98-107) mmol/L Carbon Dioxide 22 (21-32) mmol/L BUN 28 H (6-23) mg/dl Creatinine 1.32 (0.6-1.4) mg/dl Glucose 238 H (70-99(Fasting)) mg/dl Calcium 7.9 L (8.6-10.3) mg/dl AST 22 (13-39) U/L ALT 17 (7-52) U/L Alkaline Phosphatase 59 (34-104) U/L Total Protein 6.1 D (6.0-8.3) gm/dl Albumin 3.2 L (3.4-5.0) gm/dl Intake and Output 03/15/24 03/15/24 03/15/24 06:59 14:59 22:59 Intake Total 1510 / 4326.667 1283.333 / 1283.333 Output Total 750 / 1500 450 / 450 Balance 760 / 2826.667 833.333 / 833.333 Intake: IV 1110 / 3446.667 983.333 / 983.333 Fluconazole 200 mg In 100 ml @ 100 / 100 100 mls/hr IV DAILY [facility] Rx#: [id number] Piperacillin/Tazobactam 4.5 gm 100 / 300 100 / 100 In 100 ml @ 25 mls/hr IV Q8H [facility] Rx#:[id number] Potassium Chloride 20 meq In 1010 / 1010 733.333 / 733.333 Dextrose 5% 1,000 ml @ 100 mls/ hr IV .Q10H6M [facility] Rx#:[id number] cefTRIAXone SODIUM 2,000 mg In 50 / 50 50 ml @ 100 mls/hr IV Q24H [facility] Rx#:[id number] Oral 400 / 880 300 / 300 Output: Urine Amount (Catheter) 750 / 1500 450 / 450 Medrano/Indwelling 750 / 1500 450 / 450 Other: Weight 87.5 kg Weight Measurement Method Built in [facility] Diagnostic Findings EKG tracings as noted in HPI Echocardiogram performed 03/14/2024 and interpreted independently: Sinus tachycardia with rate in the range of 100 205 bpm present during echocardiogram. Mild concentric left ventricular hypertrophy is present. Borderline to mild diffuse left ventricular hypokinesis is present The left ventricular ejection fraction is at the lower limit of normal at 50 to 55% Grade 1 diastolic dysfunction noted No significant valvular heart disease
[2024-03-15] MEDS: METOPROLOL TARTRATE 25 MG TAB PO STA (15:37)
--- NOTE | 2024-03-15 15:42 | Electrocardiogram Report ---
Test Reason : Blood Pressure : */* mmHG Vent. Rate : 109 BPM Atrial Rate : 109 BPM P-R Int : 130 ms QRS Dur : 82 ms QT Int : 336 ms P-R-T Axes : 58 -6 88 degrees QTcB Int : 452 ms Poor data quality, interpretation may be adversely affected Sinus tachycardia Possible Left atrial enlargement Nonspecific T wave abnormality Abnormal ECG When compared with ECG of 13-Mar-2024 19:22, Fusion complexes are no longer Present ST no longer depressed in Lateral leads Confirmed by Lazaro Arthur ([id number]) on 03/15/2024 3:41:32 PM Referred By: REFERRED SELF Confirmed By: Lazaro Arthur
[2024-03-15] MEDS: POTASSIUM PHOSPHATE 15 MMOL in SODIUM CHLORIDE 0.9% 250 ML IV ONE (16:33)
[2024-03-15] MEDS: METOPROLOL TARTRATE 25 MG TAB PO SCH (21:21)
[2024-03-16 10:13] LABS: Basophils # (auto) 0.13 K/uL (0.00-0.20); Basophils % (auto) 0.7 %; Eosinophils # (auto) 0.38 K/uL (0.00-0.50); Eosinophils % (auto) 2.1 %; Hematocrit (blood only) 40.6 % (42.0-52.0); Hemoglobin 12.6 g/dl (14.0-18.0); Immature Granulocytes # (auto) 0.12 K/uL (0.01-0.20); Immature Granulocytes % (auto) 0.7 %; Lymphocytes # (auto) 3.07 K/uL (1.20-3.40); Mean Corpuscular Hemoglobin 25.9 pg (25.0-34.0); Mean Corpuscular Volume 83.5 fL (80.0-100.0); Mean Platelet Volume 11.3 fL (9.4-12.4); Monocytes # (auto) 1.34 K/uL (0.11-0.59); Monocytes % (auto) 7.4 %; Neutrophils # (auto) 13.05 K/uL (1.40-6.50); Neutrophils % (auto) 72.1 %; Platelet Count 303 K/uL (130-400); RDW Coefficient of Variation 14.4 % (11.5-14.5); RDW Standard Deviation 43.2 fL (36.4-46.3); Red Blood Count 4.86 M/uL (4.70-6.10); White Blood Count 18.09 K/ul (4.8-10.8)
[2024-03-16 10:30] LABS: BUN Creatinine Ratio 17.8 (10-20); Calcium 8.5 mg/dl (8.6-10.3); Creatinine Clr Calc Pharmacy 68.7 ml/min; Potassium 3.8 mmol/L (3.5-5.1)
--- NOTE | 2024-03-16 11:26 | Electrocardiogram Report ---
Test Reason : Blood Pressure : */* mmHG Vent. Rate : 91 BPM Atrial Rate : 91 BPM P-R Int : 136 ms QRS Dur : 86 ms QT Int : 376 ms P-R-T Axes : 45 -24 127 degrees QTcB Int : 462 ms Normal sinus rhythm Possible Left atrial enlargement Septal infarct , age undetermined T wave abnormality, consider lateral ischemia Abnormal ECG When compared with ECG of 15-Mar-2024 14:49, T wave inversion now evident in Lateral leads Confirmed by Lazaro Arthur ([id number]) on 03/16/2024 11:26:08 AM Referred By: REFERRED SELF Confirmed By: Lazaro Arthur
--- NOTE | 2024-03-16 13:44 | Hospitalist Progress Note ---
Date of Service March 16, 2024 Assessment & Plan (1) Encephalopathy: Plan Pt is a 48yoM with PMHx significant for chronic diastolic heart failure (EF 65- 70%, TTE 2022), CAD status post stent, hypertension, hyperlipidemia, orthostatic hypotension on midodrine, CKD (baseline creatinine 1.4), DMII on oral medications, migraine, chronic anemia (baseline hemoglobin of 10-11), chronic urinary retention, anxiety/mood disorder, past tobacco abuse presenting with severe sepsis once more in the setting of a urinary tract infection. Severe Sepsis Complicated urinary tract Infection Bilateral hydroureteronephrosis Patient presents with altered mental status Urine culture currently growing K. pneumoniae Blood cultures 2 sets with no growth to date CT abdomen pelvis noting bilateral hydroureteronephrosis, possible ureteritis as well as possible cystitis Lactate elevated and down trended after fluid resuscitation Patient reports he does self cath at home. He has currently urinary catheter placed on admission. Urology recommends to continue it and follow-up as outpatient Antibiotics changed to cefazolin as per infectious disease committee recommendation. Fluconazole discontinued as per recommendation as well. Acute Metabolic/toxic Encephalopathy- Resolved likely due to sepsis/SAMANTHA on CKD and hypernatremia Likely in setting of severe sepsis noted above with UTI Patient also hypernatremic Head CT unremarkable mentation back to baseline Hypernatremia- resolved Sodium 150 on admission Resolved with D5 administration Florinef likely contributed; on hold Elevated troponin Demand ischemia Hx of CAD s/p Stent Troponin elevated at 108.8 to 122.8 to 125.1, then downtrended EKG noting sinus tach Likely elevated in setting of above and acute infection Echo shows borderline to mild diffuse LV hypokinesis. EF of 50-55%; EF of 65-70% reported in echo in 12/27; Continue aspirin, Plavix, and Lipitor. Cardiology consulted; recommend to increase metoprolol to 37.5 mg twice a day. History of orthostatic hypotension On metoprolol tartrate 37.5 mg twice a day resume midodrine, DC florinef for now. Compression stockings ordered Chronic anemia Hgb stable at this time Continue to monitor SAMANTHA on CKD creatinine acutely elevated at 2.3 on admission downtrended to baseline chronic diastolic heart failure hx CAD status post stent hyperlipidemia on statin Rx DMII on oral medications reasonable control as of recent hemoglobin A1c of 7.08 December 2023 Basal/bolus per protocol Glycemic consult while on d5w Functional disability patient mother feels she cannot care for patient at home given his multiple comorbidities PT/OT ordered Diet: diabetic DVT prophylaxis with heparin subcu Dispo: PT/OT Time spent evaluating patient, direct bedside care, chart review, placing orders, interpretation of diagnostic studies, discussion with consultants, patient, and family members, as well as other required patient management activities is 50 minutes Please note the above document was generated using voice recognition software. It may contain grammatical, syntax or spelling errors. Any formal questions or concerns about the content, text or information contained within the body of this dictation should be directly addressed to the provider for clarification Admission and Anticipated Discharge Date Admission Date: March 13, 2024 Subjective Patient seen and examined at bedside. Is comfortable not in distress. Review of Systems Review of Systems: All systems reviewed & are unremarkable except as noted in Subjective Physical Exam Physical Exam: Constitutional: Alert oriented x 3; appears tired. Respiratory: normal respiratory effort, lungs clear to auscultation, no wheeze, rales, rhonchi. Normal insp/exp effort, no accessory muscle use Cardiovascular: RRR, no murmur, no edema Vessels: no JVD or carotid bruit Chest: normal inspection of chest Abdomen: normal bowel sounds, soft, nontender, no hepatosplenomegaly Musculoskeletal: no cyanosis or clubbing, extremities motor strength 5/5 Skin: no rashes, warm and dry normal turgor Neurologic: PERRL, EOMI, accommodation nl, no face palsy, no dysarthria CN's II- XI intact bilaterally and moves all extremities Psychiatric: A+Ox3, euthymic affect Results & Data Results & Data Vital Signs (Past 12 Hours) Vital Signs Temp Pulse Resp BP Pulse Ox O2 Del Method 03/16/24 11:23 36.5 C 94 H 18 128/84 96 Room Air 03/16/24 07:13 37.0 C 90 17 146/93 H 97 Room Air 03/16/24 02:45 37.9 C H 88 17 130/89 97 Room Air
--- NOTE | 2024-03-16 13:51 | Cardiology Progress Note ---
Date of Service March 16, 2024 Assessment & Plan (1) Sepsis: (2) Myocardial strain: Plan: EKG performed today 03/16/2024 and reviewed/interpreted independently: Rate improved, sinus rhythm at 91 bpm, age-indeterminate septal infarct pattern noted in lead V2, lateral T wave inversions noted in the precordial leads as well as the high lateral leads suggestive of ischemia, or stress-induced cardiomyopathy is still certainly a consideration. Patient with no cardiac complaints. Denies recent or current chest pain or shortness of breath. Patient with mild elevation in high-sensitivity troponin with relatively flat trend, 108, 122, 122, 110 PG per mL respectively as obtained from 03/13/2024 to 03/14/2024. Suspect myocardial strain in the setting of fixed underlying coronary heart disease (known to be incompletely revascularized in the distal LAD territory which was a small vessel) in the setting of sepsis and sinus tachycardia. Borderline to mild diffuse left ventricular hypokinesis noted on echocardiogram this admission, LVEF in the range of 50 to 54%. Continue short acting metoprolol to tartrate to allow for titration, 25 mg p.o. x 1 followed by 37.5 mg 2 times per day. Continue chronic dual antiplatelet therapy with aspirin, clopidogrel. Patient is on midodrine for blood pressure support while hospitalized. I anticipate that as he recovers from his infection he may not need this anymore as he historically has had difficult to control high blood pressure. Continue atorvastatin 40 mg daily. Admission and Anticipated Discharge Date Admission Date: March 13, 2024 Subjective Patient seen in cardiology follow-up. More comfortable today. Afebrile overnight and thus far today. Heart rate improved down to the 90s for his average rate today with having increase metoprolol dose yesterday, having been in the range of 100 115 bpm yesterday per review of telemetry. Physical Exam Physical Exam: General: no acute distress and stated age Eyes: conjunctiva are pink and non-injected, sclera clear Neck: normal jugular venous pulse, no hepatojugular reflux Chest: normal shape and normal respiratory effort Lungs: clear to auscultation and percussion Cardiac Exam: - regular heart sounds, no murmurs, rubs, or gallops, no jugular venous distention Abdomen: abdomen soft, non-tender, no abnormal masses and no hepatosplenomegaly Musculoskeletal: no gait disturbance, no weakness Extremities: no edema and no cyanosis Neuro:awake, conversant, oriented to date, day, and place, resting tremor noted : Medrano catheter in place draining clear yellow urine Results & Data Vital Signs (Past 12 Hours) Vital Signs Temp Pulse Resp BP Pulse Ox O2 Del Method 03/16/24 11:23 36.5 C 94 H 18 128/84 96 Room Air 03/16/24 07:13 37.0 C 90 17 146/93 H 97 Room Air 03/16/24 02:45 37.9 C H 88 17 130/89 97 Room Air Laboratory Results Abnormal lab results 03/15/24 03/16/24 03/16/24 Range/Units 20:15 07:12 09:51 WBC 18.09 H (4.8-10.8) K/ul Hgb 12.6 L (14.0-18.0) g/dl Hct 40.6 L (42.0-52.0) % MCHC 31.0 L (32.0-36.0) g/dL Neut # (Auto) 13.05 H (1.40-6.50) K/uL [place] # (Auto) 1.34 H (0.11-0.59) K/uL Chloride 109 H (98-107) mmol/L BUN 26 H (6-23) mg/dl Creatinine 1.46 H (0.6-1.4) mg/dl Glucose 206 H (70-99(Fasting)) mg/dl POC Glucose 132 H 157 H (70-99) mg/dl Calcium 8.5 L (8.6-10.3) mg/dl 03/16/24 Range/Units 11:33 WBC (4.8-10.8) K/ul Hgb (14.0-18.0) g/dl Hct (42.0-52.0) % MCHC (32.0-36.0) g/dL Neut # (Auto) (1.40-6.50) K/uL [place] # (Auto) (0.11-0.59) K/uL Chloride (98-107) mmol/L BUN (6-23) mg/dl Creatinine (0.6-1.4) mg/dl Glucose (70-99(Fasting)) mg/dl POC Glucose 194 H (70-99) mg/dl Calcium (8.6-10.3) mg/dl
--- NOTE | 2024-03-16 15:13 | Pharmacy Report ---
Pharmacy Glycemic Short Note 2 - Date of Service March 16, 2024 - Glycemic Short BSG Results (Last 24 hours): 03/15/24 03/15/24 03/16/24 16:12 20:15 07:12 Glucose POC Glucose 83 132 H 157 H 03/16/24 03/16/24 09:51 11:33 Glucose 206 H POC Glucose 194 H OUTPATIENT ANTIDIABETIC REGIMEN: * Dulaglutide 1.5mg SQ qTues ASSESSMENT: 03/16: * Shashi received 22 units of insulin yesterday (16 units basal + 6 units bolus) * Dextrose containing IV fluids were discontinued on 03/15 * Fasting BSG of 157 mg/dL. Will adjust basal insulin scale so that patient receives higher dose of 10 units if BSG continues to trend upward. * Post prandial BSGs are variable. Lunch tends to be the highest of the day with BSGs at low end of goal throughout the evening. BSG decreased from 199 -> 83 mg/dL at dinner yesterday. Will loosen correction factor, tighten carb coverage. 03/15 * Pt admitted for complicated UTI, started on Zosyn and Fluconazole. * Type 2 DM managed on non-insulin regimen * A1c 7.3% from 12/2023 from notes * Pharmacy consulted for glycemic management * Pt received total of 29 units of insulin * 15 units insulin glargine * 14 units insulin aspart * Fasting BSG 143, within goal, therefore continuing similar basal today * BSG trending down overnight, will continue same parameters today * Of note, d5w started on admit for hypernatremia PLAN FOR INPATIENT GLYCEMIC CONTROL: * Basal insulin * Lantus 4-8-10 units SQ BID (see EMR for protocol details) * Bolus insulin * NovoLog per scale ACHS or Q6hrs while NPO * Goal Range: Low 110 mg/dL - High 140 mg/dL * Correction Factor: 35 mg/dL/unit * Nutritional / Prandial insulin per carb ratio of 1 unit per 12 grams CHO consumed
[2024-03-16] MEDS: MIDODRINE HCL 2.5 MG TAB PO SCH (17:08)
[2024-03-17 07:20] LABS: Basophils # (auto) 0.07 K/uL (0.00-0.20); Basophils % (auto) 0.4 %; Eosinophils # (auto) 0.62 K/uL (0.00-0.50); Eosinophils % (auto) 3.5 %; Hematocrit (blood only) 35.8 % (42.0-52.0); Hemoglobin 11.3 g/dl (14.0-18.0); Immature Granulocytes # (auto) 0.12 K/uL (0.01-0.20); Immature Granulocytes % (auto) 0.7 %; Lymphocytes # (auto) 3.15 K/uL (1.20-3.40); Lymphocytes % (auto) 17.6 %; Mean Corpuscular Hemoglobin 25.9 pg (25.0-34.0); Mean Corpuscular Hgb Conc 31.6 g/dL (32.0-36.0); Mean Corpuscular Volume 82.1 fL (80.0-100.0); Mean Platelet Volume 12.4 fL (9.4-12.4); Monocytes # (auto) 1.31 K/uL (0.11-0.59); Monocytes % (auto) 7.3 %; Neutrophils # (auto) 12.61 K/uL (1.40-6.50); Neutrophils % (auto) 70.5 %; Platelet Count 274 K/uL (130-400); RDW Coefficient of Variation 13.8 % (11.5-14.5); RDW Standard Deviation 40.6 fL (36.4-46.3); Red Blood Count 4.36 M/uL (4.70-6.10); White Blood Count 17.88 K/ul (4.8-10.8)
[2024-03-17 07:26] VITALS: RESP 18
[2024-03-17 07:29] LABS: Calcium 8.6 mg/dl (8.6-10.3); Creatinine Clr Calc Pharmacy 70.6 ml/min; Potassium 3.8 mmol/L (3.5-5.1)
[2024-03-17 10:25] VITALS: TEMP 98.2; O2SAT 96
--- NOTE | 2024-03-17 10:32 | Cardiology Progress Note ---
Date of Service March 17, 2024 Assessment & Plan (1) Sepsis: (2) Myocardial strain: Plan: 48 year old male with h/o CAD,s/p two overlapping Tam to the Cx OM in 06/2022 with known residual LAD disease. Admitted on 03/13/24 with change in mental status, and found to have urinary retention and recurrent UTI. Most recent fever was on 03/16/24. Cardiology consulted due to abnormal EKG and borderline to mild diffuse LV hypokinesis on echo, LVEF 50-54% , previously ~60%. EKG performed 03/16/2024 and reviewed/interpreted independently: Rate improved, sinus rhythm at 91 bpm, age-indeterminate septal infarct pattern noted in lead V2, lateral T wave inversions noted in the precordial leads as well as the high lateral leads suggestive of ischemia, or stress-induced cardiomyopathy is still certainly a consideration. Patient with no cardiac complaints. Denies recent or current chest pain or shortness of breath. Patient with mild elevation in high-sensitivity troponin with relatively flat trend, 108, 122, 122, 110 PG per mL respectively as obtained from 03/13/2024 to 03/14/2024. Suspect myocardial strain in the setting of fixed underlying coronary heart disease. Cardiac catheterization films from 06/2022 reviewed. LAD is a small vessel with diffuse disease and without symptoms of overt angina recommend ongoing medical therapy. Will arrange pharm nuclear stress as outpatient to assess ischemic burden. Continue chronic dual antiplatelet therapy with aspirin, clopidogrel. Patient is on midodrine for blood pressure support while hospitalized. [employer]IST fludrocortisone on hold. Change metoprolol to succinate 50 mg BID while hospitalized to assess tolerance. Continue atorvastatin 40 mg daily.Add lipid panel to this am's labs. Admission and Anticipated Discharge Date Admission Date: March 13, 2024 Subjective Patient seen in cardiology follow up. Slightly more alert today compared to yesterday. Denies chest pain or shortness of breath. Describes poor mobility as of late at home. Patient asked me how may days he has been in the hospital and notes he certainly has no recollection of at least the first two days out of his five day stay thus far. Telemetry reveals SR in the 90s. Review of Systems Review of Systems: All systems reviewed & are unremarkable except as noted in HPI & below Physical Exam Physical Exam: General: no acute distress and stated age Eyes: conjunctiva are pink and non-injected, sclera clear Neck: normal jugular venous pulse, no hepatojugular reflux Chest: normal shape and normal respiratory effort Lungs: clear to auscultation and percussion Cardiac Exam: - regular heart sounds, no murmurs, rubs, or gallops, no jugular venous distention Abdomen: abdomen soft, non-tender, no abnormal masses and no hepatosplenomegaly Musculoskeletal: no gait disturbance, no weakness Extremities: no edema and no cyanosis Neuro:awake, conversant, oriented to date, day, and place, resting tremor noted : Medrano catheter in place draining clear yellow urine Results & Data Vital Signs (Past 12 Hours) Vital Signs Temp Pulse Resp BP Pulse Ox O2 Del Method 03/17/24 07:25 37.3 C 91 H 18 156/96 H 95 Room Air 03/17/24 03:03 36.8 C 91 H 16 166/105 H 95 Room Air 03/16/24 22:59 37.4 C 97 H 21 167/99 H 97 Room Air Laboratory Results CBC 03/17/24 Range/Units 06:01 WBC 17.88 H (4.8-10.8) K/ul RBC 4.36 L (4.70-6.10) M/uL Hgb 11.3 L (14.0-18.0) g/dl Hct 35.8 L (42.0-52.0) % Plt Count 274 (130-400) K/uL Neut # (Auto) 12.61 H (1.40-6.50) K/uL Lymph # (Auto) 3.15 (1.20-3.40) K/uL [place] # (Auto) 1.31 H (0.11-0.59) K/uL Eos # (Auto) 0.62 H (0.00-0.50) K/uL Baso # (Auto) 0.07 (0.00-0.20) K/uL Comprehensive Metabolic Panel 03/16/24 03/17/24 Range/Units 09:51 06:01 Sodium 142 141 (136-145) mmol/L Potassium 3.8 3.8 (3.5-5.1) mmol/L Chloride 109 H 107 (98-107) mmol/L Carbon Dioxide 25 27 (21-32) mmol/L BUN 26 H 27 H (6-23) mg/dl Creatinine 1.46 H 1.42 H (0.6-1.4) mg/dl Glucose 206 H 177 H (70-99(Fasting)) mg/dl Calcium 8.5 L 8.6 (8.6-10.3) mg/dl Intake and Output 03/16/24 03/17/24 03/17/24 22:59 06:59 14:59 Intake Total 240 / 1800 480 / 1800 Output Total 751 / 2501 1050 / 2501 500 / 500 Balance -511 / -701 -570 / -701 -500 / -500 Intake: Oral 240 / 1800 480 / 1800 Output: Urine Amount (Catheter) 750 / 2500 1050 / 2500 500 / 500 Med[place]/Indwelling 750 / 2500 1050 / 2500 500 / 500 # Bowel Movements Other: Weight 87.8 kg Weight Measurement Method Built in [facility]
[2024-03-17 11:01] LABS: Chol HDL Ratio 6.3 (0-5)
[2024-03-17 12:40] VITALS: BP 105/72; PULSE 96
--- NOTE | 2024-03-17 13:11 | Discharge Summary ---
Date of Service March 17, 2024 Admission HPI Per Admitting Provider History obtained from patient, family, and records. Limited history from patient secondary to disorientation. Medical history significant for chronic diastolic heart failure (EF 65-70%, TTE 2022), CAD status post stent, hypertension, hyperlipidemia, orthostatic hypotension on midodrine, CRI (baseline creatinine 1.4), DM2 on oral medications, migraine, chronic anemia (baseline hemoglobin of 10-11), chronic urinary retention, anxiety/mood disorder, past tobacco abuse. Last confinement November 2023 for sepsis secondary to complicated UTI. Urine CS grew Citrobacter and Pseudomonas. Midodrine started for orthostatic hypotension attributed to DM. Patient discharged to rehab facility with Medrano catheter. Medrano catheter discontinued following outpatient [facility] urology visit last month. Successful voiding trial January 2024 as per documentation. Patient Medrano catheter removed as patient expressed interest in learning CIC. Patient seen at PCPs office last week. Patient complaining of bladder issue and progressive back and leg pain outpatient MRI showed multilevel degenerative disease without significant spinal stenosis or disc herniation as per provider note. Patient prescribed baclofen. Unclear if patient started prescription. Patient seen at the ER last week for right ear pain Discharge on Augmentin course for otitis media. Patient has been sick at home the last 4 days as per mother. Not getting up from bed. More confused than usual. Patient denies headache, chest pain, SOB. Ear pain better as per patient. Patient repeatedly complaining that he cannot pee. Some abdominal discomfort. No EtOH intake as per patient family. Highest SBP of 170s documented at the ER. Ceftriaxone administered at the ER. Medical History as above Surgical History : Dental surgery, knee surgery, vascular procedure Family History : Prostate cancer, DM, hypertension Personal/Social history : Past tobacco abuse, no EtOH intake, disabled Admission Exam Per Admitting Provider GENERAL: Disoriented, looks older than stated age, no respiratory distress SKIN: Pallor, warm HEENT: Pale palpebral conjunctivae, no ptosis, dry buccal mucosa NECK : Supple, no tenderness CHEST : CTA, no tenderness HEART : Tachycardic, no obvious murmurs ABDOMEN: Some distention, nontender EXTREMITIES : No LE swelling/tenderness, no other conspicuous deformities noted NEUROLOGIC : Disoriented, no facial asymmetry, no other gross focality Principal Diagnosis Severe Sepsis Complicated urinary tract Infection Bilateral hydroureteronephrosis Discharge Exam Constitutional: Alert oriented x 3; not in any distress Respiratory: normal respiratory effort, lungs clear to auscultation, no wheeze, rales, rhonchi. Normal insp/exp effort, no accessory muscle use Cardiovascular: RRR, no murmur, no edema Vessels: no JVD or carotid bruit Chest: normal inspection of chest Abdomen: normal bowel sounds, soft, nontender, no hepatosplenomegaly Musculoskeletal: no cyanosis or clubbing, extremities motor strength 5/5 Skin: no rashes, warm and dry normal turgor Neurologic: PERRL, EOMI, accommodation nl, no face palsy, no dysarthria CN's II- XI intact bilaterally and moves all extremities Psychiatric: A+Ox3, euthymic affect Discharge Data Allergies Allergy/AdvReac Type Severity Reaction Status Date / Time adhesive Allergy Intermediate Contact Verified 12/23/23 10:39 dermatitis latex Allergy Mild RASH Verified 12/23/23 10:39 tramadol Allergy Unknown n/v Verified 12/23/23 10:39 Consultations 03/13/24 21:12 ED Decision to Admit Stat 03/13/24 23:18 Consult Urology Routine 03/15/24 13:49 Consult Cardiology Routine Ordered Studies 03/13/24 19:18 CT abd pelvis IV con only Stat CT cervical spine wo con Stat CT chest diagnostic w con Stat CT head/brain wo con Stat Hospital Course (1) Encephalopathy: Plan Pt is a 48yoM with PMHx significant for chronic diastolic heart failure (EF 65- 70%, TTE 2022), CAD status post stent, hypertension, hyperlipidemia, orthostatic hypotension on midodrine, CKD (baseline creatinine 1.4), DMII on oral medications, migraine, chronic anemia (baseline hemoglobin of 10-11), chronic urinary retention, anxiety/mood disorder, past tobacco abuse presented with severe sepsis once more in the setting of a urinary tract infection. Severe Sepsis Complicated urinary tract Infection Bilateral hydroureteronephrosis Patient presents with altered mental status Urine culture grew K. pneumoniae Blood cultures 2 sets with no growth to date CT abdomen pelvis noting bilateral hydroureteronephrosis, possible ureteritis as well as possible cystitis Lactate elevated and down trended after fluid resuscitation Patient reports he does self cath at home. He had urinary catheter placed on admission. Urology recommends to continue it and follow-up as outpatient Patient was treated with IV antibiotic during the hospitalization; changed over to p.o. antibiotic at discharge Patient to follow-up with urology for trial of void in the future. Acute Metabolic/toxic Encephalopathy- Resolved likely due to sepsis/SAMANTHA on CKD and hypernatremia Likely in setting of severe sepsis noted above with UTI Patient also hypernatremic Head CT unremarkable mentation back to baseline at discharge Hypernatremia- resolved Sodium 150 on admission Resolved with D5 administration Florinef likely contributed; on hold at discharge Elevated troponin Demand ischemia Hx of CAD s/p Stent Troponin elevated at 108.8 to 122.8 to 125.1, then downtrended EKG noting sinus tach Likely elevated in setting of above and acute infection Echo shows borderline to mild diffuse LV hypokinesis. EF of 50-55%; EF of 65-70% reported in echo in 12/27; Continue aspirin, Plavix, and Lipitor. Cardiology consulted; recommenced to increased metoprolol to 50mg twice a day. PT OT evaluation was done in the hospitalization. Extensive discussion was done with patient regarding discharge to rehab which should help him gain strength and improve his mobility. However, patient declined to go to rehab. I discussed risks of fall that could include hip fracture, life-threatening bleed but he continued to insist to go home. He was AO X 3; verbalized understanding of the risk associated and assured that he feels back to his baseline. Case management was consulted to arrange for home health at discharge. Please note the above document was generated using voice recognition software. It may contain grammatical, syntax or spelling errors. Any formal questions or concerns about the content, text or information contained within the body of this dictation should be directly addressed to the provider for clarification Total Time Total Time Spent Total Time Spent (In Minutes): 45 Total Time Includes: Examination of the Patient, Discharge Planning, Medication Reconciliation, Communication With Other Providers and Other Discharge Plan Discharge Items Patient Disposition: Home - Self-Care Reason For Visit: SEPSIS Discharge Diagnosis: Urine tract infection Hypernatremia Activity: Resume your previous activity Non-emergency contact: Primary Care Provider Call non-emergency contact if: you have any medication questions and your symptoms worsen Follow-up/Referrals: Ruben Gordillo MD [Primary Care Provider] - (Date & Time 03/21/2024 2:00 PM Provider Ruben Gordillo MD [facility] ) Diet: Regular Addtl Attending Provider Instructions: You were admitted to the hospital due to urinary tract infection and elevated sodium level. You are treated with IV antibiotic during the hospitalization. You are prescribed Augmentin to be taken twice daily for 5 more days to complete the antibiotic course. You were also evaluated by cardiology during the hospitalization due to elevated troponin level. You are prescribed metoprolol 50 mg to be taken twice daily. Florinef has been stopped for now due to elevated sodium level. If your blood pressure drops down while you stand up; consideration can be made to restart it after discussion with your primary care doctor. Pending Studies at Discharge: No Stand-Alone Forms: My [facility] Design A, Smoking Cessation Medications and DC Order Prescriptions: New metoprolol succinate 50 mg Tablet Extended Release 24 Hr 50 mg PO BID Qty: 60 0RF Continued pantoprazole 40 mg Tablet,Delayed Release (Dr/Ec) 40 mg PO QAM gabapentin 300 mg Capsule 300 mg PO TID montelukast 10 mg Tablet 10 mg PO QAM buspirone 10 mg tablet 10 mg PO BID cholecalciferol (vitamin D3) [Vitamin D3] 25 mcg (1,000 unit) capsule 25 mcg PO QDL duloxetine 60 mg capsule,delayed release(DR/EC) 60 mg PO QAM aspirin 81 mg tablet,delayed release (DR/EC) 81 mg PO QAM duloxetine 30 mg capsule,delayed release(DR/EC) 30 mg PO QAM Trulicity 1.5 mg/0.5 mL pen injector 1.5 mg SUBCUT Rx Instructions: take on TUESDAYS bupropion HCl 450 mg tablet extended release 24 hr 450 mg PO QAM clonazepam 0.5 mg tablet 0.5 mg PO BID PRN (Reason: Anxiety) magnesium oxide 400 mg (241.3 mg magnesium) tablet 400 mg PO QAM oxybutynin chloride 10 mg tablet extended release 24hr 10 mg PO QAM atorvastatin 40 mg tablet 40 mg PO QAM clopidogrel 75 mg tablet 75 mg PO DAILYBL ramelteon 8 mg tablet 8 mg PO HS PRN (Reason: Sleep) lidocaine HCl 2 % Jelly In Applicator 0.5 ml EXT BID PRN (Reason: catheter Pain) Qty: 125 0RF sennosides-docusate sodium [Senokot-S] 8.6-50 mg Tablet 1 tab PO QAM Qty: 30 0RF midodrine 5 mg tablet 5 mg PO BID Qty: 30 0RF Rx Instructions: do not give last dose of day after 6PM or within 4 hrs of bedtime thiamine HCl (vitamin B1) 100 mg Tablet 100 mg PO QAM Qty: 30 0RF Advanced Probiotic 625 mg (10 billion cell) Capsule 1 cap PO DAILY Qty: 10 0RF polyethylene glycol 3350 [Miralax] 17 gram Powder In Packet 17 g PO DAILY Qty: 14 0RF nicotine 14 mg/24 hr patch 24 hour 1 patch transdermal DAILY Qty: 14 0RF amoxicillin-pot clavulanate 875-125 mg tablet 1 tab PO BID 5 Days Qty: 10 0RF Discontinued metoprolol succinate 25 mg tablet extended release 24 hr 25 mg PO BID fludrocortisone 0.1 mg Tablet 0.1 mg PO QAM Qty: 30 0RF Discharge Orders: Discharge Order (Routine); Ordered 03/17/24 Ordered By: Duran Soto Admission Data Admit Date/Time: 03/13/24 23:13 Attending Provider: Duran Soto Admit Provider: Yoavnny Lo Primary Care Provider: Ruben Gordillo Other Providers: Yovanny Lo; Brian Beatty; Constance Taylor; Cody Tnag; Haley Gracia Melissa A.; Martín Lin; Connie Pineda; Omi Morrison; Aj Samuel; Mark Macias.; Juan Carlos Velazquez; [facility] Fax; [facility] Other Interventions: Discharge Summary Assessment (RN) Last Done: 03/17/24 12:38
[2024-03-17] MEDS ORDERED: METOPROLOL SUCC 50MG EXT REL TAB PO SCH (21:00)
== END 2024-03-17 12:40 | disposition home or self-care (01) | DRG 871 ==
LOC: ED 19:13 → 2N 23:13 → SUATTDRO 23:13 → 2N 03-14 00:58 → 2S 03-14 11:41

== ENCOUNTER 2024-03-28 17:23 | Inpatient (IN) ==
--- NOTE | 2024-03-28 18:40 | Emergency Department Note ---
Impression & Plan Sepsis, Acute UTI ED Provider Note Diagnosis: Sepsis, UTI Disposition: Admission CHIEF COMPLAINT: Generalized weakness HPI: Patient is a 48-year-old male presenting with complaint of generalized weakness. Patient states it has been worsening over the past couple days time. Patient denies any active chest pain or shortness of breath. Patient denies any abdominal pain nausea vomiting or diarrhea. Patient has a Medrano catheter in place at this time. Patient is tachycardic in the rate of 120 bpm and blood pressure of 95 systolic upon arrival. Patient denies fevers or chills. Patient was recently admitted 2 weeks prior for urinary tract infection and urinary retention. PAST MEDICAL HISTORY: See Below PAST SURGICAL HISTORY: See Below SOCIAL HISTORY: See Below HOME MEDICATIONS: See Below ALLERGIES: See Below VITALS: See Below PHYSICAL EXAMINATION: GENERAL: Well appearing, well nourished, NAD, non-toxic. EYE EXAM: Normal conjunctiva. OROPHARYNX: Moist mucus membranes. Grossly normal dentition. NECK: Supple, LUNGS: Clear to auscultation. Normal chest wall mechanics. HEART: NSR ABDOMEN: Abdomen soft, non-tender, normo-active bowel sounds, no masses, no rebound or guarding BACK: No CVA TTP. SKIN: No rashes and no bruising. UPPER EXTREMITIES: Upper extremities are grossly normal LOWER EXTREMITIES: Grossly normal, no edema. NEURO EXAM: A&O x3,, normal speech, moves all 4 extremities PSYCH: Cooperative MEDICAL DECISION MAKING: History obtained from: Patient ER Course: Patient is a 48-year-old male presenting with complaint of generalized weakness. Patient denies any chest pain or shortness of breath. Patient denies any abdominal pain nausea vomiting or diarrhea. Patient has history of urinary retention and recent admission for UTI. Patient found to be tachycardic upon arrival without a fever. Patient given IV fluids. Patient had lactate and infectious workup ordered. Patient has a white count of 16 and elevated lactate above 2. Due to patient's recent hospitalization broad-spectrum antibiotics were started of cefepime and vancomycin. Patient's urinalysis is positive for infection at this time. Patient will be admitted to the hospital service for further treatment and evaluation. Labs (independently interpreted) are significant for: Elevated white blood cell count, elevated lactate Imaging results (independently interpreted): Chest x-ray without pneumonia EKG interpretation (independently interpreted): Sinus tachycardia no ST segment elevation or depression Medications given: Cefepime, vancomycin, normal saline Consultants: Hospitalist Chronic conditions affecting care: Urinary retention Triage Nursing notes reviewed and agree them. Vital Signs: reviewed and remarkable for: Tachycardic Past Med/Surg History Problem List (Updated 03/28/24 @ 21:02 by Artie Ramos DO) Acute UTI (Acute) Sepsis (Acute) Myocardial strain Encephalopathy Non-ST elevation AK (NSTEMI) (Acute) Elevated lactic acid level (Acute) Acute hypernatremia (Acute) Acute dehydration (Acute) Acute kidney injury superimposed on chronic kidney disease (Acute) Acute UTI (urinary tract infection) (Acute) Sepsis (Acute) Leukocytosis (Acute) AMS (altered mental status) (Acute) Proteinuria due to type 2 diabetes mellitus Sepsis (Acute) Orthostatic hypotension dysautonomic syndrome Gross hematuria Chronic back pain greater than 3 months duration Leukocytosis (Acute) Acute urinary retention (Acute) SAMANTHA (acute kidney injury) (Acute) SAMANTHA (acute kidney injury) Hydronephrosis Urinary retention Lumbar spinal stenosis Metabolic acidosis Hyperglycemia Sinus tachycardia Dehydration (Acute) Nausea vomiting and diarrhea (Acute) Acute hyperglycemia (Acute) Subcapital fracture of left femur Closed left femoral fracture Personal history of diabetic foot ulcer Type 2 diabetes mellitus with diabetic neuropathy, unspecified CAD (coronary artery disease) Mood disorder History of percutaneous coronary intervention S/P cardiac catheterization Bipolar 1 disorder, depressed Systolic congestive heart failure Ischemic cardiomyopathy Hyperlipidemia Hypertension Type 2 diabetes mellitus Medical History Noncompliance Central retinal artery occlusion, left eye Diabetic peripheral neuropathy Surgical History S/P arthroscopic knee surgery History of dental surgery Family History Other Cancer Diabetes Hypertension Social History Smoking Status: Never smoker Tobacco Type: Smokeless Tobacco (Dip or Chew) Second Hand Exposure: No; Do You Dip or Chew Tobacco: Yes; Hx Alcohol Use: Yes Alcohol type: beer Hx Substance Use: Yes Last Used Substance: Days (ago) Last Used Substance Other:: Urine tox came back positive for ecstasy, benzos, and marijuana Preferred Language: Albanian Communication Ability: Effective Integration Software Developer Required: No Beliefs That Will Affect Care: None Current Living Situation: Family Current Living Situation Comment: Lives with parents Feels Safe at Home: Yes Assistive Devices: Cane and Walker Allergies Allergies Allergy/AdvReac Type Severity Reaction Status Date / Time adhesive Allergy Intermediate Contact Verified 12/23/23 10:39 dermatitis latex Allergy Mild RASH Verified 12/23/23 10:39 tramadol Allergy Unknown n/v Verified 12/23/23 10:39 Home Meds Home Medications Medication Instructions Recorded Confirmed gabapentin 300 mg capsule 300 mg PO TID 06/16/22 03/28/24 montelukast 10 mg tablet 10 mg PO QAM 06/16/22 03/28/24 pantoprazole 40 mg tablet,delayed 40 mg PO QAM 06/16/22 03/28/24 release aspirin 81 mg tablet,delayed 81 mg PO QAM 01/31/23 03/28/24 release buspirone 10 mg tablet 10 mg PO BID 01/31/23 03/28/24 cholecalciferol (vitamin D3) 25 25 mcg PO QDL 01/31/23 03/28/24 mcg (1,000 unit) capsule (Vitamin D3) duloxetine 60 mg capsule,delayed 60 mg PO QAM 01/31/23 03/28/24 release atorvastatin 40 mg tablet 40 mg PO QAM 10/19/23 03/28/24 bupropion HCl 450 mg 24 hr tablet, 450 mg PO QAM 10/19/23 03/28/24 extended release clonazepam 0.5 mg tablet 0.5 mg PO BID PRN Anxiety 10/19/23 03/28/24 clopidogrel 75 mg tablet 75 mg PO DAILYBL 10/19/23 03/28/24 dulaglutide 1.5 mg/0.5 mL 1.5 mg subcut TU 10/19/23 03/28/24 subcutaneous pen injector (Trulicity) duloxetine 30 mg capsule,delayed 30 mg PO QAM 10/19/23 03/28/24 release magnesium oxide 400 mg (241.3 mg 400 mg PO QAM 10/19/23 03/28/24 magnesium) tablet oxybutynin chloride 10 mg 10 mg PO QAM 10/19/23 03/28/24 tablet,extended release 24 hr ramelteon 8 mg tablet 8 mg PO HS PRN Sleep 10/19/23 03/28/24 Previous Rx's Medication Instructions Recorded lidocaine HCl 2 % mucosal jelly in 0.5 ml EXT BID PRN catheter Pain 10/26/23 applicator #125 mL L.acidop,casei,lactis,rham-B.lact,ela 1 cap PO DAILY #10 caps 11/15/23 625 mg (10 billion cell) capsule (Advanced Probiotic) midodrine 5 mg tablet 5 mg PO BID #30 tabs 11/15/23 nicotine 14 mg/24 hr daily 1 patch transdermal DAILY #14 ea 11/15/23 transdermal patch polyethylene glycol 3350 17 gram 17 g PO DAILY #14 ea 11/15/23 oral powder packet (Miralax) sennosides 8.6 mg-docusate sodium 1 tab PO QAM #30 tabs 11/15/23 50 mg tablet (Senokot-S) thiamine HCl (vitamin B1) 100 mg 100 mg PO QAM #30 tabs 11/15/23 tablet amoxicillin 875 mg-potassium 1 tab PO BID 5 days #10 tabs 03/17/24 clavulanate 125 mg tablet metoprolol succinate 50 mg 50 mg PO BID #60 tabs 03/17/24 tablet,extended release 24 hr Results & Data (ED) Vital Signs Vital Signs - 24 hr 03/28/24 17:51 03/28/24 17:51 03/28/24 17:57 Temperature 36.8 C Temperature Source Oral Pulse Rate 120 H 119 H Pulse Rate [Apical] Respiratory Rate 26 H Blood Pressure 124/93 Blood Pressure [Right Arm] Blood Pressure Mean 103 Blood Pressure Mean [Right Arm] Pulse Oximetry 98 98 Oxygen Delivery Method Room Air Room Air Oxygen Flow Rate 0 Sepsis New/Unexplained Change in Mental Status N/A Sepsis Action Taken by Nursing Physician Notified 03/28/24 18:19 03/28/24 19:03 Temperature Temperature Source Pulse Rate Pulse Rate [Apical] 126 H Respiratory Rate 18 Blood Pressure Blood Pressure [Right Arm] 101/71 Blood Pressure Mean Blood Pressure Mean [Right Arm] 81 Pulse Oximetry 98 99 Oxygen Delivery Method Room Air Room Air Oxygen Flow Rate Sepsis New/Unexplained Change in Mental Status Sepsis Action Taken by Nursing Laboratory Data 03/28/24 17:49 03/28/24 17:49 Lab Results 03/28/24 03/28/24 03/28/24 Range/Units 17:49 18:54 19:52 WBC 16.97 H (4.8-10.8) K/ul RBC 4.47 L (4.70-6.10) M/uL Hgb 11.5 L (14.0-18.0) g/dl Hct 36.7 L (42.0-52.0) % MCV 82.1 (80.0-100.0) fL MCH 25.7 (25.0-34.0) pg MCHC 31.3 L (32.0-36.0) g/dL RDW Std Deviation 44.3 (36.4-46.3) fL RDW Coeff of Pancho 15.2 H (11.5-14.5) % Plt Count 512 H (130-400) K/uL MPV 11.9 (9.4-12.4) fL Immature Gran % (Auto) 1.2 % Neut % (Auto) 68.7 % Lymph % (Auto) 16.3 % [place] % (Auto) 11.3 % Eos % (Auto) 1.4 % Baso % (Auto) 1.1 % Neut # (Auto) 11.67 H (1.40-6.50) K/uL Lymph # (Auto) 2.77 (1.20-3.40) K/uL [place] # (Auto) 1.91 H (0.11-0.59) K/uL Eos # (Auto) 0.24 (0.00-0.50) K/uL Baso # (Auto) 0.18 (0.00-0.20) K/uL Immature Gran # (Auto) 0.20 (0.01-0.20) K/uL Sodium 133 L (136-145) mmol/L Potassium 5.0 (3.5-5.1) mmol/L Chloride 98 (98-107) mmol/L Carbon Dioxide 26 (21-32) mmol/L Anion Gap 9 (3-11) BUN 27 H (6-23) mg/dl Creatinine 1.24 (0.6-1.4) mg/dl Est Cr Clr Drug Dosing 80.8 ml/min eGFR 72.17 BUN/Creatinine Ratio 21.8 H (10-20) Glucose 220 H (70-99(Fasting)) mg/dl Lactate 2.4 H* (0.4-2.0) mmol/L Calcium 9.6 (8.6-10.3) mg/dl Total Bilirubin 0.7 (0.2-1.0) mg/dl AST 95 H (13-39) U/L ALT 99 H (7-52) U/L Alkaline Phosphatase 113 H (34-104) U/L Troponin I High Sens 28.8 H 32.8 H (0-20) pg/ml B-Natriuretic Peptide 286 H (0-100) pg/ml Total Protein 7.5 (6.0-8.3) gm/dl Albumin 3.6 (3.4-5.0) gm/dl Globulin 3.9 (2.5-4.0) gm/dl Albumin/Globulin Ratio 0.9 (0.9-2) TSH 3.966 (0.300-4.500) uIu/ml Urine Color Urine Appearance (Clear) Urine pH (4.5-7.5) Ur Specific [place] (1.000-1.030) Urine Protein (Negative) Urine Glucose (UA) (Negative) Urine Ketones (Negative) Urine Blood (Negative) Urine Nitrite (Negative) Urine Bilirubin (Negative) Urine Urobilinogen (Negative) Ur Leukocyte Esterase (Negative) Urine WBC (Auto) (0-5) /hpf Urine RBC (Auto) (0-2) /hpf U Hyaline Cast (Auto) (0-2) /lpf U Epithel Cells (Auto) (0-2) /hpf Urine Bacteria (Auto) (None Seen) Urine Yeast (None Prsent) 03/28/24 Range/Units 20:04 WBC (4.8-10.8) K/ul RBC (4.70-6.10) M/uL Hgb (14.0-18.0) g/dl Hct (42.0-52.0) % MCV (80.0-100.0) fL MCH (25.0-34.0) pg MCHC (32.0-36.0) g/dL RDW Std Deviation (36.4-46.3) fL RDW Coeff of Pancho (11.5-14.5) % Plt Count (130-400) K/uL MPV (9.4-12.4) fL Immature Gran % (Auto) % Neut % (Auto) % Lymph % (Auto) % [place] % (Auto) % Eos % (Auto) % Baso % (Auto) % Neut # (Auto) (1.40-6.50) K/uL Lymph # (Auto) (1.20-3.40) K/uL [place] # (Auto) (0.11-0.59) K/uL Eos # (Auto) (0.00-0.50) K/uL Baso # (Auto) (0.00-0.20) K/uL Immature Gran # (Auto) (0.01-0.20) K/uL Sodium (136-145) mmol/L Potassium (3.5-5.1) mmol/L Chloride (98-107) mmol/L Carbon Dioxide (21-32) mmol/L Anion Gap (3-11) BUN (6-23) mg/dl Creatinine (0.6-1.4) mg/dl Est Cr Clr Drug Dosing ml/min eGFR BUN/Creatinine Ratio (10-20) Glucose (70-99(Fasting)) mg/dl Lactate (0.4-2.0) mmol/L Calcium (8.6-10.3) mg/dl Total Bilirubin (0.2-1.0) mg/dl AST (13-39) U/L ALT (7-52) U/L Alkaline Phosphatase (34-104) U/L Troponin I High Sens (0-20) pg/ml B-Natriuretic Peptide (0-100) pg/ml Total Protein (6.0-8.3) gm/dl Albumin (3.4-5.0) gm/dl Globulin (2.5-4.0) gm/dl Albumin/Globulin Ratio (0.9-2) TSH (0.300-4.500) uIu/ml Urine Color Dark Yellow Urine Appearance Cloudy A (Clear) Urine pH 5.5 (4.5-7.5) Ur Specific [place] 1.027 (1.000-1.030) Urine Protein Trace H (Negative) Urine Glucose (UA) 3+ H (Negative) Urine Ketones Negative (Negative) Urine Blood Negative (Negative) Urine Nitrite Positive A (Negative) Urine Bilirubin Negative (Negative) Urine Urobilinogen Negative (Negative) Ur Leukocyte Esterase 1+ H (Negative) Urine WBC (Auto) >50 H (0-5) /hpf Urine RBC (Auto) 0-2 (0-2) /hpf U Hyaline Cast (Auto) 6-10 H (0-2) /lpf U Epithel Cells (Auto) 0-2 (0-2) /hpf Urine Bacteria (Auto) 3+ H (None Seen) Urine Yeast Present A (None Prsent) Administered Medications Vancomycin HCl 1,750 mg/ (Sodium Chloride) 535 mls @ 200 mls/hr IV NOW ONE Stop: 03/28/24 22:02 Last Admin: 03/28/24 19:53 Dose: 200 mls/hr Documented By: RONNIE Sodium Chloride (Nss) 1,000 mls @ 200 mls/hr IV .Q5H ONE Stop: 03/29/24 01:47 Last Admin: 03/28/24 20:59 Dose: 200 mls/hr Documented By: RONNIE Discontinued Medications Sodium Chloride (Nss) 1,000 mls @ 999 mls/hr IV .Q1H1M ONE Stop: 03/28/24 19:19 Last Admin: 03/28/24 18:52 Dose: 999 mls/hr Documented By: OVIDIO Cefepime HCl (Maxipime 2000mg) 2,000 mg in 20 mls @ 5 mls/min IV NOW STA; Protocol Stop: 03/28/24 19:25 Last Admin: 03/28/24 19:53 Dose: 5 mls/min Documented By: RONNIE Imaging Data Radiologist's Impression: Chest X-Ray 03/28/24 18:19 XR chest 1V portable HISTORY: 48 years-old Male weakness acute weakness COMPARISON: 03/13/[address] TECHNIQUE: AP view of the chest FINDINGS: Cardiomediastinal and hilar silhouettes are within normal limits. No pneumothorax, pleural effusion or airspace consolidation. Bones appear grossly intact. IMPRESSION: No acute process. ACT 112: Negative or not required by law. The above report was generated using voice recognition software. It may contain grammatical, syntax or spelling errors. Electronically signed by: Franklin Polanco M.D. 03/28/2024 7:01 PM Discharge Plan Visit Data Chief Complaint: Weakness Stated Complaint: WEAKNESS ED Provider: Artie Ramos Discharge Problem: Sepsis, Acute UTI Forms Stand Alone Forms: MUJIN Prescriptions Prescriptions: No Action pantoprazole 40 mg Tablet,Delayed Release (Dr/Ec) 40 mg PO QAM gabapentin 300 mg Capsule 300 mg PO TID montelukast 10 mg Tablet 10 mg PO QAM buspirone 10 mg tablet 10 mg PO BID cholecalciferol (vitamin D3) [Vitamin D3] 25 mcg (1,000 unit) capsule 25 mcg PO QDL duloxetine 60 mg capsule,delayed release(DR/EC) 60 mg PO QAM aspirin 81 mg tablet,delayed release (DR/EC) 81 mg PO QAM duloxetine 30 mg capsule,delayed release(DR/EC) 30 mg PO QAM Trulicity 1.5 mg/0.5 mL pen injector 1.5 mg SUBCUT Rx Instructions: take on TUESDAYS bupropion HCl 450 mg tablet extended release 24 hr 450 mg PO QAM clonazepam 0.5 mg tablet 0.5 mg PO BID PRN (Reason: Anxiety) magnesium oxide 400 mg (241.3 mg magnesium) tablet 400 mg PO QAM oxybutynin chloride 10 mg tablet extended release 24hr 10 mg PO QAM atorvastatin 40 mg tablet 40 mg PO QAM clopidogrel 75 mg tablet 75 mg PO DAILYBL ramelteon 8 mg tablet 8 mg PO HS PRN (Reason: Sleep) lidocaine HCl 2 % Jelly In Applicator 0.5 ml EXT BID PRN (Reason: catheter Pain) Qty: 125 0RF sennosides-docusate sodium [Senokot-S] 8.6-50 mg Tablet 1 tab PO QAM Qty: 30 0RF midodrine 5 mg tablet 5 mg PO BID Qty: 30 0RF Rx Instructions: do not give last dose of day after 6PM or within 4 hrs of bedtime thiamine HCl (vitamin B1) 100 mg Tablet 100 mg PO QAM Qty: 30 0RF Advanced Probiotic 625 mg (10 billion cell) Capsule 1 cap PO DAILY Qty: 10 0RF polyethylene glycol 3350 [Miralax] 17 gram Powder In Packet 17 g PO DAILY Qty: 14 0RF nicotine 14 mg/24 hr patch 24 hour 1 patch transdermal DAILY Qty: 14 0RF metoprolol succinate 50 mg Tablet Extended Release 24 Hr 50 mg PO BID Qty: 60 0RF amoxicillin-pot clavulanate 875-125 mg tablet 1 tab PO BID 5 Days Qty: 10 0RF Referrals Referrals: Ruben Gordillo MD [Primary Care Provider] -
[2024-03-28 18:43] LABS: Basophils # (auto) 0.18 K/uL (0.00-0.20); Basophils % (auto) 1.1 %; Eosinophils # (auto) 0.24 K/uL (0.00-0.50); Eosinophils % (auto) 1.4 %; Hematocrit (blood only) 36.7 % (42.0-52.0); Hemoglobin 11.5 g/dl (14.0-18.0); Immature Granulocytes % (auto) 1.2 %; Lymphocytes # (auto) 2.77 K/uL (1.20-3.40); Lymphocytes % (auto) 16.3 %; Mean Corpuscular Hemoglobin 25.7 pg (25.0-34.0); Mean Corpuscular Hgb Conc 31.3 g/dL (32.0-36.0); Mean Corpuscular Volume 82.1 fL (80.0-100.0); Mean Platelet Volume 11.9 fL (9.4-12.4); Monocytes # (auto) 1.91 K/uL (0.11-0.59); Monocytes % (auto) 11.3 %; Neutrophils # (auto) 11.67 K/uL (1.40-6.50); Neutrophils % (auto) 68.7 %; Platelet Count 512 K/uL (130-400); RDW Coefficient of Variation 15.2 % (11.5-14.5); RDW Standard Deviation 44.3 fL (36.4-46.3); Red Blood Count 4.47 M/uL (4.70-6.10); White Blood Count 16.97 K/ul (4.8-10.8)
[2024-03-28] MEDS: SODIUM CHLORIDE 0.9% 1,000 ML IV ONE ×2 (18:52→20:59)
[2024-03-28 18:58] LABS: Albumin Globulin Ratio 0.9 (0.9-2); Albumin Level 3.6 gm/dl (3.4-5.0); BUN Creatinine Ratio 21.8 (10-20); Bilirubin,Total 0.7 mg/dl (0.2-1.0); Calcium 9.6 mg/dl (8.6-10.3); Creatinine Clr Calc Pharmacy 80.8 ml/min; Globulin 3.9 gm/dl (2.5-4.0); Total Protein 7.5 gm/dl (6.0-8.3)
--- NOTE | 2024-03-28 19:02 | XRay Report ---
XR chest 1V portable HISTORY: 48 years-old Male weakness acute weakness COMPARISON: 03/13/[address] TECHNIQUE: AP view of the chest FINDINGS: Cardiomediastinal and hilar silhouettes are within normal limits. No pneumothorax, pleural effusion o r airspace consolidation. Bones appear grossly intact. IMPRESSION: No acute process. ACT 112: Negative or not required by law. The above report was generated using voice recognition software. It may contain grammatical, syntax o r spelling errors. Electronically signed by: Franklin Polanco M.D. 03/28/2024 7:01 PM
[2024-03-28 19:03] LABS: Troponin I High Sensitivity 28.8 pg/ml (0-20)
[2024-03-28 19:13] LABS: Thyroid Stimulating Hormone 3.966 uIu/ml (0.300-4.500)
[2024-03-28] MEDS ORDERED: VANCOMYCIN CONSULT ACTIVE PRN (19:22)
[2024-03-28] MEDS: VANCOMYCIN HCL 1,750 MG in SODIUM CHLORIDE 0.9% 500 ML IV ONE (19:53)
[2024-03-28] MEDS: CEFEPIME 2000MG 2,000 MG/20 ML SYR IV STA (19:53)
[2024-03-28 20:24] LABS: Appearance Urine Cloudy (Clear); Bacteria Urine Automated 3+ (None Seen); Bilirubin Urine Negative (Negative); Blood Urine Negative (Negative); Color Urine Dark Yellow; Epithelial Cell Urine Auto 0-2 /hpf (0-2); Glucose Urine UA 3+ (Negative); Ketones Urine Negative (Negative); Leukocyte Esterase Urine 1+ (Negative); Nitrite Urine Positive (Negative); Protein Urine Trace (Negative); Specific Gravity Urine 1.027 (1.000-1.030); Urobilinogen Urine Negative (Negative); WBC Urine Automated >50 /hpf (0-5); pH Urine 5.5 (4.5-7.5)
[2024-03-28 20:25] LABS: RBC Urine Automated 0-2 /hpf (0-2)
--- NOTE | 2024-03-28 21:19 | History & Physical Report ---
Date of Service March 28, 2024 Assessment & Plan (1) Severe sepsis: Plan: SIRS plus lactic acidosis Secondary to recurrent UTI History bilateral hydroureteronephrosis with indwelling Medrano catheter chronic diastolic heart failure (EF 50-55%, TTE 2023), patient with dry side hx CAD status post stent hypertension, stable, patient on midodrine for orthostatic hypotension CRI, creatinine better than baseline DM2 on oral medications, suboptimal control as of recent hemoglobin A1c of 7.9 last October 2023 chronic anemia, hemoglobin at baseline anxiety/mood disorder, at baseline Functional disability/medical noncompliance past tobacco abuse Admit to medical telemetry CS, cefepime Monitor lactic acid response to IVF Basal bolus insulin adjusted for clear liquid diet, ISS BG goal 1 10-1 40, carb count coverage PT OT eval once medically stable DVT prophylaxis with Lovenox subcu Full code Patient mother requesting updates providers. Ms. Prerna Moctezuma, contact numbers [phone]. Text document was generated using [employer] voice recognition software. It may contain grammatical or spelling errors. Kindly contact undersigned for clarification of any documentation item in question. History of Present Illness Chief Complaint: Weakness Primary Care Provider: Ruben Gordillo MD History obtained from patient and records. Medical history significant for chronic diastolic heart failure (EF 50-55%, TTE 2023), CAD status post stent, hypertension, hyperlipidemia, orthostatic hypotension on midodrine, CRI (baseline creatinine 1.4), DM2 on oral medications, migraine, chronic anemia (baseline hemoglobin of 10-11), chronic urinary retention with indwelling Medrano catheter, anxiety/mood disorder, past tobacco abuse. Recent confinement 2 weeks ago for severe sepsis secondary to complicated UTI secondary to bilateral hydroureteronephrosis. Urine cultures grew Klebsiella. Urology recommended indwelling Medrano catheter on discharge. Patient seen by cardiology during confinement for troponin elevation. Patient declined rehab recommendation. Patient has not seen PCP since discharge to home. A week after returning home, patient started feeling weak and sick again could not get out of bed. Denies chest pain, SOB, abdominal pain. EMS called to patient's home. Vancomycin and cefepime administered at the ER. Medical History as above Surgical History : Dental surgery, knee surgery, vascular procedure Family History : Prostate cancer, DM, hypertension Personal/Social history : Past tobacco abuse, no EtOH intake, disabled Allergies Allergy/AdvReac Type Severity Reaction Status Date / Time adhesive Allergy Intermediate Contact Verified 12/23/23 10:39 dermatitis latex Allergy Mild RASH Verified 12/23/23 10:39 tramadol Allergy Unknown n/v Verified 12/23/23 10:39 Home Medications Medication Instructions Recorded Confirmed Type gabapentin 300 mg capsule 300 mg PO TID 06/16/22 03/28/24 History montelukast 10 mg tablet 10 mg PO QAM 06/16/22 03/28/24 History pantoprazole 40 mg tablet,delayed 40 mg PO QAM 06/16/22 03/28/24 History release aspirin 81 mg tablet,delayed 81 mg PO QAM 01/31/23 03/28/24 History release buspirone 10 mg tablet 10 mg PO BID 01/31/23 03/28/24 History cholecalciferol (vitamin D3) 25 25 mcg PO QDL 01/31/23 03/28/24 History mcg (1,000 unit) capsule (Vitamin D3) duloxetine 60 mg capsule,delayed 60 mg PO QAM 01/31/23 03/28/24 History release atorvastatin 40 mg tablet 40 mg PO QAM 10/19/23 03/28/24 History bupropion HCl 450 mg 24 hr tablet, 450 mg PO QAM 10/19/23 03/28/24 History extended release clonazepam 0.5 mg tablet 0.5 mg PO BID PRN Anxiety 10/19/23 03/28/24 History clopidogrel 75 mg tablet 75 mg PO DAILYBL 10/19/23 03/28/24 History dulaglutide 1.5 mg/0.5 mL 1.5 mg subcut TU 10/19/23 03/28/24 History subcutaneous pen injector (Trulicity) duloxetine 30 mg capsule,delayed 30 mg PO QAM 10/19/23 03/28/24 History release magnesium oxide 400 mg (241.3 mg 400 mg PO QAM 10/19/23 03/28/24 History magnesium) tablet oxybutynin chloride 10 mg 10 mg PO QAM 10/19/23 03/28/24 History tablet,extended release 24 hr ramelteon 8 mg tablet 8 mg PO HS PRN Sleep 10/19/23 03/28/24 History lidocaine HCl 2 % mucosal jelly in 0.5 ml EXT BID PRN catheter Pain 10/26/23 03/28/24 Rx applicator #125 mL L.acidop,casei,lactis,rham-B.lact,ela 1 cap PO DAILY #10 caps 11/15/23 03/28/24 Rx 625 mg (10 billion cell) capsule (Advanced Probiotic) midodrine 5 mg tablet 5 mg PO BID #30 tabs 11/15/23 03/28/24 Rx nicotine 14 mg/24 hr daily 1 patch transdermal DAILY #14 ea 11/15/23 03/28/24 Rx transdermal patch polyethylene glycol 3350 17 gram 17 g PO DAILY #14 ea 11/15/23 03/28/24 Rx oral powder packet (Miralax) sennosides 8.6 mg-docusate sodium 1 tab PO QAM #30 tabs 11/15/23 03/28/24 Rx 50 mg tablet (Senokot-S) thiamine HCl (vitamin B1) 100 mg 100 mg PO QAM #30 tabs 11/15/23 03/28/24 Rx tablet amoxicillin 875 mg-potassium 1 tab PO BID 5 days #10 tabs 03/17/24 03/28/24 Rx clavulanate 125 mg tablet metoprolol succinate 50 mg 50 mg PO BID #60 tabs 03/17/24 03/28/24 Rx tablet,extended release 24 hr Past Med/Surg History Problem List (Updated 03/29/24 @ 09:38 by Yovanny Lo MD) Severe sepsis Acute UTI (Acute) Sepsis (Acute) Myocardial strain Encephalopathy Non-ST elevation CA (NSTEMI) (Acute) Elevated lactic acid level (Acute) Acute hypernatremia (Acute) Acute dehydration (Acute) Acute kidney injury superimposed on chronic kidney disease (Acute) Acute UTI (urinary tract infection) (Acute) Sepsis (Acute) Leukocytosis (Acute) AMS (altered mental status) (Acute) Proteinuria due to type 2 diabetes mellitus Sepsis (Acute) Orthostatic hypotension dysautonomic syndrome Gross hematuria Chronic back pain greater than 3 months duration Leukocytosis (Acute) Acute urinary retention (Acute) SAMANTHA (acute kidney injury) (Acute) SAMANTHA (acute kidney injury) Hydronephrosis Urinary retention Lumbar spinal stenosis Metabolic acidosis Hyperglycemia Sinus tachycardia Dehydration (Acute) Nausea vomiting and diarrhea (Acute) Acute hyperglycemia (Acute) Subcapital fracture of left femur Closed left femoral fracture Personal history of diabetic foot ulcer Type 2 diabetes mellitus with diabetic neuropathy, unspecified CAD (coronary artery disease) Mood disorder History of percutaneous coronary intervention S/P cardiac catheterization Bipolar 1 disorder, depressed Systolic congestive heart failure Ischemic cardiomyopathy Hyperlipidemia Hypertension Type 2 diabetes mellitus Medical History Noncompliance Central retinal artery occlusion, left eye Diabetic peripheral neuropathy Surgical History S/P arthroscopic knee surgery History of dental surgery Family History Other Cancer Diabetes Hypertension Social History Smoking Status: Never smoker Tobacco Type: Smokeless Tobacco (Dip or Chew) Second Hand Exposure: No; Do You Dip or Chew Tobacco: Yes; Hx Alcohol Use: Yes Alcohol type: beer Hx Substance Use: Yes Last Used Substance: Days (ago) Last Used Substance Other:: Urine tox came back positive for ecstasy, benzos, and marijuana Preferred Language: Prydeinig Communication Ability: Effective Cloth Printer Helper Required: No Beliefs That Will Affect Care: None Current Living Situation: Family Current Living Situation Comment: with parents Other Information That Helps Us Care for You: No Feels Safe at Home: Yes Safety Concerns: Feels Safe At This Time Assistive Devices: Cane and Walker Review of Systems Review of Systems: As per HPI, all other systems reviewed and negative Physical Exam Physical Exam: GENERAL: wane, apathetic, looks older than stated age, no respiratory distress SKIN: Pallor, warm HEENT: Pale palpebral conjunctivae, no ptosis, dry buccal mucosa NECK : Supple, no tenderness CHEST : CTA, no tenderness HEART : Tachycardic, no obvious murmurs ABDOMEN: Some distention, nontender EXTREMITIES : No LE swelling/tenderness, no other conspicuous deformities noted NEUROLOGIC : Oriented, no facial asymmetry, no other gross focality Results & Data Results & Data Vital Signs (Past 12 Hours) Vital Signs Temp Pulse Pulse Resp BP BP Pulse Ox 03/28/24 19:03 126 H 18 101/71 99 03/28/24 18:19 98 03/28/24 17:57 98 03/28/24 17:51 119 H 03/28/24 17:51 36.8 C 120 H 26 H 124/93 98 O2 Del Method O2 Flow Rate 03/28/24 19:03 Room Air 03/28/24 18:19 Room Air 03/28/24 17:57 Room Air 0 03/28/24 17:51 03/28/24 17:51 Room Air Laboratory Results Laboratory Results WBC 16.97 K/ul (4.8-10.8) H 03/28/24 17:49 RBC 4.47 M/uL (4.70-6.10) L 03/28/24 17:49 Hgb 11.5 g/dl (14.0-18.0) L 03/28/24 17:49 Hct 36.7 % (42.0-52.0) L 03/28/24 17:49 MCV 82.1 fL (80.0-100.0) 03/28/24 17:49 MCH 25.7 pg (25.0-34.0) 03/28/24 17:49 MCHC 31.3 g/dL (32.0-36.0) L 03/28/24 17:49 RDW Std Deviation 44.3 fL (36.4-46.3) 03/28/24 17:49 RDW Coeff of Pancho 15.2 % (11.5-14.5) H 03/28/24 17:49 Plt Count 512 K/uL (130-400) H 03/28/24 17:49 MPV 11.9 fL (9.4-12.4) 03/28/24 17:49 Immature Gran % (Auto) 1.2 % 03/28/24 17:49 Neut % (Auto) 68.7 % 03/28/24 17:49 Lymph % (Auto) 16.3 % 03/28/24 17:49 [place] % (Auto) 11.3 % 03/28/24 17:49 Eos % (Auto) 1.4 % 03/28/24 17:49 Baso % (Auto) 1.1 % 03/28/24 17:49 Neut # (Auto) 11.67 K/uL (1.40-6.50) H 03/28/24 17:49 Lymph # (Auto) 2.77 K/uL (1.20-3.40) 03/28/24 17:49 [place] # (Auto) 1.91 K/uL (0.11-0.59) H 03/28/24 17:49 Eos # (Auto) 0.24 K/uL (0.00-0.50) 03/28/24 17:49 Baso # (Auto) 0.18 K/uL (0.00-0.20) 03/28/24 17:49 Immature Gran # (Auto) 0.20 K/uL (0.01-0.20) 03/28/24 17:49 Sodium 133 mmol/L (136-145) L 03/28/24 17:49 Potassium 5.0 mmol/L (3.5-5.1) 03/28/24 17:49 Chloride 98 mmol/L (98-107) 03/28/24 17:49 Carbon Dioxide 26 mmol/L (21-32) 03/28/24 17:49 Anion Gap 9 (3-11) 03/28/24 17:49 BUN 27 mg/dl (6-23) H 03/28/24 17:49 Creatinine 1.24 mg/dl (0.6-1.4) 03/28/24 17:49 Est Cr Clr Drug Dosing 80.8 ml/min 03/28/24 17:49 eGFR 72.17 03/28/24 17:49 BUN/Creatinine Ratio 21.8 (10-20) H 03/28/24 17:49 Glucose 220 mg/dl (70-99(Fasting)) H 03/28/24 17:49 Lactate 2.4 mmol/L (0.4-2.0) H* 03/28/24 18:54 Calcium 9.6 mg/dl (8.6-10.3) 03/28/24 17:49 Total Bilirubin 0.7 mg/dl (0.2-1.0) 03/28/24 17:49 AST 95 U/L (13-39) H 03/28/24 17:49 ALT 99 U/L (7-52) H 03/28/24 17:49 Alkaline Phosphatase 113 U/L (34-104) H 03/28/24 17:49 Troponin I High Sens 32.8 pg/ml (0-20) H 03/28/24 19:52 B-Natriuretic Peptide 286 pg/ml (0-100) H 03/28/24 17:49 Total Protein 7.5 gm/dl (6.0-8.3) 03/28/24 17:49 Albumin 3.6 gm/dl (3.4-5.0) 03/28/24 17:49 Globulin 3.9 gm/dl (2.5-4.0) 03/28/24 17:49 Albumin/Globulin Ratio 0.9 (0.9-2) 03/28/24 17:49 TSH 3.966 uIu/ml (0.300-4.500) 03/28/24 17:49 Urine Color Dark Yellow 03/28/24 20:04 Urine Appearance Cloudy (Clear) A 03/28/24 20:04 Urine pH 5.5 (4.5-7.5) 03/28/24 20:04 Ur Specific [place] 1.027 (1.000-1.030) 03/28/24 20:04 Urine Protein Trace (Negative) H 03/28/24 20:04 Urine Glucose (UA) 3+ (Negative) H 03/28/24 20:04 Urine Ketones Negative (Negative) 03/28/24 20:04 Urine Blood Negative (Negative) 03/28/24 20:04 Urine Nitrite Positive (Negative) A 03/28/24 20: Urine Bilirubin Negative (Negative) 03/28/24 20: Urine Urobilinogen Negative (Negative) 03/28/24 20:04 Ur Leukocyte Esterase 1+ (Negative) H 03/28/24 20:04 Urine WBC (Auto) >50 /hpf (0-5) H 03/28/24 20:04 Urine RBC (Auto) 0-2 /hpf (0-2) 03/28/24 20:04 U Hyaline Cast (Auto) 6-10 /lpf (0-2) H 03/28/24 20:04 U Epithel Cells (Auto) 0-2 /hpf (0-2) 03/28/24 20:04 Urine Bacteria (Auto) 3+ (None Seen) H 03/28/24 20:04 Urine Yeast Present (None Prsent) A 03/28/24 20:04 Impressions Chest X-Ray 03/28/24 18:19 XR chest 1V portable HISTORY: 48 years-old Male weakness acute weakness COMPARISON: 03/13/[address] TECHNIQUE: AP view of the chest FINDINGS: Cardiomediastinal and hilar silhouettes are within normal limits. No pneumothorax, pleural effusion or airspace consolidation. Bones appear grossly intact. IMPRESSION: No acute process. ACT 112: Negative or not required by law. The above report was generated using voice recognition software. It may contain grammatical, syntax or spelling errors. Electronically signed by: Franklin Polanco M.D. 03/28/2024 7:01 PM Diagnostic Findings EKG as per my interpretation :Rate 120, sinus tachycardia, normal axis, T wave inversion lateral leads
[2024-03-28] MEDS ORDERED: PROMETHAZINE 6.25 MG/50.25 ML BAG IV PRN (21:24)
[2024-03-28] MEDS: MIDODRINE HCL 2.5 MG TAB PO STA (21:52)
[2024-03-28 21:53] LABS: Magnesium 1.7 mg/dl (1.7-2.4)
[2024-03-28 22:16] LABS: Prothrombin Time 10.7 Seconds (9.0-12.0)
[2024-03-28] MEDS ORDERED: DEXTROSE 50% 50 ML SYRINGE IV PRN (23:03)
[2024-03-28] MEDS ORDERED: GLUCOSE 40% GEL 15 GM TUBE PO PRN (23:03)
[2024-03-28] MEDS ORDERED: GLUCAGON FOR INJ 1 MG VIAL SQ PRN (23:03)
[2024-03-28] MEDS ORDERED: GLUCOSE 10 TAB/TUBE PO PRN (23:03)
[2024-03-28] MEDS ORDERED: CARBOHYDRATES FOR HYPOGLYCEMIA PO PRN (23:03)
[2024-03-28] MEDS: INSULIN ASPART PER UNIT CHARGE SC SCH (23:57)
[2024-03-29] MEDS: MICONAZOLE NITRATE POWDER 85 GM EXT SCH (00:01)
[2024-03-29] MEDS: SODIUM CHLORIDE 0.9% 1,000 ML IV ONE (01:14)
[2024-03-29] MEDS: MAGNESIUM SULFATE / D5W 1 GM/100 ML BAG IV SCH (01:15)
[2024-03-29] MEDS: CEFEPIME 2000MG 2,000 MG/20 ML SYR IV SCH (04:11)
--- NOTE | 2024-03-29 06:13 | Electrocardiogram Report ---
Test Reason : Blood Pressure : */* mmHG Vent. Rate : 119 BPM Atrial Rate : 119 BPM P-R Int : 140 ms QRS Dur : 82 ms QT Int : 318 ms P-R-T Axes : 44 9 114 degrees QTcB Int : 447 ms Sinus tachycardia Abnormal ECG When compared with ECG of 16-Mar-2024 04:53, T wave inversion less evident in Anterolateral leads Confirmed by Erwin Boggs ([id number]) on 03/29/2024 6:12:58 AM Referred By: REFERRED SELF Confirmed By: Erwin Boggs
--- OUTSIDE RECORDS SUMMARY | 2024-03-29 06:56 | External Medical Summary | Summary of Care ---
Author Name Unknown Organization [facility] Address [address] [place] [address] Phone [phone] Care Team Providers Care Sample Taker Operator Name Role Phone Ruben Gordillo MD Primary Care Provider Reason for Visit * Reason Onset Date Comments Appointment 03/23/2024 Encounter Details Date Type Department Care Team (Late st Contact Info) Description 03/23/2024 Telephone Cardiology, [facility] [address] [place] [address] Juan Carlos Velazquez, [address] [place] [address] Appointment Allergies Active Allergy Reactions Criticality Noted Date Comments Adhesive Tape 02/09/2023 Latex Rash 02/05/2022 Tramadol Nausea/vomiting 12/02/2014 documented as of this encounter (statuses as of 03/27/2024) Medications Medication Sig Dispensed Refills Start Date End Date Status GLUCOMETER ELITE CLASSIC KITIndications:DM type 2, not at goal (HCC) check blood sugar every morning when you get up 1 Kit 3 07/31/2011 Active FreeStyle Sadiq 14 Day [place] Device Use as directed . 1 Each 1 02/13/2022 Active FreeStyle Sadiq 14 Day Sensor Use as directed . 1 Each 11 02/13/2022 Active Nystatin 922190 UNIT/GM External Cream Apply 1 g topically [...] the morning. 30 Tablet 5 12/07/2023 Active DULoxetine HCl 30 MG Oral Capsule [...] before bedtime. 60 Tablet 2 03/09/2024 Active clonazePAM 0.5 MG Oral Tablet (KlonoPIN) TAKE ONE TABLET BY MOUTH TWICE DAILY NEEDED FOR ANXIETY 60 Tablet 1 03/21/2024 Active documented as of this encounter (statuses as of 03/27/2024) Active Problems Problem Noted Date Diagnosed Date Panic disorder 03/09/2024 Major depressive disorder, recurrent episode, mo derate 03/09/2024 History of hip surgery 02/09/2023 Non healing left heel wound 11/10/2022 S/P angioplasty with stent 06/23/2022 Coronary artery disease of n ative artery of [place] heart with stable angina pectoris 06/23/2022 Ischemic [...] as of this encounter (statuses as of 03/27/2024) Resolved Problems Problem Noted Date Diagnosed Date [...] as of this encounter (statuses as of 03/27/2024) Immunizations Name Administration Dates Next Due Hepatitis [...] encounter Miscellaneous Notes * Telephone Encounter - Sabine Kelley OSA - 03/27/2024 2:41 PM EDT 03/27/24 VM FULL UNABLE TO LMOM FOR PT TO CALL BACK TO SCHEDULE, LETTER SENT KF * Telephone Encounter - Sabine Kelley OSA - 03/24/2024 2:35 PM EDT 03/24/24 VM FULL UNABLE TO LMOM FOR PT TO CALL BACK TO SCHEDULE, MYG SENT KF * Telephone Encounter - Quinton Post OSA - 03/23/2024 8:52 AM EDT Patient is ordered a cardiac study, please assist patient to schedule, thank you. NM MYOCARD PERF IMG SPECT MULT STUDIES WITH PHARM INTERV [98461.02] (Order [id number]) Per Providers notes, he is requesting the testing to be done: few weeks when Dr Velazquez is image provider. Dr. Velazquez is on Image Week the First Week of April, 04/10 to 04/14. Thank you. documented in this encounter Plan of Treatment Upcoming Encounters Date Type Department Care Team (Late st Contact Info) Description 04/04/2024 1:30 PM EDT Office Visit Orthopaedics Spine Surgery, [facility] [address] [place] [address] Enoch Garrison MD [address] [place] [address] 04/13/2024 2:15 PM EST Office Visit Interventional Pain Center, [facility] [address] [facility] [place] [address] Lee Torres, DO [address] [place] [phone] 05/03/2024 1:00 PM EST PulmDiagnostic Sleep Lab [facility] [address] [facility] [place] [address] [facility] Sleep Med Home Study [address] [place] [address] 05/05/2024 9:30 AM EST Telemedicine Psychiatry [facility] [place] [address] [place] [address] Mauri Macias, DO [address] [place] [address] 06/05/2024 1:00 PM EST Office Visit [facility] [address] [place] [address] Ruben Gordillo MD [address] [place] [address] 06/13/2024 3:40 PM EST Office Visit Neurology [facility] [place] [address] [place], [place] [address] Ernie Asif, DO [address] [place] [address] Health Maintenance Due Date Last Done Comments [...] filedocumented as of this encounter Care Teams Sample Taker Operator Relationship Specialty Start Date End Date Ruben Gordillo MD [address] [place] [address] PCP - General Internal Medicine 02/05/22 documented as of this encounter
--- OUTSIDE RECORDS SUMMARY | 2024-03-29 06:56 | External Medical Summary | Summary of Care ---
Author Name Unknown Organization [facility] Address [address] [place] [address] Phone [phone] Care Team Providers Care Professional Engineer Name Role Phone Ruben Gordillo MD Primary Care Provider [phone] Reason for Visit * Reason Onset Date Comments Appointment 03/23/2024 Encounter Details Date Type Department Care Team (Late st Contact Info) Description 03/23/2024 Telephone Cardiology, [facility] [address] [place] [address] Juan Carlos Velazquez, [address] [place] [address] Appointment Allergies Active Allergy Reactions Criticality Noted Date Comments Adhesive Tape 02/09/2023 Latex Rash 02/05/2022 Tramadol Nausea/vomiting 12/02/2014 documented as of this encounter (statuses as of 03/24/2024) Medications Medication Sig Dispensed Refills Start Date End Date Status GLUCOMETER ELITE CLASSIC KITIndications:DM type 2, not at goal (HCC) check blood sugar every morning when you get up 1 Kit 3 07/31/2011 Active FreeStyle Sadiq 14 Day [place] Device Use as directed . 1 Each 1 02/13/2022 Active FreeStyle Sadiq 14 Day Sensor Use as directed . 1 Each 11 02/13/2022 Active Nystatin 938952 UNIT/GM External Cream Apply 1 g topically [...] as of this encounter (statuses as of 03/24/2024) Active Problems Problem Noted Date Diagnosed Date Panic disorder 03/09/2024 Major depressive disorder, recurrent episode, mo derate 03/09/2024 History of hip surgery 02/09/2023 Non healing left heel wound 11/10/2022 S/P angioplasty with stent 06/23/2022 Coronary artery disease of n ative artery of [place] heart with stable angina pectoris 06/23/2022 Ischemic [...] as of this encounter (statuses as of 03/24/2024) Resolved Problems Problem Noted Date Diagnosed Date [...] as of this encounter (statuses as of 03/24/2024) Immunizations Name Administration Dates Next Due Hepatitis [...] IMG SPECT MULT STUDIES WITH PHARM INTERV [81834.02] (Order [id number]) Per Providers notes, he is requesting the [...] [address] [place] [address] Enoch Garrison MD [address] [place] [address] 04/13/2024 2:15 PM EST Office Visit Interventional Pain Center, [facility] [address] [place] [address] Lee Torres, [address] [place] [phone] 05/03/2024 1:00 PM EST PulmDiagnostic Sleep Lab Anurag Bunch [address] [facility] [place] [address] Julio C, Sleep Med [facility] Study [facility] [place] [address] 05/05/2024 9:30 AM EST Telemedicine Psychiatry [facility] [place] [address] [place] [address] Mauri Macias DO [address] [place] [address] 06/05/2024 1:00 PM EST Office Visit [facility] [address] [place] [address] Ruben Gordillo MD [address] [place] [address] 06/13/2024 3:40 PM EST Office Visit Neurology [facility] [address] [facility] [place] [address] Ernie Asif, [address] [facility] [place] [address] Health Maintenance Due Date Last Done Comments [...] filedocumented as of this encounter Care Teams Professional Engineer Relationship Specialty Start Date End Date Ruben Gordillo MD [address] [place] [address] PCP - General Internal Medicine 02/05/22 documented as of this encounter
--- OUTSIDE RECORDS SUMMARY | 2024-03-29 06:56 | External Medical Summary | Summary of Care ---
Author Name Unknown Organization [facility] Address [address] [place] [address] Phone [phone] Care Team Providers Care Block Operator Name Role Phone Ruben Gordillo MD Primary Care Provider [phone] Reason for Visit * Reason Onset Date Comments Forms Request 03/27/2024 [facility] Encounter Details Date Type Department Care Team ([facility] st Contact Info) Description 03/27/2024 Telephone [facility] [address] [place] [address] Ruben Gordillo MD [address], [place] [phone] Forms Request ([facility]) Allergies Active Allergy Reactions Criticality Noted Date [...] 3 07/31/2011 Active FreeStyle Sadiq 14 Day [place] Device Use as directed . 1 Each 1 02/13/2022 Active FreeStyle Sadiq 14 Day Sensor Use as directed . 1 Each 11 02/13/2022 Active Nystatin 954460 UNIT/GM External Cream Apply 1 g topically [...] MOUTH EVERY MORNING 90 Tablet 09/14/2023 Active Gabapentin 300 MG Oral Capsule [...] artery disease of n ative artery of [place] heart with stable angina pectoris 06/23/2022 Ischemic [...] Telephone Encounter - Sandra Haddad LPN - 03/27/2024 8:59 AM EDT Received Fax for BFPROVIDERS: Dr. Ruben Gordillo ORDER received from [facility] FIMS and FAXED documented in this encounter Plan of Treatment Upcoming Encounters Date Type Department Care Team (Late st Contact Info) Description 04/04/2024 1:30 PM EDT Office Visit Orthopaedics Spine Surgery, [facility] [place] [address] [place] [address] Enoch Garrison MD [address] [place] [address] 04/13/2024 2:15 PM EST Office Visit Interventional Pain Center, [facility] [address] [place] [address] Lee Torres DO [address] [place] [phone] 05/03/2024 1:00 PM EST PulmDiagnostic Sleep Lab [facility] [place] [address] [facility] Sleep Med Home Study [facility] [place] [address] 05/05/2024 9:30 AM EST Telemedicine Psychiatry [facility] [address] [place] [phone] Mauri Macias DO [address] [place] [address] 06/05/2024 1:00 PM EST Office Visit [facility] [place] [address] [place] [phone] Ruben Gordillo MD [address] [place] [address] 06/13/2024 3:40 PM EST Office Visit Neurology [facility] [address] [facility] [place] [address] Ernie Asif, [address] [facility] [place] [address] Health Maintenance Due Date Last Done Comments [...] filedocumented as of this encounter Care Teams Block Operator Relationship Specialty Start Date End Date Ruben Gordillo MD [address] [place] [address] PCP - General Internal Medicine 02/05/22 documented as of this encounter
--- OUTSIDE RECORDS SUMMARY | 2024-03-29 06:56 | External Medical Summary | Summary of Care ---
Author Name Unknown Organization [facility] Address [address] [place] [address] Phone [phone] Care Team Providers Care Engine Setter Name Role Phone Ruben Gordillo MD Primary Care Provider [phone] Reason for Visit * Reason Onset Date Comments Forms Request 03/27/2024 [facility] Encounter Details Date Type Department Care Team ([facility] st Contact Info) Description 03/27/2024 Telephone [facility] [address] [place] [address] Ruben Gordillo MD [address], [place] [phone] Forms Request ([facility]) Allergies Active Allergy Reactions Criticality Noted Date [...] 3 07/31/2011 Active FreeStyle Sadiq 14 Day [place] Device Use as directed . 1 Each 1 02/13/2022 Active FreeStyle Sadiq 14 Day Sensor Use as directed . 1 Each 11 02/13/2022 Active Nystatin 873324 UNIT/GM External Cream Apply 1 g topically [...] artery disease of n ative artery of [place] heart with stable angina pectoris 06/23/2022 Ischemic [...] Encounter - Sandra Haddad LPN - 03/27/2024 9:03 AM EDT Received Fax for BFPROVIDERS: Dr. Ruben Gordillo ORDER received from [facility] FIMS and FAXED documented in this encounter Plan of Treatment Upcoming Encounters Date Type Department Care Team (Late st Contact Info) Description 04/04/2024 1:30 PM EDT Office Visit Orthopaedics Spine Surgery, Kimberly [place] [address] [place] [address] Enoch Garrison MD [address] [place] [address] 04/13/2024 2:15 PM EST Office Visit Interventional Pain Center, [facility] [address] [place] [address] Lee Torres DO [address] [place] [phone] 05/03/2024 1:00 PM EST PulmDiagnostic Sleep Lab [facility] [address] [facility] [place] [address] [facility] Sleep Med Home Study [facility] [address] [facility] [place] [address] 05/05/2024 9:30 AM EST Telemedicine Psychiatry Clarice Young 9 [place] [phone] Mauri Macias DO [address] [place] [address] 06/05/2024 1:00 PM EST Office Visit [facility] [place] [address] [place] [address] Ruben Gordillo MD [address] [place] [address] 06/13/2024 3:40 PM EST Office Visit Neurology [facility] [address] [facility] [place] [address] Ernie Asif, [address] [facility] [place] [address] Health Maintenance Due Date Last Done Comments [...] filedocumented as of this encounter Care Teams Engine Setter Relationship Specialty Start Date End Date Ruben Gordillo MD [address] [place] [address] PCP - General Internal Medicine 02/05/22 documented as of this encounter
--- OUTSIDE RECORDS SUMMARY | 2024-03-29 06:57 | External Medical Summary | Summary of Care ---
Author Name Unknown Organization [facility] Address [address] [place] [address] Phone [phone] Care Team Providers Care Race Relations Adviser Name Role Phone Ruben Gordillo MD Primary Care Provider [phone] Reason for Visit * Reason Onset Date Comments FYI 03/14/2024 Encounter Details Date Type Department Care Team (Late st Contact Info) Description 03/14/2024 Telephone Orthopaedics Spine Surgery, [email or web address] Kimberly Lawson [address] [place] [phone] Enoch Garrison MD [address] [place] [phone] FYI Allergies Active Allergy Reactions Criticality Noted Date Comments Adhesive Tape 02/09/2023 Latex Rash 02/05/2022 Tramadol Nausea/vomiting 12/02/2014 documented as of this encounter (statuses as of 03/14/2024) Medications Medication Sig Dispensed Refills Start Date End Date Status GLUCOMETER ELITE CLASSIC KITIndications:DM type 2, not at goal (HCC) check blood sugar every morning when you get up 1 Kit 3 07/31/2011 Active FreeStyle Sadiq 14 Day [place] Device Use as directed . 1 Each 1 02/13/2022 Active FreeStyle Sadiq 14 Day Sensor Use as directed . 1 Each 02/13/2022 Active Nystatin 860910 UNIT/GM External Cream Apply 1 g topically [...] as of this encounter (statuses as of 03/14/2024) Active Problems Problem Noted Date Diagnosed Date Panic disorder 03/09/2024 Major depressive disorder, recurrent episode, mo derate 03/09/2024 History of hip surgery 02/09/2023 Non healing left heel wound 11/10/2022 S/P angioplasty with stent 06/23/2022 Coronary artery disease of n ative artery of [place] heart with stable angina pectoris 06/23/2022 Ischemic [...] as of this encounter (statuses as of 03/14/2024) Resolved Problems Problem Noted Date Diagnosed Date [...] as of this encounter (statuses as of 03/14/2024) Immunizations Name Administration Dates Next Due Hepatitis [...] encounter Miscellaneous Notes * Telephone Encounter - Anitha Rosas LPN - 03/14/2024 4:05 PM EDT Patient mailbox full, please get best call back number and time to reach patient and advise voice-mail box full * Telephone Encounter - Anitha Rosas LPN - 03/14/2024 3:50 PM EDT New Referring physician: Ruben Gordillo MD HPI: Back Which side extremity: Left/ Right / Both Injury and date: Onset, progress and duration: Balance problems: Bladder or bowel disturbances: Hand dominance for cervical and hand function: Workman compensation/ Litigation/ Commissary Representative: Spine investigations done and date: Xray:L Spine 06/29/2023 MRI: L Spine 10/08/2023 CT scan: EMG/ NCV: 09/03/2023 Spine treatment so far: Medications: baclofen, gabapentin, Physical therapy within last year: Chiropractor therapy: Brace use: Pain management and Spinal epidural injections: Spine surgery - Surgeon and year: Significant Medical history: If diabetic HbA1c: 03/06/2024 7.3 On blood thinners: Plavix, Aspirin 81 Osteoporosis screening: DEXA 05/11/2023 Tobacco/ Illicit drug use: Work profile documented in this encounter Plan of Treatment Upcoming Encounters Date Type Department Care Team (Late st Contact Info) Description 04/04/2024 1:30 PM EDT Office Visit Orthopaedics Spine Surgery, Kimberly Winche[place] [address] [place] [address] Enoch Garrison MD [address] [place] [address] 04/13/2024 2:15 PM EST Office Visit Interventional Pain Center, [facility] [address] [facility] [place] [address] Lee Torres, DO [address] [place] [phone] 05/03/2024 1:00 PM EST PulmDiagnostic Sleep Lab [address] [address] [facility] Sleep Med Home Study [address] [place] [address] 05/05/2024 9:30 AM EST Telemedicine Psychiatry [place] [address] [place] [address] Mauri Macias [address] [place] [address] 06/05/2024 1:00 PM EST Office Visit [facility] [address] [place] [phone] Ruben Gordillo MD [address] [place] [address] 06/13/2024 3:40 PM EST Office Visit Neurology Branden Juliane [place] [address] [place], [place] [address] Ernie Asif, DO [address] [place] [address] Health Maintenance Due Date Last Done Comments [...] filedocumented as of this encounter Care Teams Race Relations Adviser Relationship Specialty Start Date End Date Ruben Gordillo MD [address] [place] [address] PCP - General Internal Medicine 02/05/22 documented as of this encounter
--- OUTSIDE RECORDS SUMMARY | 2024-03-29 06:57 | External Medical Summary | Summary of Care ---
Author Name Unknown Organization [facility] Address [address] [place] [address] Phone [phone] Care Team Providers Care Branding Specialist Name Role Phone Ruben Gordillo MD Primary Care Provider [phone] Reason for Visit * Reason Onset Date Comments Hospital Follow-Up 03/20/2024 [facility] ([facility]) Encounter Details Date Type Department Care Team ([facility] st Contact Info) Description 03/20/2024 Telephone [place] [address] [place] [address] Chantelle Ashton RN Hospital Follow-Up ([facility] ([facility])) Allergies Active Allergy Reactions Criticality Noted Date Comments Adhesive Tape 02/09/2023 Latex Rash 02/05/2022 Tramadol Nausea/vomiting 12/02/2014 documented as of this encounter (statuses as of 03/20/2024) Medications Medication Sig Dispensed Refills Start Date End Date Status GLUCOMETER ELITE CLASSIC KITIndications:DM type 2, not at goal (HCC) check blood sugar every morning when you get up 1 Kit 3 07/31/2011 Active FreeStyle Sadiq 14 Day [place] Device Use as directed . 1 Each 1 02/13/2022 Active FreeStyle Sadiq 14 Day Sensor Use as directed . 1 Each 11 02/13/2022 Active Nystatin 002352 UNIT/GM External Cream Apply 1 g topically to affected area in the morning and 1 g before bedtime. To affacted area for two weeks.. 30 g 5 04/13/2023 Active Dulaglutide 1.5 MG/0.5ML Subcutaneous Solution Pen-injector ([facility])Indicatio ns:Type 2 diabetes mellitus with hemoglobin A1c [...] as of this encounter (statuses as of 03/20/2024) Active Problems Problem Noted Date Diagnosed Date Panic disorder 03/09/2024 Major depressive disorder, recurrent episode, mo derate 03/09/2024 History of hip surgery 02/09/2023 Non healing left heel wound 11/10/2022 S/P angioplasty with stent 06/23/2022 Coronary artery disease of n ative artery of [place] heart with stable angina pectoris 06/23/2022 Ischemic [...] as of this encounter (statuses as of 03/20/2024) Resolved Problems Problem Noted Date Diagnosed Date [...] as of this encounter (statuses as of 03/20/2024) Immunizations Name Administration Dates Next Due Hepatitis [...] encounter Miscellaneous Notes * Telephone Encounter - Chantelle Ashton RN - 03/20/2024 1:32 PM EDT Transitions of Care Note Reason for Referral:Recent Admission Phone visit for follow up: [facility] #1 Admitted to: [facility], Date: 03/13/2024 Discharged to: Home with Home services, Date: 03/17/2024 Diagnosis driving hospitalization: Urinary Tract Infection, Hypernatremia New medications: Augmentin, Metoprolol succinate 50 mg Discontinued medications: Metoprolol succinate 25 mg, Fludrocortisone Attempted Phone Call First Attempt Call Outcome Unable to Leave Message - Mailbox full Chantelle Ashton RN documented in this encounter Plan of Treatment Upcoming Encounters Date Type Department Care Team (Late st Contact Info) Description 03/21/2024 2:00 PM EDT Office Visit [facility] [address] [place] [phone] Ruben Gordillo MD [address] [place] [address] 04/04/2024 1:30 PM EDT Office Visit Orthopaedics Spine Surgery, Kimberly Winchester [address] [place] [address] Enoch Garrison MD [address] [place] [address] 04/13/2024 2:15 PM EST Office Visit Interventional Pain Center, [facility] [address] [place] [address] Lee Torres DO [address] [place] [phone] 05/03/2024 1:00 PM EST PulmDiagnostic Sleep Lab Anurag Bunch [address] [facility] [place] [address] [facility], Sleep Med Home Study Anurag [facility] [place] [address] 05/05/2024 9:30 AM EST Telemedicine Psychiatry [place] [address] [place] [address] Mauri Macias DO [address] [place] [address] 06/05/2024 1:00 PM EST Office Visit [facility] [address] [place] [address] Ruben Gordillo MD [address] [place] [address] 06/13/2024 3:40 PM EST Office Visit Neurology [facility] [address] [facility] [place] [address] Ernie Asif, [address] [facility] [place] [address] Health Maintenance Due Date Last Done Comments Pneumococcal Vaccine: Pediatrics (0 to 5 Years) and At-Risk Patients (6 to 64 Years) (2 of 2 - PCV) 02/22/2013 02/23/2012 Cologuard 2021 Colonoscopy 2021 Colorectal Cancer Screening 2021 Fecal Occult Blood Test 2021 Sigmoidoscopy 2021 COVID-19 Vaccine ( - season) 2024 Influenza Vaccine (FLU shot) (#1) [...] filedocumented as of this encounter Care Teams Branding Specialist Relationship Specialty Start Date End Date Ruben Gordillo MD [address] [place] [address] PCP - General Internal Medicine 02/05/22 documented as of this encounter
--- OUTSIDE RECORDS SUMMARY | 2024-03-29 06:57 | External Medical Summary | Summary of Care ---
Author Name Unknown Organization [facility] Address [address] [place] [address] Phone [phone] Care Team Providers Care Health Information Manager Name Role Phone Ruben Gordillo MD Primary Care Provider [phone] Reason for Visit * Reason Comments eRx-Medication Refill Encounter Details Date Type Department Care Team (Late st Contact Info) Description 03/19/2024 Refill Psychiatry [place] [address] [place] [address] Paulina De Leon DO [address] [place] [address] Allergies Active Allergy Reactions Criticality Noted Date Comments Adhesive Tape 02/09/2023 Latex Rash 02/05/2022 Tramadol Nausea/vomiting 12/02/2014 documented as of this encounter (statuses as of 03/21/2024) Medications Medication Sig Dispensed Refills Start Date End Date Status GLUCOMETER ELITE CLASSIC KITIndications:DM type 2, not at goal (HCC) check blood sugar every morning when you get up 1 Kit 3 2 Active FreeStyle Sadiq 14 Day [place] Device Use as directed . 1 Each 1 2 Active FreeStyle Sadiq 14 Day Sensor Use as directed . 1 Each 11 2 Active Nystatin 214004 UNIT/GM External Cream Apply 1 g topically [...] the morning. 30 Tablet 5 4 Active DULoxetine HCl [...] before bedtime. 60 Tablet 2 4 Active clonazePAM 0.5 MG Oral Tablet (KlonoPIN) TAKE ONE TABLET BY MOUTH TWICE DAILY NEEDED FOR ANXIETY 60 Tablet 1 4 Active clonazePAM 0.5 MG Oral Tablet (KlonoPIN) TAKE ONE TABLET BY MOUTH TWICE DAILY NEEDED FOR ANXIETY 60 Tablet 1 4 03/21/20 24 Discontinued documented as of this encounter (statuses as of 03/21/2024) Active Problems Problem Noted Date Diagnosed Date Panic disorder 03/09/2024 Major depressive disorder, recurrent episode, mo derate 03/09/2024 History of hip surgery 02/09/2023 Non healing left heel wound 11/10/2022 S/P angioplasty with stent 06/23/2022 Coronary artery disease of n ative artery of [place] heart with stable angina pectoris 06/23/2022 Ischemic [...] as of this encounter (statuses as of 03/21/2024) Resolved Problems Problem Noted Date Diagnosed Date [...] as of this encounter (statuses as of 03/21/2024) Immunizations Name Administration Dates Next Due Hepatitis [...] encounter Miscellaneous Notes * Telephone Encounter - Paulina De Leon DO - 03/21/2024 2:11 PM EDTSigned Prescriptions: Disp Refills clonazePAM 0.5 MG Oral Tablet (KlonoPIN) 60 Tab*1 Sig: TAKE ONE TABLET BY MOUTH TWICE DAILY NEEDED FOR ANXIETYAuthorizing Provider: PAULINA DE LEON * Telephone Encounter - Adi Campuzano CRNP - 03/21/2024 1:22 PM EDTPending Prescriptions: Disp Refills clonazePAM 0.5 MG Oral Tablet [Pharmacy Me*60 Tab*0 Sig: TAKE ONE TABLET BY MOUTH TWICE DAILY NEEDED FOR ANXIETY documented in this encounter Plan of Treatment Upcoming Encounters Date Type Department Care Team (Late st Contact Info) Description 04/04/2024 1:30 PM EDT Office Visit Orthopaedics Spine Surgery, Kimberly Winchester [address] [place] [address] Enoch Garrison MD [address] [place] [address] 04/13/2024 2:15 PM EST Office Visit Interventional Pain Center, [facility] [address] [facility] [place] [address] Lee Torres, DO [address] [phone] 05/03/2024 1:00 PM EST PulmDiagnostic Sleep Lab [facility] [address] [facility] Sleep Med Home Study [address] [address] 05/05/2024 9:30 AM EST Telemedicine Psychiatry Yonathan [place] [address] [place] [address] Paulina De Leon, DO [address] [place] [address] 06/05/2024 1:00 PM EST Office Visit [facility] [address] [place] [address] Ruben Gordillo MD [address] [place] [address] 06/13/2024 3:40 PM EST Office Visit Neurology Aneudy [place] [address] [facility] [place], [place] [address] Ernie Asif, DO [address] [place] [address] Health Maintenance Due Date Last Done Comments [...] filedocumented as of this encounter Care Teams Health Information Manager Relationship Specialty Start Date End Date Ruben Gordillo MD [address] [place] [address] PCP - General Internal Medicine 02/05/22 documented as of this encounter
--- OUTSIDE RECORDS SUMMARY | 2024-03-29 06:57 | External Medical Summary | Summary of Care ---
Author Name Unknown Organization [facility] Address [address] [place] [address] Phone [phone] Care Team Providers Care Assembly Inspector Helper Name Role Phone Ruben Gordillo MD Primary Care Provider [phone] Reason for Visit * Reason Onset Date Comments Hospital Follow-Up 03/20/2024 [facility] ([facility]) Encounter Details Date Type Department Care Team ([facility] st Contact Info) Description 03/20/[address] [address] Chantelle Ashton RN Hospital Follow-Up ([facility] ([facility])) Allergies Active Allergy Reactions Criticality Noted Date Comments Adhesive Tape 02/09/2023 Latex Rash 02/05/2022 Tramadol Nausea/vomiting 12/02/2014 documented as of this encounter (statuses as of 03/22/2024) Medications Medication Sig Dispensed Refills Start Date End Date Status GLUCOMETER ELITE CLASSIC KITIndications:DM type 2, not at goal (HCC) check blood sugar every morning when you get up 1 Kit 3 2 Active FreeStyle Sadiq 14 Day [place] Device Use as directed . 1 Each 1 2 Active FreeStyle Sadiq 14 Day Sensor Use as directed . 1 Each 11 2 Active Nystatin 790694 UNIT/GM External Cream Apply 1 g topically to affected area in the morning and 1 g before bedtime. To affacted area for two weeks.. 30 g 5 3 Active Dulaglutide 1.5 MG/0.5ML Subcutaneous Solution Pen-injector ([place])Indicati ons:Type 2 diabetes mellitus with hemoglobin A1c [...] as of this encounter (statuses as of 03/22/2024) Active Problems Problem Noted Date Diagnosed Date Panic disorder 03/09/2024 Major depressive disorder, recurrent episode, mo derate 03/09/2024 History of hip surgery 02/09/2023 Non healing left heel wound 11/10/2022 S/P angioplasty with stent 06/23/2022 Coronary artery disease of n ative artery of [place] heart with stable angina pectoris 06/23/2022 Ischemic [...] as of this encounter (statuses as of 03/22/2024) Resolved Problems Problem Noted Date Diagnosed Date [...] as of this encounter (statuses as of 03/22/2024) Immunizations Name Administration Dates Next Due Hepatitis [...] for follow up: [facility] #1 Admitted to: [facility], Date: 03/13/2024 Discharged to: Home with Home services, Date: 03/17/2024 Diagnosis driving hospitalization: Urinary Tract Infection, Hypernatremia New medications: Augmentin, Metoprolol succinate 50 mg Discontinued medications: Metoprolol succinate 25 mg, Fludrocortisone Attempted Phone Call First Attempt Call Outcome Unable to Leave Message Mailbox full Chantelle Ashton RN Transitions of Care Note Reason for Referral:Recent Admission Phone visit for follow up: ROSEMARIE #2 (No show to 03/21/24 appt) Admitted to: [facility], Date: 03/13/2024 Discharged to: Home with Home services, Date: 03/17/2024 Diagnosis driving hospitalization: Urinary Tract Infection, Hypernatremia Attempted Phone Call Second Attempt Call Outcome Unable to Leave Message Mailbox full documented in this encounter Plan of Treatment Upcoming Encounters Date Type Department Care Team (Late st Contact Info) Description 04/04/2024 1:30 PM EDT Office Visit Orthopaedics Spine Surgery, Kimberly Winchester [address] [place] [address] Enoch Garrison MD [address] [place] [address] 04/13/2024 2:15 PM EST Office Visit Interventional Pain Center, [facility] [address] [place] [address] Lee Torres DO [address] [place] [address] 05/03/2024 1:00 PM EST PulmDiagnostic Sleep Lab [facility]urag [facility]unch [facility] [place] [address] [facility], Sleep Med Home Study Anurag [address] [facility] [place] [address] 05/05/2024 9:30 AM EST Telemedicine Psychiatry [place] [address] [place] [address] Mauri Macias DO [address] [place] [address] 06/05/2024 1:00 PM EST Office Visit [facility] [address] [place] [address] Ruben Gordillo MD [address] [place] [address] 06/13/2024 3:40 PM EST Office Visit Neurology [facility] [address] [facility] [place] [address] Ernie Asif, [address] [facility] [place] [address] Health Maintenance Due Date Last Done Comments [...] filedocumented as of this encounter Care Teams Assembly Inspector Helper Relationship Specialty Start Date End Date Ruben Gordillo MD [address] [place] [facility] [place] [address] PCP - General Internal Medicine 02/05/22 documented as of this encounter
[2024-03-29 07:32] LABS: Basophils # (auto) 0.18 K/uL (0.00-0.20); Basophils % (auto) 1.2 %; Eosinophils # (auto) 0.34 K/uL (0.00-0.50); Eosinophils % (auto) 2.3 %; Hematocrit (blood only) 35.4 % (42.0-52.0); Hemoglobin 11.1 g/dl (14.0-18.0); Immature Granulocytes % (auto) 1.4 %; Lymphocytes # (auto) 2.97 K/uL (1.20-3.40); Lymphocytes % (auto) 20.1 %; Mean Corpuscular Hemoglobin 26.1 pg (25.0-34.0); Mean Corpuscular Hgb Conc 31.4 g/dL (32.0-36.0); Mean Corpuscular Volume 83.1 fL (80.0-100.0); Mean Platelet Volume 11.5 fL (9.4-12.4); Monocytes # (auto) 1.54 K/uL (0.11-0.59); Monocytes % (auto) 10.4 %; Neutrophils # (auto) 9.54 K/uL (1.40-6.50); Neutrophils % (auto) 64.6 %; Platelet Count 467 K/uL (130-400); RDW Coefficient of Variation 15.2 % (11.5-14.5); RDW Standard Deviation 44.7 fL (36.4-46.3); Red Blood Count 4.26 M/uL (4.70-6.10); White Blood Count 14.77 K/ul (4.8-10.8)
[2024-03-29 08:03] LABS: Albumin Globulin Ratio 1.1 (0.9-2); Albumin Level 3.5 gm/dl (3.4-5.0); BUN Creatinine Ratio 23.4 (10-20); Bilirubin,Total 0.7 mg/dl (0.2-1.0); Calcium 8.9 mg/dl (8.6-10.3); Creatinine Clr Calc Pharmacy 90.3 ml/min; Globulin 3.3 gm/dl (2.5-4.0); Potassium 4.6 mmol/L (3.5-5.1); Total Protein 6.8 gm/dl (6.0-8.3)
[2024-03-29] MEDS: DOCUSATE SODIUM/SENNA 50/8.6MG TAB PO SCH (09:58)
[2024-03-29] MEDS: DULoxetine HCL 30 MG CAP PO SCH (09:58)
[2024-03-29] MEDS: GABAPENTIN 300 MG CAP PO SCH (09:58)
[2024-03-29] MEDS: DULoxetine HCL 60 MG CAP PO SCH (09:58)
[2024-03-29] MEDS: THIAMINE HCL 100 MG TAB PO SCH (09:58)
[2024-03-29] MEDS: ENOXAPARIN INJ 40 MG/0.4 ML SYR SQ SCH (09:58)
[2024-03-29] MEDS: MONTELUKAST SODIUM 10 MG TABLET PO SCH (09:59)
[2024-03-29] MEDS: POLYETHYLENE (MIRALAX) 17 GM PACK PO SCH (09:59)
[2024-03-29] MEDS: MIDODRINE HCL 2.5 MG TAB PO SCH (09:59)
[2024-03-29] MEDS: busPIRone 5 MG TAB PO SCH (09:59)
[2024-03-29] MEDS: OXYBUTYNIN CHLORIDE XL 5 MG TABCR PO SCH (09:59)
[2024-03-29] MEDS: NICOTINE 14 MG/24 HR PATCH TD SCH (09:59)
[2024-03-29] MEDS: METOPROLOL SUCC 50MG EXT REL TAB PO SCH (09:59)
[2024-03-29] MEDS: PANTOprazole 40 MG TAB PO SCH (09:59)
[2024-03-29] MEDS: ATORVASTATIN 40 MG TAB PO SCH (10:00)
[2024-03-29] MEDS: CLOPIDOGREL BISULFATE 75 MG TAB PO SCH (10:00)
[2024-03-29] MEDS: buPROPion XL 150 MG TABCR PO SCH (10:00)
[2024-03-29] MEDS: ASPIRIN 81 MG ECTAB PO SCH (10:00)
[2024-03-29] MEDS: ACETAMINOPHEN 500 MG TAB PO PRN (14:22)
[2024-03-29] MEDS: clonazePAM 0.5 MG TAB PO PRN (14:23)
--- NOTE | 2024-03-29 14:35 | Hospitalist Progress Note ---
Date of Service March 29, 2024 Assessment & Plan (1) Severe sepsis: Present on Admission?: Yes (2) Acute UTI: Present on Admission?: Yes Plan Severe sepsis Complicated urinary tract infection History of bilateral hydroureteronephrosis status post Medrano placement Patient's presents to the hospital with generalized fatigue/lethargy Recent history of hospitalization with Klebsiella UTI History of self cath at home; had Medrano catheter placed during the hospitalization. Medrano catheter changed on 03/28 Urinalysis suggestive of infection Continue on cefepime; follow-up on final culture Urology recommended follow-up for catheter removal as outpatient last admission chronic diastolic heart failure (EF 50-55%, TTE 2023)- on metoprolol, continue hx CAD status post stent- continue DAPT and statins hypertension, stable, patient on midodrine for orthostatic hypotension CRI, creatinine better than baseline DM2 on oral medications, suboptimal control as of recent hemoglobin A1c of 7.9 last October 2023 chronic anemia, hemoglobin at baseline anxiety/mood disorder, at baseline- contiue home meds Functional disability/medical noncompliance past tobacco abuse Time spent evaluating patient, direct bedside care, chart review, placing orders, interpretation of diagnostic studies, discussion with consultants, patient, and family members, as well as other required patient management activities is 50 minutes Please note the above document was generated using voice recognition software. It may contain grammatical, syntax or spelling errors. Any formal questions or concerns about the content, text or information contained within the body of this dictation should be directly addressed to the provider for clarification Admission and Anticipated Discharge Date Admission Date: March 28, 2024 Subjective Patient seen and examined at bedside. He is lying on the bed comfortably; reports generalized weakness and fatigue Vitals are stable; no significant events overnight Review of Systems Review of Systems: All systems reviewed & are unremarkable except as noted in Subjective Physical Exam Physical Exam: Constitutional: Awake, alert oriented to self time and place. Appears tired Respiratory: normal respiratory effort, lungs clear to auscultation, no wheeze, rales, rhonchi. Normal insp/exp effort, no accessory muscle use Cardiovascular: RRR, no murmur, no edema Vessels: no JVD or carotid bruit Chest: normal inspection of chest Abdomen: normal bowel sounds, soft, nontender, no hepatosplenomegaly Musculoskeletal: no cyanosis or clubbing, extremities motor strength 5/5 Skin: no rashes, warm and dry normal turgor Neurologic: PERRL, EOMI, accommodation nl, no face palsy, no dysarthria CN's II- XI intact bilaterally and moves all extremities Psychiatric: A+Ox3, euthymic affect Results & Data Results & Data Vital Signs (Past 12 Hours) Vital Signs Temp Pulse Pulse Resp BP Pulse Ox O2 Del Method 03/29/24 11:32 37.0 C 110 H 18 158/99 H 97 Room Air 03/29/24 11:20 104 H 03/29/24 07:00 36.5 C 84 18 132/66 96 Room Air 03/29/24 03:34 37 C 104 H 18 137/87 96 Room Air
[2024-03-29] MEDS: oxyCODONE HCL IR 5 MG TAB (IMMEDIATE RELEASE) PO STA (21:06)
[2024-03-30] MEDS: MELATONIN 3 MG TAB PO PRN (01:09)
[2024-03-30] MEDS: HYDROmorphone INJ 0.5 MG/0.5 ML SYR IV STA (06:48)
--- NOTE | 2024-03-30 14:42 | Hospitalist Progress Note ---
Date of Service March 30, 2024 Assessment & Plan (1) Severe sepsis: (2) Acute UTI: Plan Severe sepsis CAUTI, POA Complicated urinary tract infection History of bilateral hydroureteronephrosis status post Medrano placement Patient's presents to the hospital with generalized fatigue/lethargy Recent history of hospitalization with Klebsiella UTI History of self cath at home; had Medrano catheter placed during the hospitalization. Medrano catheter changed on 03/28 Urinalysis suggestive of infection Urine culture growing Pseudomonas and gram-negative bacilli Continue on cefepime; plan to treat for at least 7 days. Urology recommends to follow-up with them for catheter removal PT OT evaluation done; patient wants to go to rehab; case management on board chronic diastolic heart failure (EF 50-55%, TTE 2023)- on metoprolol, continue hx CAD status post stent- continue DAPT and statins hypertension, stable, patient on midodrine for orthostatic hypotension CRI, creatinine better than baseline DM2 on oral medications, suboptimal control as of recent hemoglobin A1c of 7.9 last October 2023 chronic anemia, hemoglobin at baseline anxiety/mood disorder, at baseline- contiue home meds Functional disability/medical noncompliance past tobacco abuse Time spent evaluating patient, direct bedside care, chart review, placing orders, interpretation of diagnostic studies, discussion with consultants, patient, and family members, as well as other required patient management activities is 50 minutes Please note the above document was generated using voice recognition software. It may contain grammatical, syntax or spelling errors. Any formal questions or concerns about the content, text or information contained within the body of this dictation should be directly addressed to the provider for clarification Admission and Anticipated Discharge Date Admission Date: March 28, 2024 Subjective Patient reports that he is feeling much better No fever or chills Hemodynamically stable No significant events overnigh Review of Systems Review of Systems: All systems reviewed & are unremarkable except as noted in Subjective Physical Exam Physical Exam: Constitutional: Awake, alert oriented to self time and place. Appears tired Respiratory: normal respiratory effort, lungs clear to auscultation, no wheeze, rales, rhonchi. Normal insp/exp effort, no accessory muscle use Cardiovascular: RRR, no murmur, no edema Vessels: no JVD or carotid bruit Chest: normal inspection of chest Abdomen: normal bowel sounds, soft, nontender, no hepatosplenomegaly Musculoskeletal: no cyanosis or clubbing, extremities motor strength 5/5 Skin: no rashes, warm and dry normal turgor Neurologic: PERRL, EOMI, accommodation nl, no face palsy, no dysarthria CN's II- XI intact bilaterally and moves all extremities Psychiatric: A+Ox3, euthymic affect Results & Data Results & Data Vital Signs (Past 12 Hours) Vital Signs Temp Pulse Pulse Resp BP Pulse Ox O2 Del Method 03/30/24 05:40 93 H 03/30/24 04:26 36.9 C 93 H 20 123/63 97 Room Air
[2024-03-30] MEDS: tiZANidine HCL 4 MG TABLET PO PRN (19:43)
[2024-03-30] MEDS: oxyCODONE HCL IR 5 MG TAB (IMMEDIATE RELEASE) PO PRN (21:06)
[2024-03-31 06:56] LABS: Basophils # (auto) 0.19 K/uL (0.00-0.20); Basophils % (auto) 1.2 %; Eosinophils % (auto) 3.8 %; Hematocrit (blood only) 36.5 % (42.0-52.0); Hemoglobin 11.5 g/dl (14.0-18.0); Immature Granulocytes # (auto) 0.22 K/uL (0.01-0.20); Immature Granulocytes % (auto) 1.4 %; Lymphocytes # (auto) 2.84 K/uL (1.20-3.40); Mean Corpuscular Hemoglobin 26.3 pg (25.0-34.0); Mean Corpuscular Hgb Conc 31.5 g/dL (32.0-36.0); Mean Corpuscular Volume 83.5 fL (80.0-100.0); Mean Platelet Volume 11.1 fL (9.4-12.4); Monocytes # (auto) 1.85 K/uL (0.11-0.59); Monocytes % (auto) 11.7 %; Neutrophils # (auto) 10.07 K/uL (1.40-6.50); Neutrophils % (auto) 63.9 %; Platelet Count 475 K/uL (130-400); RDW Coefficient of Variation 14.9 % (11.5-14.5); RDW Standard Deviation 44.7 fL (36.4-46.3); Red Blood Count 4.37 M/uL (4.70-6.10); White Blood Count 15.77 K/ul (4.8-10.8)
[2024-03-31 07:13] LABS: BUN Creatinine Ratio 21.1 (10-20); Calcium 8.9 mg/dl (8.6-10.3); Potassium 4.9 mmol/L (3.5-5.1)
[2024-03-31] MEDS: MICONAZOLE NITRATE POWDER 85 GM EXT PRN (08:04)
[2024-03-31] MEDS: OPTIRAY 320 100ml IV ONE (12:47)
--- NOTE | 2024-03-31 12:56 | Hospitalist Progress Note ---
Date of Service March 31, 2024 Assessment & Plan (1) Severe sepsis: (2) Acute UTI: Plan The patient is a 48-year-old male who presented to the hospital with generalized fatigue/lethargy, recent history of hospitalization with Klebsiella UTI with history of self cath at home, Medrano catheter placed with recent hospitalization, Medrano catheter changed on 03/28 Severe sepsis CAUTI, POA Complicated urinary tract infection History of bilateral hydroureteronephrosis status post Medrano placement Urine culture + Pseudomonas/Klebsiella, both susceptible to IV cefepime Continue IV cefepime for at least 7 days until 04/05, follow-up with urology outpatient Chronic leukocytosis noted, continue to monitor Patient continues to complain of lower back pain with lumbar tenderness CT lumbar spine with contrast ordered to rule out abscess, pending Hx chronic diastolic heart failure: EF 50-55%, continue metoprolol Hx CAD s/p stent: Continue DAPT/statin Hx orthostatic hypotension: Continue midodrine Hx DM2: A1c 7.9 last October 2023, SSI/sugars controlled for now Hx anxiety/mood disorder: Continue Wellbutrin/Klonopin Full code DVT prophylaxis: Lovenox Time spent evaluating patient, direct bedside care, chart review, placing orders, interpretation of diagnostic studies, discussion with consultants, patient, and family members, as well as other required patient management activities is 50 minutes Admission and Anticipated Discharge Date Admission Date: March 28, 2024 Supervising Physician Co-Signing Physician Notes Plan of care discussed with above advanced practitioner. Patient continues to report lower back pain. Plan for CT lumbar spine with contrast Continue on IV antibiotics Placement is pending I have reviewed the advanced practitioner's documentation, and I agree with, and take responsibility for the plan of care Subjective Patient seen and examined. Still with complaints of lower back pain. Reports this is chronic but it has been worsening throughout the hospitalization. Denies any fever/chills overnight. Denies any abdominal pain. Denies any chest pain/shortness of breath. Review of Systems Review of Systems: All systems reviewed & are unremarkable except as noted in HPI & below Physical Exam Constitutional: WD/WN, vitals as above ENMT: external ear and nose normal, oropharynx normal Neck: trachea midline, no thyromegaly Respiratory: normal respiratory effort, lungs clear to auscultation Cardiovascular: RRR, no murmur, no edema Gastrointestinal (Abdomen): normal bowel sounds, soft, nontender, no hepatosplenomegaly Musculoskeletal: no cyanosis or clubbing, extremities motor strength 5/5 (Lumbar spinal tenderness) Neurologic: PERRL, EOMI, accommodation nl, no face palsy, no dysarthria Psychiatric: A+Ox3, euthymic affect Lymphatic: no cervical or axillary lymphadenopathy Results & Data Results & Data Vital Signs (Past 12 Hours) Vital Signs Temp Pulse Pulse Resp BP Pulse Ox O2 Del Method 03/31/24 07:48 36.7 C 93 H 20 127/88 98 Room Air 03/31/24 05:47 92 H 03/31/24 03:20 36.7 C 95 H 18 135/87 98 Room Air Laboratory Results Laboratory Results WBC 15.77 K/ul (4.8-10.8) H 03/31/24 06:35 RBC 4.37 M/uL (4.70-6.10) L 03/31/24 06:35 Hgb 11.5 g/dl (14.0-18.0) L 03/31/24 06:35 Hct 36.5 % (42.0-52.0) L 03/31/24 06:35 MCV 83.5 fL (80.0-100.0) 03/31/24 06:35 MCH 26.3 pg (25.0-34.0) 03/31/24 06:35 MCHC 31.5 g/dL (32.0-36.0) L 03/31/24 06:35 RDW Std Deviation 44.7 fL (36.4-46.3) 03/31/24 06:35 RDW Coeff of Pancho 14.9 % (11.5-14.5) H 03/31/24 06:35 Plt Count 475 K/uL (130-400) H 03/31/24 06:35 MPV 11.1 fL (9.4-12.4) 03/31/24 06:35 Immature Gran % (Auto) 1.4 % 03/31/24 06:35 Neut % (Auto) 63.9 % 03/31/24 06:35 Lymph % (Auto) 18.0 % 03/31/24 06:35 [place] % (Auto) 11.7 % 03/31/24 06:35 Eos % (Auto) 3.8 % 03/31/24 06:35 Baso % (Auto) 1.2 % 03/31/24 06:35 Neut # (Auto) 10.07 K/uL (1.40-6.50) H 03/31/24 06:35 Lymph # (Auto) 2.84 K/uL (1.20-3.40) 03/31/24 06:35 [place] # (Auto) 1.85 K/uL (0.11-0.59) H 03/31/24 06:35 Eos # (Auto) 0.60 K/uL (0.00-0.50) H 03/31/24 06:35 Baso # (Auto) 0.19 K/uL (0.00-0.20) 03/31/24 06:35 Immature Gran # (Auto) 0.22 K/uL (0.01-0.20) H 03/31/24 06:35 ESR 74 mm/hr (0-15) H 03/31/24 06:35 PT 10.7 Seconds (9.0-12.0) 03/28/24 17:49 INR 1.0 (0.9-1.1) 03/28/24 17:49 Sodium 135 mmol/L (136-145) L 03/31/24 06:35 Potassium 4.9 mmol/L (3.5-5.1) 03/31/24 06:35 Chloride 101 mmol/L (98-107) 03/31/24 06:35 Carbon Dioxide 28 mmol/L (21-32) 03/31/24 06:35 Anion Gap 6 (3-11) 03/31/24 06:35 BUN 23 mg/dl (6-23) 03/31/24 06:35 Creatinine 1.09 mg/dl (0.6-1.4) 03/31/24 06:35 Est Cr Clr Drug Dosing 92.0 ml/min 03/31/24 06:35 eGFR 84.24 03/31/24 06:35 BUN/Creatinine Ratio 21.1 (10-20) H 03/31/24 06:35 Glucose 159 mg/dl (70-99(Fasting)) H 03/31/24 06:35 POC Glucose 247 mg/dl (70-99) H 03/31/24 08:32 Lactate 2.0 mmol/L (0.4-2.0) 03/29/24 00:35 Calcium 8.9 mg/dl (8.6-10.3) 03/31/24 06:35 Magnesium 1.7 mg/dl (1.7-2.4) 03/28/24 19:39 Total Bilirubin 0.7 mg/dl (0.2-1.0) 03/29/24 07:11 AST 61 U/L (13-39) H 03/29/24 07:11 ALT 82 U/L (7-52) H 03/29/24 07:11 Alkaline Phosphatase 98 U/L (34-104) 03/29/24 07:11 Ammonia 19.0 umol/L (18-72) 03/28/24 21:26 Total Creatine Kinase 35 U/L (30-223) 03/28/24 19:39 Troponin I High Sens 25.7 pg/ml (0-20) H 03/29/24 00:34 B-Natriuretic Peptide 286 pg/ml (0-100) H 03/28/24 17:49 Total Protein 6.8 gm/dl (6.0-8.3) 03/29/24 07:11 Albumin 3.5 gm/dl (3.4-5.0) 03/29/24 07:11 Globulin 3.3 gm/dl (2.5-4.0) 03/29/24 07:11 Albumin/Globulin Ratio 1.1 (0.9-2) 03/29/24 07:11 TSH 3.966 uIu/ml (0.300-4.500) 03/28/24 17:49 Urine Color Dark Yellow 03/28/24 20:04 Urine Appearance Cloudy (Clear) A 03/28/24 20:04 Urine pH 5.5 (4.5-7.5) 03/28/24 20:04 Ur Specific [place] 1.027 (1.000-1.030) 03/28/24 20:04 Urine Protein Trace (Negative) H 03/28/24 20:04 Urine Glucose (UA) 3+ (Negative) H 03/28/24 20:04 Urine Ketones Negative (Negative) 03/28/24 20:04 Urine Blood Negative (Negative) 03/28/24 20: Urine Nitrite Positive (Negative) A 03/28/24 20:04 Urine Bilirubin Negative (Negative) 03/28/24 20:04 Urine Urobilinogen Negative (Negative) 03/28/24 20:04 Ur Leukocyte Esterase 1+ (Negative) H 03/28/24 20:04 Urine WBC (Auto) >50 /hpf (0-5) H 03/28/24 20:04 Urine RBC (Auto) 0-2 /hpf (0-2) 03/28/24 20:04 U Hyaline Cast (Auto) 6-10 /lpf (0-2) H 03/28/24 20:04 U Epithel Cells (Auto) 0-2 /hpf (0-2) 03/28/24 20:04 Urine Bacteria (Auto) 3+ (None Seen) H 03/28/24 20:04 Urine Yeast Present (None Prsent) A 03/28/24 20:04 Impressions Chest X-Ray 03/28/24 18:19 XR chest 1V portable HISTORY: 48 years-old Male weakness acute weakness COMPARISON: 03/13/[address] TECHNIQUE: AP view of the chest FINDINGS: Cardiomediastinal and hilar silhouettes are within normal limits. No pneumothorax, pleural effusion or airspace consolidation. Bones appear grossly intact. IMPRESSION: No acute process. ACT 112: Negative or not required by law. The above report was generated using voice recognition software. It may contain grammatical, syntax or spelling errors. Electronically signed by: Franklin Polanco M.D. 03/28/2024 7:01 PM
[2024-03-31] MEDS: oxyCODONE HCL IR 5 MG TAB (IMMEDIATE RELEASE) PO PRN (13:33)
--- NOTE | 2024-03-31 14:49 | CT Scan Report ---
CT SCAN OF THE LUMBAR SPINE WITH IV CONTRAST CLINICAL HISTORY: Low back pain. COMPARISON STUDY: Lumbar spine radiographs dated 12/28/2022. CT of the lumbar spine dated 03/29/2010. TECHNIQUE: Following the IV administration of 93 cc of Optiray 320, CT scan of the lumbar spine is pe rformed from the lower thoracic spine to the sacrum. Images are reviewed in the axial, sagittal, and coronal planes. IV contrast was administered without complication. A dose lowering technique was util ized adhering to the principles of ALARA. CT DOSE: 1262.32 mGy.cm FINDINGS: The skeletal structures are well-mineralized. There is no evidence of acute fracture or mal alignment involving the lumbar spine. Vertebral body height and alignment are maintained. Mild anteri or wedging of T12 is similar to previous. The transverse and spinous processes are intact. There is n o spondylolysis. No lytic or blastic lesion is seen. Tiny anterior and lateral marginal osteophytes a re seen throughout. The disc spaces are maintained. There is no CT evidence of large disc herniation or high-grade central canal stenosis. Lateral disc bulges at L4-L5 contribute to bilateral subarticul ar stenosis and may abut the exiting bilateral L4 nerve roots. The visualized sacrum and bony pelvis appear intact. The paraspinous soft tissues are normal as imaged. The psoas muscles are normal. There is mild atherosclerotic calcification of the abdominal aorta, which is normal in caliber. No retrope ritoneal lymphadenopathy is seen. The partially imaged spleen is heterogeneous. No enhancing lesion i s suggested on the postcontrast images. IMPRESSION: No acute bony abnormality is seen involving the lumbar spine. ACT 112: Negative or not required by law. Dictated: 03/31/2024 12:56 PM Transcribed: 03/31/2024 1:12 PM Bryon [id number] [email or web address] Electronically signed by: Hola Hinkle M.D. 03/31/2024 2:48 PM
[2024-04-01 06:55] LABS: Hemoglobin 10.8 g/dl (14.0-18.0); Mean Corpuscular Hgb Conc 30.9 g/dL (32.0-36.0); Mean Corpuscular Volume 84.3 fL (80.0-100.0); Mean Platelet Volume 11.2 fL (9.4-12.4); Platelet Count 457 K/uL (130-400); RDW Coefficient of Variation 14.8 % (11.5-14.5); RDW Standard Deviation 44.7 fL (36.4-46.3); Red Blood Count 4.15 M/uL (4.70-6.10); White Blood Count 14.33 K/ul (4.8-10.8)
[2024-04-01 07:18] LABS: Albumin Globulin Ratio 0.7 (0.9-2); Albumin Level 3.3 gm/dl (3.4-5.0); BUN Creatinine Ratio 18.6 (10-20); Bilirubin,Total 0.7 mg/dl (0.2-1.0); Calcium 8.4 mg/dl (8.6-10.3); Creatinine Clr Calc Pharmacy 71.6 ml/min; Globulin 4.8 gm/dl (2.5-4.0); Potassium 4.2 mmol/L (3.5-5.1); Total Protein 8.1 gm/dl (6.0-8.3)
--- NOTE | 2024-04-01 08:40 | Hospitalist Progress Note ---
Date of Service April 01, 2024 Assessment & Plan (1) Severe sepsis: (2) Acute UTI: Plan The patient is a 48-year-old male who presented to the hospital with generalized fatigue/lethargy, recent history of hospitalization with Klebsiella UTI with history of self cath at home, Medrano catheter placed with recent hospitalization, Medrano catheter changed on 03/28 Severe sepsis CAUTI, POA Complicated urinary tract infection History of bilateral hydroureteronephrosis status post Medrano placement Urine culture + Pseudomonas/Klebsiella, both susceptible to IV cefepime Continue IV cefepime for at least 7 days until 04/05, follow-up with urology outpatient Chronic leukocytosis noted, continue to monitor Patient continues to complain of lower back pain with lumbar tenderness CT lumbar spine was negative for any acute finding/abscess on 03/31 Hx chronic diastolic heart failure: EF 50-55%, continue metoprolol Hx CAD s/p stent: Continue DAPT/statin Hx orthostatic hypotension: Continue midodrine Hx DM2: A1c 7.9 last October 2023, SSI/sugars controlled for now Hx anxiety/mood disorder: Continue Wellbutrin/Klonopin 04/01: Patient remains medically stable. Awaiting placement to a rehab facility. Anticipated discharge 04/03 Full code DVT prophylaxis: Lovenox Time spent evaluating patient, direct bedside care, chart review, placing orders, interpretation of diagnostic studies, discussion with consultants, patient, and family members, as well as other required patient management activities is 50 minutes Admission and Anticipated Discharge Date Admission Date: March 28, 2024 Supervising Physician Co-Signing Physician Notes Plan of care discussed with above provider Continue IV antibiotics for the UTI Plan to discharge to rehab once placement is available I have reviewed the advanced practitioner's documentation, and I agree with, and take responsibility for the plan of care Subjective Patient seen and examined. Still with complaints of lower back pain. Reports this is chronic but it has been worsening throughout the hospitalization. Reports pain is better since Oxy was increased to every 6 hours. Denies any fever/chills overnight. Denies any abdominal pain. Denies any chest pain/shortness of breath. Review of Systems Review of Systems: All systems reviewed & are unremarkable except as noted in HPI & below Physical Exam Constitutional: WD/WN, vitals as above well developed and + ill appearing Eyes: PERRL, conjunctivae normal, anicteric sclerae ENMT: external ear and nose normal, oropharynx normal Neck: trachea midline, no thyromegaly Respiratory: normal respiratory effort, lungs clear to auscultation Cardiovascular: RRR, no murmur, no edema Gastrointestinal (Abdomen): normal bowel sounds, soft, nontender, no hepatosplenomegaly Musculoskeletal: no cyanosis or clubbing, extremities motor strength 5/5 Gait: normal gait Skin: no rashes, warm and dry Neurologic: PERRL, EOMI, accommodation nl, no face palsy, no dysarthria Psychiatric: A+Ox3, euthymic affect Results & Data Results & Data Vital Signs (Past 12 Hours) Vital Signs Temp Pulse Pulse Pulse Resp BP Pulse Ox 04/01/24 07:31 04/01/24 07:20 36.6 C 95 H 18 136/88 99 04/01/24 01:53 36.7 C 92 H 16 112/76 98 03/31/24 22:24 36.9 C 93 H 18 129/86 97 03/31/24 21:58 92 H O2 Del Method 04/01/24 07:31 Room Air 04/01/24 07:20 Room Air 04/01/24 01:53 Room Air 03/31/24 22:24 Room Air 03/31/24 21:58 Laboratory Results Laboratory Results WBC 14.33 K/ul (4.8-10.8) H 04/01/24 05:43 RBC 4.15 M/uL (4.70-6.10) L 04/01/24 05:43 Hgb 10.8 g/dl (14.0-18.0) L 04/01/24 05:43 Hct 35.0 % (42.0-52.0) L 04/01/24 05:43 MCV 84.3 fL (80.0-100.0) 04/01/24 05:43 MCH 26.0 pg (25.0-34.0) 04/01/24 05:43 MCHC 30.9 g/dL (32.0-36.0) L 04/01/24 05:43 RDW Std Deviation 44.7 fL (36.4-46.3) 04/01/24 05:43 RDW Coeff of Pancho 14.8 % (11.5-14.5) H 04/01/24 05:43 Plt Count 457 K/uL (130-400) H 04/01/24 05:43 MPV 11.2 fL (9.4-12.4) 04/01/24 05:43 Immature Gran % (Auto) 1.4 % 03/31/24 06:35 Neut % (Auto) 63.9 % 03/31/24 06:35 Lymph % (Auto) 18.0 % 03/31/24 06:35 [place] % (Auto) 11.7 % 03/31/24 06:35 Eos % (Auto) 3.8 % 03/31/24 06:35 Baso % (Auto) 1.2 % 03/31/24 06:35 Neut # (Auto) 10.07 K/uL (1.40-6.50) H 03/31/24 06:35 Lymph # (Auto) 2.84 K/uL (1.20-3.40) 03/31/24 06:35 [place] # (Auto) 1.85 K/uL (0.11-0.59) H 03/31/24 06:35 Eos # (Auto) 0.60 K/uL (0.00-0.50) H 03/31/24 06:35 Baso # (Auto) 0.19 K/uL (0.00-0.20) 03/31/24 06:35 Immature Gran # (Auto) 0.22 K/uL (0.01-0.20) H 03/31/24 06:35 ESR 74 mm/hr (0-15) H 03/31/24 06:35 PT 10.7 Seconds (9.0-12.0) 03/28/24 17:49 INR 1.0 (0.9-1.1) 03/28/24 17:49 Sodium 132 mmol/L (136-145) L 04/01/24 05:43 Potassium 4.2 mmol/L (3.5-5.1) 04/01/24 05:43 Chloride 106 mmol/L (98-107) 04/01/24 05:43 Carbon Dioxide 27 mmol/L (21-32) 04/01/24 05:43 Anion Gap -1 (3-11) L 04/01/24 05:43 BUN 26 mg/dl (6-23) H 04/01/24 05:43 Creatinine 1.40 mg/dl (0.6-1.4) D 04/01/24 05:43 Est Cr Clr Drug Dosing 71.6 ml/min 04/01/24 05:43 eGFR 62.39 04/01/24 05:43 BUN/Creatinine Ratio 18.6 (10-20) 04/01/24 05:43 Glucose 158 mg/dl (70-99(Fasting)) H 04/01/24 05:43 POC Glucose 166 mg/dl (70-99) H 04/01/24 08:21 Lactate 2.0 mmol/L (0.4-2.0) 03/29/24 00:35 Calcium 8.4 mg/dl (8.6-10.3) L 04/01/24 05:43 Magnesium 1.7 mg/dl (1.7-2.4) 03/28/24 19:39 Total Bilirubin 0.7 mg/dl (0.2-1.0) 04/01/24 05:43 AST 14 U/L (13-39) 04/01/24 05:43 ALT 32 U/L (7-52) 04/01/24 05:43 Alkaline Phosphatase 81 U/L (34-104) 04/01/24 05:43 Ammonia 19.0 umol/L (18-72) 03/28/24 21:26 Total Creatine Kinase 35 U/L (30-223) 03/28/24 19:39 Troponin I High Sens 25.7 pg/ml (0-20) H 03/29/24 00:34 B-Natriuretic Peptide 286 pg/ml (0-100) H 03/28/24 17:49 Total Protein 8.1 gm/dl (6.0-8.3) 04/01/24 05:43 Albumin 3.3 gm/dl (3.4-5.0) L 04/01/24 05:43 Globulin 4.8 gm/dl (2.5-4.0) H 04/01/24 05:43 Albumin/Globulin Ratio 0.7 (0.9-2) L 04/01/24 05:43 TSH 3.966 uIu/ml (0.300-4.500) 03/28/24 17:49 Urine Color Dark Yellow 03/28/24 20:04 Urine Appearance Cloudy (Clear) A 03/28/24 20:04 Urine pH 5.5 (4.5-7.5) 03/28/24 20:04 Ur Specific [place] 1.027 (1.000-1.030) 03/28/24 20:04 Urine Protein Trace (Negative) H 03/28/24 20:04 Urine Glucose (UA) 3+ (Negative) H 03/28/24 20:04 Urine Ketones Negative (Negative) 03/28/24 20: Urine Blood Negative (Negative) 03/28/24 20:04 Urine Nitrite Positive (Negative) A 03/28/24 20: Urine Bilirubin Negative (Negative) 03/28/24 20: Urine Urobilinogen Negative (Negative) 03/28/24 20: Ur Leukocyte Esterase 1+ (Negative) H 03/28/24 20:04 Urine WBC (Auto) >50 /hpf (0-5) H 03/28/24 20:04 Urine RBC (Auto) 0-2 /hpf (0-2) 03/28/24 20:04 U Hyaline Cast (Auto) 6-10 /lpf (0-2) H 03/28/24 20:04 U Epithel Cells (Auto) 0-2 /hpf (0-2) 03/28/24 20:04 Urine Bacteria (Auto) 3+ (None Seen) H 03/28/24 20:04 Urine Yeast Present (None Prsent) A 03/28/24 20:04 Impressions Chest X-Ray 03/28/24 18:19 XR chest 1V portable HISTORY: 48 years-old Male weakness acute weakness COMPARISON: 03/13/[address] TECHNIQUE: AP view of the chest FINDINGS: Cardiomediastinal and hilar silhouettes are within normal limits. No pneumothorax, pleural effusion or airspace consolidation. Bones appear grossly intact. IMPRESSION: No acute process. ACT 112: Negative or not required by law. The above report was generated using voice recognition software. It may contain grammatical, syntax or spelling errors. Electronically signed by: Franklin Polanco M.D. 03/28/2024 7:[address] 03/31/24 11:39 CT SCAN OF THE LUMBAR SPINE WITH IV CONTRAST CLINICAL HISTORY: Low back pain. COMPARISON STUDY: Lumbar spine radiographs dated 12/28/2022. CT of the lumbar spine dated 03/29/2010. TECHNIQUE: Following the IV administration of 93 cc of Optiray 320, CT scan of the lumbar spine is performed from the lower thoracic spine to the sacrum. Images are reviewed in the axial, sagittal, and coronal planes. IV contrast was administered without complication. A dose lowering technique was utilized adhering to the principles of ALARA. CT DOSE: 1262.32 mGy.cm FINDINGS: The skeletal structures are well-mineralized. There is no evidence of acute fracture or malalignment involving the lumbar spine. Vertebral body height and alignment are maintained. Mild anterior wedging of T12 is similar to previous. The transverse and spinous processes are intact. There is no spondylolysis. No lytic or blastic lesion is seen. Tiny anterior and lateral marginal osteophytes are seen throughout. The disc spaces are maintained. There is no CT evidence of large disc herniation or high-grade central canal stenosis. Lateral disc bulges at L4-L5 contribute to bilateral subarticular stenosis and may abut the exiting bilateral L4 nerve roots. The visualized sacrum and bony pelvis appear intact. The paraspinous soft tissues are normal as imaged. The psoas muscles are normal. There is mild atherosclerotic calcification of the abdominal aorta, which is normal in caliber. No retroperitoneal lymphadenopathy is seen. The partially imaged spleen is heterogeneous. No enhancing lesion is suggested on the postcontrast images. IMPRESSION: No acute bony abnormality is seen involving the lumbar spine. ACT 112: Negative or not required by law. Dictated: 03/31/2024 12:56 PM Transcribed: 03/31/2024 1:12 PM Bryon [id number] [email or web address] Electronically signed by: Hola Hinkle M.D. 03/31/2024 2:48 PM
[2024-04-02 09:10] LABS: Albumin Globulin Ratio 1.1 (0.9-2); Albumin Level 3.5 gm/dl (3.4-5.0); BUN Creatinine Ratio 31.7 (10-20); Bilirubin,Total 0.5 mg/dl (0.2-1.0); Calcium 8.9 mg/dl (8.6-10.3); Creatinine Clr Calc Pharmacy 96.4 ml/min; Globulin 3.3 gm/dl (2.5-4.0); Potassium 4.6 mmol/L (3.5-5.1); Total Protein 6.8 gm/dl (6.0-8.3)
--- NOTE | 2024-04-02 09:33 | Hospitalist Progress Note ---
Date of Service April 02, 2024 Assessment & Plan (1) Severe sepsis: (2) Acute UTI: Plan The patient is a 48-year-old male who presented to the hospital with generalized fatigue/lethargy, recent history of hospitalization with Klebsiella UTI with history of self cath at home, Medrano catheter placed with recent hospitalization, Medrano catheter changed on 03/28 Severe sepsis CAUTI, POA Complicated urinary tract infection History of bilateral hydroureteronephrosis status post Medrano placement Urine culture + Pseudomonas/Klebsiella, both susceptible to IV cefepime Continue IV cefepime for at least 7 days until 04/05, follow-up with urology outpatient Chronic leukocytosis noted, continue to monitor Patient continues to complain of lower back pain with lumbar tenderness CT lumbar spine was negative for any acute finding/abscess on 03/31 Robaxin started on 04/02 scheduled to hopefully improve pain Patient complains of discomfort around Medrano catheter/excoriation, urology consulted Nursing attempted to reposition Medrano catheter with no improvement in symptoms Hx chronic diastolic heart failure: EF 50-55%, continue metoprolol Hx CAD s/p stent: Continue DAPT/statin Hx orthostatic hypotension: Continue midodrine Hx DM2: A1c 7.9 last October 2023, SSI/sugars controlled for now Hx anxiety/mood disorder: Continue Wellbutrin/Klonopin 04/02: Patient remains medically stable. Awaiting placement to a rehab facility. Anticipated discharge 04/03 Full code DVT prophylaxis: Lovenox Time spent evaluating patient, direct bedside care, chart review, placing orders, interpretation of diagnostic studies, discussion with consultants, patient, and family members, as well as other required patient management activities is 50 minutes Admission and Anticipated Discharge Date Admission Date: March 28, 2024 Supervising Physician Co-Signing Physician Notes Chart reviewed, discussed with above provider. Patient underwent aspiration for persistent priapism by urology Antibiotics changed to levofloxacin to be given for 3 more days to complete the antibiotic course. Awaiting placement I have reviewed the advanced practitioner's documentation, and I agree with, and take responsibility for the plan of care Subjective Patient seen and examined. Still with complaints of lower back pain. Reports this is chronic but it has been worsening throughout the hospitalization. Reports pain is better since Oxy was increased to every 6 hours. Denies any fever/chills overnight. Denies any abdominal pain. Denies any chest pain/shortness of breath. Review of Systems Review of Systems: All systems reviewed & are unremarkable except as noted in HPI & below Physical Exam Constitutional: WD/WN, vitals as above Eyes: PERRL, conjunctivae normal, anicteric sclerae ENMT: external ear and nose normal, oropharynx normal Neck: trachea midline, no thyromegaly Respiratory: normal respiratory effort, lungs clear to auscultation Cardiovascular: RRR, no murmur, no edema Gastrointestinal (Abdomen): normal bowel sounds, soft, nontender, no hepatosplenomegaly Musculoskeletal: no cyanosis or clubbing, extremities motor strength 5/5 Skin: no rashes, warm and dry Neurologic: PERRL, EOMI, accommodation nl, no face palsy, no dysarthria Psychiatric: A+Ox3, euthymic affect Genitourinary: no testicular masses, no penis abnormality (Penis partially erect with discomfort around Medrano catheter) Results & Data Results & Data Vital Signs (Past 12 Hours) Vital Signs Temp Pulse Pulse Resp BP Pulse Ox O2 Del Method 04/02/24 08:30 91 H 04/02/24 07:16 36.8 C 86 18 128/86 98 Room Air 04/02/24 07:11 Room Air 04/02/24 02:20 36.6 C 88 16 133/90 98 Room Air 04/01/24 22:00 36.8 C 99 H 18 127/87 97 Room Air 04/01/24 21:39 100 H Diagnostic Findings Laboratory Results WBC 14.88 K/ul (4.8-10.8) H 04/02/24 07:41 RBC 3.96 M/uL (4.70-6.10) L 04/02/24 07:41 Hgb 10.3 g/dl (14.0-18.0) L 04/02/24 07:41 Hct 33.5 % (42.0-52.0) L 04/02/24 07:41 MCV 84.6 fL (80.0-100.0) 04/02/24 07:41 MCH 26.0 pg (25.0-34.0) 04/02/24 07:41 MCHC 30.7 g/dL (32.0-36.0) L 04/02/24 07:41 RDW Std Deviation 45.1 fL (36.4-46.3) 04/02/24 07:41 RDW Coeff of Pancho 15.0 % (11.5-14.5) H 04/02/24 07:41 Plt Count 468 K/uL (130-400) H 04/02/24 07:41 MPV 11.4 fL (9.4-12.4) 04/02/24 07:41 Immature Gran % (Auto) 3.4 % 04/02/24 07:41 Neut % (Auto) 60.0 % 04/02/24 07:41 Lymph % (Auto) 19.4 % 04/02/24 07:41 [place] % (Auto) 12.1 % 04/02/24 07:41 Eos % (Auto) 4.0 % 04/02/24 07:41 Baso % (Auto) 1.1 % 04/02/24 07:41 Neut # (Auto) 8.95 K/uL (1.40-6.50) H 04/02/24 07:41 Lymph # (Auto) 2.88 K/uL (1.20-3.40) 04/02/24 07:41 [place] # (Auto) 1.80 K/uL (0.11-0.59) H 04/02/24 07:41 Eos # (Auto) 0.59 K/uL (0.00-0.50) H 04/02/24 07:41 Baso # (Auto) 0.16 K/uL (0.00-0.20) 04/02/24 07:41 Immature Gran # (Auto) 0.50 K/uL (0.01-0.20) H 04/02/24 07:41 ESR 74 mm/hr (0-15) H 03/31/24 06:35 PT 10.7 Seconds (9.0-12.0) 03/28/24 17:49 INR 1.0 (0.9-1.1) 03/28/24 17:49 Sodium 136 mmol/L (136-145) 04/02/24 07:41 Potassium 4.6 mmol/L (3.5-5.1) 04/02/24 07:41 Chloride 103 mmol/L (98-107) 04/02/24 07:41 Carbon Dioxide 28 mmol/L (21-32) 04/02/24 07:41 Anion Gap 5 (3-11) 04/02/24 07:41 BUN 33 mg/dl (6-23) H 04/02/24 07:41 Creatinine 1.04 mg/dl (0.6-1.4) D 04/02/24 07:41 Est Cr Clr Drug Dosing 96.4 ml/min 04/02/24 07:41 eGFR 89.12 04/02/24 07:41 BUN/Creatinine Ratio 31.7 (10-20) H 04/02/24 07:41 Glucose 181 mg/dl (70-99(Fasting)) H 04/02/24 07:41 POC Glucose 171 mg/dl (70-99) H 04/02/24 08:09 Lactate 2.0 mmol/L (0.4-2.0) 03/29/24 00:35 Calcium 8.9 mg/dl (8.6-10.3) 04/02/24 07:41 Magnesium 1.7 mg/dl (1.7-2.4) 03/28/24 19:39 Total Bilirubin 0.5 mg/dl (0.2-1.0) 04/02/24 07:41 AST 12 U/L (13-39) L 04/02/24 07:41 ALT 25 U/L (7-52) 04/02/24 07:41 Alkaline Phosphatase 77 U/L (34-104) 04/02/24 07:41 Ammonia 19.0 umol/L (18-72) 03/28/24 21:26 Total Creatine Kinase 35 U/L (30-223) 03/28/24 19:39 Troponin I High Sens 25.7 pg/ml (0-20) H 03/29/24 00:34 B-Natriuretic Peptide 286 pg/ml (0-100) H 03/28/24 17:49 Total Protein 6.8 gm/dl (6.0-8.3) 04/02/24 07:41 Albumin 3.5 gm/dl (3.4-5.0) 04/02/24 07:41 Globulin 3.3 gm/dl (2.5-4.0) 04/02/24 07:41 Albumin/Globulin Ratio 1.1 (0.9-2) 04/02/24 07:41 TSH 3.966 uIu/ml (0.300-4.500) 03/28/24 17:49 Urine Color Dark Yellow 03/28/24 20:04 Urine Appearance Cloudy (Clear) A 03/28/24 20:04 Urine pH 5.5 (4.5-7.5) 03/28/24 20:04 Ur Specific [place] 1.027 (1.000-1.030) 03/28/24 20:04 Urine Protein Trace (Negative) H 03/28/24 20:04 Urine Glucose (UA) 3+ (Negative) H 03/28/24 20:04 Urine Ketones Negative (Negative) 03/28/24 20: Urine Blood Negative (Negative) 03/28/24 20: Urine Nitrite Positive (Negative) A 03/28/24 20: Urine Bilirubin Negative (Negative) 03/28/24 20: Urine Urobilinogen Negative (Negative) 03/28/24 20:04 Ur Leukocyte Esterase 1+ (Negative) H 03/28/24 20:04 Urine WBC (Auto) >50 /hpf (0-5) H 03/28/24 20:04 Urine RBC (Auto) 0-2 /hpf (0-2) 03/28/24 20:04 U Hyaline Cast (Auto) 6-10 /lpf (0-2) H 03/28/24 20:04 U Epithel Cells (Auto) 0-2 /hpf (0-2) 03/28/24 20:04 Urine Bacteria (Auto) 3+ (None Seen) H 03/28/24 20:04 Urine Yeast Present (None Prsent) A 03/28/24 20:04 Impressions Chest X-Ray 03/28/24 18:19 XR chest 1V portable HISTORY: 48 years-old Male weakness acute weakness COMPARISON: 03/13/[address] TECHNIQUE: AP view of the chest FINDINGS: Cardiomediastinal and hilar silhouettes are within normal limits. No pneumothorax, pleural effusion or airspace consolidation. Bones appear grossly intact. IMPRESSION: No acute process. ACT 112: Negative or not required by law. The above report was generated using voice recognition software. It may contain grammatical, syntax or spelling errors. Electronically signed by: Franklin Polanco M.D. 03/28/2024 7:[address] 03/31/24 11:39 CT SCAN OF THE LUMBAR SPINE WITH IV CONTRAST CLINICAL HISTORY: Low back pain. COMPARISON STUDY: Lumbar spine radiographs dated 12/28/2022. CT of the lumbar spine dated 03/29/2010. TECHNIQUE: Following the IV administration of 93 cc of Optiray 320, CT scan of the lumbar spine is performed from the lower thoracic spine to the sacrum. Images are reviewed in the axial, sagittal, and coronal planes. IV contrast was administered without complication. A dose lowering technique was utilized adhering to the principles of ALARA. CT DOSE: 1262.32 mGy.cm FINDINGS: The skeletal structures are well-mineralized. There is no evidence of acute fracture or malalignment involving the lumbar spine. Vertebral body height and alignment are maintained. Mild anterior wedging of T12 is similar to previous. The transverse and spinous processes are intact. There is no spondylolysis. No lytic or blastic lesion is seen. Tiny anterior and lateral marginal osteophytes are seen throughout. The disc spaces are maintained. There is no CT evidence of large disc herniation or high-grade central canal stenosis. Lateral disc bulges at L4-L5 contribute to bilateral subarticular stenosis and may abut the exiting bilateral L4 nerve roots. The visualized sacrum and bony pelvis appear intact. The paraspinous soft tissues are normal as imaged. The psoas muscles are normal. There is mild atherosclerotic calcification of the abdominal aorta, which is normal in caliber. No retroperitoneal lymphadenopathy is seen. The partially imaged spleen is heterogeneous. No enhancing lesion is suggested on the postcontrast images. IMPRESSION: No acute bony abnormality is seen involving the lumbar spine. ACT 112: Negative or not required by law. Dictated: 03/31/2024 12:56 PM Transcribed: 03/31/2024 1:12 PM Bryon [id number] [email or web address] Electronically signed by: Hola Hinkle M.D. 03/31/2024 2:48 PM
[2024-04-02 09:36] LABS: Basophils # (auto) 0.16 K/uL (0.00-0.20); Basophils % (auto) 1.1 %; Eosinophils # (auto) 0.59 K/uL (0.00-0.50); Hematocrit (blood only) 33.5 % (42.0-52.0); Hemoglobin 10.3 g/dl (14.0-18.0); Immature Granulocytes % (auto) 3.4 %; Lymphocytes # (auto) 2.88 K/uL (1.20-3.40); Lymphocytes % (auto) 19.4 %; Mean Corpuscular Hgb Conc 30.7 g/dL (32.0-36.0); Mean Corpuscular Volume 84.6 fL (80.0-100.0); Mean Platelet Volume 11.4 fL (9.4-12.4); Monocytes % (auto) 12.1 %; Neutrophils # (auto) 8.95 K/uL (1.40-6.50); Platelet Count 468 K/uL (130-400); RDW Standard Deviation 45.1 fL (36.4-46.3); Red Blood Count 3.96 M/uL (4.70-6.10); White Blood Count 14.88 K/ul (4.8-10.8)
--- NOTE | 2024-04-02 10:26 | Urology Consultation ---
Date of Consultation April 02, 2024 Assessment & Plan (1) Acute UTI: (2) Urinary retention: (3) Priapism: Plan 48-year-old male who is known to the urologic service as he had history of urinary retention managed with a Medrano catheter. This is been an ongoing issue and he did have a cystoscopy which did not show any obvious obstruction. He is referred for urodynamics but this was postponed due to concern for urinary tract infection. He was taught [facility] at that time. In the interim he has been hospitalized previously and was found to be in retention and had a catheter placed. He most recently was admitted to the hospital on 03/28/2024 due to severe sepsis. Initial white count was 16.9. White count today is 14.8. Creatinine is 1.04 today. Urine culture from 03/28/2024 is growing out Pseudomonas and Klebsiella. The patient is currently on cefepime but sensiti vities were not run for this specific antibiotic on the organisms. He has been having catheter discomfort with apparent repositioning by nursing which has persisted so urology was consulted. Upon examining patient, it was clear that his pain is related to an ischemic priapism that apparently has been lasting for more than 24 hours and potentially weeks according to the patient. I discussed this with him and recommended emergent bedside aspiration. Consent was obtained for corporal aspiration/irrigation of possible penile shunt. Patient is on anticoagulation but this cannot wait to be held. Patient was prepped and draped in a sterile fashion. A dorsal penile block was performed with 10 cc of 1% lidocaine. An ABG was taken for a penile blood gas. I then inserted 16-gauge needles at a 90 degree angle in both corpora midshaft. I aspirated out roughly 20 cc of maroon blood. These were irrigated with normal saline. I then elected to inject 500 m grams of phenylephrine over the course of 10 minutes. The patient was hooked up to cardiac monitoring at this time and his pulse and blood pressure remained normal. The penis did detumesced. This was wrapped with gauze and Coban for several minutes to prevent an expanding hematoma and then taken down. There was no expanding hematoma. Penis remained flaccid. Recommendations: Please keep patient n.p.o. for 2 hours. If priapism recurs likely will take him to the OR for shunt. Consent is already been obtained If penis remains soft after 2 hours, patient can have a diet Penis will have some swelling, ecchymosis and may feel somewhat erect due to inflammation and fibrosis. Regarding his UTI, he is on cefepime however both organisms were not checked for this antibiotic specifically. Would suggest switching to an antibiotic that definitively covers both organisms Urology to follow peripherally Greater than 90 minutes was spent treating this patient. History of Present Illness Attending Physician: Duran Soto MD History of Present Illness 48-year-old male who is known to the urologic service as he had history of urinary retention managed with a Medrano catheter. This is been an ongoing issue and he did have a cystoscopy which did not show any obvious obstruction. He is referred for urodynamics but this was postponed due to concern for urinary tract infection. He was taught [facility] at that time. In the interim he has been hospitalized previously and was found to be in retention and had a catheter placed. He most recently was admitted to the hospital on 03/28/2024 due to severe sepsis. Initial white count was 16.9. White count today is 14.8. Creatinine is 1.04 today. Urine culture from 03/28/2024 is growing out Pseudomonas and Klebsiella. The patient is currently on cefepime but sensitivities were not run for this specific antibiotic on the organisms. He has been having catheter discomfort with apparent repositioning by nursing which has persisted so urology was consulted. Upon examination, it was clear that patient had a priapism. He reports he has h ad this for several weeks. Nursing confirms that he is had it for over 24 hours. Allergies Allergy/AdvReac Type Severity Reaction Status Date / Time adhesive Allergy Intermediate Contact Verified 12/23/23 10:39 dermatitis latex Allergy Mild RASH Verified 12/23/23 10:39 tramadol Allergy Unknown n/v Verified 12/23/23 10:39 Home Medications Medication Instructions Recorded Confirmed Type gabapentin 300 mg capsule 300 mg PO TID 06/16/22 03/28/24 History montelukast 10 mg tablet 10 mg PO QAM 06/16/22 03/28/24 History pantoprazole 40 mg tablet,delayed 40 mg PO QAM 06/16/22 03/28/24 History release aspirin 81 mg tablet,delayed 81 mg PO QAM 01/31/23 03/28/24 History release buspirone 10 mg tablet 10 mg PO BID 01/31/23 03/28/24 History cholecalciferol (vitamin D3) 25 25 mcg PO QDL 01/31/23 03/28/24 History mcg (1,000 unit) capsule (Vitamin D3) duloxetine 60 mg capsule,delayed 60 mg PO QAM 01/31/23 03/28/24 History release atorvastatin 40 mg tablet 40 mg PO QAM 10/19/23 03/28/24 History bupropion HCl 450 mg 24 hr tablet, 450 mg PO QAM 10/19/23 03/28/24 History extended release clonazepam 0.5 mg tablet 0.5 mg PO BID PRN Anxiety 10/19/23 03/28/24 History clopidogrel 75 mg tablet 75 mg PO DAILYBL 10/19/23 03/28/24 History dulaglutide 1.5 mg/0.5 mL 1.5 mg subcut TU 10/19/23 03/28/24 History subcutaneous pen injector (Trulicity) duloxetine 30 mg capsule,delayed 30 mg PO QAM 10/19/23 03/28/24 History release magnesium oxide 400 mg (241.3 mg 400 mg PO QAM 10/19/23 03/28/24 History magnesium) tablet oxybutynin chloride 10 mg 10 mg PO QAM 10/19/23 03/28/24 History tablet,extended release 24 hr ramelteon 8 mg tablet 8 mg PO HS PRN Sleep 10/19/23 03/28/24 History lidocaine HCl 2 % mucosal jelly in 0.5 ml EXT BID PRN catheter Pain 10/26/23 03/28/24 Rx applicator #125 mL L.acidop,casei,lactis,rham-B.lact,ela 1 cap PO DAILY #10 caps 11/15/23 03/28/24 Rx 625 mg (10 billion cell) capsule (Advanced Probiotic) midodrine 5 mg tablet 5 mg PO BID #30 tabs 11/15/23 03/28/24 Rx nicotine 14 mg/24 hr daily 1 patch transdermal DAILY #14 ea 11/15/23 03/28/24 Rx transdermal patch polyethylene glycol 3350 17 gram 17 g PO DAILY #14 ea 11/15/23 03/28/24 Rx oral powder packet (Miralax) sennosides 8.6 mg-docusate sodium 1 tab PO QAM #30 tabs 11/15/23 03/28/24 Rx 50 mg tablet (Senokot-S) thiamine HCl (vitamin B1) 100 mg 100 mg PO QAM #30 tabs 11/15/23 03/28/24 Rx tablet amoxicillin 875 mg-potassium 1 tab PO BID 5 days #10 tabs 03/17/24 03/28/24 Rx clavulanate 125 mg tablet metoprolol succinate 50 mg 50 mg PO BID #60 tabs 03/17/24 03/28/24 Rx tablet,extended release 24 hr Patient History Medical History Noncompliance Central retinal artery occlusion, left eye Diabetic peripheral neuropathy Surgical History S/P arthroscopic knee surgery History of dental surgery Family History Other Cancer Diabetes Hypertension Social History Smoking Status: Never smoker Tobacco Type: Smokeless Tobacco (Dip or Chew) Second Hand Exposure: No; Do You Dip or Chew Tobacco: Yes; Hx Alcohol Use: Yes Alcohol type: beer Hx Substance Use: Yes Last Used Substance: Days (ago) Last Used Substance Other:: Urine tox came back positive for ecstasy, benzos, and marijuana Preferred Language: Turkmen Communication Ability: Effective Customer Service Professional Required: No Beliefs That Will Affect Care: None Current Living Situation: Family Current Living Situation Comment: with parents Other Information That Helps Us Care for You: No Feels Safe at Home: Yes Safety Concerns: Feels Safe At This Time Assistive Devices: Cane and Walker Physical Exam Physical Exam: General: Alert and oriented, no acute distress HEENT: Normocephalic, mucous membranes moist Pulmonary: Nonlabored respirations Abdomen: Nondistended : Circumcised phallus with orthotopic meatus with a Medrano catheter in place. Patient has an erection consistent with priapism. Testicles descended cosme aterally. Extremities: Moves all 4 spontaneously Neuro: No gross deficits Skin: Warm, dry, no rashes noted Results & Data Vital Signs (Past 12 Hours) Vital Signs Temp Pulse Pulse Resp BP Pulse Ox O2 Del Method 04/02/24 08:30 91 H 04/02/24 07:16 36.8 C 86 18 128/86 98 Room Air 04/02/24 07:11 Room Air 04/02/24 02:20 36.6 C 88 16 133/90 98 Room Air PG Care Time/CCT Total # of Minutes Spent Total Time Spent with Patient: Total time spent is greater than 50% in coordination of care (as documented) at patient's floor/unit and/or counseling patient: Coding Level of Care Code 08272 IN/OBS CONSULT LVL 5,80M Diagnoses Acute UTI N39.0 Urinary retention R33.9 Priapism N48.30
[2024-04-02] MEDS ORDERED: PHENYLEPHRINE 100MCG/ML 5ML SYR ITC PRN (11:13)
[2024-04-02] MEDS: LIDOCAINE 1% LOCAL 20 ML VIAL ONE (11:31)
[2024-04-02] MEDS: levoFLOXacin/D5W 750 MG/150 ML BAG IV SCH (12:47)
[2024-04-02] MEDS: METHOCARBAMOL 500 MG TABLET PO SCH (13:11)
[2024-04-03 06:29] LABS: Hematocrit (blood only) 34.5 % (42.0-52.0); Mean Corpuscular Hgb Conc 31.9 g/dL (32.0-36.0); Mean Corpuscular Volume 81.6 fL (80.0-100.0); Mean Platelet Volume 10.9 fL (9.4-12.4); Platelet Count 503 K/uL (130-400); RDW Coefficient of Variation 15.1 % (11.5-14.5); Red Blood Count 4.23 M/uL (4.70-6.10); White Blood Count 17.92 K/ul (4.8-10.8)
[2024-04-03 06:39] LABS: BUN Creatinine Ratio 27.3 (10-20); Calcium 9.3 mg/dl (8.6-10.3); Creatinine Clr Calc Pharmacy 91.1 ml/min; Potassium 4.6 mmol/L (3.5-5.1)
--- NOTE | 2024-04-03 11:58 | Urology Progress Note ---
Date of Service April 03, 2024 Assessment & Plan (1) Priapism: (2) Acute UTI: (3) Urinary retention: Plan 1. Priapism S/P bedside aspiration and phenylephrine injection on 04/02 No evidence of recurrent priapism on exam this morning Penis will have some swelling, ecchymosis and may feel somewhat erect due to inflammation and fibrosis Continue to monitor closely for return of priapism 2. Acute UTI Urine culture grew Pseudomonas and Klebsiella Blood cultures negative Continue antibiotic therapy - antibiotics were changed to Levofloxacin 04/02 3. Urinary retention Medrano catheter in place for management of retention Patient does intermittent self catheterization at home, but prefers to maintain Medrano catheter for now Urology will follow. Please call with any questions/concerns. Update- Pt reassessed at bedside with Dr. Macias There was concern of recurrent priapism on exam this afternoon Discussed with patient recommendation for emergent bedside aspiration and phenylephrine injection- he was agreeable See attending addendum for further details Admission and Anticipated Discharge Date Admission Date: March 28, 2024 Supervising Physician Co-Signing Physician Notes On afternoon rounds, patient's priapism had recurred. Risk and benefits discussed and he agreed to another bedside irrigation. Patient was prepped and draped in sterile fashion. A dorsal penile block was given with 10 cc of 1% lidocaine plain. An 18-gauge needle was inserted and 90 degree angle in the midshaft of the right side the penis and roughly 10 cc of dark maroon blood was aspirated. He was hooked up to cardiac monitoring and 500 mcg of phenylephrine were given over a 10 to 15-minute period. Vitals remained stable. Penis detumesced. Will monitor patient. Will need to cancel discharge. I spoke in my partners on-call tonight that if this recurs he may very well require a shunt. Patient did have lunch at noon today Subjective Pt seen at bedside this morning Awake and resting in bed on arrival No acute distress Pt denies return of full erection He does report mild penile discomfort and swelling, but not severe/persistent pain Medrano intact draining yellow urine Review of Systems Constitutional: as per Subjective / HPI Gastrointestinal: as per Subjective / HPI Genitourinary: + as per Subjective / HPI Physical Exam Physical Exam: General: Alert and oriented, no acute distress HEENT: Normocephalic Pulmonary: Nonlabored respirations Abdomen: Nondistended : Medrano intact. No evidence of recurrent priapism. Mild penile edema and ecchymosis noted. Mildly tender with palpation. Extremities: Moves all 4 spontaneously Neuro: No gross deficits Skin: Warm, dry, no rashes noted Results & Data Vital Signs (Past 12 Hours) Vital Signs Temp Pulse Pulse Resp BP BP Pulse Ox 04/03/24 11:29 37.1 C 97 H 18 126/83 99 04/03/24 08:11 36.9 C 92 H 18 133/88 99 04/03/24 07:15 79 04/03/24 07:14 94 H 04/03/24 04:13 37.3 C 90 19 152/61 H 97 O2 Del Method 04/03/24 11:29 Room Air 04/03/24 08:11 Room Air 04/03/24 07:15 04/03/24 07:14 04/03/24 04:13 Room Air PG Care Time/CCT Total # of Minutes Spent Total Time Spent with Patient: Total time spent is greater than 50% in coordination of care (as documented) at patient's floor/unit and/or counseling patient: Coding Level of Care Code 94645 SUB INP/OBS CARE 3/50MIN Diagnoses Priapism N48.30 Acute UTI N39.0 Urinary retention R33.9
[2024-04-03] MEDS ORDERED: PHENYLEPHRINE 100MCG/ML 5ML SYR IV STA (14:18)
--- NOTE | 2024-04-03 14:38 | Hospitalist Progress Note ---
Date of Service April 03, 2024 Assessment & Plan (1) Severe sepsis: (2) Acute UTI: Plan The patient is a 48-year-old male who presented to the hospital with generalized fatigue/lethargy, recent history of hospitalization with Klebsiella UTI with history of self cath at home, Pierce catheter placed with recent hospitalization, Pierce catheter changed on 03/28 Severe sepsis CAUTI, POA Complicated urinary tract infection History of bilateral hydroureteronephrosis status post Pierce placement Urine culture + Pseudomonas/Klebsiella, IV antibiotic transitioned to IV Levaquin, will complete 10 day course Chronic leukocytosis noted, continue to monitor Patient continues to complain of lower back pain with lumbar tenderness CT lumbar spine was negative for any acute finding/abscess on 03/31 Robaxin started on 04/02 scheduled to hopefully improve pain Patient complains of discomfort around Pierce catheter/excoriation, urology consulted Priapism s/p emergent aspiration at bedside on 04/02 urology following - they feel priapism is coming back and going to inj phenylephrine await further urology recs and clearance prior to d/c hold gabapentin for now as ADR is priapism Hx chronic diastolic heart failure: EF 50-55%, continue metoprolol Hx CAD s/p stent: Continue DAPT/statin Hx orthostatic hypotension: Continue midodrine Hx DM2: A1c 7.9 last October 2023, SSI/sugars controlled for now Hx anxiety/mood disorder: Continue Wellbutrin/Klonopin DVT prophylaxis: Lovenox - place on hold due to priapism FULL CODE PCP: Ruben Gordillo Dispo: pt [facility] to be [facility] however they are unable to accept pt, he refused any other referrals be placed; therefore [facility] was arranged. Plan was for d/c today; however urology recommended continued hospitalization due to priapism I spent a total of 55 minutes reviewing notes, outpatient records, labs, medication, coordinating, documenting and providing care for this patient excluding time spent in the performance of separately billed services. Admission and Anticipated Discharge Date Admission Date: March 28, 2024 Supervising Physician Co-Signing Physician Notes Patient seen and examined at bedside. He reports that he is feeling better overall; not in distress Reports that he feels the priapism has improved with interventions Plan to observe next 24 hours and possible discharge home I have reviewed the advanced practitioner's documentation, and I agree with, and take responsibility for the plan of care I spent a total of 20 minutes coordinating, documenting, and providing care for this patient excluding time spent in the performance of separately billed services. All of the aforementioned completed while collaborating with the assigned advanced practitioner for a full treatment plan Subjective Pt with persistent penis pain and bruising. He denies f/c/s, chest pain, sob, n/v/d. He has cath in place draining yellow urine. He has a good appetite. Apparently [facility] is unable to accept him as a patient and he is refusing placement elsewhere. Review of Systems Review of Systems: All systems reviewed & are unremarkable except as noted in HPI & below Physical Exam Physical Exam: Gen: WD/WN, M, appears older than age, NAD, A&O x3 HEENT: Normocephalic, atraumatic, conjunctivae moist, sclerae anicteric, mucous membranes moist. Lung: Clear to Auscultation bilaterally, no wheezes/rales/rhonchi Heart: Regular rate, regular rhythm, no murmurs, rubs, or gallops Abdomen: Soft, NT, ND +BS x 4 Extremities: No edema Skin: Warm, no rash, negative turgor. : Penis edematous, ecchymotic, no evidence of priapism currently pierce draining yellow urine Results & Data Results & Data Vital Signs (Past 12 Hours) Vital Signs Temp Pulse Pulse Resp BP BP Pulse Ox 04/03/24 11:29 37.1 C 97 H 18 126/83 99 04/03/24 08:11 36.9 C 92 H 18 133/88 99 04/03/24 07:15 79 04/03/24 07:14 94 H 04/03/24 04:13 37.3 C 90 19 152/61 H 97 O2 Del Method 04/03/24 11:29 Room Air 04/03/24 08:11 Room Air 04/03/24 07:15 04/03/24 07:14 04/03/24 04:13 Room Air Laboratory Results Short CBC 04/03/24 Range/Units 06:02 WBC 17.92 H (4.8-10.8) K/ul Hgb 11.0 L (14.0-18.0) g/dl Hct 34.5 L (42.0-52.0) % Plt Count 503 H (130-400) K/uL [facility] 04/03/24 06:02 Sodium 135 L Potassium 4.6 Chloride 102 Carbon Dioxide 28 BUN 30 H Creatinine 1.10 Glucose 223 H Calcium 9.3 Diagnostic Findings Short CBC 04/03/24 Range/Units 06:02 WBC 17.92 H (4.8-10.8) K/ul Hgb 11.0 L (14.0-18.0) g/dl Hct 34.5 L (42.0-52.0) % Plt Count 503 H (130-400) K/uL [facility] 04/03/24 06:02 Sodium 135 L Potassium 4.6 Chloride 102 Carbon Dioxide 28 BUN 30 H Creatinine 1.10 Glucose 223 H Calcium 9.3 Medications Administered Current Inpatient Medications Acetaminophen (Acetaminophen 500 Mg Tab) 500 mg PO Q6H PRN PRN Reason: fever/pain Stop: 04/27/24 21:23 Last Admin: 04/02/24 20:14 Dose: 500 mg Aspirin (Aspirin 81 Mg Ectab) 81 mg PO [facility] Stop: 04/28/24 08:59 Last Admin: 04/03/24 08:56 Dose: 81 mg Atorvastatin Calcium ([facility]vastatin 40 Mg Tab) [facility] Stop: 04/28/24 08:59 Last Admin: 04/03/24 08:56 Dose: 40 mg Bupropion HCl (Bupropion Xl 150 Mg Tabcr) 450 mg PO QAM [facility] Stop: 04/28/24 08:59 Last Admin: 04/03/24 08:55 Dose: 450 mg Buspirone HCl (Buspirone 5 Mg Tab) 10 mg PO BID [facility] Stop: 04/28/24 08:59 Last Admin: 04/03/24 08:56 Dose: 10 mg Clonazepam (Clonazepam 0.5 Mg Tab) 0.5 mg PO BID PRN PRN Reason: Anxiety Stop: 04/28/24 05:40 Last Admin: 04/02/24 20:15 Dose: 0.5 mg Clopidogrel Bisulfate (Clopidogrel Bisulfate 75 Mg Tab) 75 mg PO DAILYBL [facility] Stop: 04/28/24 10:29 Last Admin: 04/03/24 08:56 Dose: 75 mg Dextrose (Dextrose 50% 50 Ml Syringe) 25 - 50 ml IV UD PRN; Protocol PRN Reason: Hypoglycemia Protocol Stop: 04/27/24 23:02 Duloxetine HCl (Duloxetine Hcl 60 Mg Cap) 60 mg PO QAM [facility] Stop: 04/28/24 08:59 Last Admin: 04/03/24 09:00 Dose: 60 mg Duloxetine HCl (Duloxetine Hcl 30 Mg Cap) 30 mg PO QAM [facility] Stop: 04/28/24 08:59 Last Admin: 04/03/24 08:56 Dose: 30 mg Enoxaparin Sodium (Enoxaparin Inj 40 Mg/0.4 Ml Syr) 40 mg SQ QAM [facility] Stop: 04/28/24 08:59 Last Admin: 04/03/24 09:00 Dose: 40 mg Gabapentin (Gabapentin 300 Mg Cap) 300 mg PO TID [facility] Stop: 04/28/24 08:59 Last Admin: 04/03/24 08:55 Dose: 300 mg Glucagon (Glucagon For Inj 1 Mg Vial) 1 mg SQ UD PRN; Protocol PRN Reason: Hypoglycemia Protocol Stop: 04/27/24 23:02 Glucose (Glucose 40% Gel 15 Gm Tube) 15 - 30 gm PO UD PRN; Protocol PRN Reason: Hypoglycemia Protocol Stop: 04/27/24 23:02 Glucose (Glucose 10 Tab/Tube) 4 - 8 tab PO UD PRN; Protocol PRN Reason: Hypoglycemia Protocol Stop: 04/27/24 23:02 Promethazine HCl (Phenergan) 6.25 mg in 50.25 mls @ 201 mls/hr IV Q6H PRN PRN Reason: Nausea And Vomiting Stop: 04/27/24 21:23 Levofloxacin/Dextrose (Levaquin/D5w) 750 mg in 150 mls @ 100 mls/hr IV Q24H [facility]E; Protocol Stop: 04/07/24 12:29 Last Infusion: 04/03/24 13:45 Dose: Infused Insulin Aspart (Insulin Aspart Per Unit Charge) 0 units SC ACHS [facility] Stop: 04/27/24 23:02 Last Admin: 04/03/24 13:07 Dose: 5 units Melatonin (Melatonin 3 Mg Tab) 3 mg PO HS PRN PRN Reason: Sleep Stop: 04/29/24 00:40 Last Admin: 04/02/24 20:14 Dose: 3 mg Methocarbamol (Methocarbamol 500 Mg Tablet) 500 mg PO TID [facility] Stop: 05/02/24 13:59 Last Admin: 04/03/24 08:57 Dose: 500 mg Metoprolol Succinate (Metoprolol Succ 50mg Ext Rel Tab) 50 mg PO BID [facility] Stop: 04/28/24 08:59 Last Admin: 04/03/24 08:58 Dose: 50 mg Miconazole Nitrate (Miconazole Nitrate Powder 85 Gm) 1 appln EXT PRN PRN PRN Reason: AFFECTED AREAS Stop: 04/27/24 23:14 Last Admin: 03/31/24 08:04 Dose: 1 appln Midodrine (Midodrine Hcl 2.5 Mg Tab) 5 mg PO BID@0900,1800 [facility] Stop: 04/28/24 08:59 Last Admin: 04/03/24 08:57 Dose: 5 mg Miscellaneous (Carbohydrates For Hypoglycemia ) 15 - 30 gm PO UD PRN PRN Reason: Hypoglycemia Protocol Stop: 04/27/24 23:02 Miscellaneous (Order Awaiting Action: Penny) 1 each N/A QS [facility] Stop: 04/28/24 07:59 Last Admin: 04/03/24 09:02 Dose: Not Given Miscellaneous (Remove Nicoderm Patch) 1 each N/A DAILY@0859 [facility] Stop: 04/30/24 08:58 Last Admin: 04/03/24 09:02 Dose: 1 each Montelukast Sodium (Montelukast Sodium 10 Mg Tablet) 10 mg PO QAM [facility] Stop: 04/28/24 08:59 Last Admin: 04/03/24 08:57 Dose: 10 mg Nicotine (Nicotine 14 Mg/24 Hr Patch) 1 patch TD DAILY [facility] Stop: 04/28/24 08:59 Last Admin: 04/03/24 08:59 Dose: 1 patch Oxybutynin Chloride (Oxybutynin Chloride Xl 5 Mg Tabcr) 10 mg PO QAM [facility] Stop: 04/28/24 08:59 Last Admin: 04/03/24 08:57 Dose: 10 mg Oxycodone HCl (Oxycodone Hcl Ir 5 Mg Tab (Immediate Release)) 5 mg PO Q6H PRN PRN Reason: Pain Stop: 04/13/24 13:42 Last Admin: 04/03/24 12:02 Dose: 5 mg Pantoprazole Sodium (Pantoprazole 40 Mg Tab) 40 mg PO QAM [facility] Stop: 04/28/24 08:59 Last Admin: 04/03/24 08:58 Dose: 40 mg Polyethylene Glycol (Polyethylene (Miralax) 17 Gm Pack) 17 gm PO DAILY [facility] Stop: 04/28/24 08:59 Last Admin: 04/03/24 09:01 Dose: Not Given Senna/Docusate Sodium (Docusate Sodium/Senna 50/8.6mg Tab) 1 tab PO QAM [facility] Stop: 04/28/24 08:59 Last Admin: 04/03/24 09:00 Dose: Not Given Thiamine HCl (Thiamine Hcl 100 Mg Tab) 100 mg PO QAM [facility] Stop: 04/28/24 08:59 Last Admin: 04/03/24 09:01 Dose: 100 mg
[2024-04-03] MEDS ORDERED: LIDOCAINE 2% 2 ML VIAL/AMP(20MG/ML) INFIL ONE (15:05)
[2024-04-03] MEDS ORDERED: PHENYLEPHRINE 100MCG/ML 5ML SYR ITC PRN (15:09)
[2024-04-03] MEDS ORDERED: LIDOCAINE 2% LOCAL 20 ML VIAL INFIL ONE (15:15)
[2024-04-03] MEDS: LIDOCAINE 1% LOCAL 20 ML VIAL ONE (15:30)
[2024-04-03] MEDS: PHENYLEPHRINE ITC PRN (15:30)
--- NOTE | 2024-04-03 21:56 | Communication Note ---
Date of Service: April 03, 2024 Patient visited at the bedside at approximately 9:50 PM this evening. Patient denies any pain in his genitals or penis. On exam the patient is noted to have a semirigid penile shaft with ecchymosis, however the patient notes that this has markedly decreased since his most recent procedure with Dr. Macias. Again the patient denies any pain. Will continue to monitor. Patient visited again at bedside at approximately 5:00 AM. He denies any pain in his genitals or penis. The patient again is noted to have a semirigid penile shaft with ecchymosis which appears to be somewhat decreased in what I noted during my previous exam. Again, the patient notes that this is markedly decreased following his procedure by Dr. Macias.
[2024-04-04 08:32] LABS: Basophils # (auto) 0.28 K/uL (0.00-0.20); Basophils % (auto) 1.2 %; Eosinophils # (auto) 0.56 K/uL (0.00-0.50); Eosinophils % (auto) 2.5 %; Hematocrit (blood only) 34.3 % (42.0-52.0); Hemoglobin 10.9 g/dl (14.0-18.0); Immature Granulocytes % (auto) 3.5 %; Lymphocytes # (auto) 4.33 K/uL (1.20-3.40); Mean Corpuscular Hgb Conc 31.8 g/dL (32.0-36.0); Mean Corpuscular Volume 81.9 fL (80.0-100.0); Mean Platelet Volume 10.8 fL (9.4-12.4); Monocytes # (auto) 2.52 K/uL (0.11-0.59); Neutrophils # (auto) 14.34 K/uL (1.40-6.50); Neutrophils % (auto) 62.8 %; Platelet Count 455 K/uL (130-400); RDW Coefficient of Variation 15.3 % (11.5-14.5); RDW Standard Deviation 44.3 fL (36.4-46.3); Red Blood Count 4.19 M/uL (4.70-6.10); White Blood Count 22.83 K/ul (4.8-10.8)
--- NOTE | 2024-04-04 08:39 | Urology Progress Note ---
Date of Service April 04, 2024 Assessment & Plan (1) Priapism: (2) Acute UTI: (3) Urinary retention: Plan 1. Priapism S/P bedside aspiration and phenylephrine injection on 04/02 and again 04/03 due to recurrence Patient was examined at bedside this morning with Dr. Beatty. On exam, he does feel somewhat erect/rigid. Will remove Medrano catheter this morning and monitor as this may be causing stimulation- see attending addendum for further details 2. Acute UTI Urine culture grew Pseudomonas and Klebsiella Blood cultures negative Continue antibiotic therapy - antibiotics were changed to Levofloxacin 04/02 3. Urinary retention Medrano catheter has been in place for management of retention Will remove catheter this morning and patient can resume intermittent self catheterizations Urology will follow. Admission and Anticipated Discharge Date Admission Date: March 28, 2024 Supervising Physician Co-Signing Physician Notes Patient with recurrent priapism over the past 48 hours This all occurred after placement of an indwelling Medrano catheterI wonder if that stimulus from the catheter is causing the response Today he still has a moderately tumesced phallus He is not complaining of pain aside from the location of his prior irrigations He has some bruising We have elected to initially remove the catheter to see if this resolves some of his underlying issues He can perform CIC If the priapism does not resolve shortly, I think we may have to irrigate again. Low-dose sildenafil at times can help with stuttering priapism of this type I would try to avoid a shunt if at all possible Subjective Pt seen at bedside this morning Awake and resting in bed on arrival No acute distress On exam, penile shaft feels somewhat erect/semirigid this morning Penile shaft with ecchymosis and edema as expected Reports mild penile discomfort, mostly with palpation/manipulation Medrano intact and draining yellow urine Review of Systems Constitutional: as per Subjective / HPI Gastrointestinal: as per Subjective / HPI Genitourinary: + as per Subjective / HPI Physical Exam Physical Exam: General: Alert and oriented, no acute distress HEENT: Normocephalic Pulmonary: Nonlabored respirations Abdomen: Nondistended : Medrano intact. Semirigid penile shaft with ecchymosis and mild penile edema. Mildly tender with palpation. Neuro: No gross deficits Skin: Warm, dry, no rashes noted Results & Data Vital Signs (Past 12 Hours) Vital Signs Temp Pulse Pulse Resp BP BP Pulse Ox 04/04/24 08:28 36.8 C 95 H 18 139/90 99 04/04/24 07:01 90 04/04/24 03:58 36.9 C 89 18 150/90 H 97 04/04/24 03:14 95 H 04/03/24 22:42 36.9 C 89 18 125/85 98 O2 Del Method 04/04/24 08:28 Room Air 04/04/24 07:01 04/04/24 03:58 Room Air 04/04/24 03:14 04/03/24 22:42 Room Air PG Care Time/CCT Total # of Minutes Spent Total Time Spent with Patient: Total time spent is greater than 50% in coordination of care (as documented) at patient's floor/unit and/or counseling patient: Coding Level of Care Code 63277 SUB INP/OBS CARE 2/35MIN Diagnoses Priapism N48.30 Acute UTI N39.0 Urinary retention R33.9
[2024-04-04 09:15] LABS: Calcium 9.1 mg/dl (8.6-10.3); Creatinine Clr Calc Pharmacy 96.4 ml/min; Potassium 4.1 mmol/L (3.5-5.1)
[2024-04-04] MEDS: LIDOCAINE 1% LOCAL 20 ML VIAL ONE (13:27)
[2024-04-04] MEDS: LIDOCAINE 1% LOCAL 20 ML VIAL INJ ONE (14:37)
--- NOTE | 2024-04-04 15:33 | Hospitalist Progress Note ---
Date of Service April 04, 2024 Assessment & Plan (1) Severe sepsis: (2) Acute UTI: Plan The patient is a 48-year-old male who presented to the hospital with generalized fatigue/lethargy, recent history of hospitalization with Klebsiella UTI with history of self cath at home, Pierce catheter placed with recent hospitalization, Pierce catheter changed on 03/28 Severe sepsis CAUTI, POA Complicated urinary tract infection History of bilateral hydroureteronephrosis status post Pierce placement Urine culture + Pseudomonas/Klebsiella, IV antibiotic transitioned to IV Levaquin, will complete 10 day course Chronic leukocytosis noted, continue to monitor Patient continues to complain of lower back pain with lumbar tenderness CT lumbar spine was negative for any acute finding/abscess on 03/31 Robaxin started on 04/02 scheduled to hopefully improve pain Patient complains of discomfort around Pierce catheter/excoriation, urology consulted Pierce removed on 04/04 as per urology, plan for self cath as he used to do previously Priapism s/p emergent aspiration at bedside on 04/02 urology following - they feel priapism is coming back and going to inj phenylephrine repeat aspiration on 04/03, pt with slight recurrence today and pt refusing bedside aspiration NPO after midnight in event he needs to go to OR in a.m. hold gabapentin for now as ADR is priapism Hx chronic diastolic heart failure: EF 50-55%, continue metoprolol Hx CAD s/p stent: Continue DAPT/statin Hx orthostatic hypotension: Continue midodrine Hx DM2: A1c 7.9 last October 2023, SSI/sugars controlled for now Hx anxiety/mood disorder: Continue Wellbutrin/Klonopin DVT prophylaxis: Lovenox - place on hold due to priapism FULL CODE PCP: Ruben Gordillo Dispo: pt wanted to be d/c to [facility] however they are unable to accept pt, he refused any other referrals be placed; therefore [facility] was arranged. Plan was for d/c on 04/03; however urology recommended continued hospitalization due to priapism I spent a total of 48 minutes reviewing notes, outpatient records, labs, medication, coordinating, documenting and providing care for this patient excluding time spent in the performance of separately billed services. Admission and Anticipated Discharge Date Admission Date: March 28, 2024 Supervising Physician Co-Signing Physician Notes Patient seen and examined at bedside. He reports that he is feeling better overall; not in distress Reports that he feels the priapism has improved with interventions Plan to observe next 24 hours and possible discharge home I have reviewed the advanced practitioner's documentation, and I agree with, and take responsibility for the plan of care I spent a total of 20 minutes coordinating, documenting, and providing care for this patient excluding time spent in the performance of separately billed services. All of the aforementioned completed while collaborating with the assigned advanced practitioner for a full treatment plan Subjective Pt reports penile pain. He is upset regarding his current situation. Denies f/c/s, chest pain, n/v/d. he is upset his breakfast has been held the past 3 days. Review of Systems Review of Systems: All systems reviewed & are unremarkable except as noted in HPI & below Physical Exam Physical Exam: Gen: WD/WN, M, appears older than age, NAD, A&O x3 HEENT: Normocephalic, atraumatic, conjunctivae moist, sclerae anicteric, mucous membranes moist. Lung: Clear to Auscultation bilaterally, no wheezes/rales/rhonchi Heart: Regular rate, regular rhythm, no murmurs, rubs, or gallops Abdomen: Soft, NT, ND +BS x 4 Extremities: No edema Skin: Warm, no rash, negative turgor. : Penis edematous, ecchymotic, no evidence of priapism currently pierce draining yellow urine Results & Data Results & Data Vital Signs (Past 12 Hours) Vital Signs Temp Pulse Pulse Resp BP BP Pulse Ox 04/04/24 14:49 92 H 04/04/24 11:45 37.0 C 91 H 18 132/89 99 04/04/24 08:28 36.8 C 95 H 18 139/90 99 04/04/24 07:01 90 04/04/24 03:58 36.9 C 89 18 150/90 H 97 O2 Del Method 04/04/24 14:49 04/04/24 11:45 Room Air 04/04/24 08:28 Room Air 04/04/24 07:01 04/04/24 03:58 Room Air Laboratory Results Short CBC 04/04/24 Range/Units 08:01 WBC 22.83 H (4.8-10.8) K/ul Hgb 10.9 L (14.0-18.0) g/dl Hct 34.3 L (42.0-52.0) % Plt Count 455 H (130-400) K/uL BMP 04/04/24 08:01 Sodium 135 L Potassium 4.1 Chloride 101 Carbon Dioxide 27 BUN 27 H Creatinine 1.04 Glucose 185 H Calcium 9.1 Medications Administered Current Inpatient Medications Acetaminophen (Acetaminophen 500 Mg Tab) 500 mg PO Q6H PRN PRN Reason: fever/pain Stop: 04/27/24 21:23 Last Admin: 04/03/24 20:38 Dose: 500 mg Aspirin (Aspirin 81 Mg Ectab) 81 mg PO [facility] Stop: 04/28/24 08:59 Last Admin: 04/04/24 08:18 Dose: 81 mg Atorvastatin Calcium (Atorvastatin 40 Mg Tab) 40 mg PO [facility] Stop: 04/28/24 08:59 Last Admin: 04/04/24 08:15 Dose: 40 mg Bupropion HCl (Bupropion Xl 150 Mg Tabcr) 450 mg PO [facility] Stop: 04/28/24 08:59 Last Admin: 04/04/24 08:14 Dose: 450 mg Buspirone HCl (Buspirone 5 Mg Tab) 10 mg PO BID [facility] Stop: 04/28/24 08:59 Last Admin: 04/04/24 08:19 Dose: 10 mg Clonazepam (Clonazepam 0.5 Mg Tab) 0.5 mg PO BID PRN PRN Reason: Anxiety Stop: 04/28/24 05:40 Last Admin: 04/03/24 20:38 Dose: 0.5 mg Clopidogrel Bisulfate (Clopidogrel Bisulfate 75 Mg Tab) 75 mg PO DAILYBL [facility] Stop: 04/28/24 10:29 Last Admin: 04/04/24 09:03 Dose: 75 mg Dextrose (Dextrose 50% 50 Ml Syringe) 25 - 50 ml IV UD PRN; Protocol PRN Reason: Hypoglycemia Protocol Stop: 04/27/24 23:02 Duloxetine HCl (Duloxetine Hcl 60 Mg Cap) 60 mg PO [facility] Stop: 04/28/24 08:59 Last Admin: 04/04/24 08:19 Dose: 60 mg Duloxetine HCl (Duloxetine Hcl 30 Mg Cap) 30 mg PO [facility] Stop: 04/28/24 08:59 Last Admin: 04/04/24 08:17 Dose: 30 mg Enoxaparin Sodium (Enoxaparin Inj 40 Mg/0.4 Ml Syr) 40 mg SQ QAM [facility] Stop: 04/28/24 08:59 Last Admin: 04/03/24 09:00 Dose: 40 mg Gabapentin (Gabapentin 300 Mg Cap) 300 mg PO TID [facility] Stop: 04/28/24 08:59 Last Admin: 04/03/24 15:20 Dose: Not Given Glucagon (Glucagon For Inj 1 Mg Vial) 1 mg SQ UD PRN; Protocol PRN Reason: Hypoglycemia Protocol Stop: 04/27/24 23:02 Glucose (Glucose 40% Gel 15 Gm Tube) 15 - 30 gm PO UD PRN; Protocol PRN Reason: Hypoglycemia Protocol Stop: 04/27/24 23:02 Glucose (Glucose 10 Tab/Tube) 4 - 8 tab PO UD PRN; Protocol PRN Reason: Hypoglycemia Protocol Stop: 04/27/24 23:02 Promethazine HCl (Phenergan) 6.25 mg in 50.25 mls @ 201 mls/hr IV Q6H PRN PRN Reason: Nausea And Vomiting Stop: 04/27/24 21:23 Levofloxacin/Dextrose (Levaquin/D5w) 750 mg in 150 mls @ 100 mls/hr IV Q24H [facility]; Protocol Stop: 04/07/24 12:29 Last Infusion: 04/04/24 14:37 Dose: Infused Insulin Aspart (Insulin Aspart Per Unit Charge) 0 units SC ACHS [facility] Stop: 04/27/24 23:02 Last Admin: 04/04/24 12:50 Dose: 9 units Melatonin (Melatonin 3 Mg Tab) 3 mg PO HS PRN PRN Reason: Sleep Stop: 04/29/24 00:40 Last Admin: 04/03/24 20:38 Dose: 3 mg Methocarbamol (Methocarbamol 500 Mg Tablet) 500 mg PO TID [facility] Stop: 05/02/24 13:59 Last Admin: 04/04/24 12:50 Dose: 500 mg Metoprolol Succinate (Metoprolol Succ 50mg Ext Rel Tab) 50 mg PO BID [facility] Stop: 04/28/24 08:59 Last Admin: 04/04/24 08:20 Dose: 50 mg Miconazole Nitrate (Miconazole Nitrate Powder 85 Gm) 1 appln EXT PRN PRN PRN Reason: AFFECTED AREAS Stop: 04/27/24 23:14 Last Admin: 03/31/24 08:04 Dose: 1 appln Midodrine (Midodrine Hcl 2.5 Mg Tab) 5 mg PO BID@0900,1800 [facility] Stop: 04/28/24 08:59 Last Admin: 04/04/24 08:16 Dose: 5 mg Miscellaneous (Carbohydrates For Hypoglycemia ) 15 - 30 gm PO UD PRN PRN Reason: Hypoglycemia Protocol Stop: 04/27/24 23:02 Miscellaneous (Order Awaiting Action: Ramelteon) 1 each N/A QS [facility] Stop: 04/28/24 07:59 Last Admin: 04/04/24 14:36 Dose: Not Given Miscellaneous (Remove Nicoderm Patch) 1 each N/A DAILY@0859 [facility] Stop: 04/30/24 08:58 Last Admin: 04/04/24 08:14 Dose: 1 each Montelukast Sodium (Montelukast Sodium 10 Mg Tablet) 10 mg PO QAM [facility] Stop: 04/28/24 08:59 Last Admin: 04/04/24 08:15 Dose: 10 mg Nicotine (Nicotine 14 Mg/24 Hr Patch) 1 patch TD DAILY [facility] Stop: 04/28/24 08:59 Last Admin: 04/04/24 08:16 Dose: 1 patch Oxybutynin Chloride (Oxybutynin Chloride Xl 5 Mg Tabcr) 10 mg PO QAM [facility] Stop: 04/28/24 08:59 Last Admin: 04/04/24 08:16 Dose: 10 mg Oxycodone HCl (Oxycodone Hcl Ir 5 Mg Tab (Immediate Release)) 5 mg PO Q6H PRN PRN Reason: Pain Stop: 04/13/24 13:42 Last Admin: 04/04/24 12:52 Dose: 5 mg Pantoprazole Sodium (Pantoprazole 40 Mg Tab) 40 mg PO QAM [facility] Stop: 04/28/24 08:59 Last Admin: 04/04/24 08:18 Dose: 40 mg Phenylephrine HCl (Phenylephrine 100mcg/Ml 5ml Syr) 100 mcg ITC UD PRN PRN Reason: Priapism Stop: 05/03/24 15:08 Polyethylene Glycol (Polyethylene (Miralax) 17 Gm Pack) 17 gm PO DAILY [facility] Stop: 04/28/24 08:59 Last Admin: 04/04/24 08:20 Dose: 17 gm Senna/Docusate Sodium (Docusate Sodium/Senna 50/8.6mg Tab) 1 tab PO [facility] Stop: 04/28/24 08:59 Last Admin: 04/04/24 08:18 Dose: 1 tab Thiamine HCl (Thiamine Hcl 100 Mg Tab) 100 mg PO [facility] Stop: 04/28/24 08:59 Last Admin: 04/04/24 08:20 Dose: 100 mg
[2024-04-05] MEDS ORDERED: Nursing to Pharmacy Communication SCH (05:30)
[2024-04-05] MEDS: INSULIN ASPART PER UNIT CHARGE SC SCH (06:17)
--- NOTE | 2024-04-05 10:09 | Hospitalist Progress Note ---
Date of Service April 05, 2024 Assessment & Plan (1) Severe sepsis: (2) Acute UTI: Plan The patient is a 48-year-old male who presented to the hospital with generalized fatigue/lethargy, recent history of hospitalization with Klebsiella UTI with history of self cath at home, Medrano catheter placed with recent hospitalization, Medrano catheter changed on 03/28 Severe sepsis CAUTI, POA Complicated urinary tract infection History of bilateral hydroureteronephrosis status post Medrano placement Urine culture + Pseudomonas/Klebsiella, IV antibiotic transitioned to IV Levaquin, will complete 10 day course Chronic leukocytosis noted, continue to monitor Patient continues to complain of lower back pain with lumbar tenderness CT lumbar spine was negative for any acute finding/abscess on 03/31 Robaxin started on 04/02 scheduled to hopefully improve pain Patient complains of discomfort around Medrano catheter/excoriation, urology consulted Medrano removed on 04/04 as per urology, plan for self cath as he used to do previously Priapism s/p emergent aspiration at bedside on 04/02 urology following - they feel priapism is coming back and going to inj phenylephrine repeat aspiration on 04/03, pt with slight recurrence today and pt refusing bedside aspiration NPO after midnight in event he needs to go to OR in a.m. hold gabapentin for now as ADR is priapism await urology recommendations Hx chronic diastolic heart failure: EF 50-55%, continue metoprolol Hx CAD s/p stent: Continue DAPT/statin Hx orthostatic hypotension: Continue midodrine Hx DM2: A1c 7.9 last October 2023, SSI/sugars controlled for now Hx anxiety/mood disorder: Continue Wellbutrin/Klonopin DVT prophylaxis: Lovenox - place on hold due to priapism FULL CODE PCP: Ruben Gordillo Dispo: pt wanted to be d/c to [facility] however they are unable to accept pt, he refused any other referrals be placed; therefore [facility] was arranged. Plan was for d/c on 04/03; however urology recommended continued hospitalization due to priapism I spent a total of 44 minutes reviewing notes, outpatient records, labs, medication, coordinating, documenting and providing care for this patient excluding time spent in the performance of separately billed services. Admission and Anticipated Discharge Date Admission Date: March 28, 2024 Supervising Physician Co-Signing Physician Notes Discussed patient with KEILA. Agree with plan. Patient s/p penile shunt for priapism, will monitor overnight, likely dc mervat. Patient is on antibiotics for uti. I have seen and examined the patient and have discussed the case with the provider above. I agree with the assessment and plan as stated. time spent: 20 min. Subjective Pt is sitting up at bedside. He states he is able to urinate on his own. He is unsure the plan regarding his penis. He stil has pain and it is still erect. He denies f/c/s, chest pain, sob, n/v/d. Review of Systems Review of Systems: All systems reviewed & are unremarkable except as noted in HPI & below Physical Exam Physical Exam: Gen: WD/WN, M, appears older than age, sitting up at bedside NAD, A&O x3 HEENT: Normocephalic, atraumatic, conjunctivae moist, sclerae anicteric, mucous membranes moist. Lung: Clear to Auscultation bilaterally, no wheezes/rales/rhonchi Heart: Regular rate, regular rhythm, no murmurs, rubs, or gallops Abdomen: Soft, NT, ND +BS x 4 Extremities: No edema Skin: Warm, no rash, negative turgor. Results & Data Results & Data Vital Signs (Past 12 Hours) Vital Signs Temp Pulse Pulse Resp BP BP Pulse Ox 04/05/24 09:08 87 04/05/24 02:31 36.6 C 86 18 130/87 100 04/05/24 00:15 36.9 C 86 16 124/89 98 04/04/24 23:23 98 H O2 Del Method 04/05/24 09:08 04/05/24 02:31 Room Air 04/05/24 00:15 Room Air 04/04/24 23:23 Medications Administered Current Inpatient Medications Acetaminophen (Acetaminophen 500 Mg Tab) 500 mg PO Q6H PRN PRN Reason: fever/pain Stop: 04/27/24 21:23 Last Admin: 04/04/24 20:17 Dose: 500 mg Aspirin (Aspirin 81 Mg Ectab) [facility] [place] Stop: 04/28/24 08:59 Last Admin: 04/05/24 08:19 Dose: 81 mg Atorvastatin Calcium (Atorvastatin 40 Mg Tab) 40 mg PO QAM [facility] Stop: 04/28/24 08:59 Last Admin: 04/05/24 08:19 Dose: 40 mg Bupropion HCl (Bupropion Xl 150 Mg Tabcr) 450 mg PO QAM [facility] Stop: 04/28/24 08:59 Last Admin: 04/05/24 08:19 Dose: 450 mg Buspirone HCl (Buspirone 5 Mg Tab) 10 mg PO BID [facility] Stop: 04/28/24 08:59 Last Admin: 04/05/24 08:20 Dose: 10 mg Clonazepam (Clonazepam 0.5 Mg Tab) 0.5 mg PO BID PRN PRN Reason: Anxiety Stop: 04/28/24 05:40 Last Admin: 04/04/24 20:16 Dose: 0.5 mg Clopidogrel Bisulfate (Clopidogrel Bisulfate 75 Mg Tab) 75 mg PO DAILYBL [facility] Stop: 04/28/24 10:29 Last Admin: 04/04/24 09:03 Dose: 75 mg Dextrose (Dextrose 50% 50 Ml Syringe) 25 - 50 ml IV UD PRN; Protocol PRN Reason: Hypoglycemia Protocol Stop: 04/27/24 23:02 Duloxetine HCl (Duloxetine Hcl 60 Mg Cap) [facility] [place] Stop: 04/28/24 08:59 Last Admin: 04/05/24 08:20 Dose: 60 mg Duloxetine HCl (Duloxetine Hcl 30 Mg Cap) 30 mg PO QAM [facility] Stop: 04/28/24 08:59 Last Admin: 04/05/24 08:20 Dose: 30 mg Enoxaparin Sodium (Enoxaparin Inj 40 Mg/0.4 Ml Syr) 40 mg SQ QAM [facility] Stop: 04/28/24 08:59 Last Admin: 04/03/24 09:00 Dose: 40 mg Gabapentin (Gabapentin 300 Mg Cap) 300 mg PO TID [facility] Stop: 04/28/24 08:59 Last Admin: 04/03/24 15:20 Dose: Not Given Glucagon (Glucagon For Inj 1 Mg Vial) 1 mg SQ UD PRN; Protocol PRN Reason: Hypoglycemia Protocol Stop: 04/27/24 23:02 Glucose (Glucose 40% Gel 15 Gm Tube) 15 - 30 gm PO UD PRN; Protocol PRN Reason: Hypoglycemia Protocol Stop: 04/27/24 23:02 Glucose (Glucose 10 Tab/Tube) 4 - 8 tab PO UD PRN; Protocol PRN Reason: Hypoglycemia Protocol Stop: 04/27/24 23:02 Promethazine HCl (Phenergan) 6.25 mg in 50.25 mls @ 201 mls/hr IV Q6H PRN PRN Reason: Nausea And Vomiting Stop: 04/27/24 21:23 Levofloxacin/Dextrose (Levaquin/D5w) 750 mg in 150 mls @ 100 mls/hr IV Q24H [facility]; Protocol Stop: 04/07/24 12:29 Last Infusion: 04/04/24 14:37 Dose: Infused Insulin Aspart (Insulin Aspart Per Unit Charge) 0 units SC Q6 [facility] Stop: 05/05/24 05:59 Last Admin: 04/05/24 06:17 Dose: Not Given Melatonin (Melatonin 3 Mg Tab) 3 mg PO HS PRN PRN Reason: Sleep Stop: 04/29/24 00:40 Last Admin: 04/04/24 20:16 Dose: 3 mg Methocarbamol (Methocarbamol 500 Mg Tablet) 500 mg PO TID [facility] Stop: 05/02/24 13:59 Last Admin: 04/05/24 08:20 Dose: 500 mg Metoprolol Succinate (Metoprolol Succ 50mg Ext Rel Tab) 50 mg PO BID [facility] Stop: 04/28/24 08:59 Last Admin: 04/05/24 08:20 Dose: 50 mg Miconazole Nitrate (Miconazole Nitrate Powder 85 Gm) 1 appln EXT PRN PRN PRN Reason: AFFECTED AREAS Stop: 04/27/24 23:14 Last Admin: 03/31/24 08:04 Dose: 1 appln Midodrine (Midodrine Hcl 2.5 Mg Tab) 5 mg PO BID@0900,1800 [facility] Stop: 04/28/24 08:59 Last Admin: 04/05/24 08:20 Dose: 5 mg Miscellaneous (Carbohydrates For Hypoglycemia ) 15 - 30 gm PO UD PRN PRN Reason: Hypoglycemia Protocol Stop: 04/27/24 23:02 Miscellaneous (Order Awaiting Action: Ramelteon) 1 each N/A QS [facility] Stop: 04/28/24 07:59 Last Admin: 04/05/24 08:20 Dose: Not Given Miscellaneous (Remove Nicoderm Patch) 1 each N/A DAILY@0859 [facility] Stop: 04/30/24 08:58 Last Admin: 04/05/24 08:20 Dose: 1 each Montelukast Sodium (Montelukast Sodium 10 Mg Tablet) 10 mg PO QAM [facility] Stop: 04/28/24 08:59 Last Admin: 04/05/24 08:20 Dose: 10 mg Nicotine (Nicotine 14 Mg/24 Hr Patch) 1 patch TD DAILY [facility] Stop: 04/28/24 08:59 Last Admin: 04/05/24 08:20 Dose: 1 patch Oxybutynin Chloride (Oxybutynin Chloride Xl 5 Mg Tabcr) 10 mg PO QAM [facility] Stop: 04/28/24 08:59 Last Admin: 04/05/24 08:20 Dose: 10 mg Oxycodone HCl (Oxycodone Hcl Ir 5 Mg Tab (Immediate Release)) 5 mg PO Q6H PRN PRN Reason: Pain Stop: 04/13/24 13:42 Last Admin: 04/04/24 20:17 Dose: 5 mg Pantoprazole Sodium (Pantoprazole 40 Mg Tab) 40 mg PO QAM [facility] Stop: 04/28/24 08:59 Last Admin: 04/05/24 08:20 Dose: 40 mg Phenylephrine HCl (Phenylephrine 100mcg/Ml 5ml Syr) 100 mcg ITC UD PRN PRN Reason: Priapism Stop: 05/03/24 15:08 Polyethylene Glycol (Polyethylene (Miralax) 17 Gm Pack) 17 gm PO DAILY [facility] Stop: 04/28/24 08:59 Last Admin: 04/05/24 08:20 Dose: 17 gm Senna/Docusate Sodium (Docusate Sodium/Senna 50/8.6mg Tab) 1 tab PO QAM [facility] Stop: 04/28/24 08:59 Last Admin: 04/05/24 09:16 Dose: 1 tab Thiamine HCl (Thiamine Hcl 100 Mg Tab) 100 mg PO QAM [facility] Stop: 04/28/24 08:59 Last Admin: 04/05/24 08:20 Dose: 100 mg
--- NOTE | 2024-04-05 11:17 | Urology Progress Note ---
Date of Service April 05, 2024 Assessment & Plan (1) Priapism: Plan Patient with recurrent/persistent priapism despite aspiration and injection of phenylephrine on 04/02/24 and 04/03/24. We offered him bedside irrigation with phenylephrine and drainage of the old blood again 04/04/24 but he refused. Today he reports worsening penile pain with persistent erection. We discussed option for OR for penile shunt - he is agreeable and would like to proceed. Risks and benefits to be reviewed with patient by Dr. Macias. He is covered with scheduled IV Levaquin. Keep NPO. Urology to follow. Admission and Anticipated Discharge Date Admission Date: March 28, 2024 Supervising Physician Co-Signing Physician Notes Discussed patient with KEILA. Agree with plan. Patient still has a priapism and refused treatment yesterday. Having worsening pain today and still erect, offered shunt and he agreed. Consent was previously obtained. Patient is on antibiotics. Subjective Pt seen at bedside this AM Awake and sitting up in bed on arrival He states his penis is still erect and painful, worse today than yesterday Reports he is self cathing without issue Denies f/c/n/v Has been NPO Review of Systems Constitutional: as per Subjective / HPI Genitourinary: + as per Subjective / HPI Physical Exam Physical Exam: General: Alert and oriented, no acute distress HEENT: Normocephalic Pulmonary: Nonlabored respirations Abdomen: Nondistended : Firm/erect penile shaft with ecchymosis and mild penile edema. Tender with palpation. Neuro: No gross deficits Skin: Warm, dry, no rashes noted Results & Data Vital Signs (Past 12 Hours) Vital Signs Temp Pulse Pulse Resp BP BP Pulse Ox 04/05/24 09:08 87 04/05/24 02:31 36.6 C 86 18 130/87 100 04/05/24 00:15 36.9 C 86 16 124/89 98 04/04/24 23:23 98 H O2 Del Method 04/05/24 09:08 04/05/24 02:31 Room Air 04/05/24 00:15 Room Air 04/04/24 23:23 PG Care Time/CCT Total # of Minutes Spent Total Time Spent with Patient: Total time spent is greater than 50% in coordination of care (as documented) at patient's floor/unit and/or counseling patient: Coding Level of Care Code 11796 SUB INP/OBS CARE MIN Diagnoses Priapism N48.30
[2024-04-05] MEDS ORDERED: ePHEDrine sulfate 50 MG/ML AMP IV PRN (12:36)
[2024-04-05] MEDS ORDERED: ONDANSETRON INJ 2 MG/ML 2 ML VIAL IV PRN (12:36)
[2024-04-05] MEDS ORDERED: ATROPINE SULFATE 0.1 MG/ML 10ML SYR IV PRN (12:36)
[2024-04-05] MEDS ORDERED: PROMETHAZINE HCL 6.25 MG in SODIUM CHLORIDE 0.9% 50 ML IV PRN (12:36)
--- NOTE | 2024-04-05 12:36 | Anesthesiology Consultation ---
Date of Service April 05, 2024 Assessment & Plan Chart Review Chart Review: Acceptable Risk for Surgery and Patient NOT seen in Pre Admission Testing Consults Requested none ASA ASA4 Proposed Anesthesia Anesthesia Type: General Risk / Benefits Reviewed With: PT / POA / Parent / Guardian, Accepts Plan and Informed Consent Obtained History Surgery Operation Date: 04/05/24 08:20 Proposed Procedures p Penile Shunt - Mark Macias MD Height/Weight Height: 6 ft Weight: 83.7 kg Allergies Allergy/AdvReac Type Severity Reaction Status Date / Time adhesive Allergy Intermediate Contact Verified 12/23/23 10:39 dermatitis latex Allergy Mild RASH Verified 12/23/23 10:39 tramadol Allergy Unknown n/v Verified 12/23/23 10:39 Medications Home Medications Medication Instructions Recorded Confirmed Last Taken gabapentin 300 mg capsule 300 mg PO TID 06/16/22 03/28/24 10/19/23 am dose montelukast 10 mg tablet 10 mg PO QAM 06/16/22 03/28/24 10/19/23 pantoprazole 40 mg tablet,delayed 40 mg PO QAM 06/16/22 03/28/24 10/19/23 release aspirin 81 mg tablet,delayed 81 mg PO QAM 01/31/23 03/28/24 10/19/23 release buspirone 10 mg tablet 10 mg PO BID 01/31/23 03/28/24 10/19/23 am dose cholecalciferol (vitamin D3) 25 25 mcg PO QDL 01/31/23 03/28/24 10/18/23 mcg (1,000 unit) capsule (Vitamin D3) duloxetine 60 mg capsule,delayed 60 mg PO QAM 01/31/23 03/28/24 10/19/23 release atorvastatin 40 mg tablet 40 mg PO QAM 10/19/23 03/28/24 10/19/23 bupropion HCl 450 mg 24 hr tablet, 450 mg PO QAM 10/19/23 03/28/24 10/19/23 extended release clonazepam 0.5 mg tablet 0.5 mg PO BID PRN Anxiety 10/19/23 03/28/24 Unknown clopidogrel 75 mg tablet 75 mg PO DAILYBL 10/19/23 03/28/24 10/18/23 dulaglutide 1.5 mg/0.5 mL 1.5 mg subcut TU 0503/28/24 10/12/23 subcutaneous pen injector DUE TODAY (Trulicity) duloxetine 30 mg capsule,delayed 30 mg PO QAM 10/19/23 03/28/24 10/19/23 release magnesium oxide 400 mg (241.3 mg 400 mg PO QAM 10/19/23 03/28/24 10/19/23 magnesium) tablet oxybutynin chloride 10 mg 10 mg PO QAM 10/19/23 03/28/24 10/19/23 tablet,extended release 24 hr ramelteon 8 mg tablet 8 mg PO HS PRN Sleep 10/19/23 03/28/24 Unknown lidocaine HCl 2 % mucosal jelly in 0.5 ml EXT BID PRN catheter Pain 10/26/23 03/28/24 Unknown applicator #125 mL L.acidop,casei,lactis,rham-B.lact,ela 1 cap PO DAILY #10 caps 11/15/23 03/28/24 Unknown 625 mg (10 billion cell) capsule (Advanced Probiotic) midodrine 5 mg tablet 5 mg PO BID #30 tabs 11/15/23 03/28/24 Unknown nicotine 14 mg/24 hr daily 1 patch transdermal DAILY #14 ea 11/15/23 03/28/24 Unknown transdermal patch polyethylene glycol 3350 17 gram 17 g PO DAILY #14 ea 11/15/23 03/28/24 Unknown oral powder packet (Miralax) sennosides 8.6 mg-docusate sodium 1 tab PO QAM #30 tabs 11/15/23 03/28/24 Unknown 50 mg tablet (Senokot-S) thiamine HCl (vitamin B1) 100 mg 100 mg PO QAM #30 tabs 11/15/23 03/28/24 Unknown tablet amoxicillin 875 mg-potassium 1 tab PO BID 5 days #10 tabs 03/17/24 03/28/24 Unknown clavulanate 125 mg tablet metoprolol succinate 50 mg 50 mg PO BID #60 tabs 03/17/24 03/28/24 Unknown tablet,extended release 24 hr levofloxacin 750 mg tablet 750 mg PO DAILY 5 days #5 tabs 04/03/24 Unknown oxycodone 5 mg tablet 5 mg PO Q6H PRN pain #12 tabs 04/03/24 Unknown Active Medications Generic Name Dose Route Start Last Admin Trade Name Freq PRN Reason Stop Dose Admin Acetaminophen 500 mg 03/28/24 21:24 04/04/24 20:17 Acetaminophen 500 Mg Tab PO 04/27/24 21:23 500 mg Q6H PRN Administration fever/pain Aspirin 81 mg 03/29/24 09:00 04/05/24 08:19 Aspirin 81 Mg Ectab PO 04/28/24 08:59 81 mg QAM MAE Administration Atorvastatin Calcium 40 mg 03/29/24 09:00 04/05/24 08:19 Atorvastatin 40 Mg Tab PO 04/28/24 08:59 40 mg QAM MAE Administration Bupropion HCl 450 mg 03/29/24 09:00 04/05/24 08:19 Bupropion Xl 150 Mg Tabcr PO 04/28/24 08:59 450 mg QAM MAE Administration Buspirone HCl 10 mg 03/29/24 09:00 04/05/24 08:20 Buspirone 5 Mg Tab PO 04/28/24 08:59 10 mg BID MAE Administration Clonazepam 0.5 mg 03/29/24 05:41 04/04/24 20:16 Clonazepam 0.5 Mg Tab PO 04/28/24 05:40 0.5 mg BID PRN Administration Anxiety Clopidogrel Bisulfate 75 mg 03/29/24 10:30 04/05/24 10:44 Clopidogrel Bisulfate 75 Mg Tab PO 04/28/24 10:29 75 mg DAILYBL MAE Administration Duloxetine HCl 60 mg 03/29/24 09:00 04/05/24 08:20 Duloxetine Hcl 60 Mg Cap PO 04/28/24 08:59 60 mg QAM MAE Administration Duloxetine HCl 30 mg 03/29/24 09:00 04/05/24 08:20 Duloxetine Hcl 30 Mg Cap PO 04/28/24 08:59 30 mg QAM MAE Administration Enoxaparin Sodium 40 mg 03/29/24 09:00 04/03/24 09:00 Enoxaparin Inj 40 Mg/0.4 Ml Syr SQ 04/28/24 08:59 40 mg QAM MAE Administration Gabapentin 300 mg 03/29/24 09:00 04/03/24 15:20 Gabapentin 300 Mg Cap PO 04/28/24 08:59 Not Given TID MAE Levofloxacin/Dextrose 750 mg in 150 mls @ 100 mls/hr 04/02/24 12:30 04/05/24 11:59 Levaquin/D5w IV 04/07/24 12:29 100 mls/hr Q24H MAE Administration Protocol Insulin Aspart 0 units 04/05/24 06:00 04/05/24 11:59 Insulin Aspart Per Unit Charge SC 05/05/24 05:59 4 units Q6 MAE Administration Melatonin 3 mg 03/30/24 00:41 04/04/24 20:16 Melatonin 3 Mg Tab PO 04/29/24 00:40 3 mg HS PRN Administration Sleep Methocarbamol 500 mg 04/02/24 14:00 04/05/24 08:20 Methocarbamol 500 Mg Tablet PO 05/02/24 13:59 500 mg TID MAE Administration Metoprolol Succinate 50 mg 03/29/24 09:00 04/05/24 08:20 Metoprolol Succ 50mg Ext Rel Tab PO 04/28/24 08:59 50 mg BID MAE Administration Miconazole Nitrate 1 appln 03/29/24 00:16 03/31/24 08:04 Miconazole Nitrate Powder 85 Gm EXT 04/27/24 23:14 1 appln PRN PRN Administration AFFECTED AREAS Midodrine 5 mg 03/29/24 09:00 04/05/24 08:20 Midodrine Hcl 2.5 Mg Tab PO 04/28/24 08:59 5 mg BID@0900,1800 MAE Administration Miscellaneous 1 each 03/29/24 08:00 04/05/24 08:20 Order Awaiting Action: Ramelteon N/A 04/28/24 07:59 Not Given QS MAE Miscellaneous 1 each 03/31/24 08:59 04/05/24 08:20 Remove Nicoderm Patch N/A 04/30/24 08:58 1 each DAILY@0859 MAE Administration Montelukast Sodium 10 mg 03/29/24 09:00 04/05/24 08:20 Montelukast Sodium 10 Mg Tablet PO 04/28/24 08:59 10 mg QAM MAE Administration Nicotine 1 patch 03/29/24 09:00 04/05/24 08:20 Nicotine 14 Mg/24 Hr Patch TD 04/28/24 08:59 1 patch DAILY MAE Administration Oxybutynin Chloride 10 mg 03/29/24 09:00 04/05/24 08:20 Oxybutynin Chloride Xl 5 Mg Tabcr PO 04/28/24 08:59 10 mg QAM MAE Administration Oxycodone HCl 5 mg 03/31/24 11:34 04/04/24 20:17 Oxycodone Hcl Ir 5 Mg Tab (Immediate Release) PO 04/13/24 13:42 5 mg Q6H PRN Administration Pain Pantoprazole Sodium 40 mg 03/29/24 09:00 04/05/24 08:20 Pantoprazole 40 Mg Tab PO 04/28/24 08:59 40 mg QAM MAE Administration Polyethylene Glycol 17 gm 03/29/24 09:00 04/05/24 08:20 Polyethylene (Miralax) 17 Gm Pack PO 04/28/24 08:59 17 gm DAILY MAE Administration Senna/Docusate Sodium 1 tab 03/29/24 09:00 04/05/24 09:16 Docusate Sodium/Senna 50/8.6mg Tab PO 04/28/24 08:59 1 tab QAM MAE Administration Thiamine HCl 100 mg 03/29/24 09:00 04/05/24 08:20 Thiamine Hcl 100 Mg Tab PO 04/28/24 08:59 100 mg QAM MAE Administration NPO Date Last Intake of Fluids: 04/05/24 Time Last Intake of Fluids: 09:15 Last Intake of Fluids Comment: sip with meds Date Last Intake of Solids: 04/04/24 Time Last Intake of Solids: 18:00 Past Medical History Medical History Noncompliance Central retinal artery occlusion, left eye Diabetic peripheral neuropathy Exercise / Class Metabolic Activity II 4-5 Yardwork/Stairs/Walk up hill Past Family History Family History Other Cancer Diabetes Hypertension Past Surgical History Surgical History S/P arthroscopic knee surgery History of dental surgery Past Anesthesia History No Hx of Anesthesia Complications and No Family Hx of Anesthesia Complications History of PONV No Hx of PONV and No Hx of Motion Sickness Social History Smoking Status: Never smoker Do You Dip or Chew Tobacco: Yes Hx Alcohol Use: Yes Alcohol type: beer alcohol intake frequency: holidays/special occasions only Alcohol Intake Frequency Comment: hx of alcohol use, states has not drank in 15 years. Hx Substance Use: Yes substance use type: marijuana Last Used Substance: Days (ago) Last Used Substance Other:: Urine tox came back positive for ecstasy, benzos, and marijuana Physical Exam Vital Signs Last Vital Signs Temp 36.8 C 04/05/24 12:31 Pulse 92 H 04/05/24 12:31 Resp 20 04/05/24 12:31 BP 143/97 H 04/05/24 12:31 Pulse Ox 97 04/05/24 12:31 O2 Del Method Room Air 04/05/24 12:31 O2 Flow Rate 0 03/28/24 17:57 ENMT Mouth: + poor dentition (multiple missing or cracked) Thyromental Distance: > or= 3.5 Finger Breadths Mallampati Class: II Neck normal visual inspection Respiratory normal respiratory effort Auscultation: lungs clear to auscultation bilaterally Cardiovascular Rate/Rhythm: regular rate and regular rhythm Psychiatric Orientation: alert Testing Laboratory Results 04/04/24 08:01 04/04/24 08:01 PT 10.7 Seconds (9.0-12.0) 03/28/24 17:49 INR 1.0 (0.9-1.1) 03/28/24 17:49 Urine Color Dark Yellow 03/28/24 20:04 Urine Appearance Cloudy (Clear) A 03/28/24 20:04 Urine pH 5.5 (4.5-7.5) 03/28/24 20:04 Ur Specific Guin 1.027 (1.000-1.030) 03/28/24 20:04 Urine Protein Trace (Negative) H 03/28/24 20:04 Urine Glucose (UA) 3+ (Negative) H 03/28/24 20:04 Urine Ketones Negative (Negative) 03/28/24 20:04 Urine Nitrite Positive (Negative) A 03/28/24 20:04 Ur Leukocyte Esterase 1+ (Negative) H 03/28/24 20:04 Urine WBC (Auto) >50 /hpf (0-5) H 03/28/24 20:04 Urine RBC (Auto) 0-2 /hpf (0-2) 03/28/24 20:04 U Hyaline Cast (Auto) 6-10 /lpf (0-2) H 03/28/24 20:04 U Epithel Cells (Auto) 0-2 /hpf (0-2) 03/28/24 20:04 Urine Bacteria (Auto) 3+ (None Seen) H 03/28/24 20:04 03/28/24 19:37 Aerobic Blood Culture - Final Blood No growth in Aerobic bottle after 5 days. Anaerobic Blood Culture - Final No growth in Anaerobic bottle after 5 days. 03/28/24 19:37 Aerobic Blood Culture - Final Blood No growth in Aerobic bottle after 5 days. Anaerobic Blood Culture - Final No growth in Anaerobic bottle after 5 days. 03/28/24 20:04 Urine Culture - Final Urine,Straight Cath Pseudomonas aeruginosa Klebsiella pneumoniae 04/05/24 11:54 POC Glucose 222 H
[2024-04-05] MEDS: LACTATED RINGER'S 1,000 ML IV SCH (12:43)
[2024-04-05] MEDS ORDERED: PROPOFOL IV EMULSION 10 MG/ML 20 ML VIAL IV ONE (13:08)
[2024-04-05] MEDS ORDERED: fentaNYL citrate PF 100 MCG/2 ML VIAL ONE (13:08)
[2024-04-05] MEDS ORDERED: MIDAZOLAM HCL 1 MG/ML 2ML VIAL ONE (13:08)
[2024-04-05] MEDS ORDERED: LIDOCAINE 2% 2 ML VIAL/AMP(20MG/ML) INFIL ONE (13:08)
[2024-04-05] MEDS ORDERED: ONDANSETRON INJ 2 MG/ML 2 ML VIAL ONE (13:08)
[2024-04-05] MEDS: BUPIVACAINE 0.5 % 5 MG/1 ML MPF 30ML VIAL ONE (13:37)
--- NOTE | 2024-04-05 13:52 | Operative Report ---
PG Post Operative Report Pre & Post Diagnosis Operation Date: 04/05/24 08:20 Pre-Op Diagnosis: Priapism Post-Op Diagnosis: Priapism I identified the patient and participated in the time-out.: Yes Procedure Operation Date: 04/05/24 08:20 Actual Procedures p Penile Shunt bilateral (Not Applicable) - Mark Macias MD Surgeon Mark Macias MD Field Reporter None Estimated Blood Loss 5 Findings See Below Ischemic maroon blood from both shunt sites. Detumescence achieved. Hemostatic at end of case. Specimens None Drains 16 Austrian Pierce catheter with 10 cc in balloon Anesthesia Type General Complications none Indications 48-year-old male with ischemic priapism who had failed to aspirations with phenylephrine injections at the bedside. He declined a shunt or further treatment yesterday but today had worsening pain and still had an erection. He was agreeable to having a shunt placed. Risk and benefits were discussed and he recognizes that he may have permanent ED. Patient was already on antibiotics. Description of Procedure After informed consent was obtained, the patient was transferred to the operative suite. General anesthesia was induced. They were placed in a supine position. They were prepped and draped in a sterile process. They were previously on antibiotics. An appropriate surgical timeout was performed. I inserted a 16Fr pierce catheter with return of clear urine. Balloon was inflated with 10cc of sterile water and the catheter was set to gravity drainage. Starting on the right side, I made a stab incision through his glans into his right corpora turning the 11 blade 90 degrees. This was removed. Maroon blood returned consistent with ischemic priapism. I repeated this on the left side. I was careful to not angle into the urethra on either side. I then applied pressure to squeeze out some of the old ischemic blood. Once the penis detumesced, I closed both stab incisions using interrupted 3-0 chromic. Hemostasis was appropriate. Urine remained clear yellow. Penis remained detumesced. I wrapped this with Keegan and Baldemar. This concluded the end of the case. All counts correct at the end of the case. I was present scrubbed [place] participated for the entirety of the procedure I attest to the content of the Intraoperative Record and any orders documented therein. Any exceptions are noted below.
[2024-04-05] MEDS: fentaNYL citrate PF 100 MCG/2 ML VIAL IV PRN (14:14)
--- NOTE | 2024-04-05 14:28 | Anesthesiology Progress Note ---
Date of Service April 05, 2024 Anesthesia Post Procedure Vital Signs Vital Signs: Temp Pulse Pulse Pulse Resp BP BP 04/05/24 14:25 90 13 124/83 04/05/24 14:15 91 H 17 103/87 04/05/24 14:05 92 H 15 125/96 04/05/24 13:58 36.5 C 94 H 16 135/92 04/05/24 12:31 36.8 C 92 H 20 143/97 H 04/05/24 11:55 36.5 C 97 H 18 145/94 H 04/05/24 09:08 87 04/05/24 02:31 36.6 C 86 18 130/87 04/05/24 00:15 36.9 C 86 16 124/89 04/04/24 23:23 98 H 04/04/24 20:00 37.1 C 95 H 18 138/95 04/04/24 16:36 36.9 C 92 H 18 160/98 H 04/04/24 14:49 92 H Pulse Ox O2 Del Method O2 Flow Rate 04/05/24 14:25 98 Room Air 04/05/24 14:15 100 Oxymask 2 04/05/24 14:05 100 Oxymask 7 04/05/24 13:58 100 Oxymask 7 04/05/24 12:31 97 Room Air 04/05/24 11:55 100 Room Air 04/05/24 09:08 04/05/24 02:31 100 Room Air 04/05/24 00:15 98 Room Air 04/04/24 23:23 04/04/24 20:00 99 Room Air 04/04/24 16:36 100 Room Air 04/04/24 14:49 Pain Intensity Generalized: Pain Intensity: 10 Head: Pain Intensity: 8 Back: Pain Intensity: 5 Penis: Pain Intensity: 7 Transfer of Care Handoff Completed per policy Notes Mental Status: alert / awake / arousable Patient Amnestic to Procedure: Yes Nausea / Vomiting: adequately controlled Pain: adequately controlled Airway Patency, RR, SpO2: stable & adequate BP & HR: stable & adequate Hydration State: stable & adequate Anesthetic Complications: no major complications apparent and Pt Satisfied with anesthetic care
[2024-04-06] MEDS ORDERED: Nursing to Pharmacy Communication SCH (00:15)
[2024-04-06 07:59] LABS: Basophils # (auto) 0.17 K/uL (0.00-0.20); Basophils % (auto) 0.8 %; Eosinophils # (auto) 0.35 K/uL (0.00-0.50); Eosinophils % (auto) 1.7 %; Hematocrit (blood only) 33.6 % (42.0-52.0); Hemoglobin 10.7 g/dl (14.0-18.0); Lymphocytes # (auto) 3.72 K/uL (1.20-3.40); Lymphocytes % (auto) 18.3 %; Mean Corpuscular Hemoglobin 26.4 pg (25.0-34.0); Mean Corpuscular Hgb Conc 31.8 g/dL (32.0-36.0); Mean Corpuscular Volume 82.8 fL (80.0-100.0); Mean Platelet Volume 10.3 fL (9.4-12.4); Monocytes # (auto) 2.08 K/uL (0.11-0.59); Monocytes % (auto) 10.2 %; Neutrophils # (auto) 13.41 K/uL (1.40-6.50); Platelet Count 439 K/uL (130-400); RDW Coefficient of Variation 15.6 % (11.5-14.5); RDW Standard Deviation 46.4 fL (36.4-46.3); Red Blood Count 4.06 M/uL (4.70-6.10); White Blood Count 20.33 K/ul (4.8-10.8)
--- NOTE | 2024-04-06 08:07 | Urology Progress Note ---
Date of Service April 06, 2024 Assessment & Plan (1) Priapism: Plan Patient is POD #1 s/p bilateral penile shunt for persistent priapism Penile dressing removed this morning. There is some mild edema and ecchymosis as expected. Medrano intact and draining clear yellow urine. Okay for discharge from perspective. Plan to discharge home with Medrano catheter. Will arrange follow-up with our service. Urology will sign off. Please call with any further questions or concerns Admission and Anticipated Discharge Date Admission Date: March 28, 2024 Subjective Pt seen at bedside this AM. Awake and resting in bed on arrival. No acute distress. Penile dressing in place. There is some mild ecchymosis and penile swelling as expected. Medrano intact and draining clear yellow urine. No fevers. Review of Systems Constitutional: as per Subjective / HPI Genitourinary: + as per Subjective / HPI Physical Exam Physical Exam: General: Alert and oriented, no acute distress HEENT: Normocephalic Pulmonary: Nonlabored respirations Abdomen: Nondistended : Medrano intact. Penile dressing removed. Mild penile ecchymosis and edema noted. Mildly tender with palpation. Neuro: No gross deficits Skin: Warm, dry, no rashes noted Results & Data Vital Signs (Past 12 Hours) Vital Signs Temp Pulse Pulse Resp BP BP Pulse Ox 04/06/24 07:56 36.9 C 86 19 133/84 96 04/06/24 04:01 36.9 C 91 H 18 130/84 96 04/05/24 23:34 36.8 C 90 18 135/88 98 04/05/24 23:05 92 H O2 Del Method 04/06/24 07:56 Room Air 04/06/24 04:01 Room Air 04/05/24 23:34 Nasal Cannula 04/05/24 23:05 PG Care Time/CCT Total # of Minutes Spent Total Time Spent with Patient: Total time spent is greater than 50% in coordination of care (as documented) at patient's floor/unit and/or counseling patient: Coding Level of Care Code 44999 SUB INP/OBS CARE 2/35MIN Diagnoses Priapism N48.30
[2024-04-06 08:12] LABS: BUN Creatinine Ratio 25.5 (10-20); Calcium 8.8 mg/dl (8.6-10.3); Creatinine Clr Calc Pharmacy 98.3 ml/min; Potassium 4.2 mmol/L (3.5-5.1)
[2024-04-06] MEDS: INSULIN ASPART PER UNIT CHARGE SC SCH (08:51)
[2024-04-06 11:23] VITALS: BP 123/83; RESP 18; TEMP 98.9; O2SAT 97
--- NOTE | 2024-04-06 12:42 | Discharge Summary ---
Date of Service April 06, 2024 Admission HPI Per Admitting Provider History obtained from patient and records. Medical history significant for chronic diastolic heart failure (EF 50-55%, TTE 2023), CAD status post stent, hypertension, hyperlipidemia, orthostatic hypotension on midodrine, CRI (baseline creatinine 1.4), DM2 on oral medications, migraine, chronic anemia (baseline hemoglobin of 10-11), chronic urinary retention with indwelling Pierce catheter, anxiety/mood disorder, past tobacco abuse. Recent confinement 2 weeks ago for severe sepsis secondary to complicated UTI secondary to bilateral hydroureteronephrosis. Urine cultures grew Klebsiella. Urology recommended indwelling Pierce catheter on discharge. Patient seen by cardiology during confinement for troponin elevation. Patient declined rehab recommendation. Patient has not seen PCP since discharge to home. A week after returning home, patient started feeling weak and sick again could not get out of bed. Denies chest pain, SOB, abdominal pain. EMS called to patient's home. Vancomycin and cefepime administered at the ER. Medical History as above Surgical History : Dental surgery, knee surgery, vascular procedure Family History : Prostate cancer, DM, hypertension Personal/Social history : Past tobacco abuse, no EtOH intake, disabled Admission Exam Per Admitting Provider GENERAL: wane, apathetic, looks older than stated age, no respiratory distress SKIN: Pallor, warm HEENT: Pale palpebral conjunctivae, no ptosis, dry buccal mucosa NECK : Supple, no tenderness CHEST : CTA, no tenderness HEART : Tachycardic, no obvious murmurs ABDOMEN: Some distention, nontender EXTREMITIES : No LE swelling/tenderness, no other conspicuous deformities noted NEUROLOGIC : Oriented, no facial asymmetry, no other gross focality Principal Diagnosis Severe Sepsis - resolved Complicated UTI Catheter associated UTI Priapism Discharge Exam Gen: WD/WN, M, appears older than age, sitting up at bedside NAD, A&O x3 HEENT: Normocephalic, atraumatic, conjunctivae moist, sclerae anicteric, mucous membranes moist. Lung: Clear to Auscultation bilaterally, no wheezes/rales/rhonchi Heart: Regular rate, regular rhythm, no murmurs, rubs, or gallops Abdomen: Soft, NT, ND +BS x 4 Extremities: No edema Skin: Warm, no rash, negative turgor. - w/ penile sutures and pierce in w/ light yellow urine. Discharge Data Allergies Allergy/AdvReac Type Severity Reaction Status Date / Time adhesive Allergy Intermediate Contact Verified 12/23/23 10:39 dermatitis latex Allergy Mild RASH Verified 12/23/23 10:39 tramadol Allergy Unknown n/v Verified 12/23/23 10:39 Consultations 03/28/24 20:46 ED Decision to Admit Stat 03/30/24 13:57 Consult Behavioral Health Liaison Routine 04/02/24 09:27 Consult Urology Routine Procedures Performed Operation Date: 04/05/24 08:20 Actual Procedures p Penile Shunt(Not Applicable) - Mark Macias MD Ordered Studies 03/31/24 11:39 CT lumbar spine w con Routine Hospital Course (1) Severe sepsis: (2) Acute UTI: Plan Per Mari CROCKER's note from yesterday w/ addendum: The patient is a 48-year-old male who presented to the hospital with generalized fatigue/lethargy, recent history of hospitalization with Klebsiella UTI with history of self cath at home, Pierce catheter placed with recent hospitalization, Pierce catheter changed on 03/28 Severe sepsis CAUTI, POA Complicated urinary tract infection History of bilateral hydroureteronephrosis status post Pierce placement Urine culture + Pseudomonas/Klebsiella, IV antibiotic transitioned to IV Levaquin, will complete 10 day course Chronic leukocytosis noted, continue to monitor Patient continues to complain of lower back pain with lumbar tenderness CT lumbar spine was negative for any acute finding/abscess on 03/31 Robaxin started on 04/02 scheduled to hopefully improve pain Patient complains of discomfort around Pierce catheter/excoriation, urology consulted Pierce removed on 04/04 as per urology, plan for self cath as he used to do previously Priapism s/p emergent aspiration at bedside on 04/02 urology following - they feel priapism is coming back and going to inj phenylephrine repeat aspiration on 04/03, pt with slight recurrence today and pt refusing bedside aspiration NPO after midnight in event he needs to go to OR in a.m. hold gabapentin for now as ADR is priapism await urology recommendations Hx chronic diastolic heart failure: EF 50-55%, continue metoprolol Hx CAD s/p stent: Continue DAPT/statin Hx orthostatic hypotension: Continue midodrine Hx DM2: A1c 7.9 last October 2023, SSI/sugars controlled for now Hx anxiety/mood disorder: Continue Wellbutrin/Klonopin DVT prophylaxis: Lovenox - place on hold due to priapism FULL CODE PCP: Ruben Gordillo Dispo: pt wanted to be d/c to [facility] however they are unable to accept pt, he refused any other referrals be placed; therefore [facility] was arranged. Plan was for d/c on 04/03; however urology recommended continued hospitalization due to priapism Addendum 04/06/2024: Patient was seen and examined at bedside for the following: Catheter associated UTI/complicated urinary tract infectionurine culture positive for Pseudomonas and Klebsiella, patient will be discharged on Levaquin to complete the 10-day course. Priapism: Status post emergent aspiration, phenylephrine injection, penile sound bilateral. Patient now reports improvement in his symptoms. Patient to follow- up with urology in 1 to 2 weeks time upon discharge. Gabapentin will be on hold due to adverse effect at as priapism. Patient to continue other home medication as prior. Patient being discharged to home with home health with following instruction at the point of discharge: Levaquin 750 mg by mouth once daily for an additional 5 days for UTI. Next dose due on 04/07/2024 in the morning. Oxycodone 5 mg every 6 hours as needed for severe pain. Continue taking a daily probiotic. It is recommended that you take 500 mg of acetaminophen every 6 hours to keep pain under control. Your gabapentin is held at discharge as it can cause priapism. Please continue taking all other medications as prescribed. Home Health Attestation I certify that this patient is under my care and that I, or a physicians per diem physical therapist assistant working with me, had a face to-face encounter that meets the home health [id number] encounter requirements with this patient. The encounter with the patient was in whole, or in part, for the following medical condition, which is the primary reason for home health care (list medical condition): I certify that, based on my findings, the following services are medically necessary home health services: My clinical findings support the need for the above services because: OT Assess ADL Status and Restore Function w ADLs PT Assessment for Endurance / Balance / Strength Skilled Nsg Assessment Further, I certify that my clinical findings support that this patient is homebo und (i.e. absences from home require considerable and taxing effort and are for medical reasons or advent services or infrequently or of short duration when for other reasons) because: Certification for Home Health Services: Based on the above findings, I certify that this patient is confined to the home and needs intermittent halfway care, physical therapy and/or speech therapy or continues to need occupational therapy. The patient is under my care, and I have initiated the establishment of the plan of care. This patient will be followed by a physician who will periodically review the plan of care. Total Time Total Time Spent Total Time Spent (In Minutes): 45 Discharge Plan Discharge Items Patient Disposition: Home - Home Health Services Reason For Visit: SEPSIS Discharge Diagnosis: Severe Sepsis - resolved Complicated UTI Catheter associated UTI Priapism Activity: Resume your previous activity Weightbearing: Full weightbearing Non-emergency contact: Primary Care Provider and Urologist Call non-emergency contact if: you have any medication questions, your symptoms worsen and your pain is not controlled Follow-up/Referrals: Ruben Gordillo MD [Primary Care Provider] - 04/07/24 11:40 am (Date & Time 04/07/2024 11:40 AM Provider Ruben Gordillo MD [facility] ) Mark Macias MD [Physician] - (Urology office will call you with a follow up appt. If you do not hear from them in 1 week, please contact the number above. ) Diet: Carb Consistent or DM2 Addtl Attending Provider Instructions: MEDICATION CHANGES: Levaquin 750 mg by mouth once daily for an additional 5 days for UTI. Next dose due on 04/07/2024 in the morning. Oxycodone 5 mg every 6 hours as needed for severe pain. Continue taking a daily probiotic. It is recommended that you take 500 mg of acetaminophen every 6 hours to keep pain under control. Your gabapentin is held at discharge as it can cause priapism. Please continue taking all other medications as prescribed. SUMMARY OF TEST RESULTS: You were admitted to hospital secondary to severe sepsis in setting of complicated urinary tract infection associated with intermittent straight catheterizations. Your urine culture was positive for Pseudomonas and Klebsiella. You received IV antibiotics which was later transitioned to oral antibiotic. Subsequently you developed penile pain while in the hospital. You are diagnosed with priapism, which is a emergent surgical issue. You underwent aspiration by urologist Dr. Macias. You further underwent surgical intervention for this issue. You continue to have pain/swelling/bruising of the penis which is a normal finding after this procedure. It was recommended you go to rehab after hospital stay, but this was declined. You are going to maintain your pierce catheter at home until your follow up with your urologist in a week time. PENDING TEST RESULTS: None RECOMMENDATIONS FOR FOLLOW-UP: Please follow up with your Primary Care Provider as scheduled. Your urologist will contact you with a follow up appointment Please monitor your temperature daily. If your temperature is > 100 degrees Fahrenheit please see ED due to your history of UTI. If pain around your penis worsens please contact your urologist immediately OTHER INSTRUCTIONS: Seek medical attention if you have: * temperature above 101 * chest pain or trouble breathing * abdominal pain, nausea, vomiting * diarrhea, dark stools or bloody stools * any unanswered questions or concerns Call 911 if symptoms are severe. Please take good care of yourself. It has been a pleasure taking care of you. Please take care of yourself. If you have any questions regarding your recent hospitalization please contact [facility] and request [facility] @ [phone]. Pending Studies at Discharge: No Stand-Alone Forms: [facility], Smoking Cessation Medications and DC Order Prescriptions: New oxycodone 5 mg Tablet 5 mg PO Q6H PRN (Reason: pain) Qty: 12 0RF levofloxacin 750 mg tablet 750 mg PO DAILY 5 Days Qty: 5 0RF Continued pantoprazole 40 mg Tablet,Delayed Release (Dr/Ec) 40 mg PO QAM montelukast 10 mg Tablet 10 mg PO QAM buspirone 10 mg tablet 10 mg PO BID cholecalciferol (vitamin D3) [Vitamin D3] 25 mcg (1,000 unit) capsule 25 mcg PO QDL duloxetine 60 mg capsule,delayed release(DR/EC) 60 mg PO QAM aspirin 81 mg tablet,delayed release (DR/EC) 81 mg PO QAM duloxetine 30 mg capsule,delayed release(DR/EC) 30 mg PO QAM Trulicity 1.5 mg/0.5 mL pen injector 1.5 mg SUBCUT TU Rx Instructions: take on TUESDAYS bupropion HCl 450 mg tablet extended release 24 hr 450 mg PO QAM clonazepam 0.5 mg tablet 0.5 mg PO BID PRN (Reason: Anxiety) magnesium oxide 400 mg (241.3 mg magnesium) tablet 400 mg PO QAM oxybutynin chloride 10 mg tablet extended release 24hr 10 mg PO QAM atorvastatin 40 mg tablet 40 mg PO QAM clopidogrel 75 mg tablet 75 mg PO DAILYBL ramelteon 8 mg tablet 8 mg PO HS PRN (Reason: Sleep) lidocaine HCl 2 % Jelly In Applicator 0.5 ml EXT BID PRN (Reason: catheter Pain) Qty: 125 0RF sennosides-docusate sodium [Senokot-S] 8.6-50 mg Tablet 1 tab PO QAM Qty: 30 0RF midodrine 5 mg tablet 5 mg PO BID Qty: 30 0RF Rx Instructions: do not give last dose of day after 6PM or within 4 hrs of bedtime thiamine HCl (vitamin B1) 100 mg Tablet 100 mg PO QAM Qty: 30 0RF Advanced Probiotic 625 mg (10 billion cell) Capsule 1 cap PO DAILY Qty: 10 0RF polyethylene glycol 3350 [Miralax] 17 gram Powder In Packet 17 g PO DAILY Qty: 14 0RF nicotine 14 mg/24 hr patch 24 hour 1 patch transdermal DAILY Qty: 14 0RF metoprolol succinate 50 mg Tablet Extended Release 24 Hr 50 mg PO BID Qty: 60 0RF Discontinued gabapentin 300 mg Capsule 300 mg PO TID amoxicillin-pot clavulanate 875-125 mg tablet 1 tab PO BID 5 Days Qty: 10 0RF Discharge Orders: Discharge Order (Routine); Ordered 04/06/24 Ordered By: Carol Nielsen Admission Data Admit Date/Time: 03/28/24 21:21 Attending Provider: Carol Nielsen Admit Provider: Yovanny Lo Primary Care Provider: Ruben Gordillo Other Providers: [place]; [facility]; Yovanny Lo; Mark Macias
[2024-04-06 12:44] VITALS: PULSE 91
--- NOTE | 2024-04-10 13:54 | Coding Query ---
CODING QUERY To promote full compliance with coding requirements relating to patient care, provider participation is requested in all cases of pastry baker uncertainty. Please assist us with the question(s) below: Coding Question(s): Please place an 'x' in the applicable set of parenthesis below. In your clinical opinion, is the patient's catheter-associated UTI most likely due to: Self-catheterization / straight catheterization prior to their hospital stay ( ) Pierce catheterization during their hospital stay ( ) Other, please specify ( x ) ___indwelling pierce cath from prior to presentation . The following is documented within several progress notes of the record: "Severe sepsis Complicated urinary tract infection History of bilateral hydroureteronephrosis status post Pierce placement" However, the discharge summary says, "You were admitted to hospital secondary to severe sepsis in setting of complicated urinary tract infection associated with intermittent straight catheterizations" Physician's Response(s): Thank you Constance Cardenas Principal Diagnosis: "that condition established after study, to be chiefly responsible for occasioning the admission of the patient to the hospital for care." Co-Existing Principal Diagnosis: "when two or more diagnoses equally meet the criteria for principal diagnosis as determined by the circumstances of admission, diagnostic work up, and/or therapy provided, and the Alphabetic Index, Tabular List, or another coding guideline does not provide sequencing direction, any one of the diagnoses may be sequenced first." "When the physician has documented what appears to be a current diagnosis in the body of the record, but has not included the diagnosis in the final diagnostic statement, the physician should be asked whether the diagnosis should be added." (Source Coding Clinic 2 QTR90. p3-4) JOSSE
== END 2024-04-06 14:31 | disposition home health service (06) | DRG 987 ==
LOC: ED 17:23 → 2W 21:21 → SUATTDRO 21:21 → 2W 22:21

== ENCOUNTER 2024-12-03 15:32 | Inpatient (IN) ==
--- NOTE | 2024-12-03 15:41 | Emergency Department Note ---
Impression & Plan Sepsis, UTI (urinary tract infection), Open wound, lower leg ED Provider Note CHIEF COMPLAINT: Leg pain HISTORY OF PRESENTING ILLNESS: Patient is a 49-year-old male who arrives to the emergency department for evaluation of right lower extremity pain. He reports he fell approximately 2 weeks ago, twice and hit the back of his right leg. He states he was having syncopal episodes, which caused him to fall. He reports his mother has been caring for the wound on the right posterior leg, however it is not improving. He reports he has a past medical history of type 2 diabetes, as well as self urinary caths. He states he has been feeling weak over the last 2 weeks. He states he also feels as if he has a urinary tract infection. He reports no fevers, abdominal pain, nausea, or vomiting. REVIEW OF SYSTEMS: See HPI for pertinent positives and pertinent negatives. ALLERGIES: See below MEDICATIONS: See below PAST MEDICAL HISTORY: See below PHYSICAL EXAM: VITALS: Vitals are noted on the nurse's note and reviewed by myself. Hypotensive, tachycardia. GENERAL: 49-year-old male, in no acute distress, nondiaphoretic. SKIN: Ulceration present to the right posterior calf, drainage noted, surrounding erythema, with slight edema. HEAD: Normocephalic atraumatic. EYES: Pupils equal round and reactive to light and accommodation. Conjunctivae without injection, sclerae without icterus. Extraocular movements intact. NOSE: Patent, turbinates without inflammation or discharge. No sinus tenderness. MOUTH: Mucous membranes moist. No tonsillar hypertrophy. Pharynx without erythema or exudate. Uvula midline. Airway patent. Tongue does not deviate. NECK: Supple without nuchal rigidity. Cervical spine is nontender. No JVD. HEART: Tachycardia with regular rhythm without murmurs gallops or rubs. LUNGS: Clear to auscultation bilaterally without wheezes, rales or rhonchi. No retractions or accessory muscle use. ABDOMEN: Positive bowel sounds x 4. Soft, nontender, without masses or organomegaly. Lanza sign negative. No guarding or rebound tenderness. MUSCULOSKELETAL: No muscle atrophy, erythema, or edema noted. Ulceration present to the right posterior calf. Erythema surrounding, tenderness to palpation. Full range of motion, right knee, right ankle. DP pulse intact. Full sensation to right lower extremity. NEURO: Patient was alert and oriented to person place and time. No focal neurological deficits. DIFFERENTIAL DIAGNOSIS: Sepsis, UTI, infection, pneumonia, metabolic, electrolyte abnormalities, cardiac sources, intracerebral event, toxicologic, neurologic, as well as other pathologies. ED COURSE AND MEDICAL DECISION MAKING: MEDICATIONS GIVEN: 2500 cc NSS bolus, IV Zosyn, IV vancomycin MONITOR: Continuous court recording monitor: Order was placed for continuous court recording monitor. Patient was placed on the court recording monitor and continuous pulse ox. Patient was noted to be in normal sinus rhythm at an initial rate of 101 bpm per my interpretation. EKG: EKG was interpreted by myself as NSR, at a rate of 95 bpm, T wave inversions noted in inferior leads. No ST elevation or depression. Previous for comparison from shows no significant change. INTERPRETATION OF LABS: I interpreted the labs with full lab results as below in the lab section of this note. Pertinent lab results discussed in the MDM section below. INTERPRETATION OF IMAGING: Imaging studies were interpreted by myself and read by radiology as per the imaging section of this note. CHRONIC MEDICAL/SOCIAL CONDITIONS AFFECTING CARE: Uncontrolled DM type II, history sepsis. ESCALATION OF CARE CONSIDERED: Admission indicated as the patient does meet sepsis criteria. MDM SUMMARY: The patient is a pleasant, 49-year-old male who arrives to the emergency department for evaluation of the above-stated complaint. A saline lock was established, sepsis workup was initiated. A weight-based bolus of fluid resuscitation ordered and administered per protocol. Lab work shows leukocytosis, 15.02, stable anemia present. CMP shows hyponatremia 131, BUN 25, creatinine 1.61. Glucose 429. Lactate 3.1. Magnesium 1.6. Procalcitonin 0.82. ABG obtained to identify DKA, which was within normal limits. Urinalysis obtained through urinary catheterization which shows 4+ bacteria, mucus, and yeast. Chest x-ray shows no acute cardiopulmonary process. Per sepsis protocol, IV antibiotics were initiated. Based on concern for UTI, as well as construction infection, IV vancomycin, and Zosyn were ordered. Fluid resuscitation did appear to improve patient's vital signs, with resolution of tachycardia, and hypotension. X-ray imaging of the right lower extremity was obtained which shows patient will be admitted to the [facility] hospitalist group for evaluation of sepsis. Please refer to Dr. Braun's documentation for further patient workup and care. DIAGNOSIS: UTI, Wound, Sepsis The patient's case was discussed with Dr. Pope, who agreed with my evaluation and treatment plan. The chart was completed utilizing [employer] Speech voice recognition software. Grammatical errors, random word insertions, pronoun errors, and incomplete sentences are an occasional consequence of this system due to software limitations, ambient noise, and hardware issues. Any formal questions or concerns about the content, text, or information contained within the body of this dictation should be directly addressed to the provider for clarification. TREATMENT PLAN/DISCHARGE INSTRUCTIONS: Admit to hospitalist I have personally spent greater than 30 minutes of critical care time in the direct management of this patient. This includes bedside care, interpretation of diagnostic studies, and testing, discussion with consultants, patient, and family members, and other required patient management activities. This 30 minutes is in excess of all separately billable procedures. Past Med/Surg History Problem List (Updated 12/08/24 @ 01:[address]) Open wound, lower leg (Acute) UTI (urinary tract infection) (Acute) Diabetic ulcer of right lower leg Acute on chronic urinary retention Priapism Severe sepsis Sepsis (Acute) Encephalopathy Non-ST elevation [place] (NSTEMI) (Acute) Elevated lactic acid level (Acute) Acute hypernatremia (Acute) Acute dehydration (Acute) Acute kidney injury superimposed on chronic kidney disease (Acute) Sepsis (Acute) Leukocytosis (Acute) AMS (altered mental status) (Acute) Proteinuria due to type 2 diabetes mellitus Sepsis (Acute) Orthostatic hypotension dysautonomic syndrome Gross hematuria Chronic back pain greater than 3 months duration Leukocytosis (Acute) Acute urinary retention (Acute) SAMANTHA (acute kidney injury) (Acute) SAMANTHA (acute kidney injury) Hydronephrosis Urinary retention Lumbar spinal stenosis Metabolic acidosis Hyperglycemia Sinus tachycardia Dehydration (Acute) Nausea vomiting and diarrhea (Acute) Acute hyperglycemia (Acute) Subcapital fracture of left femur Closed left femoral fracture Personal history of diabetic foot ulcer Type 2 diabetes mellitus with diabetic neuropathy, unspecified CAD (coronary artery disease) Mood disorder History of percutaneous coronary intervention S/P cardiac catheterization Bipolar 1 disorder, depressed Systolic congestive heart failure Ischemic cardiomyopathy Hyperlipidemia Hypertension Type 2 diabetes mellitus Medical History Myocardial strain Noncompliance Central retinal artery occlusion, left eye Diabetic peripheral neuropathy Surgical History S/P arthroscopic knee surgery History of dental surgery Family History Other Cancer Diabetes Hypertension Social History Smoking Status: Former smoker Tobacco Type: Smokeless Tobacco (Dip or Chew) Second Hand Exposure: No; Do You Dip or Chew Tobacco: Yes; Hx Alcohol Use: Yes Alcohol type: beer Hx Substance Use: No Preferred Language: Kyrgyz Communication Ability: Effective Insurance Verification Clerk Required: No Beliefs That Will Affect Care: None Current Living Situation: Family Current Living Situation Comment: with parents Feels Safe at Home: Yes Assistive Devices: Cane, Walker and Wheelchair Allergies Allergies Allergy/AdvReac Type Severity Reaction Status Date / Time adhesive Allergy Intermediate Contact Verified 12/03/24 17:33 dermatitis latex Allergy Mild RASH Verified 12/03/24 17:33 tramadol Allergy Unknown n/v Verified 12/03/24 17:33 Home Meds Home Medications Medication Instructions Recorded Confirmed montelukast 10 mg tablet 10 mg PO QAM 06/16/22 12/03/24 pantoprazole 40 mg tablet,delayed 40 mg PO QAM 06/16/22 12/03/24 release aspirin 81 mg tablet,delayed 81 mg PO QAM 01/31/23 12/03/24 release duloxetine 60 mg capsule,delayed 60 mg PO QAM 01/31/23 12/03/24 release atorvastatin 40 mg tablet 40 mg PO QAM 10/19/23 12/03/24 clonazepam 0.5 mg tablet 0.5 mg PO BID PRN Anxiety 10/19/23 12/03/24 clopidogrel 75 mg tablet 75 mg PO DAILYBL 10/19/23 12/03/24 dulaglutide 1.5 mg/0.5 mL 1.5 mg subcut WK 10/19/23 12/03/24 subcutaneous pen injector ([facility]) duloxetine 30 mg capsule,delayed 30 mg PO QAM 10/19/23 12/03/24 release ramelteon 8 mg tablet 8 mg PO HS PRN Sleep 10/19/23 12/03/24 baclofen 20 mg tablet 20 mg PO BID 12/03/24 12/03/24 bupropion HCl 150 mg 24 hr tablet, 150 mg PO QAM 12/03/24 12/03/24 extended release bupropion HCl 300 mg 24 hr tablet, 300 mg PO QAM 12/03/24 12/03/24 extended release buspirone 15 mg tablet 15 mg PO BID 12/03/24 12/03/24 empagliflozin 10 mg tablet 10 mg PO QAM 12/03/24 12/03/24 (Jardiance) gabapentin 300 mg capsule 300 mg PO TID 12/03/24 12/03/24 metformin 500 mg tablet,extended 1,000 mg PO BID 12/03/24 12/03/24 release 24 hr midodrine 5 mg tablet See Rx Instructions .Route .COMPLEX 12/03/24 12/03/24 Previous Rx's Medication Instructions Recorded metoprolol succinate 50 mg 50 mg PO BID #60 tabs 03/17/24 tablet,extended release 24 hr Results & Data (ED) Vital Signs Vital Signs - 24 hr 12/03/24 15:33 12/03/24 15:49 12/03/24 16:21 Temperature 36.6 C Temperature Source Temporal Artery Scan Pulse Rate 101 H 98 H 97 H Pulse Rate from SpO2 Sensor 97 H Respiratory Rate 20 16 Respiratory Effort / Characteristics Non-Labored Spontaneous Respiratory Depth Normal Respiratory Pattern Regular Blood Pressure 87/54 L Blood Pressure Mean 65 Blood Pressure Position Sitting Pulse Oximetry 98 99 Sepsis Recent Fever Within 48 Hours No Sepsis New/Unexplained Change in Mental Status N/A Sepsis Action Taken by Nursing No Action Required 12/03/24 16:39 12/03/24 16:46 12/03/24 17:00 Temperature Temperature Source Pulse Rate 97 H 96 H Pulse Rate from SpO2 Sensor 97 H 96 H Respiratory Rate 15 21 Respiratory Effort / Characteristics Respiratory Depth Respiratory Pattern Blood Pressure 140/87 Blood Pressure Mean 106 Blood Pressure Position Pulse Oximetry 100 99 Sepsis Recent Fever Within 48 Hours Sepsis New/Unexplained Change in Mental Status Sepsis Action Taken by Nursing 12/03/24 17:01 12/03/24 17:02 12/03/24 17:03 Temperature Temperature Source Pulse Rate 95 H Pulse Rate from SpO2 Sensor 95 H Respiratory Rate 13 Respiratory Effort / Characteristics Respiratory Depth Respiratory Pattern Blood Pressure 144/85 H 143/86 H Blood Pressure Mean 105 97 Blood Pressure Position Pulse Oximetry 97 Sepsis Recent Fever Within 48 Hours Sepsis New/Unexplained Change in Mental Status Sepsis Action Taken by Nursing 12/03/24 17:15 Temperature Temperature Source Pulse Rate Pulse Rate from SpO2 Sensor 95 H Respiratory Rate Respiratory Effort / Characteristics Respiratory Depth Respiratory Pattern Blood Pressure Blood Pressure Mean Blood Pressure Position Pulse Oximetry 98 Sepsis Recent Fever Within 48 Hours Sepsis New/Unexplained Change in Mental Status Sepsis Action Taken by [facility] Medications Current Medication List: was personally reviewed by me Laboratory Data Attestation: I reviewed the patient's lab results. 12/06/24 06:02 12/07/24 05:41 Lab Results 12/03/24 12/03/24 12/03/24 Range/Units 15:47 15:56 16:22 WBC 15.02 H (4.8-10.8) K/ul RBC 4.97 (4.70-6.10) M/uL Hgb 12.5 L (14.0-18.0) g/dl Hct 39.6 L (42.0-52.0) % MCV 79.7 L (80.0-100.0) fL MCH 25.2 (25.0-34.0) pg MCHC 31.6 L (32.0-36.0) g/dL RDW Std Deviation 42.5 (36.4-46.3) fL RDW Coeff of Pancho 14.9 H (11.5-14.5) % Plt Count 549 H (130-400) K/uL MPV 10.7 (9.4-12.4) fL Immature Gran % (Auto) 1.5 % Neut % (Auto) 67.7 % Lymph % (Auto) 16.9 % [place] % (Auto) 11.9 % Eos % (Auto) 1.1 % Baso % (Auto) 0.9 % Neut # (Auto) 10.17 H (1.40-6.50) K/uL Lymph # (Auto) 2.54 (1.20-3.40) K/uL [place] # (Auto) 1.78 H (0.11-0.59) K/uL Eos # (Auto) 0.17 (0.00-0.50) K/uL Baso # (Auto) 0.13 (0.00-0.20) K/uL Immature Gran # (Auto) 0.23 H (0.01-0.20) K/uL VBG pH (7.36-7.41) VBG pCO2 (38-50) mmHg VBG pO2 mmHg VBG HCO3 mmol/L VBG O2 Saturation % VBG Base Excess mEq/L Sodium 131 L (136-145) mmol/L Potassium 4.6 (3.5-5.1) mmol/L Chloride 96 L (98-107) mmol/L Carbon Dioxide 23 (21-32) mmol/L Anion Gap 12 H (3-11) BUN 25 H (6-23) mg/dl Creatinine 1.61 H (0.6-1.4) mg/dl Est Cr Clr Drug Dosing 61.6 ml/min eGFR 52.42 BUN/Creatinine Ratio 15.5 (10-20) Glucose 429 H* (70-99(Fasting)) mg/dl Lactate 3.1 H* (0.4-2.0) mmol/L Calcium 9.0 (8.6-10.3) mg/dl Magnesium 1.6 L (1.7-2.4) mg/dl Total Bilirubin 0.9 (0.2-1.0) mg/dl Direct Bilirubin 0.2 (0-0.2) mg/dl AST 9 L (13-39) U/L ALT 9 (7-52) U/L Alkaline Phosphatase 107 H (34-104) U/L Troponin I High Sens 18.4 (0-20) pg/ml Total Protein 7.9 (6.0-8.3) gm/dl Albumin 3.6 (3.4-5.0) gm/dl Procalcitonin 0.82 H (0-0.5) ng/ml Urine Color Yellow Urine Appearance Turbid A (Clear) Urine pH 5.0 (4.5-7.5) Ur Specific [place] 1.016 (1.000-1.030) Urine Protein 2+ H (Negative) Urine Glucose (UA) 2+ H (Negative) Urine Ketones Trace H (Negative) Urine Blood 3+ H (Negative) Urine Nitrite Negative (Negative) Urine Bilirubin Negative (Negative) Urine Urobilinogen Negative (Negative) Ur Leukocyte Esterase 3+ H (Negative) Urine WBC (Auto) >50 (0-5) /hpf Urine RBC (Auto) 0-2 (0-4) /hpf U Hyaline Cast (Auto) 0-2 (0-5) /lpf U Epithel Cells (Auto) 0-2 (0-5) /lpf Urine Bacteria (Auto) 4+ H (Negative) Urine Mucus Present A (None Prsent) Urine Yeast Present A (None Prsent) Urine Comment Nasal Screen MRSA (PCR) (Negative) 12/03/24 12/03/24 Range/Units 16:43 16:55 WBC (4.8-10.8) K/ul RBC (4.70-6.10) M/uL Hgb (14.0-18.0) g/dl Hct (42.0-52.0) % MCV (80.0-100.0) fL MCH (25.0-34.0) pg MCHC (32.0-36.0) g/dL RDW Std Deviation (36.4-46.3) fL RDW Coeff of Pancho (11.5-14.5) % Plt Count (130-400) K/uL MPV (9.4-12.4) fL Immature Gran % (Auto) % Neut % (Auto) % Lymph % (Auto) % [place] % (Auto) % Eos % (Auto) % Baso % (Auto) % Neut # (Auto) (1.40-6.50) K/uL Lymph # (Auto) (1.20-3.40) K/uL [place] # (Auto) (0.11-0.59) K/uL Eos # (Auto) (0.00-0.50) K/uL Baso # (Auto) (0.00-0.20) K/uL Immature Gran # (Auto) (0.01-0.20) K/uL VBG pH 7.37 (7.36-7.41) VBG pCO2 36 L (38-50) mmHg VBG pO2 41 mmHg VBG HCO3 21 mmol/L VBG O2 Saturation 74.8 % VBG Base Excess -3.9 mEq/L Sodium (136-145) mmol/L Potassium (3.5-5.1) mmol/L Chloride (98-107) mmol/L Carbon Dioxide (21-32) mmol/L Anion Gap (3-11) BUN (6-23) mg/dl Creatinine (0.6-1.4) mg/dl Est Cr Clr Drug Dosing ml/min eGFR BUN/Creatinine Ratio (10-20) Glucose (70-99(Fasting)) mg/dl Lactate (0.4-2.0) mmol/L Calcium (8.6-10.3) mg/dl Magnesium (1.7-2.4) mg/dl Total Bilirubin (0.2-1.0) mg/dl Direct Bilirubin (0-0.2) mg/dl AST (13-39) U/L ALT (7-52) U/L Alkaline Phosphatase (34-104) U/L Troponin I High Sens (0-20) pg/ml Total Protein (6.0-8.3) gm/dl Albumin (3.4-5.0) gm/dl Procalcitonin (0-0.5) ng/ml Urine Color Urine Appearance (Clear) Urine pH (4.5-7.5) Ur Specific [place] (1.000-1.030) Urine Protein (Negative) Urine Glucose (UA) (Negative) Urine Ketones (Negative) Urine Blood (Negative) Urine Nitrite (Negative) Urine Bilirubin (Negative) Urine Urobilinogen (Negative) Ur Leukocyte Esterase (Negative) Urine WBC (Auto) (0-5) /hpf Urine RBC (Auto) (0-4) /hpf U Hyaline Cast (Auto) (0-5) /lpf U Epithel Cells (Auto) (0-5) /lpf Urine Bacteria (Auto) (Negative) Urine Mucus (None Prsent) Urine Yeast (None Prsent) Urine Comment Nasal Screen MRSA (PCR) Positive A (Negative) Administered Medications Acetaminophen (Acetaminophen 325 Mg Tab) 650 mg PO Q4H PRN PRN Reason: Pain or Fever Stop: 01/02/25 17:14 Last Admin: 12/08/24 00:01 Dose: 650 mg Documented By: Admin: 12/07/24 01:41 Dose: 650 mg Documented By: Admin: 12/06/24 07:14 Dose: 650 mg Documented By: Admin: 12/06/24 01:40 Dose: 650 mg Documented By: Admin: 12/05/24 16:41 Dose: 650 mg Documented By: Admin: 12/05/24 00:16 Dose: 650 mg Documented By: AMC Atorvastatin Calcium ([facility]atin 40 Mg Tab) [facility] [place]: 01/03/25 08:59 Last Admin: 12/07/24 07:34 Dose: 40 mg Documented By: Admin: 12/06/24 08:29 Dose: 40 mg Documented By: Admin: 12/05/24 09:04 Dose: 40 mg Documented By: Admin: 12/04/24 08:43 Dose: 40 mg Documented By: PENNIE Bupropion HCl (Bupropion Xl 150 Mg Tabcr) 450 mg PO QAM MAE Stop: 01/03/25 08:59 Last Admin: 12/07/24 07:33 Dose: 450 mg Documented By: Admin: 12/06/24 08:28 Dose: 450 mg Documented By: Admin: 12/05/24 09:03 Dose: 450 mg Documented By: Admin: 12/04/24 08:34 Dose: 450 mg Documented By: PENNIE Buspirone HCl (Buspirone 5 Mg Tab) 10 mg PO BID MAE Stop: 01/02/25 20:59 Last Admin: 12/07/24 20:57 Dose: 10 mg Documented By: Admin: 12/07/24 07:32 Dose: 10 mg Documented By: Admin: 12/06/24 21:04 Dose: 10 mg Documented By: Admin: 12/06/24 08:42 Dose: 10 mg Documented By: Admin: 12/05/24 21:06 Dose: 10 mg Documented By: Admin: 12/05/24 09:04 Dose: 10 mg Documented By: Admin: 12/04/24 20:44 Dose: 10 mg Documented By: Admin: 12/04/24 08:33 Dose: 10 mg Documented By: Admin: 12/03/24 21:13 Dose: 10 mg Documented By: CHRISTOPHER Cetirizine HCl (Cetirizine Hcl 10 Mg Tablet) 10 mg PO DAILY MAE Stop: 01/06/25 08:59 Last Admin: 12/07/24 07:29 Dose: 10 mg Documented By: NADER Clonazepam (Clonazepam 0.5 Mg Tab) 0.5 mg PO BID PRN PRN Reason: Anxiety Stop: 01/02/25 18:50 Last Admin: 12/07/24 20:54 Dose: 0.5 mg Documented By: Admin: 12/07/24 07:28 Dose: 0.5 mg Documented By: Admin: 12/06/24 07:15 Dose: 0.5 mg Documented By: NADER Collagenase (Collagenase Oint 30 Gm Tube) 1 appln EXT DAILY MAE Stop: 01/04/25 11:59 Last Admin: 12/07/24 07:37 Dose: 1 appln Documented By: Admin: 12/06/24 08:31 Dose: 1 appln Documented By: Admin: 12/05/24 12:59 Dose: 1 appln Documented By: ALEKSANDR Piperacillin Sod/Tazobactam Sod (Zosyn) 4.5 gm in 100 mls @ 25 mls/hr IV Q8H MAE; Protocol Stop: 12/10/24 21:59 Last Admin: 12/07/24 22:03 Dose: 25 mls/hr Documented By: Infusion: 12/07/24 19:25 Dose: Infused Documented By: Admin: 12/07/24 14:54 Dose: 25 mls/hr Documented By: Infusion: 12/07/24 09:12 Dose: Infused Documented By: Admin: 12/07/24 05:12 Dose: 25 mls/hr Documented By: Infusion: 12/07/24 01:02 Dose: Infused Documented By: Admin: 12/06/24 21:01 Dose: 25 mls/hr Documented By: Infusion: 12/06/24 20:20 Dose: Infused Documented By: Admin: 12/06/24 15:21 Dose: 25 mls/hr Documented By: Infusion: 12/06/24 08:00 Dose: Infused Documented By: Infusion: 12/06/24 05:25 Dose: 25 mls/hr Documented By: Admin: 12/06/24 05:16 Dose: 250 mls/hr Documented By: Infusion: 12/06/24 01:09 Dose: Infused Documented By: Admin: 12/05/24 21:04 Dose: 25 mls/hr Documented By: Infusion: 12/05/24 17:06 Dose: Infused Documented By: Admin: 12/05/24 13:04 Dose: 25 mls/hr Documented By: Infusion: 12/05/24 08:50 Dose: Infused Documented By: Admin: 12/05/24 05:09 Dose: 25 mls/hr Documented By: Infusion: 12/05/24 01:00 Dose: Infused Documented By: Admin: 12/04/24 21:34 Dose: 25 mls/hr Documented By: Infusion: 12/04/24 18:18 Dose: Infused Documented By: KEWyatt Admin: 12/04/24 14:10 Dose: 25 mls/hr Documented By: Infusion: 12/04/24 10:35 Dose: Infused Documented By: Admin: 12/04/24 05:59 Dose: 25 mls/hr Documented By: Infusion: 12/04/24 01:20 Dose: Infused Documented By: Admin: 12/03/24 21:13 Dose: 25 mls/hr Documented By: CHRISTOPHER Vancomycin HCl 750 mg/ Sodium (Chloride) 265 mls @ 200 mls/hr IV Q12H MAE Stop: 12/11/24 00:59 Last Admin: 12/08/24 01:09 Dose: 200 mls/hr Documented By: Infusion: 12/07/24 16:13 Dose: Infused Documented By: Admin: 12/07/24 14:53 Dose: 200 mls/hr Documented By: Infusion: 12/07/24 02:05 Dose: Infused Documented By: Admin: 12/07/24 00:44 Dose: 200 mls/hr Documented By: Infusion: 12/06/24 15:00 Dose: Infused Documented By: Admin: 12/06/24 13:40 Dose: 200 mls/hr Documented By: Infusion: 12/06/24 02:25 Dose: Infused Documented By: Admin: 12/06/24 00:52 Dose: 200 mls/hr Documented By: Infusion: 12/05/24 14:52 Dose: Infused Documented By: Admin: 12/05/24 12:59 Dose: 200 mls/hr Documented By: Infusion: 12/05/24 02:25 Dose: Infused Documented By: Admin: 12/05/24 00:56 Dose: 200 mls/hr Documented By: Infusion: 12/04/24 13:41 Dose: Infused Documented By: Admin: 12/04/24 12:14 Dose: 200 mls/hr Documented By: Infusion: 12/04/24 03:36 Dose: Infused Documented By: Admin: 12/04/24 01:20 Dose: 200 mls/hr Documented By: CHRISTOPHER Insulin Aspart (Insulin Aspart Per Unit Charge) 0 units SC ACHS MAE Stop: 01/02/25 17:29 Last Admin: 12/07/24 20:58 Dose: 19 units Documented By: HAYLIE Co-signed By: LYNDA Admin: 12/07/24 17:31 Dose: 10 units Documented By: NADER Co-signed By: SHANELLE Admin: 12/07/24 12:32 Dose: 10 units Documented By: NADER Co-signed By: SHANELLE Admin: 12/07/24 08:45 Dose: 21 units Documented By: NADER Co-signed By: SHANELLE Admin: 12/06/24 21:01 Dose: 13 units Documented By: SHALA Co-signed By: SUKI Admin: 12/06/24 18:07 Dose: 8 units Documented By: NADER Co-signed By: SHANELLE Admin: 12/06/24 12:44 Dose: 14 units Documented By: NADER Co-signed By: SHANELLE Admin: 12/06/24 08:43 Dose: 22 units Documented By: NADER Co-signed By: SHANELLE Admin: 12/05/24 21:02 Dose: 2 units Documented By: SHALA Co-signed By: SUKI Admin: 12/05/24 17:26 Dose: 12 units Documented By: BILLY Co-signed By: LINDSAY Admin: 12/05/24 12:58 Dose: 19 units Documented By: ALEKSANDR Co-signed By: HYACINTH Admin: 12/05/24 08:59 Dose: 22 units Documented By: ALEKSANDR Co-signed By: HYACINTH Admin: 12/04/24 20:44 Dose: 18 units Documented By: CHRISTOPHER Co-signed By: ESG Admin: 12/04/24 17:06 Dose: 15 units Documented By: MANNY Co-signed By: HUNTER Admin: 12/04/24 12:12 Dose: 10 units Documented By: PENNIE Co-signed By: NED Admin: 12/04/24 08:33 Dose: 8 units Documented By: DTT Co-signed By: CY Admin: 12/03/24 21:28 Dose: 21 units Documented By: CHRISTOPHER Co-signed By: ESG Admin: 12/03/24 17:49 Dose: 10 units Documented By: THOMPSON Co-signed By: ERNESTO Insulin Glargine (Lantus Per Unit Charge) 0 units SC HS [facility]; Protocol Stop: 01/04/25 20:59 Last Admin: 12/07/24 20:58 Dose: 20 units Documented By: HAYLIE Co-signed By: LYNDA Admin: 12/06/24 21:02 Dose: 15 units Documented By: SHALA Co-signed By: SUKI Admin: 12/05/24 21:03 Dose: 10 units Documented By: SHALA Co-signed By: SUKI Insulin Glargine (Lantus Per Unit Charge) 30 units SC DAILY [facility] Stop: 01/06/25 08:59 Last Admin: 12/07/24 09:52 Dose: Not Given Documented By: NADER Lactobacillus Acidophilus (Advanced Probiotic 625 Mg Capsule) 1,250 mg PO DAILY [facility] Stop: 01/03/25 08:59 Last Admin: 12/07/24 07:33 Dose: 1,250 mg Documented By: Admin: 12/06/24 08:26 Dose: 1,250 mg Documented By: Admin: 12/05/24 09:02 Dose: 1,250 mg Documented By: Admin: 12/04/24 08:34 Dose: 1,250 mg Documented By: PENNIE Metoprolol Succinate (Metoprolol Succ 50mg Ext Rel Tab) 50 mg PO BID [facility] Stop: 01/02/25 20:59 Last Admin: 12/07/24 20:55 Dose: 50 mg Documented By: Admin: 12/07/24 07:35 Dose: 50 mg Documented By: Admin: 12/06/24 21:03 Dose: 50 mg Documented By: Admin: 12/06/24 08:28 Dose: 50 mg Documented By: Admin: 12/05/24 21:06 Dose: 50 mg Documented By: Admin: 12/05/24 09:04 Dose: 50 mg Documented By: Admin: 12/04/24 20:44 Dose: 50 mg Documented By: Admin: 12/04/24 08:33 Dose: 50 mg Documented By: Admin: 12/03/24 21:13 Dose: 50 mg Documented By: CHRISTOPHER Midodrine (Midodrine Hcl 2.5 Mg Tab) 2.5 mg PO BID17 [facility] Stop: 01/06/25 16:59 Last Admin: 12/07/24 17:32 Dose: 2.5 mg Documented By: NADER Miscellaneous (Remove Nicoderm Patch) 1 each N/A DAILY@0859 [facility] Stop: 01/03/25 08:58 Last Admin: 12/07/24 07:39 Dose: 1 each Documented By: Admin: 12/06/24 08:27 Dose: 1 each Documented By: Admin: 12/05/24 09:04 Dose: 1 each Documented By: Admin: 12/04/24 08:43 Dose: 1 each Documented By: PENNIE Montelukast Sodium (Montelukast Sodium 10 Mg Tablet) 10 mg PO [facility] Stop: 01/03/25 08:59 Last Admin: 12/07/24 07:33 Dose: 10 mg Documented By: Admin: 12/06/24 08:28 Dose: 10 mg Documented By: Admin: 12/05/24 09:04 Dose: 10 mg Documented By: Admin: 12/04/24 08:42 Dose: 10 mg Documented By: PENNIE Nicotine (Nicotine 14 Mg/24 Hr Patch) 1 patch TD DAILY [facility] Stop: 01/03/25 08:59 Last Admin: 12/07/24 07:32 Dose: 1 patch Documented By: Admin: 12/06/24 08:29 Dose: 1 patch Documented By: Admin: 12/05/24 09:05 Dose: 1 patch Documented By: Admin: 12/04/24 08:34 Dose: 1 patch Documented By: PENNIE Oxybutynin Chloride (Oxybutynin Chloride Xl 5 Mg Tabcr) 10 mg PO [facility] Stop: 01/03/25 08:59 Last Admin: 12/07/24 07:35 Dose: 10 mg Documented By: Admin: 12/06/24 08:29 Dose: 10 mg Documented By: Admin: 12/05/24 09:02 Dose: 10 mg Documented By: Admin: 12/04/24 08:34 Dose: 10 mg Documented By: PENNIE Oxycodone HCl (Oxycodone Hcl Ir 5 Mg Tab (Immediate Release)) 5 mg PO Q6H PRN PRN Reason: pain Stop: 12/17/24 18:50 Last Admin: 12/07/24 20:55 Dose: 5 mg Documented By: Admin: 12/07/24 14:54 Dose: 5 mg Documented By: Admin: 12/07/24 07:28 Dose: 5 mg Documented By: Admin: 12/06/24 13:40 Dose: 5 mg Documented By: Admin: 12/06/24 02:17 Dose: 5 mg Documented By: Admin: 12/05/24 17:20 Dose: 5 mg Documented By: Admin: 12/05/24 13:13 Dose: 5 mg Documented By: Admin: 12/05/24 05:15 Dose: 5 mg Documented By: CHRISTOPHER [facility]oprazole S[facility] ([facility] 40 Mg [facility]) [facility] [place]: 01/03/25 08:59 Last Admin: 12/07/24 07:34 Dose: 40 mg Documented By: Admin: 12/06/24 08:29 Dose: 40 mg Documented By: Admin: 12/05/24 09:04 Dose: 40 mg Documented By: Admin: 12/04/24 08:42 Dose: 40 mg Documented By: DTT Polyethylene Glycol (Polyethylene (Miralax) 17 Gm Pack) 17 gm PO DAILY [facility] Stop: 01/03/25 08:59 Last Admin: 12/07/24 07:39 Dose: Not Given Documented By: Admin: 12/06/24 08:31 Dose: Not Given Documented By: Admin: 12/05/24 09:02 Dose: Not Given Documented By: Admin: 12/04/24 08:48 Dose: Not Given Documented By: DTT Senna/Docusate Sodium (Docusate Sodium/Senna 50/8.6mg Tab) 1 tab PO [facility] Stop: 01/03/25 08:59 Last Admin: 12/07/24 07:30 Dose: 1 tab Documented By: Admin: 12/06/24 08:31 Dose: Not Given Documented By: Admin: 12/05/24 09:01 Dose: Not Given Documented By: Admin: 12/04/24 08:33 Dose: 1 tab Documented By: DTT Tetracaine HCl (Tetracaine Hcl 0.5% (Ophth) 60 Drops/4 Ml Btl) 4 drops OP Q6H PRN PRN Reason: OTALGIA Stop: 01/05/25 09:58 Last Admin: 12/07/24 22:04 Dose: 4 drops Documented By: Admin: 12/07/24 14:55 Dose: 4 drops Documented By: Admin: 12/07/24 07:28 Dose: 4 drops Documented By: Admin: 12/07/24 02:00 Dose: 4 drops Documented By: Admin: 12/06/24 11:58 Dose: 4 drops Documented By: NADER Thiamine HCl (Thiamine Hcl 100 Mg Tab) 100 mg PO QAM [facility] Stop: 01/03/25 08:59 Last Admin: 12/07/24 07:34 Dose: 100 mg Documented By: Admin: 12/06/24 08:28 Dose: 100 mg Documented By: Admin: 12/05/24 09:04 Dose: 100 mg Documented By: Admin: 12/04/24 08:42 Dose: 100 mg Documented By: PENNIE Vitamin D (Cholecalciferol 25 Mcg (1000 Units) Tab) 25 mcg PO QDL [facility] Stop: 01/03/25 11:29 Last Admin: 12/07/24 12:32 Dose: 25 mcg Documented By: Admin: 12/06/24 08:35 Dose: 25 mcg Documented By: Admin: 12/05/24 09:02 Dose: 25 mcg Documented By: Admin: 12/04/24 12:12 Dose: 25 mcg Documented By: PENNIE Discontinued Medications Acetaminophen (Acetaminophen 500 Mg Tab) 1,000 mg PO NOW STA Stop: 12/05/24 06:40 Last Admin: 12/05/24 07:43 Dose: 1,000 mg Documented By: ALEKSANDR Cetirizine HCl (Cetirizine Hcl 10 Mg Tablet) 10 mg PO NOW ONE Stop: 12/06/24 14:58 Last Admin: 12/06/24 15:20 Dose: 10 mg Documented By: NADER Clonazepam (Clonazepam 0.5 Mg Tab) 0.5 mg PO NOW STA Stop: 12/05/24 19:18 Last Admin: 12/05/24 19:41 Dose: 0.5 mg Documented By: SHALA Diphenhydramine HCl (Diphenhydramine Capsule 25 Mg Cap) 25 mg PO NOW ONE Stop: 12/05/24 06:32 Last Admin: 12/05/24 06:39 Dose: 25 mg Documented By: CHRISTOPHER Diphenhydramine HCl (Diphenhydramine 50 Mg/Ml Vial) 25 mg IV NOW STA Stop: 12/05/24 15:59 Last Admin: 12/05/24 16:33 Dose: 25 mg Documented By: BILLY Diphenhydramine HCl (Diphenhydramine 50 Mg/Ml Vial) 25 mg IV NOW STA Stop: 12/06/24 01:26 Last Admin: 12/06/24 01:41 Dose: 25 mg Documented By: SHALA Gadobutrol (Gadobutrol 65ml Vial) 7.5 ml IV ONCE ONE Stop: 12/07/24 13:58 Last Admin: 12/07/24 13:55 Dose: 7.5 ml Documented By: GORDON Hydralazine HCl (Hydralazine Hcl 20 Mg/Ml Vial) 5 mg IV NOW ONE Stop: 12/05/24 23:36 Last Admin: 12/05/24 23:48 Dose: 5 mg Documented By: SHALA Hydromorphone HCl (Hydromorphone Inj 0.5 Mg/0.5 Ml Syr) 0.5 mg IV NOW STA Stop: 12/06/24 07:48 Last Admin: 12/06/24 08:24 Dose: 0.5 mg Documented By: NADER Sodium Chloride (Nss) 1,000 mls @ 999 mls/hr IV .Q1H1M [facility] Stop: 12/03/24 17:45 Last Infusion: 12/03/24 17:34 Dose: Infused Documented By: Admin: 12/03/24 16:47 Dose: 999 mls/hr Documented By: Infusion: 12/03/24 16:47 Dose: Infused Documented By: Admin: 12/03/24 15:55 Dose: 999 mls/hr Documented By: THOMPSON Piperacillin Sod/Tazobactam Sod (Zosyn) 4.5 gm in 100 mls @ 200 mls/hr IV NOW ONE; Protocol Stop: 12/03/24 16:33 Last Infusion: 12/03/24 16:53 Dose: Infused Documented By: Admin: 12/03/24 16:23 Dose: 200 mls/hr Documented By: THOMPSON Vancomycin HCl 1,500 mg/ (Sodium Chloride) 530 mls @ 200 mls/hr IV NOW ONE Stop: 12/03/24 18:42 Last Infusion: 12/03/24 21:30 Dose: Infused Documented By: Admin: 12/03/24 17:01 Dose: 200 mls/hr Documented By: THOMPSON Sodium Chloride (Nss) 500 mls @ 999 mls/hr IV .Q31M ONE Stop: 12/03/24 17:01 Last Infusion: 12/03/24 17:20 Dose: Infused Documented By: Admin: 12/03/24 16:49 Dose: 999 mls/hr Documented By: THOMPSON Magnesium Sulfate/Dextrose (Magnesium Sulfate / D5w) 1 gm in 100 mls @ 100 mls/hr IV Q1H [facility]E Stop: 12/03/24 18:31 Last Infusion: 12/03/24 18:08 Dose: Infused Documented By: Admin: 12/03/24 17:20 Dose: 100 mls/hr Documented By: Infusion: 12/03/24 17:20 Dose: Infused Documented By: Admin: 12/03/24 16:47 Dose: 100 mls/hr Documented By: THOMPSON Magnesium Sulfate/Dextrose (Magnesium Sulfate / D5w) 1 gm in 100 mls @ 50 mls/hr IV ONE ONE Stop: 12/05/24 08:30 Last Infusion: 12/05/24 09:08 Dose: Infused Documented By: Admin: 12/05/24 06:39 Dose: 50 mls/hr Documented By: CHRISTOPHER Insulin Human Regular 5 units/ (Syringe) 5 mls @ 30 mls/min IV NOW ONE Stop: 12/05/24 12:31 Last Admin: 12/05/24 12:58 Dose: 30 mls/min Documented By: ALEKSANDR Co-signed By: HYACINTH Prochlorperazine 10 mg/ (Syringe) 10 mls @ 5 mls/min IV ONE ONE Stop: 12/05/24 15:59 Last Admin: 12/05/24 16:33 Dose: 5 mls/min Documented By: BILLY Acetaminophen (Ofirmev) 1,000 mg in 100 mls @ 400 mls/hr IV NOW STA Stop: 12/05/24 19:29 Last Infusion: 12/05/24 19:58 Dose: Infused Documented By: Admin: 12/05/24 19:42 Dose: 400 mls/hr Documented By: SHALA Lactated Ringer's (Lr) 1,000 mls @ 125 mls/hr IV .Q8H [facility]E Stop: 12/05/24 23:14 Last Infusion: 12/05/24 23:35 Dose: Infused Documented By: Admin: 12/05/24 19:41 Dose: 125 mls/hr Documented By: SHALA Ibuprofen (Ibuprofen 200 Mg Tab) 400 mg PO NOW STA Stop: 12/05/24 03:07 Last Admin: 12/05/24 03:24 Dose: 400 mg Documented By: CHRISTOPHER Insulin Aspart (Insulin Aspart Per Unit Charge) 0 units SC 0000,0400 [facility] Stop: 12/05/24 04:01 Last Admin: 12/05/24 03:39 Dose: 2 units Documented By: CHRISTOPHER Co-signed By: SYLWIA Admin: 12/05/24 00:05 Dose: Not Given Documented By: CHRISTOPHER Insulin Glargine (Lantus Per Unit Charge) 20 units SC ONE ONE Stop: 12/03/24 17:46 Last Admin: 12/03/24 17:47 Dose: 20 units Documented By: THOMPSON Co-signed By: ERNESTO Insulin Glargine (Lantus Per Unit Charge) 12 units SC TODAY@0900 ONE Stop: 12/04/24 09:01 Last Admin: 12/04/24 08:32 Dose: 12 units Documented By: PENNIE Co-signed By: CY Insulin Glargine (Lantus Per Unit Charge) 0 units SC BID [facility]; Protocol Stop: 01/03/25 20:59 Last Admin: 12/04/24 20:44 Dose: 12 units Documented By: CHRISTOPHER Co-signed By: SYLWIA Insulin Glargine (Lantus Per Unit Charge) 25 units SC DAILY [facility] Stop: 01/04/25 08:59 Last Admin: 12/07/24 08:46 Dose: 25 units Documented By: NADER Co-signed By: SHANELLE Admin: 12/06/24 08:44 Dose: 25 units Documented By: NADER Co-signed By: SHANELLE Admin: 12/05/24 08:59 Dose: 25 units Documented By: ALEKSANDR Co-signed By: HYACINTH Ketorolac Tromethamine (Ketorolac Tromethamine 15 Mg/Ml Vial) 15 mg IV NOW ONE Stop: 12/05/24 19:16 Last Admin: 12/05/24 19:41 Dose: 15 mg Documented By: SHALA Ketorolac Tromethamine (Ketorolac 30 Mg/Ml Vial) 30 mg IV NOW ONE Stop: 12/06/24 15:00 Last Admin: 12/06/24 15:20 Dose: 30 mg Documented By: NADER Midodrine (Midodrine Hcl 2.5 Mg Tab) 5 mg PO BID [facility] Stop: 01/02/25 20:59 Last Admin: 12/07/24 07:30 Dose: 5 mg Documented By: Admin: 12/06/24 20:43 Dose: Not Given Documented By: Admin: 12/06/24 08:28 Dose: 5 mg Documented By: Admin: 12/05/24 20:59 Dose: Not Given Documented By: Admin: 12/05/24 09:36 Dose: Not Given Documented By: Admin: 12/04/24 20:44 Dose: 5 mg Documented By: Admin: 12/04/24 08:33 Dose: 5 mg Documented By: Admin: 12/03/24 21:13 Dose: 5 mg Documented By: CHRISTOPHER Miscellaneous (Dulaglutide [Trulicity] 1.5 Mg/0.5 Ml Pen Injector--Order Awaiting Action) 1 each N/A QS [facility] Stop: 01/03/25 00:00 Last Admin: 12/03/24 23:56 Dose: Not Given Documented By: CHRISTOPHER Miscellaneous (Ramelteon 8 Mg Tablet--Order Awaiting Action) 1 each N/A QS [facility] Stop: 01/03/25 00:00 Last Admin: 12/04/24 08:48 Dose: Not Given Documented By: Admin: 12/03/24 23:56 Dose: Not Given Documented By: CHRISTOPHER Imaging Data Attestation: I personally reviewed and interpreted this imaging study as follows: Radiologist's Impression: Chest X-Ray 12/03/24 15:43 EXAM: XR chest 1V portable CLINICAL HISTORY: Sepsis TECHNIQUE: An X-ray image of the chest is obtained in AP projection. COMPARISON: X-ray dated 07/05/2024 FINDINGS: Pulmonary Parenchyma: Decreased the previously seen Bilateral prominent bronchovascular markings. No evidence of consolidation, collapse, or focal opacities. No pulmonary nodules are identified. No evidence of pleural effusion or pleural thickening. Heart and Mediastinum: Cardiac size is normal No mediastinal widening or masses. No hilar or mediastinal lymphadenopathy. Bony Thorax: Bony thorax appears intact without fractures or deformities. Soft Tissues: Soft tissues overlying the chest wall are unremarkable. IMPRESSION: 1. Decreased the previously seen Bilateral prominent bronchovascular markings. 2. No acute cardiopulmonary abnormalities are identified. (Unchanged). Electronically signed by Taras Fajardo 12-03-2024 5:27 PM Tibia/Fibula X-Ray 12/03/24 15:48 EXAM: XR tibia fibula RT 2V CLINICAL HISTORY: Wound. TECHNIQUE: X-ray right tibia and fibula, 2 views: AP (Anteroposterior) and lateral projections. COMPARISON: None. FINDINGS: Bone: The visualized tibia and fibula are intact. No evidence of fracture or dislocation. No focal bone lesions are identified. Osteoarthritic changes of the knee joint Soft Tissue: well-defined soft tissue lesion of mixed densities related to the lower mid-shaft of the fibula and the expected anatomical site of the interosseous membrane, yet no cortical disruption or preosteal reaction The rest of the Soft tissues appear normal. IMPRESSION: 1. No evidence of fracture or dislocation, or focal intraosseous abnormality. 2. Well-defined soft tissue lesion of mixed densities related to the lower mid-shaft of the fibula and the expected anatomical site of the interosseous membrane, yet no cortical disruption or preosteal reaction. Finding could represent Infection Advised cross-sectional imaging leg CT/MRI for further evaluation. 3. Osteoarthritic changes of the knee joint. 4. I'd like to let you know that a subtle bone abnormality or fracture may not be readily apparent on X-rays; so clinical correlation and further imaging, including follow-up CT, MRI, or follow-up X-rays, are advised as needed. Electronically signed by Taras Fajardo 12-03-2024 5:45 PM Discharge Plan Visit Data Chief Complaint: Leg Injury/Pain Stated Complaint: LEG LT PAIN INJURY ED Provider: Jami Pope ED Midlevel Provider: Kyara Meade Discharge Problem: Sepsis, UTI (urinary tract infection), Open wound, lower leg Patient Disposition: Admitted As Inpatient Discharge Instructions Interventions: ED Discharge Assessment Last Done: 12/03/24 19:50
[2024-12-03] MEDS: SODIUM CHLORIDE 0.9% 1,000 ML IV SCH (15:55)
[2024-12-03 16:02] LABS: Hematocrit (blood only) 39.6 % (42.0-52.0); Hemoglobin 12.5 g/dl (14.0-18.0); Immature Granulocytes # (auto) 0.23 K/uL (0.01-0.20); Immature Granulocytes % (auto) 1.5 %; Mean Corpuscular Hemoglobin 25.2 pg (25.0-34.0); Mean Corpuscular Volume 79.7 fL (80.0-100.0); Platelet Count 549 K/uL (130-400); RDW Standard Deviation 42.5 fL (36.4-46.3); Red Blood Count 4.97 M/uL (4.70-6.10); White Blood Count 15.02 K/ul (4.8-10.8)
[2024-12-03] MEDS ORDERED: VANCOMYCIN CONSULT ACTIVE PRN ×2 (16:04→17:05)
[2024-12-03] MEDS: PIPERACILLIN/TAZOBACTAM 4.5 GM/100 ML BAG IV ONE (16:23)
[2024-12-03 16:27] LABS: Alanine Aminotransferase 9.0 U/L (7-52); Alkaline Phosphatase 107.0 U/L (34-104); Anion Gap 12.0 (3-11); Bilirubin,Total 0.9 mg/dl (0.2-1.0); Blood Urea Nitrogen 25.0 mg/dl (6-23); Calcium 9.0 mg/dl (8.6-10.3); Carbon Dioxide 23.0 mmol/L (21-32); Chloride 96.0 mmol/L (98-107); Creatinine Clr Calc Pharmacy 61.6 ml/min; Glucose 429.0 mg/dl (70-99(Fasting)); Magnesium 1.6 mg/dl (1.7-2.4); Potassium 4.6 mmol/L (3.5-5.1); Sodium 131.0 mmol/L (136-145); Total Protein 7.9 gm/dl (6.0-8.3)
[2024-12-03] MEDS: MAGNESIUM SULFATE / D5W 1 GM/100 ML BAG IV SCH (16:47)
--- NOTE | 2024-12-03 16:47 | Emergency Department Note ---
ED Visit Note I was consulted by the Advanced Practice Provider, PLACIDO Monroe. I performed a substantive portion of the visit. This includes aspects of: History: Patient is a 49-year-old male presenting with right lower leg pain. Patient reports pain started 2 weeks ago after he had a syncopal episode and fell, injuring his leg. He is complaining of diffuse weakness. Patient self caths at home and is complaining of urinary symptoms. Tetanus is up-to-date. Patient reports he is diabetic and his blood sugars have been elevated. MDM: - Laboratory workup interpreted by myself showed leukocytosis (WBC 15.02) with neutrophil predominance; thrombocytosis (plt 549 - likely from dehydration); hy ponatremia (likely pseudohyponatremia in setting of hyperglycemia); elevated anion gap (12); SAMANTHA (Cr 1.61 - beaseline around 1.0); elevated lactate (3.1); hypomagnesemia (Mg 1.6); hyperglycemia (glucose 429); normal troponin; elevated procalcitonin (0.82) - Blood cultures obtained - MRSA DNA nasal swab obtained - CXR image reviewed by myself was negative for pneumonia, per my interpretation. - Xray image of right tib-fib reviewed by myself did not show any evidence of free air to suggest necrotizing fasciitis. Noted to have some free air from the open wound on the posterior calf. - Patient given IV zosyn empirically. Given IV magnesium for placement. Vancomycin added to antibiotic regimen. He was given 2.5 L normal saline. - Patient's sepsis fluid volume calculation based on actual body weight is 2328.00 mL - VBG ordered to ascertain whether the patient is in DKA or just significantly dehydrated and hyperglycemic. - Patient to be admitted to inpatient hospitalist service for further evaluation and management..
[2024-12-03] MEDS: SODIUM CHLORIDE 0.9% 500 ML IV ONE (16:49)
[2024-12-03 16:57] LABS: Base Excess VBG -3.9 mEq/L; HCO3 VBG 21 mmol/L; Oxygen Saturation VBG 74.8 %; PCO2 VBG 36 mmHg (38-50); PO2 VBG 41 mmHg; pH VBG 7.37 (7.36-7.41)
[2024-12-03] MEDS: VANCOMYCIN HCL 1,500 MG in SODIUM CHLORIDE 0.9% 500 ML IV ONE (17:01)
[2024-12-03] MEDS ORDERED: GLUCOSE 10 TAB/TUBE PO PRN (17:11)
[2024-12-03] MEDS ORDERED: GLUCOSE 40% GEL 15 GM TUBE PO PRN (17:11)
[2024-12-03] MEDS ORDERED: PHARMACY GLYCEMIC MGMT CONSULT PRN (17:11)
[2024-12-03] MEDS ORDERED: GLUCAGON FOR INJ 1 MG VIAL SQ PRN (17:11)
[2024-12-03] MEDS ORDERED: DEXTROSE 50% 50 ML SYRINGE IV PRN (17:11)
[2024-12-03] MEDS ORDERED: VANCOMYCIN HCL 1,250 MG in SODIUM CHLORIDE 0.9% 250 ML IV SCH (17:15)
--- NOTE | 2024-12-03 17:15 | History & Physical Report ---
Date of Service December 03, 2024 Assessment & Plan (1) Diabetic ulcer of right lower leg: (2) Acute on chronic urinary retention: (3) Acute hypernatremia: (4) Leukocytosis: (5) Type 2 diabetes mellitus with diabetic neuropathy, unspecified: Plan #Diabetic ulcer of right lower leg Patient sustained an injury a few weeks ago. Patient does not recall what exaclty provoked the injury. Consulted ortho COnsulted wound care will place on empiric antibiotics zosyn and vanco. #Hx chronic diastolic heart failure: EF 50-55%, continue metoprolol #Hx CAD s/p stent: Continue DAPT/statin #Hx orthostatic hypotension: Continue midodrine #Hx DM2: A1c 7.9 last October 2023, SSI/sugars controlled for now curt repeat tomorrow. #Hx anxiety/mood disorder: Continue buspirone/bupropion History of Present Illness Chief Complaint: leg cramp Primary Care Provider: Ruben Gordillo MD 49 yo male with type 2 diabetes is admitted for a laceration from a syncopal episode over 2 weeks ago. This lesion was not painful but has been bleeding since. Patient reports his mother has been caring for the wound. Patient does not recall exactly what injured his right calf. Patient si a type 2 diabetic who self caths Allergies Allergy/AdvReac Type Severity Reaction Status Date / Time adhesive Allergy Intermediate Contact Verified 12/03/24 17:33 dermatitis latex Allergy Mild RASH Verified 12/03/24 17:33 tramadol Allergy Unknown n/v Verified 12/03/24 17:33 Home Medications Medication Instructions Recorded Confirmed Type montelukast 10 mg tablet 10 mg PO QAM 06/16/22 12/03/24 History pantoprazole 40 mg tablet,delayed 40 mg PO QAM 06/16/22 12/03/24 History release aspirin 81 mg tablet,delayed 81 mg PO QAM 01/31/23 12/03/24 History release duloxetine 60 mg capsule,delayed 60 mg PO QAM 01/31/23 12/03/24 History release atorvastatin 40 mg tablet 40 mg PO QAM 10/19/23 12/03/24 History clonazepam 0.5 mg tablet 0.5 mg PO BID PRN Anxiety 10/19/23 12/03/24 History clopidogrel 75 mg tablet 75 mg PO DAILYBL 10/19/23 12/03/24 History dulaglutide 1.5 mg/0.5 mL 1.5 mg subcut WK 10/19/23 12/03/24 History subcutaneous pen injector (Trulicity) duloxetine 30 mg capsule,delayed 30 mg PO QAM 10/19/23 12/03/24 History release ramelteon 8 mg tablet 8 mg PO HS PRN Sleep 10/19/23 12/03/24 History metoprolol succinate 50 mg 50 mg PO BID #60 tabs 03/17/24 12/03/24 Rx tablet,extended release 24 hr baclofen 20 mg tablet 20 mg PO BID 12/03/24 12/03/24 History bupropion HCl 150 mg 24 hr tablet, 150 mg PO QAM 12/03/24 12/03/24 History extended release bupropion HCl 300 mg 24 hr tablet, 300 mg PO QAM 12/03/24 12/03/24 History extended release buspirone 15 mg tablet 15 mg PO BID 12/03/24 12/03/24 History empagliflozin 10 mg tablet 10 mg PO QAM 12/03/24 12/03/24 History (Jardiance) gabapentin 300 mg capsule 300 mg PO TID 12/03/24 12/03/24 History metformin 500 mg tablet,extended 1,000 mg PO BID 12/03/24 12/03/24 History release 24 hr midodrine 5 mg tablet See Rx Instructions .Route .COMPLEX 12/03/24 12/03/24 History Past Med/Surg History Problem List Diabetic ulcer of right lower leg Acute on chronic urinary retention Priapism Severe sepsis Sepsis (Acute) Encephalopathy Non-ST elevation ND (NSTEMI) (Acute) Elevated lactic acid level (Acute) Acute hypernatremia (Acute) Acute dehydration (Acute) Acute kidney injury superimposed on chronic kidney disease (Acute) Sepsis (Acute) Leukocytosis (Acute) AMS (altered mental status) (Acute) Proteinuria due to type 2 diabetes mellitus Sepsis (Acute) Orthostatic hypotension dysautonomic syndrome Gross hematuria Chronic back pain greater than 3 months duration Leukocytosis (Acute) Acute urinary retention (Acute) SAMANTHA (acute kidney injury) (Acute) SAMANTHA (acute kidney injury) Hydronephrosis Urinary retention Lumbar spinal stenosis Metabolic acidosis Hyperglycemia Sinus tachycardia Dehydration (Acute) Nausea vomiting and diarrhea (Acute) Acute hyperglycemia (Acute) Subcapital fracture of left femur Closed left femoral fracture Personal history of diabetic foot ulcer Type 2 diabetes mellitus with diabetic neuropathy, unspecified CAD (coronary artery disease) Mood disorder History of percutaneous coronary intervention S/P cardiac catheterization Bipolar 1 disorder, depressed Systolic congestive heart failure Ischemic cardiomyopathy Hyperlipidemia Hypertension Type 2 diabetes mellitus Medical History Myocardial strain Noncompliance Central retinal artery occlusion, left eye Diabetic peripheral neuropathy Surgical History S/P arthroscopic knee surgery History of dental surgery Family History Other Cancer Diabetes Hypertension Social History Smoking Status: Former smoker Tobacco Type: Smokeless Tobacco (Dip or Chew) Second Hand Exposure: No; Do You Dip or Chew Tobacco: Yes; Hx Alcohol Use: Yes Alcohol type: beer Hx Substance Use: No Preferred Language: Yemeni Communication Ability: Effective Principal Quality Engineer Required: No Beliefs That Will Affect Care: None Current Living Situation: Family Current Living Situation Comment: with parents Feels Safe at Home: Yes Safety Concerns: Feels Safe At This Time Assistive Devices: Cane and Walker Review of Systems Constitutional: no fever and no body aches Eyes: no blind spots Ear, Nose, Mouth, Throat: no ear pain Respiratory: no cough and no dyspnea Cardiovascular: no chest pain Gastrointestinal: no abdominal pain Genitourinary: no dysuria Musculoskeletal: no loss of height Integumentary: no acne Neurologic: + generalized weakness Psychiatric: no behavioral changes Endocrine: + fatigue Hematologic / Lymphatic: no easy bleeding Allergy / Immunological: no GI upset with certain foods Physical Exam Constitutional: WD/WN, vitals as above Eyes: PERRL, conjunctivae normal, anicteric sclerae ENMT: external ear and nose normal, oropharynx normal Neck: trachea midline, no thyromegaly Respiratory: normal respiratory effort, lungs clear to auscultation Cardiovascular: RRR, no murmur, no edema Gastrointestinal (Abdomen): normal bowel sounds, soft, nontender, no hepatosplenomegaly Musculoskeletal: no cyanosis or clubbing, extremities motor strength 5/5 Neurologic: PERRL, EOMI, accommodation nl, no face palsy, no dysarthria Psychiatric: A+Ox3, euthymic affect Lymphatic: no cervical or axillary lymphadenopathy Results & Data Results & Data Vital Signs (Past 12 Hours) Vital Signs Temp Pulse Resp BP Pulse Ox 12/03/24 17:02 143/86 H 12/03/24 17:01 144/85 H 12/03/24 17:00 96 H 21 99 12/03/24 16:46 140/87 12/03/24 16:39 97 H 15 100 12/03/24 16:21 97 H 16 99 12/03/24 15:49 98 H 12/03/24 15:33 36.6 C 101 H 20 87/54 L 98 PG Care Time/CCT Total # of Minutes Spent Total Time Spent with Patient: Total time spent is greater than 50% in coordination of care (as documented) at patient's floor/unit and/or counseling patient: Coding Level of Care Code 90523 INT INP/OBS CARE 3/75MIN Diagnoses Diabetic ulcer of right lower leg E11.622; L97.919 Acute on chronic urinary retention R33.9 Acute hypernatremia E87.0 Leukocytosis D72.829 Type 2 diabetes mellitus with diabetic neuropathy, unspecified E11.40
[2024-12-03 17:26] LABS: Appearance Urine Turbid (Clear); Glucose Urine UA 2+ (Negative)
--- NOTE | 2024-12-03 17:27 | XRay Report ---
EXAM: XR chest 1V portable CLINICAL HISTORY: Sepsis TECHNIQUE: An X-ray image of the chest is obtained in AP projection. COMPARISON: X-ray dated 07/05/2024 FINDINGS: Pulmonary Parenchyma: Decreased the previously seen Bilateral prominent bronchovascular markings. No evidence of consolidation, collapse, or focal opacities. No pulmonary nodules are identified. No evidence of pleural effusion or pleural thickening. Heart and Mediastinum: Cardiac size is normal No mediastinal widening or masses. No hilar or mediastinal lymphadenopathy. Bony Thorax: Bony thorax appears intact without fractures or deformities. Soft Tissues: Soft tissues overlying the chest wall are unremarkable. IMPRESSION: 1. Decreased the previously seen Bilateral prominent bronchovascular markings. 2. No acute cardiopulmonary abnormalities are identified. (Unchanged). Electronically signed by Taras Fajardo 12-03-2024 5:27 PM
[2024-12-03 17:34] LABS: Bacteria Urine Automated 4+ (Negative); Cast Urine Automated 0-2 /lpf (0-5); Epithelial Cell Urine Auto 0-2 /lpf (0-5); RBC Urine Automated 0-2 /hpf (0-4); WBC Urine Automated >50 /hpf (0-5)
--- NOTE | 2024-12-03 17:46 | XRay Report ---
EXAM: XR tibia fibula RT 2V CLINICAL HISTORY: Wound. TECHNIQUE: X-ray right tibia and fibula, 2 views: AP (Anteroposterior) and lateral projections. COMPARISON: None. FINDINGS: Bone: The visualized tibia and fibula are intact. No evidence of fracture or dislocation. No focal bone lesions are identified. Osteoarthritic changes of the knee joint Soft Tissue: well-defined soft tissue lesion of mixed densities related to the lower mid-shaft of the fibula and the expected anatomical site of the interosseous membrane, yet no cortical disruption or preosteal reaction The rest of the Soft tissues appear normal. IMPRESSION: 1. No evidence of fracture or dislocation, or focal intraosseous abnormality. 2. Well-defined soft tissue lesion of mixed densities related to the lower mid-shaft of the fibula and the expected anatomical site of the interosseous membrane, yet no cortical disruption or preosteal reaction. Finding could represent Infection Advised cross-sectional imaging leg CT/MRI for further evaluation. 3. Osteoarthritic changes of the knee joint. 4. I'd like to let you know that a subtle bone abnormality or fracture may not be readily apparent on X-rays; so clinical correlation and further imaging, including follow-up CT, MRI, or follow-up X-rays, are advised as needed. Electronically signed by Taras Fajardo 12-03-2024 5:45 PM
[2024-12-03] MEDS: LANTUS PER UNIT CHARGE SC ONE (17:47)
[2024-12-03] MEDS: INSULIN ASPART PER UNIT CHARGE SC SCH (17:49)
[2024-12-03] MEDS ORDERED: LIDOCAINE 2% JELLY 5 ML TUBE EXT PRN (18:51)
--- NOTE | 2024-12-03 20:23 | Orthopedic Consultation ---
Date of Service December 03, 2024 Assessment & Plan (1) Diabetic ulcer of right lower leg: Plan There is presence of open wound to the posterolateral aspect of the right lower leg. This area was covered with a padded dressing, which was removed to reveal some nonviable tissue within a deep open wound, and this is an area that would not be able to be approximated surgically, thus no surgical intervention was recommended. However, the patient would likely benefit from wound care, thus it is recommended that the patient have inpatient wound care evaluation and treatment. History of Present Illness Reason for Consultation: R lower leg diabetic ulcer Requesting Physician: . Attending Physician: Juan Carlos Jesse Nanettesalvador Patient is a 49-year-old male who presented to the [facility] emergency department this afternoon of 12/03/2024 for evaluation of right lower extremity pain. He reports he fell approximately 2 weeks ago, twice and hit the back of his right leg. He says that one occasion he was out for at least a few hours before he came to. He states he was having syncopal episodes, which caused him to fall. He reports his mother has been caring for the wound on the right posterior leg, however it is not improving. He reports he has a past medical history of type 2 diabetes, as well as self urinary caths. He says that his blood sugars have been in the 300-400s. He states he has been feeling weak over the last 2 weeks. Due to concern over a UTI, the patient did receive IV vancomycin and Zosyn. Orthopedics has been consulted for management of the patient's right lower leg diabetic ulcer. Allergies Allergy/AdvReac Type Severity Reaction Status Date / Time adhesive Allergy Intermediate Contact Verified 12/03/24 17:33 dermatitis latex Allergy Mild RASH Verified 12/03/24 17:33 tramadol Allergy Unknown n/v Verified 12/03/24 17:33 Home Medications Medication Instructions Recorded Confirmed Type montelukast 10 mg tablet 10 mg PO QAM 06/16/22 12/03/24 History pantoprazole 40 mg tablet,delayed 40 mg PO QAM 06/16/22 12/03/24 History release aspirin 81 mg tablet,delayed 81 mg PO QAM 01/31/23 12/03/24 History release duloxetine 60 mg capsule,delayed 60 mg PO QAM 01/31/23 12/03/24 History release atorvastatin 40 mg tablet 40 mg PO QAM 10/19/23 12/03/24 History clonazepam 0.5 mg tablet 0.5 mg PO BID PRN Anxiety 10/19/23 12/03/24 History clopidogrel 75 mg tablet 75 mg PO DAILYBL 10/19/23 12/03/24 History dulaglutide 1.5 mg/0.5 mL 1.5 mg subcut WK 10/19/23 12/03/24 History subcutaneous pen injector (Trulicity) duloxetine 30 mg capsule,delayed 30 mg PO QAM 10/19/23 12/03/24 History release ramelteon 8 mg tablet 8 mg PO HS PRN Sleep 10/19/23 12/03/24 History metoprolol succinate 50 mg 50 mg PO BID #60 tabs 03/17/24 12/03/24 Rx tablet,extended release 24 hr baclofen 20 mg tablet 20 mg PO BID 12/03/24 12/03/24 History bupropion HCl 150 mg 24 hr tablet, 150 mg PO QAM 12/03/24 12/03/24 History extended release bupropion HCl 300 mg 24 hr tablet, 300 mg PO QAM 12/03/24 12/03/24 History extended release buspirone 15 mg tablet 15 mg PO BID 12/03/24 12/03/24 History empagliflozin 10 mg tablet 10 mg PO QAM 12/03/24 12/03/24 History (Jardiance) gabapentin 300 mg capsule 300 mg PO TID 12/03/24 12/03/24 History metformin 500 mg tablet,extended 1,000 mg PO BID 12/03/24 12/03/24 History release 24 hr midodrine 5 mg tablet See Rx Instructions .Route .COMPLEX 12/03/24 12/03/24 History Past Med/Surg History Problem List Diabetic ulcer of right lower leg Acute on chronic urinary retention Priapism Severe sepsis Sepsis (Acute) Encephalopathy Non-ST elevation [place] (NSTEMI) (Acute) Elevated lactic acid level (Acute) Acute hypernatremia (Acute) Acute dehydration (Acute) Acute kidney injury superimposed on chronic kidney disease (Acute) Sepsis (Acute) Leukocytosis (Acute) AMS (altered mental status) (Acute) Proteinuria due to type 2 diabetes mellitus Sepsis (Acute) Orthostatic hypotension dysautonomic syndrome Gross hematuria Chronic back pain greater than 3 months duration Leukocytosis (Acute) Acute urinary retention (Acute) SAMANTHA (acute kidney injury) (Acute) SAMANTHA (acute kidney injury) Hydronephrosis Urinary retention Lumbar spinal stenosis Metabolic acidosis Hyperglycemia Sinus tachycardia Dehydration (Acute) Nausea vomiting and diarrhea (Acute) Acute hyperglycemia (Acute) Subcapital fracture of left femur Closed left femoral fracture Personal history of diabetic foot ulcer Type 2 diabetes mellitus with diabetic neuropathy, unspecified CAD (coronary artery disease) Mood disorder History of percutaneous coronary intervention S/P cardiac catheterization Bipolar 1 disorder, depressed Systolic congestive heart failure Ischemic cardiomyopathy Hyperlipidemia Hypertension Type 2 diabetes mellitus Medical History Myocardial strain Noncompliance Central retinal artery occlusion, left eye Diabetic peripheral neuropathy Surgical History S/P arthroscopic knee surgery History of dental surgery Family History Other Cancer Diabetes Hypertension Social History Smoking Status: Former smoker Tobacco Type: Smokeless Tobacco (Dip or Chew) Second Hand Exposure: No; Do You Dip or Chew Tobacco: Yes; Hx Alcohol Use: Yes Alcohol type: beer Hx Substance Use: No Preferred Language: Luxembourgish Communication Ability: Effective Paver Layer Required: No Beliefs That Will Affect Care: None Current Living Situation: Family Current Living Situation Comment: with parents Feels Safe at Home: Yes Safety Concerns: Feels Safe At This Time Assistive Devices: Cane and Walker Review of Systems All systems reviewed & are unremarkable except as noted in HPI & below. Physical Exam GENERAL: AA&Ox3, NAD. HEAD/FACE: Normocephalic and atraumatic. RESPIRATORY: Patient with unlabored breathing. No signs of respiratory distress. SKIN: [place], warm and dry. Open wound to right lower leg. Hyperemia noted to the wound margins. MS/EXTREMITY: No swelling, no deformities. Moving extremities appropriately. NEURO: Alert and appears oriented. Speech is fluent. Diminished sensation to distal lower extremities and feet/toes. PSYCH: Alert, pleasant, affect is calm. Musculoskeletal Extremities: + lower leg abnormality (R posterolateral lower leg w/ open wound) Skin Results & Data Results & Data Laboratory Results Laboratory Results - last 24 hr 12/03/24 12/03/24 12/03/24 15:47 15:56 16:22 WBC 15.02 H RBC 4.97 Hgb 12.5 L Hct 39.6 L MCV 79.7 L MCH 25.2 MCHC 31.6 L RDW Std Deviation 42.5 RDW Coeff of Pancho 14.9 H Plt Count 549 H MPV 10.7 Immature Gran % (Auto) 1.5 Neut % (Auto) 67.7 Lymph % (Auto) 16.9 [place] % (Auto) 11.9 Eos % (Auto) 1.1 Baso % (Auto) 0.9 Neut # (Auto) 10.17 H Lymph # (Auto) 2.54 [place] # (Auto) 1.78 H Eos # (Auto) 0.17 Baso # (Auto) 0.13 Immature Gran # (Auto) 0.23 H VBG pH VBG pCO2 VBG pO2 VBG HCO3 VBG O2 Saturation VBG Base Excess Sodium 131 L Potassium 4.6 Chloride 96 L Carbon Dioxide 23 Anion Gap 12 H BUN 25 H Creatinine 1.61 H Est Cr Clr Drug Dosing 61.6 eGFR 52.42 BUN/Creatinine Ratio 15.5 Glucose 429 H* POC Glucose Lactate 3.1 H* Calcium 9.0 Magnesium 1.6 L Total Bilirubin 0.9 Direct Bilirubin 0.2 AST 9 L ALT 9 Alkaline Phosphatase 107 H Troponin I High Sens 18.4 Total Protein 7.9 Albumin 3.6 Procalcitonin 0.82 H Urine Color Yellow Urine Appearance Turbid A Urine pH 5.0 Ur Specific [place] 1.016 Urine Protein 2+ H Urine Glucose (UA) 2+ H Urine Ketones Trace H Urine Blood 3+ H Urine Nitrite Negative Urine Bilirubin Negative Urine Urobilinogen Negative Ur Leukocyte Esterase 3+ H Urine WBC (Auto) >50 Urine RBC (Auto) 0-2 U Hyaline Cast (Auto) 0-2 U Epithel Cells (Auto) 0-2 Urine Bacteria (Auto) 4+ H Urine Mucus Present A Urine Yeast Present A Urine Comment Nasal Screen MRSA (PCR) 12/03/24 12/03/24 12/03/24 16:43 16:55 17:30 WBC RBC Hgb Hct MCV MCH MCHC RDW Std Deviation RDW Coeff of [place]ancho Plt Count MPV Immature Gran % (Auto) Neut % (Auto) Lymph % (Auto) [place] % (Auto) Eos % (Auto) Baso % (Auto) Neut # (Auto) Lymph # (Auto) [place] # (Auto) Eos # (Auto) Baso # (Auto) Immature Gran # (Auto) VBG pH 7.37 VBG pCO2 36 L VBG pO2 41 VBG HCO3 21 VBG O2 Saturation 74.8 VBG Base Excess -3.9 Sodium Potassium Chloride Carbon Dioxide Anion Gap BUN Creatinine Est Cr Clr Drug Dosing eGFR BUN/Creatinine Ratio Glucose POC Glucose 394 H* Lactate Calcium Magnesium Total Bilirubin Direct Bilirubin AST ALT Alkaline Phosphatase Troponin I High Sens Total Protein Albumin Procalcitonin Urine Color Urine Appearance Urine pH Ur Specific [place] Urine Protein Urine Glucose (UA) Urine Ketones Urine Blood Urine Nitrite Urine Bilirubin Urine Urobilinogen Ur Leukocyte Esterase Urine WBC (Auto) Urine RBC (Auto) U Hyaline Cast (Auto) U Epithel Cells (Auto) Urine Bacteria (Auto) Urine Mucus Urine Yeast Urine Comment Nasal Screen MRSA (PCR) Positive A 12/03/24 18:23 WBC RBC Hgb Hct MCV MCH MCHC RDW Std Deviation RDW Coeff of Pancho Plt Count MPV Immature Gran % (Auto) Neut % (Auto) Lymph % (Auto) [place] % (Auto) Eos % (Auto) Baso % (Auto) Neut # (Auto) Lymph # (Auto) [place] # (Auto) Eos # (Auto) Baso # (Auto) Immature Gran # (Auto) VBG pH VBG pCO2 VBG pO2 VBG HCO3 VBG O2 Saturation VBG Base Excess Sodium Potassium Chloride Carbon Dioxide Anion Gap BUN Creatinine Est Cr Clr Drug Dosing eGFR BUN/Creatinine Ratio Glucose POC Glucose Lactate 1.2 Calcium Magnesium Total Bilirubin Direct Bilirubin AST ALT Alkaline Phosphatase Troponin I High Sens Total Protein Albumin Procalcitonin Urine Color Urine Appearance Urine pH Ur Specific [place] Urine Protein Urine Glucose (UA) Urine Ketones Urine Blood Urine Nitrite Urine Bilirubin Urine Urobilinogen Ur Leukocyte Esterase Urine WBC (Auto) Urine RBC (Auto) U Hyaline Cast (Auto) U Epithel Cells (Auto) Urine Bacteria (Auto) Urine Mucus Urine Yeast Urine Comment Nasal Screen MRSA (PCR) Diagnostic Findings Tibia/Fibula X-Ray 12/03/24 15:48 EXAM: XR tibia fibula RT 2V CLINICAL HISTORY: Wound. TECHNIQUE: X-ray right tibia and fibula, 2 views: AP (Anteroposterior) and lateral projections. COMPARISON: None. FINDINGS: Bone: The visualized tibia and fibula are intact. No evidence of fracture or dislocation. No focal bone lesions are identified. Osteoarthritic changes of the knee joint Soft Tissue: well-defined soft tissue lesion of mixed densities related to the lower mid-shaft of the fibula and the expected anatomical site of the interosseous membrane, yet no cortical disruption or preosteal reaction The rest of the Soft tissues appear normal. IMPRESSION: 1. No evidence of fracture or dislocation, or focal intraosseous abnormality. 2. Well-defined soft tissue lesion of mixed densities related to the lower mid-shaft of the fibula and the expected anatomical site of the interosseous membrane, yet no cortical disruption or preosteal reaction. Finding could represent Infection Advised cross-sectional imaging leg CT/MRI for further evaluation. 3. Osteoarthritic changes of the knee joint. 4. I'd like to let you know that a subtle bone abnormality or fracture may not be readily apparent on X-rays; so clinical correlation and further imaging, including follow-up CT, MRI, or follow-up X-rays, are advised as needed. Electronically signed by Taras Fajardo 12-03-2024 5:45 PM PG Care Time/CCT Total # of Minutes Spent Total Time Spent with Patient: Total time spent is greater than 50% in coordination of care (as documented) at patient's floor/unit and/or counseling patient: Supervising Physician Co-Signing Physician Notes The patient was independently seen by me and evaluated. I took down the wound dressing and evaluated it. I provided to mechanical debridement without saline soaked sponge. There is full-thickness skin involvement down to the muscle fascia. Some foul odor. I agree with the physician assistant coach note. There is no need of surgical decompression of any abscess. This is not a wound that could be primarily closed. It is best treated by wound care. Recommend wound care consult. Orthopedics will sign off. [place] [address] IN/OBS CONSULT LVL 3,45M Patient Type New Medical Decision Making Low Complexity Diagnoses Diabetic ulcer of right lower leg E11.622; L97.919
[2024-12-03] MEDS: METOPROLOL SUCC 50MG EXT REL TAB PO SCH (21:13)
[2024-12-03] MEDS: MIDODRINE HCL 2.5 MG TAB PO SCH (21:13)
[2024-12-03] MEDS: busPIRone 5 MG TAB PO SCH (21:13)
[2024-12-03] MEDS: PIPERACILLIN/TAZOBACTAM 4.5 GM/100 ML BAG IV SCH (21:13)
[2024-12-04] MEDS: VANCOMYCIN 750 MG in SODIUM CHLORIDE 0.9% 250 ML IV SCH (01:20)
[2024-12-04 06:11] LABS: Creatinine Clr Calc Pharmacy 69.8 ml/min
[2024-12-04 07:41] LABS: Hemoglobin A1C 12.2 % (4.5-5.6)
--- NOTE | 2024-12-04 08:20 | Pharmacy Report ---
Pharmacy PK ABX Note - Date of Service December 04, 2024 - Assessment and Plan Assessment 49 year old M receiving vancomycin and zosyn for treatment of possible SSTI. Patient sustained an injury a few weeks ago resulting in an ulcer of right lower leg. Pertinent microbiologic data includes: Positive MRSA Nasal Swab, blood cultures pending. Day # 2 of antimicrobial therapy. Plan Vancomycin * Loading dose: 1500 mg IV x 1 * Maintenance dose: 750 mg IV every 12 hours * Regimen is predicted to achieve target AUC/JIGAR of 400-600 mg/L.hr * Random level ordered for: 12/05/24 @0900 Pharmacy will continue to follow and will adjust dose/frequency as necessary. Thank you. Pharmacy has transitioned to AUC monitoring for vancomycin. AUC/JIGAR is the preferred PK/PD target and is associated with decreased risk of nephrotoxicity compared to traditional trough targets.
[2024-12-04] MEDS: LANTUS PER UNIT CHARGE SC ONE (08:32)
[2024-12-04] MEDS: DOCUSATE SODIUM/SENNA 50/8.6MG TAB PO SCH (08:33)
[2024-12-04] MEDS: OXYBUTYNIN CHLORIDE XL 5 MG TABCR PO SCH (08:34)
[2024-12-04] MEDS: NICOTINE 14 MG/24 HR PATCH TD SCH (08:34)
[2024-12-04] MEDS: ADVANCED PROBIOTIC 625 MG CAPSULE PO SCH (08:34)
[2024-12-04] MEDS: THIAMINE HCL 100 MG TAB PO SCH (08:42)
[2024-12-04] MEDS: MONTELUKAST SODIUM 10 MG TABLET PO SCH (08:42)
[2024-12-04] MEDS: ATORVASTATIN 40 MG TAB PO SCH (08:43)
[2024-12-04] MEDS: REMOVE NICODERM PATCH SCH (08:43)
[2024-12-04] MEDS: POLYETHYLENE (MIRALAX) 17 GM PACK PO SCH (08:48)
--- NOTE | 2024-12-04 09:23 | Electrocardiogram Report ---
Test Reason : Blood Pressure : */* mmHG Vent. Rate : 95 BPM Atrial Rate : 95 BPM P-R Int : 158 ms QRS Dur : 86 ms QT Int : 370 ms P-R-T Axes : 35 -11 121 degrees QTcB Int : 464 ms Normal sinus rhythm T wave abnormality, consider lateral ischemia Abnormal ECG When compared with ECG of 05-Jul-2024 04:05, No significant change was found Confirmed by Lazaro Arthur ([id number]) on 12/04/2024 9:23:28 AM Referred By: REFERRED SELF Confirmed By: Lazaro Arthur
--- NOTE | 2024-12-04 09:37 | Orthopedic Progress Note ---
Date of Service December 04, 2024 Assessment & Plan (1) Diabetic ulcer of right lower leg: * Continue Current Treatment * No surgical debridement indicated given current exam * Recommend evaluation and management by wound care team * Disposition: TBD * Daily treatment: Physical Therapy/ Occupational Therapy per protocol * Weight bearing status: WBAT * Pain control * Remainder care per primary team * Ortho will follow peripherally, please contact with further concerns. Plan There is presence of open wound to the posterolateral aspect of the right lower leg. This area was covered with a padded dressing, which was removed to reveal some nonviable tissue within a deep open wound, and this is an area that would not be able to be approximated surgically, thus no surgical intervention was recommended. However, the patient would likely benefit from wound care, thus it is recommended that the patient have inpatient wound care evaluation and treatment. Subjective . Active Problems: S/p RLE wound 49 y/o male with R lower leg nonhealing ulcer. Evaluated by ortho team yesterday, surgical debridement not indicated, recommend local wound care. Doing well overall, pain managed and improved function. Denies fever/chills, chest pain/SOB, nausea/vomiting. Otherwise no complaints. Review of Systems All systems reviewed & are unremarkable except as noted in HPI & below. Physical Exam . * General: Alert and oriented, no acute distress * Constitutional: well-developed, well-nourished. * Respiratory: Normal respiratory effort, no distress * Gastrointestinal: No tenderness to palpation, no rigidity or guarding. * Skin: No rash or lesion. * Neurologic: Grossly normal * Musculoskeletal: RLE dressing removed for wound evaluation. Superficial ulceration noted posterolateral calf with slough/fibrinous exudate. No active drainage, purulence, foul odor appreciated. No surrounding erythema. Minimal tenderness of the surrounding area. Results & Data Results & Data Laboratory Results . Diagnostic Findings . PG Care Time/CCT Total # of Minutes Spent Total Time Spent with Patient: Total time spent is greater than 50% in coordination of care (as documented) at patient's floor/unit and/or counseling patient: Coding Level of Care Code 46207 SUB INP/OBS CARE 07/01MIN Diagnoses Diabetic ulcer of right lower leg E11.622; L97.919
[2024-12-04] MEDS: CHOLECALCIFEROL 25 MCG (1000 UNITS) TAB PO SCH (12:12)
--- NOTE | 2024-12-04 15:10 | Pharmacy Report ---
Pharmacy Glycemic Short Note 2 - Date of Service December 04, 2024 - Glycemic Short BSG Results (Last 24 hours): 12/03/24 12/03/24 12/03/24 15:47 17:30 21:19 Glucose 429 H* POC Glucose 394 H* 192 H 12/04/24 12/04/24 07:46 11:37 Glucose POC Glucose 140 H 239 H OUTPATIENT ANTIDIABETIC REGIMEN: * Trulicity 1.5 mg weekly * Jardiance 10 mg PO daily * Metformin 1G BID * A1C: 12.2% ASSESSMENT: * Patient admitted with a diabetic ulcer of right lower leg sustained after a fall a few weeks ago currently on vanco and zosyn. * Patient BSGs elevated on arrival but fasting today improved to 140mg/dL after 20 units of Lantus administered yesterday at dinner time. * Will use moderate stress weight based dosing in conjunction with previous data for initial dosing recommendations. * Patient is ordered and tolerating a diet. PLAN FOR INPATIENT GLYCEMIC CONTROL: * Hold outpatient oral diabetes medications * Basal insulin * Lantus 12 units SQ this morning * 0,8,or 12 units based on BSG- See MAR for details * Bolus insulin * NovoLog per scale ACHS or Q6hrs while NPO * Goal Range: Low 110 mg/dL - High 140 mg/dL * Correction Factor: 25 mg/dL/unit * Nutritional / Prandial insulin per carb ratio of 1 unit per 7 grams CHO consumed
[2024-12-04] MEDS: LANTUS PER UNIT CHARGE SC SCH (20:44)
[2024-12-04] MEDS ORDERED: LANTUS PER UNIT CHARGE SC SCH (21:00)
[2024-12-04] MEDS ORDERED: PHARMACY GLYCEMIC MGMT CONSULT PRN (21:35)
--- NOTE | 2024-12-04 22:36 | Hospitalist Progress Note ---
Date of Service December 04, 2024 Assessment & Plan (1) Diabetic ulcer of right lower leg: (2) Acute on chronic urinary retention: (3) Acute hypernatremia: (4) Leukocytosis: (5) Type 2 diabetes mellitus with diabetic neuropathy, unspecified: Plan #Diabetic ulcer of right lower leg Patient sustained an injury a few weeks ago. Patient does not recall what exactly provoked the injury. Consulted ortho Consulted wound care will place on empiric antibiotics zosyn and vanco. D/W ortho, appears patient does not require antibiotics, however will keep on empiric abx until wound care sees patient. Patient does not need intervention by ortho and wound curt be closed by secondary intention ordered wound culture #Hx chronic diastolic heart failure: EF 50-55%, continue metoprolol #Hx CAD s/p stent: Continue DAPT/statin #Hx orthostatic hypotension: Continue midodrine #Hx DM2: A1c 7.9 last October 2023, SSI/sugars controlled for now A1C over 12. #Hx anxiety/mood disorder: Continue buspirone/bupropion Admission and Anticipated Discharge Date Admission Date: December 03, 2024 Subjective Patient reports feeling well. He has no new complaints. Physical Exam Constitutional: WD/WN, vitals as above Eyes: PERRL, conjunctivae normal, anicteric sclerae ENMT: external ear and nose normal, oropharynx normal Neck: trachea midline, no thyromegaly Respiratory: normal respiratory effort, lungs clear to auscultation Cardiovascular: RRR, no murmur, no edema Gastrointestinal (Abdomen): normal bowel sounds, soft, nontender, no hepatosplenomegaly Musculoskeletal: no cyanosis or clubbing, extremities motor strength 5/5 Skin: Skin lesion on right calf: images noted on ortho notes. currently dressed Neurologic: PERRL, EOMI, accommodation nl, no face palsy, no dysarthria Psychiatric: A+Ox3, euthymic affect Lymphatic: no cervical or axillary lymphadenopathy Results & Data Results & Data Vital Signs (Past 12 Hours) Vital Signs Temp Pulse Pulse Resp BP BP Pulse Ox 12/04/24 19:49 37.2 C 96 H 18 147/94 H 98 12/04/24 19:15 12/04/24 15:40 100 H 12/04/24 15:31 36.8 C 91 H 16 133/75 97 12/04/24 11:38 36.8 C 78 18 146/91 H 99 O2 Del Method 12/04/24 19:49 Room Air 12/04/24 19:15 Room Air 12/04/24 15:40 12/04/24 15:31 Room Air 12/04/24 11:38 Room Air PG Care Time/CCT Total # of Minutes Spent Total Time Spent with Patient: Total time spent is greater than 50% in coordination of care (as documented) at patient's floor/unit and/or counseling patient: Coding Level of Care Code 89043 SUB INP/OBS CARE 3/50MIN Diagnoses Diabetic ulcer of right lower leg E11.622; L97.919 Acute on chronic urinary retention R33.9 Acute hypernatremia E87.0 Leukocytosis D72.829 Type 2 diabetes mellitus with diabetic neuropathy, unspecified E11.40
[2024-12-05] MEDS: INSULIN ASPART PER UNIT CHARGE SC SCH (00:05)
[2024-12-05] MEDS: ACETAMINOPHEN 325 MG TAB PO PRN (00:16)
[2024-12-05] MEDS: IBUPROFEN 200 MG TAB PO STA (03:24)
[2024-12-05 06:27] LABS: Hematocrit (blood only) 31.6 % (42.0-52.0); Hemoglobin 10.0 g/dl (14.0-18.0); Mean Corpuscular Hemoglobin 25.4 pg (25.0-34.0); Mean Corpuscular Volume 80.2 fL (80.0-100.0); Platelet Count 469 K/uL (130-400); RDW Standard Deviation 43.0 fL (36.4-46.3); Red Blood Count 3.94 M/uL (4.70-6.10); White Blood Count 13.95 K/ul (4.8-10.8)
[2024-12-05] MEDS: MAGNESIUM SULFATE / D5W 1 GM/100 ML BAG IV ONE (06:39)
[2024-12-05] MEDS: diphenhydrAMINE Capsule 25 MG CAP PO ONE (06:39)
[2024-12-05 06:46] LABS: Anion Gap 7.0 (3-11); Blood Urea Nitrogen 15.0 mg/dl (6-23); Calcium 8.2 mg/dl (8.6-10.3); Carbon Dioxide 25.0 mmol/L (21-32); Chloride 104.0 mmol/L (98-107); Creatinine Clr Calc Pharmacy 67.0 ml/min; Glucose 235.0 mg/dl (70-99(Fasting)); Potassium 3.7 mmol/L (3.5-5.1); Sodium 136.0 mmol/L (136-145)
[2024-12-05] MEDS: ACETAMINOPHEN 500 MG TAB PO STA (07:43)
[2024-12-05] MEDS: LANTUS PER UNIT CHARGE SC SCH ×2 (08:59→21:03)
--- NOTE | 2024-12-05 09:56 | Pharmacy Report ---
Pharmacy PK ABX Note - Date of Service December 05, 2024 - Assessment and Plan Assessment 12/05: Reviewed vancomycin level, predicting therapeutic AUC/JIGAR, continue current regimen. Urine culture with 3+ organisms, repeat drawn yesterday evening. Blood cultures NG x24 hours. WBC still elevated, patient afebrile. Renal function stable. 12/04: 49 year old M receiving vancomycin and zosyn for treatment of possible SSTI. Patient sustained an injury a few weeks ago resulting in an ulcer of right lower leg. Pertinent microbiologic data includes: Positive MRSA Nasal Swab, blood cultures pending. Day # 3 of antimicrobial therapy. Plan Vancomycin * Loading dose: 1500 mg IV x 1 * Maintenance dose: 750 mg IV every 12 hours * Regimen is predicted to achieve target AUC/JIGAR of 400-600 mg/L.hr * Random level to be order if continued beyond 48 hours. Pharmacy will continue to follow and will adjust dose/frequency as necessary. Thank you. Pharmacy has transitioned to AUC monitoring for vancomycin. AUC/JIGAR is the preferred PK/PD target and is associated with decreased risk of nephrotoxicity compared to traditional trough targets.
[2024-12-05] MEDS: INSULIN HUMAN REGULAR PER UNIT 5 UNITS in SYRINGE 4.95 ML IV ONE (12:58)
[2024-12-05] MEDS: COLLAGENASE OINT 30 GM TUBE EXT SCH (12:59)
--- NOTE | 2024-12-05 13:36 | Pharmacy Report ---
Pharmacy Glycemic Short Note 2 - Date of Service December 05, 2024 - Glycemic Short BSG Results (Last 24 hours): 12/04/24 12/04/24 12/04/24 16:20 20:21 21:31 Glucose POC Glucose 274 H 340 H* 285 H 12/05/24 12/05/24 12/05/24 00:02 03:33 06:02 Glucose 235 H POC Glucose 135 H 244 H 12/05/24 12/05/24 12/05/24 07:58 11:58 11:59 Glucose POC Glucose 275 H 309 H* 318 H* OUTPATIENT ANTIDIABETIC REGIMEN: * Trulicity 1.5 mg weekly * Jardiance 10 mg PO daily * Metformin 1G BID * A1C: 12.2% ASSESSMENT: 12/05: * Shashi received 75 units of insulin yesterday (24 were basal) * Fasting BSG this AM above goal range, appears to be requiring significantly more insulin than in previous admissions. Unclear reasoning, infection? * NovoLog tightened to a weight based stress of 3. He continues on vancomycin and Zosyn. Lunchtime BSG elevated, one time IV regular insulin bolus given to help bring BSGs down. 12/04: * Patient admitted with a diabetic ulcer of right lower leg sustained after a fall a few weeks ago currently on vanco and zosyn. * Patient BSGs elevated on arrival but fasting today improved to 140mg/dL after 20 units of Lantus administered yesterday at dinner time. * Will use moderate stress weight based dosing in conjunction with previous data for initial dosing recommendations. * Patient is ordered and tolerating a diet. PLAN FOR INPATIENT GLYCEMIC CONTROL: * Hold outpatient oral diabetes medications * Basal insulin * Lantus 25 units SQ this morning * Lantus 0-15 units SQ HS (see eMAR for additions) * Bolus insulin * NovoLog per scale ACHS or Q6hrs while NPO * Goal Range: Low 110 mg/dL - High 140 mg/dL * Correction Factor: 20 mg/dL/unit * Nutritional / Prandial insulin per carb ratio of 1 unit per 6 grams CHO consumed
[2024-12-05] MEDS: PROCHLORPERAZINE 10 MG in SYRINGE 8 ML IV ONE (16:33)
[2024-12-05] MEDS: diphenhydrAMINE 50 MG/ML VIAL IV STA (16:33)
[2024-12-05] MEDS: LACTATED RINGER'S 1,000 ML IV SCH (19:41)
[2024-12-05] MEDS: clonazePAM 0.5 MG TAB PO STA (19:41)
[2024-12-05] MEDS: KETOROLAC TROMETHAMINE 15 MG/ML VIAL IV ONE (19:41)
[2024-12-05] MEDS: ACETAMINOPHEN 1,000 MG/100 ML VIAL IV STA (19:42)
--- NOTE | 2024-12-05 23:12 | Hospitalist Progress Note ---
Date of Service December 05, 2024 Assessment & Plan (1) Diabetic ulcer of right lower leg: (2) Acute on chronic urinary retention: (3) Acute hypernatremia: (4) Leukocytosis: (5) Type 2 diabetes mellitus with diabetic neuropathy, unspecified: Plan #Diabetic ulcer of right lower leg Patient sustained an injury a few weeks ago. Patient does not recall what exactly provoked the injury. Consulted ortho Consulted wound care will place on empiric antibiotics zosyn and vanco. D/W ortho, appears patient does not require antibiotics, however will keep on empiric abx until wound care sees patient. Patient does not need intervention by ortho and wound curt be closed by secondary intention ordered wound culture: wound appears clean, will continue abx while in house but plan to discharge on 12/06 #headache ordered migraine cocktail #Hx chronic diastolic heart failure: EF 50-55%, continue metoprolol #Hx CAD s/p stent: Continue DAPT/statin #Hx orthostatic hypotension: Continue midodrine #Hx DM2: A1c 7.9 last October 2023, SSI/sugars controlled for now A1C over 12. #Hx anxiety/mood disorder: Continue buspirone/bupropion Admission and Anticipated Discharge Date Admission Date: December 03, 2024 Subjective Patient complaining of a headache, appears moderate in intensity. Patient has had this headache in the past. Physical Exam Constitutional: WD/WN, vitals as above Eyes: PERRL, conjunctivae normal, anicteric sclerae ENMT: external ear and nose normal, oropharynx normal Neck: trachea midline, no thyromegaly Respiratory: normal respiratory effort, lungs clear to auscultation Cardiovascular: RRR, no murmur, no edema Gastrointestinal (Abdomen): normal bowel sounds, soft, nontender, no hepatosplenomegaly Musculoskeletal: no cyanosis or clubbing, extremities motor strength 5/5 Neurologic: PERRL, EOMI, accommodation nl, no face palsy, no dysarthria Psychiatric: A+Ox3, euthymic affect Lymphatic: no cervical or axillary lymphadenopathy Results & Data Results & Data Vital Signs (Past 12 Hours) Vital Signs Temp Pulse Pulse Resp BP Pulse Ox O2 Del Method 12/05/24 22:46 88 12/05/24 20:52 37.1 C 92 H 18 176/105 H 97 Room Air 12/05/24 20:00 Room Air 12/05/24 17:32 36.8 C 81 19 168/106 H 97 Room Air 12/05/24 12:07 36.8 C 89 18 130/78 96 Room Air PG Care Time/CCT Total # of Minutes Spent Total Time Spent with Patient: Total time spent is greater than 50% in coordination of care (as documented) at patient's floor/unit and/or counseling patient: Coding Level of Care Code 94867 SUB INP/OBS CARE 2/35MIN Diagnoses Diabetic ulcer of right lower leg E11.622; L97.919 Acute on chronic urinary retention R33.9 Acute hypernatremia E87.0 Leukocytosis D72.829 Type 2 diabetes mellitus with diabetic neuropathy, unspecified E11.40
[2024-12-06] MEDS: diphenhydrAMINE 50 MG/ML VIAL IV STA (01:41)
[2024-12-06 06:20] LABS: Hematocrit (blood only) 34.8 % (42.0-52.0); Hemoglobin 10.6 g/dl (14.0-18.0); Mean Corpuscular Hemoglobin 24.8 pg (25.0-34.0); Mean Corpuscular Volume 81.3 fL (80.0-100.0); Platelet Count 493 K/uL (130-400); RDW Standard Deviation 44.8 fL (36.4-46.3); Red Blood Count 4.28 M/uL (4.70-6.10); White Blood Count 12.31 K/ul (4.8-10.8)
[2024-12-06 06:45] LABS: Anion Gap 5.0 (3-11); Blood Urea Nitrogen 16.0 mg/dl (6-23); Calcium 8.5 mg/dl (8.6-10.3); Carbon Dioxide 27.0 mmol/L (21-32); Chloride 107.0 mmol/L (98-107); Creatinine Clr Calc Pharmacy 76.3 ml/min; Glucose 209.0 mg/dl (70-99(Fasting)); Potassium 3.9 mmol/L (3.5-5.1); Sodium 139.0 mmol/L (136-145)
[2024-12-06] MEDS: clonazePAM 0.5 MG TAB PO PRN (07:15)
--- NOTE | 2024-12-06 07:49 | Hospitalist Progress Note ---
Date of Service December 06, 2024 Assessment & Plan (1) Diabetic ulcer of right lower leg: (2) Acute on chronic urinary retention: (3) Acute hypernatremia: (4) Leukocytosis: (5) Type 2 diabetes mellitus with diabetic neuropathy, unspecified: Plan Patient is a 49-year-old insulin for diabetic presents with concern for low right lower extremity diabetic leg infection after traumatic injury 2 weeks prior to admission. Patient has endorgan damage and diabetes chronic neurogenic bladder requiring straight caths at home. #Diabetic ulcer of right lower leg Patient sustained an injury a few weeks ago. Consulted ortho no surgical intervention is required close by secondary intent Consulted wound care continues on empiric antibiotics zosyn and vanco. ordered wound culture: wound appears clean, will continue abx while in house but plan to discharge on 12/06 #headache/earache ordered migraine cocktail #Hx chronic diastolic heart failure: EF 50-55%, continue metoprolol #Hx CAD s/p stent: Continue DAPT/statin #Hx orthostatic hypotension: Continue midodrine #Hx DM2: A1c 7.9 last October 2023, SSI/sugars controlled for now A1C over 12. #Hx anxiety/mood disorder: Continue buspirone/bupropion Admission and Anticipated Discharge Date Admission Date: December 03, 2024 Subjective pt is having some ear pain that is crescendo decrescendo and intermittent other her is weak and not quite strong enough to go home Physical Exam Physical Exam: Pt is now in no distress did inspect ears and has some retraction to the right TM but otherwise is normal cardiac is regular, lungs are clear RLE wound is open but clean and dry Results & Data Results & Data Vital Signs (Past 12 Hours) Vital Signs Temp Pulse Pulse Resp BP BP Pulse Ox 12/06/24 02:42 98.4 F 88 18 175/107 H 97 12/06/24 01:19 88 165/97 H 12/05/24 22:46 88 12/05/24 20:52 98.8 F 92 H 18 176/105 H 97 12/05/24 20:00 O2 Del Method 12/06/24 02:42 Room Air 12/06/24 01:19 12/05/24 22:46 12/05/24 20:52 Room Air 12/05/24 20:00 Room Air Laboratory Results review cbc review chemistry PG Care Time/CCT Total # of Minutes Spent Total Time Spent with Patient: Total time spent is greater than 50% in coordination of care (as documented) at patient's floor/unit and/or counseling patient: Coding Level of Care Code 43492 SUB INP/OBS CARE 3/50MIN Diagnoses Diabetic ulcer of right lower leg E11.622; L97.919 Acute on chronic urinary retention R33.9 Acute hypernatremia E87.0 Leukocytosis D72.829 Type 2 diabetes mellitus with diabetic neuropathy, unspecified E11.40
[2024-12-06] MEDS: HYDROmorphone INJ 0.5 MG/0.5 ML SYR IV STA (08:24)
[2024-12-06] MEDS ORDERED: LIDOCAINE 4% OP SOLN DROP CHARGE TOP PRN (09:01)
[2024-12-06] MEDS: TETRACAINE HCL 0.5% OP PRN (11:58)
[2024-12-06] MEDS: KETOROLAC 30 MG/ML VIAL IV ONE (15:20)
[2024-12-06] MEDS: CETIRIZINE HCL 10 MG TABLET PO ONE (15:20)
[2024-12-07 06:41] LABS: Creatinine Clr Calc Pharmacy 73.4 ml/min
[2024-12-07] MEDS: CETIRIZINE HCL 10 MG TABLET PO SCH (07:29)
[2024-12-07] MEDS: LANTUS PER UNIT CHARGE SC SCH (09:52)
--- NOTE | 2024-12-07 10:44 | Hospitalist Progress Note ---
Date of Service December 07, 2024 Assessment & Plan (1) Diabetic ulcer of right lower leg: (2) Acute on chronic urinary retention: (3) Acute hypernatremia: (4) Leukocytosis: (5) Type 2 diabetes mellitus with diabetic neuropathy, unspecified: Plan 49-year-old insulin dependent diabetic with right lower extremity diabetic leg infection after traumatic injury 2 weeks prior to admission. #Diabetic ulcer of right lower leg - -culture with klebsiella & MRSA -low-grade fevers this am; patient feeling unwell -exposed tendon now present -s/p ortho consult earlier this admission - surgical intervention not advised at that time -appreciate wound care assistance; remains on santyl's with optifoam -in light of low-grade fevers will obtain MRI w/ contrast of RLE - r/o osteomyelitis, r/o tenosynovitis, r/o abscess, etc. -cont IV zosyn and vanco -consider reculture of wound given low-grade fevers #headache/earache - -did not c/o such during today's visit #chronic diastolic heart failure - -compensated -most recent echo with EF 50-55% -cont meto succ 50mg BID #Hx CAD s/p stent - Continue DAPT/statin #Hx orthostatic hypotension - -BPs elevated today, even during orthostatic checks -will cont midodrine but lower to 2.5mg BID -orthostasis 2nd to diabetic autonomic neuropathy? #uncontrolled T2DM - -current A1C >12% -appreciate pharmacy glycemic team assistance -cont basal-bolus insulin #Hx anxiety/mood disorder - -Continue buspirone/bupropion #DVT proph - -if after ortho eval tomorrow no surgical debridement is needed will add heparin or lovenox SC #neurogenic bladder - -follows with [facility] [place] [facility] -at home - CIC qid -here - pierce in place -urine cx grew cheyanne glabrata - if fevers persist consider Rx but defer for now; suspect fever is from his RLE wound PT/OT evals requested it appears pt's gabapentin, cymbalta, baclofen are on hold - will confirm with patient if taking these at home care briefly d/w Emma Martinez from wound care care d/w bedside nursing Admission and Anticipated Discharge Date Admission Date: December 03, 2024 Subjective patient with low-grade fever this am and simply does not feel that great he c/o mild discomfort over the site of his right lower extremity wound appetite fair-good denies other infectious symptoms tele overnight wnl has had limited activity in the hospital I spoke directly to Emma Martinez from wound care - there is a small amount of tendon exposure in his right LE wound Review of Systems Review of Systems: gen - feels cold this am cv - no cp, no orthopnea pulm - no dyspnea GI - no abd pain Physical Exam Physical Exam: gen - lying in bed, NAD mouth - MMM, no thrush neck - no JVD heart - RRR, s1 s2, no murmur lungs - CTA b/l abd - soft NT ND BS+ vascular - right popliteal pulse 1+, right foot pulses 2+; left foot pulses 2+ ext - no edema of feet skin - distal RLE, posterior inferior calf area - irregularly shaped deep ulcer with tiny portion of exposed tendon; exudative drainage; granulation present at the wound border; no foul odor; no surrounding cellulitis - pierce in place, clear yellow urine Results & Data Results & Data Vital Signs (Past 12 Hours) Vital Signs Temp Pulse Resp BP BP Pulse Ox O2 Del Method 12/07/24 09:00 156/80 H 12/07/24 07:47 37.8 C H 106 H 20 210/110 H 189/111 H 95 Room Air 12/07/24 02:48 37.2 C 94 H 19 169/99 H 95 Room Air 12/06/24 22:59 37.1 C 94 H 18 160/82 H 97 Room Air Laboratory Results Laboratory Results - last 24 hr 12/04/24 12/06/24 12/06/24 19:50 11:38 16:37 Creatinine Est Cr Clr Drug Dosing eGFR POC Glucose 200 H 153 H C-Reactive Protein Misc Micro Test Pending 12/06/24 12/07/24 12/07/24 20:39 05:41 07:39 Creatinine 1.35 Est Cr Clr Drug Dosing 73.4 eGFR 64.76 POC Glucose 263 H 191 H C-Reactive Protein Pending Misc Micro Test Diagnostic Findings Microbiology 12/04/24 11:50 Leg,Right Gram Stain - Final 12/04/24 11:50 Leg,Right Wound Culture - Final Klebsiella pneumoniae Staph aureus MRSA 12/04/24 19:50 Urine,Indwelling Cath Urine Culture - Preliminary Cheyanne glabrata 12/03/24 16:11 Blood Aerobic Blood Culture - Preliminary No growth in Aerobic bottle after 48 hours. 12/03/24 16:11 Blood Anaerobic Blood Culture - Preliminary No growth in Anaerobic bottle after 48 hours. 12/03/24 15:56 Blood Aerobic Blood Culture - Preliminary No growth in Aerobic bottle after 48 hours. 12/03/24 15:56 Blood Anaerobic Blood Culture - Preliminary No growth in Anaerobic bottle after 48 hours. 12/03/24 16:22 Urine,Straight Cath Urine Culture - Final Three types of organisms present, all high counts. Repeat collection recommended. No further identifications or sensitivities to follow. PG Care Time/CCT Total # of Minutes Spent Total Time Spent with Patient: Total time spent is greater than 50% in coordination of care (as documented) at patient's floor/unit and/or counseling patient: Coding Level of Care Code 01082 SUB INP/OBS CARE 3/50MIN Diagnoses Diabetic ulcer of right lower leg E11.622; L97.919 Acute on chronic urinary retention R33.9 Acute hypernatremia E87.0 Leukocytosis D72.829 Type 2 diabetes mellitus with diabetic neuropathy, unspecified E11.40
--- NOTE | 2024-12-07 13:48 | Pharmacy Report ---
Pharmacy Glycemic Short Note 2 - Date of Service December 07, 2024 - Glycemic Short BSG Results (Last 24 hours): 12/06/24 12/06/24 12/07/24 16:37 20:39 07:39 POC Glucose 153 H 263 H 191 H 12/07/24 11:46 POC Glucose 175 H OUTPATIENT ANTIDIABETIC REGIMEN: * Trulicity 1.5 mg weekly * Jardiance 10 mg PO daily * Metformin 1G BID * A1C: 12.2% ASSESSMENT: 12/07: * Shashi received a total of 95units of insulin yesterday (40 units were basal and 55 units were bolus). BSGs were still all above goal yesterday. * Fasting BSG was 191mg/dL this morning. Increased AM Lantus to 30 units, though he was only given 25 units this morning, so increased the doses of the Lantus scale for HS (now 0,15, or 20 units depending on BSG). * Carb ratio was also tightened this morning. 12/05: * Shashi received 75 units of insulin yesterday (24 were basal) * Fasting BSG this AM above goal range, appears to be requiring significantly more insulin than in previous admissions. Unclear reasoning, infection? * NovoLog tightened to a weight based stress of 3. He continues on vancomycin and Zosyn. Lunchtime BSG elevated, one time IV regular insulin bolus given to help bring BSGs down. 12/04: * Patient admitted with a diabetic ulcer of right lower leg sustained after a fall a few weeks ago currently on vanco and zosyn. * Patient BSGs elevated on arrival but fasting today improved to 140mg/dL after 20 units of Lantus administered yesterday at dinner time. * Will use moderate stress weight based dosing in conjunction with previous data for initial dosing recommendations. * Patient is ordered and tolerating a diet. PLAN FOR INPATIENT GLYCEMIC CONTROL: * Hold outpatient oral diabetes medications * Basal insulin * Lantus 25 units SQ this morning, then Lantus 30 units QAM starting tomorrow * Lantus 0, 15, or 20 units SQ HS (see eMAR for additions) * Bolus insulin * NovoLog per scale ACHS or Q6hrs while NPO * Goal Range: Low 110 mg/dL - High 140 mg/dL * Correction Factor: 20 mg/dL/unit * Nutritional / Prandial insulin per carb ratio of 1 unit per 5 grams CHO consumed
[2024-12-07] MEDS: GADOBUTROL 65ML VIAL IV ONE (13:55)
--- NOTE | 2024-12-07 14:50 | Pharmacy Report ---
Pharmacy PK ABX Note - Date of Service December 07, 2024 - Assessment and Plan Assessment 12/07: Vancomycin level today was 15.7mcg/mL which extrapolates to an AUC/JIGAR in the target range. Continue vancomycin without change * Right leg culture from 12/04 grew K. pneumoniae and MRSA (vanco JIGAR = 1); Preliminary blood cultures from 12/03 are no growth; Repeat urine culture grew > 100,000 Cheyanne glabrata * Patient has been afebrile and has had fairly stable renal function, but continues to have leukocytosis. 12/05: Reviewed vancomycin level, predicting therapeutic AUC/JIGAR, continue current regimen. Urine culture with 3+ organisms, repeat drawn yesterday evening. Blood cultures NG x24 hours. WBC still elevated, patient afebrile. Renal function stable. 12/04: 49 year old M receiving vancomycin and zosyn for treatment of possible SSTI. Patient sustained an injury a few weeks ago resulting in an ulcer of right lower leg. Pertinent microbiologic data includes: Positive MRSA Nasal Swab, blood cultures pending. Day # 5 of antimicrobial therapy. Plan Vancomycin * Vancomycin level today was 15.7mcg/mL which extrapolates to an AUC24 of 494mg/L.hr * Continue maintenance dose: 750 mg IV every 12 hours * Regimen is predicted to achieve target AUC/JIGAR of 400-600 mg/L.hr * Another level will be ordered in the next few days or an clinically necessary. Pharmacy will continue to follow and will adjust dose/frequency as necessary. Thank you. Pharmacy has transitioned to AUC monitoring for vancomycin. AUC/JIGAR is the preferred PK/PD target and is associated with decreased risk of nephrotoxicity compared to traditional trough targets.
[2024-12-07] MEDS: VANCOMYCIN LEVEL ONE (15:00)
--- NOTE | 2024-12-07 15:33 | Magnetic Resonance Report ---
MR lower leg RT wo/w con CLINICAL HISTORY: R distal leg ulcer, exposed tendon; ?OM? COMPARISON STUDY: X-ray of 12/03/2024 FINDINGS: There is motion artifact. Skin markers were placed at the lower lateral aspect of the right lower leg in the region of the soft tissue ulcer. There is a soft tissue ulcer extending from the sk in to adjacent to the posterior aspect of the distal fibula shaft. There is adjacent subcutaneous sof t tissue and muscular edema consistent with cellulitis/myositis. No soft tissue abscess. No evidence of osteomyelitis seen. No fracture seen. IMPRESSION: No evidence of osteomyelitis seen. Otherwise as described. ACT 112: Negative or not required by law. Electronically signed by: Zach Graff M.D. 12/07/2024 3:32 PM
[2024-12-07] MEDS: MIDODRINE HCL 2.5 MG TAB PO SCH (17:32)
[2024-12-08 05:51] LABS: Hematocrit (blood only) 32.1 % (42.0-52.0); Hemoglobin 10.0 g/dl (14.0-18.0); Mean Corpuscular Hemoglobin 25.4 pg (25.0-34.0); Mean Corpuscular Volume 81.7 fL (80.0-100.0); Platelet Count 481 K/uL (130-400); RDW Standard Deviation 45.3 fL (36.4-46.3); Red Blood Count 3.93 M/uL (4.70-6.10); White Blood Count 14.88 K/ul (4.8-10.8)
[2024-12-08 06:12] LABS: Anion Gap 10.0 (3-11); Blood Urea Nitrogen 21.0 mg/dl (6-23); Calcium 8.2 mg/dl (8.6-10.3); Carbon Dioxide 22.0 mmol/L (21-32); Chloride 102.0 mmol/L (98-107); Creatinine Clr Calc Pharmacy 64.0 ml/min; Glucose 150.0 mg/dl (70-99(Fasting)); Immature Granulocytes # (auto) 0.24 K/uL (0.01-0.20); Immature Granulocytes % (auto) 1.6 %; Polychromasia 1+; Potassium 3.7 mmol/L (3.5-5.1); Sodium 134.0 mmol/L (136-145)
[2024-12-08] MEDS: WATER IR SCH (13:45)
[2024-12-08] MEDS: [UNRECOGNIZED DRUG - OTHER] IR SCH (13:45)
[2024-12-08] MEDS: STERILE IR SCH (13:45)
--- NOTE | 2024-12-08 20:42 | Hospitalist Progress Note ---
Date of Service December 08, 2024 Assessment & Plan (1) Diabetic ulcer of right lower leg: (2) Acute on chronic urinary retention: (3) Acute hypernatremia: (4) Leukocytosis: (5) Type 2 diabetes mellitus with diabetic neuropathy, unspecified: (6) Catheter-associated urinary tract infection: (7) Candidal UTI (urinary tract infection): Plan 49-year-old insulin dependent diabetic with right lower extremity diabetic leg infection after traumatic injury 2 weeks prior to admission. #Diabetic ulcer of right lower leg - -culture with klebsiella & MRSA -continues with low-grade fevers despite broad-spectrum IV abx therapy of zosyn/vanco -exposed tendon now present with ongoing purulence -fortunately MRI does not show osteomyelitis or abscess formation -s/p ortho consult earlier this admission - surgical intervention not advised at that time -however, due to persistence of low-grade fevers and the appearance of the wound, I reached out to Dr Lepe from ortho this am -after review Dr Lepe plans to take Mr Mo[place] to OR tomorrow to perform debridement and place a wound vac -patient made aware -NPO after MN tonight -appreciate wound care assistance; appreciate ortho assistance -until tomorrow continue santyl's with optifoam -cont IV zosyn and vanco #headache/earache - -again did not c/o such during today's visit #chronic diastolic heart failure - -compensated -most recent echo with EF 50-55% -cont meto succ 50mg BID #Hx CAD s/p stent - Continue DAPT/statin #Hx orthostatic hypotension - -cont midodrine 2.5mg BID -orthostasis 2nd to diabetic autonomic neuropathy? #uncontrolled T2DM - -current A1C >12% -appreciate pharmacy glycemic team assistance -cont basal-bolus insulin #Hx anxiety/mood disorder - -Continue buspirone/bupropion #DVT proph - -add heparin or lovenox SC after tomorrow's debridement procedure has been completed #neurogenic bladder - -[place] [facility] [place]at home - CIC qid -here - pierce in place #fungal UTI - complicated/catheter related - -urine cx with cheyanne glabrata, sensitivities pending -I do not believe he has upper tract infection -will utilize amphotericin bladder wash x 5 days as fluconazole does not treat c glabrata PT/OT evals it appears pt's gabapentin, cymbalta, baclofen are on hold - will confirm with patient if taking these at home care d/w Dr Lepe care d/w pharmacy Admission and Anticipated Discharge Date Admission Date: December 03, 2024 Subjective had low-grade temperature again last pm still doesn't feel that great fortunately he is eating well no major changes in his RLE wound tele overnight with [facility] Review of Systems Review of Systems: GI - had 2 loose stools earlier today, no abd pain psych - some anxiety; offered to schedule klonipin - he declined cv - no chest pain pulm - no dyspnea Physical Exam Physical Exam: gen - lying in bed, NAD, a little anxious mouth - MMM, no thrush neck - no JVD heart - RRR, s1 s2, no murmur lungs - CTA b/l abd - soft NT ND BS+ vascular - b/l foot pulses 1-2+ ext - no edema of feet skin - distal RLE, posterior inferior calf area - irregularly shaped deep ulcer with tiny portion of exposed tendon; exudative drainage; granulation present at the wound border; still no surrounding cellulitis - pierce in place Results & Data Results & Data Vital Signs (Past 12 Hours) Vital Signs Temp Pulse Pulse Pulse Resp BP Pulse Ox 12/08/24 19:20 37.7 C H 99 H 16 148/94 H 96 12/08/24 15:30 37.1 C 92 H 19 148/88 H 97 12/08/24 15:00 94 H 12/08/24 11:14 37.3 C 96 H 19 124/77 95 O2 Del Method 12/08/24 19:20 Room Air 12/08/24 15:30 Room Air 12/08/24 15:00 12/08/24 11:14 Room Air Laboratory Results Laboratory Results - last 24 hr 12/08/24 12/08/24 12/08/24 05:22 07:34 11:39 Immature Gran % (Auto) 1.6 Neut % (Auto) 53.9 Lymph % (Auto) 28.8 Craig % (Auto) 11.3 Eos % (Auto) 3.5 Baso % (Auto) 0.9 Neut # (Auto) 8.03 H Lymph # (Auto) 4.28 H Craig # (Auto) 1.68 H Eos # (Auto) 0.52 H Baso # (Auto) 0.13 Immature Gran # (Auto) 0.24 H Polychromasia 1+ Echinocytes 1+ Sodium 134 L Potassium 3.7 Chloride 102 Carbon Dioxide 22 Anion Gap 10 BUN 21 Creatinine 1.55 H Est Cr Clr Drug Dosing 64.0 eGFR 54.87 BUN/Creatinine Ratio 13.5 Glucose 150 H POC Glucose 171 H 205 H Calcium 8.2 L Diagnostic Findings Microbiology 12/04/24 11:50 Leg,Right Gram Stain - Final 12/04/24 11:50 Leg,Right Wound Culture - Final Klebsiella pneumoniae Staph aureus MRSA 12/04/24 19:50 Urine,Indwelling Cath Urine Culture - Preliminary Cheyanne glabrata 12/03/24 16:11 Blood Aerobic Blood Culture - Preliminary No growth in Aerobic bottle after 48 hours. 12/03/24 16:11 Blood Anaerobic Blood Culture - Preliminary No growth in Anaerobic bottle after 48 hours. 12/03/24 15:56 Blood Aerobic Blood Culture - Preliminary No growth in Aerobic bottle after 48 hours. 12/03/24 15:56 Blood Anaerobic Blood Culture - Preliminary No growth in Anaerobic bottle after 48 hours. 12/03/24 16:22 Urine,Straight Cath Urine Culture - Final Three types of organisms present, all high counts. Repeat collection recommended. No further identifications or sensitivities to follow. Lower Extremity MRI 12/07/24 10:44 MR lower leg RT wo/w con CLINICAL HISTORY: R distal leg ulcer, exposed tendon; ?OM? COMPARISON STUDY: X-ray of 12/03/2024 FINDINGS: There is motion artifact. Skin markers were placed at the lower lateral aspect of the right lower leg in the region of the soft tissue ulcer. There is a soft tissue ulcer extending from the skin to adjacent to the post erior aspect of the distal fibula shaft. There is adjacent subcutaneous soft tissue and muscular edema consistent with cellulitis/myositis. No soft tissue abscess. No evidence of osteomyelitis seen. No fracture seen. IMPRESSION: No evidence of osteomyelitis seen. Otherwise as described. ACT 112: Negative or not required by law. Electronically signed by: Zach Graff M.D. 12/07/2024 3:32 PM PG Care Time/CCT Total # of Minutes Spent Total Time Spent with Patient: Total time spent is greater than 50% in coordination of care (as documented) at patient's floor/unit and/or counseling patient: Coding Level of Care Code 11972 SUB INP/OBS CARE 3/50MIN Diagnoses Diabetic ulcer of right lower leg E11.622; L97.919 Acute on chronic urinary retention R33.9 Acute hypernatremia E87.0 Leukocytosis D72.829 Type 2 diabetes mellitus with diabetic neuropathy, unspecified E11.40 Catheter-associated urinary tract infection T83.511A; N39.0 Candidal UTI (urinary tract infection) B37.49
[2024-12-08] MEDS: MELATONIN 3 MG TAB PO PRN (21:11)
[2024-12-09 05:58] LABS: Creatinine Clr Calc Pharmacy 65.2 ml/min
[2024-12-09] MEDS ORDERED: DEXAMETHASONE SOD INJ 4 MG/ML VIAL ONE (08:15)
[2024-12-09] MEDS ORDERED: PROPOFOL IV EMULSION 10 MG/ML 20 ML VIAL IV ONE (08:15)
[2024-12-09] MEDS ORDERED: SUGAMMADEX SODIUM 200 MG/2 ML VIAL IV ONE (08:15)
[2024-12-09] MEDS ORDERED: ROCURONIUM BROMIDE 10 MG/ML 5 ML VIAL IV ONE (08:15)
[2024-12-09] MEDS ORDERED: ONDANSETRON INJ 2 MG/ML 2 ML VIAL ONE (08:15)
--- NOTE | 2024-12-09 08:42 | Orthopedic Progress Note ---
Date of Service December 09, 2024 Assessment & Plan (1) Open wound, lower leg: (2) Diabetic ulcer of right lower leg: Plan 49-year-old male with difficult to control diabetes mellitus and right lower leg full-thickness posttraumatic wound with ulceration and cavitary progression. He had failed to respond adequately to superficial wound care at the bedside. White count continued to rise. For these reasons, I offered surgical debridement and irrigation and likely application of wound VAC to expedite wound healing and prevent prolonged infection. I reviewed the risk, benefits, and alternatives with the patient. He was agreeable to proceed with surgical care that I described. Informed consent was documented preoperative holding area. Provisional plan will be to change the wound VAC in 48-72 hours and have this taken over by the wound care team as they see fit. Subjective Hospitalists report general malaise and lack of progress with wound care. Patient amenable to recommended treatment. Review of Systems All systems reviewed & are unremarkable except as noted in HPI & below. Physical Exam RLE: Wound continues to have some fibrinous and necrotic slough. No obvious surrounding cellulitis. DNVI. Constitutional WD/WN, vitals as above no acute distress and not intoxicated appearing Respiratory normal respiratory effort; no labored breathing Cardiovascular Extremities: normal capillary refill Results & Data Results & Data Laboratory Results H & H 12/03/24 12/05/24 12/06/24 Range/Units 15:47 06:02 06:02 Hgb 12.5 L 10.0 L 10.6 L (14.0-18.0) g/dl Hct 39.6 L 31.6 L 34.8 L (42.0-52.0) % 12/08/24 Range/Units 05:22 Hgb 10.0 L (14.0-18.0) g/dl Hct 32.1 L (42.0-52.0) % Microbiology 12/03/24 16:11 Aerobic Blood Culture - Final Blood No growth in Aerobic bottle after 5 days. Anaerobic Blood Culture - Final No growth in Anaerobic bottle after 5 days. 12/03/24 15:56 Aerobic Blood Culture - Final Blood No growth in Aerobic bottle after 5 days. Anaerobic Blood Culture - Final No growth in Anaerobic bottle after 5 days. Diagnostic Findings MRI shows no obvious deep abscesses. Some edema through the surrounding tissue from the open wound. PG Care Time/CCT Total # of Minutes Spent Total Time Spent with Patient: Total time spent is greater than 50% in coordination of care (as documented) at patient's floor/unit and/or counseling patient: Coding Level of Care Code 16700 SUB INP/OBS CARE 50MIN Diagnoses Open wound, lower leg S81.809A Diabetic ulcer of right lower leg E11.622; L97.919
[2024-12-09] MEDS ORDERED: HYDROmorphone INJ 1 MG/ML SYRINGE IV PRN (08:46)
[2024-12-09] MEDS ORDERED: ATROPINE SULFATE 0.1 MG/ML 10ML SYR IV PRN (08:46)
[2024-12-09] MEDS ORDERED: ONDANSETRON INJ 2 MG/ML 2 ML VIAL IV PRN (08:46)
--- NOTE | 2024-12-09 08:46 | Anesthesiology Consultation ---
Date of Service December 09, 2024 Assessment & Plan ASA ASA3 Proposed Anesthesia Anesthesia Type: General Risk / Benefits Reviewed With: PT / POA / Parent / Guardian, Accepts Plan and Informed Consent Obtained History Surgery Operation Date: 12/09/24 08:00 Proposed Procedures p Incision and Drainage Right Leg with Application of Wound Vac(Right) - Artie Lepe MD Height/Weight Height: 6 ft Weight: 83.4 kg Allergies Allergy/AdvReac Type Severity Reaction Status Date / Time adhesive Allergy Intermediate Contact Verified 12/03/24 17:33 dermatitis latex Allergy Mild RASH Verified 12/03/24 17:33 tramadol Allergy Unknown n/v Verified 12/03/24 17:33 Medications Home Medications Medication Instructions Recorded Confirmed Last Taken montelukast 10 mg tablet 10 mg PO QAM 06/16/22 12/03/24 12/03/24 pantoprazole 40 mg tablet,delayed 40 mg PO QAM 06/16/22 12/03/24 12/03/24 release aspirin 81 mg tablet,delayed 81 mg PO QAM 01/31/23 12/03/24 12/03/24 release duloxetine 60 mg capsule,delayed 60 mg PO QAM 01/31/23 12/03/24 12/03/24 release atorvastatin 40 mg tablet 40 mg PO QAM 10/19/23 12/03/24 12/03/24 clonazepam 0.5 mg tablet 0.5 mg PO BID PRN Anxiety 10/19/23 12/03/24 Unknown clopidogrel 75 mg tablet 75 mg PO DAILYBL 10/19/23 12/03/24 12/03/24 dulaglutide 1.5 mg/0.5 mL 1.5 mg subcut WK 10/19/23 12/03/24 11/21/24 subcutaneous pen injector ([facility]) duloxetine 30 mg capsule,delayed 30 mg PO QAM 10/19/23 12/03/24 12/03/24 release ramelteon 8 mg tablet 8 mg PO HS PRN Sleep 10/19/23 12/03/24 Unknown metoprolol succinate 50 mg 50 mg PO BID #60 tabs 03/17/24 12/03/24 12/03/24 tablet,extended release 24 hr baclofen 20 mg tablet 20 mg PO BID 12/03/24 12/03/24 12/03/24 bupropion HCl 150 mg 24 hr tablet, 150 mg PO QAM 12/03/24 12/03/24 12/03/24 extended release bupropion HCl 300 mg 24 hr tablet, 300 mg PO QAM 12/03/24 12/03/24 12/03/24 extended release buspirone 15 mg tablet 15 mg PO BID 12/03/24 12/03/24 12/03/24 empagliflozin 10 mg tablet 10 mg PO QAM 12/03/24 12/03/24 12/03/24 (Jardiance) gabapentin 300 mg capsule 300 mg PO TID 12/03/24 12/03/24 12/03/24 metformin 500 mg tablet,extended 1,000 mg PO BID 12/03/24 12/03/24 12/03/24 release 24 hr midodrine 5 mg tablet See Rx Instructions .Route .COMPLEX 12/03/24 12/03/24 12/03/24 Active Medications Generic Name Dose Route Start Last Admin Trade Name Freq PRN Reason Stop Dose Admin Acetaminophen 650 mg 12/03/24 17:15 12/08/24 21:11 Acetaminophen 325 Mg Tab PO 01/02/25 17:14 650 mg Q4H PRN Administration Pain or Fever Atorvastatin Calcium 40 mg 12/04/24 09:00 12/09/24 08:02 Atorvastatin 40 Mg Tab PO 01/03/25 08:59 40 mg QAM MAE Administration Bupropion HCl 450 mg 12/04/24 09:00 12/09/24 08:01 Bupropion Xl 150 Mg Tabcr PO 01/03/25 08:59 450 mg QAM MAE Administration Buspirone HCl 10 mg 12/03/24 21:00 12/09/24 08:02 Buspirone 5 Mg Tab PO 01/02/25 20:59 10 mg BID MAE Administration Cetirizine HCl 10 mg 12/07/24 09:00 12/09/24 08:02 Cetirizine Hcl 10 Mg Tablet PO 01/06/25 08:59 10 mg DAILY MAE Administration Clonazepam 0.5 mg 12/03/24 18:51 12/08/24 21:11 Clonazepam 0.5 Mg Tab PO 01/02/25 18:50 0.5 mg BID PRN Administration Anxiety Collagenase 1 appln 12/05/24 12:00 12/08/24 10:51 Collagenase Oint 30 Gm Tube EXT 01/04/25 11:59 1 appln DAILY MAE Administration Piperacillin Sod/Tazobactam Sod 4.5 gm in 100 mls @ 25 mls/hr 12/03/24 22:00 12/09/24 06:05 Zosyn IV 12/10/24 21:59 25 mls/hr Q8H MAE Administration Protocol Vancomycin HCl 750 mg/ Sodium 265 mls @ 200 mls/hr 12/04/24 01:00 12/09/24 02:46 Chloride IV 12/11/24 00:59 Infused Q12H MAE Infusion Amphotericin B 50 mg/ Sterile 1,010 mls @ 42.083 mls/hr 12/08/24 12:30 12/08/24 13:45 Water IR 12/13/24 12:29 42.1 mls/hr .Q24H MAE Administration Insulin Aspart 0 units 12/03/24 17:30 12/09/24 07:58 Insulin Aspart Per Unit Charge SC 01/02/25 17:29 5 units ACHS MAE Administration Insulin Glargine 0 units 12/05/24 21:00 12/08/24 20:26 Lantus Per Unit Charge SC 01/04/25 20:59 25 units HS MAE Administration Protocol Insulin Glargine 30 units 12/07/24 09:00 12/09/24 07:58 Lantus Per Unit Charge SC 01/06/25 08:59 30 units DAILY MAE Administration Lactobacillus Acidophilus 1,250 mg 12/04/24 09:00 12/09/24 08:01 Advanced Probiotic 625 Mg Capsule PO 01/03/25 08:59 1,250 mg DAILY MAE Administration Melatonin 3 mg 12/04/24 10:34 12/08/24 21:11 Melatonin 3 Mg Tab PO 01/03/25 10:33 3 mg HSZ PRN Administration Sleep Protocol Metoprolol Succinate 50 mg 12/03/24 21:00 12/09/24 08:02 Metoprolol Succ 50mg Ext Rel Tab PO 01/02/25 20:59 50 mg BID MAE Administration Midodrine 2.5 mg 12/07/24 17:00 12/09/24 08:01 Midodrine Hcl 2.5 Mg Tab PO 01/06/25 16:59 2.5 mg BID17 MAE Administration Miscellaneous 1 each 12/04/24 08:59 12/08/24 08:34 Remove Nicoderm Patch N/A 01/03/25 08:58 Not Given DAILY@0859 MAE Montelukast Sodium 10 mg 12/04/24 09:00 12/09/24 08:02 Montelukast Sodium 10 Mg Tablet PO 01/03/25 08:59 10 mg QAM MAE Administration Nicotine 1 patch 12/04/24 09:00 12/08/24 08:32 Nicotine 14 Mg/24 Hr Patch TD 01/03/25 08:59 1 patch DAILY MAE Administration Oxybutynin Chloride 10 mg 12/04/24 09:00 12/09/24 08:02 Oxybutynin Chloride Xl 5 Mg Tabcr PO 01/03/25 08:59 10 mg QAM MAE Administration Oxycodone HCl 5 mg 12/03/24 18:51 12/08/24 11:34 Oxycodone Hcl Ir 5 Mg Tab (Immediate Release) PO 12/17/24 18:50 5 mg Q6H PRN Administration pain Pantoprazole Sodium 40 mg 12/04/24 09:00 12/09/24 08:02 Pantoprazole 40 Mg Tab PO 01/03/25 08:59 40 mg QAM MAE Administration Polyethylene Glycol 17 gm 12/04/24 09:00 12/08/24 08:30 Polyethylene (Miralax) 17 Gm Pack PO 01/03/25 08:59 Not Given DAILY MAE Senna/Docusate Sodium 1 tab 12/04/24 09:00 12/09/24 08:00 Docusate Sodium/Senna 50/8.6mg Tab PO 01/03/25 08:59 Not Given QAM MAE Tetracaine HCl 4 drops 12/06/24 09:59 12/07/24 22:04 Tetracaine Hcl 0.5% (Ophth) 60 Drops/4 Ml Btl OP 01/05/25 09:58 4 drops Q6H PRN Administration OTALGIA Thiamine HCl 100 mg 12/04/24 09:00 12/09/24 08:02 Thiamine Hcl 100 Mg Tab PO 01/03/25 08:59 100 mg QAM MAE Administration Vitamin D 25 mcg 12/04/24 11:30 12/08/24 11:35 Cholecalciferol 25 Mcg (1000 Units) Tab PO 01/03/25 11:29 25 mcg QDL MAE Administration Past Medical History Medical History Myocardial strain Noncompliance Central retinal artery occlusion, left eye Diabetic peripheral neuropathy Exercise / Class Metabolic Activity II 4-5 Yardwork/Stairs/Walk up hill Past Family History Family History Other Cancer Diabetes Hypertension Past Surgical History Surgical History S/P arthroscopic knee surgery History of dental surgery Past Anesthesia History No Hx of Anesthesia Complications and No Family Hx of Anesthesia Complications History of PONV No Hx of PONV and No Hx of Motion Sickness Social History Smoking Status: Former smoker Do You Dip or Chew Tobacco: Yes Hx Alcohol Use: Yes Alcohol type: beer alcohol intake frequency: holidays/special occasions only Hx Substance Use: No substance use type: marijuana Last Used Substance: Days (ago) Last Used Substance Other:: Urine tox came back positive for ecstasy, benzos, and marijuana Review of Systems denies fever/cough/ colds/ chest pain/ SOB/ DEVIN denies DEVIN Physical Exam Vital Signs Last Vital Signs Temp 37.1 C 12/09/24 07:06 Pulse 93 H 12/09/24 07:06 Resp 23 12/09/24 07:06 BP 165/106 H 12/09/24 07:06 Pulse Ox 97 12/09/24 07:06 O2 Del Method Room Air 12/09/24 07:06 ENMT Mouth: + dentition abnormality (most teeth missing); no TMJ abnormality Thyromental Distance: > or= 3.5 Finger Breadths Mallampati Class: IV Neck + facial hair; neck extension not limited Respiratory normal respiratory effort; no respiratory distress Auscultation: lungs clear to auscultation bilaterally Cardiovascular Rate/Rhythm: regular rate and regular rhythm Neurologic moves all extremities Psychiatric Orientation: alert and oriented x 3 Testing Laboratory Results 12/08/24 05:22 12/09/24 04:56 Hemoglobin A1c 12.2 % (4.5-5.6) H 12/04/24 05:28 Urine Color Yellow 12/03/24 16:22 Urine Appearance Turbid (Clear) A 12/03/24 16:22 Urine pH 5.0 (4.5-7.5) 12/03/24 16:22 Ur Specific G[place]n 1.016 (1.000-1.030) 12/03/24 16:22 Urine Protein 2+ (Negative) H 12/03/24 16:22 Urine Glucose (UA) 2+ (Negative) H 12/03/24 16:22 Urine Ketones Trace (Negative) H 12/03/24 16:22 Urine Nitrite Negative (Negative) 12/03/24 16:22 Ur Leukocyte Esterase 3+ (Negative) H 12/03/24 16:22 Urine WBC (Auto) >50 /hpf (0-5) 12/03/24 16:22 Urine RBC (Auto) 0-2 /hpf (0-4) 12/03/24 16:22 U Hyaline Cast (Auto) 0-2 /lpf (0-5) 12/03/24 16:22 U Epithel Cells (Auto) 0-2 /lpf (0-5) 12/03/24 16:22 Urine Bacteria (Auto) 4+ (Negative) H 12/03/24 16:22 12/03/24 16:11 Aerobic Blood Culture - Final Blood No growth in Aerobic bottle after 5 days. Anaerobic Blood Culture - Final No growth in Anaerobic bottle after 5 days. 12/03/24 15:56 Aerobic Blood Culture - Final Blood No growth in Aerobic bottle after 5 days. Anaerobic Blood Culture - Final No growth in Anaerobic bottle after 5 days. 12/04/24 11:50 Gram Stain - Final Leg,Right Wound Culture - Final Klebsiella pneumoniae Staph aureus MRSA 12/04/24 19:50 Urine Culture - Preliminary Urine,Indwelling Cath Cheyanne glabrata 12/03/24 16:22 Urine Culture - Final Urine,Straight Cath Three types of organisms present, all high counts. Repeat collection recommended. No further identifications or sensitivities to follow. 12/09/24 07:03 POC Glucose 235 H
[2024-12-09] MEDS ORDERED: PHENYLEPHRINE 100MCG/ML 5ML SYR ONE (09:41)
[2024-12-09] MEDS: VANCOMYCIN HCL 1000MG/20ML VIAL ONE (09:44)
--- NOTE | 2024-12-09 10:27 | Operative Report ---
PG Post Operative Report Pre & Post Diagnosis Operation Date: 12/09/24 08:00 Pre-Op Diagnosis: Open Wound- Right Lower Leg Post-Op Diagnosis: Open Wound- Right Lower Leg I identified the patient and participated in the time-out.: Yes Procedure Operation Date: 12/09/24 08:00 Actual Procedures p irrigation and debridement of right Leg ulcerative wound with Application of Wound Vac(Right) - Artie Lepe MD Surgeon Artie Lepe MD Licensed Mental Health Professional None Estimated Blood Loss 25 Findings See Below Fibrinous and necrotic skin edge on the posterior wound with some desiccated tendinous debris and necrotic muscle tissue, likely posttraumatic. Initial wound size was 5 cm x 5 cm. A vertical limb was able to be approximated safely to cover peroneal tendons with fresh skin edges, reducing the wound to 2.5 x 2.5 cm, for wound VAC application. Specimens 1 deep swab culture Anesthesia Type General Complications none Disposition Accompanied Patient To Recovery: No Disposition: Recovery Room Indications 49-year-old male complicated blood sugar control was admitted after a laceration type injury to his right lower leg. The full-thickness ulcerative wound with tendon and fascial exposure had failed to make significant progress with bedside wound management, the patient developed general malaise, and the white count seem to remain elevated, so I offered surgical debridement and management of the wound. I discussed the risk, benefits, and alternatives to this approach with the patient, and he was agreeable to surgical care. Informed consent for an irrigation and debridement and wound VAC application as needed was performed in the preoperative holding area. Description of Procedure On the day of surgery, the patient was greeted in the preoperative holding area. The informed consent was reviewed and confirmed by myself and the patient. The patient identified the surgical site and was marked by me. The patient was then turned over to anesthesia. He was taken to the operating room and placed supine on the OR table. Anesthesia was induced, and the airway was secured. He was then rolled in the lateral decubitus position to operate on his right leg. All bony prominences were well-padded. There was an axillary roll placed. A nonsterile tourniquet was placed high on the calf and a barrier drape was applied. The right lower extremity was then prepped and draped in the usual sterile fashion with Betadine scrub and paint for the open wound. Surgical timeout was and verified by all present. Antibiotics had been up-to-date with his scheduled dosing, and equipment was available and functional. Initiated the wound with a general inspection of the wound. The widest portion was 5 cm in the longest portion was 5 cm. Superficial debridement was conducted sharply using tenotomy scissors. There was generalized bleeding, as expected. The posterior skin edge was necrotic and had some necrotic underlying adipose tissue. This was sharply excised using a 15 blade. The limb then elevated and the tourniquet was inflated to 250 mmHg. Wound expiration continued. It did track between the peroneal muscles and deep to the gastroc. There was necrotic muscle tissue in the zone of full-thickness skin loss. Perhaps this was from a traumatic mechanism. Necrotic and nonviable muscle was all excised sharply. There were peroneal tendons exposed and the more anterior portion of the wound. The tenosynovium was necrotic and fibrinous, so was excised sharply. There is also some finnegan and necrotic appearing fascia that was sharply excised from the peroneal tendon group. Patient was then placed under the lamina and 3 L of normal saline by flow irrigation was performed using cystoscopy tubing and gravity flow. I continued the mechanical debridement of nonviable tissue. After 3 L, the tourniquet was left down. Hemostasis was achieved using electrocautery and some engorged veins between the peroneal muscles. Minimal cautery was used. With hemostasis achieved and a clean wound bed, remove for another 3 L cystoscopy tubing irrigation. After completion, the drapes were all freshened and gloves were changed. All instrumentation from the debridement had been moved to a different side of the surgical table. There was a vertical limb at the inferior portion of the wound that had some potential for approximation without significant tension. 2 nylon vertical mattress sutures using 2-0 suture were performed and this approximated easily and well. This did close down the wound and cover up some of the exposed peroneal tendons. The wound was measured to be about 25 x 25 mm at this point. Because it was cavitary and deep and tracked to the muscle fibers, I felt that negative pressure would help approximate this area close down the negative space better than simple dry dressings to be changed. For that reason, a wound VAC was called for. The wound VAC application was performed by cutting the material down the size and including an incisional VAC extension from the wound sponge. The VAC dressing was applied to gain seal and then the suction device was applied through a separate perforation. We gained a seal using the surgical suction and then transferred the suction onto the negative pressure machine. We put the settings of the 125 mmHg with low continuous suction. There was a good seal check. The drapes were then taken down and the wound VAC dressing was protected using an ABD, contained by Webril and an Rajinder wrap. The patient tolerated the procedure well without complication, was rolled supine, extubated the operating room, and transferred to the recovery area in stable condition. Disposition: He will be transferred back to his inpatient room after PACU recovery. The wound VAC should continue for at least 48 to 72 hours before changing evaluation. I will request that the wound care team continue their management of this. He can be managed as an outpatient for this full-thickness skin wound when the inpatient hospitalist team deems him ready for to do so from an infection standpoint. I attest to the content of the Intraoperative Record and any orders documented therein. Any exceptions are noted below.
--- NOTE | 2024-12-09 12:22 | Anesthesiology Progress Note ---
Date of Service December 09, 2024 Anesthesia Post Procedure Vital Signs Vital Signs: Temp Pulse Pulse Pulse Resp BP Pulse Ox 12/09/24 11:00 85 21 144/85 H 97 12/09/24 10:45 85 22 125/84 98 12/09/24 10:35 36.8 C 86 17 134/82 97 12/09/24 10:25 84 15 131/84 97 12/09/24 10:15 85 18 129/80 98 12/09/24 10:07 36.5 C 85 20 135/61 98 12/09/24 08:00 92 H 12/09/24 07:06 37.1 C 93 H 23 165/106 H 97 12/09/24 03:03 37.0 C 98 H 16 153/91 H 96 12/08/24 22:51 37.2 C 103 H 16 158/95 H 94 12/08/24 21:55 102 H 12/08/24 19:20 37.7 C H 99 H 16 148/94 H 96 12/08/24 15:30 37.1 C 92 H 19 148/88 H 97 12/08/24 15:00 94 H O2 Del Method O2 Flow Rate 12/09/24 11:00 Room Air 12/09/24 10:45 Room Air 12/09/24 10:35 Room Air 12/09/24 10:25 Room Air 12/09/24 10:15 Oxymask 3 12/09/24 10:07 Oxymask 6 12/09/24 08:00 12/09/24 07:06 Room Air 12/09/24 03:03 Room Air 12/08/24 22:51 Room Air 12/08/24 21:55 12/08/24 19:20 Room Air 12/08/24 15:30 Room Air 12/08/24 15:00 Pain Intensity Right Posterior Head: Pain Intensity: 4 Transfer of Care Handoff Completed per policy Notes Mental Status: alert / awake / arousable and participated in evaluation Patient Amnestic to Procedure: Yes Nausea / Vomiting: adequately controlled Pain: adequately controlled Airway Patency, RR, SpO2: stable & adequate BP & HR: stable & adequate Hydration State: stable & adequate Anesthetic Complications: no major complications apparent and Pt Satisfied with anesthetic care
--- NOTE | 2024-12-09 16:56 | Hospitalist Progress Note ---
Date of Service December 09, 2024 Assessment & Plan (1) Diabetic ulcer of right lower leg: (2) Acute on chronic urinary retention: (3) Acute hypernatremia: (4) Leukocytosis: (5) Type 2 diabetes mellitus with diabetic neuropathy, unspecified: (6) Catheter-associated urinary tract infection: (7) Candidal UTI (urinary tract infection): Plan 49-year-old insulin dependent diabetic with right lower extremity diabetic leg infection after traumatic injury 2 weeks prior to admission. #Diabetic ulcer of right lower leg - -culture with klebsiella & MRSA -had continued with low-grade fevers last couple of days despite broad-spectrum IV abx therapy of zosyn/vanco -exposed tendon present in the wound bed -fortunately MRI did not show osteomyelitis or abscess formation -s/p ortho consult earlier this admission - surgical intervention not advised at that time -however, due to persistence of low-grade fevers and the appearance of the wound, I reached out to Dr Lepe from ortho on 12/08 -after review Dr Lepe recommended debridement of the ulcer/wound and placement of a wound vac -this surgical intervention occurred this am w/o incident -appreciate wound care assistance; appreciate ortho assistance by Dr Lepe -deep wound culture sent today by Dr Lepe -cont IV zosyn and vanco while awaiting new culture result -will need ongoing wound care and wound vac management by Wound care team and Wound clinic #chronic diastolic heart failure - -compensated -most recent echo with EF 50-55% -cont meto succ 50mg BID #Hx CAD s/p stent - Continue DAPT/statin #Hx orthostatic hypotension - -cont midodrine 2.5mg BID (of note - dose reduced from 5mg BID to 2.5mg BID as supine BP readings were very high, sometimes >200) -orthostasis 2nd to diabetic autonomic neuropathy? #uncontrolled T2DM - -current A1C >12% -appreciate pharmacy glycemic team assistance -cont basal-bolus insulin #Hx anxiety/mood disorder - -Continue buspirone/bupropion -resume cymbalta - uncertain why it was on hold #DVT proph - -if no significant bleeding from RLE wound add lovenox tomorrow am #neurogenic bladder - -follows with [facility] -at home - CIC qid -here - pierce in place #fungal UTI - complicated/catheter related - -urine cx with cheyanne glabrata, sensitivities pending (sent to [facility]) -I do not believe he has upper tract infection -will utilize amphotericin bladder wash x 5 days as fluconazole does not treat c glabrata -today is day #2 of 5 of Rx #diabetic neuropathy - -resume gabapentin 300mg TID PT/OT evals Admission and Anticipated Discharge Date Admission Date: December 03, 2024 Subjective tele overnight wnl this am had debridement of RLE ulcer by Dr Lepe along with placement of woundvac I saw him following his procedure; he was resting in bed comfortably he had multiple questions about the wound vac, his disposition, etc. tolerating amphotericin bladder wash no new complaints eating well Review of Systems Review of Systems: gen - no fevers or chills cv - no cp, no orthopnea pulm - no dyspnea GI - no diarrhea Physical Exam Physical Exam: gen - lying in bed, NAD, comfortable mouth - MMM, no thrush neck - no JVD heart - RRR, s1 s2, no murmur lungs - CTA b/l abd - soft NT ND BS+ vascular - b/l foot pulses 1-2+ with normal perfusion ext - no peripheral edema skin - distal RLE with woundvac in place Results & Data Results & Data Vital Signs (Past 12 Hours) Vital Signs Temp Pulse Pulse Pulse Resp BP Pulse Ox 12/09/24 15:24 37.3 C 90 20 135/78 99 12/09/24 14:49 92 H 12/09/24 11:00 85 21 144/85 H 97 12/09/24 10:45 85 22 125/84 98 12/09/24 10:35 36.8 C 86 17 134/82 97 12/09/24 10:25 84 15 131/84 97 12/09/24 10:15 85 18 129/80 98 12/09/24 10:07 36.5 C 85 20 135/61 98 12/09/24 08:00 92 H 12/09/24 07:06 37.1 C 93 H 23 165/106 H 97 O2 Del Method O2 Flow Rate 12/09/24 15:24 Room Air 12/09/24 14:49 12/09/24 11:00 Room Air 12/09/24 10:45 Room Air 12/09/24 10:35 Room Air 12/09/24 10:25 Room Air 12/09/24 10:15 Oxymask 3 12/09/24 10:07 Oxymask 6 12/09/24 08:00 12/09/24 07:06 Room Air Laboratory Results Laboratory Results - last 24 hr 12/08/24 12/08/24 12/09/24 16:52 20:05 04:56 Creatinine 1.52 H Est Cr Clr Drug Dosing 65.2 eGFR 56.17 POC Glucose 128 H 226 H 12/09/24 12/09/24 12/09/24 07:03 10:14 12:13 Creatinine Est Cr Clr Drug Dosing eGFR POC Glucose 235 H 205 H 242 H 12/09/24 16:55 Creatinine Est Cr Clr Drug Dosing eGFR POC Glucose 281 H Diagnostic Findings Microbiology 12/09/24 09:23 Leg,Right Gram Stain - Final 12/03/24 16:11 Blood Aerobic Blood Culture - Final No growth in Aerobic bottle after 5 days. 12/03/24 16:11 Blood Anaerobic Blood Culture - Final No growth in Anaerobic bottle after 5 days. 12/03/24 15:56 Blood Aerobic Blood Culture - Final No growth in Aerobic bottle after 5 days. 12/03/24 15:56 Blood Anaerobic Blood Culture - Final No growth in Anaerobic bottle after 5 days. 12/04/24 11:50 Leg,Right Gram Stain - Final 12/04/24 11:50 Leg,Right Wound Culture - Final Klebsiella pneumoniae Staph aureus MRSA 12/04/24 19:50 Urine,Indwelling Cath Urine Culture - Preliminary Cheyanne glabrata 12/03/24 16:22 Urine,Straight Cath Urine Culture - Final Three types of organisms present, all high counts. Repeat collection recommended. No further identifications or sensitivities to follow. PG Care Time/CCT Total # of Minutes Spent Total Time Spent with Patient: Total time spent is greater than 50% in coordination of care (as documented) at patient's floor/unit and/or counseling patient: Coding Level of Care Code 47190 SUB INP/OBS CARE 2/35MIN Diagnoses Diabetic ulcer of right lower leg E11.622; L97.919 Acute on chronic urinary retention R33.9 Acute hypernatremia E87.0 Leukocytosis D72.829 Type 2 diabetes mellitus with diabetic neuropathy, unspecified E11.40 Catheter-associated urinary tract infection T83.511A; N39.0 Candidal UTI (urinary tract infection) B37.49
[2024-12-09] MEDS: BACLOFEN 20 MG TAB PO SCH (20:42)
[2024-12-09] MEDS: GABAPENTIN 300 MG CAP PO SCH (20:42)
[2024-12-10] MEDS: INSULIN ASPART PER UNIT CHARGE SC SCH ×2 (00:55→04:04)
[2024-12-10 05:48] LABS: Hematocrit (blood only) 27.7 % (42.0-52.0); Hemoglobin 8.6 g/dl (14.0-18.0); Mean Corpuscular Hemoglobin 25.3 pg (25.0-34.0); Mean Corpuscular Volume 81.5 fL (80.0-100.0); Platelet Count 459 K/uL (130-400); RDW Standard Deviation 46.4 fL (36.4-46.3); Red Blood Count 3.40 M/uL (4.70-6.10); White Blood Count 14.83 K/ul (4.8-10.8)
[2024-12-10 06:03] LABS: Anion Gap 5.0 (3-11); Blood Urea Nitrogen 24.0 mg/dl (6-23); Calcium 8.0 mg/dl (8.6-10.3); Carbon Dioxide 25.0 mmol/L (21-32); Chloride 106.0 mmol/L (98-107); Creatinine Clr Calc Pharmacy 77.5 ml/min; Glucose 285.0 mg/dl (70-99(Fasting)); Magnesium 1.6 mg/dl (1.7-2.4); Potassium 4.0 mmol/L (3.5-5.1); Sodium 136.0 mmol/L (136-145)
[2024-12-10] MEDS: LANTUS PER UNIT CHARGE SC SCH (08:23)
[2024-12-10] MEDS: MAGNESIUM SULFATE / D5W 1 GM/100 ML BAG IV SCH (08:28)
--- NOTE | 2024-12-10 13:41 | Hospitalist Progress Note ---
Date of Service December 10, 2024 Assessment & Plan (1) Diabetic ulcer of right lower leg: (2) Acute on chronic urinary retention: (3) Acute hypernatremia: (4) Leukocytosis: (5) Type 2 diabetes mellitus with diabetic neuropathy, unspecified: (6) Catheter-associated urinary tract infection: (7) Candidal UTI (urinary tract infection): (8) Lethargy: Plan 49-year-old insulin dependent diabetic with right lower extremity diabetic leg infection after traumatic injury 2 weeks prior to admission. #lethargy - -likely combination of being up all night last pm as well as medication side effects (large doses of baclofen - newly resumed, gabapentin, etc) -HOLD baclofen -stop gabapentin -change oxy to norco for pain in the event oxy is causing sedation -checked VBG - no CO2 retention -checked ammonia - normal -B12 borderline low - this is chronic - supplement -needs better sleep hygiene #Diabetic ulcer of right lower leg - -culture with klebsiella & MRSA -had continued with low-grade fevers last couple of days despite broad-spectrum IV abx therapy of zosyn/vanco -exposed tendon present in the wound bed -fortunately MRI did not show osteomyelitis or abscess formation -s/p ortho consult earlier this admission - surgical intervention not advised at that time -however, due to persistence of low-grade fevers and the appearance of the wound, I reached out to Dr Lepe from ortho on 12/08 -after review Dr Lepe recommended debridement of the ulcer/wound and placement of a wound vac -this surgical intervention occurred this am w/o incident -appreciate wound care assistance; appreciate ortho assistance by Dr Lepe -deep wound culture from OR growing staph -- likely to be MRSA which previously grew -cont IV zosyn and vanco -will need ongoing wound care and wound vac management by Wound care team and Wound clinic -will ask ID in am to see in consult for abx recs given the nature of this wound #chronic diastolic heart failure - -compensated -most recent echo with EF 50-55% -cont meto succ 50mg BID #Hx CAD s/p stent - Continue DAPT/statin #HTN, but with known orthostatic hypotension - -cont midodrine 2.5mg BID (of note - dose reduced from 5mg BID to 2.5mg BID as supine BP readings were very high, sometimes >200) -orthostasis 2nd to diabetic autonomic neuropathy? -cont meto succ 50 BID -uncertain why he is not on REJI or ARB given his DM #uncontrolled T2DM - -current A1C >12% -appreciate pharmacy glycemic team assistance -cont basal-bolus insulin #Hx anxiety/mood disorder - -Continue buspirone/bupropion -resumed cymbalta - uncertain why it was on hold - I did confirm indeed he takes 90mg/day (follows with psych) #DVT proph - -start lovenox daily #neurogenic bladder - -follows with [facility] -at home - CIC qid -here - pierce in place -he wants pierce upon discharge home #fungal UTI - complicated/catheter related - -urine cx with charles glabrata, sensitivities pending (sent to [facility]) -I do not believe he has upper tract infection -will utilize amphotericin bladder wash x 5 days as fluconazole does not treat c glabrata -today is day #3 of 5 of Rx #diabetic neuropathy - -resumed gabapentin 300mg TID, but he does not want to take thus will stop #dyspnea - -o2 sats wnl and lung exam for the most part normal (minimal b/l basilar dry rales) -cxr obtained - no infiltrates or edema -anxiety? -if it persists, however, consider CTA chest PT/OT [facility] pt's mother updated by phone this evening Admission and Anticipated Discharge Date Admission Date: December 03, 2024 Subjective tele - NSR overnight saw patient 2x's today first was on AM rounds apparently he was up all night - could not sleep this am he was visibly more tired than usual he voiced that he stopped the gabapentin about 1 month on his own because he didn't notice any difference in his neuropathy being on it thus, he would like to stop it he reports his cymbalta was just increased by his psychiatrist recently to 90mg/day he c/o mild dyspnea and he had a cough yesterday but minimal cough today no chest pain eating well - near 100% of meals reports mild pain over the right leg wound area multiple questions answered about the woundvac late in the day received [place] correspondence from nursing that he slept much of the day, was hard to arouse, etc. I came to bedside about 1830 in the evening he was awake, and was eating a yogurt he was indeed sleepy but could carry a conversation & answer all my questions he did again state he was up all night he said that sometimes at home he does this and then will "sleep for like 2 days after" he also admits that his baclofen makes him tired; he was agreeable to holding it tonight denied any new complaints or issues since I saw him this am Review of Systems Review of Systems: cv - no chest pain pulm - dyspnea but minimal cough this evening GI - no pain, no diarrhea Physical Exam Physical Exam: gen - lying in bed, NAD, comfortable, more sleepy than usual mouth - MMM, no thrush neck - no JVD heart - RRR, s1 s2, no murmur lungs - CTA b/l abd - soft NT ND BS+ vascular - b/l foot pulses 1-2+ with normal perfusion ext - no peripheral edema skin - distal RLE with woundvac in place psych - oriented x 3 despite being sleepy Results & Data Results & Data Vital Signs (Past 12 Hours) Vital Signs Temp Pulse Pulse Resp BP Pulse Ox O2 Del Method 12/10/24 13:39 86 12/10/24 11:21 37.0 C 83 18 130/80 98 Room Air 12/10/24 07:43 36.9 C 77 18 150/87 H 97 Room Air 12/10/24 07:00 83 12/10/24 02:56 36.7 C 74 20 162/90 H 97 Room Air Laboratory Results Laboratory Results - last 48 hr 12/09/24 12/09/24 12/09/24 07:03 10:14 12:13 WBC RBC Hgb Hct MCV MCH MCHC RDW Std Deviation RDW Coeff of Pancho Plt Count MPV VBG pH VBG pCO2 VBG pO2 VBG HCO3 VBG O2 Saturation VBG Base Excess Sodium Potassium Chloride Carbon Dioxide Anion Gap BUN Creatinine Est Cr Clr Drug Dosing eGFR BUN/Creatinine Ratio Glucose POC Glucose 235 H 205 H 242 H Calcium Magnesium Ammonia Vitamin B12 12/09/24 12/09/24 12/10/24 16:55 20:17 00:25 WBC RBC Hgb Hct MCV MCH MCHC RDW Std Deviation RDW Coeff of Pancho Plt Count MPV VBG pH VBG pCO2 VBG pO2 VBG HCO3 VBG O2 Saturation VBG Base Excess Sodium Potassium Chloride Carbon Dioxide Anion Gap BUN Creatinine Est Cr Clr Drug Dosing eGFR BUN/Creatinine Ratio Glucose POC Glucose 281 H 290 H 247 H Calcium Magnesium Ammonia Vitamin B12 12/10/24 12/10/24 12/10/24 03:59 04:57 07:23 WBC 14.83 H RBC 3.40 L Hgb 8.6 L Hct 27.7 L MCV 81.5 MCH 25.3 MCHC 31.0 L RDW Std Deviation 46.4 H RDW Coeff of Pancho 15.6 H Plt Count 459 H MPV 10.9 VBG pH VBG pCO2 VBG pO2 VBG HCO3 VBG O2 Saturation VBG Base Excess Sodium 136 Potassium 4.0 Chloride 106 Carbon Dioxide 25 Anion Gap 5 BUN 24 H Creatinine 1.28 Est Cr Clr Drug Dosing 77.5 eGFR 69.04 BUN/Creatinine Ratio 18.8 Glucose 285 H POC Glucose 293 H 262 H Calcium 8.0 L Magnesium 1.6 L Ammonia Vitamin B12 12/10/24 12/10/24 12/10/24 11:29 16:33 19:57 WBC RBC Hgb Hct MCV MCH MCHC RDW Std Deviation RDW Coeff of Pancho Plt Count MPV VBG pH 7.37 VBG pCO2 47 VBG pO2 36 VBG HCO3 27 VBG O2 Saturation < 60.0 VBG Base Excess 1.3 Sodium Potassium Chloride Carbon Dioxide Anion Gap BUN Creatinine Est Cr Clr Drug Dosing eGFR BUN/Creatinine Ratio Glucose POC Glucose 202 H 123 H Calcium Magnesium Ammonia 19.0 Vitamin B12 312 Diagnostic Findings Microbiology 12/09/24 09:23 Leg,Right Gram Stain - Final 12/09/24 09:23 Leg,Right Aerobic and Anaerobic Culture - Preliminary Staphylococcus aureus 12/03/24 16:11 Blood Aerobic Blood Culture - Final No growth in Aerobic bottle after 5 days. 12/03/24 16:11 Blood Anaerobic Blood Culture - Final No growth in Anaerobic bottle after 5 days. 12/03/24 15:56 Blood Aerobic Blood Culture - Final No growth in Aerobic bottle after 5 days. 12/03/24 15:56 Blood Anaerobic Blood Culture - Final No growth in Anaerobic bottle after 5 days. 12/04/24 11:50 Leg,Right Gram Stain - Final 12/04/24 11:50 Leg,Right Wound Culture - Final Klebsiella pneumoniae Staph aureus MRSA 12/04/24 19:50 Urine,Indwelling Cath Urine Culture - Preliminary Charles glabrata 12/03/24 16:22 Urine,Straight Cath Urine Culture - Final Three types of organisms present, all high counts. Repeat collection recommended. No further identifications or sensitivities to follow. Chest X-Ray 12/10/24 13:38 Exam: Portable chest one view Reason for exam: Bilateral basilar rales and shortness of breath. Previous: 12/03/2024 FINDINGS: Cardiac size remains normal. Lungs remain free of active infiltrate, collapse or edema and no pleural effusion or pneumothorax is seen. IMPRESSION: No active cardiopulmonary disease seen at this time. Electronically signed by Zach Girard 12-10-2024 2:40 PM PG Care Time/CCT Total # of Minutes Spent Total Time Spent with Patient: Total time spent is greater than 50% in coordination of care (as documented) at patient's floor/unit and/or counseling patient: Coding Level of Care Code 91949 SUB INP/OBS CARE 3/50MIN Diagnoses Diabetic ulcer of right lower leg E11.622; L97.919 Acute on chronic urinary retention R33.9 Acute hypernatremia E87.0 Leukocytosis D72.829 Type 2 diabetes mellitus with diabetic neuropathy, unspecified E11.40 Catheter-associated urinary tract infection T83.511A; N39.0 Candidal UTI (urinary tract infection) B37.49 Lethargy R53.83
[2024-12-10] MEDS: ASPIRIN 81 MG ECTAB PO SCH (13:59)
[2024-12-10] MEDS: ENOXAPARIN INJ 40 MG/0.4 ML SYR SQ ONE (13:59)
--- NOTE | 2024-12-10 14:25 | Pharmacy Report ---
Pharmacy Glycemic Short Note 2 - Date of Service December 10, 2024 - Glycemic Short BSG Results (Last 24 hours): 12/09/24 12/09/24 12/10/24 16:55 20:17 00:25 Glucose POC Glucose 281 H 290 H 247 H 12/10/24 12/10/24 12/10/24 03:59 04:57 07:23 Glucose 285 H POC Glucose 293 H 262 H 12/10/24 11:29 Glucose POC Glucose 202 H OUTPATIENT ANTIDIABETIC REGIMEN: * Trulicity 1.5 mg weekly * Jardiance 10 mg PO daily * Metformin 1G BID * A1C: 12.2% ASSESSMENT: 12/10: * Insulin needs continue to increase. Shashi received a total of 100 units on 12/08 and 145 units on 12/09. * Shashi went to OR on 12/09 for R leg I&D with wound vac placement. Dexamethasone IV was likely given for procedure and could be cause of sustained hyperglycemia on 12/09. Novolog parameters were tightened to assist with steroid induced hyperglycemia. BSG now trending down and has been >24h since administration of steroid, therefore will back off short acting insulin. Novolog CF/CR of 24/10 was not enough previously, therefore will trial CF/CR 19/09. * Continue to titrate Lantus dose for fasting BSG hyperglycemia. 12/07: * Shashi received a total of 95units of insulin yesterday (40 units were basal and 55 units were bolus). BSGs were still all above goal yesterday. * Fasting BSG was 191mg/dL this morning. Increased AM Lantus to 30 units, though he was only given 25 units this morning, so increased the doses of the Lantus scale for HS (now 0,15, or 20 units depending on BSG). * Carb ratio was also tightened this morning. 12/05: * Shashi received 75 units of insulin yesterday (24 were basal) * Fasting BSG this AM above goal range, appears to be requiring significantly more insulin than in previous admissions. Unclear reasoning, infection? * NovoLog tightened to a weight based stress of 3. He continues on vancomycin and Zosyn. Lunchtime BSG elevated, one time IV regular insulin bolus given to help bring BSGs down. 12/04: * Patient admitted with a diabetic ulcer of right lower leg sustained after a fall a few weeks ago currently on vanco and zosyn. * Patient BSGs elevated on arrival but fasting today improved to 140mg/dL after 20 units of Lantus administered yesterday at dinner time. * Will use moderate stress weight based dosing in conjunction with previous data for initial dosing recommendations. * Patient is ordered and tolerating a diet. PLAN FOR INPATIENT GLYCEMIC CONTROL: * Hold outpatient oral diabetes medications * Basal insulin * Lantus 40 units SQ this morning (set to resume 30 units QAM tomorrow) * Lantus 20-30 units SQ HS (see eMAR for scale) * Bolus insulin * NovoLog per scale ACHS or Q6hrs while NPO * Goal Range: Low 110 mg/dL - High 140 mg/dL * Correction Factor: 15 mg/dL/unit * Nutritional / Prandial insulin per carb ratio of 1 unit per 4 grams CHO consumed
--- NOTE | 2024-12-10 14:40 | XRay Report ---
Exam: Portable chest one view Reason for exam: Bilateral basilar rales and shortness of breath. Previous: 12/03/2024 FINDINGS: Cardiac size remains normal. Lungs remain free of active infiltrate, collapse or edema and no pleural effusion or pneumothorax is seen. IMPRESSION: No active cardiopulmonary disease seen at this time. Electronically signed by Zach Girard 12-10-2024 2:40 PM
[2024-12-10 20:11] LABS: Base Excess VBG 1.3 mEq/L; HCO3 VBG 27 mmol/L; Oxygen Saturation VBG < 60.0 %; PCO2 VBG 47 mmHg (38-50); PO2 VBG 36 mmHg; pH VBG 7.37 (7.36-7.41)
[2024-12-10] MEDS: HYDROCODONE/ACETAMOPHEN 5/325MG TAB PO PRN (21:10)
--- NOTE | 2024-12-11 07:41 | Orthopedic Progress Note ---
Date of Service December 11, 2024 Assessment & Plan (1) Diabetic ulcer of right lower leg: Plan * Continue Current Treatment * Continue wound VAC, ok for future changes by wound care team * OR culture (+) Staph aureus, continue abx * Disposition: TBD * Daily treatment: Physical Therapy/ Occupational Therapy per protocol * Weight bearing status: WBAT * Continue to monitor for ABLA * Pain control * Office/hospital f/u 2 weeks for progress check and staple/suture removal * Remainder care per primary team * Stable for discharge from ortho standpoint, further planning per primary team Subjective .Active Problems: S/p RLE wound I&D, wound VAC application POD 2 49 y/o male s/p RLE wound I&D. Sleeping soundly at time of exam, no apparent distress. Doing well overall, pain managed and improved function. Denies fever/chills, chest pain/SOB, nausea/vomiting. Otherwise no complaints. Review of Systems All systems reviewed & are unremarkable except as noted in HPI & below. Physical Exam . * General: Alert and oriented, no acute distress * Constitutional: well-developed, well-nourished. * Respiratory: Normal respiratory effort, no distress * Gastrointestinal: No tenderness to palpation, no rigidity or guarding. * Skin: No rash or lesion. * Neurologic: Grossly normal * Musculoskeletal: RLE dressing intact, not removed for exam. Wound VAC dressing with good seal, scant bloody drainage in canister. Minimal tenderness of the surgical region/lower leg. AROM ankle dorsi/plantarflexion, toe flexion/extension intact. Sensation intact planter/dorsal foot. Brisk capillary refill. Results & Data Results & Data Laboratory Results . 12/09/24 09:23 Gram Stain - Final Leg,Right Aerobic and Anaerobic Culture - Preliminary Staph aureus MRSA 12/10/24 12/10/24 12/10/24 20:26 19:57 16:33 VBG pH 7.37 VBG pCO2 47 VBG pO2 36 VBG HCO3 27 VBG O2 Saturation < 60.0 VBG Base Excess 1.3 POC Glucose 227 H 123 H Ammonia 19.0 Vitamin B12 312 12/10/24 11:29 VBG pH VBG pCO2 VBG pO2 VBG HCO3 VBG O2 Saturation VBG Base Excess POC Glucose 202 H Ammonia Vitamin B12 Diagnostic Findings . PG Care Time/CCT Total # of Minutes Spent Total Time Spent with Patient: Total time spent is greater than 50% in coordination of care (as documented) at patient's floor/unit and/or counseling patient: Coding Level of Care Code 92890 Post Operative Follow-Up Diagnoses Diabetic ulcer of right lower leg E11.622; L97.919
[2024-12-11] MEDS: VANCOMYCIN 750 MG in SODIUM CHLORIDE 0.9% 250 ML IV SCH (08:38)
[2024-12-11] MEDS: ENOXAPARIN INJ 40 MG/0.4 ML SYR SQ SCH (08:45)
[2024-12-11] MEDS: CYANOCOBALAMIN (B-12) 500 MCG TABLET PO SCH (09:53)
[2024-12-11] MEDS: PIPERACILLIN/TAZOBACTAM 4.5 GM/100 ML BAG IV SCH (10:18)
[2024-12-11 10:48] LABS: Anion Gap 5.0 (3-11); Blood Urea Nitrogen 21.0 mg/dl (6-23); Calcium 8.5 mg/dl (8.6-10.3); Carbon Dioxide 26.0 mmol/L (21-32); Chloride 109.0 mmol/L (98-107); Creatinine Clr Calc Pharmacy 93.5 ml/min; Glucose 214.0 mg/dl (70-99(Fasting)); Magnesium 1.8 mg/dl (1.7-2.4); Potassium 3.9 mmol/L (3.5-5.1); Sodium 140.0 mmol/L (136-145)
--- NOTE | 2024-12-11 10:52 | Hospitalist Progress Note ---
Date of Service December 11, 2024 Assessment & Plan (1) Diabetic ulcer of right lower leg: (2) Acute on chronic urinary retention: (3) Acute hypernatremia: (4) Leukocytosis: (5) Type 2 diabetes mellitus with diabetic neuropathy, unspecified: (6) Catheter-associated urinary tract infection: (7) Candidal UTI (urinary tract infection): (8) Lethargy: (9) Chronic headaches: Plan 49-year-old insulin dependent diabetic with right lower extremity diabetic leg infection after traumatic injury 2 weeks prior to admission. #lethargy - -resolved -was likely combination of being up all night as well as medication side effects (large doses of baclofen - newly resumed, gabapentin, etc) #headaches - -uncertain etiology; given chronicity of the headaches and severity of them will obtain MRI brain w/ and w/o contrast -if negative perhaps headaches are cervical-based? #Diabetic ulcer of right lower leg - -culture early in the admission with klebsiella & MRSA -had continued with low-grade fevers last week despite broad-spectrum IV abx therapy of zosyn/vanco -exposed tendon present in the RLE wound bed -fortunately MRI did not show osteomyelitis or abscess formation -s/p ortho consult earlier this admission - surgical intervention not advised at that time -however, due to persistence of low-grade fevers and the appearance of the wound, I reached out to Dr Lepe from ortho on 12/08 -after review Dr Lepe recommended debridement of the ulcer/wound and placement of a wound vac -this surgical intervention occurred 12/09/24 w/o incident -appreciate wound care assistance; appreciate ortho assistance by Dr Lepe -deep wound culture from OR grew MRSA once again -will need ongoing wound care and wound vac management by Wound care team and Wound clinic -appreciate ID consultation; they recommended: -stop zosyn, change to IV ancef -for MRSA - cont vanco -at time of discharge change to doxycycline + augmentin and continue both thru 12/22/24 #chronic diastolic heart failure - -compensated -most recent echo with EF 50-55% -cont meto succ 50mg BID #Hx CAD s/p stent - Continue DAPT/statin #HTN, but with known orthostatic hypotension - -cont midodrine 2.5mg BID (of note - dose reduced from 5mg BID to 2.5mg BID as supine BP readings were very high, sometimes >200) -orthostasis 2nd to diabetic autonomic neuropathy? -cont meto succ 50 BID -uncertain why he is not on REJI or ARB given his DM #uncontrolled T2DM - -current A1C >12% -appreciate pharmacy glycemic team assistance -cont basal-bolus insulin #Hx anxiety/mood disorder - -Continue buspirone/bupropion -resumed cymbalta 90mg/day (follows with psych; I confirmed w/ him that this is indeed his dose) #neurogenic bladder - -follows with [facility] -at home - [facility] qid -here - pierce in place -he wants pierce upon discharge home #fungal UTI - complicated/catheter related - -urine cx with cheyanne glabrata, sensitivities pending (sent to [facility]) -I do not believe he has upper tract infection -cont amphotericin bladder wash x 5 days as fluconazole does not treat c glabrata -today is day #4 of 5 of Rx #diabetic neuropathy - -pt does not want to take gabapentin thus stopped #dyspnea - -o2 sats wnl and lung exam wnl -cxr obtained - no infiltrates or edema -anxiety? -if it persists, however, consider CTA chest #DVT proph - -lovenox daily PT/OT va appreciated pt's mother updated by phone yesterday evening dispo - rehab Admission and Anticipated Discharge Date Admission Date: December 03, 2024 Subjective patient reports ongoing headaches x 8 months present behind the right ear, and also occipital-temporal on right -- never frontal sharp/stabbing for a few seconds, then resolves, and can recur -- sometimes repeatedly numerous times no associated nausea or other symptoms with the headaches typically does NOT wake him from sleep no migraine history no ocular symptoms willing to go to rehab although he initially stated he did not want [facility], now agreeable to such did have ID consultation today Review of Systems Review of Systems: gen - no fevers or chills; continues to eat well cv - no cp, no orthopnea pulm - dyspnea improved GI - no diarrhea Physical Exam Physical Exam: gen - lying in bed, NAD, awake/alert head - no deformity or abnormality posterior auricular or occipital region mouth - MMM, no thrush neck - no JVD; ROM of neck largely intact without reproduced pain heart - RRR, s1 s2, no murmur lungs - CTA b/l abd - soft NT ND BS+ vascular - b/l foot pulses 1-2+ with normal perfusion ext - no peripheral edema skin - distal RLE with woundvac in place neuro - strength 5/5 x 4 exts; no facial droop Results & Data Results & Data Vital Signs (Past 12 Hours) Vital Signs Temp Pulse Pulse Resp BP Pulse Ox O2 Del Method 12/11/24 07:40 36.4 C L 86 16 165/100 H 95 Room Air 12/11/24 07:08 83 12/11/24 06:13 184/115 H 12/11/24 04:47 170/110 H 12/11/24 03:53 36.5 C 84 18 170/102 H 95 Room Air 12/11/24 03:45 174/92 H 12/10/24 23:36 36.5 C 76 18 118/76 97 Room Air Laboratory Results Laboratory Results - last 24 hr 12/11/24 12/11/24 12/11/24 07:50 09:47 11:22 Sodium 140 Potassium 3.9 Chloride 109 H Carbon Dioxide 26 Anion Gap 5 BUN 21 Creatinine 1.06 Est Cr Clr Drug Dosing 93.5 eGFR 86.57 BUN/Creatinine Ratio 19.8 Glucose 214 H POC Glucose 175 H 170 H Calcium 8.5 L Magnesium 1.8 Diagnostic Findings Microbiology 12/09/24 09:23 Leg,Right Gram Stain - Final 12/09/24 09:23 Leg,Right Aerobic and Anaerobic Culture - Preliminary Staph aureus MRSA 12/03/24 16:11 Blood Aerobic Blood Culture - Final No growth in Aerobic bottle after 5 days. 12/03/24 16:11 Blood Anaerobic Blood Culture - Final No growth in Anaerobic bottle after 5 days. 12/03/24 15:56 Blood Aerobic Blood Culture - Final No growth in Aerobic bottle after 5 days. 12/03/24 15:56 Blood Anaerobic Blood Culture - Final No growth in Anaerobic bottle after 5 days. 12/04/24 11:50 Leg,Right Gram Stain - Final 12/04/24 11:50 Leg,Right Wound Culture - Final Klebsiella pneumoniae Staph aureus MRSA 12/04/24 19:50 Urine,Indwelling Cath Urine Culture - Preliminary Cheyanne glabrata 12/03/24 16:22 Urine,Straight Cath Urine Culture - Final Three types of organisms present, all high counts. Repeat collection recommended. No further identifications or sensitivities to follow. PG Care Time/CCT Total # of Minutes Spent Total Time Spent with Patient: Total time spent is greater than 50% in coordination of care (as documented) at patient's floor/unit and/or counseling patient: Coding Level of Care Code 03753 SUB INP/OBS CARE 3/50MIN Diagnoses Diabetic ulcer of right lower leg E11.622; L97.919 Acute on chronic urinary retention R33.9 Acute hypernatremia E87.0 Leukocytosis D72.829 Type 2 diabetes mellitus with diabetic neuropathy, unspecified E11.40 Catheter-associated urinary tract infection T83.511A; N39.0 Candidal UTI (urinary tract infection) B37.49 Lethargy R53.83 Chronic headaches R51.9; G89.29
--- NOTE | 2024-12-11 13:54 | Infectious Disease Consult ---
Date of Consultation December 11, 2024 Assessment & Plan (1) Infectious tenosynovitis: (2) Diabetic ulcer of right lower leg: Plan Problems: #RLE infection #T2DM, poorly controlled Micro: 12/09 RLE wound OR cx: MRSA (S tetra, TMP/SMX) 12/04 RLE wound cx: Kleb pneumo (S amox/clav, cefaz, levo, pip/tazo. I cipro. R TMP/SMX) Abx: Vanc 12/03 - present Pip-tazo 12/03 - present 49 yo M with T2DM, self caths who presented on 12/03 with a persistent RLE wound from a syncopal episode over 2 weeks prior. He was noted to have an ulceration to the R posterior calf. Labs showed WBC 15, Cr 1.61, lactate 3.1, A1c 12.2. XR tib fib with no fracture or focal intraosseous abnormality. He was started on vanc, Zosyn. Ortho was consulted and noted nonviable tissue within a deep open wound, did not recommend surgical intervention at that time. Pt developed low grade temps up to 37.9 on 12/07, so MRI was performed which showed a soft tissue ulcer extending from the skin adjacent to the posterior aspect of the distal fibula shaft, adjacent subcutaneous soft tissue and muscular edema consistent with cellulitis/myositis, no soft tissue abscess, no osteomyelitis. Culture of the wound grew Klebsiella pneumoniae and MRSA. On 12/08, noted to have exposed tendon with ongoing purulence. Ortho was re-consulted and took the pt to the OR on 12/09 for I&D. Per operative note, there was necrotic muscle; peroneal tendons were exposed. Tenosynovium was necrotic. Mendes and necrotic appearing fascia was sharply excised from the peroneal tendon group. Wound vac applied. OR culture growing MRSA. Recommendations: - Can continue vancomycin for MRSA coverage - Stopped pip-tazo and started cefazolin for Klebsiella pneumoniae coverage - On discharge, can transition to doxycycline 100 mg PO BID and amox/clav 875 mg PO BID through 12/22 to complete a total 14 day course from the OR (including the IV antibiotics he has received here) - Can discontinue amphotericin--the Cheyanne glabrata in the urine likely represents a colonizer in the setting of self catheterization Will sign off. Consultation Information This patient recommendation is based on a telemedicine consult request which was completed asynchronously through chart review and information provided by the primary physician. The patient was not seen or examined today. The evaluation is consultative in nature and all patient care and treatment decisions can either be accepted or rejected by the patient's primary hospital-based treating physician using their own independent medical judgment for their patient. Stave Jointer contact information: Please call [facility] [phone]. (Phone Number For Physician Use Only) Time Spent Reviewing Chart: 31+ minutes History of Present Illness Reason for Consultation: RLE infection Attending Physician: Bolivar Mccollum MD History of Present Illness 49 yo M with T2DM, self caths who presented on 12/03 with a persistent RLE wound from a syncopal episode over 2 weeks prior. He was noted to have an ulceration to the R posterior calf. Labs showed WBC 15, Cr 1.61, lactate 3.1, A1c 12.2. XR tib fib with no fracture or focal intraosseous abnormality. He was started on vanc, Zosyn. Ortho was consulted and noted nonviable tissue within a deep open wound, did not recommend surgical intervention at that time. Pt developed low grade temps up to 37.9 on 12/07, so MRI was performed which showed a soft tissue ulcer extending from the skin adjacent to the posterior aspect of the distal fibula shaft, adjacent subcutaneous soft tissue and muscular edema consistent with cellulitis/myositis, no soft tissue abscess, no osteomyelitis. Culture of the wound grew Klebsiella pneumoniae and MRSA. On 12/08, noted to have exposed tendon with ongoing purulence. Ortho was re-consulted and took the pt to the OR on 12/09 for I&D. Per operative note, there was necrotic muscle; peroneal tendons were exposed. Tenosynovium was necrotic. Mendes and necrotic appearing fascia was sharply excised from the peroneal tendon group. Wound vac applied. OR culture growing MRSA. Allergies Allergy/AdvReac Type Severity Reaction Status Date / Time adhesive Allergy Intermediate Contact Verified 12/03/24 17:33 dermatitis latex Allergy Mild RASH Verified 12/03/24 17:33 tramadol Allergy Unknown n/v Verified 12/03/24 17:33 Home Medications Medication Instructions Recorded Confirmed Type montelukast 10 mg tablet 10 mg PO QAM 06/16/22 12/03/24 History pantoprazole 40 mg tablet,delayed 40 mg PO QAM 06/16/22 12/03/24 History release aspirin 81 mg tablet,delayed 81 mg PO QAM 01/31/23 12/03/24 History release duloxetine 60 mg capsule,delayed 60 mg PO QAM 01/31/23 12/03/24 History release atorvastatin 40 mg tablet 40 mg PO QAM 10/19/23 12/03/24 History clonazepam 0.5 mg tablet 0.5 mg PO BID PRN Anxiety 10/19/23 12/03/24 History clopidogrel 75 mg tablet 75 mg PO DAILYBL 10/19/23 12/03/24 History dulaglutide 1.5 mg/0.5 mL 1.5 mg subcut WK 10/19/23 12/03/24 History subcutaneous pen injector (Trulicity) duloxetine 30 mg capsule,delayed 30 mg PO QAM 10/19/23 12/03/24 History release ramelteon 8 mg tablet 8 mg PO HS PRN Sleep 10/19/23 12/03/24 History metoprolol succinate 50 mg 50 mg PO BID #60 tabs 03/17/24 12/03/24 Rx tablet,extended release 24 hr baclofen 20 mg tablet 20 mg PO BID 12/03/24 12/03/24 History bupropion HCl 150 mg 24 hr tablet, 150 mg PO QAM 12/03/24 12/03/24 History extended release bupropion HCl 300 mg 24 hr tablet, 300 mg PO QAM 12/03/24 12/03/24 History extended release buspirone 15 mg tablet 15 mg PO BID 12/03/24 12/03/24 History empagliflozin 10 mg tablet 10 mg PO QAM 12/03/24 12/03/24 History (Jardiance) gabapentin 300 mg capsule 300 mg PO TID 12/03/24 12/03/24 History metformin 500 mg tablet,extended 1,000 mg PO BID 12/03/24 12/03/24 History release 24 hr midodrine 5 mg tablet See Rx Instructions .Route .COMPLEX 12/03/24 12/03/24 History Patient History Medical History Myocardial strain Noncompliance Central retinal artery occlusion, left eye Diabetic peripheral neuropathy Surgical History S/P arthroscopic knee surgery History of dental surgery Family History Other Cancer Diabetes Hypertension Social History Smoking Status: Former smoker Tobacco Type: Smokeless Tobacco (Dip or Chew) Second Hand Exposure: No; Do You Dip or Chew Tobacco: Yes; Hx Alcohol Use: Yes Alcohol type: beer Hx Substance Use: No Preferred Language: Marshallese Communication Ability: Effective Visual Impairment: No Limitations Name Plate Stamper Required: No Beliefs That Will Affect Care: None Current Living Situation: Family Current Living Situation Comment: with parents Feels Safe at Home: Yes Assistive Devices: Cane, Walker and Wheelchair Results & Data Vital Signs (Past 12 Hours) Vital Signs Temp Pulse Pulse Resp BP Pulse Ox O2 Del Method 12/11/24 10:54 36.6 C 90 20 149/91 H 97 Room Air 12/11/24 07:40 36.4 C L 86 16 165/100 H 95 Room Air 12/11/24 07:08 83 12/11/24 06:13 184/115 H 12/11/24 04:47 170/110 H 12/11/24 03:53 36.5 C 84 18 170/102 H 95 Room Air 12/11/24 03:45 174/92 H Laboratory Results [facility] 12/11/24 09:47 Sodium 140 Potassium 3.9 Chloride 109 H Carbon Dioxide 26 BUN 21 Creatinine 1.06 Glucose 214 H Calcium 8.5 L Medications Administered Current Inpatient Medications Acetaminophen (Acetaminophen 325 Mg Tab) 650 mg PO Q4H PRN PRN Reason: Pain or Fever Stop: 01/02/25 17:14 Last Admin: 12/11/24 05:16 Dose: 650 mg Hydrocodone Bitart/Acetaminophen (Hydrocodone/Acetamophen 5/325mg Tab) 1 tab PO Q6H PRN PRN Reason: Pain Stop: 12/24/24 19:26 Last Admin: 12/11/24 11:50 Dose: 1 tab Aspirin (Aspirin 81 Mg Ectab) [facility] [place] Stop: 01/09/25 13:44 Last Admin: 12/11/24 08:45 Dose: 81 mg Atorvastatin Calcium (Atorvastatin 40 Mg Tab) [facility] [place] Stop: 01/03/25 08:59 Last Admin: 12/11/24 08:44 Dose: 40 mg Baclofen (Baclofen 20 Mg Tab) 20 mg PO BID [facility] Stop: 01/08/25 20:59 Last Admin: 12/10/24 08:28 Dose: 20 mg Bupropion HCl (Bupropion Xl 150 Mg Tabcr) 450 mg PO QAM [facility] Stop: 01/03/25 08:59 Last Admin: 12/11/24 08:42 Dose: 450 mg Buspirone HCl (Buspirone 5 Mg Tab) 10 mg PO BID [facility] Stop: 01/02/25 20:59 Last Admin: 12/11/24 08:43 Dose: 10 mg Cetirizine HCl (Cetirizine Hcl 10 Mg Tablet) 10 mg PO DAILY [facility] Stop: 01/06/25 08:59 Last Admin: 12/11/24 08:44 Dose: 10 mg Clonazepam (Clonazepam 0.5 Mg Tab) 0.5 mg PO BID PRN PRN Reason: Anxiety Stop: 01/02/25 18:50 Last Admin: 12/10/24 21:10 Dose: 0.5 mg Cyanocobalamin (Cyanocobalamin (B-12) 500 Mcg Tablet) 1,000 mcg PO QAM [facility] Stop: 01/10/25 08:59 Last Admin: 12/11/24 09:53 Dose: 1,000 mcg Dextrose (Dextrose 50% 50 Ml Syringe) 25 - 50 ml IV UD PRN; Protocol PRN Reason: Hypoglycemia Protocol Stop: 01/02/25 17:10 Duloxetine HCl (Duloxetine Hcl 60 Mg Cap) 60 mg PO QAM [facility] Stop: 01/09/25 13:44 Last Admin: 12/11/24 08:45 Dose: 60 mg Duloxetine HCl (Duloxetine Hcl 30 Mg Cap) 30 mg PO QAM [facility] Stop: 01/09/25 13:44 Last Admin: 12/11/24 08:45 Dose: 30 mg Enoxaparin Sodium (Enoxaparin Inj 40 Mg/0.4 Ml Syr) 40 mg SQ QAM [facility] Stop: 01/10/25 08:59 Last Admin: 12/11/24 08:45 Dose: 40 mg Glucagon (Glucagon For Inj 1 Mg Vial) 1 mg SQ UD PRN; Protocol PRN Reason: Hypoglycemia Protocol Stop: 01/02/25 17:10 Glucose (Glucose 40% Gel 15 Gm Tube) 15 - 30 gm PO UD PRN; Protocol PRN Reason: Hypoglycemia Protocol Stop: 01/02/25 17:10 Glucose (Glucose 10 Tab/Tube) 4 - 8 tab PO UD PRN; Protocol PRN Reason: Hypoglycemia Protocol Stop: 01/02/25 17:10 Amphotericin B 50 mg/ Sterile (Water) 1,010 mls @ 42.083 mls/hr IR .Q24H [facility] Stop: 12/13/24 12:29 Last Admin: 12/11/24 12:54 Dose: 42.1 mls/hr Piperacillin Sod/Tazobactam Sod (Zosyn) 4.5 gm in 100 mls @ 25 mls/hr IV Q8H [facility]; Protocol Stop: 12/18/24 07:59 Last Admin: 12/11/24 15:43 Dose: 25 mls/hr Vancomycin HCl 750 mg/ Sodium (Chloride) 265 mls @ 200 mls/hr IV Q12H [facility] Stop: 12/18/24 07:59 Last Infusion: 12/11/24 10:40 Dose: Infused Insulin Aspart (Insulin Aspart Per Unit Charge) 0 units SC ACHS [facility] Stop: 01/02/25 17:29 Last Admin: 12/11/24 12:53 Dose: 19 units Insulin Glargine (Lantus Per Unit Charge) 0 units SC HS [facility]; Protocol Stop: 01/04/25 20:59 Last Admin: 12/10/24 21:11 Dose: 30 units Insulin Glargine (Lantus Per Unit Charge) 30 units SC DAILY [facility] Stop: 01/06/25 08:59 Last Admin: 12/11/24 08:38 Dose: 30 units Lactobacillus Acidophilus (Advanced Probiotic 625 Mg Capsule) 1,250 mg PO DAILY [facility] Stop: 01/03/25 08:59 Last Admin: 12/11/24 08:42 Dose: 1,250 mg Melatonin (Melatonin 3 Mg Tab) 3 mg PO HSZ PRN; Protocol PRN Reason: Sleep Stop: 01/03/25 10:33 Last Admin: 12/10/24 21:10 Dose: 3 mg Metoprolol Succinate (Metoprolol Succ 50mg Ext Rel Tab) 50 mg PO BID [facility] Stop: 01/02/25 20:59 Last Admin: 12/11/24 08:44 Dose: 50 mg Midodrine (Midodrine Hcl 2.5 Mg Tab) 2.5 mg PO BID17 [facility] Stop: 01/06/25 16:59 Last Admin: 12/11/24 08:44 Dose: 2.5 mg Miscellaneous (Carbohydrates For Hypoglycemia ) 15 - 30 gm PO UD PRN PRN Reason: Hypoglycemia Protocol Stop: 01/02/25 17:10 Miscellaneous (Remove Nicoderm Patch) 1 each N/A DAILY@0859 [facility] Stop: 01/03/25 08:58 Last Admin: 12/11/24 08:39 Dose: 1 each Miscellaneous Information (Vancomycin Consult Active) 1 each N/A UD PRN PRN Reason: Consult Stop: 01/02/25 17:04 Miscellaneous Information (Pharmacy Glycemic Mgmt Consult) 1 each N/A UD PRN PRN Reason: Consult Stop: 01/02/25 17:10 Montelukast Sodium (Montelukast Sodium 10 Mg Tablet) 10 mg PO QAM [facility] Stop: 01/03/25 08:59 Last Admin: 12/11/24 08:42 Dose: 10 mg Nicotine (Nicotine 14 Mg/24 Hr Patch) 1 patch TD DAILY [facility] Stop: 01/03/25 08:59 Last Admin: 12/11/24 08:40 Dose: 1 patch Ondansetron HCl (Ondansetron Inj 2 Mg/Ml 2 Ml Vial) 4 mg IV Q6H PRN PRN Reason: Nausea Stop: 01/02/25 17:14 Oxybutynin Chloride (Oxybutynin Chloride Xl 5 Mg Tabcr) 10 mg PO QAM [facility] Stop: 01/03/25 08:59 Last Admin: 12/11/24 08:44 Dose: 10 mg Pantoprazole Sodium (Pantoprazole 40 Mg Tab) 40 mg PO QAM [facility] Stop: 01/03/25 08:59 Last Admin: 12/11/24 08:43 Dose: 40 mg Polyethylene Glycol (Polyethylene (Miralax) 17 Gm Pack) 17 gm PO DAILY [facility] Stop: 01/03/25 08:59 Last Admin: 12/11/24 08:44 Dose: Not Given Senna/Docusate Sodium (Docusate Sodium/Senna 50/8.6mg Tab) 1 tab PO QAM [facility] Stop: 01/03/25 08:59 Last Admin: 12/11/24 08:47 Dose: Not Given Tetracaine HCl (Tetracaine Hcl 0.5% (Ophth) 60 Drops/4 Ml Btl) 4 drops OP Q6H PRN PRN Reason: OTALGIA Stop: 01/05/25 09:58 Last Admin: 12/07/24 22:04 Dose: 4 drops Thiamine HCl (Thiamine Hcl 100 Mg Tab) 100 mg PO QAM [facility] Stop: 01/03/25 08:59 Last Admin: 12/11/24 08:44 Dose: 100 mg Vitamin D (Cholecalciferol 25 Mcg (1000 Units) Tab) 25 mcg PO QDL [facility] Stop: 01/03/25 11:29 Last Admin: 12/11/24 10:19 Dose: 25 mcg
[2024-12-11] MEDS: GADOBUTROL 65ML VIAL IV ONE (14:20)
--- NOTE | 2024-12-11 15:14 | Magnetic Resonance Report ---
MR brain wo/w con HISTORY: 49 years-old Male right occipital headaches subacute headache COMPARISON: Brain MRI 01/17/2010, head CT 03/13/2024 TECHNIQUE: Multiplanar multisequence MRI of the brain was obtained with and without IV contrast FINDINGS: No restricted diffusion to suggest acute or subacute infarct. Midline structures appear unremarkable. Degenerative changes of the cervical spine. No acute intracranial hemorrhage, midline shift, abnorma l extra-axial collection, hydrocephalus or intra-axial mass. Involutional changes with mild T2/FLAIR hyperintense foci throughout the white matter. Study is mildly motion degraded. No abnormal enhanceme nt. Focus of blooming artifact within the right thalamus suggestive of chronic hemosiderin, new from the 2009 comparison. Cerebral venous sinuses and major arterial flow voids appear patent. Skull, orbits and soft tissues a re unremarkable. Mastoid air cells are clear. Mild mucosal thickening of the left axillary sinus. IMPRESSION: 1. No acute intracranial abnormality. No acute or subacute infarct. 2. Involutional changes with suggestion of mild chronic microvascular ischemic disease. 3. No abnormal enhancement. ACT 112: Negative or not required by law. The above report was generated using voice recognition software. It may contain grammatical, syntax o r spelling errors. Electronically signed by: Franklin Polanco M.D. 12/11/2024 3:13 PM
[2024-12-11] MEDS: CARBOHYDRATES FOR HYPOGLYCEMIA PO PRN (16:46)
[2024-12-12] MEDS: INSULIN ASPART PER UNIT CHARGE SC ONE (02:55)
[2024-12-12 05:57] LABS: Iron 27.0 mcg/dl (35-175); Total Iron Binding Cap Calc 298.0 mcg/dl (250-450); Transferrin 213.0 mg/dl (200-360); Transferrin (FE) Percent Satur 9.0 % (20-50)
[2024-12-12 06:18] LABS: Ferritin 28.3 ng/ml (8-388)
[2024-12-12] MEDS: FOLIC ACID 1 MG TAB PO SCH (08:30)
--- NOTE | 2024-12-12 10:30 | Pharmacy Report ---
Pharmacy PK ABX Note - Date of Service December 12, 2024 - Assessment and Plan Assessment 12/12: Vanco level obtained this morning was 13.8 mcg/mL which extrapolates to an AUC below the target range. The maintenance dose has been increased to 1000mg iv q 12 hours * 12/09 right leg wound OR culture grew MRSA, ID recommended continuing vancomycin for MRSA coverage and changed Zosyn to cefazolin for Kleb pneumo as seen in the RLE wound culture from 12/04. * To complete total of 14 days of antibiotics after OR (through 12/22) 12/07: Vancomycin level today was 15.7mcg/mL which extrapolates to an AUC/JIGAR in the target range. Continue vancomycin without change * Right leg culture from 12/04 grew K. pneumoniae and MRSA (vanco JIGAR = 1); Preliminary blood cultures from 12/03 are no growth; Repeat urine culture grew > 100,000 Cheyanne glabrata * Patient has been afebrile and has had fairly stable renal function, but continues to have leukocytosis. 12/05: Reviewed vancomycin level, predicting therapeutic AUC/JIGAR, continue current regimen. Urine culture with 3+ organisms, repeat drawn yesterday evening. Blood cultures NG x24 hours. WBC still elevated, patient afebrile. Renal function stable. 12/04: 49 year old M receiving vancomycin and zosyn for treatment of possible SSTI. Patient sustained an injury a few weeks ago resulting in an ulcer of right lower leg. Pertinent microbiologic data includes: Positive MRSA Nasal Swab, blood cultures pending. Day # 5 of antimicrobial therapy. Plan Vancomycin * Vancomycin level today was 13.8mcg/mL which extrapolates to an AUC24 of 378mg/L.hr * Increase maintenance dose to: 1000 mg IV every 12 hours * Regimen is predicted to achieve target AUC/JIGAR of 400-600 mg/L.hr * Another level will be ordered in the next few days or an clinically necessary. Pharmacy will continue to follow and will adjust dose/frequency as necessary. Thank you. Pharmacy has transitioned to AUC monitoring for vancomycin. AUC/JIGAR is the preferred PK/PD target and is associated with decreased risk of nephrotoxicity compared to traditional trough targets.
[2024-12-12] MEDS: IRON SUCROSE 300 MG in SODIUM CHLORIDE 0.9% 250 ML IV ONE (11:13)
--- NOTE | 2024-12-12 13:23 | Pharmacy Report ---
Pharmacy Glycemic Short Note 2 - Date of Service December 12, 2024 - Glycemic Short BSG Results (Last 24 hours): 12/11/24 12/11/24 12/11/24 16:42 16:44 16:46 POC Glucose 65 L* 102 H 71 12/11/24 12/11/24 12/11/24 17:00 17:01 17:30 POC Glucose 68 L* 64 L* 99 12/11/24 12/12/24 12/12/24 20:02 02:50 07:51 POC Glucose 76 96 114 H 12/12/24 11:57 POC Glucose 231 H OUTPATIENT ANTIDIABETIC REGIMEN: * Trulicity 1.5 mg weekly * Jardiance 10 mg PO daily * Metformin 1G BID * A1C: 12.2% ASSESSMENT: 12/12: * Shashi received a total of 153 units of insulin on 12/10, but only 98 units of insulin on 12/11 ( 50 units were basal and 48 units were bolus). Despite the large decrease in insulin he still had many BSGs that were below the goal range. CF was loosened last evening. * Fasting BSG was 114mg/dL. AM Lantus dose was reduced by 50% to prevent further hypoglycemia. Will continue HS Lantus scale. * He continues on cefazolin and vancomycin. 12/10: * Insulin needs continue to increase. Shashi received a total of 100 units on 12/08 and 145 units on 12/09. * Shashi went to OR on 12/09 for R leg I&D with wound vac placement. Dexamethasone IV was likely given for procedure and could be cause of sustained hyperglycemia on 12/09. Novolog parameters were tightened to assist with steroid induced hyperglycemia. BSG now trending down and has been >24h since administration of steroid, therefore will back off short acting insulin. Novolog CF/CR of 24/10 was not enough previously, therefore will trial CF/CR 19/09. * Continue to titrate Lantus dose for fasting BSG hyperglycemia. 12/07: * Shashi received a total of 95units of insulin yesterday (40 units were basal and 55 units were bolus). BSGs were still all above goal yesterday. * Fasting BSG was 191mg/dL this morning. Increased AM Lantus to 30 units, though he was only given 25 units this morning, so increased the doses of the Lantus scale for HS (now 0,15, or 20 units depending on BSG). * Carb ratio was also tightened this morning. 12/05: * Shashi received 75 units of insulin yesterday (24 were basal) * Fasting BSG this AM above goal range, appears to be requiring significantly more insulin than in previous admissions. Unclear reasoning, infection? * NovoLog tightened to a weight based stress of 3. He continues on vancomycin and Zosyn. Lunchtime BSG elevated, one time IV regular insulin bolus given to help bring BSGs down. 12/04: * Patient admitted with a diabetic ulcer of right lower leg sustained after a fall a few weeks ago currently on vanco and zosyn. * Patient BSGs elevated on arrival but fasting today improved to 140mg/dL after 20 units of Lantus administered yesterday at dinner time. * Will use moderate stress weight based dosing in conjunction with previous data for initial dosing recommendations. * Patient is ordered and tolerating a diet. PLAN FOR INPATIENT GLYCEMIC CONTROL: * Hold outpatient oral diabetes medications * Basal insulin * Lantus 15 units SQ QAM * Lantus 0-20-30 units SQ HS (see eMAR for scale) * Bolus insulin * NovoLog per scale ACHS or Q6hrs while NPO * Goal Range: Low 110 mg/dL - High 140 mg/dL * Correction Factor: 25 mg/dL/unit * Nutritional / Prandial insulin per carb ratio of 1 unit per 4 grams CHO consumed
[2024-12-12] MEDS: LANTUS PER UNIT CHARGE SC SCH (13:28)
[2024-12-12] MEDS: VANCOMYCIN HCL 1,000 MG/270 ML BAG IV SCH (16:26)
--- NOTE | 2024-12-12 18:07 | Hospitalist Progress Note ---
Date of Service December 12, 2024 Assessment & Plan (1) Diabetic ulcer of right lower leg: (2) Acute on chronic urinary retention: (3) Acute hypernatremia: (4) Leukocytosis: (5) Type 2 diabetes mellitus with diabetic neuropathy, unspecified: (6) Catheter-associated urinary tract infection: (7) Candidal UTI (urinary tract infection): (8) Lethargy: (9) Chronic headaches: (10) Iron deficiency anemia: (11) Folate deficiency: Plan 49-year-old insulin dependent diabetic with right lower extremity diabetic leg infection after traumatic injury 2 weeks prior to admission. #Diabetic ulcer of right lower leg - -culture early in the admission with klebsiella & MRSA -had continued with low-grade fevers last week despite broad-spectrum IV abx therapy of zosyn/vanco -exposed tendon present in the RLE wound bed -fortunately MRI did not show osteomyelitis or abscess formation -s/p ortho consult this admission -due to persistence of low-grade fevers and the appearance of the wound, I reached out to Dr Lepe from ortho on 12/08 -after review Dr Lepe recommended debridement of the ulcer/wound and placement of a wound vac -this surgical intervention occurred 12/09/24 w/o incident -deep wound culture obtained during the debridement; this has grown MRSA again -appreciate wound care assistance; appreciate ortho assistance by Dr Lepe -will need ongoing wound care and wound vac management by Wound care team and Wound clinic -wound vac was removed today, but not placed back due to bleeding -Emma Martinez to re-eval the wound tomorrow on 12/13 to see if vac can be placed back on -appreciate ID consultation; they recommended: -stop zosyn, change to IV ancef -for MRSA - cont vanco -at time of discharge change to doxycycline + augmentin and continue both thru 12/22/24 #fungal UTI - complicated/catheter related - -urine cx with charles glabrata, sensitivities pending (sent to [facility]) -I do not believe he has upper tract infection -s/p amphotericin bladder wash x ~5 days as fluconazole does not typically treat c glabrata -stopped the bladder wash today #chronic diastolic heart failure - -compensated -most recent echo with EF 50-55% -cont meto succ 50mg BID #Hx CAD s/p stent - Continue DAPT/statin #HTN, but with known orthostatic hypotension - -cont midodrine 2.5mg BID (of note - dose reduced from 5mg BID to 2.5mg BID as supine BP readings were very high, sometimes >200) -orthostasis 2nd to diabetic autonomic neuropathy? -cont meto succ 50 BID -uncertain why he is not on REJI or ARB given his DM #uncontrolled T2DM - -current A1C >12% -appreciate pharmacy glycemic team assistance -cont basal-bolus insulin #Hx anxiety/mood disorder - -Continue buspirone/bupropion -resumed cymbalta 90mg/day (follows with psych; I confirmed w/ him that this is indeed his dose) #neurogenic bladder - -follows with [facility] -at home - [facility] qid -here - pierce in place -he wants pierce upon discharge home -discussed risks/benefits of [facility] vs indwelling pierce -will get rid of 3-way pierce and place standard pierce today #diabetic neuropathy - -pt does not want to take gabapentin thus stopped #dyspnea - -o2 sats wnl and lung exam wnl -cxr obtained - no infiltrates or edema -anxiety? -if it persists, however, consider CTA chest #headaches - -obtained MRI brain w/ and w/o contrast - no stroke, no tumor, no acute ICH seen -MRI did show blooming artifact with hemosiderin in the right thalamus - this may be from old micro-bleed -did mention this to patient -discussed how to reduce the risk of stroke (control DM, HTN, lipids, etc) -are headaches (which are occipital in location) due to cervical spine disease?? #iron deficiency - -venofer 300mg x 1 today -consider 2nd dose on 12/13 #folic acid deficiency - -start folate 1mg daily x 30 days #DVT proph - -lovenox daily PT/OT va appreciated pt's mother updated by phone over weekend dispo - [facility] pending insurance auth Admission and Anticipated Discharge Date Admission Date: December 03, 2024 Subjective tele overnight wnl Emma from wound care came & removed wound vac this am to inspect the RLE wound there was a decent amount of bleeding thus the wound vac was left OFF she plans to re-inspect the wound tomorrow no new issues or complaints tolerated the IV venover still agreeable to [facility] reports his 3-way pierce is leaking he is anxious, stating "I'm worried I'm gonna lose my leg" (because of the ulcer) Review of Systems Review of Systems: gen - feels cold, but his room was <65 degrees; no fevers cv - no chest pain pulm - no dyspnea Physical Exam Physical Exam: gen - lying in bed, NAD, awake/alert, looks similar to previous visits mouth - MMM, no thrush neck - no JVD heart - RRR, s1 s2, no murmur lungs - CTA b/l abd - soft NT ND BS+ vascular - b/l foot pulses 2+ with normal perfusion ext - no peripheral edema skin - distal RLE ulcer with dressings in place ; mild pallor Results & Data Results & Data Vital Signs (Past 12 Hours) Vital Signs Temp Pulse Resp BP BP Pulse Ox O2 Del Method 12/12/24 14:50 36.7 C 84 19 160/91 H 96 Room Air 12/12/24 11:49 36.7 C 85 20 180/113 H 97 Room Air 12/12/24 08:12 85 172/105 H 12/12/24 07:25 36.7 C 85 17 180/113 H 97 Room Air Laboratory Results Laboratory Results - last 24 hr 12/12/24 12/12/24 04:54 07:51 POC Glucose 114 H Iron 27 L TIBC 298 Transferrin 213 Transferrin % Sat 9 L Ferritin 28.3 Folate 4.90 L Random Vancomycin 13.8 PG Care Time/CCT Total # of Minutes Spent Total Time Spent with Patient: Total time spent is greater than 50% in coordination of care (as documented) at patient's floor/unit and/or counseling patient: Coding Level of Care Code 75386 SUB INP/OBS CARE 3/50MIN Diagnoses Diabetic ulcer of right lower leg E11.622; L97.919 Acute on chronic urinary retention R33.9 Acute hypernatremia E87.0 Leukocytosis D72.829 Type 2 diabetes mellitus with diabetic neuropathy, unspecified E11.40 Catheter-associated urinary tract infection T83.511A; N39.0 Candidal UTI (urinary tract infection) B37.49 Lethargy R53.83 Chronic headaches R51.9; G89.29 Iron deficiency anemia D50.9 Folate deficiency E53.8
[2024-12-13 05:50] LABS: Hematocrit (blood only) 28.7 % (42.0-52.0); Hemoglobin 8.7 g/dl (14.0-18.0); Mean Corpuscular Hemoglobin 24.9 pg (25.0-34.0); Mean Corpuscular Volume 82.0 fL (80.0-100.0); Platelet Count 489 K/uL (130-400); RDW Standard Deviation 48.6 fL (36.4-46.3); Red Blood Count 3.50 M/uL (4.70-6.10); White Blood Count 13.99 K/ul (4.8-10.8)
[2024-12-13 06:10] LABS: Anion Gap 5.0 (3-11); Blood Urea Nitrogen 25.0 mg/dl (6-23); Calcium 8.2 mg/dl (8.6-10.3); Carbon Dioxide 26.0 mmol/L (21-32); Chloride 107.0 mmol/L (98-107); Creatinine Clr Calc Pharmacy 92.7 ml/min; Glucose 184.0 mg/dl (70-99(Fasting)); Potassium 3.9 mmol/L (3.5-5.1); Sodium 138.0 mmol/L (136-145)
[2024-12-13] MEDS: LANTUS PER UNIT CHARGE SC SCH (09:02)
--- NOTE | 2024-12-13 12:25 | Hospitalist Progress Note ---
Date of Service December 13, 2024 Assessment & Plan (1) Diabetic ulcer of right lower leg: (2) Acute on chronic urinary retention: (3) Acute hypernatremia: (4) Type 2 diabetes mellitus with diabetic neuropathy, unspecified: (5) Candidal UTI (urinary tract infection): Plan 49-year-old insulin dependent diabetic with right lower extremity diabetic leg infection after traumatic injury 2 weeks prior to admission. #Diabetic ulcer of right lower leg - -culture early in the admission with klebsiella & MRSA -had continued with low-grade fevers last week despite broad-spectrum IV abx therapy of zosyn/vanco -exposed tendon present in the RLE wound bed -fortunately MRI did not show osteomyelitis or abscess formation -ortho consult this admission -12/09 underwent debridement of the ulcer/wound by Dr. Lepe and placement of a wound vac -this surgical intervention occurred 12/09/24 w/o incident. operative wound culture grew MRSA -vac off yesterday due to bleeding, resolved and vac replaced today discussed with [facility] -will need ongoing wound care and wound vac management by Wound care team and Wound clinic -appreciate ID consultation; they recommended: -continue vancomycin and cefazolin -at time of discharge change to doxycycline + augmentin and continue both thru 12/22/24 #fungal CAUTI - complicated/catheter related #neurogenic bladder - -urine cx with charles glabrata, sensitivities pending (sent to [facility]) -I do not believe he has upper tract infection -completed amphotericin bladder wash x ~5 days -anticipate returning to [facility] when home #chronic diastolic heart failure - -compensated -most recent echo with EF 50-55% -cont meto succ 50mg BID #Hx CAD s/p stent - Continue DAPT/statin #HTN, but with known orthostatic hypotension - probably diabetic autonomic neuropathy -cont midodrine 2.5mg BID (of note - dose reduced from 5mg BID to 2.5mg BID as supine BP readings were very high, sometimes >200) -cont meto succ 50 BID -uncertain why he is not on REJI or ARB given his DM #uncontrolled T2DM - -current A1C >12% -appreciate pharmacy glycemic team assistance -hypoglycemic yesterday but BG at goal last 24h on current basal-bolus insulin #Hx anxiety/mood disorder - -Continue buspirone/bupropion -resumed cymbalta 90mg/day (follows with psych; confirmed dose) #diabetic neuropathy - -pt does not want to take gabapentin thus stopped #dyspnea - -o2 sats wnl and lung exam wnl -cxr obtained - no infiltrates or edema -anxiety? -if it persists, however, consider CTA chest #headaches - -obtained MRI brain w/ and w/o contrast - no stroke, no tumor, no acute ICH seen -MRI did show blooming artifact with hemosiderin in the right thalamus - this may be from old micro-bleed -did mention this to patient -discussed how to reduce the risk of stroke (control DM, HTN, lipids, etc) -are headaches (which are occipital in location) due to cervical spine disease? -no c/o headache today #iron deficiency - -venofer 300mg x 1 #folic acid deficiency - -start folate 1mg daily x 30 days #DVT proph - -lovenox daily I completed [id number] call with his insurance today and they denied auth for acute rehab Anticipate he may return home, discussed with day care center director Admission and Anticipated Discharge Date Admission Date: December 03, 2024 Subjective R leg neuropathy may be better since he could feel the vac change RLE painful with ambulation No dyspnea or chest pain Physical Exam 2 Physical Exam: Last 24h vitals reviewed GEN: no acute distress, sitting in chair HEENT: pupils equal, sclerae anicteric, moist MM RESP: normal WOB, CTAB CV: reg no mrg ABD: soft/nt/nd +BT : pierce with yellow urine SKIN: warm and dry, no generalized rashes LE wwp without edema wound vac on RLE calf wound NEURO: AOx person, place, and situation. Face symmetric, speech normal, moves 4 ext spontaneously and equally Results & Data Results & Data Vital Signs (Past 12 Hours) Vital Signs Temp Pulse Pulse Resp BP BP Pulse Ox 12/13/24 11:20 36.8 C 88 17 159/92 H 98 12/13/24 07:25 36.9 C 90 20 168/99 H 96 12/13/24 07:15 90 12/13/24 02:48 36.8 C 91 H 18 162/94 H 96 O2 Del Method 12/13/24 11:20 Room Air 12/13/24 07:25 Room Air 12/13/24 07:15 12/13/24 02:48 Room Air Laboratory Results 12/13/24 05:13 12/13/24 05:13 PG Care Time/CCT Total # of Minutes Spent Total Time Spent with Patient: Total time spent is greater than 50% in coordination of care (as documented) at patient's floor/unit and/or counseling patient: Coding Level of Care Code 64959 SUB INP/OBS CARE 2/35MIN Diagnoses Diabetic ulcer of right lower leg E11.622; L97.919 Acute on chronic urinary retention R33.9 Acute hypernatremia E87.0 Type 2 diabetes mellitus with diabetic neuropathy, unspecified E11.40 Candidal UTI (urinary tract infection) B37.49
[2024-12-13] MEDS: Nursing to Pharmacy Communication SCH (12:42)
[2024-12-14] MEDS: VANCOMYCIN LEVEL ONE (05:47)
[2024-12-14] MEDS: METOPROLOL SUCC 25MG EXT REL TAB PO SCH (09:09)
--- NOTE | 2024-12-14 14:03 | Pharmacy Report ---
Pharmacy PK ABX Note - Date of Service December 14, 2024 - Assessment and Plan Assessment 12/14: * Plan is ultimately to transition to PO antibiotics through 12/22/24 to complete therapy * Cefazolin dosed appropriately at 2 g IV q8h 12/12: * 12/09 right leg wound OR culture grew MRSA, ID recommended continuing vancomycin for MRSA coverage and changed Zosyn to cefazolin for Kleb pneumo as seen in the RLE wound culture from 12/04. 12/07: Vancomycin level today was 15.7mcg/mL which extrapolates to an AUC/JIGAR in the target range. Continue vancomycin without change * Right leg culture from 12/04 grew K. pneumoniae and MRSA (vanco JIGAR = 1); Preliminary blood cultures from 12/03 are no growth; Repeat urine culture grew > 100,000 Cheyanne glabrata * Patient has been afebrile and has had fairly stable renal function, but continues to have leukocytosis. 12/05: Reviewed vancomycin level, predicting therapeutic AUC/JIGAR, continue current regimen. Urine culture with 3+ organisms, repeat drawn yesterday evening. Blood cultures NG x24 hours. WBC still elevated, patient afebrile. Renal function s table. 12/04: 49 year old M receiving vancomycin and zosyn for treatment of possible SSTI. Patient sustained an injury a few weeks ago resulting in an ulcer of right lower leg. Pertinent microbiologic data includes: Positive MRSA Nasal Swab, blood cultures pending. Plan Vancomycin * Current regimen: 1000 mg IV every 12 hours * Trough level obtained 12/14/24 resulted as 17.4 mcg/mL. This is predicted to achieve target AUC/JIGAR of 400-600 mg/L.hr * Predicted AUC at steady state: 542 mg/L.hr * Continue 1000 mg IV every 12 hours * Repeat trough level ordered for: 12/15/24 prior to weekend Pharmacy will continue to follow and will adjust dose/frequency as necessary. Thank you. Pharmacy has transitioned to AUC monitoring for vancomycin. AUC/JIGAR is the preferred PK/PD target and is associated with decreased risk of nephrotoxicity compared to traditional trough targets.
[2024-12-14] MEDS: busPIRone 15 MG TAB PO SCH (17:38)
[2024-12-14] MEDS: CLOPIDOGREL BISULFATE 75 MG TAB PO SCH (17:39)
--- NOTE | 2024-12-14 18:50 | Hospitalist Progress Note ---
Date of Service December 14, 2024 Assessment & Plan (1) Diabetic ulcer of right lower leg: (2) Acute on chronic urinary retention: (3) Acute hypernatremia: (4) Type 2 diabetes mellitus with diabetic neuropathy, unspecified: (5) Candidal UTI (urinary tract infection): Plan 49-year-old insulin dependent diabetic with right lower extremity diabetic leg infection after traumatic injury 2 weeks prior to admission. #Diabetic ulcer of right lower leg - -culture early in the admission with klebsiella & MRSA -had continued with low-grade fevers last week despite broad-spectrum IV abx therapy of zosyn/vanco -exposed tendon present in the RLE wound bed -fortunately MRI did not show osteomyelitis or abscess formation -ortho consult this admission -12/09 underwent debridement of the ulcer/wound by Dr. Lepe and placement of a wound vac. operative wound culture grew MRSA -vac change tomorrow -establishing with [facility] for PT/OT and wound/vac care -appreciate ID consultation; they recommended: -continue vancomycin and cefazolin -at time of discharge change to doxycycline + augmentin and continue both thru 12/22/24 -discharge has been delayed, consider changing to oral tomorrow, AM CBC to check on leukocytosis #fungal CAUTI - complicated/catheter related #neurogenic bladder - -urine cx with charles glabrata, sensitivities pending (sent to [facility]) -ID [employer] consultant thought this was probably colonization rather than UTI -completed amphotericin bladder wash x ~5 days -anticipate returning to [facility] when home, still has pierce #chronic diastolic heart failure - -compensated -most recent echo with EF 50-55% -cont metoprolol #Hx CAD s/p stent - Continue DAPT/statin -has been followed by [facility] cardiology #HTN, but with known orthostatic hypotension - probably diabetic autonomic neuropathy -cont midodrine 2.5mg BID (of note - dose reduced from 5mg BID to 2.5mg BID as supine BP readings were very high, sometimes >200) -decreased metoprolol to 25 mg bid to see whether orthostasis improved -add lisinopril if more BP control needed #uncontrolled T2DM with neuropathy- -current A1C >12% -appreciate pharmacy glycemic team assistance -cont basal-bolus insulin -BG at goal past 24h -empagliflozin problematic with candiduria, held in hospital. metformin, Trulicity held #Hx anxiety/mood disorder - -Continue buspirone/bupropion -resumed cymbalta 90mg/day (follows with psych; confirmed dose) #headaches - -obtained MRI brain w/ and w/o contrast - no stroke, no tumor, no acute ICH seen -MRI did show blooming artifact with hemosiderin in the right thalamus - this may be from old micro-bleed -did mention this to patient -discussed how to reduce the risk of stroke (control DM, HTN, lipids, etc) -are headaches (which are occipital in location) due to cervical spine disease? -no c/o headache past 24h #iron deficiency - -venofer 300mg x 1 #folic acid deficiency - -start folate 1mg daily x 30 days #DVT proph - -lovenox daily discussed with care coord - planned for home with [facility], needs vac change tomorrow then needs outpatient vac changes scheduled prior to discharge Admission and Anticipated Discharge Date Admission Date: December 03, 2024 Subjective doing ok today. right leg still painful unchanged. no further bleeding no shortness of breath talked about going back to [facility] on discharge Physical Exam Physical Exam: Last 24h vitals reviewed GEN: no acute distress, lying in bed HEENT: pupils equal, sclerae anicteric, moist MM RESP: normal WOB, CTAB CV: reg no mrg ABD: soft/nt/nd +BT : pierce with yellow urine SKIN: warm and dry, no generalized rashes LE wwp without edema wound vac on RLE calf wound NEURO: AOx person, place, and situation. Face symmetric, speech normal, moves 4 ext spontaneously and equally Results & Data Results & Data Vital Signs (Past 12 Hours) Vital Signs Temp Pulse Pulse Resp BP BP Pulse Ox 12/14/24 17:34 93 H 18 180/110 H 98 12/14/24 16:58 36.8 C 95 H 18 171/110 H 100 12/14/24 16:13 36.9 C 93 H 18 176/104 H 99 12/14/24 07:18 36.8 C 87 18 168/109 H 97 O2 Del Method 12/14/24 17:34 Room Air 12/14/24 16:58 Room Air 12/14/24 16:13 Room Air 12/14/24 07:18 Room Air PG Care Time/CCT Total # of Minutes Spent Total Time Spent with Patient: Total time spent is greater than 50% in coordination of care (as documented) at patient's floor/unit and/or counseling patient: Coding Level of Care Code 65430 SUB INP/OBS CARE 2/35MIN Diagnoses Diabetic ulcer of right lower leg E11.622; L97.919 Acute on chronic urinary retention R33.9 Acute hypernatremia E87.0 Type 2 diabetes mellitus with diabetic neuropathy, unspecified E11.40 Candidal UTI (urinary tract infection) B37.49
[2024-12-14] MEDS: LANTUS PER UNIT CHARGE SC SCH (21:13)
[2024-12-15 04:51] LABS: Hematocrit (blood only) 27.4 % (42.0-52.0); Hemoglobin 8.7 g/dl (14.0-18.0); Mean Corpuscular Hemoglobin 26.0 pg (25.0-34.0); Mean Corpuscular Volume 81.8 fL (80.0-100.0); Platelet Count 482 K/uL (130-400); RDW Standard Deviation 49.4 fL (36.4-46.3); Red Blood Count 3.35 M/uL (4.70-6.10); White Blood Count 13.80 K/ul (4.8-10.8)
[2024-12-15] MEDS: VANCOMYCIN LEVEL ONE (05:05)
[2024-12-15 05:08] LABS: Anion Gap 5.0 (3-11); Blood Urea Nitrogen 30.0 mg/dl (6-23); Calcium 8.2 mg/dl (8.6-10.3); Carbon Dioxide 26.0 mmol/L (21-32); Chloride 108.0 mmol/L (98-107); Creatinine Clr Calc Pharmacy 87.7 ml/min; Glucose 228.0 mg/dl (70-99(Fasting)); Potassium 3.9 mmol/L (3.5-5.1); Sodium 139.0 mmol/L (136-145)
[2024-12-15] MEDS: DOXYCYCLINE HYCLATE 100 MG CAP PO SCH (09:13)
[2024-12-15] MEDS: METOPROLOL SUCC 50MG EXT REL TAB PO SCH (09:13)
[2024-12-15] MEDS: LANTUS PER UNIT CHARGE SC SCH (09:21)
--- NOTE | 2024-12-15 10:27 | Pharmacy Report ---
Pharmacy Glycemic Short Note 2 - Date of Service December 15, 2024 - Glycemic Short BSG Results (Last 24 hours): 12/14/24 12/14/24 12/14/24 11:58 16:16 18:07 Glucose POC Glucose 142 H 93 99 12/14/24 12/15/24 12/15/24 20:16 04:31 07:35 Glucose 228 H POC Glucose 164 H 244 H OUTPATIENT ANTIDIABETIC REGIMEN: * Trulicity 1.5 mg weekly * Jardiance 10 mg PO daily * Metformin 1G BID HbA1c: 12.2% (12/04/24) ASSESSMENT: 12/15/24: * Blood sugars well-controlled over past 48 hours w/ fasting blood sugar elevation noted this morning * Do not anticipate changes to Novolog today, but will increase basal today * IV antibiotics changed to PO 12/12: * Shashi received a total of 153 units of insulin on 12/10, but only 98 units of insulin on 12/11 ( 50 units were basal and 48 units were bolus). Despite the large decrease in insulin he still had many BSGs that were below the goal range. CF was loosened last evening. * Fasting BSG was 114mg/dL. AM Lantus dose was reduced by 50% to prevent further hypoglycemia. Will continue HS Lantus scale. * He continues on cefazolin and vancomycin. 12/10: * Insulin needs continue to increase. Shashi received a total of 100 units on 12/08 and 145 units on 12/09. * Shashi went to OR on 12/09 for R leg I&D with wound vac placement. Dexamethasone IV was likely given for procedure and could be cause of sustained hyperglycemia on 12/09. Novolog parameters were tightened to assist with steroid induced hyperglycemia. BSG now trending down and has been >24h since administration of steroid, therefore will back off short acting insulin. Novolog CF/CR of 24/10 was not enough previously, therefore will trial CF/CR 19/09. * Continue to titrate Lantus dose for fasting BSG hyperglycemia. 12/07: * Shashi received a total of 95units of insulin yesterday (40 units were basal and 55 units were bolus). BSGs were still all above goal yesterday. * Fasting BSG was 191mg/dL this morning. Increased AM Lantus to 30 units, though he was only given 25 units this morning, so increased the doses of the Lantus scale for HS (now 0,15, or 20 units depending on BSG). * Carb ratio was also tightened this morning. 12/05: * Shashi received 75 units of insulin yesterday (24 were basal) * Fasting BSG this AM above goal range, appears to be requiring significantly more insulin than in previous admissions. Unclear reasoning, infection? * NovoLog tightened to a weight based stress of 3. He continues on vancomycin and Zosyn. Lunchtime BSG elevated, one time IV regular insulin bolus given to help bring BSGs down. 12/04: * Patient admitted with a diabetic ulcer of right lower leg sustained after a fall a few weeks ago currently on vanco and zosyn. * Patient BSGs elevated on arrival but fasting today improved to 140mg/dL after 20 units of Lantus administered yesterday at dinner time. * Will use moderate stress weight based dosing in conjunction with previous data for initial dosing recommendations. * Patient is ordered and tolerating a diet. PLAN FOR INPATIENT GLYCEMIC CONTROL: * Hold outpatient oral diabetes medications * Basal insulin * Lantus 25 units SC BID * Bolus insulin * NovoLog per scale ACHS or Q6hrs while NPO * Goal Range: Low 110 mg/dL - High 140 mg/dL * Correction Factor: 25 mg/dL/unit * Nutritional / Prandial insulin per carb ratio of 1 unit per 4 grams CHO consumed
--- NOTE | 2024-12-15 16:23 | Hospitalist Progress Note ---
Date of Service December 15, 2024 Assessment & Plan (1) Diabetic ulcer of right lower leg: (2) Acute on chronic urinary retention: (3) Acute hypernatremia: (4) Type 2 diabetes mellitus with diabetic neuropathy, unspecified: (5) Candidal UTI (urinary tract infection): Plan 49-year-old insulin dependent diabetic with right lower extremity diabetic leg infection after traumatic injury 2 weeks prior to admission. #Diabetic ulcer of right lower leg - -culture early in the admission with klebsiella & MRSA -broad-spectrum IV abx therapy of zosyn/vanco -exposed tendon present in the RLE wound bed -fortunately MRI did not show osteomyelitis or abscess formation -ortho consulted -12/09 underwent debridement of the ulcer/wound by Dr. Lepe and placement of a wound vac. operative wound culture grew MRSA -vac change today -establishing with [facility] for PT/OT and wound/vac care. signed vac Rx -ID consultation recommended: -mainly treated with vancomycin and cefazolin -changed to oral doxycycline + augmentin 12/15 and continue both thru 12/22/24 -CBC with persistent leukocytosis, appears he may have some chronic elevation the lowest in our records is WBC 12. He has had a thrombocytosis since a year ago -ordered blood smear #fungal CAUTI - complicated/catheter related #neurogenic bladder - -urine cx with charles glabrata, sensitivities pending (sent to [facility]) -ID business process consultant thought this was probably colonization rather than UTI -completed amphotericin bladder wash x ~5 days -anticipate returning to [facility] when home, still has pierce #chronic diastolic heart failure - -compensated -most recent echo with EF 50-55% -cont metoprolol #Hx CAD s/p stent - Continue DAPT/statin -has been followed by [facility] cardiology #HTN, but with known orthostatic hypotension - probably diabetic autonomic neuropathy -cont midodrine 2.5mg BID (of note - dose reduced from 5mg BID to 2.5mg BID as supine BP readings were very high, sometimes >200) -tried reduction of metoprolol but was persistently tachycardic and more hypertensive -continue metoprolol succ 50 mg bid -hydralazine 10 mg IV given today for uncontrolled hypertension 220/120 #uncontrolled T2DM with neuropathy- -current A1C >12% -appreciate pharmacy glycemic team assistance -cont basal-bolus insulin -reviewed BG, at goal -empagliflozin problematic with candiduria, held in hospital. metformin, Trulicity held #Hx anxiety/mood disorder - -Continue buspirone/bupropion -resumed cymbalta 90mg/day (follows with psych; confirmed dose) #headaches - -obtained MRI brain w/ and w/o contrast - no stroke, no tumor, no acute ICH seen -MRI did show blooming artifact with hemosiderin in the right thalamus - this may be from old micro-bleed -did mention this to patient -discussed how to reduce the risk of stroke (control DM, HTN, lipids, etc) -are headaches (which are occipital in location) due to cervical spine disease? -no c/o headache several days #iron deficiency - -venofer 300mg x 1 #folic acid deficiency - -folate 1mg daily #DVT proph - -lovenox daily discussed with care coord - planned for home with [facility], needs vac change tomorrow then needs outpatient vac changes scheduled prior to discharge Admission and Anticipated Discharge Date Admission Date: December 03, 2024 Subjective Doing well today, not really lightheaded when up, walked farther today R calf pain when walking Physical Exam 2 Physical Exam: Last 24h vitals reviewed GEN: sitting up in chair HEENT: pupils equal, sclerae anicteric, moist MM RESP: normal WOB CV: ABD: ND : pierce with yellow urine SKIN: warm and dry, no generalized rashes LE wwp without edema wound vac on RLE calf wound - edges are clean and no erythema NEURO: AOx person, place, and situation. Face symmetric, speech normal, moves 4 ext spontaneously and equally. Results & Data Results & Data Vital Signs (Past 12 Hours) Vital Signs Temp Pulse Resp BP BP Pulse Ox O2 Del Method 12/15/24 16:07 105 H 180/118 H 12/15/24 15:09 36.9 C 105 H 18 205/121 H 98 Room Air 12/15/24 09:45 Room Air 12/15/24 07:10 36.8 C 96 H 18 167/99 H 94 Room Air Laboratory Results 12/15/24 04:31 12/15/24 04:31 PG Care Time/CCT Total # of Minutes Spent Total Time Spent with Patient: Total time spent is greater than 50% in coordination of care (as documented) at patient's floor/unit and/or counseling patient: Coding Level of Care Code 46518 SUB INP/OBS CARE MIN Diagnoses Diabetic ulcer of right lower leg E11.622; L97.919 Acute on chronic urinary retention R33.9 Acute hypernatremia E87.0 Type 2 diabetes mellitus with diabetic neuropathy, unspecified E11.40 Candidal UTI (urinary tract infection) B37.49
[2024-12-15] MEDS: AMOXICILLIN/CLAVULANATE 875 MG TAB PO SCH (17:05)
[2024-12-16 07:19] LABS: Creatinine Clr Calc Pharmacy 100.2 ml/min
--- NOTE | 2024-12-16 15:09 | Hospitalist Progress Note ---
Date of Service December 16, 2024 Assessment & Plan (1) Diabetic ulcer of right lower leg: (2) Acute on chronic urinary retention: (3) Acute hypernatremia: (4) Type 2 diabetes mellitus with diabetic neuropathy, unspecified: (5) Candidal UTI (urinary tract infection): Plan 49-year-old insulin dependent diabetic with right lower extremity diabetic leg infection after traumatic injury 2 weeks prior to admission. #Diabetic ulcer of right lower leg - -culture early in the admission with klebsiella & MRSA -broad-spectrum IV abx therapy of zosyn/vanco -exposed tendon present in the RLE wound bed -fortunately MRI did not show osteomyelitis or abscess formation -ortho consulted -12/09 underwent debridement of the ulcer/wound by Dr. Lepe and placement of a wound vac. operative wound culture grew MRSA -vac change today -establishing with [facility] for PT/OT and wound/vac care. signed vac Rx -ID consultation recommended: -mainly treated with vancomycin and cefazolin -changed to oral doxycycline + augmentin 12/15 and continue both thru 12/22/24 -Cr stable at 0.9 #Leukocytosis, thrombocytosis -CBC with persistent leukocytosis, appears he may have some chronic elevation the lowest in our records is WBC 12. -He has had a thrombocytosis since a year ago, prior to the spleen lac this winter -Has had CTs of chest abdomen and pelvis since fall 2023 with nothing to account for this -ordered blood smear, repeat CBC -may be from chronic inflammation but I can't find a specific cause. outpatient heme referral is reasonable #fungal CAUTI - complicated/catheter related #neurogenic bladder - -urine cx with charles glabrata, sensitivities pending (sent to [facility]) -ID sap security consultant thought this was probably colonization rather than UTI -completed amphotericin bladder wash x ~5 days -anticipate returning to [facility] when home, still has pierce #chronic diastolic heart failure - -compensated -most recent echo with EF 50-55% -cont metoprolol #Hx CAD s/p stent - Continue DAPT/statin -has been followed by [facility] cardiology #HTN, but with known orthostatic hypotension - probably diabetic autonomic neuropathy -cont midodrine 2.5mg BID (of note - dose reduced from 5mg BID to 2.5mg BID as supine BP readings were very high, sometimes >200) -tried reduction of metoprolol but was persistently tachycardic and more hypertensive -continue metoprolol succ 50 mg bid -supine and overnight BP better with this dose #uncontrolled T2DM with neuropathy- -current A1C >12% -appreciate pharmacy glycemic team assistance -cont basal-bolus insulin -reviewed BG, at goal -empagliflozin problematic with candiduria, held in hospital. metformin, Trulicity held #Hx anxiety/mood disorder - -Continue buspirone/bupropion -resumed cymbalta 90mg/day (follows with psych; confirmed dose) #headaches - -obtained MRI brain w/ and w/o contrast - no stroke, no tumor, no acute ICH seen -MRI did show blooming artifact with hemosiderin in the right thalamus - this may be from old micro-bleed -did mention this to patient -discussed how to reduce the risk of stroke (control DM, HTN, lipids, etc) -are headaches (which are occipital in location) due to cervical spine disease? -no c/o headache several days #iron deficiency - -venofer 300mg x 1 #folic acid deficiency - -folate 1mg daily #DVT proph - -lovenox daily Staying until vac change Wednesday then home with HH, first visit , reviewed notes from care coord Admission and Anticipated Discharge Date Admission Date: December 03, 2024 Subjective Staying until vac change Wednesday then home with HH, first visit Feeling fine. Says his diet at home is pretty strict. Does have a CGM R calf soreness with ambulation unchanged, manageable Physical Exam Physical Exam: Last 24h vitals reviewed GEN: lying in bed on TV and appears comfortable HEENT: pupils equal, sclerae anicteric, moist MM RESP: normal WOB CV: ABD: ND : pierce with yellow urine SKIN: warm and dry, no generalized rashes LE wwp without edema wound vac on RLE calf wound - edges are clean and no erythema - unchanged today NEURO: AOx person, place, and situation. Face symmetric, speech normal, moves 4 ext spontaneously and equally. Results & Data Results & Data Vital Signs (Past 12 Hours) Vital Signs Temp Pulse Resp BP Pulse Ox O2 Del Method 12/16/24 14:12 36.9 C 87 18 155/91 H 99 Room Air 12/16/24 07:54 36.7 C 89 18 161/96 H 97 Room Air 07/12/25 05:55 154/98 H PG Care Time/CCT Total # of Minutes Spent Total Time Spent with Patient: Total time spent is greater than 50% in coordination of care (as documented) at patient's floor/unit and/or counseling patient: Coding Level of Care Code 91137 SUB INP/OBS CARE 2/35MIN Diagnoses Diabetic ulcer of right lower leg E11.622; L97.919 Acute on chronic urinary retention R33.9 Acute hypernatremia E87.0 Type 2 diabetes mellitus with diabetic neuropathy, unspecified E11.40 Candidal UTI (urinary tract infection) B37.49
[2024-12-17] MEDS: METOPROLOL TARTRATE 1 MG/ML VIAL IV STA (03:32)
[2024-12-17] MEDS: ONDANSETRON INJ 2 MG/ML 2 ML VIAL IV PRN (04:27)
[2024-12-17] MEDS: IBUPROFEN 600 MG TAB PO STA (04:56)
[2024-12-17 07:05] LABS: Hematocrit (blood only) 30.9 % (42.0-52.0); Hemoglobin 9.5 g/dl (14.0-18.0); Immature Granulocytes # (auto) 0.29 K/uL (0.01-0.20); Immature Granulocytes % (auto) 1.5 %; Mean Corpuscular Hemoglobin 25.6 pg (25.0-34.0); Mean Corpuscular Volume 83.3 fL (80.0-100.0); Platelet Count 516 K/uL (130-400); RDW Standard Deviation 52.2 fL (36.4-46.3); Red Blood Count 3.71 M/uL (4.70-6.10); White Blood Count 19.56 K/ul (4.8-10.8)
[2024-12-17 07:52] LABS: Polychromasia 1+
--- NOTE | 2024-12-17 09:37 | CT Scan Report ---
EXAM: CT Head Without Intravenous Contrast INDICATION: Severe headache. Hypertension. TECHNIQUE: Axial computed tomography images of the head/brain without intravenous contrast. Sagittal and/or coronal reformats are provided. Sagittal and coronal reformatted images were created and reviewed. This CT exam was performed using one or more of the following dose reduction techniques: automated exposure control, adjustment of the mA and/or kV according to patient size, and/or use of iterative reconstruction technique. COMPARISON: 07/05/2024 FINDINGS: Limitations: None. Brain and extra-axial spaces: There is age appropriate cortical atrophy and chronic ischemic periventricular white matter hypodensity. No acute infarct, hemorrhage or mass noted. Bones/joints: No acute changes. Soft tissues: No significant abnormality noted. Vasculature: No acute abnormality noted. Sinuses: No layering fluid in the visualized portions of the paranasal sinuses. Mastoid air cells: No mastoid effusion. Orbits: No significant abnormality noted. IMPRESSION: Cerebral atrophy. No acute changes. ACT 112: N/A Electronically signed by Mary Hubbard 12-17-2024 09:36 AM
--- NOTE | 2024-12-17 15:03 | Hospitalist Progress Note ---
Date of Service December 17, 2024 Assessment & Plan (1) Diabetic ulcer of right lower leg: (2) Acute on chronic urinary retention: (3) Acute hypernatremia: (4) Type 2 diabetes mellitus with diabetic neuropathy, unspecified: (5) Candidal UTI (urinary tract infection): Plan 49-year-old insulin dependent diabetic with right lower extremity diabetic leg infection after traumatic injury 2 weeks prior to admission. Hypertensive urgency this AM combined with severe headache. R occipital region, which is his typical headache and probably not a hypertensive headache. HTN harder to control last 2-3 days. No orthostatic sx last day or two -STAT head CT with no acute changes - no evidence of ICH. No focal neurological symptoms -restarted baclofen which was held a week ago - can cause withdrawal syndrome -added lisinopril -BP improved and headache resolved by afternoon -discussed with bedside RN #uncontrolled HTN, but with known orthostatic hypotension - probably diabetic autonomic neuropathy -hold midodrine -tried reduction of metoprolol but was persistently tachycardic and more hypertensive -continue metoprolol succ 50 mg bid -added lisinopril 5 mg qAM -check cortisol. TSH normal this winter #Diabetic ulcer of right lower leg - -culture early in the admission with klebsiella & MRSA -broad-spectrum IV abx therapy of zosyn/vanco -exposed tendon present in the RLE wound bed -fortunately MRI did not show osteomyelitis or abscess formation -ortho consulted -12/09 underwent debridement of the ulcer/wound by Dr. Lepe and placement of a wound vac. operative wound culture grew MRSA -vac change Wednesday -establishing with [facility] for PT/OT and wound/vac care. signed vac Rx -ID consultation recommended: -mainly treated with vancomycin and cefazolin -changed to oral doxycycline + augmentin 12/15 and continue both thru 12/22/24 #Leukocytosis, thrombocytosis -CBC with persistent leukocytosis, appears he may have some chronic elevation the lowest in our records is WBC 12. -He has had a thrombocytosis since a year ago, prior to the spleen lac this winter -Has had CTs of chest abdomen and pelvis since fall 2023 with nothing to account for this -ordered blood smear -pending -WBC up to 19 today but Hg also up so is hemoconcentrated -may be from chronic inflammation but I can't find a specific cause. outpatient heme referral is reasonable #fungal CAUTI - complicated/catheter related #neurogenic bladder - -urine cx with charles glabrata, sensitivities pending (sent to [facility]) -ID energy sales consultant thought this was probably colonization rather than UTI -completed amphotericin bladder wash x ~5 days -anticipate returning to [facility] when home, still has pierce #chronic diastolic heart failure - -compensated -most recent echo with EF 50-55% -cont metoprolol #Hx CAD s/p stent - Continue DAPT/statin -has been followed by [facility] cardiology #uncontrolled T2DM with neuropathy- -current A1C >12% -appreciate pharmacy glycemic team assistance -cont basal-bolus insulin -reviewed BG, at goal -empagliflozin problematic with candiduria, held in hospital. metformin, Trulicity held #Hx anxiety/mood disorder - -Continue buspirone/bupropion -resumed cymbalta 90mg/day (follows with psych; confirmed dose) #headaches - -obtained MRI brain w/ and w/o contrast - no stroke, no tumor, no acute ICH seen -MRI did show blooming artifact with hemosiderin in the right thalamus - this may be from old micro-bleed -did mention this to patient -discussed how to reduce the risk of stroke (control DM, HTN, lipids, etc) -might be migraine or occipital neuralgia - always same place right occiput and sharp, severe, episodic. Sometimes has visual symptoms but not clearcut for migraine aura #iron deficiency - -venofer 300mg x 1 #folic acid deficiency - -folate 1mg daily #DVT proph - -lovenox daily Staying until vac change Wednesday then home with HH, first visit , reviewed notes from care coord Admission and Anticipated Discharge Date Admission Date: December 03, 2024 Subjective severe R occipital headache this am (stereotypical for him) combined with severe hypertension by early afternoon headache resolved, bp improved R calf soreness is the same Physical Exam 2 Physical Exam: Last 24h vitals reviewed GEN: resting in bed HEENT: pupils equal, sclerae anicteric, moist MM RESP: normal WOB CV: ABD: ND : pierce with yellow urine SKIN: warm and dry, no generalized rashes LE wwp without edema wound vac on RLE calf wound - edges are clean and no erythema - unchanged today NEURO: AOx person, place, and situation. Face symmetric, speech normal, moves 4 ext spontaneously and equally. Results & Data Results & Data Vital Signs (Past 12 Hours) Vital Signs Temp Pulse Resp BP BP Pulse Ox O2 Del Method 12/17/24 09:45 97 H 18 153/89 H 93 Room Air 12/17/24 08:05 103 H 18 170/109 H 92 Room Air 12/17/24 07:03 36.4 C L 103 H 16 165/102 H 93 Room Air 12/17/24 05:54 174/114 H 93 Room Air 12/17/24 04:59 100 H 165/111 H 12/17/24 04:36 36.7 C 101 H 170/100 H 93 Room Air 12/17/24 02:57 174/108 H Laboratory Results 12/17/24 06:28 12/16/24 06:31 PG Care Time/CCT Total # of Minutes Spent Total Time Spent with Patient: Total time spent is greater than 50% in coordination of care (as documented) at patient's floor/unit and/or counseling patient: Coding Level of Care Code 55543 SUB INP/OBS CARE 3/50MIN Diagnoses Diabetic ulcer of right lower leg E11.622; L97.919 Acute on chronic urinary retention R33.9 Acute hypernatremia E87.0 Type 2 diabetes mellitus with diabetic neuropathy, unspecified E11.40 Candidal UTI (urinary tract infection) B37.49
[2024-12-17] MEDS: INSULIN ASPART PER UNIT CHARGE SC SCH (16:34)
--- NOTE | 2024-12-18 01:20 | Communication Note ---
Date of Service: December 18, 2024 Advised by overnight nurse that pt was complaining of ongoing headache that started initially a few weeks ago. Nurse states pt groans in pain until they get into the room, then is more calm and cooperative. Went to bedside, although of note he was groaning continuously until I entered the room. He is cooperative and pleasant. He states he is having ongoing R ear pain. He notes pain behind his R ear for the last few weeks. He had previously gotten an ear drop tetracaine which helped. Mastoid is not exquisitely tender to palpation but he notes some discomfort, no swelling of the mastoid noted. Pt states pain comes and goes. L TM was wnl, moderate wax noted. R TM not visualized fully due to wax but pt notes discomfort with pulling of the ear and jumps in pain at initial insertion of otoscope into the ear and canal does appear erythematous. Ordered ciprodex drops for otitis externa. With wax burden, may benefit from ear rinse to better visualize the TM. He is afebrile. If ciprodex helps, would continue as BID for 7 -14 days based on clinical improvement. Did review CT head and day note from 12/17. Resident Activity Tracking Resident Involvement: Resident Care Provided Care Provided: Adult Hospital Medicine
[2024-12-18] MEDS: CIPRO 0.3%/DEXAMETHASONE 0.1% OTIC SUSP 7.5ML OTR SCH (01:42)
[2024-12-18] MEDS: INSULIN ASPART PER UNIT CHARGE SC SCH (08:58)
[2024-12-18] MEDS: LANTUS PER UNIT CHARGE SC SCH ×2 (09:05→21:00)
--- NOTE | 2024-12-18 14:03 | Pharmacy Report ---
Pharmacy Glycemic Short Note 2 - Date of Service December 18, 2024 - Glycemic Short BSG Results (Last 24 hours): 12/17/24 12/17/24 12/17/24 15:47 16:05 16:07 POC Glucose 64 L* 53 L* 54 L* 12/17/24 12/17/24 12/18/24 16:30 20:12 07:38 POC Glucose 79 124 H 161 H 12/18/24 11:35 POC Glucose 117 H OUTPATIENT ANTIDIABETIC REGIMEN: * Trulicity 1.5 mg weekly * Jardiance 10 mg PO daily * Metformin 1G BID HbA1c: 12.2% (12/04/24) ASSESSMENT: 12/18/24: * Patient received total of 67 units of insulin yesterday, of which 50 units were basal insulin * Fasting BSG 161 mg/dL - patient having low BSG last 2 days at dinner time. Regimen heavily basal weighted, will scale back on Lantus today and also loosen novolog at lunch 12/15/24: * Blood sugars well-controlled over past 48 hours w/ fasting blood sugar elevation noted this morning * Do not anticipate changes to Novolog today, but will increase basal today * IV antibiotics changed to PO 12/12: * Shashi received a total of 153 units of insulin on 12/10, but only 98 units of insulin on 12/11 ( 50 units were basal and 48 units were bolus). Despite the large decrease in insulin he still had many BSGs that were below the goal r willow. CF was loosened last evening. * Fasting BSG was 114mg/dL. AM Lantus dose was reduced by 50% to prevent further hypoglycemia. Will continue HS Lantus scale. * He continues on cefazolin and vancomycin. 12/10: * Insulin needs continue to increase. Shashi received a total of 100 units on 12/08 and 145 units on 12/09. * Shashi went to OR on 12/09 for R leg I&D with wound vac placement. Dexamethasone IV was likely given for procedure and could be cause of sustained hyperglycemia on 12/09. Novolog parameters were tightened to assist with steroid induced hyperglycemia. BSG now trending down and has been >24h since administration of steroid, therefore will back off short acting insulin. Novolog CF/CR of 24/10 was not enough previously, therefore will trial CF/CR 19/09. * Continue to titrate Lantus dose for fasting BSG hyperglycemia. 12/07: * Shashi received a total of 95units of insulin yesterday (40 units were basal and 55 units were bolus). BSGs were still all above goal yesterday. * Fasting BSG was 191mg/dL this morning. Increased AM Lantus to 30 units, though he was only given 25 units this morning, so increased the doses of the Lantus scale for HS (now 0,15, or 20 units depending on BSG). * Carb ratio was also tightened this morning. 12/05: * Shashi received 75 units of insulin yesterday (24 were basal) * Fasting BSG this AM above goal range, appears to be requiring significantly more insulin than in previous admissions. Unclear reasoning, infection? * NovoLog tightened to a weight based stress of 3. He continues on vancomycin and Zosyn. Lunchtime BSG elevated, one time IV regular insulin bolus given to help bring BSGs down. 12/04: * Patient admitted with a diabetic ulcer of right lower leg sustained after a fall a few weeks ago currently on vanco and zosyn. * Patient BSGs elevated on arrival but fasting today improved to 140mg/dL after 20 units of Lantus administered yesterday at dinner time. * Will use moderate stress weight based dosing in conjunction with previous data for initial dosing recommendations. * Patient is ordered and tolerating a diet. PLAN FOR INPATIENT GLYCEMIC CONTROL: * Hold outpatient oral diabetes medications * Basal insulin * Lantus 20 units this AM * Lantus 15-20 units HS * Bolus insulin * NovoLog per scale ACHS or Q6hrs while NPO * Goal Range: Low 110 mg/dL - High 140 mg/dL * Correction Factor: 25 mg/dL/unit * Nutritional / Prandial insulin per carb ratio of 1 unit per 4 grams CHO consumed (CF 35/ CR 10 with lunch and rest of day *)
--- NOTE | 2024-12-18 14:52 | Hospitalist Progress Note ---
Date of Service December 18, 2024 Assessment & Plan (1) Diabetic ulcer of right lower leg: (2) Acute on chronic urinary retention: (3) Acute hypernatremia: (4) Type 2 diabetes mellitus with diabetic neuropathy, unspecified: (5) Candidal UTI (urinary tract infection): Plan 49-year-old insulin dependent diabetic with right lower extremity diabetic leg infection after traumatic injury 2 weeks prior to admission. Hypertensive urgency this AM combined with severe headache. R occipital region, which is his typical headache and probably not a hypertensive headache. HTN harder to control last 2-3 days. No orthostatic sx last day or two -STAT head CT with no acute changes - no evidence of ICH. No focal neurological symptoms -restarted baclofen which was held a week ago - can cause withdrawal syndrome -added lisinopril -BP improved and headache resolved by afternoon -discussed with bedside RN #uncontrolled HTN, but with known orthostatic hypotension - probably diabetic autonomic neuropathy Episiode of hypertensive urgency AM of 12/17. Had headache but was typical of his usual headache - the headache pain was severe and probably driving BP up, not the other way around. Head CT without ICH -hold midodrine -tried reduction of metoprolol but was persistently tachycardic and more hypertensive -continue metoprolol succ 50 mg bid -added lisinopril 5 mg qAM - BPs improved on this. assess whether becomes orthostatic -AM cortisol was 14. TSH normal this winter #headaches - poor historian but has chronic occipital headaches #otitis externa #postauricular pain -obtained MRI brain w/ and w/o contrast - no stroke, no tumor, no acute ICH seen -MRI did show blooming artifact with hemosiderin in the right thalamus - this may be from old micro-bleed -did mention this to patient -discussed how to reduce the risk of stroke (control DM, HTN, lipids, etc) -might be migraine or occipital neuralgia - always same place right occiput and sharp, severe, episodic. Sometimes has visual symptoms but not clearcut for sami elham aura -treating otitis externa with ciprodex started 12/18 -I reviewed CT head films/report from yesterday and MRI films/report from last week and there is no mastoiditis, nothing else obvious. Perhaps MSK pain #Diabetic ulcer of right lower leg - -culture early in the admission with klebsiella & MRSA -exposed tendon present in the RLE wound bed -fortunately MRI did not show osteomyelitis or abscess formation -ortho consulted -12/09 underwent debridement of the ulcer/wound by Dr. Lepe and placement of a wound vac. operative wound culture grew MRSA -vac change done today - awaiting auth for wound vac -establishing with [facility] for PT/OT and wound/vac care -ID consultation recommended: -mainly treated with vancomycin and cefazolin -changed to oral doxycycline + augmentin 12/15 and continue both thru 12/22/24 #Leukocytosis, thrombocytosis -CBC with persistent leukocytosis, appears he may have some chronic elevation the lowest in our records is WBC 12. -He has had a thrombocytosis since a year ago, prior to the spleen lac this winter -Has had CTs of chest abdomen and pelvis since fall 2023 with nothing to account for this -ordered blood smear -pending -WBC up to 19 today but Hg also up so is hemoconcentrated -may be from chronic inflammation but I can't find a specific cause. outpatient heme referral is reasonable #fungal CAUTI - complicated/catheter related #neurogenic bladder - -urine cx with charles glabrata, sensitivities pending (sent to [facility]) -ID performance consultant thought this was probably colonization rather than UTI -completed amphotericin bladder wash x ~5 days -anticipate returning to [facility] when home, still has pierce -DC empagliflozin #chronic diastolic heart failure - -compensated -most recent echo with EF 50-55% -cont metoprolol #Hx CAD s/p stent - Continue DAPT/statin -has been followed by [facility] cardiology #uncontrolled T2DM with neuropathy- -current A1C >12% -appreciate pharmacy glycemic team assistance, discussed with DM educator 12/18 -cont basal-bolus insulin -hypoglycemic recently, glargine doses reduced -outpatient BG was running apx 250 before he developed current wound and infection -on discharge plan to stop empagliflozin (charles UTI), continue trulicity and metformin, add daily glargine (10 units>). Has CGM already #Hx anxiety/mood disorder - -Continue buspirone/bupropion -resumed cymbalta 90mg/day (follows with psych; confirmed dose) #iron deficiency - -venofer 300mg x 1 #folic acid deficiency - -folate 1mg daily #DVT proph - -lovenox daily awaiting auth for vac, home with HH, first visit , reviewed notes from care coord Admission and Anticipated Discharge Date Admission Date: December 03, 2024 Subjective Has been having R periauricular pain. He thinks this triggers the headaches radiating to occiput otoscopic exam c/w otitis and ciprodex gg started - no change yet Physical Exam Physical Exam: Last 24h vitals reviewed GEN: resting in bed HEENT: pupils equal, sclerae anicteric, moist MM tender in postauricular area, near insertion of SCM on mastoid process that also is a little tender moving the pinna doesn't cause pain RESP: normal WOB CV: ABD: ND : pierce with yellow urine SKIN: warm and dry, no generalized rashes LE wwp without edema wound vac on RLE calf wound - reviewed photo today - no surrounding erythema, seems to be filling in NEURO: AOx person, place, and situation. Face symmetric, speech normal, moves 4 ext spontaneously and equally. Results & Data Results & Data Vital Signs (Past 12 Hours) Vital Signs Temp Pulse Resp BP BP Pulse Ox O2 Del Method 12/18/24 12:27 37.2 C 98 H 20 162/96 H 97 Room Air 12/18/24 10:12 98 H 16 169/99 H 95 Room Air 12/18/24 08:08 37.1 C 99 H 17 175/114 H 95 Room Air PG Care Time/CCT Total # of Minutes Spent Total Time Spent with Patient: Total time spent is greater than 50% in coordination of care (as documented) at patient's floor/unit and/or counseling patient: Coding Level of Care Code 17635 SUB INP/OBS CARE 2/35MIN Diagnoses Diabetic ulcer of right lower leg E11.622; L97.919 Acute on chronic urinary retention R33.9 Acute hypernatremia E87.0 Type 2 diabetes mellitus with diabetic neuropathy, unspecified E11.40 Candidal UTI (urinary tract infection) B37.49
[2024-12-19 08:01] VITALS: RESP 16; TEMP 98.1; O2SAT 95
[2024-12-19] MEDS: LANTUS PER UNIT CHARGE SC SCH (08:43)
[2024-12-19 11:33] VITALS: BP 168/107; PULSE 88
[2024-12-19] MEDS: BUTALBITAL/ACETAMIN/CAFFEINE TAB PO STA (12:09)
--- NOTE | 2024-12-19 13:39 | Discharge Summary ---
Discharge Summary Date of Service December 19, 2024 Principal Dx & Hospital Course #1 = Principal Diagnosis (1) Diabetic ulcer of right lower leg: (2) Acute on chronic urinary retention: (3) Acute hypernatremia: (4) Type 2 diabetes mellitus with diabetic neuropathy, unspecified: (5) Candidal UTI (urinary tract infection): Plan 49 years old male with PMH of FULL CODE @ parents' home, overweight with BMI 26.5 (height 182.9 cm; weight 88.5 kg), GERD on protonix 40mg PO qam, ongoing tobacco abuse with subsequent development of COPD, not on home O2 or homme steroids, just on sinulair 10mg PO qam, chronic migraine headaches on Excedrin Migraine @ parents' home, chronic muscle spasms on baclofen 20mg PO bid, major depression on duloxetine 90mg PO qam, anxiety disorder on clonazepam 0.5mg PO bid prn anxiety, insomnia disorder on ramelteon 8mg PO qhs prn insomnia, CAD, s/p stent, on ASA 81mg PO qam, plavix 75mg PO qam, and atorvastatin 40mg PO qam, labile HTN on metoprolol 50mg PO bid, orthostatic hypotension on midodrine 5mg PO tid, chronic systolic CHF with low-normal LVEF 50-55% and chronic diastolic CHF with grade I LV diastolic dysfunction (as noted on 03/14/2024, 3:43pm TTE, CARDS Dr. Juan Carlos Velazquez) on metoprolol 50mg PO bid, diabetic neuropathy on gabapentin 300mg PO tid, qhn-yw-zijefhu, fzd-julemya-osfehjaex DM2 with HbA1c 12.2% (12/04/2024, 5:28am) on metformin 1000mg PO bid, empagliflozin 10mg PO qam, and dulaglutide 1.5mg SQ weekly, s/p traumatic injury to right postero-lateral calf ~2 weeks prior to admission date 12/03/2024. Patient was subsequently admitted to the inpatient hospitalist service @ [facility] on 12/03/2024, 5:15pm, with the following diagnosis: 1. Acute non-healing diabetic, right postero-lateral calf wound ulcer, yielding MRSA+ and non-ESBL, augmentin-sensitive Klebsiella pneumoniae (as noted on 12/04/2024, 11:50am right postero-lateral wound culture). 2. Septic shock with admission BP 87/54, HR 101, RR 20, O2 sat 98% on room air, and 36.6 degrees Celsius (12/03/2024, 3:33pm), admitting WBC 15.02, N68 L17 M12 E1 B1 (12/03/2024, 3:47pm). The following medical issues were addressed while the patient remained in [facility] from admission date 12/03/2024 through discharge date 12/19/2024: 1. Acute non-healing diabetic, right postero-lateral calf wound ulcer, yielding MRSA+ and non-ESBL, augmentin-sensitive Klebsiella pneumoniae (as noted on 12/04/2024, 11:50am right postero-lateral wound culture), RESOLVING. Patient was started empirically on vancomycin 1.5g IV x 1 dose (12/03/2024, 5:01pm) and zosyn 4.5g IV x 1 dose (12/03/2024, 4:23pm) in [facility] ER. Patient subsequently received vancomycin 750mg IV q12 x 17 doses (12/04/2024, 1:20am through 12/12/2024, 12:01pm), vancomycin 50mg IV x 1 dose (12/09/2024, 9:44am), and zosyn 4.5g IV q8 x 24 doses (12/03/2024, 9:13pm through 12/11/2024, 5:01pm) in [facility] Med-Surg bed #N381-1. Patient subsequently received cefazolin 2g IV q8 x 11 doses (12/11/2024, 9:47pm through 12/15/2024, 5:05am), vancomycin 1g IV q12 x 6 doses (12/12/2024, 4:26pm through 12/15/2024, 6:37am). Patient subsequently received augmentin 875mg/125mg PO bid x 8 doses (12/15/2024, 5:05pm through 12/19/2024, 8:28am) and doxycycline 100mg PO bid x 9 doses (12/15/2024, 9:13am through 12/19/2024, 8:34am). Patient's acute non-healing diabetic, right postero-lateral calf wound ulcer, yielding MRSA+ and non-ESBL, augmentin-sensitive Klebsiella pneumoniae (as noted on 12/04/2024, 11:50am right postero-lateral wound culture), is healing on hospital discharge date 12/19/2024. Patient will continue with augmentin 875mg/125mg PO bid x 7 doses (12/19/2024, 6:00pm through 12/22/2024, 8:00am) and doxycycline 100mg PO bid x 7 doses (12/19/2024, 9:00pm through 12/22/2024, 8:00am) at his parents' home. To this end, patient's [facility] [id number], [address] [place] [address], received on 12/19/2024, two electronic prescriptions for: a. augmentin 875mg/125mg PO bid, #7 tablets, no refills. b. doxycycline 100mg PO bid, #7 tablets, no refills. Of note, patient underwent I & D of right postero-lateral calf wound with application of wound vac over right postero-lateral calf wound on 12/09/2024, 8:00am with [facility] Orthopedic Surgeon Dr. Artie Lepe. Patient will continue with wound vac on hospital discharge back to parents' home on 12/19/2024. Patient will follow up with [facility] within 5-7 days of hospital discharge. 2. Septic shock with admission BP 87/54, HR 101, RR 20, O2 sat 98% on room air, and 36.6 degrees Celsius (12/03/2024, 3:33pm), admitting WBC 15.02, N68 L17 M12 E1 B1 (12/03/2024, 3:47pm), RESOLVED. Patient received 3 liters of 0.9% NS @ 999 mL/hr (12/03/2024, 3:55pm, 4:47pm, 4:49pm) in [facility] ER. Patient subsequently received 1 liter of lactated Ringers @ 125 mL/hr (12/05/2024, 7:41pm) in [facility] Med-Surg bed #N381-1. Patient did not require or receive pressor(s) while in [facility] from admission date 12/03/2024 through discharge date 12/19/2024. Patient was subsequently discharged back to parents' home on 12/19/2024 with no need for IV fluid rehydration therapy. Instead, patient was encouraged to increase his oral intake of water to 8 ounces per hour while awake. Patient reports that he will comply with this recommendation. Additional secondary medical issues included: Hypertensive urgency on 12/18/2024, combined with severe headache. R occipital region, which is his typical headache and probably not a hypertensive headache. HTN harder to control last 2-3 days. No orthostatic sx last day or two -STAT head CT with no acute changes - no evidence of ICH. No focal neurological symptoms -restarted baclofen which was held a week ago - can cause withdrawal syndrome -added lisinopril -BP improved and headache resolved by afternoon -discussed with bedside RN #uncontrolled HTN, but with known orthostatic hypotension - probably diabetic autonomic neuropathy Episiode of hypertensive urgency AM of 12/17. Had headache but was typical of his usual headache - the headache pain was severe and probably driving BP up, not the other way around. Head CT without ICH -hold midodrine -tried reduction of metoprolol but was persistently tachycardic and more hypertensive -continue metoprolol succ 50 mg bid -added lisinopril 5 mg qAM - BPs improved on this. assess whether becomes orthostatic -AM cortisol was 14. TSH normal this winter #headaches - poor historian but has chronic occipital headaches #otitis externa #postauricular pain -obtained MRI brain w/ and w/o contrast - no stroke, no tumor, no acute ICH seen -MRI did show blooming artifact with hemosiderin in the right thalamus - this may be from old micro-bleed -did mention this to patient -discussed how to reduce the risk of stroke (control DM, HTN, lipids, etc) -might be migraine or occipital neuralgia - always same place right occiput and sharp, severe, episodic. Sometimes has visual symptoms but not clearcut for migraine aura -treating otitis externa with ciprodex started 12/18 -I reviewed CT head films/report from yesterday and MRI films/report from last week and there is no mastoiditis, nothing else obvious. Perhaps MSK pain #Diabetic ulcer of right lower leg - -culture early in the admission with klebsiella & MRSA -exposed tendon present in the RLE wound bed -fortunately MRI did not show osteomyelitis or abscess formation -ortho consulted -12/09 underwent debridement of the ulcer/wound by Dr. Lepe and placement of a wound vac. operative wound culture grew MRSA -vac change done today - awaiting auth for wound vac -establishing with [facility] for PT/OT and wound/vac care -ID consultation recommended: -mainly treated with vancomycin and cefazolin -changed to oral doxycycline + augmentin 12/15 and continue both thru 12/22/24 #Leukocytosis, thrombocytosis -CBC with persistent leukocytosis, appears he may have some chronic elevation the lowest in our records is WBC 12. -He has had a thrombocytosis since a year ago, prior to the spleen lac this winter -Has had CTs of chest abdomen and pelvis since fall 2023 with nothing to account for this -ordered blood smear -pending -WBC up to 19 today but Hg also up so is hemoconcentrated -may be from chronic inflammation but I can't find a specific cause. outpatient heme referral is reasonable #fungal CAUTI - complicated/catheter related #neurogenic bladder - -urine cx with charles glabrata, sensitivities pending (sent to [facility]) -ID seo consultant thought this was probably colonization rather than UTI -completed amphotericin bladder wash x ~5 days -anticipate returning to [facility] when home, still has pierce -DC empagliflozin #chronic diastolic heart failure - -compensated -most recent echo with EF 50-55% -cont metoprolol #Hx CAD s/p stent - Continue DAPT/statin -has been followed by [facility] cardiology #uncontrolled T2DM with neuropathy- -current A1C >12% -appreciate pharmacy glycemic team assistance, discussed with DM educator 12/18 -cont basal-bolus insulin -hypoglycemic recently, glargine doses reduced -outpatient BG was running apx 250 before he developed current wound and infection -on discharge plan to stop empagliflozin (charles UTI), continue trulicity and metformin, add daily glargine (10 units>). Has CGM already #Hx anxiety/mood disorder - -Continue buspirone/bupropion -resumed cymbalta 90mg/day (follows with psych; confirmed dose) #iron deficiency - -venofer 300mg x 1 #folic acid deficiency - -folate 1mg daily #DVT proph - -lovenox daily awaiting auth for vac, home with , first visit , reviewed notes from care coord Admission HPI Per Admitting Provider 49 yo male with type 2 diabetes is admitted for a laceration from a syncopal episode over 2 weeks ago. This lesion was not painful but has been bleeding since. Patient reports his mother has been caring for the wound. Patient does not recall exactly what injured his right calf. Patient si a type 2 diabetic who self caths Discharge Exam Constitutional General: Comfortable, cooperative, coherent. Patient speaks in complete, fluent, and articulate sentences without pause, interruption, cough, or wheeze. HEENT: Normocephalic, atraumatic. Pupils equally round and reactive to light. Extra-ocular muscles intact. No nystagmus, gaze paresis, anisocoria, miosis, mydriasis, hyphema, scleral injection, conjunctivitis, or pterygium. No rhinorrhea. No otorrhea. No pharyngeal erythema, edema, or discharge. Neck: Supple, no stridor, bruit, or hepato-jugular reflux. No lid lag. No exophthalmos/proptosis. Jugular venous pressure is estimated to be 3 cm above the sternal angle of Lupillo, which in turn, is 5 cm above the level of the right atrium; with jugular venous pressure estimated to be 8 cm, then, there is no jugular venous distention on 12/19/2024. Lymphatics: Negative for anterior/posterior cervical, supraclavicular, infraclavicular, axillary, epitrochlear, or inguinal adenopathy. Chest: Symmetric rise and fall with respirations. Non-tender to palpation. Lungs: Clear to auscultation and percussion. No audible expiratory wheeze, egophony, pectoriloquy, increase in tactile fremitus, or flatness/dullness to percussion at the bases. Heart: Regular rate. Regular rhythm. S1 and S2 noted. No S3 or S4 summation gallop. No tripartite friction rub. Grade III/ early systolic murmur @ LLSB without radiation to the carotids, axilla, or back, and which remains invariant in regards to the respiratory cycle. Abdomen: Soft, non-tender, non-distended. No rebound, guarding, Lanza's sign, or organomegaly. Bowel sounds auscultated in all 4 quadrants. Extremities: No clubbing, cyanosis, or edema in upper extremities or lower extremities bilaterally. 2+ pedal pulses bilaterally. Skin: No decubitus ulcer or enanthem. Chronic, non-healing diabetic wound on right postero-lateral calf with MRSA+ (as noted on 12/09/2024, 9:23am right postero-lateral leg wound culture)(as noted on 12/04/2024, 11:50 right postero-lateral leg wound culture, MRSA+ coninfected with augmentin- sensitive Klebsiella pneumoniae) with wound vac applied over wound. Genito-urinary: No urethral discharge. No pierce catheter. Neurology: Alert and oriented in regards to person, place, time, and situation. DTR+. 5/5 motor strength in all 4 extremities, both proximally and distally. No myoclonus, tremors, or tics. Psychiatry: No homicidal ideation. No suicidal ideation. No flat affect; smiles appropriately. Discharge Plan Discharge Items Patient Disposition: Home - Home Health Services Reason For Visit: INFECTED DIABETIC WOUND Discharge Diagnosis: 1. Infected right postero-lateral calf wound, MRSA+ (12/09/2024, 9:23am right postero-lateral calf wound culture) in the setting of insulin-dependent DM2. 2. Chronic urinary retention treated with clean intermittent catheterization at parents' home. Condition on Discharge: Fair Activity: Resume your previous activity Lifting: Gradually increase as tolerated Bathing: No limitations Sexual Activity: When tolerated Exercise/Sports: Gradually increase as tolerated and As tolerated Driving/Machine Use: No limitations Weightbearing: Full weightbearing Non-emergency contact: Primary Care Provider Call non-emergency contact if: you have any medication questions Follow-up/Referrals: Sandra Love DO, FACEP [Physician] - 12/28/24 10:00 am Ruben Gordillo MD [Primary Care Provider] - Diet: Carb Consistent or DM2 and Heart Healthy Addtl Attending Provider Instructions: See your PCP Dr. Ruben Gordillo within 5-7 days of hospital discharge. See your Wound Care Clinic within 5-7 days of hospital discharge. Addtl Cover Maker Provider Instructions: DIABETES RECOMMENDATIONS: 1.) Start Lantus 1x/day. 2.) Discontinue Jardiance. 3.) Use FreeStyle Sadiq data to guide further diabetes medication adjustments. 4.) Aim to maintain blood sugar levels below 180 (ideally less than 140 before meals) to support healing/continued recovery and strengthening. 5.) Notify provider of blood sugar levels frequently above 180 or any value below 70. 6.) Regular/balanced meals with protein thru day. Continue protein supplement at rehab facility to ensure adequate protein intake to support healing. DIABETES PRESCRIPTIONS NEEDED AT DISCHARGE: 1.) Lantus Solostar Pen. 2.) Pen Needle 32 gauge x 32- to inject 1x/day. Insurance requires frequency of use (1x/day) be indicated on the prescription for coverage/dispensing purposes. If you have any questions, please call our diabetes office at [phone]. Pending Studies at Discharge: No Stand-Alone Forms: My [facility] pickrset, Smoking Cessation Medications and DC Order Prescriptions: New doxycycline hyclate 100 mg Capsule 100 mg PO BID Qty: 7 0RF lisinopril 5 mg Tablet 5 mg PO QAM Qty: 30 0RF amoxicillin-pot clavulanate 875-125 mg Tablet 1 tab PO BIDM Qty: 7 0RF insulin glargine [Lantus U-100 Insulin] 100 unit/mL Solution 20 unit SC DAILY Qty: 10 0RF Continued pantoprazole 40 mg Tablet,Delayed Release (Dr/Ec) 40 mg PO QAM montelukast 10 mg Tablet 10 mg PO QAM duloxetine 60 mg capsule,delayed release(DR/EC) 60 mg PO QAM aspirin 81 mg tablet,delayed release (DR/EC) 81 mg PO QAM duloxetine 30 mg capsule,delayed release(DR/EC) 30 mg PO QAM clonazepam 0.5 mg tablet 0.5 mg PO BID PRN (Reason: Anxiety) atorvastatin 40 mg tablet 40 mg PO QAM clopidogrel 75 mg tablet 75 mg PO DAILYBL ramelteon 8 mg tablet 8 mg PO HS PRN (Reason: Sleep) metoprolol succinate 50 mg Tablet Extended Release 24 Hr 50 mg PO BID Qty: 60 0RF baclofen 20 mg tablet 20 mg PO BID gabapentin 300 mg capsule 300 mg PO TID metformin 500 mg tablet extended release 24 hr 1,000 mg PO BID buspirone 15 mg tablet 15 mg PO BID bupropion HCl 300 mg tablet extended release 24 hr 300 mg PO QAM Rx Instructions: Take w/ 150mg to equal 450mg bupropion HCl 150 mg tablet extended release 24 hr 150 mg PO QAM Rx Instructions: Take w/ 300mg to equal 450mg Discontinued Trulicity 1.5 mg/0.5 mL pen injector 1.5 mg SUBCUT WK Rx Instructions: take on TUESDAYS Jardiance 10 mg tablet 10 mg PO QAM midodrine 5 mg tablet See Rx Instructions .ROUTE .COMPLEX Rx Instructions: Take 5mg in the morning, 7.5mg at noon and 7.5mg in the evening Discharge Orders: Discharge Order (Routine); Ordered 12/19/24 Ordered By: Martín Menjivar Discharge Order- CHF (Routine); Ordered 12/19/24 Ordered By: Martín Hurst/Other Patient Handouts: Managing Type 2 Diabetes Admission Data Admit Date/Time: 12/03/24 17:16 Attending Provider: Martín Menjivar Admit Provider: Juan Carlos Braun Primary Care Provider: Ruben Gordillo Other Providers: [facility]; [facility]; [facility], [facility],[employer]; Juan Carlos Braun; Artie Lepe Hospital Stay Data Consultations 12/03/24 17:04 ED Decision to Admit Stat 12/03/24 17:36 Consult Orthopedic Surgery Routine 12/11/24 10:27 Consult Infectious Diseases Routine Procedures Performed Operation Date: 12/09/24 08:00 Actual Procedures p Incision and Drainage Right Leg with Application of Wound Vac(Right) - Artie Lepe MD Diagnostic Imagining Performed 12/07/24 10:44 MR lower leg RT wo/w con Routine 12/11/24 10:51 MRI Brain [MR brain wo/w con] Routine 12/17/24 08:49 CT head/brain wo con Stat Pending Results Patient Have Any Pending Studies at Discharge: No Discharge Instructions Given to Patient (Per Discharging Provider) See your PCP Dr. Ruben Gordillo within 5-7 days of hospital discharge. See your Wound Care Clinic within 5-7 days of hospital discharge. Total Time Total Time Spent Total Time Spent (In Minutes): 35 minutes. Of this time period, 19 minutes were spent in coordinating patient's discharge. Coding Level of Care Code 06059 INP/OBS DISCH >30 MIN Diagnoses Diabetic ulcer of right lower leg E11.622; L97.919 Acute on chronic urinary retention R33.9 Acute hypernatremia E87.0 Type 2 diabetes mellitus with diabetic neuropathy, unspecified E11.40 Candidal UTI (urinary tract infection) B37.49
--- NOTE | 2024-12-21 12:06 | Coding Query ---
CODING QUERY FOR UNCONTROLLED DIABETES To promote full compliance with coding requirements relating to patient care, provider participation is requested in all cases of leasing representative uncertainty. Please assist us with the question(s) below: Coding Question: The term uncontrolled Diabetes was used throughout the record. To be able to code this diagnosis properly, could you please clarify the diagnosis below: ( x ) Uncontrolled Diabetes meaning hypoglycemia ( x ) Uncontrolled Diabetes meaning hyperglycemia ( ) Other (please specify) Principal Diagnosis: "that condition established after study, to be chiefly responsible for occasioning the admission of the patient to the hospital for care." Co-Existing Principal Diagnosis: "when two or more diagnoses equally meet the criteria for principal diagnosis as determined by the circumstances of admission, diagnostic work up, and/or therapy provided, and the Alphabetic Index, Tabular List, or another coding guideline does not provide sequencing direction, any one of the diagnoses may be sequenced first." "When the physician has documented what appears to be a current diagnosis in the body of the record, but has not included the diagnosis in the final diagnostic statement, the physician should be asked whether the diagnosis should be added." (Source Coding Clinic 2 QTR90. p3-4) JOSSE
--- NOTE | 2024-12-22 07:59 | Coding Query ---
SEPSIS To promote full compliance with coding requirements relating to patient care, physician participation is requested in all cases of advertising display rotator uncertainty. Please assist us with the question(s) below: In responding to this query, please exercise your independent professional judgement. The fact that a question is asked does not imply that any particular answer is desired or expected. We appreciate your clarification on this issue. Throughout the medical record, you have clearly documented a localized infection and your patient has clinical evidence of a generalized sepsis or severe sepsis. The term urosepsis is a nonspecific entity and is coded as an UTI. If the patient has sepsis, severe sepsis, from an urinary source or some other source, please clarify in your response below. The medical record reflects the following clinical findings: (With dates as appropriate) (Body temperature of >38.3 C(101 F) or <36 C(96.8F), pulse >90/minute, respirations >20/minute, WBC count >12,000 or <4,000, altered mental status, significant edema or positive fluid balance, hyperglycemia without diabetes, hypotension, metabolic acidosis (elev. lactate level, anion gap or reduced blood pH), shock, positive blood culture (enter organism) ____ ()Bacteremia (Nonspecific laboratory finding of bacteria in the blood) Specify Organism () Present on Admission () Not present on admission () Unable to clinically determine () Septicemia (Systemic disease associated with the presence of pathogenic microorganisms in the blood): Specify Organism () Present on Admission () Not present on admission () Unable to clinically determine () Sepsis Specify Organism Specify Associated Condition/Diagnosis () Present on Admission () Not present on admission () Unable to clinically determine () Severe Sepsis (Sepsis associated with acute organ dysfunction) Specify Organism Specify Associated Condition/Diagnosis () Present on Admission () Not present on admission () Unable to clinically determine (x) Septic Shock (Severe sepsis with acute circulatory failure, unexplained by other causes) (x) Present on Admission () Not present on admission () Unable to clinically determine () Other, patient has: MTDD
== END 2024-12-19 16:43 | disposition home health service (06) | DRG 854 ==
LOC: ED 15:32 → 4W 17:16 → SUATTDRO 17:16 → 4W 19:50 → 3N 12-14 17:03